=== PATIENT | female | born 1975 | race Caucasian/White ===

== ENCOUNTER → 2022-06-07 11:44 | Outpatient (BNVA) | payer MEDICAID, SELFPAY | PROVIDERS: PCP Family Medicine; Visit Provider Nurse Practitioner Psychiatric/Mental Health | DX: F11.20 Opioid dependence, uncomplicated (principal); Z51.81 Encounter for therapeutic drug level monitoring; Z79.899 Other long term (current) drug therapy | CPT/HCPCS: 99212 ==

== ENCOUNTER → 2022-06-14 10:30 | Outpatient (BNVA) | payer MEDICAID, SELFPAY | PROVIDERS: PCP Family Medicine; Visit Provider Nurse Practitioner Psychiatric/Mental Health | DX: Z51.81 Encounter for therapeutic drug level monitoring (principal); F11.20 Opioid dependence, uncomplicated | CPT/HCPCS: 80305; 99212 ==

== ENCOUNTER → 2022-06-21 10:48 | Outpatient (BNVA) | payer MEDICAID, SELFPAY | PROVIDERS: PCP Family Medicine; Visit Provider Nurse Practitioner Psychiatric/Mental Health | DX: Z51.81 Encounter for therapeutic drug level monitoring (principal); F11.20 Opioid dependence, uncomplicated | CPT/HCPCS: 80305; 99212 ==

== ENCOUNTER → 2022-06-28 10:38 | Outpatient (BNVA) | payer MEDICAID, SELFPAY | PROVIDERS: PCP Family Medicine; Visit Provider Nurse Practitioner Psychiatric/Mental Health | DX: Z51.81 Encounter for therapeutic drug level monitoring (principal); F11.20 Opioid dependence, uncomplicated | CPT/HCPCS: 80305; 99212 ==

== ENCOUNTER → 2022-07-05 10:55 | Outpatient (BNVA) | payer MEDICAID, SELFPAY | PROVIDERS: PCP Family Medicine; Visit Provider Nurse Practitioner Psychiatric/Mental Health | DX: Z51.81 Encounter for therapeutic drug level monitoring (principal); F11.20 Opioid dependence, uncomplicated | CPT/HCPCS: 99212 ==

== ENCOUNTER → 2022-08-02 11:21 | Outpatient (BNVA) | payer MEDICAID, SELFPAY | PROVIDERS: PCP Family Medicine; Visit Provider Nurse Practitioner Psychiatric/Mental Health | DX: F11.20 Opioid dependence, uncomplicated (principal) | CPT/HCPCS: 99212 ==

== ENCOUNTER 2022-08-31 11:03 | Outpatient (REF) | payer MEDICAID, SELFPAY ==
[2022-09-10 09:38] LABS: Buprenorphine 7; Naloxone NEGATIVE; Norbuprenorphine 53
== END 2022-08-31 11:04 | disposition home or self-care (01) ==
LOC: HO.LAB 11:03
PROVIDERS: PCP Family Medicine; Visit Provider Nurse Practitioner Psychiatric/Mental Health
DX: F11.20 Opioid dependence, uncomplicated (principal); Z51.81 Encounter for therapeutic drug level monitoring; Z79.899 Other long term (current) drug therapy
CPT/HCPCS: 80305; 80348; 80362; 99212

== ENCOUNTER → 2022-09-27 11:13 | Outpatient (BNVA) | payer MEDICAID, SELFPAY | PROVIDERS: PCP Family Medicine; Visit Provider Nurse Practitioner Psychiatric/Mental Health | DX: Z51.81 Encounter for therapeutic drug level monitoring (principal); F11.20 Opioid dependence, uncomplicated | CPT/HCPCS: 99212 ==

== ENCOUNTER → 2022-10-25 11:29 | Outpatient (BNVA) | payer MEDICAID, SELFPAY | PROVIDERS: PCP Family Medicine; Visit Provider Nurse Practitioner Psychiatric/Mental Health | DX: F11.20 Opioid dependence, uncomplicated (principal) | CPT/HCPCS: 99212 ==

== ENCOUNTER → 2022-11-22 11:30 | Outpatient (BNVA) | payer MEDICAID, SELFPAY | PROVIDERS: PCP Family Medicine; Visit Provider Nurse Practitioner Psychiatric/Mental Health | DX: F11.20 Opioid dependence, uncomplicated (principal); Z51.81 Encounter for therapeutic drug level monitoring; Z79.899 Other long term (current) drug therapy | CPT/HCPCS: 80305; 99212 ==

== ENCOUNTER → 2022-12-20 11:29 | Outpatient (BNVA) | payer OTHER, SELFPAY | PROVIDERS: PCP Family Medicine; Visit Provider Nurse Practitioner Psychiatric/Mental Health | DX: Z51.81 Encounter for therapeutic drug level monitoring (principal); F11.20 Opioid dependence, uncomplicated | CPT/HCPCS: 80305; 99212 ==

== ENCOUNTER → 2023-01-17 11:03 | Outpatient (BNVA) | payer OTHER, SELFPAY | PROVIDERS: PCP Family Medicine; Visit Provider Nurse Practitioner Psychiatric/Mental Health | DX: Z51.81 Encounter for therapeutic drug level monitoring (principal); F11.20 Opioid dependence, uncomplicated | CPT/HCPCS: 99212 ==

== ENCOUNTER → 2023-02-15 11:12 | Outpatient (BNVA) | payer MEDICAID, SELFPAY | PROVIDERS: PCP Family Medicine; Visit Provider Nurse Practitioner Psychiatric/Mental Health | DX: F11.20 Opioid dependence, uncomplicated (principal) | CPT/HCPCS: 99212 ==

== ENCOUNTER 2023-03-29 11:05 | Outpatient (AMB) | payer MEDICAID, SELFPAY ==
--- NOTE | 2023-03-29 11:14 | A.OFFVIS_ITS ---
Intake Vital Signs 03/29/23 11:15 BP 95/50 L Blood Pressure Location Lt brachial Position Sitting Pulse 85 Pulse Oximetry (%) 95 Intake Visit Reasons: MAT VISIT Allergies Penicillins [PENICILLINS] Allergy (Mild, Unverified 02/15/23 11:13) HIVES Antihistamines - Alkylamine [ANTIHISTAMINES - ALKYLAMINE] Adverse Reaction (Intermediate, Unverified 02/15/23 11:13) feels like bugs are crawling on her hydroxyzine [From VISTARIL] Adverse Reaction (Intermediate, Unverified 02/15/23 11:13) feels like bugs are crawling on her GRASS Allergy (Mild, Uncoded 02/15/23 11:13) UNKNOWN HPI MAT VISIT HPI Details Pt presents for OUD treatment follow up Currently being prescribed Suboxone 8 mg b.i.d. Denies any side effects related to medication Review of Systems Const Reports as per HPI and Reports no additional complaints Physical Exam Vital Signs: Last Vital Signs Pulse 85 03/29/23 11:15 BP 95/50 L 03/29/23 11:15 Pulse Ox 95 03/29/23 11:15 Const General: cooperative and comfortable Assessment & Plan Assessment & Plan (1) Opioid use disorder: Code(s): F11.90 - Opioid use, unspecified, uncomplicated Plan: * continue suboxone at current dose * follow up 6 weeks Medications: Refilled buprenorphine-naloxone 8-2 mg (Suboxone) 1 film sublingual BID 42 ea 1RF Coding Level of Care Code Tele Est Pt Level 3 (13164) Diagnoses Opioid use disorder F11.90
[2023-03-29 11:15] VITALS: BP 95/50; PULSE 85; O2SAT 95
== END 2023-03-29 13:03 | disposition home or self-care (01) ==
LOC: HO.HCC 11:05
PROVIDERS: PCP Family Medicine; Visit Provider Nurse Practitioner Psychiatric/Mental Health
DX: F11.90 Opioid use, unspecified, uncomplicated (principal)
CPT/HCPCS: 99213

== ENCOUNTER → 2023-03-29 11:05 | Outpatient (BNVA) | payer MEDICAID, SELFPAY | PROVIDERS: PCP Family Medicine; Visit Provider Nurse Practitioner Psychiatric/Mental Health | DX: Z51.81 Encounter for therapeutic drug level monitoring (principal); F11.90 Opioid use, unspecified, uncomplicated ==

== ENCOUNTER 2023-05-10 10:49 | Outpatient (AMB) | payer MEDICAID, SELFPAY ==
[2023-05-10 10:59] VITALS: BP 102/66; PULSE 70; O2SAT 99
--- NOTE | 2023-05-10 10:59 | A.OFFVIS_ITS ---
Intake Vital Signs 05/10/23 10:59 BP 102/66 Blood Pressure Location Lt radial Position Sitting Pulse 70 Pulse Source Pulse Oximeter Pulse Oximetry (%) 99 Oxygen Delivery Method Room Air Intake Visit Reasons: MAT VISIT Intake Note: the patient presents for a mat visit Transportation Planning Technician Required: No Allergies Penicillins [PENICILLINS] Allergy (Mild, Unverified 05/10/23 10:59) HIVES Antihistamines - Alkylamine [ANTIHISTAMINES - ALKYLAMINE] Adverse Reaction (Intermediate, Unverified 05/10/23 10:59) feels like bugs are crawling on her hydroxyzine [From VISTARIL] Adverse Reaction (Intermediate, Unverified 05/10/23 10:59) feels like bugs are crawling on her GRASS Allergy (Mild, Uncoded 05/10/23 10:59) UNKNOWN Do you need a note to return to daycare/school/sports/work: No HPI MAT VISIT HPI Details Pt presents for OUD treatment follow up Currently being prescribed Suboxone 8mg BID Denies any side effects related to medication No questions or concerns at this time. Overall bright affect during visit. Review of Systems Const Reports as per HPI and Reports no additional complaints Physical Exam Vital Signs: Last Vital Signs Pulse 70 05/10/23 10:59 BP 102/66 05/10/23 10:59 Pulse Ox 99 05/10/23 10:59 Oxygen Delivery Method Room Air 05/10/23 10:59 Const General: cooperative and comfortable Assessment & Plan Assessment & Plan (1) Opioid use disorder: Code(s): F11.90 - Opioid use, unspecified, uncomplicated Plan: * continue suboxone at current dose * follow up 6 weeks Medications: Refilled buprenorphine-naloxone 8-2 mg (Suboxone) 1 film sublingual BID 42 ea 1RF Coding Level of Care Code Est Pt Level 3 (75065) Diagnoses Opioid use disorder F11.90
== END 2023-05-10 11:24 | disposition home or self-care (01) ==
LOC: HO.HCC 10:49
PROVIDERS: PCP Family Medicine; Visit Provider Nurse Practitioner Psychiatric/Mental Health
DX: F11.90 Opioid use, unspecified, uncomplicated (principal)
CPT/HCPCS: 99213

== ENCOUNTER → 2023-05-10 10:49 | Outpatient (BNVA) | payer MEDICAID, SELFPAY | PROVIDERS: PCP Family Medicine; Visit Provider Nurse Practitioner Psychiatric/Mental Health | DX: F11.20 Opioid dependence, uncomplicated (principal) | CPT/HCPCS: 99212 ==

== ENCOUNTER 2023-06-21 11:06 | Outpatient (AMB) | payer MEDICAID, SELFPAY ==
[2023-06-21 11:11] VITALS: BP 102/70; PULSE 62; O2SAT 93
--- NOTE | 2023-06-21 11:11 | A.OFFVIS_ITS ---
Intake Vital Signs 06/21/23 11:11 BP 102/70 Blood Pressure Location Lt radial Position Sitting Pulse 62 Pulse Source Pulse Oximeter Pulse Oximetry (%) 93 Oxygen Delivery Method Room Air Intake Visit Reasons: MAT VISIT Intake Note: The patient presents for a mat visit Design Center Consultant Required: No Allergies Penicillins [PENICILLINS] Allergy (Mild, Unverified 06/21/23 11:12) HIVES Antihistamines - Alkylamine [ANTIHISTAMINES - ALKYLAMINE] Adverse Reaction (Intermediate, Unverified 06/21/23 11:12) feels like bugs are crawling on her hydroxyzine [From VISTARIL] Adverse Reaction (Intermediate, Unverified 06/21/23 11:12) feels like bugs are crawling on her GRASS Allergy (Mild, Uncoded 06/21/23 11:12) UNKNOWN Do you need a note to return to daycare/school/sports/work: No HPI MAT VISIT HPI Details Pt presents for OUD treatment follow up Currently being prescribed Suboxone 8mg BID Denies any side effects related to medication Not feeling well today. Review of Systems Const Reports as per HPI, Reports headache(s) and Reports malaise ENT Reports headache(s) Neuro Reports headache(s) Physical Exam Vital Signs: Last Vital Signs Pulse 62 06/21/23 11:11 BP 102/70 06/21/23 11:11 Pulse Ox 93 06/21/23 11:11 Oxygen Delivery Method Room Air 06/21/23 11:11 Const General: cooperative and comfortable Assessment & Plan Assessment & Plan (1) Opioid use disorder: Code(s): F11.90 - Opioid use, unspecified, uncomplicated Plan: * continue suboxone at current dose * follow up 8weeks Medications: Refilled buprenorphine-naloxone 8-2 mg (Suboxone) 1 film sublingual BID 60 ea 1RF Coding Level of Care Code Est Pt Level 3 (49183) Diagnoses Opioid use disorder F11.90
== END 2023-06-21 11:56 | disposition home or self-care (01) ==
PROVIDERS: PCP Family Medicine; Visit Provider Nurse Practitioner Psychiatric/Mental Health
DX: F11.90 Opioid use, unspecified, uncomplicated (principal)
CPT/HCPCS: 99213

== ENCOUNTER → 2023-06-21 11:06 | Outpatient (BNVA) | payer MEDICAID, SELFPAY | PROVIDERS: PCP Family Medicine; Visit Provider Nurse Practitioner Psychiatric/Mental Health | DX: F11.20 Opioid dependence, uncomplicated (principal) | CPT/HCPCS: 99212 ==

== ENCOUNTER 2023-09-19 13:11 | Inpatient (IN) | payer MEDICAID, SELFPAY ==
--- NOTE | ~2023-09-19 | XR_ITS ---
EXAMINATION: XR CHEST CLINICAL INFORMATION: Cough. COMPARISON: 04/24/2016 TECHNIQUE: Frontal view of the chest was obtained. FINDINGS: The lungs are well expanded. No focal consolidation. No pleural effusion. Cardiac silhouette is unchanged. XR/XR chest 1V IMPRESSION: No acute abnormality.
--- NOTE | ~2023-09-19 | US_ITS ---
EXAMINATION: US VENOUS ULTRASOUND WITH DOPPLER LOWER EXTREMITY, BILATERAL CLINICAL INFORMATION: Lower extremity edema COMPARISON: None available. TECHNIQUE: Ultrasound of the deep veins is performed from the hip to the calf with compression sonography and color and pulse Doppler assessment. Spectral analysis with color-flow imaging is performed. FINDINGS: RIGHT: There is normal venous compression and respiratory variation and augmented flow. The visualized common femoral vein, superficial femoral vein, profunda femoral vein, popliteal vein, and the trifurcation region shows no evidence of deep venous thrombosis. There is no significant popliteal fossa cyst. Subcutaneous edema seen within the calf LEFT: There is normal venous compression and respiratory variation and augmented flow. The visualized common femoral vein, superficial femoral vein, profunda femoral vein, popliteal vein, and the trifurcation region shows no evidence of deep venous thrombosis. There is no significant popliteal fossa cyst. Subcutaneous edema seen within the calf If the patient's symptoms persist, followup ultrasound in 5 days 7 days might be of value to exclude proximal propagation from a non-visualized calf vein. US/US venous duplex LE BI IMPRESSION: No DVT demonstrated in the bilateral lower extremity.
[2023-09-19 13:20] VITALS: BP 116/72; PULSE 80; O2SAT 98
[2023-09-19 13:52] VITALS: BP 125/71; PULSE 74; RESP 16; TEMP 37.2; O2SAT 95; BMI 22.7
--- NOTE | 2023-09-19 14:06 | ED_ITS ---
HPI - General Adult General Chief complaint: Altered Mental Status Stated complaint: INCREASED CONFUSION,?UTI PER EMS Time Seen by Provider: 09/19/23 13:49 History of Present Illness HPI narrative: The patient is a 48-year-old female who says that she is normally on Suboxone. She came to the emergency department today by ambulance from [place] because she says she has not seen her for a few days. She says that she heard that he was at this hospital and therefore called an ambulance and was brought here. She has been staying with her sister. She says she normally takes Suboxone 8 mg 2 times a day and has not taken any Suboxone so far today. Additional history was available after talking to the patient's sister Samantha. 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 Apparently the patient was here at this hospital yesterday when her fiance (Clement) was admitted to the hospital for a lower extremity infection. According to the patient's sister Samantha, Clement is a paid caregiver for the patient. He apparently is hired by an organization called [employer] and he has paid to look after her because of her disability secondary to her Korsakoff's syndrome. Stays he describes the patient as having significant dementia. Apparently the patient w as here in the emergency room yesterday when Clement was being admitted. She apparently eloped from the emergency department and it was not clear where she had gone. According to Samantha the patient made it to [place] yesterday and spent the night at her sister's house. Today the sisters and the patient decided she should return to the hospital and so called an ambulance. The sister states he says that she went to the home where the patient has been staying with Clement and stays he describes this as a ?hoarder house. The sister states he is very concerned about the care the patient is receiving. The sister further states that the patient's parents have disowned her and are not involved. As far as the sister knows there is no guardian for the patient. Related Data Previous Rx's Medication Instructions Recorded buprenorphine 8 mg-naloxone 2 mg 1 film sublingual BID #60 ea 09/13/23 sublingual film (Suboxone) Allergies Allergy/AdvReac Type Severity Reaction Status Date / Time Penicillins [PENICILLINS] Allergy Mild HIVES Verified 09/19/23 16:35 Antihistamines - Alkylamine AdvReac Intermediate feels like Verified 09/19/23 16:35 [ANTIHISTAMINES - ALKYLAMINE] bugs are crawling on her hydroxyzine [From VISTARIL] AdvReac Intermediate feels like Verified 09/19/23 16:35 bugs are crawling on her GRASS Allergy Mild UNKNOWN Uncoded 06/21/23 11:12 Review of Systems Review of Systems: Yes all other systems are reviewed and are negative [facility] Social History Social History Unable to assess alcohol history related to: Unknown Smoked in Last 30 Days: Yes Use of substances other than those prescribed or required for medical reasons: Unknown Advance Directives: No Advance Directives Information Provided: Yes Patient : No Physical Exam ED Vital Signs: Vital Signs - 24 hr 09/19/23 13:52 09/19/23 14:15 09/19/23 14:30 Temperature 98.9 F 98.3 F Pulse Rate 74 76 Respiratory Rate 16 16 16 Blood Pressure 125/71 100/66 Pulse Oximetry 95 95 Oxygen Delivery Method Room Air Room Air BMI result Body Mass Index 22.7 Const Other: The patient is a slight 48-year-old woman who was awake and alert. She seems poorly oriented. She does not seem in distress. HENMT Other: Face is symmetrical. Mucous membranes moist. Eyes Other: Pupils are round equal, conjunctivae clear, extraocular movements intact Neck Other: No JVD Resp Effort & Inspection: normal respiratory effort Auscultation: clear to auscultation bilaterally Cardio Rate: regular rate Rhythm: regular rhythm Heart sounds: S1 normal heart sound present and S2 normal heart sound present Skin Other: Skin is dry and unremarkable Neuro Other: The patient is awake and alert. She seems poorly oriented. No obvious cranial nerve deficits. Her gait seems reasonably steady. She does not seem to have obvious focal neurological deficits but her cognition seems impaired. Extrem Other: No peripheral edema. Medications Administered Discontinued Medications Generic Name Dose Route Start Last Admin Trade Name Christopherq PRN Reason Stop Dose Admin Buprenorphine/Naloxone 1 film 09/19/23 14:06 09/19/23 14:33 Buprenorphine/Naloxone 8/2 Mg Film SUBLINGUAL 09/19/23 14:07 1 film ONCE ONE Administration Medical Decision Making Medical Decision Making MDM Narrative: The patient is a 48-year-old female who may have Korsakoff syndrome and who was on Suboxone 8 mg b.i.d.. As far as I can tell the person new normally looks after her has been hospitalized and she therefore presented to her sister's house for coming here by ambulance today. The patient is asking to see Clement, her caregiver. She has tested positive for opioids and fentanyl. This would be unusual for a person taking Suboxone. After speaking to the patient's sister Samantha it is not clear whether the patient is considered to have capacity to make any decisions. I have consulted with case management who have requested a psychiatric consult to determine capacity. As I suspect the patient does not have capacity to make her own decisions I think the patient will need to be held in the emergency department at least until further information can be obtained. I have ordered the patient's Suboxone. The patient has requested nicotine gum. Lab Data Labs: Lab Results 09/19/23 09/19/23 Range/Units 14:33 14:34 Urine Color Yellow Urine Appearance Clear Urine pH 6.0 (5.0-9.0) Ur Specific [place] 1.025 (1.005-1.025) Urine Protein Trace (Neg-Trace) mg/dL Urine Glucose (UA) Negative (Negative) mg/dL Urine Ketones Trace (Negative) mg/dL Urine Blood Small (1+) H (Negative) Urine Nitrite Negative (Negative) Ur Leukocyte Esterase Negative (Negative) Urine RBC 3-5 H (0-2) /HPF Urine WBC 0-5 (0-5) /HPF Ur Squamous Epith Cells 3-5 (0-2) /HPF Calcium Oxalate Crystal Present Urine Bacteria None Seen (None Seen) Hyaline Casts 0-2 (0-2) /LPF Urine Opiates Screen POSITIVE H (Not Detect) Urine Fentanyl Screen POSITIVE H (Not Detect) Ur Barbiturates Screen Not Detected (Not Detect) Ur Phencyclidine Scrn Not Detected (Not Detect) Ur Amphetamines Screen Not Detected (Not Detect) U Benzodiazepines Scrn Not Detected (Not Detect) Urine Cocaine Screen Not Detected (Not Detect) U Marijuana (THC) Screen Not Detected (Not Detect) Discharge Plan Discharge Clinical Impression: Cognitive impairment, Opioid use disorder Patient Disposition: Still a Patient Prescriptions: No Action buprenorphine-naloxone [Suboxone] 8-2 mg film 1 film sublingual BID Qty: 60 0RF
[2023-09-19 14:15] VITALS: RESP 16
[2023-09-19 14:30] VITALS: BP 100/66; PULSE 76; RESP 16; TEMP 36.8; O2SAT 95
[2023-09-19] MEDS: Buprenorphine/Naloxone 8/2 mg FILM 1 FILM SUBLINGUAL ×2 (14:33→21:39)
[2023-09-19 14:43] LABS: Appearance Urine Clear; Color Urine Yellow; Glucose Urine UA Negative (Negative); Leukocyte Esterase Urine Negative (Negative); Nitrite Urine Negative (Negative); Specific Gravity - Urine 1.025 (1.005-1.025); UMIC TRIGGER UACC YES; Urine Blood Small (1+) (Negative); Urine Ketones Trace mg/dL (Negative); Urine Protein Trace mg/dL (Neg-Trace)
[2023-09-19 14:49] LABS: Amphetamine Screen Urine Not Detected (Not Detect); Barbiturates, Urine Not Detected (Not Detect); Benzodiazepines Screen Urine Not Detected (Not Detect); Cannabinoid Screen Urine Not Detected (Not Detect); Cocaine Screen Urine Not Detected (Not Detect); Fentanyl, urine POSITIVE (Not Detect); Opiate Screen Urine POSITIVE (Not Detect); Phencyclidine Screen Urine Not Detected (Not Detect)
[2023-09-19 14:59] LABS: Bacteria Urine None Seen (None Seen); Calcium Oxalate Crystals Urine Present; Hyaline Casts Urine 0-2 /LPF (0-2); WBC Urine 0-5 /HPF (0-5)
--- NOTE | 2023-09-19 15:00 | PC.NURSE ---
Pt is alert to self and place, here because sister is concerned about pt having UTI, pt needs constant redirection. VMT observation set up due to pt being a flight risk.
--- NOTE | 2023-09-19 15:44 | MHC.EDTECH ---
Patient asked for a nicotine patch and for . Charge nurse jero Vaca
[2023-09-19] MEDS: Nicotine Polacrilex 2 MG GUM BUCCAL (17:22)
[2023-09-19 17:32] LABS: MANUAL DIFF FLAG NO
[2023-09-19 17:46] LABS: Basophils Percent Auto 0.5 % (0-2); Eosinophils Absolute Auto 0.1 X10*3/uL (0.0-0.4); Eosinophils Percent Auto 1.2 % (0-4); Hematocrit 38.3 % (37.0-47.0); Hemoglobin 12.9 g/dl (12.0-16.0); Imm Gran Abs Auto 0.02 X10*3/uL (0.00-0.03); Imm Gran Pct Auto 0.2 % (0.0-0.4); Lymphocytes Absolute Auto 1.7 X10*3/uL (1.2-4.9); Lymphocytes Percent Auto 19.5 % (20-40); Mean Corpuscular HGB Conc 33.7 g/dl (31.0-35.0); Mean Corpuscular Hemoglobin 32.4 pg (27.0-33.0); Mean Corpuscular Volume 96.2 fL (80.0-98.0); Mean Platelet Volume 10.4 fL (9.4-12.3); Monocytes Absolute Auto 0.6 X10*3/uL (0.1-1.2); Monocytes Percent Auto 6.5 % (2-11); Neutrophils Absolute Auto 6.1 x10*3/uL (2.0-8.3); Neutrophils Percent Auto 72.1 % (45-73); Platelet Count 169 X10*3/uL (160-400); Red Blood Count 3.98 X10*6/uL (4.20-5.50); Red Cell Distribution Width 12.4 % (11.0-16.0); White Blood Count 8.4 X10*3/uL (4.8-10.8)
[2023-09-19 17:52] LABS: Alanine Aminotransferase 13 U/L (0-31); Albumin Level 4.3 g/dL (3.5-5.0); Alkaline Phosphatase 40 U/L (39-117); Anion Gap 12 (12-20); Aspartate Amino Transferase 16 U/L (5-31); Bilirubin Direct 0.2 mg/dL (0.0-0.5); Bilirubin Total 0.4 mg/dL (0.0-1.0); Blood Urea Nitrogen 13 mg/dL (9-16); Calcium 9.7 mg/dL (8.4-10.2); Carbon Dioxide 26 mmol/L (22-29); Chloride 106 mmol/L (96-108); Creatinine Clr Calc Pharmacy 75.5; Estimated Glomerular Filt Rate > 60; Ethanol < 10 mg/dL; Glucose Random 104 mg/dL (60-115); Sodium 140 mmol/L (135-145); Total Protein 7.1 g/dL (6.5-8.0)
[2023-09-19 19:24] VITALS: BP 120/69; PULSE 69; RESP 17; TEMP 37.2; O2SAT 95
--- NOTE | 2023-09-19 19:25 | PC.NURSE ---
this rn assumed care of pt. pt sitting up in stretcher tearful at this time wondering where he is. vss. camera in place for safety.
--- NOTE | 2023-09-19 20:12 | MHC.CM.ED ---
Addendum entered by Joann Lea 09/19/23 21:45: Received a telephone call from Risa, patient's sister. Risa expressed many concerns: Clement is not caring for her sister properly, Sister is dirty, no food in home, sister has lost at least 30 pounds, home hoarder situation, Clement allows sister to drink alcohol and sister drank and drove 2 months ago. Care was totalled. Pt has an active license. Risa tells CM that her sister lies and makes up stories. States her sister was diagnosed with bipolar disorder and has been manic. Risa tells CM that her sister has been hospitalized many times for psychiatric concerns, but never stays long. Risa tells CM that she has a HCP at home, which was completed yesterday. Risa tells CM that the patient signed it and there were 2 witnesses. States her neighbor has a fax machine and she will fax the HCP to us tomorrow. Fax number given. HCP#1 Is sister, Conchis Block ([phone]) and she is deaf. HCP #2 is Risa ([phone]). Risa tells CM that both she and her sister would be happy to make medical decisions for her sister if she is deemed to not have capacity and her HCP is invoked. Risa requests that CM call her with any updates and testing results. CARE team consult placed by provider. Addendum entered by Joann Lea 09/19/23 20:31: Provider will order CARE team consult. 1:1 sitter now at bedside. Original Note: CM reviewed medical record. Psych consult is pending for capacity. Pt does not have a HCP and according to her sister, does not have a guardian. Pt has been diagnosed with Korsakoff's dementia and opioid use disorder. Active with [facility] in [facility] for MAT. Pt is on Suboxone. According to sisterSamantha ([phone]), patient's significant other, Clement Wan ([phone]) is a paid MOUNT[employer] SERVICES MANAGER for this patient through [employer] . Samantha is concerned that her sister is not being cared for well, that the home is a hoarder situation and that her sister does not have the mental capacity to make decisions for herself. Pt had a tox screen that was positive for opiates and fentanyl. Significant other was admitted to [facility] yesterday for infected foot. CM attempted to meet with patient. Pt is pacing in room 7. She has a camera in room. She appears very fearful of CM. She is very thin, admits to having little food. Is speaking with rapid speech, unable to stay on topic and is fixated on going to see her boyfriend, Clement. CM explained that she is a patient in the emergency room and cannot visit her boyfriend at this time. Pt is very upset about not seeing him, and continues to ask to leave. Pt denies any abuse from boyfriend of any kind, and states that her sister is having a sexual relationship with her boyfriend. Pt continually tells CM that she walks a lot. Pt denies seeing Sharyn Rios for MAT, although she has had many visits with her. Patient does not seem to have capacity. CM spoke with charge nurse regarding concerns about patient being in room 7, even with a camera, as patient is determined to visit her boyfriend in the hospital. Pt was in ED yesterday with boyfriend, and then left. Ended up at her sisters in [place]. Unsure how patient got to her sisters. Pt is a flight risk. CM also questioned if this patient would be safer in the pod. CM will follow for discharge planning. Will request CARE team evaluation.
[2023-09-19] MEDS: OLANZapine ODT 10 MG TAB.RAPDIS 20 MG TRANSLINGU (21:39)
--- NOTE | 2023-09-19 21:43 | PC.NURSE ---
pt medicated epr mar, pt tolerated well with water. pt has racing thoughts at this time and continues to ask for .
--- NOTE | 2023-09-19 22:31 | PC.NURSE ---
pt sleeping. respirations even and unlabored. sitter at bedside for pt safety.
--- NOTE | 2023-09-20 01:13 | PC.NURSE ---
care team at bedside.
--- NOTE | 2023-09-20 03:00 | PC.NURSE ---
pt transported to overflow at this time, pt noted to have bra on and necklace, overflow RN Domingo aware. security at bedside for transport.
[2023-09-20 06:00] VITALS: BP 96/48; PULSE 50; RESP 16; TEMP 36.7; O2SAT 98
[2023-09-20 07:38] VITALS: BP 135/68; PULSE 57; RESP 17; TEMP 36.6; O2SAT 98
[2023-09-20] MEDS: Buprenorphine/Naloxone 8/2 mg FILM 1 FILM SUBLINGUAL ×2 (10:19→20:32)
--- NOTE | 2023-09-20 11:10 | PC.NURSE ---
handoff from tracy received. pt brought w tech and security to the pod with paperwork in chart in wheelchair. no respiratory distress.
--- NOTE | 2023-09-20 12:53 | PC.NURSE ---
PATIENT SEEN BY KASIA ECHOLS) PT AWARE OF PLAN OF CARE.
--- NOTE | 2023-09-20 15:15 | MHC.CM.ED ---
Patient remains in ER BH Pod. Spoke with Alecia from the [employer]. Alecia can be reached via telephone at [phone]. Clinical updates given. Psych consult is pending to see if patient has the capacity to make her own decisions. Still waiting for patient's sister to send a copy of HCP. Continue to monitor for d/c needs.
--- NOTE | 2023-09-20 16:55 | PC.NURSE ---
PT SEEN BY PIERCER (JESICA). PT AWARE OF PLAN OF CARE.
--- NOTE | 2023-09-20 17:01 | PHA.MEDREC ---
Pharmacy Consult ? Medication Reconciliation Pharmacy has completed the medication reconciliation. Patient states the only medication she takes is Suboxone Bobbi Moura CPhT
--- NOTE | 2023-09-20 17:21 | PC.NURSE ---
resting in bed 5 mostly and out for walking in department at times. calm. has been seen by Barb BHAT.
--- NOTE | 2023-09-20 17:36 | P.CNPS_ITS ---
History of Present Illness Date of Service: 09/20/2023 Chief Complaint: INCREASED CONFUSION,?UTI PER EMS Reason for Consult: capacity Discussed with referring provider: Yes Sources of Information: patient interviewed, chart reviewed and crisis/core team assessment reviewed HPI Narrative: Ms. Carlos is a 48 year-old woman with hx of korsokoff. Pt came via EMS looking for Clement who pt reports is her fiance and she wants to have a baby with him. Collateral information from her sister who reported Clement is caregiver who has been hire to look after her. Although pt is able to tell that this is [facility], and that it is August, pt unable to tell how long she has been in the hospital. She states she is living here. She is unable to tell hx of medical condition. When asked how is she planning to look for this person, pt states I'll just wait here. She reports drinking fluids but poor appetite. Pt appears manourished. Diagnostics Vital Signs (24Hr): Vital Signs - 24 hr 09/19/23 19:24 09/20/23 06:00 09/20/23 07:38 Temperature 98.9 F 98.0 F 97.8 F Pulse Rate 69 50 57 Respiratory Rate 17 16 17 Blood Pressure 120/69 96/48 L 135/68 Pulse Oximetry 95 98 98 Oxygen Delivery Method Room Air Room Air Room Air BMI result Body Mass Index 22.7 Labs 09/19/23 17:25 09/19/23 17:25 Labs: Laboratory Results - last 48 hr 09/19/23 09/19/23 09/19/23 14:33 14:34 17:25 WBC 8.4 RBC 3.98 L Hgb 12.9 Hct 38.3 MCV 96.2 MCH 32.4 MCHC 33.7 RDW 12.4 Plt Count 169 MPV 10.4 Immature Gran % (Auto) 0.2 Neut % (Auto) 72.1 Lymph % (Auto) 19.5 L Sanders % (Auto) 6.5 Eos % (Auto) 1.2 Baso % (Auto) 0.5 Lymph # (Auto) 1.7 Sanders # (Auto) 0.6 Eos # (Auto) 0.1 Baso # (Auto) 0.0 Abs Immat Gran (auto) 0.02 Absolute Neuts (auto) 6.1 Absolute Nucleated RBC 0.000 Nucleated RBC % (auto) 0.0 Sodium 140 Potassium 4.0 Chloride 106 Carbon Dioxide 26 Anion Gap 12 BUN 13 Creatinine 0.68 Estim Creat Clear Calc 75.5 Estimated GFR > 60 Random Glucose 104 Calcium 9.7 Total Bilirubin 0.4 Direct Bilirubin 0.2 AST 16 ALT 13 Alkaline Phosphatase 40 Total Protein 7.1 Albumin 4.3 Urine Color Yellow Urine Appearance Clear Urine pH 6.0 Ur Specific [place] 1.025 Urine Protein Trace Urine Glucose (UA) Negative Urine Ketones Trace Urine Blood Small (1+) H Urine Nitrite Negative Ur Leukocyte Esterase Negative Urine RBC 3-5 H Urine WBC 0-5 Ur Squamous Epith Cells 3-5 Calcium Oxalate Crystal Present Urine Bacteria None Seen Hyaline Casts 0-2 Urine Opiates Screen POSITIVE H Urine Fentanyl Screen POSITIVE H Ur Barbiturates Screen Not Detected Ur Phencyclidine Scrn Not Detected Ur Amphetamines Screen Not Detected U Benzodiazepines Scrn Not Detected Urine Cocaine Screen Not Detected U Marijuana (THC) Screen Not Detected Ethyl Alcohol < 10 Mental Status Exam Mental Status Exam Narrative: Pt is thin, malnourished, in NAD Behavior: cooperative Psychomotor: no agitation or retardation noted Speech: mostly clear, repetitive, spontaneous TP: goal oriented- looking for this person TC: looking for Clement Mood: okay Affect: blunted SI: denies HI: denies VH/AH: no overt signs Delusions: suspect more confabulation s/s to dementia than delusional content Insight/judgment: impaired x 2. Memory/cog: alert, oriented to place, month not situation. May complete MOCA/ACL. Medications Medications Current Medications Buprenorphine/Naloxone (Buprenorphine/Naloxone 8/2 Mg Film) 1 film SUBLINGUAL BID JEANNINE Last Admin: 09/20/23 10:19 Dose: 1 film Allergies Allergies Allergy/AdvReac Type Severity Reaction Status Date / Time Penicillins [PENICILLINS] Allergy Mild HIVES Verified 09/19/23 16:35 Antihistamines - Alkylamine AdvReac Intermediate feels like Verified 09/19/23 16:35 [ANTIHISTAMINES - ALKYLAMINE] bugs are crawling on her hydroxyzine [From VISTARIL] AdvReac Intermediate feels like Verified 09/19/23 16:35 bugs are crawling on her GRASS Allergy Mild UNKNOWN Uncoded 06/21/23 11:12 Assessment & Plan Assessment & Plan (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 Carlos is a 48 year-old woman with hx of Korsakoff who came via EMS looking for Clement who she reports is her fiance and she wants his baby. Clement apparently is the person that family pays to care for her due severe cognitive and memory impairments s/s to Korsakoff. Psychiatry consulted to determine capacity. Pt does NOT have capacity to make medical decisions due to unable to show understanding why she is in the hospital, her own medical conditions nor able to show understanding of more complex information. Pt appears with severe cognitive impairments- may complete MOCA and ACL to get better sense of degree of impairment, but conversational testing shows significant impairment in processing and understanding of more complex information, her ability to plan,coordinate. No need for inpatient psychiatric admission. Pt unable to care for herself but this will not change with any psychiatric medication. Total time managing care of this patient today ____ minutes.
--- NOTE | 2023-09-20 18:25 | MHC.CM.ED ---
Addendum entered by Joann Lea 09/20/23 18:42: Per Barb psychology teacher, no psych admission necessary. Kelsy Chase aware of invalid HCP and need for guardianship, as patient does not have capacity. Original Note: Sister Risa Brunson called and spoke with CM. Risa again expressed concerns about her sister not being discharged, as she cannot care for herself and her partner/MARBLE SETTER is not caring for her either. See previous notes. Risa also states that Clement Wan (MARBLE SETTER/partner) is selling drugs and thinks he is selling her sisters suboxone. Risa will fax HCP they completed with her sister on 09/15/23. Fax received. HCP only has 1 witness, as Samantha is the alternate HCP and she signed as a witness, without a date. Will upload HCP into [employer], but I do not think it is valid. Will alert CM management. Per Barb Solano flight test mechanic, patient does NOT have capacity. Psych consult note pending.
[2023-09-20 21:43] VITALS: BP 98/49; PULSE 61; RESP 14; TEMP 36.4; O2SAT 98
[2023-09-21 01:28] VITALS: BP 109/64; PULSE 51; RESP 15; TEMP 36.4; O2SAT 99
[2023-09-21] MEDS: Buprenorphine/Naloxone 8/2 mg FILM 1 FILM SUBLINGUAL ×2 (08:08→20:43)
[2023-09-21 08:14] VITALS: BP 117/71; PULSE 60; RESP 16; TEMP 36.6; O2SAT 98
--- NOTE | 2023-09-21 11:18 | PC.NURSE ---
Assumed care of patient at 1100, patient is sleeping at this time, equal chest rise noted, no apparent distress. Pt remains under case management, dispo to be determined
[2023-09-21] MEDS: Nicotine Polacrilex 2 MG GUM BUCCAL ×3 (13:22→20:43)
[2023-09-21] MEDS: risperiDONE 0.5 MG TABLET PO (14:09)
--- NOTE | 2023-09-21 14:50 | MHC.CM.ED ---
Pt continues to hold in [facility] 5: psych eval completed and shows pt is not able to make health care decisions for self. HCP provided by sister is invalid and guardianship will need to be pursued d/t severely impaired cognitive function of pt r/t Amadeo's dz. Date for hearing to be established. Pt will then require LTC. ED CM to follow.
--- NOTE | 2023-09-21 16:47 | PC.NURSE ---
Pt approached this RN to request dragan chung. Pt then stated I'm not allowed to eat at home . when asked to elaborate pt states Clement doesn't let me eat, he says I can't so I eat when he is gone .
[2023-09-21 20:45] VITALS: BP 106/78; PULSE 75; RESP 20; TEMP 36.7; O2SAT 98
--- NOTE | 2023-09-21 22:55 | PC.NURSE ---
Pt has uneventful day, now sleeping, respirations even and unlabored, no apparent distress. Continue plan of care for CM follow up
[2023-09-22 03:05] VITALS: BP 114/57; PULSE 74; RESP 16; TEMP 36.4; O2SAT 99
--- NOTE | 2023-09-22 06:17 | PC.NURSE ---
Assumed care of pt at 2300. PT oob to bathroom, gait steady. PT mumbling and responding to verbal stimuli. Requested and provided gingerale. PT found to have jewelry and gown with strong. PT belongings inventoried and secured by HOMAR Esposito. PT denies SI/HI sts oh god no I would never hurt myself, I'm
[2023-09-22 08:24] VITALS: BP 102/59; PULSE 55; RESP 15; TEMP 36.6; O2SAT 98
[2023-09-22] MEDS: Nicotine Polacrilex 2 MG GUM BUCCAL ×5 (10:58→20:16)
[2023-09-22] MEDS: Buprenorphine/Naloxone 8/2 mg FILM 1 FILM SUBLINGUAL ×2 (10:58→20:16)
--- NOTE | 2023-09-22 10:59 | PC.NURSE ---
Assumed care of patient at 1045, morning RN documented against suboxone for this am due to patient sleeping. Pt woke up requesting subxone dose when this RN assumed care. Unscheduled dose administered for both suboxone and nicorette gum. Pt is calm and cooperative, respirations even and unlabored, skin pwd, no apparent distress. Continue plan of care for CM follow up
--- NOTE | 2023-09-22 19:17 | PC.NURSE ---
patient appears to remain asleep at present respirations are even and unlabored patient appears in no distress
[2023-09-22 20:14] VITALS: BP 117/70; PULSE 96; RESP 20; TEMP 37.1; O2SAT 99
[2023-09-23] MEDS: LORazepam 1 MG TABLET 2 MG PO ×3 (01:12→13:08)
[2023-09-23 01:23] VITALS: BP 108/61; PULSE 67; RESP 16; TEMP 36.4; O2SAT 100
[2023-09-23] MEDS: Nicotine Polacrilex 2 MG GUM BUCCAL ×4 (05:26→13:08)
[2023-09-23] MEDS: Buprenorphine/Naloxone 8/2 mg FILM 1 FILM SUBLINGUAL (07:50)
[2023-09-23 07:55] VITALS: BP 102/64; PULSE 84; TEMP 37; O2SAT 100
--- NOTE | 2023-09-23 08:04 | PC.NURSE ---
Bud received her AM dose of Suboxone and her PRN Lorazepam. Bud requiring frequent redirection as she continues to try to enter the bathroom when other patients are using it. Bud also requiring redirection when observed pushing on the POD door and taking things out of the garbage. Garbage cans moved and Bud responsive to redirection to stay away from the door.
--- NOTE | 2023-09-23 09:21 | MHC.CM.ED ---
Addendum entered by Velvet Fortune 09/23/23 14:04: Alecia from [facility] will be on site tomorrow 09/24 to visit with patient. Original Note: Patient remains in ER BH pod. Received voicemail from patient's sister,Risa requesting an update on patient. Spoke with Risa via telephone at [phone]. T/W explained guardianship would be pursued. Also explained patient could be with us over a month and could potentially be placed anywhere in the state of [facility]. Risa verbalized understanding. Continue to monitor for d/c needs.
--- NOTE | 2023-09-23 17:02 | P.CNPS_ITS ---
History of Present Illness Date of Service: 09/23/2023 Chief Complaint: INCREASED CONFUSION,?UTI PER EMS Reason for Consult: f/u Sources of Information: patient interviewed, chart reviewed and crisis/core team assessment reviewed HPI Narrative: Interim Hx: pt presenting as increasingly more intrusive, going into peers' room, not able to retain information. No oriented to situation. Diagnostics Vital Signs (24Hr): Vital Signs - 24 hr 09/22/23 20:14 09/23/23 01:23 09/23/23 07:55 Temperature 98.8 F 97.6 F 98.6 F Pulse Rate 96 67 84 Respiratory Rate 20 16 Blood Pressure 117/70 108/61 102/64 Pulse Oximetry 99 100 100 Oxygen Delivery Method Room Air Room Air Room Air BMI result Body Mass Index 22.7 Labs 09/19/23 17:25 09/19/23 17:25 Mental Status Exam Mental Status Exam Narrative: Pt is thin, malnourished, in NAD Behavior: cooperative Psychomotor: no agitation or retardation noted Speech: mostly clear, repetitive, spontaneous TP: goal oriented- looking for this person TC: looking for Clement Mood: okay Affect: blunted SI: denies HI: denies VH/AH: no overt signs Delusions: suspect more confabulation s/s to dementia than delusional content Insight/judgment: impaired x 2. Memory/cog: alert, oriented to place, month not situation. May complete MOCA/ACL. Medications Medications Current Medications Buprenorphine/Naloxone (Buprenorphine/Naloxone 8/2 Mg Film) 1 film SUBLINGUAL BID [facility] Last Admin: 09/23/23 07:50 Dose: 1 film Nicotine Polacrilex (Nicotine Polacrilex 2 Mg Gum) 2 mg BUCCAL 8XD [facility] Last Admin: 09/23/23 16:19 Dose: Not Given Allergies Allergies Allergy/AdvReac Type Severity Reaction Status Date / Time Penicillins [PENICILLINS] Allergy Mild HIVES Verified 09/19/23 16:35 Antihistamines - Alkylamine AdvReac Intermediate feels like Verified 09/19/23 16:35 [ANTIHISTAMINES - ALKYLAMINE] bugs are crawling on her hydroxyzine [From VISTARIL] AdvReac Intermediate feels like Verified 09/19/23 16:35 bugs are crawling on her GRASS Allergy Mild UNKNOWN Uncoded 06/21/23 11:12 Assessment & Plan Assessment & Plan (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 Carlos is a 48 year-old woman with hx of Korsakoff who came via EMS looking for Clement who she reports is her fiance and she wants his baby. Clement apparently is the person that family pays to care for her due severe cognitive and memory impairments s/s to Korsakoff. Psychiatry consulted to determine capacity. Pt does NOT have capacity to make medical decisions due to unable to show understanding why she is in the hospital, her own medical conditions nor able to show understanding of more complex information. Pt appears with severe cognitive impairments- may complete MOCA and ACL to get better sense of degree of impairment, but conversational testing shows significant impairment in processing and understanding of more complex information, her ability to plan,coordinate. No need for inpatient psychiatric admission. Pt unable to care for herself but this will not change with any psychiatric medication. PLAN 09/23- start seroquel 50mg po TID, prn seroquel 100mg po q6h Total time managing care of this patient today ____ minutes.
[2023-09-23] MEDS: QUEtiapine Fumarate 100 MG TABLET PO (17:06)
[2023-09-23] MEDS: QUEtiapine Fumarate 50 MG TABLET PO (17:06)
[2023-09-23] MEDS: Midazolam HCl/PF 2 MG/2 ML VIAL IM (20:25)
[2023-09-23] MEDS: diphenhydrAMINE HCL 50 MG/ML VIAL IM (20:25)
[2023-09-23] MEDS: Haloperidol Lactate 5 MG/ML VIAL IM (20:26)
--- NOTE | 2023-09-23 23:16 | MHC.EDTECH ---
This pct just assumed care of pt ,RN Hannah said not to wake Pt up to get vitals .
[2023-09-23 23:40] VITALS: BP 100/74; PULSE 63; RESP 16; TEMP 37.1; O2SAT 100
[2023-09-24] VITALS (8 sets, daily range): BP systolic 94–147; BP diastolic 56–98; PULSE 60–98; RESP 15–16; TEMP 36–36.7; O2SAT 97–100
[2023-09-24] MEDS: Divalproex Sodium 250 MG TABLET.DR PO ×5 (00:28→20:12)
[2023-09-24] MEDS: Buprenorphine/Naloxone 8/2 mg FILM 1 FILM SUBLINGUAL ×3 (00:28→20:12)
[2023-09-24] MEDS: QUEtiapine Fumarate 50 MG TABLET PO ×4 (00:28→20:12)
[2023-09-24] MEDS: QUEtiapine Fumarate 100 MG TABLET PO (00:28)
--- NOTE | 2023-09-24 01:01 | PC.NURSE ---
client tucked in after miedcated with hs meds, patient still periodically confised and restless, picking at the air.
--- NOTE | 2023-09-24 03:39 | PC.NURSE ---
patient seems to be sleeping well at this time
--- NOTE | 2023-09-24 04:01 | MHC.EDTECH ---
Patient was up ,vitals taken ,Patient was a 2 asst to ambulate to bathroom ,void and back in bed .
--- NOTE | 2023-09-24 04:06 | PC.NURSE ---
patient awoke briefly, ambulated to bathroom w tech and patient voided, during vs it was observed patient appeared to be grabbing at items on/near floor and it appeared patient was at increased risk of falling unclear if caused by recent med changes or confusion. notified mirror department supervisor and charge nurse, notifying provider.
[2023-09-24] MEDS: Nicotine Polacrilex 2 MG GUM BUCCAL ×3 (09:06→20:12)
--- NOTE | 2023-09-24 09:10 | PC.NURSE ---
this RN resumed care of pt at this time. pt now awake/alert & oriented to self. pt seemingly lethargic but ambulated to the restroom w/ sitter w/ steady gait. resting comfortably in no apparent distress w/ the lights dimmed. pt denies SI/HI at this time. medication administered per provider order. no sob/wob noted. respirations even and unlabored. pt calm/cooperative at this time. 1:1 sitter for safety precautions. call noriega placed within reach.
--- NOTE | 2023-09-24 09:46 | MHC.CM.ED ---
Patient remains in ER. Alecia from [facility] on-site to meet with patient. Also spoke with Clement in [address]. Alecia [facility] will be pursuing guardianship so that LTC placement can be found. Continue to monitor for d/c needs.
--- NOTE | 2023-09-24 10:19 | PC.NURSE ---
pt currently resting/asleep in no apparent distress at this time. respirations remain even and unlabored. 1:1 sitter remains present. call noriega placed within reach.
--- NOTE | 2023-09-24 16:38 | PC.NURSE ---
pt aware at this time. medication originally delayed d/t pt sleeping. medication now administered per provider order. vss and up to date. pt still remains calm and cooperative but talking/mumbling incoherently to herself at this time. pt still denies SI/HI at this time. respirations remain even and unlabored. 1:1 sitter present. call noriega placed within reach.
[2023-09-24] MEDS: Magnesium Oxide 400 MG TABLET PO (20:12)
--- NOTE | 2023-09-24 20:15 | PC.NURSE ---
pt alert,sleepy/lethargic,mumbling sentences under her breath. pt took bedtime medications with no issues, swallowed pills whole with water. pt has no current complaints, drank 1 full cup of water.offered more drink or food but patient declined. resting comfortably, respirations even and unlabored, vital signs updated and entered. call noriega within reach, 1:[address] plan of care ongoing
[2023-09-25 06:00] VITALS: BP 91/59; PULSE 65; RESP 14; TEMP 36.4; O2SAT 98
--- NOTE | 2023-09-25 06:40 | PC.NURSE ---
pt slept throughout the night with no issues
--- NOTE | 2023-09-25 07:39 | PC.NURSE ---
this RN assumed care, pt sleeping at this time.
[2023-09-25] MEDS: Divalproex Sodium 250 MG TABLET.DR PO ×3 (09:51→21:07)
[2023-09-25] MEDS: Buprenorphine/Naloxone 8/2 mg FILM 1 FILM SUBLINGUAL ×2 (09:52→21:07)
[2023-09-25] MEDS: QUEtiapine Fumarate 50 MG TABLET PO ×3 (09:52→21:07)
--- NOTE | 2023-09-25 09:59 | PC.NURSE ---
pt awake and alert, mumbling sentences under her breath. Breathing even and unlabored. pt medicated per MAR, did not want nicotine gum.
--- NOTE | 2023-09-25 11:46 | MHC.CM.ED ---
Patient remains in ER. Risk letter received from [employer] stating Clement should not be caregiver for patient any longer. Tonia Laird CM director aware. Continue to monitor for d/c needs.
[2023-09-25 12:15] VITALS: BP 107/59; PULSE 74; RESP 16; TEMP 37; O2SAT 96
--- NOTE | 2023-09-25 12:22 | PC.NURSE ---
vss and up to date at this time. pt declines nicorette gum administration. resting comfortably in no apparent distress w/ the lights dimmed at this time. calm/cooperative. respirations even and unlabored. 1:1 sitter present. call noriega placed within reach.
[2023-09-25 14:31] VITALS: BP 126/72; PULSE 69; RESP 16; O2SAT 96
--- NOTE | 2023-09-25 14:31 | PC.NURSE ---
pt continues to sleep/rest in no apparent distress at this time. respirations remain even and unlabored. 1:1 sitter present. call noriega placed within reach.
--- NOTE | 2023-09-25 14:50 | PC.NURSE ---
report given to RAFFAELE Gardner in overflow at this time. transport notified at this time.
[2023-09-25] MEDS: Nicotine Polacrilex 2 MG GUM BUCCAL (14:54)
--- NOTE | 2023-09-25 15:40 | PC.NURSE ---
this rn assumed care of pt. overflow CORD SPLICER reported to this RN that pt was making SI statements upon coming to overflow. this RN assessed pt, pt denying SI and HI to this rn. squeegee finisher Betito nogueira.
[2023-09-25 15:56] VITALS: BP 94/61; PULSE 93; RESP 16; TEMP 36.5; O2SAT 99
--- NOTE | 2023-09-25 16:08 | PC.NURSE ---
this rn assisted pt to restroom, pt ambulated with steady gait.
[2023-09-25 19:52] VITALS: BP 93/60; PULSE 74; RESP 17; TEMP 36.7; O2SAT 92
[2023-09-25] MEDS: Magnesium Oxide 400 MG TABLET PO (21:07)
[2023-09-26 04:51] VITALS: BP 99/50; PULSE 67; RESP 19; TEMP 36.8; O2SAT 95
[2023-09-26] MEDS: Divalproex Sodium 250 MG TABLET.DR PO ×3 (07:42→20:16)
[2023-09-26] MEDS: Buprenorphine/Naloxone 8/2 mg FILM 1 FILM SUBLINGUAL ×2 (07:42→20:16)
[2023-09-26] MEDS: QUEtiapine Fumarate 50 MG TABLET PO ×3 (07:42→20:16)
[2023-09-26] MEDS: Nicotine Polacrilex 2 MG GUM 4 MG BUCCAL ×3 (08:19→20:32)
--- NOTE | 2023-09-26 10:55 | PC.NURSE ---
easily arousable, sleeping intermittently. No complaints of pain, cooperative
[2023-09-26 14:00] VITALS: BP 100/50; PULSE 83; RESP 17; TEMP 35.5; O2SAT 96
--- NOTE | 2023-09-26 17:39 | PC.NURSE ---
assumed care of pt at 1500, medical laboratory technician per OCT. pt requesting nicorette gum, admin per OCT. resting queitly in bed, cooperative. Soft spoken, clear speech. Respirations even and unlabored, pt offering no complaints. Assisted to restroom and back to bed, refusing dinner at this time. Safety precautions remain in place.
[2023-09-26] MEDS: Magnesium Oxide 400 MG TABLET PO (20:16)
[2023-09-26 20:29] VITALS: BP 112/67; PULSE 86; RESP 18; TEMP 36.8; O2SAT 97
--- NOTE | 2023-09-26 22:05 | PC.NURSE ---
Assumed care of pt at 19:00: Pt alert to self and place only at this time, forgetfulness noted. Ambulates independently w/ supervision. Cont X2. VSS, breathing non-labored, afebrile. Denies pain. prn nicotine gum given as ordered per pt's request. Pt awake at this time, in bed watching tv, eating snacks, and in overall good spirits. call noriega within reach. Will cont with plan of care, safety precautions remain in place.
[2023-09-27] MEDS: QUEtiapine Fumarate 100 MG TABLET PO ×2 (05:24→22:45)
[2023-09-27] MEDS: Nicotine Polacrilex 2 MG GUM 4 MG BUCCAL ×4 (05:24→21:46)
[2023-09-27 06:00] VITALS: BP 94/68
[2023-09-27] MEDS: Buprenorphine/Naloxone 8/2 mg FILM 1 FILM SUBLINGUAL ×2 (08:12→20:53)
[2023-09-27] MEDS: Divalproex Sodium 250 MG TABLET.DR PO ×3 (08:12→20:53)
[2023-09-27] MEDS: QUEtiapine Fumarate 50 MG TABLET PO ×3 (08:12→20:53)
[2023-09-27] MEDS: Multivitamin TABLET 1 TAB PO (11:27)
[2023-09-27 14:00] VITALS: BP 98/58; PULSE 64; RESP 16; TEMP 35.5
[2023-09-27 20:11] VITALS: BP 92/54; PULSE 71; RESP 16; TEMP 36.4; O2SAT 97
[2023-09-27] MEDS: Magnesium Oxide 400 MG TABLET PO (20:53)
[2023-09-27] MEDS: OLANZapine ODT 10 MG TAB.RAPDIS 20 MG TRANSLINGU (23:22)
--- NOTE | 2023-09-27 23:34 | PC.NURSE ---
Assumed care of patient at 19:00. Pt seen in ED overflow. A&Ox1 to self only. Pt is confused, agitated and disruptive to neighboring patients attempting to sleep, fixating on going outside to smoke a cigarette and increasingly difficult to redirect. Pt medicated per MAR as ordered and appropriate with scheduled suboxone and seroquel, prn nicotine gum; prn seroquel also given with no effect. Covering provider Francisco Ventura notified. Order for 1x sublingual Zyprexa given, awaiting effectiveness. Patient having notable urinary frequency, complains of burning when I pee . Provider notified, clean catch ordered and sent, pending results at this time. Pt ambulates to bathroom steady with standby assist as pt is noted as a flight risk. Redirection and reassurance attempts continue. VSS. Breathing is even and unlabored without distress on RA. Denies pain. Able to change own position. Will continue to monitor medication effects and ensure patient safety for remainder of technical document writer's scheduled care.
[2023-09-27 23:36] LABS: Appearance Urine Clear; Color Urine Yellow; Glucose Urine UA Negative (Negative); Leukocyte Esterase Urine Negative (Negative); Nitrite Urine Negative (Negative); PH 6.5 (5.0-9.0); Specific Gravity - Urine <= 1.005 (1.005-1.025); Urine Blood Negative (Negative); Urine Ketones Negative (Negative); Urine Protein Negative (Neg-Trace)
[2023-09-27 23:39] LABS: Bacteria Urine None Seen (None Seen); Hyaline Casts Urine 0-2 /LPF (0-2); RBC Urine 0-2 /HPF (0-2); Squamous Epithelial Cell Urine 0-2 /HPF (0-2); WBC Urine 0-5 /HPF (0-5)
[2023-09-28] MEDS: Nicotine Polacrilex 2 MG GUM 4 MG BUCCAL ×4 (00:45→20:42)
--- NOTE | 2023-09-28 01:26 | PC.NURSE ---
Patient U/A back negative, discussed with covering Francisco Ventura. Patient agitation improving, pt resting in bed alert and awake watching tv at this time. No distress noted.
[2023-09-28 05:40] VITALS: BP 103/61; PULSE 63; RESP 16; TEMP 36.3; O2SAT 95
--- NOTE | 2023-09-28 07:13 | PC.NURSE ---
No further agitation since pt was medicated and 1:1 sitter placed, pump servicer supervisor notified. Patient observed resting in bed, denies acute complaints. VSS. Breathing even and unlabored without distress. +pp/cms. Bed alarm on and safety measures in place due to elopement risk. Handoff report given at 06:45.
--- NOTE | 2023-09-28 07:41 | PC.NURSE ---
assumed care of pt at 0700. pt sleeping soundly in bed netta, rr even/unlabored. bed alarm on and 1:1 sitter at bedside for pt safety. awaiting breakfast tray. plan of care ongoing.
[2023-09-28] MEDS: Multivitamin TABLET 1 TAB PO (09:34)
[2023-09-28] MEDS: Divalproex Sodium 250 MG TABLET.DR PO ×3 (09:34→19:42)
[2023-09-28] MEDS: QUEtiapine Fumarate 50 MG TABLET PO ×3 (09:34→19:42)
[2023-09-28] MEDS: Buprenorphine/Naloxone 8/2 mg FILM 1 FILM SUBLINGUAL ×2 (09:35→20:42)
--- NOTE | 2023-09-28 10:29 | PC.NURSE ---
pt woke up and consumed breakfast. pt medicated per mar and is compliant with plan of care. pt ambulatory to bathroom with sitter. pt back to sleep. 1:1 sitter at bedside and bed alarm on for pt safety.
[2023-09-28 14:00] VITALS: BP 101/54; PULSE 76; RESP 16; TEMP 36.7; O2SAT 96
--- NOTE | 2023-09-28 18:22 | PC.NURSE ---
pt ambulated to bathroom. provided with snack. pt asking for cigarette and where her , Clement, is. pt thinks she is in [place] and can walk to him. pt given nicorette gum. sitting on side of bed. plan of care ongoing.
[2023-09-28] MEDS: Magnesium Oxide 400 MG TABLET PO (19:42)
--- NOTE | 2023-09-28 19:49 | MHC.EDTECH ---
Patient oob went to bathroom then got herself an ice cream out of freezer. This food writer attempted to reeducate patient that she is not allowed to take food from the freezer. Patient currently arguing with herself about being .
[2023-09-28 20:13] VITALS: BP 106/69; PULSE 77; RESP 16; TEMP 36.2; O2SAT 99
--- NOTE | 2023-09-28 21:35 | PC.NURSE ---
Pt was very restless/agitated wandering the unit looking for her states she is having a baby.Redirected several times snacks given.medicated with nicorette gum at 2039 took pm meds is resting quietly in bed at present time.
[2023-09-29 06:00] VITALS: BP 98/54; PULSE 66; RESP 18; TEMP 36.7; O2SAT 96
[2023-09-29] MEDS: Nicotine Polacrilex 2 MG GUM 4 MG BUCCAL ×5 (07:51→19:40)
[2023-09-29] MEDS: Multivitamin TABLET 1 TAB PO (08:06)
[2023-09-29] MEDS: QUEtiapine Fumarate 100 MG TABLET PO (08:06)
[2023-09-29] MEDS: Buprenorphine/Naloxone 8/2 mg FILM 1 FILM SUBLINGUAL ×2 (08:06→20:12)
[2023-09-29] MEDS: Divalproex Sodium 250 MG TABLET.DR PO ×3 (08:06→20:12)
[2023-09-29] MEDS: QUEtiapine Fumarate 50 MG TABLET PO ×3 (08:07→20:12)
--- NOTE | 2023-09-29 09:51 | PC.NURSE ---
pt up, alert to self only, wandering unit with 1:1 at her side. pt speaking aloud to herself often, thoughts disorganized, delusional at times. pt requested AM nicorette gum then later spat it into her bed and stated I hope it sticks this time . pt then requested more gum. educated on not spitting her gum into her bed. accepted PO AM medications without problem, mediated per MAR. pt ambulating independently, gait appropriate. in NAD, pt rr even/unlabored
--- NOTE | 2023-09-29 13:06 | PC.NURSE ---
pt talking aloud to herself, remains delusional and disorganized in her thought process. continues to talk about being . pt calm at this time.
[2023-09-29 13:59] VITALS: BP 112/69; PULSE 86; RESP 20; TEMP 36.6; O2SAT 96
[2023-09-29 20:07] VITALS: BP 99/72; PULSE 72; RESP 16; TEMP 36.8; O2SAT 97
[2023-09-29] MEDS: Magnesium Oxide 400 MG TABLET PO (20:12)
--- NOTE | 2023-09-29 20:15 | PC.NURSE ---
Pt alert and oriented to self. Confused. Multiple trips to the restroom with 1:1 sitter. Medicated per OCT. Tolerated well. Pt continuously asks Where is Clement? When is he coming? Otherwise pt is calm and cooperative. Ice cream and drink provided as requested. Monitoring is ongoing.
[2023-09-30] MEDS: QUEtiapine Fumarate 100 MG TABLET PO (00:30)
[2023-09-30 05:41] VITALS: BP 103/60; PULSE 81; RESP 16; TEMP 36.3; O2SAT 98
[2023-09-30] MEDS: Nicotine Polacrilex 2 MG GUM 4 MG BUCCAL ×4 (07:43→21:31)
[2023-09-30] MEDS: Divalproex Sodium 250 MG TABLET.DR PO ×3 (07:43→20:18)
[2023-09-30] MEDS: Buprenorphine/Naloxone 8/2 mg FILM 1 FILM SUBLINGUAL ×2 (07:43→20:18)
[2023-09-30] MEDS: Multivitamin TABLET 1 TAB PO (07:43)
[2023-09-30] MEDS: QUEtiapine Fumarate 50 MG TABLET PO ×3 (07:43→20:18)
--- NOTE | 2023-09-30 09:00 | MHC.EDTECH ---
patient was washed up with complete bed changed and teeth brushing.
--- NOTE | 2023-09-30 09:02 | MHC.CM.ED ---
Patient remains in ER overflow. Guardianship paperwork has been given to Obed and Alex from Tonia Laird CM Director. Waiting to court date. Continue to monitor for d/c needs.
[2023-09-30 14:00] VITALS: BP 102/69; PULSE 88; RESP 20; TEMP 37.1; O2SAT 95
--- NOTE | 2023-09-30 14:27 | PC.NURSE ---
Pt sitting quietly on her bed folding towels and washcloths. Pt denies pain, no complaints at this time.
[2023-09-30] MEDS: Magnesium Oxide 400 MG TABLET PO (20:18)
[2023-09-30 20:38] VITALS: BP 95/56; PULSE 76; RESP 20; TEMP 36.5; O2SAT 96
--- NOTE | 2023-09-30 21:35 | PC.NURSE ---
Patient alert and oriented to self only, confused at times. She is calm and cooperative, medicated per MAR. Patient requested a snack, patient given vanilla pudding and dragan crackers. Patient ambulates with a steady gait. Patient has been making multiple trips to the restroom to void. Patient denies urinary symptoms. Plan of care ongoing.
[2023-10-01] MEDS: QUEtiapine Fumarate 100 MG TABLET PO (02:34)
[2023-10-01] MEDS: Nicotine Polacrilex 2 MG GUM 4 MG BUCCAL ×6 (02:34→20:54)
--- NOTE | 2023-10-01 02:42 | PC.NURSE ---
Patient woke up to use a restroom, became agitated, wandering around the unit looking for her baby, redirected several times with minimal effect, medicated with Nicorette gum and PRN Seroquel. Patient currently resting in bed eyes closed, RR 16, respirations are even, unlabored. Plan of care ongoing.
[2023-10-01 05:31] VITALS: BP 100/53; PULSE 71; RESP 17; TEMP 36.5; O2SAT 94
[2023-10-01 08:08] VITALS: BP 87/62; PULSE 78; RESP 14; TEMP 36; O2SAT 97
--- NOTE | 2023-10-01 08:40 | MHC.CM.ED ---
Patient remains in ER overflow. Waiting for court date for guardianship. Patient's sisters are proposed co-guardians. Continue to monitor for d/c needs.
[2023-10-01] MEDS: Divalproex Sodium 250 MG TABLET.DR PO ×3 (09:27→20:46)
[2023-10-01] MEDS: Multivitamin TABLET 1 TAB PO (09:27)
[2023-10-01] MEDS: Buprenorphine/Naloxone 8/2 mg FILM 1 FILM SUBLINGUAL ×2 (09:27→20:46)
[2023-10-01] MEDS: QUEtiapine Fumarate 50 MG TABLET PO ×3 (09:27→20:46)
[2023-10-01 14:00] VITALS: BP 104/72; PULSE 92; RESP 12; TEMP 37.1; O2SAT 98
--- NOTE | 2023-10-01 18:22 | MHC.EDTECH ---
pt went to bathroom
--- NOTE | 2023-10-01 18:23 | MHC.EDTECH ---
pt is back in bed
--- NOTE | 2023-10-01 19:41 | MHC.CM.ED ---
CM returned Risa's call. Requesting updates. Aware that she should receive a telephone call from the Hospital attorneys with the court date once we get one. Aware that process for guardianship can take up to a month or so. Encouraged Risa to visit, but she feels it will only set her sister off and be more harm than help. Encouraged sister to call anytime for updates.
[2023-10-01] MEDS: Magnesium Oxide 400 MG TABLET PO (20:46)
[2023-10-01 21:12] VITALS: BP 113/67; PULSE 82; RESP 17; TEMP 36.7; O2SAT 97
--- NOTE | 2023-10-01 22:21 | MHC.EDTECH ---
pt used the bathroom and went back to bed.
[2023-10-01] MEDS: Acetaminophen 325 MG TABLET 650 MG PO (22:28)
--- NOTE | 2023-10-02 01:53 | PC.NURSE ---
Took report from off-going RN at 2300 hours. Pt is a 48 y/o female who is here from home for concerns of self-neglect and altered mental status, here since Sep 19 from home. Pt is pleasant and cooperative with staff, verbalizes needs appropriately. History of Korsakoffs syndrome secondary to alcohol abuse. Pt is A & O X 1, baseline confusion. Family members are pursuing guardianship, but not finalized yet. Presents reported as not capable of making own decisions. Will continue to monitor.
--- NOTE | 2023-10-02 03:08 | PC.NURSE ---
Pt is sleeping, appears comfortable. No acute distress noted. Changes positions in bed as desired. Verbalizes needs appropriately. Arousable with verbal stimuli. Ambulates independently without assistance. Guardianship and possible placement in long-term care is pending. Will continue to monitor.
[2023-10-02] MEDS: Acetaminophen 325 MG TABLET 975 MG PO (04:56)
--- NOTE | 2023-10-02 05:09 | PC.NURSE ---
Pt is awake and alert, watching TV. Verbalizes needs appropriately. Ambulates as desired with a steady gait. No acute distress observed. RR is regular rate and pattern. Will continue to monitor.
[2023-10-02 06:00] VITALS: BP 117/82; PULSE 76; RESP 18; TEMP 36.7; O2SAT 96
[2023-10-02] MEDS: Nicotine Polacrilex 2 MG GUM 4 MG BUCCAL ×6 (08:01→21:14)
[2023-10-02] MEDS: Multivitamin TABLET 1 TAB PO (08:31)
[2023-10-02] MEDS: Divalproex Sodium 250 MG TABLET.DR PO ×3 (08:31→21:14)
[2023-10-02] MEDS: QUEtiapine Fumarate 50 MG TABLET PO ×3 (08:31→21:14)
[2023-10-02] MEDS: Ibuprofen 400 MG TABLET PO (08:31)
[2023-10-02] MEDS: Buprenorphine/Naloxone 8/2 mg FILM 1 FILM SUBLINGUAL ×2 (08:32→21:13)
[2023-10-02 13:55] VITALS: BP 126/74; PULSE 98; RESP 18; TEMP 37; O2SAT 97
[2023-10-02] MEDS: QUEtiapine Fumarate 100 MG TABLET PO (15:32)
--- NOTE | 2023-10-02 16:38 | PC.NURSE ---
Patient still focused on getting a hold of her family, was given a phone to assist her and educated on how to use it but patient was unsuccessful in being able to get a hold of her family. Patient us upset about this, attempted to comfort patient but remains focused on her family and being with them.
[2023-10-02] MEDS: Magnesium Oxide 400 MG TABLET PO (21:13)
--- NOTE | 2023-10-02 22:59 | MHC.CM.ED ---
Sister Risa called yesterday and today for updates on patient. Risa has concerns that visiting her sister will only upset her and make it more difficult to remain in ED without upset. Waiting court date. Risa aware that it can take about a month from the filing to get a court date.
[2023-10-02 23:18] VITALS: BP 103/62; PULSE 97; RESP 18; TEMP 36.9; O2SAT 95
--- NOTE | 2023-10-02 23:19 | PC.NURSE ---
Patient requesting a snack a was given a pudding and took some dragan crackers and sat down on the ground and ate. Patient calm and cooperative with staff, no s/s of distress noted.
[2023-10-03] MEDS: Nicotine Polacrilex 2 MG GUM 4 MG BUCCAL ×4 (05:18→20:03)
[2023-10-03] MEDS: QUEtiapine Fumarate 100 MG TABLET PO (05:18)
--- NOTE | 2023-10-03 05:21 | PC.NURSE ---
Patient increasingly agitated, pacing, wandering the unit, PRN dose of Seroquel administered, patient also requested nicotine gum
[2023-10-03 05:28] VITALS: BP 109/62; PULSE 77; RESP 16; TEMP 36.2; O2SAT 97
[2023-10-03] MEDS: QUEtiapine Fumarate 50 MG TABLET PO ×3 (08:50→20:03)
[2023-10-03] MEDS: Divalproex Sodium 250 MG TABLET.DR PO ×3 (08:50→20:03)
[2023-10-03] MEDS: Buprenorphine/Naloxone 8/2 mg FILM 1 FILM SUBLINGUAL ×2 (08:50→20:03)
[2023-10-03] MEDS: Multivitamin TABLET 1 TAB PO (08:50)
--- NOTE | 2023-10-03 11:55 | MHC.CM.ED ---
Patient remains in ER overflow. Court date scheduled for 10/09 at 330pm via Zoom. Continue to monitor for d/c needs.
[2023-10-03 14:00] VITALS: BP 107/53; PULSE 89; RESP 20; TEMP 36.7; O2SAT 96
--- NOTE | 2023-10-03 17:29 | PC.NURSE ---
assumed care of pt at 1555, pt requesting nicotine gum, medicated per MAR. pt preoccupied w wanting to leave unit, requesting to sign paperwork to have her family and visit. pt easily redirectable at this time. walking around unit w steady gait, tech or observer w pt when walking d/t flight risk.
[2023-10-03] MEDS: Magnesium Oxide 400 MG TABLET PO (20:03)
[2023-10-03 22:00] VITALS: BP 120/67; PULSE 68; RESP 18; TEMP 36.6; O2SAT 96
--- NOTE | 2023-10-03 22:46 | PC.NURSE ---
pt medicated per MAR - meds taken whole w water, vss, resting quietly w eyes closed.
--- NOTE | 2023-10-04 03:20 | PC.NURSE ---
Assumed care of pt at 23:30. Pt is AxOx1, Hx of dementia & Korsakoff's syndrome. 1:1 sitter at bedside due to flight risk on unit. Pt ambulates independently to restroom with observer near by. VSS. Pt is resting quietly in bed in lowest position. No complaints of pain. Call noriega within reach of pt. CM involved with care.
[2023-10-04 06:00] VITALS: BP 109/49; PULSE 76; RESP 16; TEMP 36.1; O2SAT 97
--- NOTE | 2023-10-04 08:24 | MHC.EDTECH ---
pt ate 100% of her breakfast and 240cc of fluids
--- NOTE | 2023-10-04 08:50 | PC.NURSE ---
PT IS A/O X 2 NO SOB/JAY NOTED SPEAKS IN FULL SENTENCES. PT IS A FLIGHT RISK HAS A 1:1 SITTER AT BEDSIDE. PT C/O ABD CRAMPING/SPOTTING AND START OF HER PERIOD. NO EDEMA NOTED. WILL CONTINUE TO MONITOR.
[2023-10-04 09:02] VITALS: BP 98/65; PULSE 90; RESP 18; TEMP 36.1; O2SAT 96
[2023-10-04] MEDS: QUEtiapine Fumarate 50 MG TABLET PO ×2 (09:04→21:50)
[2023-10-04] MEDS: Nicotine Polacrilex 2 MG GUM 4 MG BUCCAL ×3 (09:04→20:05)
[2023-10-04] MEDS: Buprenorphine/Naloxone 8/2 mg FILM 1 FILM SUBLINGUAL ×2 (09:04→20:06)
[2023-10-04] MEDS: Multivitamin TABLET 1 TAB PO (09:04)
[2023-10-04] MEDS: Divalproex Sodium 250 MG TABLET.DR PO ×2 (09:04→20:05)
[2023-10-04] MEDS: Acetaminophen 325 MG TABLET 650 MG PO (09:44)
--- NOTE | 2023-10-04 10:47 | MHC.EDTECH ---
Addendum entered by Amada Cuellar 10/04/23 13:00: Patient refused to change into clean hospital garments. Pt did wash her hair in the bathroom. Tech did a complete bed change. Original Note: Pt refused a setup of clean linen in the bathroom. claimed that she knew where all the towels were. Pt washed her hair, but no clean linen was changed. Complete bed change as well.
--- NOTE | 2023-10-04 13:02 | MHC.EDTECH ---
Pt has used the bathroom x3. PT is very confused and repeating the same questions. PT has drank 480cc of hot tea. Pt is now laying down resting.
--- NOTE | 2023-10-04 13:10 | MHC.EDTECH ---
Pt ate 25% of her lunch and 240cc of shirley vishnu
--- NOTE | 2023-10-04 13:25 | PC.NURSE ---
HOSP [facility]) AT BEDSIDE. PT TO BE ADMITTED TO HOSP.
--- NOTE | 2023-10-04 13:44 | MHC.CM.PN ---
PT AWAITING GUARDIANSHIP AND LTC PLACEMENT GUARDIANSHIP HEARING SCHEDULED FOR 10/09/23 @ 1530 HOURS VIA ZOOM
[2023-10-04 14:00] VITALS: BP 117/59; PULSE 98; RESP 18; TEMP 36.8; O2SAT 97
--- NOTE | 2023-10-04 14:00 | PC.NURSE ---
PT GIVEN A HOT PACK IN A PILLOW CASE WHICH WAS APPLIED TO HER BACK 2NDARY TO BACK PAIN/DISC.
[2023-10-04 15:08] VITALS: BP 117/70; PULSE 97; RESP 18; TEMP 36.8; O2SAT 97
--- NOTE | 2023-10-04 15:19 | PM.IMHP ---
History of Present Illness Date of Service: 10/04/23 Attending physician on admission: Jake Lindsey Chief Complaint: Failure to thrive Pt is a 48-year-old female with a PMH significant for opioid use disorder on Suboxone, alcohol use disorder, and Korsakoff's syndrome? who initially presented to the ED on?09/19/2023 looking for her Clement that she had not seen for a few days. Pt apparently had heard he was at this hospital so she called an ambulance to bring her here. She seemed poorly oriented so sister was called who said patient has a significant history of Korsakoff syndrome, and that Clement was a paid caregiver for the patient. Pt was apparently here in the ED with Clement yesterday while he was being admitted to the hospital for lower leg cellulitis. She eloped from the ED sometime during that visit and apparently went back to her home. Apparently patient does not have close relationship with her family and parents have disavowed her. Pt was then placed in physician observation and seen and evaluated by psychiatry who determined she did not have capacity to make medical decisions on her own and was unable to care for herself. She has since been in overflow. Apparently she initially had some issues with agitation, exit seeking, and aggression, but has been medically stable. Today pt reports headache but no other acute medical complaints. Is oriented x2, not to time or situation. Pt mumbles and is difficult to understand. Constantly perseverates about going home and seeing family and fiancee. Pt will be admitted to the hospital while awaiting guardianship and LTC placement. Guardianship hearing is scheduled for 10/09/2023. Review of Systems Review of Systems: Headache Patient has no other acute medical complaints at this time [facility] Social History Unable to assess alcohol history related to: Unknown Smoked in Last 30 Days: Yes Use of substances other than those prescribed or required for medical reasons: Unknown Advance Directives: No Advance Directives Information Provided: Yes Healthcare Proxy: Yes (Sisters are HCP) Guardian: No Patient : No Meds Allergies Allergy/AdvReac Type Severity Reaction Status Date / Time Penicillins [PENICILLINS] Allergy Mild HIVES Verified 09/19/23 16:35 Antihistamines - Alkylamine AdvReac Intermediate feels like Verified 09/19/23 16:35 [ANTIHISTAMINES - ALKYLAMINE] bugs are crawling on her hydroxyzine [From [facility]] AdvReac Intermediate feels like Verified 09/19/23 16:35 bugs are crawling on her GRASS Allergy Mild UNKNOWN Uncoded 06/21/23 11:12 Active Medications: Current Medications Acetaminophen (Acetaminophen 325 Mg Tablet) 650 mg PO Q6H PRN PRN Reason: Pain, Mild (Pain Scale 1-3) Benzonatate (Benzonatate 100 Mg Capsule) 100 mg PO TID PRN PRN Reason: Cough Buprenorphine/Naloxone (Buprenorphine/Naloxone 8/2 Mg Film) 1 film SUBLINGUAL BID [facility] Last Admin: 10/04/23 09:04 Dose: 1 film Divalproex Sodium (Divalproex Sodium 250 Mg Tablet.Dr) 250 mg PO TID [facility] Last Admin: 10/04/23 09:04 Dose: 250 mg Docusate Sodium (Docusate Sodium 100 Mg Capsule) 100 mg PO DAILY PRN PRN Reason: Constipation Magnesium Oxide (Magnesium Oxide 400 Mg Tablet) 400 mg PO BEDTIME [facility] Last Admin: 10/03/23 20:03 Dose: 400 mg Multivitamins/Vitamin C (Multivitamin Tablet) 1 tab PO DAILY [facility] Last Admin: 10/04/23 09:04 Dose: 1 tab Nicotine Polacrilex (Nicotine Polacrilex 2 Mg Gum) 4 mg BUCCAL 8XD PRN PRN Reason: nicotine addiction Last Admin: 10/04/23 12:17 Dose: 4 mg Ondansetron HCl (Ondansetron Hcl 4 Mg/2 Ml Vial) 4 mg IVPUSH Q8H PRN PRN Reason: Nausea and Vomiting Quetiapine Fumarate (Quetiapine Fumarate 50 Mg Tablet) 50 mg PO TID [facility] Last Admin: 10/04/23 09:04 Dose: 50 mg Quetiapine Fumarate (Quetiapine Fumarate 100 Mg Tablet) 100 mg PO Q6H PRN PRN Reason: agitation Last Admin: 10/03/23 05:18 Dose: 100 mg Sodium Chloride (0.9 % Sodium Chloride Flush 3 Ml Syringe) 3 ml IVFLUSH QSHIFT [facility] Home Medications Medication Instructions Recorded Confirmed Last Taken Type quetiapine 100 mg tablet 100 mg PO BEDTIME 09/21/23 09/21/23 Unknown History vitamin B complex-folic acid 0.4 1 tab PO DAILY 09/21/23 09/21/23 Unknown History mg tablet Physical Exam Vital Signs and Narrative: Vital Signs: Last Vital Signs Temp 98.2 F 10/04/23 14:00 Pulse 98 10/04/23 14:00 Resp 18 10/04/23 14:00 BP 117/59 L 10/04/23 14:00 Pulse Ox 97 10/04/23 14:00 O2 Del Method Room Air 10/04/23 14:00 BMI result Body Mass Index 22.7 General: AOx2, not to time or situation. Pt mumbling, difficult to understand. In no acute distress Resp: CTA bilaterally CVS: S1, S2, RRR GI: +BS, NT, no distention Skin: Warm, dry Neuro: Cranial nerves II-XII grossly intact bilaterally. Motor grossly intact bilaterally Extremities: No edema Psych: Flat affect, avoids eye contact. Results Labs 09/19/23 17:25 09/19/23 17:25 Assessment and Plan (1) Alcoholic Korsakoff syndrome: Status: Acute (2) Opioid use disorder: Status: Acute Plan Pt is a 48-year-old female with a PMH significant for opioid use disorder on Suboxone, alcohol use disorder, and Korsakoff's syndrome? who initially presented to the ED on?09/19/2023 looking for her Clement that she had not seen for a few days. Pt apparently had heard he was at this hospital so she called an ambulance to bring her here. Pt will be admitted to the hospital while awaiting guardianship and LTC placement. Guardianship hearing is scheduled for 10/09/2023. Alcohol Korsakoff's syndrome Continue Seroquel, Depakote Opioid use disorder Continue Suboxone Full Code Attending:?Dr. Lindsey DVT Prophylaxis: Pt ambulatory. Pt will require a hospitalization of at least two nights for treatment of?failure to thrive. Pt is unable to take care of herself and require hospitalization while awaiting guardianship and LTC placement. Quality Stroke Does the patient have a stroke diagnosis?: No VTE Prior VTE?: No VTE Risk Level:: Medical - low VTE Device Contraindication: Treatment Not Indicated VTE Drug Contraindication: Treatment Not Indicated
--- NOTE | 2023-10-04 16:39 | MHC.EDTECH ---
pt used the bathroom and is now wandering around the unit talking to herself
--- NOTE | 2023-10-04 17:44 | PC.NURSE ---
Assumed care at 1530. Pt ambulating/pacing unit. Refusing medications at this time, but requests next suboxone dose. Educated pt on medication administration times. Refusing IV placement. Pt was told she would be transferred to the medical floor to which she requests to just be with her family. Pt unable to be redirected, remains focused on her family and their support.
[2023-10-04 19:38] VITALS: BP 107/60; PULSE 93; RESP 18; TEMP 37.1; O2SAT 95
--- NOTE | 2023-10-04 19:52 | MHC.CM.ED ---
Pt being admitted pending guardianship and placement. Room 367. Court hearing on 10/09 at 3:30 via Zoom. CM called and spoke with sister, Risa, who stated she received a call from the assistant attorney general's office about court date. Court appointed perinatal breastfeeding assistant Sam Mixon. Risa had concerns regarding her sister's social security checks and that her boyfriend/caregiver Clement has access to her accounts. Encouraged Risa to speak about this at the hearing. Risa aware that CM on the third floor will be following her sister, but she can always call me for updates in the evenings if needed. Risa is very pleased her sister is being admitted to a room. Understands that it is a social and not a medical admission.
[2023-10-04 20:01] LABS: MANUAL DIFF FLAG NO
[2023-10-04 20:03] LABS: Basophils Absolute Auto 0.1 X10*3/uL (0.0-0.2); Basophils Percent Auto 0.8 % (0-2); Eosinophils Absolute Auto 0.3 X10*3/uL (0.0-0.4); Eosinophils Percent Auto 3.8 % (0-4); Hematocrit 36.1 % (37.0-47.0); Hemoglobin 12.1 g/dl (12.0-16.0); Imm Gran Abs Auto 0.07 X10*3/uL (0.00-0.03); Imm Gran Pct Auto 0.8 % (0.0-0.4); Lymphocytes Absolute Auto 2.3 X10*3/uL (1.2-4.9); Lymphocytes Percent Auto 26.3 % (20-40); Mean Corpuscular HGB Conc 33.5 g/dl (31.0-35.0); Mean Corpuscular Hemoglobin 32.3 pg (27.0-33.0); Mean Corpuscular Volume 96.3 fL (80.0-98.0); Mean Platelet Volume 10.8 fL (9.4-12.3); Monocytes Absolute Auto 0.7 X10*3/uL (0.1-1.2); Monocytes Percent Auto 7.6 % (2-11); Neutrophils Absolute Auto 5.3 x10*3/uL (2.0-8.3); Neutrophils Percent Auto 60.7 % (45-73); Platelet Count 148 X10*3/uL (160-400); Red Blood Count 3.75 X10*6/uL (4.20-5.50); Red Cell Distribution Width 12.3 % (11.0-16.0); White Blood Count 8.7 X10*3/uL (4.8-10.8)
[2023-10-04] MEDS: Magnesium Oxide 400 MG TABLET PO (20:04)
[2023-10-04] MEDS: 0.9 % Sodium Chloride Flush 3 ML SYRINGE IVFLUSH (20:05)
[2023-10-04 20:17] LABS: Alanine Aminotransferase 12 U/L (0-31); Alkaline Phosphatase 76 U/L (39-117); Anion Gap 15 (12-20); Aspartate Amino Transferase 16 U/L (5-31); Bilirubin Total 0.2 mg/dL (0.0-1.0); Blood Urea Nitrogen 11 mg/dL (9-16); Calcium 9.7 mg/dL (8.4-10.2); Carbon Dioxide 26 mmol/L (22-29); Chloride 101 mmol/L (96-108); Creatinine Clr Calc Pharmacy 88.5; Estimated Glomerular Filt Rate > 60; Glucose Random 101 mg/dL (60-115); Magnesium 1.8 mg/dL (1.6-2.6); Potassium 4.1 mmol/L (3.3-5.1); Sodium 138 mmol/L (135-145)
[2023-10-05 07:38] VITALS: BP 90/55; PULSE 67; RESP 16; TEMP 36.1; O2SAT 96
[2023-10-05] MEDS: Divalproex Sodium 250 MG TABLET.DR PO ×3 (08:34→20:58)
[2023-10-05] MEDS: QUEtiapine Fumarate 50 MG TABLET PO ×3 (08:34→20:58)
[2023-10-05] MEDS: Multivitamin TABLET 1 TAB PO (08:34)
[2023-10-05] MEDS: Buprenorphine/Naloxone 8/2 mg FILM 1 FILM SUBLINGUAL ×2 (08:34→20:57)
[2023-10-05] MEDS: Nicotine Polacrilex 2 MG GUM 4 MG BUCCAL ×4 (08:46→20:57)
--- NOTE | 2023-10-05 10:43 | PC.NURSE ---
Pt has used the bathroom multiple times in the last two hours, washing her hands frequently and pacing about the room, and speaking to the sitter about family and her worries about placement.
[2023-10-05] MEDS: Acetaminophen 325 MG TABLET 650 MG PO ×2 (11:28→20:58)
--- NOTE | 2023-10-05 13:01 | P.PNIM_ITS ---
Subjective Subjective Date of Service: 10/05/23 Interval History: No acute issues overnight Review of Systems Denies chest pain Denies shortness of breath Denies nausea vomiting diarrhea Denies fever chills Physical Exam 2 Vital Signs: Vital Signs: Last Vital Signs Temp 97.0 F 10/05/23 07:38 Pulse 67 10/05/23 07:38 Resp 16 10/05/23 07:38 BP 90/55 L 10/05/23 07:38 Pulse Ox 96 10/05/23 07:38 O2 Del Method Room Air 10/05/23 07:38 BMI result Body Mass Index 22.7 Const: Other: Awake alert confused Resp: Other: Clear to auscultation bilaterally no rales rhonchi or wheezes Cardio: Other: No S4; positive S1-S2; no S3 murmurs rubs or gallops GI: Other: Soft nontender nondistended normoactive bowel sounds Extrem: Other: No edema bilaterally Objective Data Active Medications Acetaminophen (Acetaminophen 325 Mg Tablet) 650 mg PO Q6H PRN PRN Reason: Pain, Mild (Pain Scale 1-3) Last Admin: 10/05/23 11:28 Dose: 650 mg Documented By: EVERT Benzonatate (Benzonatate 100 Mg Capsule) 100 mg PO TID PRN PRN Reason: Cough Buprenorphine/Naloxone (Buprenorphine/Naloxone 8/2 Mg Film) 1 film SUBLINGUAL BID [facility] Last Admin: 10/05/23 08:34 Dose: 1 film Documented By: EVERT Divalproex Sodium (Divalproex Sodium 250 Mg Tablet.Dr) 250 mg PO TID [facility] Last Admin: 10/05/23 08:34 Dose: 250 mg Documented By: EVERT Docusate Sodium (Docusate Sodium 100 Mg Capsule) 100 mg PO DAILY PRN PRN Reason: Constipation Magnesium Oxide (Magnesium Oxide 400 Mg Tablet) 400 mg PO BEDTIME [facility] Last Admin: 10/04/23 20:04 Dose: 400 mg Documented By: ELIZBAETH Multivitamins/Vitamin C (Multivitamin Tablet) 1 tab PO DAILY [facility] Last Admin: 10/05/23 08:34 Dose: 1 tab Documented By: EVERT Nicotine Polacrilex (Nicotine Polacrilex 2 Mg Gum) 4 mg BUCCAL 8XD PRN PRN Reason: nicotine addiction Last Admin: 10/05/23 12:44 Dose: 4 mg Documented By: EVERT Ondansetron HCl (Ondansetron Hcl 4 Mg/2 Ml Vial) 4 mg IVPUSH Q8H PRN PRN Reason: Nausea and Vomiting Quetiapine Fumarate (Quetiapine Fumarate 50 Mg Tablet) 50 mg PO TID [facility] Last Admin: 10/05/23 08:34 Dose: 50 mg Documented By: EVERT Quetiapine Fumarate (Quetiapine Fumarate 100 Mg Tablet) 100 mg PO Q6H PRN PRN Reason: agitation Last Admin: 10/03/23 05:18 Dose: 100 mg Documented By: BROAdelita Sodium Chloride (0.9 % Sodium Chloride Flush 3 Ml Syringe) 3 ml IVFLUSH QSHIFT [facility] Last Admin: 10/05/23 08:34 Dose: Not Given Documented By: EVERT Non-Admin Reason: No Access Labs 10/04/23 19:39 10/04/23 19:39 Labs: Laboratory Results - last 24 hr 10/04/23 19:39 MCV 96.3 MCH 32.3 MCHC 33.5 RDW 12.3 Plt Count 148 L MPV 10.8 Immature Gran % (Auto) 0.8 H Neut % (Auto) 60.7 Lymph % (Auto) 26.3 Ramsey % (Auto) 7.6 Eos % (Auto) 3.8 Baso % (Auto) 0.8 Lymph # (Auto) 2.3 Ramsey # (Auto) 0.7 Eos # (Auto) 0.3 Baso # (Auto) 0.1 Abs Immat Gran (auto) 0.07 H Absolute Neuts (auto) 5.3 Absolute Nucleated RBC 0.000 Nucleated RBC % (auto) 0.0 Anion Gap 15 Estim Creat Clear Calc 88.5 Estimated GFR > 60 Random Glucose 101 Calcium 9.7 Magnesium 1.8 Total Bilirubin 0.2 AST 16 ALT 12 Alkaline Phosphatase 76 Total Protein 7.0 Albumin 4.0 Assessment and Plan (1) Alcoholic Korsakoff syndrome: Status: Acute Plan Pt is a 48-year-old female with a PMH significant for opioid use disorder on Suboxone, alcohol use disorder, and Korsakoff's syndrome? who initially presented to the ED on?09/19/2023 looking for her Clement that she had not seen for a few days. Pt apparently had heard he was at this hospital so she called an ambulance to bring her here. Pt will be admitted to the hospital while awaiting guardianship and LTC placement. Guardianship hearing is scheduled for 10/09/2023. Alcohol Korsakoff's syndrome Continue Seroquel, Depakote Opioid use disorder Continue Suboxone Full Code Attending:?Dr. Lindsey DVT Prophylaxis: Pt ambulatory. Pt will require a hospitalization pending guardianship and safe placement Quality Stroke Does the patient have a stroke diagnosis?: No VTE Prior VTE?: No VTE Risk Level:: Medical - low VTE Device Contraindication: Treatment Not Indicated VTE Drug Contraindication: Treatment Not Indicated
--- NOTE | 2023-10-05 15:52 | PC.NURSE ---
Pt refuses IV. She does not need anything intravenously, however, in the event of an emergency, a line will need to be done.
[2023-10-05 16:00] VITALS: BP 135/65; PULSE 68; RESP 17; TEMP 36.2; O2SAT 96
[2023-10-05 19:50] VITALS: BP 135/69; PULSE 85; RESP 20; TEMP 36.7; O2SAT 97
[2023-10-05] MEDS: Magnesium Oxide 400 MG TABLET PO (20:58)
[2023-10-06 04:00] VITALS: BP 100/54; PULSE 70; RESP 18; TEMP 36.2; O2SAT 95
[2023-10-06 07:34] VITALS: BP 95/53; PULSE 74; RESP 16; TEMP 36.2; O2SAT 95
[2023-10-06] MEDS: Acetaminophen 325 MG TABLET 650 MG PO ×3 (08:14→23:56)
[2023-10-06] MEDS: QUEtiapine Fumarate 50 MG TABLET PO ×3 (08:15→20:32)
[2023-10-06] MEDS: Buprenorphine/Naloxone 8/2 mg FILM 1 FILM SUBLINGUAL ×2 (08:15→20:32)
[2023-10-06] MEDS: Divalproex Sodium 250 MG TABLET.DR PO ×3 (08:15→20:32)
[2023-10-06] MEDS: Multivitamin TABLET 1 TAB PO (08:15)
[2023-10-06] MEDS: Nicotine Polacrilex 2 MG GUM 4 MG BUCCAL ×5 (08:16→20:36)
--- NOTE | 2023-10-06 13:32 | HO.PM.IMPN ---
Subjective Subjective Date of Service: 10/06/23 Interval History: No acute issues overnight Review of Systems Denies chest pain Denies shortness of breath Denies nausea vomiting diarrhea Denies fever chills Physical Exam Vital Signs: Vital Signs: Last Vital Signs Temp 97.1 F 10/06/23 07:34 Pulse 74 10/06/23 07:34 Resp 16 10/06/23 07:34 BP 95/53 L 10/06/23 07:34 Pulse Ox 95 10/06/23 07:34 O2 Del Method Room Air 10/06/23 07:34 O2 Flow Rate 3 10/05/23 16:00 BMI result Body Mass Index 22.7 Const: Other: Awake alert confused Resp: Other: Clear to auscultation bilaterally no rales rhonchi or wheezes Cardio: Other: No S4; positive S1-S2; no S3 murmurs rubs or gallops GI: Other: Soft nontender nondistended normoactive bowel sounds Extrem: Other: No edema bilaterally Objective Data Active Medications Acetaminophen (Acetaminophen 325 Mg Tablet) 650 mg PO Q6H PRN PRN Reason: Pain, Mild (Pain Scale 1-3) Last Admin: 10/06/23 08:14 Dose: 650 mg Documented By: CHAS Benzonatate (Benzonatate 100 Mg Capsule) 100 mg PO TID PRN PRN Reason: Cough Buprenorphine/Naloxone (Buprenorphine/Naloxone 8/2 Mg Film) 1 film SUBLINGUAL BID [facility] Last Admin: 10/06/23 08:15 Dose: 1 film Documented By: CHAS Divalproex Sodium (Divalproex Sodium 250 Mg Tablet.Dr) 250 mg PO TID [facility] Last Admin: 10/06/23 08:15 Dose: 250 mg Documented By: CHAS Docusate Sodium (Docusate Sodium 100 Mg Capsule) 100 mg PO DAILY PRN PRN Reason: Constipation Magnesium Oxide (Magnesium Oxide 400 Mg Tablet) 400 mg PO BEDTIME [facility] Last Admin: 10/05/23 20:58 Dose: 400 mg Documented By: REE Multivitamins/Vitamin C (Multivitamin Tablet) 1 tab PO DAILY [facility] Last Admin: 10/06/23 08:15 Dose: 1 tab Documented By: CHAS Nicotine Polacrilex (Nicotine Polacrilex 2 Mg Gum) 4 mg BUCCAL 8XD PRN PRN Reason: nicotine addiction Last Admin: 10/06/23 10:18 Dose: 4 mg Documented By: CHAS Ondansetron HCl (Ondansetron Hcl 4 Mg/2 Ml Vial) 4 mg IVPUSH Q8H PRN PRN Reason: Nausea and Vomiting Quetiapine Fumarate (Quetiapine Fumarate 50 Mg Tablet) 50 mg PO TID [facility] Last Admin: 10/06/23 08:15 Dose: 50 mg Documented By: CHAS Quetiapine Fumarate (Quetiapine Fumarate 100 Mg Tablet) 100 mg PO Q6H PRN PRN Reason: agitation Last Admin: 10/03/23 05:18 Dose: 100 mg Documented By: BROAdelita Sodium Chloride (0.9 % Sodium Chloride Flush 3 Ml Syringe) 3 ml IVFLUSH QSHIFT [facility] Last Admin: 10/06/23 08:02 Dose: Not Given Documented By: CHAS Non-Admin Reason: No Access Labs 10/04/23 19:39 10/04/23 19:39 Assessment and Plan (1) Alcoholic Korsakoff syndrome: Status: Acute Plan Pt is a 48-year-old female with a PMH significant for opioid use disorder on Suboxone, alcohol use disorder, and Korsakoff's syndrome? who initially presented to the ED on?09/19/2023 looking for her Clement that she had not seen for a few days. Pt apparently had heard he was at this hospital so she called an ambulance to bring her here. Pt will be admitted to the hospital while awaiting guardianship and LTC placement. Guardianship hearing is scheduled for 10/09/2023. Alcohol Korsakoff's syndrome Continue Seroquel, Depakote Opioid use disorder Continue Suboxone Full Code Attending:?Dr. Lindsey DVT Prophylaxis: Pt ambulatory. Pt will require a hospitalization pending guardianship and safe placement Quality Stroke Does the patient have a stroke diagnosis?: No VTE Prior VTE?: No VTE Risk Level:: Medical - low VTE Device Contraindication: Treatment Not Indicated VTE Drug Contraindication: Treatment Not Indicated
--- NOTE | 2023-10-06 15:54 | MHC.CM.PN ---
PT MOVED UP FROM THE ED AWAITING GUARDIANSHIP AND LTC PLACEMENT DUE TO DEMENTIA
[2023-10-06 16:00] VITALS: BP 113/61; PULSE 97; RESP 16; TEMP 37.3; O2SAT 96
[2023-10-06 20:00] VITALS: BP 110/59; PULSE 85; RESP 80; TEMP 36.3; O2SAT 96
[2023-10-06] MEDS: Magnesium Oxide 400 MG TABLET PO (20:32)
[2023-10-07] MEDS: QUEtiapine Fumarate 100 MG TABLET PO (00:10)
[2023-10-07] MEDS: Nicotine Polacrilex 2 MG GUM 4 MG BUCCAL ×5 (00:10→17:22)
[2023-10-07 03:39] VITALS: BP 100/56; PULSE 73; RESP 16; TEMP 36.2; O2SAT 97
[2023-10-07 07:03] VITALS: BP 130/64; PULSE 76; RESP 18; TEMP 36.2; O2SAT 99
[2023-10-07] MEDS: Multivitamin TABLET 1 TAB PO (08:34)
[2023-10-07] MEDS: Buprenorphine/Naloxone 8/2 mg FILM 1 FILM SUBLINGUAL ×2 (08:34→20:33)
[2023-10-07] MEDS: QUEtiapine Fumarate 50 MG TABLET PO ×3 (08:34→20:33)
[2023-10-07] MEDS: Divalproex Sodium 250 MG TABLET.DR PO ×3 (08:34→20:33)
[2023-10-07] MEDS: Acetaminophen 325 MG TABLET 650 MG PO ×2 (09:42→17:22)
--- NOTE | 2023-10-07 10:39 | MHC.CM.PN ---
EMR reviewed. Patient awaiting guardianship and LTC payor/placement. CM will continue to follow.
--- NOTE | 2023-10-07 13:01 | HO.PM.IMPN ---
Subjective Subjective Date of Service: 10/07/23 Interval History: no complaints Review of Systems Review of Systems: Yes all other systems are reviewed and are negative Physical Exam Vital Signs: Vital Signs: Last Vital Signs Temp 97.2 F 10/07/23 07:03 Pulse 76 10/07/23 07:03 Resp 18 10/07/23 07:03 BP 130/64 10/07/23 07:03 Pulse Ox 99 10/07/23 07:03 O2 Del Method Room Air 10/07/23 07:03 O2 Flow Rate 3 10/05/23 16:00 BMI result Body Mass Index 22.7 Gen: in no acute distress HEENT: sclera anicteric, moist mucus membranes Neck: supple Lungs: clear to auscultation bilaterally Heart: regular rate and rhythm, no murmurs Abd: soft, non-tender, non-distended Ext: no edema Skin: warm/well-perfused Neuro: alert, no focal weakness Psych: impaired insight Objective Data Active Medications Acetaminophen (Acetaminophen 325 Mg Tablet) 650 mg PO Q6H PRN PRN Reason: Pain, Mild (Pain Scale 1-3) Last Admin: 10/07/23 09:42 Dose: 650 mg Documented By: ANNA Benzonatate (Benzonatate 100 Mg Capsule) 100 mg PO TID PRN PRN Reason: Cough Buprenorphine/Naloxone (Buprenorphine/Naloxone 8/2 Mg Film) 1 film SUBLINGUAL BID [facility] Last Admin: 10/07/23 08:34 Dose: 1 film Documented By: ANNA Divalproex Sodium (Divalproex Sodium 250 Mg Tablet.) 250 mg PO TID [facility] Last Admin: 10/07/23 08:34 Dose: 250 mg Documented By: ANNA Docusate Sodium (Docusate Sodium 100 Mg Capsule) 100 mg PO DAILY PRN PRN Reason: Constipation Magnesium Oxide (Magnesium Oxide 400 Mg Tablet) 400 mg PO BEDTIME [facility] Last Admin: 10/06/23 20:32 Dose: 400 mg Documented By: JACKI Multivitamins/Vitamin C (Multivitamin Tablet) 1 tab PO DAILY [facility] Last Admin: 10/07/23 08:34 Dose: 1 tab Documented By: ANNA Nicotine Polacrilex (Nicotine Polacrilex 2 Mg Gum) 4 mg BUCCAL 8XD PRN PRN Reason: nicotine addiction Last Admin: 10/07/23 11:04 Dose: 4 mg Documented By: ANNA Ondansetron HCl (Ondansetron Hcl 4 Mg/2 Ml Vial) 4 mg IVPUSH Q8H PRN PRN Reason: Nausea and Vomiting Quetiapine Fumarate (Quetiapine Fumarate 50 Mg Tablet) 50 mg PO TID [facility] Last Admin: 10/07/23 08:34 Dose: 50 mg Documented By: ANNA Quetiapine Fumarate (Quetiapine Fumarate 100 Mg Tablet) 100 mg PO Q6H PRN PRN Reason: agitation Last Admin: 10/07/23 00:10 Dose: 100 mg Documented By: JACKI Sodium Chloride (0.9 % Sodium Chloride Flush 3 Ml Syringe) 3 ml IVFLUSH QSHIFT [facility] Last Admin: 10/07/23 08:36 Dose: Not Given Documented By: ANNA Non-Admin Reason: No Access Labs 10/04/23 19:39 10/04/23 19:39 Assessment and Plan (1) Alcoholic Korsakoff syndrome: Status: Acute Plan d4 48yo F with OUD on Suboxone, AUD, Korsakoff syndrome initially presented to ED 09/19/23 with confusion, admitted for placement pending guardianship hearing 10/09/23 Korsakoff syndrome - continue quetiapine, valproate OUD - Suboxone VTE ppx - SCDs dispo - eventual LTC Total time managing care of this patient today: 25 minutes. Quality Stroke Does the patient have a stroke diagnosis?: No VTE Prior VTE?: No VTE Risk Level:: Medical - low VTE Device Contraindication: Treatment Not Indicated VTE Drug Contraindication: Treatment Not Indicated
[2023-10-07 14:57] VITALS: BP 130/76; PULSE 104; RESP 18; TEMP 36.4; O2SAT 97
[2023-10-07 19:20] VITALS: BP 119/76; PULSE 90; RESP 18; TEMP 36.5; O2SAT 97
[2023-10-07] MEDS: Magnesium Oxide 400 MG TABLET PO (20:33)
[2023-10-08 03:17] VITALS: BP 101/60; PULSE 67; RESP 16; TEMP 36.3; O2SAT 96
[2023-10-08 07:06] VITALS: BP 104/62; PULSE 75; RESP 17; TEMP 36.5; O2SAT 98
[2023-10-08] MEDS: Buprenorphine/Naloxone 8/2 mg FILM 1 FILM SUBLINGUAL ×2 (08:39→20:04)
[2023-10-08] MEDS: Divalproex Sodium 250 MG TABLET.DR PO ×3 (08:39→20:04)
[2023-10-08] MEDS: QUEtiapine Fumarate 50 MG TABLET PO ×3 (08:39→20:04)
[2023-10-08] MEDS: Multivitamin TABLET 1 TAB PO (08:41)
[2023-10-08] MEDS: Nicotine Polacrilex 2 MG GUM 4 MG BUCCAL ×5 (08:43→20:04)
[2023-10-08] MEDS: Acetaminophen 325 MG TABLET 650 MG PO (08:43)
--- NOTE | 2023-10-08 11:48 | HO.PM.IMPN ---
Subjective Subjective Date of Service: 10/08/23 Interval History: no complaints but disoriented Review of Systems Review of Systems: Yes all other systems are reviewed and are negative Physical Exam Vital Signs: Vital Signs: Last Vital Signs Temp 97.7 F 10/08/23 07:06 Pulse 75 10/08/23 07:06 Resp 17 10/08/23 07:06 BP 104/62 10/08/23 07:06 Pulse Ox 98 10/08/23 07:06 O2 Del Method Room Air 10/08/23 07:06 O2 Flow Rate 3 10/05/23 16:00 BMI result Body Mass Index 22.7 Gen: in no acute distress Lungs: normal resp effort Neuro: alert, no focal weakness Psych: impaired insight Objective Data Active Medications Acetaminophen (Acetaminophen 325 Mg Tablet) 650 mg PO Q6H PRN PRN Reason: Pain, Mild (Pain Scale 1-3) Last Admin: 10/08/23 08:43 Dose: 650 mg Documented By: ALEA Benzonatate (Benzonatate 100 Mg Capsule) 100 mg PO TID PRN PRN Reason: Cough Buprenorphine/Naloxone (Buprenorphine/Naloxone 8/2 Mg Film) 1 film SUBLINGUAL BID [facility] Last Admin: 10/08/23 08:39 Dose: 1 film Documented By: ALEA Divalproex Sodium (Divalproex Sodium 250 Mg Tablet.Dr) 250 mg PO TID [facility] Last Admin: 10/08/23 08:39 Dose: 250 mg Documented By: ALEA Docusate Sodium (Docusate Sodium 100 Mg Capsule) 100 mg PO DAILY PRN PRN Reason: Constipation Magnesium Oxide (Magnesium Oxide 400 Mg Tablet) 400 mg PO BEDTIME [facility] Last Admin: 10/07/23 20:33 Dose: 400 mg Documented By: JACKI Multivitamins/Vitamin C (Multivitamin Tablet) 1 tab PO DAILY [facility] Last Admin: 10/08/23 08:41 Dose: 1 tab Documented By: ALEA Nicotine Polacrilex (Nicotine Polacrilex 2 Mg Gum) 4 mg BUCCAL 8XD PRN PRN Reason: nicotine addiction Last Admin: 10/08/23 11:44 Dose: 4 mg Documented By: ALEA Ondansetron HCl (Ondansetron Hcl 4 Mg/2 Ml Vial) 4 mg IVPUSH Q8H PRN PRN Reason: Nausea and Vomiting Quetiapine Fumarate (Quetiapine Fumarate 50 Mg Tablet) 50 mg PO TID [facility] Last Admin: 10/08/23 08:39 Dose: 50 mg Documented By: DABTrever Quetiapine Fumarate (Quetiapine Fumarate 100 Mg Tablet) 100 mg PO Q6H PRN PRN Reason: agitation Last Admin: 10/07/23 00:10 Dose: 100 mg Documented By: JACKI Sodium Chloride (0.9 % Sodium Chloride Flush 3 Ml Syringe) 3 ml IVFLUSH QSHIFT [facility] Last Admin: 10/08/23 06:56 Dose: Not Given Documented By: ALEA Non-Admin Reason: No Access Labs 10/04/23 19:39 10/04/23 19:39 Assessment and Plan (1) Alcoholic Korsakoff syndrome: Status: Acute Plan d5 48yo F with OUD on Suboxone, AUD, Korsakoff syndrome initially presented to ED 09/19/23 with confusion, admitted for placement pending guardianship hearing 10/09/23 Korsakoff syndrome - continue quetiapine, valproate OUD - Suboxone VTE ppx - SCDs dispo - eventual LTC Total time managing care of this patient today: 25 minutes. Quality Stroke Does the patient have a stroke diagnosis?: No VTE Prior VTE?: No VTE Risk Level:: Medical - low VTE Device Contraindication: Treatment Not Indicated VTE Drug Contraindication: Treatment Not Indicated
[2023-10-08 15:38] VITALS: BP 130/74; PULSE 88; RESP 18; TEMP 36.3; O2SAT 96
[2023-10-08 20:03] VITALS: BP 113/78; PULSE 90; RESP 18; TEMP 36.2; O2SAT 97
[2023-10-08] MEDS: Magnesium Oxide 400 MG TABLET PO (20:04)
[2023-10-09 03:08] VITALS: BP 95/61; PULSE 60; RESP 16; TEMP 36.1; O2SAT 95
[2023-10-09 07:31] VITALS: BP 90/50; PULSE 75; RESP 16; TEMP 36.7
[2023-10-09] MEDS: Divalproex Sodium 250 MG TABLET.DR PO ×3 (08:31→21:02)
[2023-10-09] MEDS: Multivitamin TABLET 1 TAB PO (08:31)
[2023-10-09] MEDS: QUEtiapine Fumarate 50 MG TABLET PO ×3 (08:31→21:02)
[2023-10-09] MEDS: Buprenorphine/Naloxone 8/2 mg FILM 1 FILM SUBLINGUAL ×2 (08:31→21:02)
[2023-10-09] MEDS: Acetaminophen 325 MG TABLET 650 MG PO ×2 (08:34→19:30)
--- NOTE | 2023-10-09 09:47 | P.PNIM_ITS ---
Subjective Subjective Date of Service: 10/09/23 Interval History: c/o pain/redness around R earlobe- earring removed no other complaints Review of Systems Review of Systems: Yes all other systems are reviewed and are negative Physical Exam 2 Vital Signs: Vital Signs: Last Vital Signs Temp 98.0 F 10/09/23 07:31 Pulse 75 10/09/23 07:31 Resp 16 10/09/23 07:31 BP 90/50 L 10/09/23 07:31 Pulse Ox 95 10/09/23 03:08 O2 Del Method Room Air 10/09/23 03:08 O2 Flow Rate 3 10/05/23 16:00 BMI result Body Mass Index 22.7 Gen: in no acute distress HEENT: R earlobe slightly erythematous Lungs: normal resp effort Neuro: alert, no focal weakness Psych: impaired insight Objective Data Active Medications Acetaminophen (Acetaminophen 325 Mg Tablet) 650 mg PO Q6H PRN PRN Reason: Pain, Mild (Pain Scale 1-3) Last Admin: 10/09/23 08:34 Dose: 650 mg Documented By: ALEA Benzonatate (Benzonatate 100 Mg Capsule) 100 mg PO TID PRN PRN Reason: Cough Buprenorphine/Naloxone (Buprenorphine/Naloxone 8/2 Mg Film) 1 film SUBLINGUAL BID [facility] Last Admin: 10/09/23 08:31 Dose: 1 film Documented By: ALEA Divalproex Sodium (Divalproex Sodium 250 Mg Tablet.Dr) 250 mg PO TID [facility] Last Admin: 10/09/23 08:31 Dose: 250 mg Documented By: ALEA Docusate Sodium (Docusate Sodium 100 Mg Capsule) 100 mg PO DAILY PRN PRN Reason: Constipation Magnesium Oxide (Magnesium Oxide 400 Mg Tablet) 400 mg PO BEDTIME [facility] Last Admin: 10/08/23 20:04 Dose: 400 mg Documented By: MAICO Multivitamins/Vitamin C (Multivitamin Tablet) 1 tab PO DAILY [facility] Last Admin: 10/09/23 08:31 Dose: 1 tab Documented By: ALEA Nicotine Polacrilex (Nicotine Polacrilex 2 Mg Gum) 4 mg BUCCAL 8XD PRN PRN Reason: nicotine addiction Last Admin: 10/08/23 20:04 Dose: 4 mg Documented By: MAICO Ondansetron HCl (Ondansetron Hcl 4 Mg/2 Ml Vial) 4 mg IVPUSH Q8H PRN PRN Reason: Nausea and Vomiting Quetiapine Fumarate (Quetiapine Fumarate 50 Mg Tablet) 50 mg PO TID [facility] Last Admin: 10/09/23 08:31 Dose: 50 mg Documented By: DABA Quetiapine Fumarate (Quetiapine Fumarate 100 Mg Tablet) 100 mg PO Q6H PRN PRN Reason: agitation Last Admin: 10/07/23 00:10 Dose: 100 mg Documented By: JACKI Sodium Chloride (0.9 % Sodium Chloride Flush 3 Ml Syringe) 3 ml IVFLUSH QSHIFT [facility] Last Admin: 10/09/23 06:26 Dose: Not Given Documented By: ALEA Non-Admin Reason: No Access Labs 10/04/23 19:39 10/04/23 19:39 Assessment and Plan (1) Alcoholic Korsakoff syndrome: Status: Acute Plan d6 48yo F with OUD on Suboxone, AUD, Korsakoff syndrome initially presented to ED 09/19/23 with confusion, admitted for placement pending guardianship hearing 10/09/23 Korsakoff syndrome - continue quetiapine, valproate earlobe infection - trple antibiotic ointment OUD - Suboxone VTE ppx - SCDs dispo - eventual LTC In my clinical judgment, the patient requires continued inpatient hospitalization for the following reasons: guardianship then placement Total time managing care of this patient today: 25 minutes. Quality Stroke Does the patient have a stroke diagnosis?: No VTE Prior VTE?: No VTE Risk Level:: Medical - low VTE Device Contraindication: Treatment Not Indicated VTE Drug Contraindication: Treatment Not Indicated
--- NOTE | 2023-10-09 10:54 | MHC.CM.PN ---
EMR reviewed. Patient continues to await guardianship. Proposed co-guardians are patient's sisters. Hearing is scheduled for today at 3:30pm via zoom.
[2023-10-09] MEDS: Nicotine Polacrilex 2 MG GUM 4 MG BUCCAL ×4 (11:49→21:02)
[2023-10-09] MEDS: NeoMY/Polymyx/Bacit/Ointment 14 GM Tube TOPICAL ×2 (11:49→21:02)
--- NOTE | 2023-10-09 13:18 | P.CDIM_ITS ---
PROVIDER RESPONSE TEXT: To clarify, the appropriate diagnosis supported by the clinical indicators: Other (explain): Korskoff syndrome, NOS QUERY TEXT: PHYSICIAN'S DOCUMENTATION REQUEST Date of Query: 10/09/2023 09:17 AM EST Patient Name: Bud Carlos Admit Date: 10/04/2023 Dear Miguel Medina, A review of the medical record indicates additional documentation may be needed. Please review below and update the documentation accordingly. Clinical Indicators: Patient unable to make medical decisions, poorly oriented, unable to care for herself, agitated, aggr essive. Confused, arrived looking for her but Clement is her caregiver. Pt keeps trying to elope, trying to get doors open and leave, biting staff who is trying to redirect her. IV Haldol and Benadryl. Behavior strain order has been placed. Admitted to the hospital while awaiting guardianship and LTC. 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 Please use your independent medical judgment in providing your response. THIS QUERY IS PART OF THE PERMANENT MEDICAL RECORD
[2023-10-09 16:00] VITALS: BP 121/71; PULSE 100; RESP 18; TEMP 36.4; O2SAT 97
[2023-10-09 19:26] VITALS: BP 127/76; PULSE 91; RESP 18; TEMP 36.4; O2SAT 99
[2023-10-09] MEDS: Magnesium Oxide 400 MG TABLET PO (21:02)
[2023-10-09] MEDS: QUEtiapine Fumarate 100 MG TABLET PO (22:32)
[2023-10-10] MEDS: Acetaminophen 325 MG TABLET 650 MG PO ×3 (01:45→14:45)
[2023-10-10 03:26] VITALS: BP 96/59; PULSE 67; RESP 16; TEMP 36; O2SAT 96
[2023-10-10 07:50] VITALS: BP 106/54; PULSE 72; RESP 18; TEMP 36; O2SAT 97
[2023-10-10] MEDS: Divalproex Sodium 250 MG TABLET.DR PO ×3 (08:49→21:13)
[2023-10-10] MEDS: Nicotine Polacrilex 2 MG GUM 4 MG BUCCAL ×2 (08:49→14:45)
[2023-10-10] MEDS: QUEtiapine Fumarate 50 MG TABLET PO ×3 (08:49→21:13)
[2023-10-10] MEDS: Buprenorphine/Naloxone 8/2 mg FILM 1 FILM SUBLINGUAL ×2 (08:50→21:13)
[2023-10-10] MEDS: Multivitamin TABLET 1 TAB PO (08:51)
[2023-10-10] MEDS: NeoMY/Polymyx/Bacit/Ointment 14 GM Tube TOPICAL ×2 (08:54→21:13)
--- NOTE | 2023-10-10 11:26 | P.PNIM_ITS ---
Subjective Subjective Date of Service: 10/10/23 Interval History: no new events no complaints Review of Systems Review of Systems: Yes all other systems are reviewed and are negative Physical Exam 2 Vital Signs: Vital Signs: Last Vital Signs Temp 96.8 F 10/10/23 07:50 Pulse 72 10/10/23 07:50 Resp 18 10/10/23 07:50 BP 106/54 L 10/10/23 07:50 Pulse Ox 97 10/10/23 07:50 O2 Del Method Room Air 10/10/23 07:50 O2 Flow Rate 3 10/05/23 16:00 BMI result Body Mass Index 22.7 Gen: in no acute distress Lungs: normal resp effort Neuro: alert, no focal weakness Psych: impaired insight Objective Data Active Medications Acetaminophen (Acetaminophen 325 Mg Tablet) 650 mg PO Q6H PRN PRN Reason: Pain, Mild (Pain Scale 1-3) Last Admin: 10/10/23 08:49 Dose: 650 mg Documented By: ALEA Benzonatate (Benzonatate 100 Mg Capsule) 100 mg PO TID PRN PRN Reason: Cough Buprenorphine/Naloxone (Buprenorphine/Naloxone 8/2 Mg Film) 1 film SUBLINGUAL BID [facility] Last Admin: 10/10/23 08:50 Dose: 1 film Documented By: ALEA Divalproex Sodium (Divalproex Sodium 250 Mg Tablet.) 250 mg PO TID [facility] Last Admin: 10/10/23 08:49 Dose: 250 mg Documented By: ALEA Docusate Sodium (Docusate Sodium 100 Mg Capsule) 100 mg PO DAILY PRN PRN Reason: Constipation Magnesium Oxide (Magnesium Oxide 400 Mg Tablet) 400 mg PO BEDTIME [facility] Last Admin: 10/09/23 21:02 Dose: 400 mg Documented By: LUCIO Multivitamins/Vitamin C (Multivitamin Tablet) 1 tab PO DAILY [facility] Last Admin: 10/10/23 08:51 Dose: 1 tab Documented By: ALEA Neomycin/Polymyxin/Bacitracin (Neomy/Polymyx/Bacit/Ointment 14 Gm Tube) 1 gm TOPICAL BID [facility]; Protocol Last Admin: 10/10/23 08:54 Dose: 1 gm Documented By: ALEA Nicotine Polacrilex (Nicotine Polacrilex 2 Mg Gum) 4 mg BUCCAL 8XD PRN PRN Reason: nicotine addiction Last Admin: 10/10/23 08:49 Dose: 4 mg Documented By: ALEA Ondansetron HCl (Ondansetron Hcl 4 Mg/2 Ml Vial) 4 mg IVPUSH Q8H PRN PRN Reason: Nausea and Vomiting Quetiapine Fumarate (Quetiapine Fumarate 50 Mg Tablet) 50 mg PO TID [facility] Last Admin: 10/10/23 08:49 Dose: 50 mg Documented By: ALEA Quetiapine Fumarate (Quetiapine Fumarate 100 Mg Tablet) 100 mg PO Q6H PRN PRN Reason: agitation Last Admin: 10/09/23 22:32 Dose: 100 mg Documented By: ZACHQC Sodium Chloride (0.9 % Sodium Chloride Flush 3 Ml Syringe) 3 ml IVFLUSH QSHIFT [facility] Last Admin: 10/10/23 06:23 Dose: Not Given Documented By: ALEA Non-Admin Reason: No Access Labs 10/04/23 19:39 10/04/23 19:39 Assessment and Plan (1) Alcoholic Korsakoff syndrome: Status: Acute Plan d7 48yo F with OUD on Suboxone, AUD, Korsakoff syndrome initially presented to ED 09/19/23 with confusion, admitted for placement pending guardianship hearing 10/09/23 Korsakoff syndrome - continue quetiapine, valproate earlobe infection - trple antibiotic ointment OUD - Suboxone VTE ppx - SCDs dispo - eventual LTC In my clinical judgment, the patient requires continued inpatient hospitalization for the following reasons: guardianship then placement Total time managing care of this patient today: 25 minutes. Quality Stroke Does the patient have a stroke diagnosis?: No VTE Prior VTE?: No VTE Risk Level:: Medical - low VTE Device Contraindication: Treatment Not Indicated VTE Drug Contraindication: Treatment Not Indicated
[2023-10-10 15:23] VITALS: BP 110/56; PULSE 87; RESP 16; TEMP 36.2; O2SAT 96
[2023-10-10] MEDS: QUEtiapine Fumarate 100 MG TABLET PO (16:44)
[2023-10-10] MEDS: Magnesium Oxide 400 MG TABLET PO (21:13)
[2023-10-11 03:41] VITALS: BP 98/55; PULSE 68; RESP 16; TEMP 36.3; O2SAT 95
[2023-10-11 07:23] VITALS: BP 97/54; PULSE 77; RESP 18; TEMP 36.6; O2SAT 95
[2023-10-11] MEDS: Multivitamin TABLET 1 TAB PO (09:14)
[2023-10-11] MEDS: QUEtiapine Fumarate 50 MG TABLET PO ×3 (09:14→21:07)
[2023-10-11] MEDS: NeoMY/Polymyx/Bacit/Ointment 14 GM Tube TOPICAL ×2 (09:15→21:18)
[2023-10-11] MEDS: Buprenorphine/Naloxone 8/2 mg FILM 1 FILM SUBLINGUAL ×2 (09:15→21:08)
[2023-10-11] MEDS: Divalproex Sodium 250 MG TABLET.DR PO ×3 (09:19→21:08)
[2023-10-11] MEDS: Nicotine Polacrilex 2 MG GUM 4 MG BUCCAL ×3 (09:32→19:11)
[2023-10-11] MEDS: Acetaminophen 325 MG TABLET 650 MG PO (10:38)
--- NOTE | 2023-10-11 11:23 | MHC.CM.PN ---
EMR reviewed. Awaiting guardianship decree. Will need LTC placement. CM will continue to follow.
--- NOTE | 2023-10-11 12:12 | P.PNIM_ITS ---
Subjective Subjective Date of Service: 10/11/23 Interval History: no new complaints Review of Systems Review of Systems: Yes all other systems are reviewed and are negative Physical Exam 2 Vital Signs: Vital Signs: Last Vital Signs Temp 97.8 F 10/11/23 07:23 Pulse 77 10/11/23 07:23 Resp 18 10/11/23 07:23 BP 97/54 L 10/11/23 07:23 Pulse Ox 95 10/11/23 07:23 O2 Del Method Room Air 10/11/23 07:23 O2 Flow Rate 3 10/05/23 16:00 BMI result Body Mass Index 22.7 Gen: in no acute distress Lungs: normal resp effort Neuro: alert, no focal weakness Psych: impaired insight Objective Data Active Medications Acetaminophen (Acetaminophen 325 Mg Tablet) 650 mg PO Q6H PRN PRN Reason: Pain, Mild (Pain Scale 1-3) Last Admin: 10/11/23 10:38 Dose: 650 mg Documented By: EWA Benzonatate (Benzonatate 100 Mg Capsule) 100 mg PO TID PRN PRN Reason: Cough Buprenorphine/Naloxone (Buprenorphine/Naloxone 8/2 Mg Film) 1 film SUBLINGUAL BID [facility] Last Admin: 10/11/23 09:15 Dose: 1 film Documented By: PETER Divalproex Sodium (Divalproex Sodium 250 Mg Tablet.) 250 mg PO TID [facility] Last Admin: 10/11/23 09:19 Dose: 250 mg Documented By: PETER Docusate Sodium (Docusate Sodium 100 Mg Capsule) 100 mg PO DAILY PRN PRN Reason: Constipation Magnesium Oxide (Magnesium Oxide 400 Mg Tablet) 400 mg PO BEDTIME [facility] Last Admin: 10/10/23 21:13 Dose: 400 mg Documented By: LUCIO Multivitamins/Vitamin C (Multivitamin Tablet) 1 tab PO DAILY [facility] Last Admin: 10/11/23 09:14 Dose: 1 tab Documented By: PETER Neomycin/Polymyxin/Bacitracin (Neomy/Polymyx/Bacit/Ointment 14 Gm Tube) 1 gm TOPICAL BID [facility]; Protocol Last Admin: 10/11/23 09:15 Dose: 1 gm Documented By: PETER Comments: right earlobe Nicotine Polacrilex (Nicotine Polacrilex 2 Mg Gum) 4 mg BUCCAL 8XD PRN PRN Reason: nicotine addiction Last Admin: 10/11/23 09:32 Dose: 4 mg Documented By: PETER Comments: cravings Ondansetron HCl (Ondansetron Hcl 4 Mg/2 Ml Vial) 4 mg IVPUSH Q8H PRN PRN Reason: Nausea and Vomiting Quetiapine Fumarate (Quetiapine Fumarate 50 Mg Tablet) 50 mg PO TID [facility] Last Admin: 10/11/23 09:14 Dose: 50 mg Documented By: PETER Quetiapine Fumarate (Quetiapine Fumarate 100 Mg Tablet) 100 mg PO Q6H PRN PRN Reason: agitation Last Admin: 10/10/23 16:44 Dose: 100 mg Documented By: ALEA Sodium Chloride (0.9 % Sodium Chloride Flush 3 Ml Syringe) 3 ml IVFLUSH QSHIFT [facility] Last Admin: 10/11/23 07:14 Dose: Not Given Documented By: EWA Non-Admin Reason: No Access Labs 10/04/23 19:39 10/04/23 19:39 Assessment and Plan (1) Alcoholic Korsakoff syndrome: Status: Acute Plan d8 48yo F with OUD on Suboxone, AUD, Korsakoff syndrome initially presented to ED 09/19/23 with confusion, admitted for placement pending guardianship hearing 10/09/23 Korsakoff syndrome - continue quetiapine, valproate earlobe infection - triple antibiotic ointment OUD - Suboxone VTE ppx - SCDs dispo - eventual LTC In my clinical judgment, the patient requires continued inpatient hospitalization for the following reasons: guardianship then placement Total time managing care of this patient today: 25 minutes. Quality Stroke Does the patient have a stroke diagnosis?: No VTE Prior VTE?: No VTE Risk Level:: Medical - low VTE Device Contraindication: Treatment Not Indicated VTE Drug Contraindication: Treatment Not Indicated
[2023-10-11 15:15] VITALS: BP 103/56; PULSE 74; RESP 18; TEMP 36.1; O2SAT 95
[2023-10-11 20:00] VITALS: BP 112/56; PULSE 85; RESP 18; TEMP 36.3; O2SAT 96
[2023-10-11] MEDS: Magnesium Oxide 400 MG TABLET PO (21:08)
[2023-10-12 03:59] VITALS: BP 92/50; PULSE 70; RESP 19; TEMP 37.1; O2SAT 95
[2023-10-12 07:53] VITALS: BP 91/50; PULSE 66; RESP 16; TEMP 36.6; O2SAT 95
[2023-10-12] MEDS: QUEtiapine Fumarate 50 MG TABLET PO ×3 (08:45→20:21)
[2023-10-12] MEDS: Buprenorphine/Naloxone 8/2 mg FILM 1 FILM SUBLINGUAL ×2 (08:45→20:21)
[2023-10-12] MEDS: Divalproex Sodium 250 MG TABLET.DR PO ×3 (08:45→20:21)
[2023-10-12] MEDS: NeoMY/Polymyx/Bacit/Ointment 14 GM Tube TOPICAL ×2 (08:45→20:21)
[2023-10-12] MEDS: Multivitamin TABLET 1 TAB PO (08:45)
[2023-10-12] MEDS: Nicotine Polacrilex 2 MG GUM 4 MG BUCCAL ×2 (08:49→15:27)
--- NOTE | 2023-10-12 12:13 | HO.PM.IMPN ---
Subjective Subjective Date of Service: 10/12/23 Interval History: Resting comfortably being followed for placement Offers no acute complaints tolerating ,t no nausea, no vomiting, no abdominal pain, has been ambulating, denies lightheadedness or dizziness. Review of Systems All other system reviewed and negative. Physical Exam Vital Signs: Vital Signs: Last Vital Signs Temp 97.8 F 10/12/23 07:53 Pulse 66 10/12/23 07:53 Resp 16 10/12/23 07:53 BP 91/50 L 10/12/23 07:53 Pulse Ox 95 10/12/23 07:53 O2 Del Method Room Air 10/12/23 07:53 O2 Flow Rate 3 10/05/23 16:00 BMI result Body Mass Index 22.7 Const: Other: General resting comfortably in no acute distress. Neck supple no JVD. CVS regular rate rhythm, Respiratory lungs clear to auscultation, no respiratory distress, no wheeze, no rhonchi. Gastrointestinal abdomen soft, non tender, bowel sounds audible Extremities no edema. Neuro speech clear, no focal weakness. Poor insight Objective Data Active Medications Acetaminophen (Acetaminophen 325 Mg Tablet) 650 mg PO Q6H PRN PRN Reason: Pain, Mild (Pain Scale 1-3) Last Admin: 10/11/23 10:38 Dose: 650 mg Documented By: EWA Benzonatate (Benzonatate 100 Mg Capsule) 100 mg PO TID PRN PRN Reason: Cough Buprenorphine/Naloxone (Buprenorphine/Naloxone 8/2 Mg Film) 1 film SUBLINGUAL BID [facility] Last Admin: 10/12/23 08:45 Dose: 1 film Documented By: SHERRON Divalproex Sodium (Divalproex Sodium 250 Mg Tablet.) 250 mg PO TID [facility] Last Admin: 10/12/23 08:45 Dose: 250 mg Documented By: SHERRON Docusate Sodium (Docusate Sodium 100 Mg Capsule) 100 mg PO DAILY PRN PRN Reason: Constipation Magnesium Oxide (Magnesium Oxide 400 Mg Tablet) 400 mg PO BEDTIME [facility] Last Admin: 10/11/23 21:08 Dose: 400 mg Documented By: LAMIN Multivitamins/Vitamin C (Multivitamin Tablet) 1 tab PO DAILY [facility] Last Admin: 10/12/23 08:45 Dose: 1 tab Documented By: SHERRON Neomycin/Polymyxin/Bacitracin (Neomy/Polymyx/Bacit/Ointment 14 Gm Tube) 1 gm TOPICAL BID [facility]; Protocol Last Admin: 10/12/23 08:45 Dose: 1 gm Documented By: SHERRON Nicotine Polacrilex (Nicotine Polacrilex 2 Mg Gum) 4 mg BUCCAL 8XD PRN PRN Reason: nicotine addiction Last Admin: 10/12/23 08:49 Dose: 4 mg Documented By: SHERRON Ondansetron HCl (Ondansetron Hcl 4 Mg/2 Ml Vial) 4 mg IVPUSH Q8H PRN PRN Reason: Nausea and Vomiting Quetiapine Fumarate (Quetiapine Fumarate 50 Mg Tablet) 50 mg PO TID [facility] Last Admin: 10/12/23 08:45 Dose: 50 mg Documented By: SHERRON Quetiapine Fumarate (Quetiapine Fumarate 100 Mg Tablet) 100 mg PO Q6H PRN PRN Reason: agitation Last Admin: 10/10/23 16:44 Dose: 100 mg Documented By: ALEA Sodium Chloride (0.9 % Sodium Chloride Flush 3 Ml Syringe) 3 ml IVFLUSH QSHIFT [facility] Last Admin: 10/12/23 08:41 Dose: Not Given Documented By: SHERRON Non-Admin Reason: No Access Labs 10/04/23 19:39 10/04/23 19:39 Assessment and Plan (1) Alcoholic Korsakoff syndrome: Status: Acute Plan 48yo F with OUD on Suboxone, AUD, Korsakoff syndrome initially presented to ED 09/19/23 with confusion, admitted for placement pending guardianship hearing 10/09/23 Korsakoff syndrome -no behavioral issues noted, continue quetiapine, valproate earlobe infection -improving, continue triple antibiotic ointment OUD - Suboxone VTE ppx - SCDs dispo - eventual LTC In my clinical judgment, the patient requires continued inpatient hospitalization for the following reasons: guardianship then placement Total time managing care of this patient today: 25 minutes. Quality Stroke Does the patient have a stroke diagnosis?: No VTE Prior VTE?: No VTE Risk Level:: Medical - low VTE Device Contraindication: Treatment Not Indicated VTE Drug Contraindication: Treatment Not Indicated
[2023-10-12 15:08] VITALS: BP 94/51; PULSE 80; RESP 18; TEMP 36.4; O2SAT 96
[2023-10-12] MEDS: Acetaminophen 325 MG TABLET 650 MG PO (15:26)
[2023-10-12 19:28] VITALS: BP 106/56; PULSE 82; RESP 18; TEMP 36.2; O2SAT 95
[2023-10-12] MEDS: Magnesium Oxide 400 MG TABLET PO (20:21)
[2023-10-13] MEDS: Nicotine Polacrilex 2 MG GUM 4 MG BUCCAL ×6 (01:45→23:49)
[2023-10-13 03:32] VITALS: BP 90/56; PULSE 63; RESP 16; TEMP 36.3; O2SAT 97
[2023-10-13] MEDS: Acetaminophen 325 MG TABLET 650 MG PO ×3 (06:27→19:30)
[2023-10-13 07:06] VITALS: BP 102/61; PULSE 74; RESP 16; TEMP 36.9; O2SAT 97
[2023-10-13] MEDS: Buprenorphine/Naloxone 8/2 mg FILM 1 FILM SUBLINGUAL ×2 (09:02→19:30)
[2023-10-13] MEDS: Multivitamin TABLET 1 TAB PO (09:02)
[2023-10-13] MEDS: Divalproex Sodium 250 MG TABLET.DR PO ×3 (09:02→19:31)
[2023-10-13] MEDS: QUEtiapine Fumarate 50 MG TABLET PO ×3 (09:02→19:30)
[2023-10-13] MEDS: NeoMY/Polymyx/Bacit/Ointment 14 GM Tube TOPICAL ×2 (09:04→19:31)
--- NOTE | 2023-10-13 12:31 | HO.PM.IMPN ---
Subjective Subjective Date of Service: 10/13/23 Interval History: No acute complaints resting comfortably, tolerating diet, no acute events overnight. Review of Systems All other system reviewed and negative Physical Exam Vital Signs: Vital Signs: Last Vital Signs Temp 98.5 F 10/13/23 07:06 Pulse 74 10/13/23 07:06 Resp 16 10/13/23 07:06 BP 102/61 10/13/23 07:06 Pulse Ox 97 10/13/23 07:06 O2 Del Method Room Air 10/13/23 07:06 O2 Flow Rate 3 10/05/23 16:00 BMI result Body Mass Index 22.7 Const: Other: General resting comfortably in no acute distress. Neck supple no JVD. CVS regular rate rhythm, Respiratory lungs clear to auscultation, no respiratory distress, no wheeze, no rhonchi. Gastrointestinal abdomen soft, non tender, bowel sounds audible Extremities no edema. Neuro speech clear, no focal weakness. Poor insight Objective Data Active Medications Acetaminophen (Acetaminophen 325 Mg Tablet) 650 mg PO Q6H PRN PRN Reason: Pain, Mild (Pain Scale 1-3) Last Admin: 10/13/23 06:27 Dose: 650 mg Documented By: LAMIN Benzonatate (Benzonatate 100 Mg Capsule) 100 mg PO TID PRN PRN Reason: Cough Buprenorphine/Naloxone (Buprenorphine/Naloxone 8/2 Mg Film) 1 film SUBLINGUAL BID [facility] Last Admin: 10/13/23 09:02 Dose: 1 film Documented By: EWA Divalproex Sodium (Divalproex Sodium 250 Mg Tablet.) 250 mg PO TID [facility] Last Admin: 10/13/23 09:02 Dose: 250 mg Documented By: EWA Docusate Sodium (Docusate Sodium 100 Mg Capsule) 100 mg PO DAILY PRN PRN Reason: Constipation Magnesium Oxide (Magnesium Oxide 400 Mg Tablet) 400 mg PO BEDTIME [facility] Last Admin: 10/12/23 20:21 Dose: 400 mg Documented By: LAMIN Multivitamins/Vitamin C (Multivitamin Tablet) 1 tab PO DAILY [facility] Last Admin: 10/13/23 09:02 Dose: 1 tab Documented By: EWA Neomycin/Polymyxin/Bacitracin (Neomy/Polymyx/Bacit/Ointment 14 Gm Tube) 1 gm TOPICAL BID [facility]; Protocol Last Admin: 10/13/23 09:04 Dose: 1 gm Documented By: EWA Nicotine Polacrilex (Nicotine Polacrilex 2 Mg Gum) 4 mg BUCCAL 8XD PRN PRN Reason: nicotine addiction Last Admin: 10/13/23 11:37 Dose: 4 mg Documented By: EWA Ondansetron HCl (Ondansetron Hcl 4 Mg/2 Ml Vial) 4 mg IVPUSH Q8H PRN PRN Reason: Nausea and Vomiting Quetiapine Fumarate (Quetiapine Fumarate 50 Mg Tablet) 50 mg PO TID [facility] Last Admin: 10/13/23 09:02 Dose: 50 mg Documented By: EWA Quetiapine Fumarate (Quetiapine Fumarate 100 Mg Tablet) 100 mg PO Q6H PRN PRN Reason: agitation Last Admin: 10/10/23 16:44 Dose: 100 mg Documented By: ALEA Sodium Chloride (0.9 % Sodium Chloride Flush 3 Ml Syringe) 3 ml IVFLUSH QSHIFT [facility] Last Admin: 10/13/23 07:18 Dose: Not Given Documented By: EWA Non-Admin Reason: No Access Labs 10/04/23 19:39 10/04/23 19:39 Assessment and Plan (1) Alcoholic Korsakoff syndrome: Status: Acute Plan 48yo F with OUD on Suboxone, AUD, Korsakoff syndrome initially presented to ED 09/19/23 with confusion, admitted for placement pending guardianship hearing 10/09/23 Korsakoff syndrome -no behavioral issues noted, continue quetiapine,and valproate. earlobe infection -improving, continue triple antibiotic ointment. OUD - Suboxone. VTE ppx - SCDs. dispo - eventual LTC In my clinical judgment, the patient requires continued inpatient hospitalization for the following reasons: guardianship then placement. Total time managing care of this patient today: 25 minutes. Quality Stroke Does the patient have a stroke diagnosis?: No VTE Prior VTE?: No VTE Risk Level:: Medical - low VTE Device Contraindication: Treatment Not Indicated VTE Drug Contraindication: Treatment Not Indicated
[2023-10-13 15:02] VITALS: BP 113/56; PULSE 87; RESP 18; TEMP 36.9; O2SAT 98
[2023-10-13] MEDS: Magnesium Oxide 400 MG TABLET PO (19:30)
[2023-10-13 19:31] VITALS: BP 118/57; PULSE 92; RESP 19; TEMP 36.9; O2SAT 96
[2023-10-13] MEDS: QUEtiapine Fumarate 100 MG TABLET PO (23:49)
[2023-10-14 04:00] VITALS: BP 93/50; PULSE 73; RESP 16; TEMP 36.1; O2SAT 94
--- NOTE | 2023-10-14 07:31 | HO.PM.IMPN ---
Subjective Subjective Date of Service: 10/14/23 Interval History: No acute events overnight right ear lobe redness swelling improved, no new complaints. Review of Systems All other symptoms reviewed and negative. Physical Exam Vital Signs: Vital Signs: Last Vital Signs Temp 97.0 F 10/14/23 04:00 Pulse 73 10/14/23 04:00 Resp 16 10/14/23 04:00 BP 93/50 L 10/14/23 04:00 Pulse Ox 94 10/14/23 04:00 O2 Del Method Room Air 10/14/23 04:00 O2 Flow Rate 3 10/05/23 16:00 BMI result Body Mass Index 22.7 Const: Other: General resting comfortably in no acute distress. Neck supple no JVD. CVS regular rate rhythm, Respiratory lungs clear to auscultation, no respiratory distress, no wheeze, no rhonchi. Gastrointestinal abdomen soft, non tender, bowel sounds audible Extremities no edema. Neuro speech clear, no focal weakness. Poor insight Objective Data Active Medications Acetaminophen (Acetaminophen 325 Mg Tablet) 650 mg PO Q6H PRN PRN Reason: Pain, Mild (Pain Scale 1-3) Last Admin: 10/13/23 19:30 Dose: 650 mg Documented By: TANK Benzonatate (Benzonatate 100 Mg Capsule) 100 mg PO TID PRN PRN Reason: Cough Buprenorphine/Naloxone (Buprenorphine/Naloxone 8/2 Mg Film) 1 film SUBLINGUAL BID [facility] Last Admin: 10/13/23 19:30 Dose: 1 film Documented By: TANK Divalproex Sodium (Divalproex Sodium 250 Mg Tablet.) 250 mg PO TID [facility] Last Admin: 10/13/23 19:31 Dose: 250 mg Documented By: TANK Docusate Sodium (Docusate Sodium 100 Mg Capsule) 100 mg PO DAILY PRN PRN Reason: Constipation Magnesium Oxide (Magnesium Oxide 400 Mg Tablet) 400 mg PO BEDTIME [facility] Last Admin: 10/13/23 19:30 Dose: 400 mg Documented By: TANK Multivitamins/Vitamin C (Multivitamin Tablet) 1 tab PO DAILY [facility] Last Admin: 10/13/23 09:02 Dose: 1 tab Documented By: EWA Neomycin/Polymyxin/Bacitracin (Neomy/Polymyx/Bacit/Ointment 14 Gm Tube) 1 gm TOPICAL BID [facility]; Protocol Last Admin: 10/13/23 19:31 Dose: 1 gm Documented By: TANK Nicotine Polacrilex (Nicotine Polacrilex 2 Mg Gum) 4 mg BUCCAL 8XD PRN PRN Reason: nicotine addiction Last Admin: 10/13/23 23:49 Dose: 4 mg Documented By: TANK Ondansetron HCl (Ondansetron Hcl 4 Mg/2 Ml Vial) 4 mg IVPUSH Q8H PRN PRN Reason: Nausea and Vomiting Ondansetron HCl (Ondansetron Odt 4 Mg Tab.Rapdis) 4 mg TRANSLINGU Q6H PRN PRN Reason: Nausea and Vomiting Quetiapine Fumarate (Quetiapine Fumarate 50 Mg Tablet) 50 mg PO TID [facility] Last Admin: 10/13/23 19:30 Dose: 50 mg Documented By: TANK Quetiapine Fumarate (Quetiapine Fumarate 100 Mg Tablet) 100 mg PO Q6H PRN PRN Reason: agitation Last Admin: 10/13/23 23:49 Dose: 100 mg Documented By: TANK Sodium Chloride (0.9 % Sodium Chloride Flush 3 Ml Syringe) 3 ml IVFLUSH QSHIFT [facility] Last Admin: 10/14/23 00:43 Dose: Not Given Documented By: TANK Non-Admin Reason: No Access Labs 10/04/23 19:39 10/04/23 19:39 Assessment and Plan (1) Alcoholic Korsakoff syndrome: Status: Acute Plan 48yo F with OUD on Suboxone, AUD, Korsakoff syndrome initially presented to ED 09/19/23 with confusion, admitted for placement pending guardianship hearing 10/09/23 Korsakoff syndrome -no behavioral issues noted, continue quetiapine,and valproate. earlobe infection -resolved will discontinue triple antibiotic ointment. OUD - Suboxone. VTE ppx - SCDs. dispo - eventual LTC In my clinical judgment, the patient requires continued inpatient hospitalization for the following reasons: guardianship then placement. Total time managing care of this patient today: 25 minutes. Quality Stroke Does the patient have a stroke diagnosis?: No VTE Prior VTE?: No VTE Risk Level:: Medical - low VTE Device Contraindication: Treatment Not Indicated VTE Drug Contraindication: Treatment Not Indicated
[2023-10-14 08:00] VITALS: BP 115/60; PULSE 74; RESP 16; TEMP 36.1; O2SAT 98
[2023-10-14] MEDS: Nicotine Polacrilex 2 MG GUM 4 MG BUCCAL ×4 (08:24→21:08)
[2023-10-14] MEDS: QUEtiapine Fumarate 50 MG TABLET PO ×3 (08:24→19:34)
[2023-10-14] MEDS: Divalproex Sodium 250 MG TABLET.DR PO ×3 (08:24→19:34)
[2023-10-14] MEDS: Acetaminophen 325 MG TABLET 650 MG PO ×3 (08:24→21:07)
[2023-10-14] MEDS: Multivitamin TABLET 1 TAB PO (08:25)
[2023-10-14] MEDS: Buprenorphine/Naloxone 8/2 mg FILM 1 FILM SUBLINGUAL ×2 (08:25→19:35)
[2023-10-14 15:29] VITALS: BP 113/58; PULSE 98; RESP 18; TEMP 36.5; O2SAT 94
[2023-10-14 19:25] VITALS: BP 142/79; PULSE 85; RESP 18; TEMP 36.3; O2SAT 100
[2023-10-14] MEDS: Magnesium Oxide 400 MG TABLET PO (19:35)
[2023-10-15 03:43] VITALS: BP 103/55; PULSE 71; RESP 17; TEMP 36.3; O2SAT 98
[2023-10-15 07:32] VITALS: BP 110/64; PULSE 75; RESP 18; TEMP 36; O2SAT 97
[2023-10-15] MEDS: Nicotine Polacrilex 2 MG GUM 4 MG BUCCAL ×4 (08:35→21:03)
[2023-10-15] MEDS: Multivitamin TABLET 1 TAB PO (08:35)
[2023-10-15] MEDS: QUEtiapine Fumarate 50 MG TABLET PO ×3 (08:35→20:57)
[2023-10-15] MEDS: Divalproex Sodium 250 MG TABLET.DR PO ×3 (08:35→20:57)
[2023-10-15] MEDS: Acetaminophen 325 MG TABLET 650 MG PO ×3 (08:35→20:57)
[2023-10-15] MEDS: Buprenorphine/Naloxone 8/2 mg FILM 1 FILM SUBLINGUAL ×2 (08:36→20:57)
--- NOTE | 2023-10-15 09:57 | P.PNIM_ITS ---
Subjective Subjective Date of Service: 10/15/23 Interval History: Being followed for placement Offers no acute complaints, tolerating diet, no nausea, no vomiting ,or abdominal pain, no lightheadedness or dizziness, no fevers, no chills, no acute events overnight. Review of Systems All other system reviewed negative. Physical Exam 2 Vital Signs: Vital Signs: Last Vital Signs Temp 96.8 F 10/15/23 07:32 Pulse 75 10/15/23 07:32 Resp 18 10/15/23 07:32 BP 110/64 10/15/23 07:32 Pulse Ox 97 10/15/23 07:32 O2 Del Method Room Air 10/15/23 07:32 O2 Flow Rate 3 10/05/23 16:00 BMI result Body Mass Index 22.7 Const: Other: General resting comfortably in no acute distress. Neck supple no JVD. CVS regular rate rhythm, Respiratory lungs clear to auscultation, no respiratory distress, no wheeze, no rhonchi. Gastrointestinal abdomen soft, non tender, bowel sounds audible Extremities no edema. Neuro speech clear, no focal weakness. Poor insight Objective Data Active Medications Acetaminophen (Acetaminophen 325 Mg Tablet) 650 mg PO Q6H PRN PRN Reason: Pain, Mild (Pain Scale 1-3) Last Admin: 10/15/23 08:35 Dose: 650 mg Documented By: ALEA Benzonatate (Benzonatate 100 Mg Capsule) 100 mg PO TID PRN PRN Reason: Cough Buprenorphine/Naloxone (Buprenorphine/Naloxone 8/2 Mg Film) 1 film SUBLINGUAL BID [facility] Last Admin: 10/15/23 08:36 Dose: 1 film Documented By: ALEA Divalproex Sodium (Divalproex Sodium 250 Mg Tablet.) 250 mg PO TID [facility] Last Admin: 10/15/23 08:35 Dose: 250 mg Documented By: ALEA Docusate Sodium (Docusate Sodium 100 Mg Capsule) 100 mg PO DAILY PRN PRN Reason: Constipation Magnesium Oxide (Magnesium Oxide 400 Mg Tablet) 400 mg PO BEDTIME [facility] Last Admin: 10/14/23 19:35 Dose: 400 mg Documented By: LYSZ Multivitamins/Vitamin C (Multivitamin Tablet) 1 tab PO DAILY [facility] Last Admin: 10/15/23 08:35 Dose: 1 tab Documented By: ALEA Nicotine Polacrilex (Nicotine Polacrilex 2 Mg Gum) 4 mg BUCCAL 8XD PRN PRN Reason: nicotine addiction Last Admin: 10/15/23 08:35 Dose: 4 mg Documented By: ALEA Ondansetron HCl (Ondansetron Hcl 4 Mg/2 Ml Vial) 4 mg IVPUSH Q8H PRN PRN Reason: Nausea and Vomiting Ondansetron HCl (Ondansetron Odt 4 Mg Tab.Rapdis) 4 mg TRANSLINGU Q6H PRN PRN Reason: Nausea and Vomiting Quetiapine Fumarate (Quetiapine Fumarate 50 Mg Tablet) 50 mg PO TID [facility] Last Admin: 10/15/23 08:35 Dose: 50 mg Documented By: ALEA Quetiapine Fumarate (Quetiapine Fumarate 100 Mg Tablet) 100 mg PO Q6H PRN PRN Reason: agitation Last Admin: 10/13/23 23:49 Dose: 100 mg Documented By: LYSZ Sodium Chloride (0.9 % Sodium Chloride Flush 3 Ml Syringe) 3 ml IVFLUSH QSHIFT [facility] Last Admin: 10/15/23 06:59 Dose: Not Given Documented By: ALEA Non-Admin Reason: No Access Labs 10/04/23 19:39 10/04/23 19:39 Assessment and Plan (1) Alcoholic Korsakoff syndrome: Status: Acute Plan 48yo F with OUD on Suboxone, AUD, Korsakoff syndrome initially presented to ED 09/19/23 with confusion, admitted for placement pending guardianship hearing 10/09/23 Korsakoff syndrome -no behavioral issues noted, continue quetiapine,and valproate. earlobe infection -resolved will discontinue triple antibiotic ointment. OUD - Suboxone. VTE ppx - SCDs. dispo - eventual LTC In my clinical judgment, the patient requires continued inpatient hospitalization for the following reasons: guardianship then placement. Total time managing care of this patient today: 25 minutes. Quality Stroke Does the patient have a stroke diagnosis?: No VTE Prior VTE?: No VTE Risk Level:: Medical - low VTE Device Contraindication: Treatment Not Indicated VTE Drug Contraindication: Treatment Not Indicated
[2023-10-15 14:59] VITALS: BP 124/77; PULSE 83; RESP 18; TEMP 36.4; O2SAT 98
--- NOTE | 2023-10-15 15:00 | PC.NURSE ---
Assumed care of patient at this time.
[2023-10-15 18:52] VITALS: BP 102/61; PULSE 78; RESP 18; TEMP 36.1; O2SAT 98
[2023-10-15] MEDS: Magnesium Oxide 400 MG TABLET PO (20:57)
[2023-10-16] MEDS: QUEtiapine Fumarate 100 MG TABLET PO ×2 (00:36→23:46)
[2023-10-16] MEDS: Acetaminophen 325 MG TABLET 650 MG PO ×3 (03:17→17:41)
[2023-10-16 04:00] VITALS: RESP 18
[2023-10-16 07:41] VITALS: BP 99/58; PULSE 73; RESP 16; TEMP 36.4; O2SAT 97
[2023-10-16] MEDS: Divalproex Sodium 250 MG TABLET.DR PO ×3 (08:27→20:58)
[2023-10-16] MEDS: Buprenorphine/Naloxone 8/2 mg FILM 1 FILM SUBLINGUAL ×2 (08:27→20:58)
[2023-10-16] MEDS: Multivitamin TABLET 1 TAB PO (08:27)
[2023-10-16] MEDS: QUEtiapine Fumarate 50 MG TABLET PO ×3 (08:27→20:58)
[2023-10-16] MEDS: Nicotine Polacrilex 2 MG GUM 4 MG BUCCAL ×4 (10:53→22:56)
--- NOTE | 2023-10-16 11:42 | MHC.CM.PN ---
EMR reviewed. Awaiting guardianship decree. Will need LTC placement. CM will continue to follow.
--- NOTE | 2023-10-16 12:57 | P.PNIM_ITS ---
Subjective Subjective Date of Service: 10/16/23 Interval History: Complaining of left shoulder pain, denies acute injury, asking for Suboxone, no acute issues overnight. Tolerating diet no nausea, no vomiting ,no abdominal pain. Review of Systems All other system reviewed and negative. Physical Exam 2 Vital Signs: Vital Signs: Last Vital Signs Temp 97.6 F 10/16/23 07:41 Pulse 73 10/16/23 07:41 Resp 16 10/16/23 07:41 BP 99/58 L 10/16/23 07:41 Pulse Ox 97 10/16/23 07:41 O2 Del Method Room Air 10/16/23 07:41 O2 Flow Rate 3 10/05/23 16:00 BMI result Body Mass Index 22.7 Const: Other: General resting comfortably in no acute distress. Neck supple no JVD. CVS regular rate rhythm, Respiratory lungs clear to auscultation, no respiratory distress, no wheeze, no rhonchi. Gastrointestinal abdomen soft, non tender, bowel sounds audible Extremities no edema. Left shoulder normal range of motion, no redness, no bruise, tenderness left trapezius, no spasm Neuro speech clear, no focal weakness. Poor insight Objective Data Active Medications Acetaminophen (Acetaminophen 325 Mg Tablet) 650 mg PO Q6H PRN PRN Reason: Pain, Mild (Pain Scale 1-3) Last Admin: 10/16/23 08:27 Dose: 650 mg Documented By: CHRISTOFER Benzonatate (Benzonatate 100 Mg Capsule) 100 mg PO TID PRN PRN Reason: Cough Buprenorphine/Naloxone (Buprenorphine/Naloxone 8/2 Mg Film) 1 film SUBLINGUAL BID [facility] Last Admin: 10/16/23 08:27 Dose: 1 film Documented By: CHRISTOFER Divalproex Sodium (Divalproex Sodium 250 Mg Tablet.) 250 mg PO TID [facility] Last Admin: 10/16/23 08:27 Dose: 250 mg Documented By: CHRISTOFER Docusate Sodium (Docusate Sodium 100 Mg Capsule) 100 mg PO DAILY PRN PRN Reason: Constipation Magnesium Oxide (Magnesium Oxide 400 Mg Tablet) 400 mg PO BEDTIME [facility] Last Admin: 10/15/23 20:57 Dose: 400 mg Documented By: JUAN Multivitamins/Vitamin C (Multivitamin Tablet) 1 tab PO DAILY [facility] Last Admin: 10/16/23 08:27 Dose: 1 tab Documented By: CHRISTOFER Nicotine Polacrilex (Nicotine Polacrilex 2 Mg Gum) 4 mg BUCCAL 8XD PRN PRN Reason: nicotine addiction Last Admin: 10/16/23 10:53 Dose: 4 mg Documented By: CHRISTOFER Ondansetron HCl (Ondansetron Hcl 4 Mg/2 Ml Vial) 4 mg IVPUSH Q8H PRN PRN Reason: Nausea and Vomiting Ondansetron HCl (Ondansetron Odt 4 Mg Tab.Rapdis) 4 mg TRANSLINGU Q6H PRN PRN Reason: Nausea and Vomiting Quetiapine Fumarate (Quetiapine Fumarate 50 Mg Tablet) 50 mg PO TID [facility] Last Admin: 10/16/23 08:27 Dose: 50 mg Documented By: CHRISTOFER Quetiapine Fumarate (Quetiapine Fumarate 100 Mg Tablet) 100 mg PO Q6H PRN PRN Reason: agitation Last Admin: 10/16/23 00:36 Dose: 100 mg Documented By: UJAN Sodium Chloride (0.9 % Sodium Chloride Flush 3 Ml Syringe) 3 ml IVFLUSH QSHIFT [facility] Last Admin: 10/16/23 08:29 Dose: Not Given Documented By: CHRISTOFER Non-Admin Reason: No Access Labs 10/04/23 19:39 10/04/23 19:39 Assessment and Plan (1) Alcoholic Korsakoff syndrome: Status: Acute Plan 48yo F with OUD on Suboxone, AUD, Korsakoff syndrome initially presented to ED 09/19/23 with confusion, admitted for placement pending guardianship hearing 10/09/23 Left shoulder pain likely musculoskeletal will place on ibuprofen 400 mg t.i.d. as needed Korsakoff syndrome -no behavioral issues noted, continue quetiapine,and valproate. earlobe infection -resolved will discontinue triple antibiotic ointment. OUD - Suboxone. VTE ppx - SCDs. dispo - eventual LTC In my clinical judgment, the patient requires continued inpatient hospitalization for the following reasons: guardianship then placement. Total time managing care of this patient today: 25 minutes. Quality Stroke Does the patient have a stroke diagnosis?: No VTE Prior VTE?: No VTE Risk Level:: Medical - low VTE Device Contraindication: Treatment Not Indicated VTE Drug Contraindication: Treatment Not Indicated
[2023-10-16] MEDS: Ibuprofen 400 MG TABLET PO ×2 (13:53→22:54)
[2023-10-16 15:15] VITALS: BP 114/63; PULSE 104; RESP 20; TEMP 36.8; O2SAT 98
[2023-10-16 19:37] VITALS: BP 115/65; PULSE 86; RESP 18; TEMP 36.3; O2SAT 100
[2023-10-16] MEDS: Magnesium Oxide 400 MG TABLET PO (20:58)
[2023-10-17 03:24] VITALS: BP 121/78; PULSE 59; RESP 18; TEMP 36.3; O2SAT 97
[2023-10-17 08:00] VITALS: BP 94/54; PULSE 67; RESP 18; TEMP 36.9; O2SAT 98
[2023-10-17] MEDS: Buprenorphine/Naloxone 8/2 mg FILM 1 FILM SUBLINGUAL ×2 (09:09→20:50)
[2023-10-17] MEDS: Divalproex Sodium 250 MG TABLET.DR PO ×3 (09:09→20:50)
[2023-10-17] MEDS: Multivitamin TABLET 1 TAB PO (09:09)
[2023-10-17] MEDS: QUEtiapine Fumarate 50 MG TABLET PO ×3 (09:09→20:50)
[2023-10-17] MEDS: Nicotine Polacrilex 2 MG GUM 4 MG BUCCAL ×4 (09:12→23:42)
[2023-10-17 15:29] VITALS: BP 91/54; PULSE 77; RESP 16; TEMP 36; O2SAT 94
--- NOTE | 2023-10-17 17:16 | P.PNIM_ITS ---
Subjective Subjective Date of Service: 10/17/23 Interval History: seen and examined this morning resting in bed comfortably - offers no specific complaints Review of Systems Review of Systems: Yes all other systems are reviewed and are negative Constitutional Constitutional: Denies chills and Denies fever(s) Cardiovascular Cardiovascular: Denies chest pain and Denies dyspnea Respiratory Respiratory: Denies cough and Denies dyspnea Gastrointestinal Gastrointestinal: Denies abdominal pain Physical Exam 2 Vital Signs: Vital Signs: Last Vital Signs Temp 96.8 F 10/17/23 15:29 Pulse 77 10/17/23 15:29 Resp 16 10/17/23 15:29 BP 91/54 L 10/17/23 15:29 Pulse Ox 94 10/17/23 15:29 O2 Del Method Room Air 10/17/23 15:29 O2 Flow Rate 3 10/05/23 16:00 BMI result Body Mass Index 22.7 Const: General: alert and awake Nutritional Appearance: average body habitus Resp: Effort & Inspection: normal respiratory effort, able to speak in complete sentences, no respiratory distress and no use of accessory muscles Cardio: Rate: regular rate GI: Inspection: No distended Palpation (GI): Soft to palpation Neuro: General: moves all extremities Extrem: General: Yes no pedal edema Objective Data Active Medications Acetaminophen (Acetaminophen 325 Mg Tablet) 650 mg PO Q6H PRN PRN Reason: Pain, Mild (Pain Scale 1-3) Last Admin: 10/16/23 17:41 Dose: 650 mg Documented By: SHERRON Benzonatate (Benzonatate 100 Mg Capsule) 100 mg PO TID PRN PRN Reason: Cough Buprenorphine/Naloxone (Buprenorphine/Naloxone 8/2 Mg Film) 1 film SUBLINGUAL BID [facility] Last Admin: 10/17/23 09:09 Dose: 1 film Documented By: RAFAEL Divalproex Sodium (Divalproex Sodium 250 Mg Tablet.) 250 mg PO TID [facility] Last Admin: 10/17/23 14:07 Dose: 250 mg Documented By: RAFAEL Docusate Sodium (Docusate Sodium 100 Mg Capsule) 100 mg PO DAILY PRN PRN Reason: Constipation Ibuprofen (Ibuprofen 400 Mg Tablet) 400 mg PO Q8H PRN PRN Reason: Pain, Moderate(Pain Scale 4-6) Stop: 10/21/23 12:58 Last Admin: 10/16/23 22:54 Dose: 400 mg Documented By: JUAN Magnesium Oxide (Magnesium Oxide 400 Mg Tablet) 400 mg PO BEDTIME [facility] Last Admin: 10/16/23 20:58 Dose: 400 mg Documented By: JUAN Multivitamins/Vitamin C (Multivitamin Tablet) 1 tab PO DAILY [facility] Last Admin: 10/17/23 09:09 Dose: 1 tab Documented By: RAFAEL Nicotine Polacrilex (Nicotine Polacrilex 2 Mg Gum) 4 mg BUCCAL 8XD PRN PRN Reason: nicotine addiction Last Admin: 10/17/23 09:12 Dose: 4 mg Documented By: RAFAEL Ondansetron HCl (Ondansetron Hcl 4 Mg/2 Ml Vial) 4 mg IVPUSH Q8H PRN PRN Reason: Nausea and Vomiting Ondansetron HCl (Ondansetron Odt 4 Mg Tab.Rapdis) 4 mg TRANSLINGU Q6H PRN PRN Reason: Nausea and Vomiting Quetiapine Fumarate (Quetiapine Fumarate 50 Mg Tablet) 50 mg PO TID [facility] Last Admin: 10/17/23 14:07 Dose: 50 mg Documented By: RAFAEL Quetiapine Fumarate (Quetiapine Fumarate 100 Mg Tablet) 100 mg PO Q6H PRN PRN Reason: agitation Last Admin: 10/16/23 23:46 Dose: 100 mg Documented By: JUAN Sodium Chloride (0.9 % Sodium Chloride Flush 3 Ml Syringe) 3 ml IVFLUSH QSHIFT [facility] Last Admin: 10/17/23 15:41 Dose: Not Given Documented By: RAFAEL Non-Admin Reason: No Access Labs 10/04/23 19:39 10/04/23 19:39 Assessment and Plan (1) Alcoholic Korsakoff syndrome: Status: Acute Plan 48yo F with OUD on Suboxone, AUD, Korsakoff syndrome initially presented to ED 09/19/23 with confusion, admitted for placement pending guardianship hearing 10/09/23 Left shoulder pain likely musculoskeletal will place on ibuprofen 400 mg t.i.d. as needed Korsakoff syndrome -no behavioral issues noted, continue quetiapine,and valproate. earlobe infection -resolved will discontinue triple antibiotic ointment. OUD - Suboxone. VTE ppx - SCDs. dispo - eventual LTC In my clinical judgment, the patient requires continued inpatient hospitalization for the following reasons: guardianship then placement. Quality Stroke Does the patient have a stroke diagnosis?: No VTE Prior VTE?: No VTE Risk Level:: Medical - low VTE Device Contraindication: Treatment Not Indicated VTE Drug Contraindication: Treatment Not Indicated
[2023-10-17 19:20] VITALS: BP 121/65; PULSE 92; RESP 18; TEMP 36.5; O2SAT 98
[2023-10-17] MEDS: Magnesium Oxide 400 MG TABLET PO (20:50)
[2023-10-17] MEDS: Acetaminophen 325 MG TABLET 650 MG PO (22:47)
[2023-10-17] MEDS: QUEtiapine Fumarate 100 MG TABLET PO (23:39)
[2023-10-18 03:34] VITALS: BP 98/52; PULSE 77; RESP 17; TEMP 36.2; O2SAT 96
[2023-10-18 08:00] VITALS: BP 102/51; PULSE 73; RESP 18; TEMP 36.8; O2SAT 96
[2023-10-18] MEDS: Divalproex Sodium 250 MG TABLET.DR PO ×3 (08:36→20:15)
[2023-10-18] MEDS: Multivitamin TABLET 1 TAB PO (08:36)
[2023-10-18] MEDS: QUEtiapine Fumarate 50 MG TABLET PO ×3 (08:36→20:15)
[2023-10-18] MEDS: Buprenorphine/Naloxone 8/2 mg FILM 1 FILM SUBLINGUAL ×2 (08:37→20:19)
--- NOTE | 2023-10-18 13:55 | MHC.CM.PN ---
DP LTC via BLS. Barriers: Guardianship and [facility] for LTC. Sisters plan to be co-guardians, awaiting decree.
--- NOTE | 2023-10-18 15:43 | P.PNIM_ITS ---
Subjective Subjective Date of Service: 10/18/23 Interval History: seen and examined this morning follow up for placement no overnight events didn't want to talk, put sheet over her head Physical Exam 2 Vital Signs: Vital Signs: Last Vital Signs Temp 98.2 F 10/18/23 08:00 Pulse 73 10/18/23 08:00 Resp 18 10/18/23 08:00 BP 102/51 L 10/18/23 08:00 Pulse Ox 96 10/18/23 08:00 O2 Del Method Room Air 10/18/23 08:00 O2 Flow Rate 3 10/05/23 16:00 BMI result Body Mass Index 22.7 Const: General: alert and awake Nutritional Appearance: average body habitus Resp: Effort & Inspection: normal respiratory effort, able to speak in complete sentences, no respiratory distress and no use of accessory muscles Cardio: Rate: regular rate GI: Inspection: No distended Palpation (GI): Soft to palpation Neuro: General: moves all extremities Extrem: General: Yes no pedal edema Objective Data Active Medications Acetaminophen (Acetaminophen 325 Mg Tablet) 650 mg PO Q6H PRN PRN Reason: Pain, Mild (Pain Scale 1-3) Last Admin: 10/17/23 22:47 Dose: 650 mg Documented By: JACKI Benzonatate (Benzonatate 100 Mg Capsule) 100 mg PO TID PRN PRN Reason: Cough Buprenorphine/Naloxone (Buprenorphine/Naloxone 8/2 Mg Film) 1 film SUBLINGUAL BID [facility] Last Admin: 10/18/23 08:37 Dose: 1 film Documented By: SILVESTRE Divalproex Sodium (Divalproex Sodium 250 Mg Tablet.Dr) 250 mg PO TID [facility] Last Admin: 10/18/23 14:01 Dose: 250 mg Documented By: SILVESTRE Docusate Sodium (Docusate Sodium 100 Mg Capsule) 100 mg PO DAILY PRN PRN Reason: Constipation Ibuprofen (Ibuprofen 400 Mg Tablet) 400 mg PO Q8H PRN PRN Reason: Pain, Moderate(Pain Scale 4-6) Stop: 10/21/23 12:58 Last Admin: 10/16/23 22:54 Dose: 400 mg Documented By: JUAN Magnesium Oxide (Magnesium Oxide 400 Mg Tablet) 400 mg PO BEDTIME [facility] Last Admin: 10/17/23 20:50 Dose: 400 mg Documented By: JACKI Multivitamins/Vitamin C (Multivitamin Tablet) 1 tab PO DAILY [facility] Last Admin: 10/18/23 08:36 Dose: 1 tab Documented By: SILVESTRE Nicotine Polacrilex (Nicotine Polacrilex 2 Mg Gum) 4 mg BUCCAL 8XD PRN PRN Reason: nicotine addiction Last Admin: 10/17/23 23:42 Dose: 4 mg Documented By: JACKI Ondansetron HCl (Ondansetron Hcl 4 Mg/2 Ml Vial) 4 mg IVPUSH Q8H PRN PRN Reason: Nausea and Vomiting Ondansetron HCl (Ondansetron Odt 4 Mg Tab.Rapdis) 4 mg TRANSLINGU Q6H PRN PRN Reason: Nausea and Vomiting Quetiapine Fumarate (Quetiapine Fumarate 50 Mg Tablet) 50 mg PO TID [facility] Last Admin: 10/18/23 14:01 Dose: 50 mg Documented By: SILVESTRE Quetiapine Fumarate (Quetiapine Fumarate 100 Mg Tablet) 100 mg PO Q6H PRN PRN Reason: agitation Last Admin: 10/17/23 23:39 Dose: 100 mg Documented By: JACKI Sodium Chloride (0.9 % Sodium Chloride Flush 3 Ml Syringe) 3 ml IVFLUSH QSHIFT REPLACED BY [facility] Last Admin: 10/18/23 14:02 Dose: Not Given Documented By: SILVESTRE Non-Admin Reason: No Access Labs 10/04/23 19:39 10/04/23 19:39 Assessment and Plan (1) Alcoholic Korsakoff syndrome: Status: Acute (2) Opioid use disorder: Status: Acute Plan 48yo F with OUD on Suboxone, AUD, Korsakoff syndrome initially presented to ED 09/19/23 with confusion, admitted for placement pending guardianship hearing 10/09/23 Left shoulder pain likely musculoskeletal will place on ibuprofen 400 mg t.i.d. as needed Korsakoff syndrome continue quetiapine,and valproate. earlobe infection resolved will discontinue triple antibiotic ointment. OUD continue Suboxone. VTE ppx SCDs dispo eventual LTC In my clinical judgment, the patient requires continued inpatient hospitalization for the following reasons: guardianship then placement. Quality Stroke Does the patient have a stroke diagnosis?: No VTE Prior VTE?: No VTE Risk Level:: Medical - low VTE Device Contraindication: Treatment Not Indicated VTE Drug Contraindication: Treatment Not Indicated
[2023-10-18 15:44] VITALS: BP 121/59; PULSE 100; RESP 20; TEMP 36.4; O2SAT 96
--- NOTE | 2023-10-18 15:57 | PC.NURSE ---
Pt agitated, hitting items in the room, attempting to block camera. Security called. Offered PO Meds to calm patient, patient refused at this time, Provider notified.
[2023-10-18] MEDS: Acetaminophen 325 MG TABLET 650 MG PO (16:54)
[2023-10-18] MEDS: Nicotine Polacrilex 2 MG GUM 4 MG BUCCAL ×2 (16:54→20:16)
[2023-10-18 19:40] VITALS: BP 118/59; PULSE 90; RESP 20; TEMP 36.6; O2SAT 97
[2023-10-18] MEDS: Magnesium Oxide 400 MG TABLET PO (20:15)
[2023-10-19 07:33] VITALS: BP 93/50; PULSE 67; RESP 16; TEMP 36.6; O2SAT 97
[2023-10-19] MEDS: Nicotine Polacrilex 2 MG GUM 4 MG BUCCAL ×4 (07:34→21:01)
[2023-10-19] MEDS: Buprenorphine/Naloxone 8/2 mg FILM 1 FILM SUBLINGUAL ×2 (08:30→21:01)
[2023-10-19] MEDS: Acetaminophen 325 MG TABLET 650 MG PO ×2 (08:30→14:43)
[2023-10-19] MEDS: Divalproex Sodium 250 MG TABLET.DR PO ×3 (08:30→21:00)
[2023-10-19] MEDS: Multivitamin TABLET 1 TAB PO (08:30)
[2023-10-19] MEDS: QUEtiapine Fumarate 50 MG TABLET PO ×3 (08:30→21:01)
[2023-10-19 15:10] VITALS: BP 131/58; PULSE 78; RESP 18; TEMP 36.6; O2SAT 98
--- NOTE | 2023-10-19 16:03 | HO.PM.IMPN ---
Subjective Subjective Date of Service: 10/19/23 Interval History: seen and examined this morning follow up for placement patient asking for caffeine and nicotine gum this am, walking around room. doesn't want to stay, wants to go home Review of Systems Review of Systems: Yes all other systems are reviewed and are negative Constitutional Constitutional: Denies chills and Denies fever(s) Cardiovascular Cardiovascular: Denies chest pain Gastrointestinal Gastrointestinal: Denies abdominal pain Physical Exam Vital Signs: Vital Signs: Last Vital Signs Temp 97.8 F 10/19/23 15:10 Pulse 78 10/19/23 15:10 Resp 18 10/19/23 15:10 BP 131/58 L 10/19/23 15:10 Pulse Ox 98 10/19/23 15:10 O2 Del Method Room Air 10/19/23 15:10 O2 Flow Rate 3 10/05/23 16:00 BMI result Body Mass Index 22.7 Const: General: comfortable, no acute distress, alert and awake Nutritional Appearance: average body habitus Resp: Effort & Inspection: normal respiratory effort, able to speak in complete sentences, no respiratory distress and no use of accessory muscles Cardio: Rate: regular rate GI: Inspection: No distended Palpation (GI): Soft to palpation Neuro: General: moves all extremities Extrem: General: Yes no pedal edema Objective Data Active Medications Acetaminophen (Acetaminophen 325 Mg Tablet) 650 mg PO Q6H PRN PRN Reason: Pain, Mild (Pain Scale 1-3) Last Admin: 10/19/23 14:43 Dose: 650 mg Documented By: OH Benzonatate (Benzonatate 100 Mg Capsule) 100 mg PO TID PRN PRN Reason: Cough Buprenorphine/Naloxone (Buprenorphine/Naloxone 8/2 Mg Film) 1 film SUBLINGUAL BID [facility] Last Admin: 10/19/23 08:30 Dose: 1 film Documented By: OH Divalproex Sodium (Divalproex Sodium 250 Mg Tablet.) 250 mg PO TID [facility] Last Admin: 10/19/23 14:40 Dose: 250 mg Documented By: OH Docusate Sodium (Docusate Sodium 100 Mg Capsule) 100 mg PO DAILY PRN PRN Reason: Constipation Ibuprofen (Ibuprofen 400 Mg Tablet) 400 mg PO Q8H PRN PRN Reason: Pain, Moderate(Pain Scale 4-6) Stop: 10/21/23 12:58 Last Admin: 10/16/23 22:54 Dose: 400 mg Documented By: JUNA Magnesium Oxide (Magnesium Oxide 400 Mg Tablet) 400 mg PO BEDTIME [facility] Last Admin: 10/18/23 20:15 Dose: 400 mg Documented By: MAICO Multivitamins/Vitamin C (Multivitamin Tablet) 1 tab PO DAILY [facility] Last Admin: 10/19/23 08:30 Dose: 1 tab Documented By: OH Nicotine Polacrilex (Nicotine Polacrilex 2 Mg Gum) 4 mg BUCCAL 8XD PRN PRN Reason: nicotine addiction Last Admin: 10/19/23 14:40 Dose: 4 mg Documented By: OH Ondansetron HCl (Ondansetron Hcl 4 Mg/2 Ml Vial) 4 mg IVPUSH Q8H PRN PRN Reason: Nausea and Vomiting Ondansetron HCl (Ondansetron Odt 4 Mg Tab.Rapdis) 4 mg TRANSLINGU Q6H PRN PRN Reason: Nausea and Vomiting Quetiapine Fumarate (Quetiapine Fumarate 50 Mg Tablet) 50 mg PO TID [facility] Last Admin: 10/19/23 14:40 Dose: 50 mg Documented By: OH Quetiapine Fumarate (Quetiapine Fumarate 100 Mg Tablet) 100 mg PO Q6H PRN PRN Reason: agitation Last Admin: 10/17/23 23:39 Dose: 100 mg Documented By: JACKI Sodium Chloride (0.9 % Sodium Chloride Flush 3 Ml Syringe) 3 ml IVFLUSH QSHIFT [facility] Last Admin: 10/19/23 14:41 Dose: Not Given Documented By: OH Non-Admin Reason: No Access Labs 10/04/23 19:39 10/04/23 19:39 Assessment and Plan (1) Alcoholic Korsakoff syndrome: Status: Acute Plan This is 48yo F with OUD on Suboxone, AUD, Korsakoff syndrome initially presented to ED 09/19/23 with confusion, admitted for placement pending guardianship hearing 10/09/23 Left shoulder pain likely musculoskeletal will place on ibuprofen 400 mg t.i.d. as needed Korsakoff syndrome continue quetiapine, and valproate. earlobe infection resolved will discontinue triple antibiotic ointment OUD continue Suboxone. VTE ppx SCDs dispo eventual LTC In my clinical judgment, the patient requires continued inpatient hospitalization for the following reasons: guardianship then placement. Quality Stroke Does the patient have a stroke diagnosis?: No VTE Prior VTE?: No VTE Risk Level:: Medical - low VTE Device Contraindication: Treatment Not Indicated VTE Drug Contraindication: Treatment Not Indicated
[2023-10-19 20:00] VITALS: BP 120/58; PULSE 65; RESP 18; TEMP 37.2; O2SAT 95
[2023-10-19] MEDS: Magnesium Oxide 400 MG TABLET PO (21:01)
[2023-10-20 03:52] VITALS: BP 93/51; PULSE 61; RESP 18; TEMP 36.8; O2SAT 96
[2023-10-20 07:34] VITALS: BP 97/53; PULSE 65; RESP 16; TEMP 36.3; O2SAT 96
[2023-10-20] MEDS: Acetaminophen 325 MG TABLET 650 MG PO ×3 (07:43→20:05)
[2023-10-20] MEDS: QUEtiapine Fumarate 50 MG TABLET PO ×3 (07:44→21:07)
[2023-10-20] MEDS: Divalproex Sodium 250 MG TABLET.DR PO ×3 (07:44→21:07)
[2023-10-20] MEDS: Multivitamin TABLET 1 TAB PO (07:44)
[2023-10-20] MEDS: Nicotine Polacrilex 2 MG GUM 4 MG BUCCAL ×4 (07:44→20:06)
[2023-10-20] MEDS: Buprenorphine/Naloxone 8/2 mg FILM 1 FILM SUBLINGUAL ×2 (08:40→21:07)
[2023-10-20] MEDS: Ibuprofen 400 MG TABLET PO ×2 (12:29→22:19)
[2023-10-20] MEDS: QUEtiapine Fumarate 100 MG TABLET PO ×2 (12:35→22:19)
--- NOTE | 2023-10-20 13:41 | P.PNIM_ITS ---
Subjective Subjective Date of Service: 10/20/23 Interval History: seen and examined this morning follow up for placement no overnight events resting in bed comfortably Review of Systems Review of Systems: Yes all other systems are reviewed and are negative Constitutional Constitutional: Denies chills and Denies fever(s) Cardiovascular Cardiovascular: Denies chest pain Gastrointestinal Gastrointestinal: Denies abdominal pain Physical Exam 2 Vital Signs: Vital Signs: Last Vital Signs Temp 97.4 F 10/20/23 07:34 Pulse 65 10/20/23 07:34 Resp 16 10/20/23 07:34 BP 97/53 L 10/20/23 07:34 Pulse Ox 96 10/20/23 07:34 O2 Del Method Room Air 10/20/23 07:34 O2 Flow Rate 3 10/05/23 16:00 BMI result Body Mass Index 22.7 Const: General: comfortable, no acute distress, alert and awake Nutritional Appearance: average body habitus Resp: Effort & Inspection: normal respiratory effort, able to speak in complete sentences, no respiratory distress and no use of accessory muscles Cardio: Rate: regular rate GI: Inspection: No distended Palpation (GI): Soft to palpation Neuro: General: moves all extremities Extrem: General: Yes no pedal edema Objective Data Active Medications Acetaminophen (Acetaminophen 325 Mg Tablet) 650 mg PO Q6H PRN PRN Reason: Pain, Mild (Pain Scale 1-3) Last Admin: 10/20/23 07:43 Dose: 650 mg Documented By: SANTIAGO Benzonatate (Benzonatate 100 Mg Capsule) 100 mg PO TID PRN PRN Reason: Cough Buprenorphine/Naloxone (Buprenorphine/Naloxone 8/2 Mg Film) 1 film SUBLINGUAL BID [facility] Last Admin: 10/20/23 08:40 Dose: 1 film Documented By: SANTIAGO Divalproex Sodium (Divalproex Sodium 250 Mg Tablet.Dr) 250 mg PO TID [facility] [place] Last Admin: 10/20/23 07:44 Dose: 250 mg Documented By: SANTIAGO Docusate Sodium (Docusate Sodium 100 Mg Capsule) 100 mg PO DAILY PRN PRN Reason: Constipation Ibuprofen (Ibuprofen 400 Mg Tablet) 400 mg PO Q8H PRN PRN Reason: Pain, Moderate(Pain Scale 4-6) Stop: 10/21/23 12:58 Last Admin: 10/20/23 12:29 Dose: 400 mg Documented By: SANTIAGO Magnesium Oxide (Magnesium Oxide 400 Mg Tablet) 400 mg PO BEDTIME [facility] [place] Last Admin: 10/19/23 21:01 Dose: 400 mg Documented By: MAICO Multivitamins/Vitamin C (Multivitamin Tablet) 1 tab PO DAILY [facility] [place] Last Admin: 10/20/23 07:44 Dose: 1 tab Documented By: SANTIAGO Nicotine Polacrilex (Nicotine Polacrilex 2 Mg Gum) 4 mg BUCCAL 8XD PRN PRN Reason: nicotine addiction Last Admin: 10/20/23 12:36 Dose: 4 mg Documented By: SANTIAGO Ondansetron HCl (Ondansetron Hcl 4 Mg/2 Ml Vial) 4 mg IVPUSH Q8H PRN PRN Reason: Nausea and Vomiting Ondansetron HCl (Ondansetron Odt 4 Mg Tab.Rapdis) 4 mg TRANSLINGU Q6H PRN PRN Reason: Nausea and Vomiting Quetiapine Fumarate (Quetiapine Fumarate 50 Mg Tablet) 50 mg PO TID [facility] [place] Last Admin: 10/20/23 07:44 Dose: 50 mg Documented By: SANTIAGO Quetiapine Fumarate (Quetiapine Fumarate 100 Mg Tablet) 100 mg PO Q6H PRN PRN Reason: agitation Last Admin: 10/20/23 12:35 Dose: 100 mg Documented By: SANTIAGO Sodium Chloride (0.9 % Sodium Chloride Flush 3 Ml Syringe) 3 ml IVFLUSH QSHIFT [facility] [place] Last Admin: 10/20/23 07:43 Dose: Not Given Documented By: SANTIAGO Non-Admin Reason: no IV access Labs 10/04/23 19:39 10/04/23 19:39 Assessment and Plan (1) Alcoholic Korsakoff syndrome: Status: Acute (2) Opioid use disorder: Status: Acute Plan This is 48yo F with OUD on Suboxone, AUD, Korsakoff syndrome initially presented to ED 09/19/23 with confusion, admitted for placement Left shoulder pain likely musculoskeletal will place on ibuprofen 400 mg t.i.d. as needed Korsakoff syndrome continue quetiapine, and valproate. earlobe infection resolved will discontinue triple antibiotic ointment OUD continue Suboxone. VTE ppx SCDs/early ambulation dispo eventual LTC In my clinical judgment, the patient requires continued inpatient hospitalization for the following reasons: guardianship then placement. Quality Stroke Does the patient have a stroke diagnosis?: No VTE Prior VTE?: No VTE Risk Level:: Medical - low VTE Device Contraindication: Treatment Not Indicated VTE Drug Contraindication: Treatment Not Indicated
[2023-10-20 15:34] VITALS: BP 109/56; PULSE 87; RESP 18; TEMP 36.3; O2SAT 96
[2023-10-20 19:56] VITALS: BP 111/55; PULSE 77; RESP 18; TEMP 36.4; O2SAT 98
[2023-10-20] MEDS: Magnesium Oxide 400 MG TABLET PO (21:07)
[2023-10-21 03:38] VITALS: BP 97/55; PULSE 60; RESP 18; TEMP 36.5; O2SAT 96
[2023-10-21 08:00] VITALS: BP 93/54; PULSE 61; RESP 18; TEMP 36; O2SAT 96
[2023-10-21] MEDS: Divalproex Sodium 250 MG TABLET.DR PO ×3 (08:31→21:31)
[2023-10-21] MEDS: QUEtiapine Fumarate 50 MG TABLET PO ×3 (08:31→21:31)
[2023-10-21] MEDS: Buprenorphine/Naloxone 8/2 mg FILM 1 FILM SUBLINGUAL ×2 (08:31→21:31)
[2023-10-21] MEDS: Multivitamin TABLET 1 TAB PO (08:31)
--- NOTE | 2023-10-21 11:57 | HO.PM.IMPN ---
Subjective Subjective Date of Service: 10/21/23 Interval History: Being followed for placement Tolerating diet no nausea, no vomiting, no abdominal pain, no other acute issues overnight. Review of Systems All other system reviewed and negative. Physical Exam Vital Signs: Vital Signs: Last Vital Signs Temp 96.8 F 10/21/23 08:00 Pulse 61 10/21/23 08:00 Resp 18 10/21/23 08:00 BP 93/54 L 10/21/23 08:00 Pulse Ox 96 10/21/23 08:00 O2 Del Method Room Air 10/21/23 08:00 O2 Flow Rate 3 10/05/23 16:00 BMI result Body Mass Index 22.7 Const: Other: General resting comfortably in no acute distress. Neck supple no JVD. CVS regular rate rhythm, Respiratory lungs clear to auscultation, no respiratory distress, no wheeze, no rhonchi. Gastrointestinal abdomen soft, non tender, bowel sounds audible Extremities no edema. Neuro speech clear, no focal weakness. Poor insight Objective Data Active Medications Acetaminophen (Acetaminophen 325 Mg Tablet) 650 mg PO Q6H PRN PRN Reason: Pain, Mild (Pain Scale 1-3) Last Admin: 10/20/23 20:05 Dose: 650 mg Documented By: JUAN Benzonatate (Benzonatate 100 Mg Capsule) 100 mg PO TID PRN PRN Reason: Cough Buprenorphine/Naloxone (Buprenorphine/Naloxone 8/2 Mg Film) 1 film SUBLINGUAL BID [facility] Last Admin: 10/21/23 08:31 Dose: 1 film Documented By: SILVESTRE Divalproex Sodium (Divalproex Sodium 250 Mg Edward.) 250 mg PO TID [facility] Last Admin: 10/21/23 08:31 Dose: 250 mg Documented By: SILVESTRE Docusate Sodium (Docusate Sodium 100 Mg Capsule) 100 mg PO DAILY PRN PRN Reason: Constipation Ibuprofen (Ibuprofen 400 Mg Tablet) 400 mg PO Q8H PRN PRN Reason: Pain, Moderate(Pain Scale 4-6) Stop: 10/21/23 12:58 Last Admin: 10/20/23 22:19 Dose: 400 mg Documented By: JUAN Magnesium Oxide (Magnesium Oxide 400 Mg Tablet) 400 mg PO BEDTIME [facility] Last Admin: 10/20/23 21:07 Dose: 400 mg Documented By: JUAN Multivitamins/Vitamin C (Multivitamin Tablet) 1 tab PO DAILY [facility] Last Admin: 10/21/23 08:31 Dose: 1 tab Documented By: SILVESTRE Nicotine Polacrilex (Nicotine Polacrilex 2 Mg Gum) 4 mg BUCCAL 8XD PRN PRN Reason: nicotine addiction Last Admin: 10/20/23 20:06 Dose: 4 mg Documented By: JUNA Ondansetron HCl (Ondansetron Hcl 4 Mg/2 Ml Vial) 4 mg IVPUSH Q8H PRN PRN Reason: Nausea and Vomiting Ondansetron HCl (Ondansetron Odt 4 Mg Tab.Rapdis) 4 mg TRANSLINGU Q6H PRN PRN Reason: Nausea and Vomiting Quetiapine Fumarate (Quetiapine Fumarate 50 Mg Tablet) 50 mg PO TID [facility] Last Admin: 10/21/23 08:31 Dose: 50 mg Documented By: SILVESTRE Quetiapine Fumarate (Quetiapine Fumarate 100 Mg Tablet) 100 mg PO Q6H PRN PRN Reason: agitation Last Admin: 10/20/23 22:19 Dose: 100 mg Documented By: JUAN Sodium Chloride (0.9 % Sodium Chloride Flush 3 Ml Syringe) 3 ml IVFLUSH QSHIFT [facility] Last Admin: 10/21/23 06:58 Dose: Not Given Documented By: SILVESTRE Non-Admin Reason: No Access Labs 10/04/23 19:39 10/04/23 19:39 Assessment and Plan (1) Alcoholic Korsakoff syndrome: Status: Acute (2) Opioid use disorder: Status: Acute Plan This is 48yo F with OUD on Suboxone, AUD, Korsakoff syndrome initially presented to ED 09/19/23 with confusion, admitted for placement Left shoulder pain stable continue as needed analgesics Korsakoff syndrome continue quetiapine, and valproate. earlobe infection resolved OUD continue Suboxone. VTE ppx SCDs/early ambulation dispo eventual LTC In my clinical judgment, the patient requires continued inpatient hospitalization for the following reasons: guardianship then placement. Quality Stroke Does the patient have a stroke diagnosis?: No VTE Prior VTE?: No VTE Risk Level:: Medical - low VTE Device Contraindication: Treatment Not Indicated VTE Drug Contraindication: Treatment Not Indicated
[2023-10-21] MEDS: Nicotine Polacrilex 2 MG GUM 4 MG BUCCAL ×2 (14:05→19:56)
--- NOTE | 2023-10-21 14:23 | MHC.CM.PN ---
per rounds pt not ready for dc will have angio today awaitng guardiamship decreee
[2023-10-21 15:21] VITALS: BP 105/57; PULSE 76; RESP 18; TEMP 36.6; O2SAT 97
[2023-10-21] MEDS: Acetaminophen 325 MG TABLET 650 MG PO (19:56)
[2023-10-21 20:00] VITALS: BP 120/67; PULSE 78; RESP 16; TEMP 36.4; O2SAT 99
[2023-10-21] MEDS: Magnesium Oxide 400 MG TABLET PO (21:31)
[2023-10-22 03:18] VITALS: BP 94/55; PULSE 71; RESP 17; TEMP 36.3; O2SAT 95
[2023-10-22 08:00] VITALS: BP 105/58; PULSE 82; RESP 18; TEMP 36.4; O2SAT 96
[2023-10-22] MEDS: Buprenorphine/Naloxone 8/2 mg FILM 1 FILM SUBLINGUAL ×2 (08:32→20:01)
[2023-10-22] MEDS: Multivitamin TABLET 1 TAB PO (08:32)
[2023-10-22] MEDS: QUEtiapine Fumarate 50 MG TABLET PO ×3 (08:32→20:00)
[2023-10-22] MEDS: Divalproex Sodium 250 MG TABLET.DR PO ×3 (08:32→20:00)
[2023-10-22] MEDS: Nicotine Polacrilex 2 MG GUM 4 MG BUCCAL ×3 (09:33→20:00)
--- NOTE | 2023-10-22 09:41 | P.PNIM_ITS ---
Subjective Subjective Date of Service: 10/22/23 Interval History: Being followed for placement. Offers no acute complaints, tolerating diet no nausea. no vomiting. or abdominal discomfort, no acute events overnight. Review of Systems All other system reviewed and negative. Physical Exam 2 Vital Signs: Vital Signs: Last Vital Signs Temp 97.3 F 10/22/23 03:18 Pulse 71 10/22/23 03:18 Resp 17 10/22/23 03:18 BP 94/55 L 10/22/23 03:18 Pulse Ox 95 10/22/23 03:18 O2 Del Method Room Air 10/22/23 03:18 O2 Flow Rate 3 10/05/23 16:00 BMI result Body Mass Index 22.7 Const: Other: General resting comfortably in no acute distress. Neck supple no JVD. CVS regular rate rhythm, Respiratory lungs clear to auscultation, no respiratory distress, no wheeze, no rhonchi. Gastrointestinal abdomen soft, non tender, bowel sounds audible Extremities no edema. Neuro speech clear, no focal weakness. Poor insight Objective Data Active Medications Acetaminophen (Acetaminophen 325 Mg Tablet) 650 mg PO Q6H PRN PRN Reason: Pain, Mild (Pain Scale 1-3) Last Admin: 10/21/23 19:56 Dose: 650 mg Documented By: JUAN Benzonatate (Benzonatate 100 Mg Capsule) 100 mg PO TID PRN PRN Reason: Cough Buprenorphine/Naloxone (Buprenorphine/Naloxone 8/2 Mg Film) 1 film SUBLINGUAL BID [facility] Last Admin: 10/22/23 08:32 Dose: 1 film Documented By: SILVESTRE Divalproex Sodium (Divalproex Sodium 250 Mg Tablet.) 250 mg PO TID [facility] Last Admin: 10/22/23 08:32 Dose: 250 mg Documented By: SILVESTRE Docusate Sodium (Docusate Sodium 100 Mg Capsule) 100 mg PO DAILY PRN PRN Reason: Constipation Magnesium Oxide (Magnesium Oxide 400 Mg Tablet) 400 mg PO BEDTIME [facility] Last Admin: 10/21/23 21:31 Dose: 400 mg Documented By: JUAN Multivitamins/Vitamin C (Multivitamin Tablet) 1 tab PO DAILY [facility] Last Admin: 10/22/23 08:32 Dose: 1 tab Documented By: SILVESTRE Nicotine Polacrilex (Nicotine Polacrilex 2 Mg Gum) 4 mg BUCCAL 8XD PRN PRN Reason: nicotine addiction Last Admin: 10/22/23 09:33 Dose: 4 mg Documented By: SILVESTRE Ondansetron HCl (Ondansetron Hcl 4 Mg/2 Ml Vial) 4 mg IVPUSH Q8H PRN PRN Reason: Nausea and Vomiting Ondansetron HCl (Ondansetron Odt 4 Mg Tab.Rapdis) 4 mg TRANSLINGU Q6H PRN PRN Reason: Nausea and Vomiting Quetiapine Fumarate (Quetiapine Fumarate 50 Mg Tablet) 50 mg PO TID [facility] Last Admin: 10/22/23 08:32 Dose: 50 mg Documented By: SILVESTRE Quetiapine Fumarate (Quetiapine Fumarate 100 Mg Tablet) 100 mg PO Q6H PRN PRN Reason: agitation Last Admin: 10/20/23 22:19 Dose: 100 mg Documented By: JUAN Labs 10/04/23 19:39 10/04/23 19:39 Assessment and Plan (1) Alcoholic Korsakoff syndrome: Status: Acute (2) Opioid use disorder: Status: Acute Plan This is 48yo F with OUD on Suboxone, AUD, Korsakoff syndrome initially presented to ED 09/19/23 with confusion, admitted for placement Left shoulder pain stable continue as needed analgesics Korsakoff syndrome continue quetiapine, and valproate. earlobe infection resolved OUD continue Suboxone. VTE ppx SCDs/encourage ambulation dispo eventual LTC In my clinical judgment, the patient requires continued inpatient hospitalization for the following reasons: guardianship then placement. Quality Stroke Does the patient have a stroke diagnosis?: No VTE Prior VTE?: No VTE Risk Level:: Medical - low VTE Device Contraindication: Treatment Not Indicated VTE Drug Contraindication: Treatment Not Indicated
[2023-10-22] MEDS: Acetaminophen 325 MG TABLET 650 MG PO ×2 (14:27→20:00)
[2023-10-22 15:22] VITALS: BP 120/64; PULSE 89; RESP 18; TEMP 36.6; O2SAT 97
[2023-10-22 19:13] VITALS: BP 110/65; PULSE 81; RESP 18; TEMP 36.5; O2SAT 100
[2023-10-22] MEDS: Magnesium Oxide 400 MG TABLET PO (20:00)
[2023-10-23] MEDS: Nicotine Polacrilex 2 MG GUM 4 MG BUCCAL ×3 (00:25→17:22)
[2023-10-23 03:26] VITALS: BP 98/58; PULSE 64; RESP 16; TEMP 36.3; O2SAT 95
[2023-10-23 08:00] VITALS: BP 90/53; PULSE 61; RESP 18; TEMP 36.3; O2SAT 97
--- NOTE | 2023-10-23 09:02 | P.PNIM_ITS ---
Subjective Subjective Date of Service: 10/23/23 Interval History: Being followed for placement, complaining of left shoulder pain and foot pain, tolerating diet no nausea, no vomiting, no abdominal pain, no other acute issues overnight. Review of Systems All other symptoms reviewed and negative although patient has severe cognitive impairment. Physical Exam 2 Vital Signs: Vital Signs: Last Vital Signs Temp 97.3 F 10/23/23 08:00 Pulse 61 10/23/23 08:00 Resp 18 10/23/23 08:00 BP 90/53 L 10/23/23 08:00 Pulse Ox 97 10/23/23 08:00 O2 Del Method Room Air 10/23/23 08:00 O2 Flow Rate 3 10/05/23 16:00 BMI result Body Mass Index 22.7 Const: Other: General resting comfortably in no acute distress. Neck supple no JVD. Small bruise left shoulder CVS regular rate rhythm, Respiratory lungs clear to auscultation, no respiratory distress, no wheeze, no rhonchi. Gastrointestinal abdomen soft, non tender, bowel sounds audible Extremities no edema. Neuro speech clear, no focal weakness. Poor insight Objective Data Active Medications Acetaminophen (Acetaminophen 325 Mg Tablet) 650 mg PO Q6H PRN PRN Reason: Pain, Mild (Pain Scale 1-3) Last Admin: 10/22/23 20:00 Dose: 650 mg Documented By: FREDRICK Benzonatate (Benzonatate 100 Mg Capsule) 100 mg PO TID PRN PRN Reason: Cough Buprenorphine/Naloxone (Buprenorphine/Naloxone 8/2 Mg Film) 1 film SUBLINGUAL BID [facility] Last Admin: 10/22/23 20:01 Dose: 1 film Documented By: FREDRICK Divalproex Sodium (Divalproex Sodium 250 Mg Tablet.) 250 mg PO TID [facility] Last Admin: 10/22/23 20:00 Dose: 250 mg Documented By: FREDRICK Docusate Sodium (Docusate Sodium 100 Mg Capsule) 100 mg PO DAILY PRN PRN Reason: Constipation Magnesium Oxide (Magnesium Oxide 400 Mg Tablet) 400 mg PO BEDTIME [facility] Last Admin: 10/22/23 20:00 Dose: 400 mg Documented By: FREDRICK Multivitamins/Vitamin C (Multivitamin Tablet) 1 tab PO DAILY [facility] Last Admin: 10/22/23 08:32 Dose: 1 tab Documented By: SILVESTRE Nicotine Polacrilex (Nicotine Polacrilex 2 Mg Gum) 4 mg BUCCAL 8XD PRN PRN Reason: nicotine addiction Last Admin: 10/23/23 00:25 Dose: 4 mg Documented By: SHAYY Ondansetron HCl (Ondansetron Hcl 4 Mg/2 Ml Vial) 4 mg IVPUSH Q8H PRN PRN Reason: Nausea and Vomiting Ondansetron HCl (Ondansetron Odt 4 Mg Tab.Rapdis) 4 mg TRANSLINGU Q6H PRN PRN Reason: Nausea and Vomiting Quetiapine Fumarate (Quetiapine Fumarate 50 Mg Tablet) 50 mg PO TID [facility] Last Admin: 10/22/23 20:00 Dose: 50 mg Documented By: DIAZDEM Quetiapine Fumarate (Quetiapine Fumarate 100 Mg Tablet) 100 mg PO Q6H PRN PRN Reason: agitation Last Admin: 10/20/23 22:19 Dose: 100 mg Documented By: RONALSK Labs 10/04/23 19:39 10/04/23 19:39 Assessment and Plan (1) Alcoholic Korsakoff syndrome: Status: Acute (2) Opioid use disorder: Status: Acute Plan This is 48yo F with OUD on Suboxone, AUD, Korsakoff syndrome initially presented to ED 09/19/23 with confusion, admitted for placement Left shoulder pain /bruise stable continue as needed analgesics Korsakoff syndrome continue quetiapine, and valproate. earlobe infection resolved OUD continue Suboxone. VTE ppx SCDs/encourage ambulation dispo eventual LTC In my clinical judgment, the patient requires continued inpatient hospitalization for the following reasons: guardianship then placement. Quality Stroke Does the patient have a stroke diagnosis?: No VTE Prior VTE?: No VTE Risk Level:: Medical - low VTE Device Contraindication: Treatment Not Indicated VTE Drug Contraindication: Treatment Not Indicated
[2023-10-23] MEDS: Multivitamin TABLET 1 TAB PO (09:51)
[2023-10-23] MEDS: Acetaminophen 325 MG TABLET 650 MG PO ×2 (09:51→17:21)
[2023-10-23] MEDS: QUEtiapine Fumarate 50 MG TABLET PO ×3 (09:51→20:37)
[2023-10-23] MEDS: Divalproex Sodium 250 MG TABLET.DR PO ×3 (09:51→20:36)
[2023-10-23 09:53] VITALS: BP 90/54; PULSE 62; O2SAT 95
[2023-10-23 10:34] VITALS: BP 115/62; PULSE 73
--- NOTE | 2023-10-23 10:40 | MHC.CM.PN ---
This editorial writer received call from [employer] Tonia Clay- informed that scientific informatics leader did not allow for both sisters to be co-guardians d/t CORI background w/ Samantha. Recommendation is to still work with both sisters, but Conchis is ultimate decision maker. Tonia Clay did advise that Conchis leans towards allowing Bud to discharge patient back with partner Clemetn Wan. this is against the recommendation of [facility]. If Conchis was to communicate this plan w/ [facility] we are to contact [employer] ASAP, to initiate removal of Conchis as guardian.
[2023-10-23] MEDS: Buprenorphine/Naloxone 8/2 mg FILM 1 FILM SUBLINGUAL ×2 (10:44→20:54)
--- NOTE | 2023-10-23 15:23 | MHC.CM.PN ---
Guardianship decree uploaded to [facility] naming sister Conchis as guardian. [phone]. Referral sent to financial services to change insurance to [employer].
[2023-10-23 15:36] VITALS: BP 110/59; PULSE 76; RESP 18; TEMP 36.1; O2SAT 98
[2023-10-23 19:37] VITALS: BP 98/54; PULSE 74; RESP 18; TEMP 36.9; O2SAT 95
[2023-10-23] MEDS: Magnesium Oxide 400 MG TABLET PO (20:37)
[2023-10-24 03:12] VITALS: BP 90/53; PULSE 59; RESP 17; TEMP 36.4; O2SAT 96
[2023-10-24 07:43] VITALS: BP 100/56; PULSE 57; RESP 16; TEMP 36.1; O2SAT 96
[2023-10-24] MEDS: Multivitamin TABLET 1 TAB PO (08:37)
[2023-10-24] MEDS: Divalproex Sodium 250 MG TABLET.DR PO ×3 (08:37→20:40)
[2023-10-24] MEDS: Acetaminophen 325 MG TABLET 650 MG PO ×3 (08:37→20:39)
[2023-10-24] MEDS: QUEtiapine Fumarate 50 MG TABLET PO ×3 (08:37→20:40)
[2023-10-24] MEDS: Buprenorphine/Naloxone 8/2 mg FILM 1 FILM SUBLINGUAL ×2 (08:47→20:40)
--- NOTE | 2023-10-24 09:32 | HO.PM.IMPN ---
Subjective Subjective Date of Service: 10/24/23 Interval History: Being followed for placement Is forgetful Requesting for Nicorette gums, asking for Tylenol for left shoulder pain, sore throat is better, tolerating diet no other acute issues overnight. Review of Systems All other system reviewed and negative, patient with poor insight. Physical Exam Vital Signs: Vital Signs: Last Vital Signs Temp 97.0 F 10/24/23 07:43 Pulse 57 10/24/23 07:43 Resp 16 10/24/23 07:43 BP 100/56 L 10/24/23 07:43 Pulse Ox 96 10/24/23 07:43 O2 Del Method Room Air 10/24/23 07:43 O2 Flow Rate 3 10/05/23 16:00 BMI result Body Mass Index 22.7 Const: Other: General resting comfortably in no acute distress. Neck supple no JVD. oral cavity :mild hyperemia right peritonsillar area, no pharyngeal erythema, normal appearing tonsils Small bruise left shoulder CVS regular rate rhythm, Respiratory lungs clear to auscultation, no respiratory distress, no wheeze, no rhonchi. Gastrointestinal abdomen soft, non tender, bowel sounds audible Extremities no edema. Neuro speech clear, no focal weakness. Poor insight Objective Data Active Medications Acetaminophen (Acetaminophen 325 Mg Tablet) 650 mg PO Q6H PRN PRN Reason: Pain, Mild (Pain Scale 1-3) Last Admin: 10/24/23 08:37 Dose: 650 mg Documented By: JOSEPH Benzocaine (Throat Lozenge, Medicated Lozenge) 1 lozenge MUCOUS MEM Q2H PRN PRN Reason: Sore Throat Benzonatate (Benzonatate 100 Mg Capsule) 100 mg PO TID PRN PRN Reason: Cough Buprenorphine/Naloxone (Buprenorphine/Naloxone 8/2 Mg Film) 1 film SUBLINGUAL BID [facility] Last Admin: 10/24/23 08:47 Dose: 1 film Documented By: JOSEPH Divalproex Sodium (Divalproex Sodium 250 Mg Tablet.Dr) 250 mg PO TID [facility] Last Admin: 10/24/23 08:37 Dose: 250 mg Documented By: JOSEPH Docusate Sodium (Docusate Sodium 100 Mg Capsule) 100 mg PO DAILY PRN PRN Reason: Constipation Magnesium Oxide (Magnesium Oxide 400 Mg Tablet) 400 mg PO BEDTIME [facility] Last Admin: 10/23/23 20:37 Dose: 400 mg Documented By: REE Multivitamins/Vitamin C (Multivitamin Tablet) 1 tab PO DAILY [facility] Last Admin: 10/24/23 08:37 Dose: 1 tab Documented By: JOSEPH Nicotine Polacrilex (Nicotine Polacrilex 2 Mg Gum) 4 mg BUCCAL 8XD PRN PRN Reason: nicotine addiction Last Admin: 10/23/23 17:22 Dose: 4 mg Documented By: REE Ondansetron HCl (Ondansetron Hcl 4 Mg/2 Ml Vial) 4 mg IVPUSH Q8H PRN PRN Reason: Nausea and Vomiting Ondansetron HCl (Ondansetron Odt 4 Mg Tab.Rapdis) 4 mg TRANSLINGU Q6H PRN PRN Reason: Nausea and Vomiting Quetiapine Fumarate (Quetiapine Fumarate 50 Mg Tablet) 50 mg PO TID [facility] Last Admin: 10/24/23 08:37 Dose: 50 mg Documented By: JOSEPH Quetiapine Fumarate (Quetiapine Fumarate 100 Mg Tablet) 100 mg PO Q6H PRN PRN Reason: agitation Last Admin: 10/20/23 22:19 Dose: 100 mg Documented By: RONALSK Labs 10/04/23 19:39 10/04/23 19:39 Assessment and Plan (1) Alcoholic Korsakoff syndrome: Status: Acute (2) Opioid use disorder: Status: Acute Plan This is 48yo F with OUD on Suboxone, AUD, Korsakoff syndrome initially presented to ED 09/19/23 with confusion, admitted for placement Left shoulder pain /bruise stable continue as needed analgesics Sore throat normal oropharyngeal examination continue lozenges Korsakoff syndrome continue quetiapine, and valproate. earlobe infection resolved OUD continue Suboxone. Tobacco use disorder continue Nicorette gum. VTE ppx SCDs/encourage ambulation dispo eventual LTC In my clinical judgment, the patient requires continued inpatient hospitalization for the following reasons: guardianship then placement. Quality Stroke Does the patient have a stroke diagnosis?: No VTE Prior VTE?: No VTE Risk Level:: Medical - low VTE Device Contraindication: Treatment Not Indicated VTE Drug Contraindication: Treatment Not Indicated
[2023-10-24] MEDS: Nicotine Polacrilex 2 MG GUM 4 MG BUCCAL ×2 (14:20→22:19)
[2023-10-24 15:13] VITALS: BP 126/67; PULSE 85; RESP 18; TEMP 36.2; O2SAT 98
[2023-10-24 19:02] VITALS: BP 110/64; PULSE 79; RESP 18; TEMP 36.4; O2SAT 96
[2023-10-24] MEDS: Magnesium Oxide 400 MG TABLET PO (20:40)
[2023-10-25 03:17] VITALS: BP 118/68; PULSE 70; RESP 18; TEMP 36.3; O2SAT 98
[2023-10-25] MEDS: Acetaminophen 325 MG TABLET 650 MG PO ×3 (05:14→17:47)
[2023-10-25] MEDS: QUEtiapine Fumarate 100 MG TABLET PO ×2 (05:14→18:28)
[2023-10-25] MEDS: Nicotine Polacrilex 2 MG GUM 4 MG BUCCAL ×5 (05:17→20:37)
[2023-10-25 07:26] VITALS: BP 142/62; PULSE 82; RESP 16; TEMP 36.2; O2SAT 98
[2023-10-25] MEDS: Multivitamin TABLET 1 TAB PO (08:53)
[2023-10-25] MEDS: QUEtiapine Fumarate 50 MG TABLET PO ×3 (08:53→20:34)
[2023-10-25] MEDS: Divalproex Sodium 250 MG TABLET.DR PO ×3 (08:53→20:34)
[2023-10-25] MEDS: Buprenorphine/Naloxone 8/2 mg FILM 1 FILM SUBLINGUAL ×2 (08:54→20:34)
--- NOTE | 2023-10-25 10:36 | MHC.CM.PN ---
PT AWAITING LTC PLACEMENT, GUARDIANSHIP DECREE IN CHART [facility] WORKING ON CHANGING INSURANCE TO STANDARD BROAD SNF REFERRAL PLACED
[2023-10-25 15:21] VITALS: BP 134/76; PULSE 99; RESP 18; TEMP 36.6; O2SAT 95
--- NOTE | 2023-10-25 15:43 | HO.PM.IMPN ---
Subjective Subjective Date of Service: 10/25/23 Interval History: Remains confused however cooperative. No acute issues overnight Review of Systems Denies chest pain Denies shortness of breath Denies nausea vomiting diarrhea Denies fever chills Physical Exam Vital Signs: Vital Signs: Last Vital Signs Temp 98 F 10/25/23 15:21 Pulse 99 10/25/23 15:21 Resp 18 10/25/23 15:21 BP 134/76 10/25/23 15:21 Pulse Ox 95 10/25/23 15:21 O2 Del Method Room Air 10/25/23 15:21 O2 Flow Rate 3 10/05/23 16:00 BMI result Body Mass Index 22.7 Const: Other: Awake alert confused Resp: Other: Clear to auscultation bilaterally no rales rhonchi or wheezes Cardio: Other: No S4; positive S1-S2; no S3 murmurs rubs or gallops GI: Other: Soft nontender nondistended normoactive bowel sounds Extrem: Other: No edema bilaterally Objective Data Active Medications Acetaminophen (Acetaminophen 325 Mg Tablet) 650 mg PO Q6H PRN PRN Reason: Pain, Mild (Pain Scale 1-3) Last Admin: 10/25/23 11:13 Dose: 650 mg Documented By: JOSEPH Benzocaine (Throat Lozenge, Medicated Lozenge) 1 lozenge MUCOUS MEM Q2H PRN PRN Reason: Sore Throat Benzonatate (Benzonatate 100 Mg Capsule) 100 mg PO TID PRN PRN Reason: Cough Buprenorphine/Naloxone (Buprenorphine/Naloxone 8/2 Mg Film) 1 film SUBLINGUAL BID [facility] Last Admin: 10/25/23 08:54 Dose: 1 film Documented By: KVNG Divalproex Sodium (Divalproex Sodium 250 Mg Tablet.Dr) 250 mg PO TID [facility] Last Admin: 10/25/23 14:18 Dose: 250 mg Documented By: JOSEPH Docusate Sodium (Docusate Sodium 100 Mg Capsule) 100 mg PO DAILY PRN PRN Reason: Constipation Magnesium Oxide (Magnesium Oxide 400 Mg Tablet) 400 mg PO BEDTIME [facility] Last Admin: 10/24/23 20:40 Dose: 400 mg Documented By: EVERT Multivitamins/Vitamin C (Multivitamin Tablet) 1 tab PO DAILY [facility] Last Admin: 10/25/23 08:53 Dose: 1 tab Documented By: KVNG Nicotine Polacrilex (Nicotine Polacrilex 2 Mg Gum) 4 mg BUCCAL 8XD PRN PRN Reason: nicotine addiction Last Admin: 10/25/23 13:42 Dose: 4 mg Documented By: JOSEPH Ondansetron HCl (Ondansetron Hcl 4 Mg/2 Ml Vial) 4 mg IVPUSH Q8H PRN PRN Reason: Nausea and Vomiting Ondansetron HCl (Ondansetron Odt 4 Mg Tab.Rapdis) 4 mg TRANSLINGU Q6H PRN PRN Reason: Nausea and Vomiting Quetiapine Fumarate (Quetiapine Fumarate 50 Mg Tablet) 50 mg PO TID [facility] Last Admin: 10/25/23 14:18 Dose: 50 mg Documented By: JOSEPH Quetiapine Fumarate (Quetiapine Fumarate 100 Mg Tablet) 100 mg PO Q6H PRN PRN Reason: agitation Last Admin: 10/25/23 05:14 Dose: 100 mg Documented By: COTEMA Labs 10/04/23 19:39 10/04/23 19:39 Assessment and Plan (1) Alcoholic Korsakoff syndrome: Status: Acute Plan Pt is a 48-year-old female with a PMH significant for opioid use disorder on Suboxone, alcohol use disorder, and Korsakoff's syndrome? who initially presented to the ED on?09/19/2023 looking for her Clement that she had not seen for a few days. Pt apparently had heard he was at this hospital so she called an ambulance to bring her here. Pt will be admitted to the hospital while awaiting guardianship and LTC placement. Guardianship hearing is scheduled for 10/09/2023. 1.Alcohol Korsakoff's syndrome -Continue Seroquel, Depakote 2.Opioid use disorder -Continue Suboxone Full Code Pt ambulatory. Pt will require a hospitalization pending guardianship and safe placement Quality Stroke Does the patient have a stroke diagnosis?: No VTE Prior VTE?: No VTE Risk Level:: Medical - low VTE Device Contraindication: Treatment Not Indicated VTE Drug Contraindication: Treatment Not Indicated
--- NOTE | 2023-10-25 18:14 | PC.NURSE ---
Pt remains cooperative no behavioral issues .
[2023-10-25 19:23] VITALS: BP 124/60; PULSE 90; RESP 18; TEMP 36.7; O2SAT 99
[2023-10-25] MEDS: Magnesium Oxide 400 MG TABLET PO (20:34)
[2023-10-26 03:33] VITALS: BP 103/61; PULSE 67; RESP 16; TEMP 36.1; O2SAT 96
[2023-10-26 07:17] VITALS: BP 102/57; PULSE 56; RESP 16; TEMP 36.3; O2SAT 98
[2023-10-26] MEDS: Acetaminophen 325 MG TABLET 650 MG PO ×3 (09:05→23:40)
[2023-10-26] MEDS: QUEtiapine Fumarate 50 MG TABLET PO ×3 (09:05→20:57)
[2023-10-26] MEDS: Divalproex Sodium 250 MG TABLET.DR PO ×3 (09:05→20:57)
[2023-10-26] MEDS: Buprenorphine/Naloxone 8/2 mg FILM 1 FILM SUBLINGUAL ×2 (09:05→20:57)
[2023-10-26] MEDS: Multivitamin TABLET 1 TAB PO (09:05)
--- NOTE | 2023-10-26 12:33 | HO.PM.IMPN ---
Subjective Subjective Date of Service: 10/26/23 Interval History: No acute issues overnight. Remains pleasantly confused. No behavioral issues Review of Systems Denies chest pain Denies shortness of breath Denies nausea vomiting diarrhea Denies fever chills Physical Exam Vital Signs: Vital Signs: Last Vital Signs Temp 97.3 F 10/26/23 07:17 Pulse 56 10/26/23 07:17 Resp 16 10/26/23 07:17 BP 102/57 L 10/26/23 07:17 Pulse Ox 98 10/26/23 07:17 O2 Del Method Room Air 10/26/23 07:17 O2 Flow Rate 3 10/05/23 16:00 BMI result Body Mass Index 22.7 Const: Other: Awake alert confused Resp: Other: Clear to auscultation bilaterally no rales rhonchi or wheezes Cardio: Other: No S4; positive S1-S2; no S3 murmurs rubs or gallops GI: Other: Soft nontender nondistended normoactive bowel sounds Extrem: Other: No edema bilaterally Objective Data Active Medications Acetaminophen (Acetaminophen 325 Mg Tablet) 650 mg PO Q6H PRN PRN Reason: Pain, Mild (Pain Scale 1-3) Last Admin: 10/26/23 09:05 Dose: 650 mg Documented By: EWA Benzocaine (Throat Lozenge, Medicated Lozenge) 1 lozenge MUCOUS MEM Q2H PRN PRN Reason: Sore Throat Benzonatate (Benzonatate 100 Mg Capsule) 100 mg PO TID PRN PRN Reason: Cough Buprenorphine/Naloxone (Buprenorphine/Naloxone 8/2 Mg Film) 1 film SUBLINGUAL BID [facility] Last Admin: 10/26/23 09:05 Dose: 1 film Documented By: EWA Divalproex Sodium (Divalproex Sodium 250 Mg Tablet.) 250 mg PO TID [facility] Last Admin: 10/26/23 09:05 Dose: 250 mg Documented By: EWA Docusate Sodium (Docusate Sodium 100 Mg Capsule) 100 mg PO DAILY PRN PRN Reason: Constipation Magnesium Oxide (Magnesium Oxide 400 Mg Tablet) 400 mg PO BEDTIME [facility] Last Admin: 10/25/23 20:34 Dose: 400 mg Documented By: JACKI Multivitamins/Vitamin C (Multivitamin Tablet) 1 tab PO DAILY [facility] Last Admin: 10/26/23 09:05 Dose: 1 tab Documented By: EWA Nicotine Polacrilex (Nicotine Polacrilex 2 Mg Gum) 4 mg BUCCAL 8XD PRN PRN Reason: nicotine addiction Last Admin: 10/25/23 20:37 Dose: 4 mg Documented By: JACKI Ondansetron HCl (Ondansetron Hcl 4 Mg/2 Ml Vial) 4 mg IVPUSH Q8H PRN PRN Reason: Nausea and Vomiting Ondansetron HCl (Ondansetron Odt 4 Mg Tab.Rapdis) 4 mg TRANSLINGU Q6H PRN PRN Reason: Nausea and Vomiting Quetiapine Fumarate (Quetiapine Fumarate 50 Mg Tablet) 50 mg PO TID [facility] Last Admin: 10/26/23 09:05 Dose: 50 mg Documented By: EWA Quetiapine Fumarate (Quetiapine Fumarate 100 Mg Tablet) 100 mg PO Q6H PRN PRN Reason: agitation Last Admin: 10/25/23 18:28 Dose: 100 mg Documented By: GRACIELAINNM Labs 10/04/23 19:39 10/04/23 19:39 Assessment and Plan (1) Alcoholic Korsakoff syndrome: Status: Acute Plan Pt is a 48-year-old female with a PMH significant for opioid use disorder on Suboxone, alcohol use disorder, and Korsakoff's syndrome? who initially presented to the ED on?09/19/2023 looking for her Clement that she had not seen for a few days. Pt apparently had heard he was at this hospital so she called an ambulance to bring her here. Pt will be admitted to the hospital while awaiting guardianship and LTC placement. Guardianship hearing is scheduled for 10/09/2023. 1.Alcohol Korsakoff's syndrome -Continue Seroquel, Depakote -no behavioral issues 2.Opioid use disorder -Continue Suboxone Full Code Pt ambulatory. Pt will require a hospitalization pending guardianship and safe placement Quality Stroke Does the patient have a stroke diagnosis?: No VTE Prior VTE?: No VTE Risk Level:: Medical - low VTE Device Contraindication: Treatment Not Indicated VTE Drug Contraindication: Treatment Not Indicated
[2023-10-26 15:12] VITALS: BP 109/74; PULSE 75; RESP 16; TEMP 36.6; O2SAT 99
[2023-10-26] MEDS: Nicotine Polacrilex 2 MG GUM 4 MG BUCCAL ×3 (15:15→23:42)
[2023-10-26] MEDS: Magnesium Oxide 400 MG TABLET PO (20:57)
[2023-10-26] MEDS: QUEtiapine Fumarate 100 MG TABLET PO (23:40)
[2023-10-27 03:32] VITALS: BP 100/53; PULSE 71; RESP 16; TEMP 36.9; O2SAT 97
[2023-10-27] MEDS: Divalproex Sodium 250 MG TABLET.DR PO ×3 (09:14→20:33)
[2023-10-27] MEDS: QUEtiapine Fumarate 50 MG TABLET PO ×3 (09:14→20:33)
[2023-10-27] MEDS: Buprenorphine/Naloxone 8/2 mg FILM 1 FILM SUBLINGUAL ×2 (09:14→20:33)
[2023-10-27] MEDS: Multivitamin TABLET 1 TAB PO (09:14)
[2023-10-27] MEDS: Nicotine Polacrilex 2 MG GUM 4 MG BUCCAL ×2 (09:17→15:09)
--- NOTE | 2023-10-27 12:04 | P.PNIM_ITS ---
Subjective Subjective Date of Service: 10/27/23 Interval History: No acute issues overnight. No acute behavior issues Review of Systems Denies chest pain Denies shortness of breath Denies nausea vomiting diarrhea Denies fever chills Physical Exam 2 Vital Signs: Vital Signs: Last Vital Signs Temp 98.5 F 10/27/23 03:32 Pulse 71 10/27/23 03:32 Resp 16 10/27/23 03:32 BP 100/53 L 10/27/23 03:32 Pulse Ox 97 10/27/23 03:32 O2 Del Method Room Air 10/27/23 03:32 O2 Flow Rate 3 10/05/23 16:00 BMI result Body Mass Index 22.7 Const: Other: Awake alert confused Resp: Other: Clear to auscultation bilaterally no rales rhonchi or wheezes Cardio: Other: No S4; positive S1-S2; no S3 murmurs rubs or gallops GI: Other: Soft nontender nondistended normoactive bowel sounds Extrem: Other: No edema bilaterally Objective Data Active Medications Acetaminophen (Acetaminophen 325 Mg Tablet) 650 mg PO Q6H PRN PRN Reason: Pain, Mild (Pain Scale 1-3) Last Admin: 10/26/23 23:40 Dose: 650 mg Documented By: JACKI Benzocaine (Throat Lozenge, Medicated Lozenge) 1 lozenge MUCOUS MEM Q2H PRN PRN Reason: Sore Throat Benzonatate (Benzonatate 100 Mg Capsule) 100 mg PO TID PRN PRN Reason: Cough Buprenorphine/Naloxone (Buprenorphine/Naloxone 8/2 Mg Film) 1 film SUBLINGUAL BID [facility] Last Admin: 10/27/23 09:14 Dose: 1 film Documented By: RAFAEL Divalproex Sodium (Divalproex Sodium 250 Mg Tablet.Dr) 250 mg PO TID [facility] Last Admin: 10/27/23 09:14 Dose: 250 mg Documented By: RAFAEL Docusate Sodium (Docusate Sodium 100 Mg Capsule) 100 mg PO DAILY PRN PRN Reason: Constipation Magnesium Oxide (Magnesium Oxide 400 Mg Tablet) 400 mg PO BEDTIME [facility] Last Admin: 10/26/23 20:57 Dose: 400 mg Documented By: JACKI Multivitamins/Vitamin C (Multivitamin Tablet) 1 tab PO DAILY [facility] Last Admin: 10/27/23 09:14 Dose: 1 tab Documented By: RAFAEL Nicotine Polacrilex (Nicotine Polacrilex 2 Mg Gum) 4 mg BUCCAL 8XD PRN PRN Reason: nicotine addiction Last Admin: 10/27/23 09:17 Dose: 4 mg Documented By: RAFAEL Ondansetron HCl (Ondansetron Hcl 4 Mg/2 Ml Vial) 4 mg IVPUSH Q8H PRN PRN Reason: Nausea and Vomiting Ondansetron HCl (Ondansetron Odt 4 Mg Tab.Rapdis) 4 mg TRANSLINGU Q6H PRN PRN Reason: Nausea and Vomiting Quetiapine Fumarate (Quetiapine Fumarate 50 Mg Tablet) 50 mg PO TID [facility] Last Admin: 10/27/23 09:14 Dose: 50 mg Documented By: RAFAEL Quetiapine Fumarate (Quetiapine Fumarate 100 Mg Tablet) 100 mg PO Q6H PRN PRN Reason: agitation Last Admin: 10/26/23 23:40 Dose: 100 mg Documented By: JACIK Labs 10/04/23 19:39 10/04/23 19:39 Assessment and Plan (1) Alcoholic Korsakoff syndrome: Status: Acute Plan Pt is a 48-year-old female with a PMH significant for opioid use disorder on Suboxone, alcohol use disorder, and Korsakoff's syndrome? who initially presented to the ED on?09/19/2023 looking for her Clement that she had not seen for a few days. Pt apparently had heard he was at this hospital so she called an ambulance to bring her here. Pt will be admitted to the hospital while awaiting guardianship and LTC placement. Guardianship hearing is scheduled for 10/09/2023. 1.Alcohol Korsakoff's syndrome -Continue Seroquel, Depakote -no behavioral issues 2.Opioid use disorder -Continue Suboxone Full Code Pt ambulatory. Pt will require a hospitalization pending guardianship and safe placement Quality Stroke Does the patient have a stroke diagnosis?: No VTE Prior VTE?: No VTE Risk Level:: Medical - low VTE Device Contraindication: Treatment Not Indicated VTE Drug Contraindication: Treatment Not Indicated
[2023-10-27 15:01] VITALS: BP 104/61; PULSE 91; RESP 20; TEMP 36.4; O2SAT 96
[2023-10-27] MEDS: Magnesium Oxide 400 MG TABLET PO (20:33)
[2023-10-28] MEDS: Nicotine Polacrilex 2 MG GUM 4 MG BUCCAL ×4 (00:06→20:53)
[2023-10-28 04:00] VITALS: BP 97/56; PULSE 59; RESP 16; TEMP 36.6; O2SAT 97
[2023-10-28 08:00] VITALS: BP 88/50; PULSE 57; RESP 16; TEMP 36.1; O2SAT 98
[2023-10-28] MEDS: Buprenorphine/Naloxone 8/2 mg FILM 1 FILM SUBLINGUAL ×2 (09:26→20:47)
[2023-10-28] MEDS: Divalproex Sodium 250 MG TABLET.DR PO ×3 (09:27→20:47)
[2023-10-28] MEDS: Multivitamin TABLET 1 TAB PO (09:27)
[2023-10-28] MEDS: QUEtiapine Fumarate 50 MG TABLET PO ×3 (09:27→20:47)
--- NOTE | 2023-10-28 11:00 | MHC.CM.PN ---
DC PLAN REMAINS LTC. NO BED OFFERS AT THIS TIME. FS COORDINATING W/ SISTER/GUARDIAN TO CHANGE INSURANCE TO STD. CM WILL CONTINUE TO FOLLOW.
[2023-10-28] MEDS: Acetaminophen 325 MG TABLET 650 MG PO ×2 (12:07→18:28)
--- NOTE | 2023-10-28 13:43 | P.PNIM_ITS ---
Subjective Subjective Date of Service: 10/28/23 Interval History: No acute issues overnight. No behavioral problems Review of Systems Denies chest pain Denies shortness of breath Denies nausea vomiting diarrhea Denies fever chills Physical Exam 2 Vital Signs: Vital Signs: Last Vital Signs Temp 97.0 F 10/28/23 08:00 Pulse 57 10/28/23 08:00 Resp 16 10/28/23 08:00 BP 88/50 L 10/28/23 08:00 Pulse Ox 98 10/28/23 08:00 O2 Del Method Room Air 10/28/23 08:00 O2 Flow Rate 3 10/05/23 16:00 BMI result Body Mass Index 22.7 Const: Other: Awake alert confused Resp: Other: Clear to auscultation bilaterally no rales rhonchi or wheezes Cardio: Other: No S4; positive S1-S2; no S3 murmurs rubs or gallops GI: Other: Soft nontender nondistended normoactive bowel sounds Extrem: Other: No edema bilaterally Objective Data Active Medications Acetaminophen (Acetaminophen 325 Mg Tablet) 650 mg PO Q6H PRN PRN Reason: Pain, Mild (Pain Scale 1-3) Last Admin: 10/28/23 12:07 Dose: 650 mg Documented By: YUMIKO Benzocaine (Throat Lozenge, Medicated Lozenge) 1 lozenge MUCOUS MEM Q2H PRN PRN Reason: Sore Throat Benzonatate (Benzonatate 100 Mg Capsule) 100 mg PO TID PRN PRN Reason: Cough Buprenorphine/Naloxone (Buprenorphine/Naloxone 8/2 Mg Film) 1 film SUBLINGUAL BID [facility] Last Admin: 10/28/23 09:26 Dose: 1 film Documented By: YUMIKO Divalproex Sodium (Divalproex Sodium 250 Mg Tablet.Dr) 250 mg PO TID [facility] Last Admin: 10/28/23 09:27 Dose: 250 mg Documented By: YUMIKO Docusate Sodium (Docusate Sodium 100 Mg Capsule) 100 mg PO DAILY PRN PRN Reason: Constipation Magnesium Oxide (Magnesium Oxide 400 Mg Tablet) 400 mg PO BEDTIME [facility] Last Admin: 10/27/23 20:33 Dose: 400 mg Documented By: LARISBaldo Multivitamins/Vitamin C (Multivitamin Tablet) 1 tab PO DAILY [facility] Last Admin: 10/28/23 09:27 Dose: 1 tab Documented By: YUMIKO Nicotine Polacrilex (Nicotine Polacrilex 2 Mg Gum) 4 mg BUCCAL 8XD PRN PRN Reason: nicotine addiction Last Admin: 10/28/23 12:08 Dose: 4 mg Documented By: YUMIKO Ondansetron HCl (Ondansetron Hcl 4 Mg/2 Ml Vial) 4 mg IVPUSH Q8H PRN PRN Reason: Nausea and Vomiting Ondansetron HCl (Ondansetron Odt 4 Mg Tab.Rapdis) 4 mg TRANSLINGU Q6H PRN PRN Reason: Nausea and Vomiting Quetiapine Fumarate (Quetiapine Fumarate 50 Mg Tablet) 50 mg PO TID [facility] Last Admin: 10/28/23 09:27 Dose: 50 mg Documented By: YUMIKO Quetiapine Fumarate (Quetiapine Fumarate 100 Mg Tablet) 100 mg PO Q6H PRN PRN Reason: agitation Last Admin: 10/26/23 23:40 Dose: 100 mg Documented By: JACKI Labs 10/04/23 19:39 10/04/23 19:39 Assessment and Plan (1) Alcoholic Korsakoff syndrome: Status: Acute Plan Pt is a 48-year-old female with a PMH significant for opioid use disorder on Suboxone, alcohol use disorder, and Korsakoff's syndrome? who initially presented to the ED on?09/19/2023 looking for her Clement that she had not seen for a few days. Pt apparently had heard he was at this hospital so she called an ambulance to bring her here. Pt will be admitted to the hospital while awaiting guardianship and LTC placement. Guardianship hearing is scheduled for 10/09/2023. 1.Alcohol Korsakoff's syndrome -Continue Seroquel, Depakote -continue to be without aggressive behavior 2.Opioid use disorder -Continue Suboxone Full Code Pt ambulatory. Pt will require a hospitalization pending guardianship and safe placement Quality Stroke Does the patient have a stroke diagnosis?: No VTE Prior VTE?: No VTE Risk Level:: Medical - low VTE Device Contraindication: Treatment Not Indicated VTE Drug Contraindication: Treatment Not Indicated
[2023-10-28 15:56] VITALS: BP 109/59; PULSE 80; RESP 20; TEMP 36.9; O2SAT 97
[2023-10-28 19:18] VITALS: BP 109/62; PULSE 88; RESP 18; TEMP 37.1; O2SAT 97
[2023-10-28] MEDS: Magnesium Oxide 400 MG TABLET PO (20:47)
[2023-10-28] MEDS: QUEtiapine Fumarate 100 MG TABLET PO (23:32)
[2023-10-29] MEDS: Acetaminophen 325 MG TABLET 650 MG PO ×3 (00:17→22:06)
[2023-10-29] MEDS: Nicotine Polacrilex 2 MG GUM 4 MG BUCCAL ×6 (00:18→23:46)
[2023-10-29 03:10] VITALS: BP 98/55; PULSE 61; RESP 18; TEMP 36.7; O2SAT 98
[2023-10-29] MEDS: Buprenorphine/Naloxone 8/2 mg FILM 1 FILM SUBLINGUAL ×2 (09:09→20:46)
[2023-10-29] MEDS: QUEtiapine Fumarate 50 MG TABLET PO ×3 (09:09→20:54)
[2023-10-29] MEDS: Divalproex Sodium 250 MG TABLET.DR PO ×3 (09:09→20:54)
[2023-10-29] MEDS: Multivitamin TABLET 1 TAB PO (09:09)
[2023-10-29 09:17] VITALS: BP 117/61; PULSE 62; RESP 16; TEMP 36.2; O2SAT 96
--- NOTE | 2023-10-29 11:26 | P.PNIM_ITS ---
Subjective Subjective Date of Service: 10/29/23 Interval History: Being followed for placement No events overnight Tolerating diet denies nausea, no vomiting, no abdominal pain or diarrhea. No fevers, no chills. Review of Systems All other system reviewed and negative Physical Exam 2 Vital Signs: Vital Signs: Last Vital Signs Temp 97.2 F 10/29/23 09:17 Pulse 62 10/29/23 09:17 Resp 16 10/29/23 09:17 BP 117/61 10/29/23 09:17 Pulse Ox 96 10/29/23 09:17 O2 Del Method Room Air 10/29/23 09:17 O2 Flow Rate 3 10/05/23 16:00 BMI result Body Mass Index 22.7 Const: Other: General resting comfortably in no acute distress. Neck supple no JVD. CVS regular rate rhythm, Respiratory lungs clear to auscultation, no respiratory distress, no wheeze, no rhonchi. Gastrointestinal abdomen soft, non tender, bowel sounds audible Extremities no edema. Neuro speech clear, no focal weakness. Poor insight Objective Data Active Medications Acetaminophen (Acetaminophen 325 Mg Tablet) 650 mg PO Q6H PRN PRN Reason: Pain, Mild (Pain Scale 1-3) Last Admin: 10/29/23 00:17 Dose: 650 mg Documented By: NERY Benzocaine (Throat Lozenge, Medicated Lozenge) 1 lozenge MUCOUS MEM Q2H PRN PRN Reason: Sore Throat Benzonatate (Benzonatate 100 Mg Capsule) 100 mg PO TID PRN PRN Reason: Cough Buprenorphine/Naloxone (Buprenorphine/Naloxone 8/2 Mg Film) 1 film SUBLINGUAL BID [facility] Last Admin: 10/29/23 09:09 Dose: 1 film Documented By: JOSEPH Divalproex Sodium (Divalproex Sodium 250 Mg Tablet.Dr) 250 mg PO TID [facility] Last Admin: 10/29/23 09:09 Dose: 250 mg Documented By: JOSEPH Docusate Sodium (Docusate Sodium 100 Mg Capsule) 100 mg PO DAILY PRN PRN Reason: Constipation Magnesium Oxide (Magnesium Oxide 400 Mg Tablet) 400 mg PO BEDTIME [facility] Last Admin: 10/28/23 20:47 Dose: 400 mg Documented By: NERY Multivitamins/Vitamin C (Multivitamin Tablet) 1 tab PO DAILY [facility] Last Admin: 10/29/23 09:09 Dose: 1 tab Documented By: JOSEPH Nicotine Polacrilex (Nicotine Polacrilex 2 Mg Gum) 4 mg BUCCAL 8XD PRN PRN Reason: nicotine addiction Last Admin: 10/29/23 11:18 Dose: 4 mg Documented By: JOSEPH Ondansetron HCl (Ondansetron Hcl 4 Mg/2 Ml Vial) 4 mg IVPUSH Q8H PRN PRN Reason: Nausea and Vomiting Ondansetron HCl (Ondansetron Odt 4 Mg Tab.Rapdis) 4 mg TRANSLINGU Q6H PRN PRN Reason: Nausea and Vomiting Quetiapine Fumarate (Quetiapine Fumarate 50 Mg Tablet) 50 mg PO TID [facility] Last Admin: 10/29/23 09:09 Dose: 50 mg Documented By: JOSEPH Quetiapine Fumarate (Quetiapine Fumarate 100 Mg Tablet) 100 mg PO Q6H PRN PRN Reason: agitation Last Admin: 10/28/23 23:32 Dose: 100 mg Documented By: NERY Domínguez 10/04/23 19:39 10/04/23 19:39 Assessment and Plan (1) Alcoholic Korsakoff syndrome: Status: Acute Plan Pt is a 48-year-old female with a PMH significant for opioid use disorder on Suboxone, alcohol use disorder, and Korsakoff's syndrome? who initially presented to the ED on?09/19/2023 looking for her Clement that she had not seen for a few days. Pt apparently had heard he was at this hospital so she called an ambulance to bring her here. Pt will be admitted to the hospital while awaiting guardianship and LTC placement. Guardianship hearing is scheduled for 10/09/2023. 1.Alcohol Korsakoff's syndrome -Continue Seroquel, Depakote -no behavioral issues noted 2.Opioid use disorder -Continue Suboxone Full Code Pt. ambulatory. Pt. will require a hospitalization pending guardianship and safe placement Quality Stroke Does the patient have a stroke diagnosis?: No VTE Prior VTE?: No VTE Risk Level:: Medical - low VTE Device Contraindication: Treatment Not Indicated VTE Drug Contraindication: Treatment Not Indicated
[2023-10-29 15:29] VITALS: BP 118/70; PULSE 98; RESP 18; TEMP 37; O2SAT 97
[2023-10-29 19:05] VITALS: BP 114/69; PULSE 93; RESP 16; TEMP 36.2; O2SAT 97
[2023-10-29] MEDS: Magnesium Oxide 400 MG TABLET PO (20:54)
[2023-10-29] MEDS: QUEtiapine Fumarate 100 MG TABLET PO (22:06)
[2023-10-30 03:06] VITALS: BP 114/64; PULSE 95; RESP 18; TEMP 36.4; O2SAT 97
[2023-10-30] MEDS: Acetaminophen 325 MG TABLET 650 MG PO ×2 (04:03→21:42)
[2023-10-30] MEDS: Nicotine Polacrilex 2 MG GUM 4 MG BUCCAL ×3 (04:46→21:41)
[2023-10-30] MEDS: Buprenorphine/Naloxone 8/2 mg FILM 1 FILM SUBLINGUAL ×2 (07:01→21:41)
[2023-10-30] MEDS: QUEtiapine Fumarate 50 MG TABLET PO ×3 (07:01→21:42)
[2023-10-30] MEDS: Divalproex Sodium 250 MG TABLET.DR PO ×3 (07:01→21:42)
[2023-10-30] MEDS: Multivitamin TABLET 1 TAB PO (07:01)
[2023-10-30 08:00] VITALS: BP 129/76; PULSE 62; RESP 18; TEMP 36.1; O2SAT 98
--- NOTE | 2023-10-30 10:49 | P.PNIM_ITS ---
Subjective Subjective Date of Service: 10/30/23 Interval History: Resting comfortably, feeling tired offers no acute complaints, tolerating diet no nausea, no vomiting, no abdominal pain, no acute events overnight. Review of Systems All other system reviewed and negative. Physical Exam 2 Vital Signs: Vital Signs: Last Vital Signs Temp 96.9 F 10/30/23 08:00 Pulse 62 10/30/23 08:00 Resp 18 10/30/23 08:00 BP 129/76 10/30/23 08:00 Pulse Ox 98 10/30/23 08:00 O2 Del Method Room Air 10/30/23 08:00 O2 Flow Rate 3 10/05/23 16:00 BMI result Body Mass Index 22.7 Const: Other: General resting co mfortably in no ac three affiliated distress. Ne ck supple no JVD. CVS regular rate rhythm, Respirato ry lungs clear to auscultation, no r espiratory distres s, no wheeze, no r honchi. Gastrointe stinal abdomen sof t, non tender, bow el sounds audible Extremities no sandhya ma. Neuro speech clear, no focal w eakness. Poor insi ght Objective Data Active Medications Acetaminophen (Acetaminophen 325 Mg Tablet) 650 mg PO Q6H PRN PRN Reason: Pain, Mild (Pain Scale 1-3) Last Admin: 10/30/23 04:03 Dose: 650 mg Documented By: JUAN Benzocaine (Throat Lozenge, Medicated Lozenge) 1 lozenge MUCOUS MEM Q2H PRN PRN Reason: Sore Throat Benzonatate (Benzonatate 100 Mg Capsule) 100 mg PO TID PRN PRN Reason: Cough Buprenorphine/Naloxone (Buprenorphine/Naloxone 8/2 Mg Film) 1 film SUBLINGUAL BID [facility] Last Admin: 10/30/23 07:01 Dose: 1 film Documented By: CHRISTOFER Divalproex Sodium (Divalproex Sodium 250 Mg Tablet.) 250 mg PO TID [facility] Last Admin: 10/30/23 07:01 Dose: 250 mg Documented By: CHRISTOFER Docusate Sodium (Docusate Sodium 100 Mg Capsule) 100 mg PO DAILY PRN PRN Reason: Constipation Magnesium Oxide (Magnesium Oxide 400 Mg Tablet) 400 mg PO BEDTIME [facility] Last Admin: 10/29/23 20:54 Dose: 400 mg Documented By: JUAN Multivitamins/Vitamin C (Multivitamin Tablet) 1 tab PO DAILY [facility] Last Admin: 10/30/23 07:01 Dose: 1 tab Documented By: CHRISTOFER Nicotine Polacrilex (Nicotine Polacrilex 2 Mg Gum) 4 mg BUCCAL 8XD PRN PRN Reason: nicotine addiction Last Admin: 10/30/23 04:46 Dose: 4 mg Documented By: JUAN Ondansetron HCl (Ondansetron Hcl 4 Mg/2 Ml Vial) 4 mg IVPUSH Q8H PRN PRN Reason: Nausea and Vomiting Ondansetron HCl (Ondansetron Odt 4 Mg Tab.Rapdis) 4 mg TRANSLINGU Q6H PRN PRN Reason: Nausea and Vomiting Quetiapine Fumarate (Quetiapine Fumarate 50 Mg Tablet) 50 mg PO TID [facility] Last Admin: 10/30/23 07:01 Dose: 50 mg Documented By: CHRISTOFER Quetiapine Fumarate (Quetiapine Fumarate 100 Mg Tablet) 100 mg PO Q6H PRN PRN Reason: agitation Last Admin: 10/29/23 22:06 Dose: 100 mg Documented By: JUAN Labs 10/04/23 19:39 10/04/23 19:39 Assessment and Plan (1) Alcoholic Korsakoff syndrome: Status: Acute Plan Pt is a 48-year-old female with a PMH significant for opioid use disorder on Suboxone, alcohol use disorder, and Korsakoff's syndrome? who initially presented to the ED on?09/19/2023 looking for her Clement that she had not seen for a few days. Pt apparently had heard he was at this hospital so she called an ambulance to bring her here. Pt will be admitted to the hospital while awaiting guardianship and LTC placement. Guardianship hearing is scheduled for 10/09/2023. 1.Alcohol Korsakoff's syndrome -Continue Seroquel, Depakote -no behavioral issues noted 2.Opioid use disorder -Continue Suboxone Full Code Pt. ambulatory. Pt. will require a hospitalization pending guardianship and safe placement Quality Stroke Does the patient have a stroke diagnosis?: No VTE Prior VTE?: No VTE Risk Level:: Medical - low VTE Device Contraindication: Treatment Not Indicated VTE Drug Contraindication: Treatment Not Indicated
--- NOTE | 2023-10-30 13:39 | MHC.CM.PN ---
Addendum entered by Jihan Butler RN 10/30/23 16:01: Per FS, sister/guardian/Conchis reports she does not have access to bank records. CM clarified - patient does not have a bank account, has not had bank account in > 5 years. Only income is social security, which is deposited onto a direct express card. FS aware and will work with guardian to submit application. CM confirmed w/ guardian - plan is LTC. CM will continue to follow. Original Note: CM CONTINUES SEARCH FOR LTC BED, PENDING INSURANCE CHANGE TO [employer], SISTER TO BRING BANK STATEMENTS TO FS.
[2023-10-30 15:40] VITALS: BP 95/54; PULSE 70; RESP 18; TEMP 36.3; O2SAT 96
[2023-10-30 19:24] VITALS: BP 107/62; PULSE 99; RESP 18; TEMP 36.6; O2SAT 96
[2023-10-30] MEDS: Magnesium Oxide 400 MG TABLET PO (21:42)
[2023-10-30] MEDS: QUEtiapine Fumarate 100 MG TABLET PO (21:42)
[2023-10-31] MEDS: Nicotine Polacrilex 2 MG GUM 4 MG BUCCAL ×3 (00:20→14:10)
[2023-10-31 03:51] VITALS: BP 115/71; PULSE 76; RESP 18; TEMP 36.1; O2SAT 97
[2023-10-31] MEDS: Acetaminophen 325 MG TABLET 650 MG PO ×2 (04:08→14:10)
[2023-10-31 07:06] VITALS: BP 97/53; PULSE 68; RESP 16; TEMP 36.4; O2SAT 97
[2023-10-31] MEDS: Multivitamin TABLET 1 TAB PO (08:31)
[2023-10-31] MEDS: Divalproex Sodium 250 MG TABLET.DR PO ×3 (08:31→19:15)
[2023-10-31] MEDS: QUEtiapine Fumarate 50 MG TABLET PO ×3 (08:31→19:15)
[2023-10-31] MEDS: Buprenorphine/Naloxone 8/2 mg FILM 1 FILM SUBLINGUAL ×2 (08:31→19:15)
--- NOTE | 2023-10-31 11:08 | HO.PM.IMPN ---
Subjective Subjective Date of Service: 10/31/23 Interval History: Being followed for placement No acute issues overnight, tolerating diet with no nausea, no vomiting, no abdominal pain. Review of Systems All other system reviewed and negative. Physical Exam Vital Signs: Vital Signs: Last Vital Signs Temp 97.6 F 10/31/23 07:06 Pulse 68 10/31/23 07:06 Resp 16 10/31/23 07:06 BP 97/53 L 10/31/23 07:06 Pulse Ox 97 10/31/23 07:06 O2 Del Method Room Air 10/31/23 07:06 O2 Flow Rate 3 10/05/23 16:00 BMI result Body Mass Index 22.7 Const: Other: General resting comfortably in no acute distress. Neck supple no JVD. CVS regular rate rhythm, Respiratory lungs clear to auscultation, no respiratory distress, no wheeze, no rhonchi. Gastrointestinal abdomen soft, non tender, bowel sounds audible Extremities no edema. Neuro speech clear, no focal weakness. Poor insight Objective Data Active Medications Acetaminophen (Acetaminophen 325 Mg Tablet) 650 mg PO Q6H PRN PRN Reason: Pain, Mild (Pain Scale 1-3) Last Admin: 10/31/23 04:08 Dose: 650 mg Documented By: JOE Benzocaine (Throat Lozenge, Medicated Lozenge) 1 lozenge MUCOUS MEM Q2H PRN PRN Reason: Sore Throat Benzonatate (Benzonatate 100 Mg Capsule) 100 mg PO TID PRN PRN Reason: Cough Buprenorphine/Naloxone (Buprenorphine/Naloxone 8/2 Mg Film) 1 film SUBLINGUAL BID [facility] Last Admin: 10/31/23 08:31 Dose: 1 film Documented By: SILVESTRE Divalproex Sodium (Divalproex Sodium 250 Mg Tablet.Dr) 250 mg PO TID [facility] Last Admin: 10/31/23 08:31 Dose: 250 mg Documented By: SILVESTRE Docusate Sodium (Docusate Sodium 100 Mg Capsule) 100 mg PO DAILY PRN PRN Reason: Constipation Magnesium Oxide (Magnesium Oxide 400 Mg Tablet) 400 mg PO BEDTIME [facility] Last Admin: 10/30/23 21:42 Dose: 400 mg Documented By: COTEMA Multivitamins/Vitamin C (Multivitamin Tablet) 1 tab PO DAILY [facility] Last Admin: 03/07/24 08:31 Dose: 1 tab Documented By: SILVESTRE Nicotine Polacrilex (Nicotine Polacrilex 2 Mg Gum) 4 mg BUCCAL 8XD PRN PRN Reason: nicotine addiction Last Admin: 10/31/23 04:11 Dose: 4 mg Documented By: JOE Ondansetron HCl (Ondansetron Hcl 4 Mg/2 Ml Vial) 4 mg IVPUSH Q8H PRN PRN Reason: Nausea and Vomiting Ondansetron HCl (Ondansetron Odt 4 Mg Tab.Rapdis) 4 mg TRANSLINGU Q6H PRN PRN Reason: Nausea and Vomiting Quetiapine Fumarate (Quetiapine Fumarate 50 Mg Tablet) 50 mg PO TID [facility] Last Admin: 10/31/23 08:31 Dose: 50 mg Documented By: SILVESTRE Quetiapine Fumarate (Quetiapine Fumarate 100 Mg Tablet) 100 mg PO Q6H PRN PRN Reason: agitation Last Admin: 10/30/23 21:42 Dose: 100 mg Documented By: COTEMA Labs 10/04/23 19:39 10/04/23 19:39 Assessment and Plan (1) Alcoholic Korsakoff syndrome: Status: Acute Plan Pt is a 48-year-old female with a PMH significant for opioid use disorder on Suboxone, alcohol use disorder, and Korsakoff's syndrome? who initially presented to the ED on?09/19/2023 looking for her Clement that she had not seen for a few days. Pt apparently had heard he was at this hospital so she called an ambulance to bring her here. Pt will be admitted to the hospital while awaiting guardianship and LTC placement. Guardianship hearing is scheduled for 10/09/2023. 1.Alcohol Korsakoff's syndrome -Continue Seroquel, Depakote -no behavioral issues noted 2.Opioid use disorder -Continue Suboxone Full Code Pt. ambulatory. Pt. will require a hospitalization pending guardianship and safe placement Quality Stroke Does the patient have a stroke diagnosis?: No VTE Prior VTE?: No VTE Risk Level:: Medical - low VTE Device Contraindication: Treatment Not Indicated VTE Drug Contraindication: Treatment Not Indicated
[2023-10-31 16:00] VITALS: BP 91/55; PULSE 78; RESP 14; TEMP 36.8; O2SAT 96
[2023-10-31] MEDS: Magnesium Oxide 400 MG TABLET PO (19:15)
[2023-10-31 19:50] VITALS: BP 93/50; PULSE 65; RESP 20; TEMP 36.1; O2SAT 97
[2023-11-01 03:39] VITALS: BP 100/58; PULSE 62; RESP 16; TEMP 36.1; O2SAT 97
[2023-11-01 07:13] VITALS: BP 94/52; PULSE 60; RESP 16; TEMP 36.2; O2SAT 96
[2023-11-01] MEDS: Buprenorphine/Naloxone 8/2 mg FILM 1 FILM SUBLINGUAL ×2 (08:44→20:18)
[2023-11-01] MEDS: Divalproex Sodium 250 MG TABLET.DR PO ×3 (08:44→20:18)
[2023-11-01] MEDS: Multivitamin TABLET 1 TAB PO (08:44)
[2023-11-01] MEDS: QUEtiapine Fumarate 50 MG TABLET PO ×3 (08:44→20:18)
--- NOTE | 2023-11-01 10:59 | P.PNIM_ITS ---
Subjective Subjective Date of Service: 11/01/23 Interval History: Awake and alert offers no acute complaints, tolerating diet, no acute events overnight.. Review of Systems All other system reviewed and negative. Physical Exam 2 Vital Signs: Vital Signs: Last Vital Signs Temp 97.2 F 11/01/23 07:13 Pulse 60 11/01/23 07:13 Resp 16 11/01/23 07:13 BP 94/52 L 11/01/23 07:13 Pulse Ox 96 11/01/23 07:13 O2 Del Method Room Air 11/01/23 07:13 O2 Flow Rate 3 10/05/23 16:00 BMI result Body Mass Index 22.7 Const: Other: General resting comfortably in no acute distress. Neck supple no JVD. CVS regular rate rhythm, Respiratory lungs clear to auscultation, no respiratory distress, no wheeze, no rhonchi. Gastrointestinal abdomen soft, non tender, bowel sounds audible Extremities no edema. Neuro speech clear, no focal weakness. Poor insight Objective Data Active Medications Acetaminophen (Acetaminophen 325 Mg Tablet) 650 mg PO Q6H PRN PRN Reason: Pain, Mild (Pain Scale 1-3) Last Admin: 10/31/23 14:10 Dose: 650 mg Documented By: SILVESTRE Benzocaine (Throat Lozenge, Medicated Lozenge) 1 lozenge MUCOUS MEM Q2H PRN PRN Reason: Sore Throat Benzonatate (Benzonatate 100 Mg Capsule) 100 mg PO TID PRN PRN Reason: Cough Buprenorphine/Naloxone (Buprenorphine/Naloxone 8/2 Mg Film) 1 film SUBLINGUAL BID [facility] Last Admin: 11/01/23 08:44 Dose: 1 film Documented By: ANNA Divalproex Sodium (Divalproex Sodium 250 Mg Tablet.Dr) 250 mg PO TID [facility] Last Admin: 11/01/23 08:44 Dose: 250 mg Documented By: ANNA Docusate Sodium (Docusate Sodium 100 Mg Capsule) 100 mg PO DAILY PRN PRN Reason: Constipation Magnesium Oxide (Magnesium Oxide 400 Mg Tablet) 400 mg PO BEDTIME [facility] Last Admin: 10/31/23 19:15 Dose: 400 mg Documented By: CHRISTOFER Multivitamins/Vitamin C (Multivitamin Tablet) 1 tab PO DAILY [facility] Last Admin: 11/01/23 08:44 Dose: 1 tab Documented By: ANNA Nicotine Polacrilex (Nicotine Polacrilex 2 Mg Gum) 4 mg BUCCAL 8XD PRN PRN Reason: nicotine addiction Last Admin: 10/31/23 14:10 Dose: 4 mg Documented By: SILVESTRE Ondansetron HCl (Ondansetron Hcl 4 Mg/2 Ml Vial) 4 mg IVPUSH Q8H PRN PRN Reason: Nausea and Vomiting Ondansetron HCl (Ondansetron Odt 4 Mg Tab.Rapdis) 4 mg TRANSLINGU Q6H PRN PRN Reason: Nausea and Vomiting Quetiapine Fumarate (Quetiapine Fumarate 50 Mg Tablet) 50 mg PO TID [facility] Last Admin: 11/01/23 08:44 Dose: 50 mg Documented By: ANNA Quetiapine Fumarate (Quetiapine Fumarate 100 Mg Tablet) 100 mg PO Q6H PRN PRN Reason: agitation Last Admin: 10/30/23 21:42 Dose: 100 mg Documented By: COTEMA Labs 10/04/23 19:39 10/04/23 19:39 Assessment and Plan (1) Alcoholic Korsakoff syndrome: Status: Acute (2) Opioid use disorder: Status: Acute Plan 48-year-old female with a PMH significant for opioid use disorder on Suboxone, alcohol use disorder, and Korsakoff's syndrome? who initially presented to the ED on?09/19/2023 looking for her Clement that she had not seen for a few days. Pt apparently had heard he was at this hospital so she called an ambulance to bring her here. Pt will be admitted to the hospital while awaiting guardianship and LTC placement. Guardianship hearing is scheduled for 10/09/2023. 1.Alcohol Korsakoff's syndrome -Continue Seroquel, Depakote -no behavioral issues noted 2.Opioid use disorder -Continue Suboxone Full Code Pt. ambulatory. Pt. will require a hospitalization pending guardianship and safe placement Quality Stroke Does the patient have a stroke diagnosis?: No VTE Prior VTE?: No VTE Risk Level:: Medical - low VTE Device Contraindication: Treatment Not Indicated VTE Drug Contraindication: Treatment Not Indicated
--- NOTE | 2023-11-01 12:43 | MHC.CM.PN ---
EMR reviewed. Awaiting LTC payor. Per FS, [place] [facility] [place] [employer] kaylyn. CM will continue to follow.
[2023-11-01] MEDS: Nicotine Polacrilex 2 MG GUM 4 MG BUCCAL ×3 (13:14→18:02)
[2023-11-01 15:07] VITALS: BP 117/59; PULSE 64; RESP 18; TEMP 36.2; O2SAT 100
[2023-11-01 19:41] VITALS: BP 113/64; PULSE 78; RESP 18; TEMP 36.3; O2SAT 99
[2023-11-01] MEDS: Magnesium Oxide 400 MG TABLET PO (20:18)
[2023-11-02 03:42] VITALS: BP 103/66; PULSE 62; RESP 18; TEMP 36.2; O2SAT 100
[2023-11-02 07:42] VITALS: BP 90/60; PULSE 62; RESP 16; TEMP 36.5; O2SAT 95
[2023-11-02] MEDS: Multivitamin TABLET 1 TAB PO (09:33)
[2023-11-02] MEDS: QUEtiapine Fumarate 50 MG TABLET PO ×3 (09:33→21:29)
[2023-11-02] MEDS: Buprenorphine/Naloxone 8/2 mg FILM 1 FILM SUBLINGUAL ×2 (09:33→21:29)
[2023-11-02] MEDS: Nicotine Polacrilex 2 MG GUM 4 MG BUCCAL ×4 (09:33→21:35)
[2023-11-02] MEDS: Divalproex Sodium 250 MG TABLET.DR PO ×3 (09:33→21:29)
--- NOTE | 2023-11-02 10:12 | HO.PM.IMPN ---
Subjective Subjective Date of Service: 11/02/23 Interval History: Being followed for placement Resting comfortably offers no acute complaints, no acute events overnight. Review of Systems All other system reviewed and negative Physical Exam Vital Signs: Vital Signs: Last Vital Signs Temp 97.7 F 11/02/23 07:42 Pulse 62 11/02/23 07:42 Resp 16 11/02/23 07:42 BP 90/60 11/02/23 07:42 Pulse Ox 95 11/02/23 07:42 O2 Del Method Room Air 11/02/23 07:42 O2 Flow Rate 3 10/05/23 16:00 BMI result Body Mass Index 22.7 Const: Other: General resting comfortably in no acute distress. Neck supple no JVD. CVS regular rate rhythm, Respiratory lungs clear to auscultation, no respiratory distress, no wheeze, no rhonchi. Gastrointestinal abdomen soft, non tender, bowel sounds audible Extremities no edema. Neuro speech clear, no focal weakness. Poor insight Objective Data Active Medications Acetaminophen (Acetaminophen 325 Mg Tablet) 650 mg PO Q6H PRN PRN Reason: Pain, Mild (Pain Scale 1-3) Last Admin: 10/31/23 14:10 Dose: 650 mg Documented By: SILVESTRE Benzocaine (Throat Lozenge, Medicated Lozenge) 1 lozenge MUCOUS MEM Q2H PRN PRN Reason: Sore Throat Benzonatate (Benzonatate 100 Mg Capsule) 100 mg PO TID PRN PRN Reason: Cough Buprenorphine/Naloxone (Buprenorphine/Naloxone 8/2 Mg Film) 1 film SUBLINGUAL BID [facility] Last Admin: 11/02/23 09:33 Dose: 1 film Documented By: JOSEPH Divalproex Sodium (Divalproex Sodium 250 Mg Tablet.) 250 mg PO TID [facility] Last Admin: 11/02/23 09:33 Dose: 250 mg Documented By: JOSEPH Docusate Sodium (Docusate Sodium 100 Mg Capsule) 100 mg PO DAILY PRN PRN Reason: Constipation Magnesium Oxide (Magnesium Oxide 400 Mg Tablet) 400 mg PO BEDTIME [facility] Last Admin: 11/01/23 20:18 Dose: 400 mg Documented By: TANK Multivitamins/Vitamin C (Multivitamin Tablet) 1 tab PO DAILY [facility] Last Admin: 11/02/23 09:33 Dose: 1 tab Documented By: JOSEPH Nicotine Polacrilex (Nicotine Polacrilex 2 Mg Gum) 4 mg BUCCAL 8XD PRN PRN Reason: nicotine addiction Last Admin: 11/02/23 09:33 Dose: 4 mg Documented By: JOSEPH Ondansetron HCl (Ondansetron Hcl 4 Mg/2 Ml Vial) 4 mg IVPUSH Q8H PRN PRN Reason: Nausea and Vomiting Ondansetron HCl (Ondansetron Odt 4 Mg Tab.Rapdis) 4 mg TRANSLINGU Q6H PRN PRN Reason: Nausea and Vomiting Quetiapine Fumarate (Quetiapine Fumarate 50 Mg Tablet) 50 mg PO TID [facility] Last Admin: 11/02/23 09:33 Dose: 50 mg Documented By: JOSEPH Quetiapine Fumarate (Quetiapine Fumarate 100 Mg Tablet) 100 mg PO Q6H PRN PRN Reason: agitation Last Admin: 10/30/23 21:42 Dose: 100 mg Documented By: COTEMA Labs 10/04/23 19:39 10/04/23 19:39 Assessment and Plan (1) Alcoholic Korsakoff syndrome: Status: Acute (2) Opioid use disorder: Status: Acute Plan 48-year-old female with a PMH significant for opioid use disorder on Suboxone, alcohol use disorder, and Korsakoff's syndrome? who initially presented to the ED on?09/19/2023 looking for her Clement that she had not seen for a few days. Pt apparently had heard he was at this hospital so she called an ambulance to bring her here. Pt will be admitted to the hospital while awaiting guardianship and LTC placement. Guardianship hearing is scheduled for 10/09/2023. 1.Alcohol Korsakoff's syndrome -Continue Seroquel, Depakote -no behavioral issues noted 2.Opioid use disorder -Continue Suboxone Full Code Pt. ambulatory. Pt. will require a hospitalization pending guardianship and safe placement Quality Stroke Does the patient have a stroke diagnosis?: No VTE Prior VTE?: No VTE Risk Level:: Medical - low VTE Device Contraindication: Treatment Not Indicated VTE Drug Contraindication: Treatment Not Indicated
[2023-11-02 15:59] VITALS: BP 133/82; PULSE 94; RESP 20; TEMP 36.6; O2SAT 99
[2023-11-02 19:19] VITALS: BP 116/66; PULSE 89; RESP 18; TEMP 37.4; O2SAT 97
[2023-11-02] MEDS: Acetaminophen 325 MG TABLET 650 MG PO (21:29)
[2023-11-02] MEDS: Magnesium Oxide 400 MG TABLET PO (21:29)
[2023-11-03] MEDS: Nicotine Polacrilex 2 MG GUM 4 MG BUCCAL ×6 (00:26→20:01)
[2023-11-03 03:12] VITALS: BP 146/72; PULSE 85; RESP 18; TEMP 36.8; O2SAT 98
[2023-11-03] MEDS: Acetaminophen 325 MG TABLET 650 MG PO ×3 (04:05→17:41)
[2023-11-03 07:08] VITALS: BP 108/63; PULSE 77; RESP 14; TEMP 37.1; O2SAT 96
[2023-11-03] MEDS: Multivitamin TABLET 1 TAB PO (08:40)
[2023-11-03] MEDS: Divalproex Sodium 250 MG TABLET.DR PO ×3 (08:40→20:57)
[2023-11-03] MEDS: QUEtiapine Fumarate 50 MG TABLET PO ×3 (08:40→20:57)
[2023-11-03] MEDS: Buprenorphine/Naloxone 8/2 mg FILM 1 FILM SUBLINGUAL ×2 (08:40→20:57)
--- NOTE | 2023-11-03 10:37 | HO.PM.IMPN ---
Subjective Subjective Date of Service: 11/03/23 Interval History: Feeling good, smiling offers no acute complaints. Being followed for placement. No acute events overnight. Review of Systems All other system reviewed and negative. Physical Exam Vital Signs: Vital Signs: Last Vital Signs Temp 98.7 F 11/03/23 07:08 Pulse 77 11/03/23 07:08 Resp 14 11/03/23 07:08 BP 108/63 11/03/23 07:08 Pulse Ox 96 11/03/23 07:08 O2 Del Method Room Air 11/03/23 07:08 O2 Flow Rate 3 10/05/23 16:00 BMI result Body Mass Index 22.7 Const: Other: General resting comfortably in no acute distress. Neck supple no JVD. CVS regular rate rhythm, Respiratory lungs clear to auscultation, no respiratory distress, no wheeze, no rhonchi. Gastrointestinal abdomen soft, non tender, bowel sounds audible Extremities no edema. Neuro speech clear, no focal weakness. Poor insight Objective Data Active Medications Acetaminophen (Acetaminophen 325 Mg Tablet) 650 mg PO Q6H PRN PRN Reason: Pain, Mild (Pain Scale 1-3) Last Admin: 11/03/23 04:05 Dose: 650 mg Documented By: TANK Benzocaine (Throat Lozenge, Medicated Lozenge) 1 lozenge MUCOUS MEM Q2H PRN PRN Reason: Sore Throat Benzonatate (Benzonatate 100 Mg Capsule) 100 mg PO TID PRN PRN Reason: Cough Buprenorphine/Naloxone (Buprenorphine/Naloxone 8/2 Mg Film) 1 film SUBLINGUAL BID [facility] Last Admin: 11/03/23 08:40 Dose: 1 film Documented By: JOSEPH Divalproex Sodium (Divalproex Sodium 250 Mg Tablet.Dr) 250 mg PO TID [facility] Last Admin: 11/03/23 08:40 Dose: 250 mg Documented By: JOSEPH Docusate Sodium (Docusate Sodium 100 Mg Capsule) 100 mg PO DAILY PRN PRN Reason: Constipation Magnesium Oxide (Magnesium Oxide 400 Mg Tablet) 400 mg PO BEDTIME [facility] Last Admin: 11/02/23 21:29 Dose: 400 mg Documented By: TANK Multivitamins/Vitamin C (Multivitamin Tablet) 1 tab PO DAILY [facility] Last Admin: 11/03/23 08:40 Dose: 1 tab Documented By: JOSEPH Nicotine Polacrilex (Nicotine Polacrilex 2 Mg Gum) 4 mg BUCCAL 8XD PRN PRN Reason: nicotine addiction Last Admin: 11/03/23 08:40 Dose: 4 mg Documented By: JOSEPH Ondansetron HCl (Ondansetron Hcl 4 Mg/2 Ml Vial) 4 mg IVPUSH Q8H PRN PRN Reason: Nausea and Vomiting Ondansetron HCl (Ondansetron Odt 4 Mg Tab.Rapdis) 4 mg TRANSLINGU Q6H PRN PRN Reason: Nausea and Vomiting Quetiapine Fumarate (Quetiapine Fumarate 50 Mg Tablet) 50 mg PO TID [facility] Last Admin: 11/03/23 08:40 Dose: 50 mg Documented By: JOSEPH Quetiapine Fumarate (Quetiapine Fumarate 100 Mg Tablet) 100 mg PO Q6H PRN PRN Reason: agitation Last Admin: 10/30/23 21:42 Dose: 100 mg Documented By: COTEMA Labs 10/04/23 19:39 10/04/23 19:39 Assessment and Plan (1) Alcoholic Korsakoff syndrome: Status: Acute (2) Opioid use disorder: Status: Acute Plan 48-year-old female with a PMH significant for opioid use disorder on Suboxone, alcohol use disorder, and Korsakoff's syndrome? who initially presented to the ED on?09/19/2023 looking for her Clement that she had not seen for a few days. Pt apparently had heard he was at this hospital so she called an ambulance to bring her here. Pt will be admitted to the hospital while awaiting guardianship and LTC placement. Guardianship hearing is scheduled for 10/09/2023. 1.Alcohol Korsakoff's syndrome -Continue Seroquel, Depakote -no behavioral issues noted 2.Opioid use disorder -Continue Suboxone Full Code Pt. ambulatory. Pt. will require a hospitalization pending guardianship and safe placement Quality Stroke Does the patient have a stroke diagnosis?: No VTE Prior VTE?: No VTE Risk Level:: Medical - low VTE Device Contraindication: Treatment Not Indicated VTE Drug Contraindication: Treatment Not Indicated
[2023-11-03 15:40] VITALS: BP 119/69; PULSE 91; RESP 15; TEMP 36.1; O2SAT 97
[2023-11-03 19:38] VITALS: BP 113/62; PULSE 82; RESP 18; TEMP 36.2; O2SAT 98
[2023-11-03] MEDS: Magnesium Oxide 400 MG TABLET PO (20:57)
[2023-11-04 03:20] VITALS: BP 104/51; PULSE 63; RESP 16; TEMP 36.3; O2SAT 97
[2023-11-04 07:23] VITALS: BP 105/55; PULSE 70; RESP 12; TEMP 36.3; O2SAT 97
[2023-11-04] MEDS: QUEtiapine Fumarate 50 MG TABLET PO ×3 (08:35→20:36)
[2023-11-04] MEDS: Buprenorphine/Naloxone 8/2 mg FILM 1 FILM SUBLINGUAL ×2 (08:35→20:36)
[2023-11-04] MEDS: Multivitamin TABLET 1 TAB PO (08:35)
[2023-11-04] MEDS: Divalproex Sodium 250 MG TABLET.DR PO ×3 (08:35→20:35)
--- NOTE | 2023-11-04 08:57 | MHC.CM.PN ---
EMR reviewed. Plan remains dc to LTC. Per FS, patient's sister/guardian is scheduled to come to [facility] [place] at 2pm to sign [email or web address] kaylyn. CM will continue to follow.
--- NOTE | 2023-11-04 11:14 | P.PNIM_ITS ---
Subjective Subjective Date of Service: 11/04/23 Interval History: Resting comfortably, offers no acute complaints, no behavioral issues, tolerating diet, no acute events overnight. Review of Systems All other system reviewed and negative. Physical Exam 2 Vital Signs: Vital Signs: Last Vital Signs Temp 97.4 F 11/04/23 07:23 Pulse 70 11/04/23 07:23 Resp 12 11/04/23 07:23 BP 105/55 L 11/04/23 07:23 Pulse Ox 97 11/04/23 07:23 O2 Del Method Room Air 11/04/23 07:23 O2 Flow Rate 3 10/05/23 16:00 BMI result Body Mass Index 22.7 Const: Other: General resting comfortably in no acute distress. Neck supple no JVD. CVS regular rate rhythm, Respiratory lungs clear to auscultation, no respiratory distress, no wheeze, no rhonchi. Gastrointestinal abdomen soft, non tender, bowel sounds audible Extremities no edema. Neuro speech clear, no focal weakness. Poor insight Objective Data Active Medications Acetaminophen (Acetaminophen 325 Mg Tablet) 650 mg PO Q6H PRN PRN Reason: Pain, Mild (Pain Scale 1-3) Last Admin: 11/03/23 17:41 Dose: 650 mg Documented By: CHRISTOFER Benzocaine (Throat Lozenge, Medicated Lozenge) 1 lozenge MUCOUS MEM Q2H PRN PRN Reason: Sore Throat Benzonatate (Benzonatate 100 Mg Capsule) 100 mg PO TID PRN PRN Reason: Cough Buprenorphine/Naloxone (Buprenorphine/Naloxone 8/2 Mg Film) 1 film SUBLINGUAL BID [facility] Last Admin: 11/04/23 08:35 Dose: 1 film Documented By: SILVESTRE Divalproex Sodium (Divalproex Sodium 250 Mg Tablet.Dr) 250 mg PO TID [facility] Last Admin: 11/04/23 08:35 Dose: 250 mg Documented By: SILVESTRE Docusate Sodium (Docusate Sodium 100 Mg Capsule) 100 mg PO DAILY PRN PRN Reason: Constipation Magnesium Oxide (Magnesium Oxide 400 Mg Tablet) 400 mg PO BEDTIME [facility] Last Admin: 11/03/23 20:57 Dose: 400 mg Documented By: JUAN Multivitamins/Vitamin C (Multivitamin Tablet) 1 tab PO DAILY [facility] Last Admin: 11/04/23 08:35 Dose: 1 tab Documented By: SILVESTRE Nicotine Polacrilex (Nicotine Polacrilex 2 Mg Gum) 4 mg BUCCAL 8XD PRN PRN Reason: nicotine addiction Last Admin: 11/03/23 20:01 Dose: 4 mg Documented By: JUAN Ondansetron HCl (Ondansetron Hcl 4 Mg/2 Ml Vial) 4 mg IVPUSH Q8H PRN PRN Reason: Nausea and Vomiting Ondansetron HCl (Ondansetron Odt 4 Mg Tab.Rapdis) 4 mg TRANSLINGU Q6H PRN PRN Reason: Nausea and Vomiting Quetiapine Fumarate (Quetiapine Fumarate 50 Mg Tablet) 50 mg PO TID [facility] Last Admin: 11/04/23 08:35 Dose: 50 mg Documented By: SILVESTRE Quetiapine Fumarate (Quetiapine Fumarate 100 Mg Tablet) 100 mg PO Q6H PRN PRN Reason: agitation Last Admin: 10/30/23 21:42 Dose: 100 mg Documented By: COTEMA Labs 10/04/23 19:39 10/04/23 19:39 Assessment and Plan (1) Alcoholic Korsakoff syndrome: Status: Acute (2) Opioid use disorder: Status: Acute Plan 48-year-old female with a PMH significant for opioid use disorder on Suboxone, alcohol use disorder, and Korsakoff's syndrome? who initially presented to the ED on?09/19/2023 looking for her Clement that she had not seen for a few days. Pt apparently had heard he was at this hospital so she called an ambulance to bring her here. Pt will be admitted to the hospital while awaiting guardianship and LTC placement. Guardianship hearing is scheduled for 10/09/2023. 1.Alcohol Korsakoff's syndrome -Continue Seroquel, Depakote -no behavioral issues noted 2.Opioid use disorder -Continue Suboxone Full Code Pt. ambulatory. Pt. will require a hospitalization pending guardianship and safe placement Quality Stroke Does the patient have a stroke diagnosis?: No VTE Prior VTE?: No VTE Risk Level:: Medical - low VTE Device Contraindication: Treatment Not Indicated VTE Drug Contraindication: Treatment Not Indicated
[2023-11-04] MEDS: Nicotine Polacrilex 2 MG GUM 4 MG BUCCAL ×5 (11:19→23:26)
[2023-11-04] MEDS: Acetaminophen 325 MG TABLET 650 MG PO ×2 (11:19→18:39)
[2023-11-04 15:07] VITALS: BP 110/67; PULSE 87; RESP 17; TEMP 36.7; O2SAT 100
[2023-11-04 19:24] VITALS: BP 119/70; PULSE 79; RESP 18; TEMP 36.2; O2SAT 99
[2023-11-04] MEDS: Magnesium Oxide 400 MG TABLET PO (20:36)
[2023-11-05] MEDS: Acetaminophen 325 MG TABLET 650 MG PO ×3 (02:17→18:32)
[2023-11-05 02:57] VITALS: BP 115/71; PULSE 88; RESP 18; TEMP 36.7; O2SAT 98
[2023-11-05 07:25] VITALS: BP 139/70; PULSE 76; RESP 20; TEMP 36.4; O2SAT 99
[2023-11-05] MEDS: Nicotine Polacrilex 2 MG GUM 4 MG BUCCAL ×4 (07:32→18:33)
--- NOTE | 2023-11-05 07:59 | HO.PM.IMPN ---
Subjective Subjective Date of Service: 11/05/23 Interval History: Being followed for placement. Sitting comfortably on bed, offers no acute complaints, no acute events overnight. Review of Systems All other system reviewed and negative Physical Exam Vital Signs: Vital Signs: Last Vital Signs Temp 97.6 F 11/05/23 07:25 Pulse 76 11/05/23 07:25 Resp 20 11/05/23 07:25 BP 139/70 11/05/23 07:25 Pulse Ox 99 11/05/23 07:25 O2 Del Method Room Air 11/05/23 07:25 O2 Flow Rate 3 10/05/23 16:00 BMI result Body Mass Index 22.7 Const: Other: General resting comfortably in no acute distress. Neck supple no JVD. CVS regular rate rhythm, Respiratory lungs clear to auscultation, no respiratory distress, no wheeze, no rhonchi. Gastrointestinal abdomen soft, non tender, bowel sounds audible Extremities no edema. Neuro speech clear, no focal weakness. Poor insight Objective Data Active Medications Acetaminophen (Acetaminophen 325 Mg Tablet) 650 mg PO Q6H PRN PRN Reason: Pain, Mild (Pain Scale 1-3) Last Admin: 11/05/23 02:17 Dose: 650 mg Documented By: JACKI Benzocaine (Throat Lozenge, Medicated Lozenge) 1 lozenge MUCOUS MEM Q2H PRN PRN Reason: Sore Throat Benzonatate (Benzonatate 100 Mg Capsule) 100 mg PO TID PRN PRN Reason: Cough Buprenorphine/Naloxone (Buprenorphine/Naloxone 8/2 Mg Film) 1 film SUBLINGUAL BID [facility] Last Admin: 11/04/23 20:36 Dose: 1 film Documented By: JACKI Divalproex Sodium (Divalproex Sodium 250 Mg Tablet.) 250 mg PO TID [facility] Last Admin: 11/04/23 20:35 Dose: 250 mg Documented By: JACKI Docusate Sodium (Docusate Sodium 100 Mg Capsule) 100 mg PO DAILY PRN PRN Reason: Constipation Magnesium Oxide (Magnesium Oxide 400 Mg Tablet) 400 mg PO BEDTIME [facility] Last Admin: 11/04/23 20:36 Dose: 400 mg Documented By: JACKI Multivitamins/Vitamin C (Multivitamin Tablet) 1 tab PO DAILY [facility] Last Admin: 11/04/23 08:35 Dose: 1 tab Documented By: HO.COUGHLM Nicotine Polacrilex (Nicotine Polacrilex 2 Mg Gum) 4 mg BUCCAL 8XD PRN PRN Reason: nicotine addiction Last Admin: 11/05/23 07:32 Dose: 4 mg Documented By: JOSEPH Ondansetron HCl (Ondansetron Hcl 4 Mg/2 Ml Vial) 4 mg IVPUSH Q8H PRN PRN Reason: Nausea and Vomiting Ondansetron HCl (Ondansetron Odt 4 Mg Tab.Rapdis) 4 mg TRANSLINGU Q6H PRN PRN Reason: Nausea and Vomiting Quetiapine Fumarate (Quetiapine Fumarate 50 Mg Tablet) 50 mg PO TID [facility]ANN[facility] Last Admin: 11/04/23 20:36 Dose: 50 mg Documented By: JACKI Quetiapine Fumarate (Quetiapine Fumarate 100 Mg Tablet) 100 mg PO Q6H PRN PRN Reason: agitation Last Admin: 10/30/23 21:42 Dose: 100 mg Documented By: COTEMA Labs 10/04/23 19:39 10/04/23 19:39 Assessment and Plan (1) Alcoholic Korsakoff syndrome: Status: Acute (2) Opioid use disorder: Status: Acute Plan 48-year-old female with a PMH significant for opioid use disorder on Suboxone, alcohol use disorder, and Korsakoff's syndrome? who initially presented to the ED on?09/19/2023 looking for her Clement that she had not seen for a few days. Pt apparently had heard he was at this hospital so she called an ambulance to bring her here. Pt admitted to the hospital while awaiting guardianship and LTC placement. Guardianship hearing is scheduled for 10/09/2023. 1.Alcohol Korsakoff's syndrome -Continue Seroquel, Depakote -no behavioral issues noted 2.Opioid use disorder -Continue Suboxone Full Code Pt. ambulatory. Pt. will require hospitalization pending guardianship and safe placement. Quality Stroke Does the patient have a stroke diagnosis?: No VTE Prior VTE?: No VTE Risk Level:: Medical - low VTE Device Contraindication: Treatment Not Indicated VTE Drug Contraindication: Treatment Not Indicated
[2023-11-05] MEDS: Buprenorphine/Naloxone 8/2 mg FILM 1 FILM SUBLINGUAL ×2 (08:48→20:51)
[2023-11-05] MEDS: Multivitamin TABLET 1 TAB PO (08:48)
[2023-11-05] MEDS: QUEtiapine Fumarate 50 MG TABLET PO ×3 (08:48→20:51)
[2023-11-05] MEDS: Divalproex Sodium 250 MG TABLET.DR PO ×3 (08:48→20:51)
[2023-11-05 15:17] VITALS: BP 116/55; PULSE 79; RESP 16; TEMP 36.4; O2SAT 98
[2023-11-05 19:16] VITALS: BP 121/69; PULSE 92; RESP 15; TEMP 36.8; O2SAT 96
[2023-11-05] MEDS: Magnesium Oxide 400 MG TABLET PO (20:51)
[2023-11-06] MEDS: Nicotine Polacrilex 2 MG GUM 4 MG BUCCAL ×6 (00:26→20:38)
[2023-11-06] MEDS: Acetaminophen 325 MG TABLET 650 MG PO ×3 (00:29→18:00)
[2023-11-06 03:15] VITALS: BP 104/57; PULSE 71; RESP 18; TEMP 36.3; O2SAT 97
[2023-11-06 07:23] VITALS: BP 107/63; PULSE 72; RESP 20; TEMP 36.7; O2SAT 99
[2023-11-06] MEDS: Multivitamin TABLET 1 TAB PO (08:31)
[2023-11-06] MEDS: Buprenorphine/Naloxone 8/2 mg FILM 1 FILM SUBLINGUAL ×2 (08:31→20:38)
[2023-11-06] MEDS: QUEtiapine Fumarate 50 MG TABLET PO ×3 (08:31→20:38)
[2023-11-06] MEDS: Divalproex Sodium 250 MG TABLET.DR PO ×3 (08:31→20:38)
--- NOTE | 2023-11-06 12:31 | P.PNIM_ITS ---
Subjective Subjective Date of Service: 11/06/23 Interval History: no complaints; disoriented Review of Systems Review of Systems: Yes all other systems are reviewed and are negative Physical Exam 2 Vital Signs: Vital Signs: Last Vital Signs Temp 98.0 F 11/06/23 07:23 Pulse 72 11/06/23 07:23 Resp 20 11/06/23 07:23 BP 107/63 11/06/23 07:23 Pulse Ox 99 11/06/23 07:23 O2 Del Method Room Air 11/06/23 07:23 O2 Flow Rate 3 10/05/23 16:00 BMI result Body Mass Index 22.7 Gen: in no acute distress Lungs: normal resp effort Neuro: alert, no focal weakness Psych: impaired insight Objective Data Active Medications Acetaminophen (Acetaminophen 325 Mg Tablet) 650 mg PO Q6H PRN PRN Reason: Pain, Mild (Pain Scale 1-3) Last Admin: 11/06/23 11:46 Dose: 650 mg Documented By: JOSEPH Benzocaine (Throat Lozenge, Medicated Lozenge) 1 lozenge MUCOUS MEM Q2H PRN PRN Reason: Sore Throat Benzonatate (Benzonatate 100 Mg Capsule) 100 mg PO TID PRN PRN Reason: Cough Buprenorphine/Naloxone (Buprenorphine/Naloxone 8/2 Mg Film) 1 film SUBLINGUAL BID [facility] Last Admin: 11/06/23 08:31 Dose: 1 film Documented By: JOSEPH Divalproex Sodium (Divalproex Sodium 250 Mg Tablet.Dr) 250 mg PO TID [facility] Last Admin: 11/06/23 08:31 Dose: 250 mg Documented By: JOSEPH Docusate Sodium (Docusate Sodium 100 Mg Capsule) 100 mg PO DAILY PRN PRN Reason: Constipation Magnesium Oxide (Magnesium Oxide 400 Mg Tablet) 400 mg PO BEDTIME [facility] Last Admin: 11/05/23 20:51 Dose: 400 mg Documented By: JACKI Multivitamins/Vitamin C (Multivitamin Tablet) 1 tab PO DAILY [facility] Last Admin: 11/06/23 08:31 Dose: 1 tab Documented By: JOSEPH Nicotine Polacrilex (Nicotine Polacrilex 2 Mg Gum) 4 mg BUCCAL 8XD PRN PRN Reason: nicotine addiction Last Admin: 11/06/23 11:47 Dose: 4 mg Documented By: JOSEPH Ondansetron HCl (Ondansetron Hcl 4 Mg/2 Ml Vial) 4 mg IVPUSH Q8H PRN PRN Reason: Nausea and Vomiting Ondansetron HCl (Ondansetron Odt 4 Mg Tab.Rapdis) 4 mg TRANSLINGU Q6H PRN PRN Reason: Nausea and Vomiting Quetiapine Fumarate (Quetiapine Fumarate 50 Mg Tablet) 50 mg PO TID [facility] Last Admin: 11/06/23 08:31 Dose: 50 mg Documented By: JOSEPH Quetiapine Fumarate (Quetiapine Fumarate 100 Mg Tablet) 100 mg PO Q6H PRN PRN Reason: agitation Last Admin: 10/30/23 21:42 Dose: 100 mg Documented By: GROVEREMA Labs 10/04/23 19:39 10/04/23 19:39 Assessment and Plan (1) Alcoholic Korsakoff syndrome: Status: Acute (2) Opioid use disorder: Status: Acute Plan d34 48yo F with OUD on Suboxone, AUD, Korsakoff syndrome initially presented to ED 09/19/23 with confusion, admitted for placement, guardianship hearing 10/09/23, awaiting LTC placement Korsakoff syndrome - continue quetiapine, valproate OUD - Suboxone VTE ppx - SCDs; pt ambulatory In my clinical judgment, the patient requires continued inpatient hospitalization for the following reasons: placement Total time managing care of this patient today: 25 minutes. Quality Stroke Does the patient have a stroke diagnosis?: No VTE Prior VTE?: No VTE Risk Level:: Medical - low VTE Device Contraindication: Treatment Not Indicated VTE Drug Contraindication: Treatment Not Indicated
--- NOTE | 2023-11-06 13:21 | MHC.CM.PN ---
EMR reviewed. No changes to dc plan. Guardian is scheduled to meet with financial counselor today to finalize [employer] kaylyn. Referral sent to [facility], who reportedly has an open dementia bed and is interested in patient. Awaiting response. CM will continue to follow.
[2023-11-06 15:58] VITALS: BP 134/76; PULSE 100; RESP 18; TEMP 36.5; O2SAT 98
--- NOTE | 2023-11-06 16:08 | PC.NURSE ---
Pt cooperative no behavioral issues easy to redirect
[2023-11-06 19:57] VITALS: BP 127/69; PULSE 99; RESP 18; TEMP 36.5; O2SAT 98
[2023-11-06] MEDS: Magnesium Oxide 400 MG TABLET PO (20:38)
[2023-11-07 04:00] VITALS: BP 113/77; PULSE 84; RESP 16; TEMP 36.2; O2SAT 98
[2023-11-07] MEDS: Acetaminophen 325 MG TABLET 650 MG PO ×4 (04:29→23:26)
[2023-11-07] MEDS: Nicotine Polacrilex 2 MG GUM 4 MG BUCCAL ×6 (04:29→23:26)
--- NOTE | 2023-11-07 05:05 | PC.NURSE ---
Patient requested nicotine gum with bedtime medications, given per OCT. Patient slept throughout the night, had no behavioral issues, took all medications without difficulty. Patient requested tylenol and nicotine gum this morning, given per OCT.
[2023-11-07 07:13] VITALS: BP 100/57; PULSE 64; RESP 18; TEMP 36.2; O2SAT 97
[2023-11-07] MEDS: Buprenorphine/Naloxone 8/2 mg FILM 1 FILM SUBLINGUAL ×2 (08:39→20:38)
[2023-11-07] MEDS: QUEtiapine Fumarate 50 MG TABLET PO ×3 (08:39→20:39)
[2023-11-07] MEDS: Multivitamin TABLET 1 TAB PO (08:39)
[2023-11-07] MEDS: Divalproex Sodium 250 MG TABLET.DR PO ×3 (08:39→20:39)
--- NOTE | 2023-11-07 10:35 | P.PNIM_ITS ---
Subjective Subjective Date of Service: 11/07/23 Interval History: no new events or complaints Review of Systems Review of Systems: Yes all other systems are reviewed and are negative Physical Exam 2 Vital Signs: Vital Signs: Last Vital Signs Temp 97.2 F 11/07/23 07:13 Pulse 64 11/07/23 07:13 Resp 18 11/07/23 07:13 BP 100/57 L 11/07/23 07:13 Pulse Ox 97 11/07/23 07:13 O2 Del Method Room Air 11/07/23 07:13 O2 Flow Rate 3 10/05/23 16:00 BMI result Body Mass Index 22.7 Gen: in no acute distress Lungs: normal resp effort Neuro: alert, no focal weakness Psych: impaired insight Objective Data Active Medications Acetaminophen (Acetaminophen 325 Mg Tablet) 650 mg PO Q6H PRN PRN Reason: Pain, Mild (Pain Scale 1-3) Last Admin: 11/07/23 04:29 Dose: 650 mg Documented By: MAR Benzocaine (Throat Lozenge, Medicated Lozenge) 1 lozenge MUCOUS MEM Q2H PRN PRN Reason: Sore Throat Benzonatate (Benzonatate 100 Mg Capsule) 100 mg PO TID PRN PRN Reason: Cough Buprenorphine/Naloxone (Buprenorphine/Naloxone 8/2 Mg Film) 1 film SUBLINGUAL BID [facility] Last Admin: 11/07/23 08:39 Dose: 1 film Documented By: SANTIAGO Divalproex Sodium (Divalproex Sodium 250 Mg Tablet.Dr) 250 mg PO TID [facility] Last Admin: 11/07/23 08:39 Dose: 250 mg Documented By: SANTIAGO Docusate Sodium (Docusate Sodium 100 Mg Capsule) 100 mg PO DAILY PRN PRN Reason: Constipation Magnesium Oxide (Magnesium Oxide 400 Mg Tablet) 400 mg PO BEDTIME [facility] Last Admin: 11/06/23 20:38 Dose: 400 mg Documented By: MAR Multivitamins/Vitamin C (Multivitamin Tablet) 1 tab PO DAILY [facility] Last Admin: 11/07/23 08:39 Dose: 1 tab Documented By: SANTIAGO Nicotine Polacrilex (Nicotine Polacrilex 2 Mg Gum) 4 mg BUCCAL 8XD PRN PRN Reason: nicotine addiction Last Admin: 11/07/23 08:38 Dose: 4 mg Documented By: SANTIAGO Ondansetron HCl (Ondansetron Hcl 4 Mg/2 Ml Vial) 4 mg IVPUSH Q8H PRN PRN Reason: Nausea and Vomiting Ondansetron HCl (Ondansetron Odt 4 Mg Tab.Rapdis) 4 mg TRANSLINGU Q6H PRN PRN Reason: Nausea and Vomiting Quetiapine Fumarate (Quetiapine Fumarate 50 Mg Tablet) 50 mg PO TID [facility] Last Admin: 11/07/23 08:39 Dose: 50 mg Documented By: SANTAIGO Quetiapine Fumarate (Quetiapine Fumarate 100 Mg Tablet) 100 mg PO Q6H PRN PRN Reason: agitation Last Admin: 10/30/23 21:42 Dose: 100 mg Documented By: COTEMA Labs 10/04/23 19:39 10/04/23 19:39 Assessment and Plan (1) Alcoholic Korsakoff syndrome: Status: Acute (2) Opioid use disorder: Status: Acute Plan d35 48yo F with OUD on Suboxone, AUD, Korsakoff syndrome initially presented to ED 09/19/23 with confusion, admitted for placement, guardianship hearing 10/09/23, awaiting LTC placement Korsakoff syndrome - continue quetiapine, valproate OUD - Suboxone VTE ppx - SCDs; pt ambulatory In my clinical judgment, the patient requires continued inpatient hospitalization for the following reasons: placement Total time managing care of this patient today: 25 minutes. Quality Stroke Does the patient have a stroke diagnosis?: No VTE Prior VTE?: No VTE Risk Level:: Medical - low VTE Device Contraindication: Treatment Not Indicated VTE Drug Contraindication: Treatment Not Indicated
[2023-11-07 15:50] VITALS: BP 126/58; PULSE 83; RESP 18; TEMP 36.6; O2SAT 97
--- NOTE | 2023-11-07 19:12 | PC.NURSE ---
Pt is alert, pleasant, and cooperative with care. Pt requesting PRN medications Tylenol and nicotine gum, given with good effect. Pt is able to take medications whole with water. Pt had visitor at bedside today, camera in room for safety.
[2023-11-07 20:00] VITALS: BP 103/69; PULSE 96; RESP 14; TEMP 36.3; O2SAT 97
[2023-11-07] MEDS: Magnesium Oxide 400 MG TABLET PO (20:39)
[2023-11-08 04:00] VITALS: BP 109/71; PULSE 70; RESP 17; TEMP 36.9; O2SAT 97
[2023-11-08] MEDS: Nicotine Polacrilex 2 MG GUM 4 MG BUCCAL ×2 (05:50→13:54)
[2023-11-08] MEDS: Acetaminophen 325 MG TABLET 650 MG PO ×2 (05:50→13:53)
--- NOTE | 2023-11-08 05:56 | PC.NURSE ---
Patient requested nicotine gum with bedtime medications, given per OCT. Patient had no behavioral issues throughout the night. Patient slept from 2330 to 0530. at 0530 patient requested tylenol for generalized pain, nicotine gum, and coffee. Patient awake and getting self ready for the day.
[2023-11-08] MEDS: Buprenorphine/Naloxone 8/2 mg FILM 1 FILM SUBLINGUAL ×2 (06:46→21:44)
[2023-11-08] MEDS: Divalproex Sodium 250 MG TABLET.DR PO ×3 (06:47→21:44)
[2023-11-08] MEDS: QUEtiapine Fumarate 50 MG TABLET PO ×3 (06:47→21:44)
[2023-11-08] MEDS: Multivitamin TABLET 1 TAB PO (06:47)
--- NOTE | 2023-11-08 09:32 | P.PNIM_ITS ---
Subjective Subjective Date of Service: 11/08/23 Interval History: no new events or concerns Review of Systems Review of Systems: Yes all other systems are reviewed and are negative Physical Exam 2 Vital Signs: Vital Signs: Last Vital Signs Temp 98.5 F 11/08/23 04:00 Pulse 70 11/08/23 04:00 Resp 17 11/08/23 04:00 BP 109/71 11/08/23 04:00 Pulse Ox 97 11/08/23 04:00 O2 Del Method Room Air 11/08/23 04:00 O2 Flow Rate 3 10/05/23 16:00 BMI result Body Mass Index 22.7 Gen: in no acute distress Lungs: normal resp effort Neuro: alert, no focal weakness Psych: impaired insight Objective Data Active Medications Acetaminophen (Acetaminophen 325 Mg Tablet) 650 mg PO Q6H PRN PRN Reason: Pain, Mild (Pain Scale 1-3) Last Admin: 11/08/23 05:50 Dose: 650 mg Documented By: MAR Benzocaine (Throat Lozenge, Medicated Lozenge) 1 lozenge MUCOUS MEM Q2H PRN PRN Reason: Sore Throat Benzonatate (Benzonatate 100 Mg Capsule) 100 mg PO TID PRN PRN Reason: Cough Buprenorphine/Naloxone (Buprenorphine/Naloxone 8/2 Mg Film) 1 film SUBLINGUAL BID [facility] Last Admin: 11/08/23 06:46 Dose: 1 film Documented By: CHRISTOFER Divalproex Sodium (Divalproex Sodium 250 Mg Tablet.Dr) 250 mg PO TID [facility] Last Admin: 11/08/23 06:47 Dose: 250 mg Documented By: CHRISTOFER Docusate Sodium (Docusate Sodium 100 Mg Capsule) 100 mg PO DAILY PRN PRN Reason: Constipation Magnesium Oxide (Magnesium Oxide 400 Mg Tablet) 400 mg PO BEDTIME [facility] Last Admin: 11/07/23 20:39 Dose: 400 mg Documented By: MAR Multivitamins/Vitamin C (Multivitamin Tablet) 1 tab PO DAILY [facility] Last Admin: 11/08/23 06:47 Dose: 1 tab Documented By: CHRISTOFER Nicotine Polacrilex (Nicotine Polacrilex 2 Mg Gum) 4 mg BUCCAL 8XD PRN PRN Reason: nicotine addiction Last Admin: 11/08/23 05:50 Dose: 4 mg Documented By: MAR Ondansetron HCl (Ondansetron Hcl 4 Mg/2 Ml Vial) 4 mg IVPUSH Q8H PRN PRN Reason: Nausea and Vomiting Ondansetron HCl (Ondansetron Odt 4 Mg Tab.Rapdis) 4 mg TRANSLINGU Q6H PRN PRN Reason: Nausea and Vomiting Quetiapine Fumarate (Quetiapine Fumarate 50 Mg Tablet) 50 mg PO TID [facility] Last Admin: 11/08/23 06:47 Dose: 50 mg Documented By: VENSTEFFANIE Quetiapine Fumarate (Quetiapine Fumarate 100 Mg Tablet) 100 mg PO Q6H PRN PRN Reason: agitation Last Admin: 10/30/23 21:42 Dose: 100 mg Documented By: MAR Labs 10/04/23 19:39 10/04/23 19:39 Assessment and Plan (1) Alcoholic Korsakoff syndrome: Status: Acute (2) Opioid use disorder: Status: Acute Plan d36 48yo F with OUD on Suboxone, AUD, Korsakoff syndrome initially presented to ED 09/19/23 with confusion, admitted for placement, guardianship hearing 10/09/23, awaiting LTC placement Korsakoff syndrome - continue quetiapine, valproate OUD - Suboxone VTE ppx - SCDs; pt ambulatory In my clinical judgment, the patient requires continued inpatient hospitalization for the following reasons: placement Total time managing care of this patient today: 25 minutes. Quality Stroke Does the patient have a stroke diagnosis?: No VTE Prior VTE?: No VTE Risk Level:: Medical - low VTE Device Contraindication: Treatment Not Indicated VTE Drug Contraindication: Treatment Not Indicated
[2023-11-08 09:52] VITALS: BP 120/72; PULSE 93; RESP 15; TEMP 36; O2SAT 94
--- NOTE | 2023-11-08 11:44 | PC.NURSE ---
Pt calm and cooperative with care this shift.
--- NOTE | 2023-11-08 13:22 | MHC.CM.PN ---
EMR reviewed. No change to dc plan - awaiting LTC. No bed offers at this time.
[2023-11-08] MEDS: OLANZapine 10 MG VIAL 5 MG IM (14:15)
--- NOTE | 2023-11-08 14:18 | PC.NURSE ---
Security called on patient twice, throwing hospital equipment, slamming doors. Unplugging camera in room for safety/flight risk, notified. Order 1 time dose IM Zyprexa. Pt accepted with security in room. Left Deltoid. Tolerated injection well.
--- NOTE | 2023-11-08 15:13 | PC.NURSE ---
Addendum entered by Rafat Malave RN 11/08/23 15:15: Okay to hold off on afternoon VS per MD at this time. Original Note: Pt in bed resting, eye closed, RR 16.
--- NOTE | 2023-11-08 15:42 | PM.EVENT ---
Event Note Date of Service: 11/08/23 Event Note: Received consult order for patient for behavioral agitation. When patient approached she was sleeping and unable to participate in interview; chart reviewed. spoke to attending and RN caring for patient. Patient received Zyprexa 5mg IM shortly before seen. If patient continue to have dysregulation and throwing things and at risk of harm self or other again could consider increasing depakote or seroquel. Please reach out to behavioral health for consult if needed again. Time Spent With Patient Time: Total time managing care of this patient today _15___ minutes.
[2023-11-08 19:15] VITALS: BP 114/68; PULSE 66; RESP 16; TEMP 36.2; O2SAT 99
[2023-11-08] MEDS: Magnesium Oxide 400 MG TABLET PO (21:44)
[2023-11-09 03:41] VITALS: BP 100/60; PULSE 64; RESP 16; TEMP 36.7; O2SAT 96
[2023-11-09] MEDS: Nicotine Polacrilex 2 MG GUM 4 MG BUCCAL ×4 (05:27→18:00)
[2023-11-09] MEDS: Acetaminophen 325 MG TABLET 650 MG PO ×2 (07:00→14:00)
[2023-11-09 07:51] VITALS: BP 139/63; PULSE 78; RESP 18; TEMP 36.8; O2SAT 97
[2023-11-09] MEDS: Multivitamin TABLET 1 TAB PO (08:29)
[2023-11-09] MEDS: QUEtiapine Fumarate 50 MG TABLET PO ×2 (08:29→14:00)
[2023-11-09] MEDS: Divalproex Sodium 250 MG TABLET.DR PO ×3 (08:29→21:02)
[2023-11-09] MEDS: Buprenorphine/Naloxone 8/2 mg FILM 1 FILM SUBLINGUAL ×2 (08:30→21:02)
--- NOTE | 2023-11-09 08:30 | P.PNIM_ITS ---
Subjective Subjective Date of Service: 11/09/23 Interval History: agitated yesterday, threat to staff- got 1 dose of IM Zyprexa and now much calmer no complaints Review of Systems Review of Systems: Yes all other systems are reviewed and are negative Physical Exam 2 Vital Signs: Vital Signs: Last Vital Signs Temp 98.2 F 11/09/23 07:51 Pulse 78 11/09/23 07:51 Resp 18 11/09/23 07:51 BP 139/63 11/09/23 07:51 Pulse Ox 97 11/09/23 07:51 O2 Del Method Room Air 11/09/23 07:51 O2 Flow Rate 3 10/05/23 16:00 BMI result Body Mass Index 22.7 Gen: in no acute distress Lungs: normal resp effort Neuro: alert, no focal weakness Psych: impaired insight Objective Data Active Medications Acetaminophen (Acetaminophen 325 Mg Tablet) 650 mg PO Q6H PRN PRN Reason: Pain, Mild (Pain Scale 1-3) Last Admin: 11/09/23 07:00 Dose: 650 mg Documented By: SILVESTRE Benzocaine (Throat Lozenge, Medicated Lozenge) 1 lozenge MUCOUS MEM Q2H PRN PRN Reason: Sore Throat Benzonatate (Benzonatate 100 Mg Capsule) 100 mg PO TID PRN PRN Reason: Cough Buprenorphine/Naloxone (Buprenorphine/Naloxone 8/2 Mg Film) 1 film SUBLINGUAL BID [facility] Last Admin: 11/09/23 08:30 Dose: 1 film Documented By: SILVESTRE Divalproex Sodium (Divalproex Sodium 250 Mg Tablet.) 250 mg PO TID [facility] Last Admin: 11/09/23 08:29 Dose: 250 mg Documented By: SILVESTRE Docusate Sodium (Docusate Sodium 100 Mg Capsule) 100 mg PO DAILY PRN PRN Reason: Constipation Magnesium Oxide (Magnesium Oxide 400 Mg Tablet) 400 mg PO BEDTIME [facility] Last Admin: 11/08/23 21:44 Dose: 400 mg Documented By: CROP Multivitamins/Vitamin C (Multivitamin Tablet) 1 tab PO DAILY [facility] Last Admin: 11/09/23 08:29 Dose: 1 tab Documented By: SILVESTRE Nicotine Polacrilex (Nicotine Polacrilex 2 Mg Gum) 4 mg BUCCAL 8XD PRN PRN Reason: nicotine addiction Last Admin: 11/09/23 08:30 Dose: 4 mg Documented By: SILVESTRE Ondansetron HCl (Ondansetron Hcl 4 Mg/2 Ml Vial) 4 mg IVPUSH Q8H PRN PRN Reason: Nausea and Vomiting Ondansetron HCl (Ondansetron Odt 4 Mg Tab.Rapdis) 4 mg TRANSLINGU Q6H PRN PRN Reason: Nausea and Vomiting Quetiapine Fumarate (Quetiapine Fumarate 50 Mg Tablet) 50 mg PO TID [facility] Last Admin: 11/09/23 08:29 Dose: 50 mg Documented By: SILVESTRE Quetiapine Fumarate (Quetiapine Fumarate 100 Mg Tablet) 100 mg PO Q6H PRN PRN Reason: agitation Last Admin: 10/30/23 21:42 Dose: 100 mg Documented By: COTEMA Labs 10/04/23 19:39 10/04/23 19:39 Assessment and Plan (1) Alcoholic Korsakoff syndrome: Status: Acute (2) Opioid use disorder: Status: Acute Plan d37 48yo F with OUD on Suboxone, AUD, Korsakoff syndrome initially presented to ED 09/19/23 with confusion, admitted for placement, guardianship hearing 10/09/23, awaiting LTC placement Korsakoff syndrome - continue quetiapine, valproate. per Psychiatry could consider increasing doses if behavioral dysregulation worsens OUD - Suboxone tobacco abuse - NRT VTE ppx - SCDs; pt ambulatory In my clinical judgment, the patient requires continued inpatient hospitalization for the following reasons: placement Total time managing care of this patient today: 25 minutes. Quality Stroke Does the patient have a stroke diagnosis?: No VTE Prior VTE?: No VTE Risk Level:: Medical - low VTE Device Contraindication: Treatment Not Indicated VTE Drug Contraindication: Treatment Not Indicated
--- NOTE | 2023-11-09 09:12 | PC.NURSE ---
Pt calm and cooperative with care this AM shift. Took medications. PRN APAP for h/a. Expressed relief.
--- NOTE | 2023-11-09 12:24 | P.CNPS_ITS ---
History of Present Illness Date of Service: 11/09/23 Chief Complaint: Awaiting guardianship Reason for Consult: Agitation Requesting physician: Miguel Medina Discussed with referring provider: Yes (texted) Sources of Information: patient interviewed and chart reviewed Additional Sources of Information: nursing staff HPI Narrative: Ms. Carlos is a 48 year-old woman with hx of korsokoff. Pt came via EMS looking for Clement who pt reports is her fiance and she wants to have a baby with him. Collateral information from her sister who reported Clement is caregiver who has been hire to look after her. Although pt is able to tell that this is [facility], and that it is August, pt unable to tell how long she has been in the hospital. She states she is living here. She is unable to tell hx of medical condition. When asked how is she planning to look for this person, pt states I'll just wait here. She reports drinking fluids but poor appetite. Pt appears manourished. And input was requested because of episodes of agitation and intrusiveness. She needed to be given IM medications yesterday. Past Psychiatric History: Unobtainable Review of Systems Review of Systems Yes Unobtainable due to mental status PMFSH Substance History: Pervasive a history of alcohol and opiate use, Trauma History: Unknown Diagnostics Vital Signs (24Hr): Vital Signs - 24 hr 11/08/23 19:15 11/09/23 03:41 11/09/23 07:51 Temperature 97.1 F 98.1 F 98.2 F Pulse Rate 66 64 78 Respiratory Rate 16 16 18 Blood Pressure 114/68 100/60 139/63 Pulse Oximetry 99 96 97 Oxygen Delivery Method Room Air Room Air Room Air BMI result Body Mass Index 22.7 Labs 10/04/23 19:39 10/04/23 19:39 Mental Status Exam Mental Status Exam Narrative: Attempted to see the patient today. She was standing in her room, eating off of her tray. She would not respond to any questions but is alert. She is unwilling to give any information. No dangerous behaviors other than the agitation last evening Medications Medications Current Medications Acetaminophen (Acetaminophen 325 Mg Tablet) 650 mg PO Q6H PRN PRN Reason: Pain, Mild (Pain Scale 1-3) Last Admin: 11/09/23 07:00 Dose: 650 mg Benzocaine (Throat Lozenge, Medicated Lozenge) 1 lozenge MUCOUS MEM Q2H PRN PRN Reason: Sore Throat Benzonatate (Benzonatate 100 Mg Capsule) 100 mg PO TID PRN PRN Reason: Cough Buprenorphine/Naloxone (Buprenorphine/Naloxone 8/2 Mg Film) 1 film SUBLINGUAL BID [facility] Last Admin: 11/09/23 08:30 Dose: 1 film Divalproex Sodium (Divalproex Sodium 250 Mg Tablet.Dr) 250 mg PO TID [facility] Last Admin: 11/09/23 08:29 Dose: 250 mg Docusate Sodium (Docusate Sodium 100 Mg Capsule) 100 mg PO DAILY PRN PRN Reason: Constipation Magnesium Oxide (Magnesium Oxide 400 Mg Tablet) 400 mg PO BEDTIME [facility] Last Admin: 11/08/23 21:44 Dose: 400 mg Multivitamins/Vitamin C (Multivitamin Tablet) 1 tab PO DAILY [facility] Last Admin: 11/09/23 08:29 Dose: 1 tab Nicotine Polacrilex (Nicotine Polacrilex 2 Mg Gum) 4 mg BUCCAL Q2H PRN PRN Reason: nicotine addiction Ondansetron HCl (Ondansetron Hcl 4 Mg/2 Ml Vial) 4 mg IVPUSH Q8H PRN PRN Reason: Nausea and Vomiting Ondansetron HCl (Ondansetron Odt 4 Mg Tab.Rapdis) 4 mg TRANSLINGU Q6H PRN PRN Reason: Nausea and Vomiting Quetiapine Fumarate (Quetiapine Fumarate 50 Mg Tablet) 50 mg PO TID [facility] Last Admin: 11/09/23 08:29 Dose: 50 mg Quetiapine Fumarate (Quetiapine Fumarate 100 Mg Tablet) 100 mg PO Q6H PRN PRN Reason: agitation Last Admin: 10/30/23 21:42 Dose: 100 mg Allergies Allergies Allergy/AdvReac Type Severity Reaction Status Date / Time Penicillins [PENICILLINS] Allergy Mild HIVES Verified 09/19/23 16:35 Antihistamines - Alkylamine AdvReac Intermediate feels like Verified 09/19/23 16:35 [ANTIHISTAMINES - ALKYLAMINE] bugs are crawling on her hydroxyzine [From VISTARIL] AdvReac Intermediate feels like Verified 09/19/23 16:35 bugs are crawling on her GRASS Allergy Mild UNKNOWN Uncoded 06/21/23 11:12 Assessment & Plan Assessment & Plan (1) Alcoholic Korsakoff syndrome: Status: Acute Code(s): 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 I would suggest continuing the current p.r.n. p.o. medications and use of Zyprexa 5 mg IM for agitation in addition to Ativan 1 mg IM. I also would suggest adding Risperdal 1 mg b.i.d. as a standing dose and possibility of increasing it to 2 mg b.i.d. in a few days if not that helpful. Total time managing care of this patient today ____ minutes. Patient educated on: diagnosis and medication risk/benefits
[2023-11-09 15:37] VITALS: BP 121/69; PULSE 87; RESP 18; TEMP 36.6; O2SAT 98
[2023-11-09 19:57] VITALS: BP 100/55; PULSE 86; RESP 18; TEMP 36.6; O2SAT 95
[2023-11-09] MEDS: Magnesium Oxide 400 MG TABLET PO (21:02)
[2023-11-09] MEDS: risperiDONE 1 MG TABLET PO (21:02)
[2023-11-10 03:26] VITALS: BP 112/57; PULSE 84; RESP 16; TEMP 36.2
[2023-11-10] MEDS: Nicotine Polacrilex 2 MG GUM 4 MG BUCCAL ×4 (04:25→20:26)
[2023-11-10 07:29] VITALS: BP 118/76; PULSE 85; RESP 16; TEMP 36.4; O2SAT 99
[2023-11-10] MEDS: Divalproex Sodium 250 MG TABLET.DR PO ×3 (09:37→20:26)
[2023-11-10] MEDS: risperiDONE 1 MG TABLET PO ×2 (09:37→20:26)
[2023-11-10] MEDS: Acetaminophen 325 MG TABLET 650 MG PO ×2 (09:37→20:26)
[2023-11-10] MEDS: Multivitamin TABLET 1 TAB PO (09:37)
[2023-11-10] MEDS: Buprenorphine/Naloxone 8/2 mg FILM 1 FILM SUBLINGUAL ×2 (09:44→20:26)
--- NOTE | 2023-11-10 10:27 | P.PNIM_ITS ---
Subjective Subjective Date of Service: 11/10/23 Interval History: agitation controlled, no complaints Review of Systems Review of Systems: Yes all other systems are reviewed and are negative Physical Exam 2 Vital Signs: Vital Signs: Last Vital Signs Temp 97.5 F 11/10/23 07:29 Pulse 85 11/10/23 07:29 Resp 16 11/10/23 07:29 BP 118/76 11/10/23 07:29 Pulse Ox 99 11/10/23 07:29 O2 Del Method Room Air 11/10/23 07:29 O2 Flow Rate 3 10/05/23 16:00 BMI result Body Mass Index 22.7 Gen: in no acute distress Lungs: normal resp effort Neuro: alert, no focal weakness Psych: impaired insight Objective Data Active Medications Acetaminophen (Acetaminophen 325 Mg Tablet) 650 mg PO Q6H PRN PRN Reason: Pain, Mild (Pain Scale 1-3) Last Admin: 11/10/23 09:37 Dose: 650 mg Documented By: SHERRON Benzocaine (Throat Lozenge, Medicated Lozenge) 1 lozenge MUCOUS MEM Q2H PRN PRN Reason: Sore Throat Benzonatate (Benzonatate 100 Mg Capsule) 100 mg PO TID PRN PRN Reason: Cough Buprenorphine/Naloxone (Buprenorphine/Naloxone 8/2 Mg Film) 1 film SUBLINGUAL BID [facility] Last Admin: 11/10/23 09:44 Dose: 1 film Documented By: SHERRON Divalproex Sodium (Divalproex Sodium 250 Mg Tablet.Dr) 250 mg PO TID [facility] Last Admin: 11/10/23 09:37 Dose: 250 mg Documented By: SHERRON Docusate Sodium (Docusate Sodium 100 Mg Capsule) 100 mg PO DAILY PRN PRN Reason: Constipation Lorazepam (Lorazepam 2 Mg/Ml Vial) 1 mg IM DAILY PRN PRN Reason: severe agitation Magnesium Oxide (Magnesium Oxide 400 Mg Tablet) 400 mg PO BEDTIME [facility] Last Admin: 11/09/23 21:02 Dose: 400 mg Documented By: JACKI Multivitamins/Vitamin C (Multivitamin Tablet) 1 tab PO DAILY [facility] Last Admin: 11/10/23 09:37 Dose: 1 tab Documented By: SHERRON Nicotine Polacrilex (Nicotine Polacrilex 2 Mg Gum) 4 mg BUCCAL Q2H PRN PRN Reason: nicotine addiction Last Admin: 11/10/23 09:42 Dose: 4 mg Documented By: SHERRON Olanzapine (Olanzapine 10 Mg Vial) 5 mg IM DAILY PRN PRN Reason: severe agitation Ondansetron HCl (Ondansetron Hcl 4 Mg/2 Ml Vial) 4 mg IVPUSH Q8H PRN PRN Reason: Nausea and Vomiting Ondansetron HCl (Ondansetron Odt 4 Mg Tab.Rapdis) 4 mg TRANSLINGU Q6H PRN PRN Reason: Nausea and Vomiting Risperidone (Risperidone 1 Mg Tablet) 1 mg PO BID [facility] Last Admin: 11/10/23 09:37 Dose: 1 mg Documented By: SHERRON Labs 10/04/23 19:39 10/04/23 19:39 Assessment and Plan (1) Alcoholic Korsakoff syndrome: Status: Acute (2) Opioid use disorder: Status: Acute Plan [id number] 48yo F with OUD on Suboxone, AUD, Korsakoff syndrome initially presented to ED 09/19/23 with confusion, admitted for placement, guardianship hearing 10/09/23, awaiting LTC placement Korsakoff syndrome - Psychiatry re-consulted 11/08. Continue valproate. Changed quetiapine to risperidone; may increase from 1 mg to 2 mg bid in a few days if needed. Zyprexa 5 mg IM + Ativan 1 mg IM for breakthrough agitation,. OUD - Suboxone tobacco abuse - NRT VTE ppx - SCDs; pt ambulatory In my clinical judgment, the patient requires continued inpatient hospitalization for the following reasons: placement Total time managing care of this patient today: 25 minutes. Quality Stroke Does the patient have a stroke diagnosis?: No VTE Prior VTE?: No VTE Risk Level:: Medical - low VTE Device Contraindication: Treatment Not Indicated VTE Drug Contraindication: Treatment Not Indicated
[2023-11-10 16:00] VITALS: BP 114/53; PULSE 82; RESP 18; TEMP 36.2; O2SAT 97
[2023-11-10 19:26] VITALS: BP 135/63; PULSE 78; RESP 16; TEMP 36.2; O2SAT 96
[2023-11-10] MEDS: Magnesium Oxide 400 MG TABLET PO (20:26)
[2023-11-11] MEDS: Nicotine Polacrilex 2 MG GUM 4 MG BUCCAL ×4 (02:12→20:47)
[2023-11-11] MEDS: Acetaminophen 325 MG TABLET 650 MG PO ×4 (02:13→20:30)
[2023-11-11 04:00] VITALS: BP 117/59; PULSE 83; RESP 16; TEMP 36.4; O2SAT 100
[2023-11-11] MEDS: risperiDONE 1 MG TABLET PO ×2 (07:46→20:30)
[2023-11-11] MEDS: Buprenorphine/Naloxone 8/2 mg FILM 1 FILM SUBLINGUAL ×2 (07:46→20:30)
[2023-11-11] MEDS: Divalproex Sodium 250 MG TABLET.DR PO ×3 (07:46→20:30)
[2023-11-11] MEDS: Multivitamin TABLET 1 TAB PO (07:46)
[2023-11-11 07:59] VITALS: BP 109/63; PULSE 84; RESP 18; TEMP 36.7; O2SAT 98
--- NOTE | 2023-11-11 11:36 | MHC.CM.PN ---
EMR reviewed. No change to dc plan - awaiting LTC. No bed offers at this time.
--- NOTE | 2023-11-11 14:19 | P.PNIM_ITS ---
Subjective Subjective Date of Service: 11/11/23 Interval History: No acute issues overnight. No behavioral problems Review of Systems Denies chest pain Denies shortness of breath Denies nausea vomiting diarrhea Denies fever chills Physical Exam 2 Vital Signs: Vital Signs: Last Vital Signs Temp 98.0 F 11/11/23 07:59 Pulse 84 11/11/23 07:59 Resp 18 11/11/23 07:59 BP 109/63 11/11/23 07:59 Pulse Ox 98 11/11/23 07:59 O2 Del Method Room Air 11/11/23 07:59 O2 Flow Rate 3 10/05/23 16:00 BMI result Body Mass Index 22.7 Const: Other: Awake alert confused Resp: Other: Clear to auscultation bilaterally no rales rhonchi or wheezes Cardio: Other: No S4; positive S1-S2; no S3 murmurs rubs or gallops GI: Other: Soft nontender nondistended normoactive bowel sounds Extrem: Other: No edema bilaterally Objective Data Active Medications Acetaminophen (Acetaminophen 325 Mg Tablet) 650 mg PO Q6H PRN PRN Reason: Pain, Mild (Pain Scale 1-3) Last Admin: 11/11/23 13:47 Dose: 650 mg Documented By: CHRISTOFER Benzocaine (Throat Lozenge, Medicated Lozenge) 1 lozenge MUCOUS MEM Q2H PRN PRN Reason: Sore Throat Benzonatate (Benzonatate 100 Mg Capsule) 100 mg PO TID PRN PRN Reason: Cough Buprenorphine/Naloxone (Buprenorphine/Naloxone 8/2 Mg Film) 1 film SUBLINGUAL BID [facility] Last Admin: 11/11/23 07:46 Dose: 1 film Documented By: CHRISTOFER Divalproex Sodium (Divalproex Sodium 250 Mg Tablet.Dr) 250 mg PO TID [facility] Last Admin: 11/11/23 13:47 Dose: 250 mg Documented By: CHRISTOFER Docusate Sodium (Docusate Sodium 100 Mg Capsule) 100 mg PO DAILY PRN PRN Reason: Constipation Lorazepam (Lorazepam 2 Mg/Ml Vial) 1 mg IM DAILY PRN PRN Reason: severe agitation Magnesium Oxide (Magnesium Oxide 400 Mg Tablet) 400 mg PO BEDTIME [facility] Last Admin: 11/10/23 20:26 Dose: 400 mg Documented By: SHERRON Multivitamins/Vitamin C (Multivitamin Tablet) 1 tab PO DAILY [facility] Last Admin: 11/11/23 07:46 Dose: 1 tab Documented By: CHRISTOFER Nicotine Polacrilex (Nicotine Polacrilex 2 Mg Gum) 4 mg BUCCAL Q2H PRN PRN Reason: nicotine addiction Last Admin: 11/11/23 13:47 Dose: 4 mg Documented By: CHRISTOFER Olanzapine (Olanzapine 10 Mg Vial) 5 mg IM DAILY PRN PRN Reason: severe agitation Ondansetron HCl (Ondansetron Hcl 4 Mg/2 Ml Vial) 4 mg IVPUSH Q8H PRN PRN Reason: Nausea and Vomiting Ondansetron HCl (Ondansetron Odt 4 Mg Tab.Rapdis) 4 mg TRANSLINGU Q6H PRN PRN Reason: Nausea and Vomiting Risperidone (Risperidone 1 Mg Tablet) 1 mg PO BID [facility] Last Admin: 11/11/23 07:46 Dose: 1 mg Documented By: CHRISTOFER Labs 10/04/23 19:39 10/04/23 19:39 Assessment and Plan (1) Alcoholic Korsakoff syndrome: Status: Acute Plan Pt is a 48-year-old female with a PMH significant for opioid use disorder on Suboxone, alcohol use disorder, and Korsakoff's syndrome? who initially presented to the ED on?09/19/2023 looking for her Clement that she had not seen for a few days. Pt apparently had heard he was at this hospital so she called an ambulance to bring her here. Pt will be admitted to the hospital while awaiting guardianship and LTC placement. Guardianship hearing is scheduled for 10/09/2023. 1.Alcohol Korsakoff's syndrome -Continue Seroquel, Depakote -continue to be without aggressive behavior 2.Opioid use disorder -Continue Suboxone Full Code Pt ambulatory. Pt will require a hospitalization pending guardianship and safe placement Quality Stroke Does the patient have a stroke diagnosis?: No VTE Prior VTE?: No VTE Risk Level:: Medical - low VTE Device Contraindication: Treatment Not Indicated VTE Drug Contraindication: Treatment Not Indicated
[2023-11-11 14:53] VITALS: BP 107/54; PULSE 75; RESP 16; TEMP 36.6; O2SAT 96
[2023-11-11 19:39] VITALS: BP 120/63; PULSE 78; RESP 20; TEMP 36.3; O2SAT 98
[2023-11-11 20:00] VITALS: BP 120/63; PULSE 78; RESP 20; TEMP 36.2; O2SAT 97
[2023-11-11] MEDS: Magnesium Oxide 400 MG TABLET PO (20:30)
[2023-11-12 03:07] VITALS: BP 110/59; PULSE 62; RESP 18; TEMP 36.2; O2SAT 98
[2023-11-12 07:41] VITALS: BP 114/68; PULSE 62; RESP 16; TEMP 36.2; O2SAT 97
[2023-11-12] MEDS: Multivitamin TABLET 1 TAB PO (08:00)
[2023-11-12] MEDS: Divalproex Sodium 250 MG TABLET.DR PO ×3 (08:00→20:21)
[2023-11-12] MEDS: risperiDONE 1 MG TABLET PO ×2 (08:00→20:21)
[2023-11-12] MEDS: Buprenorphine/Naloxone 8/2 mg FILM 1 FILM SUBLINGUAL ×2 (08:00→20:30)
[2023-11-12] MEDS: Nicotine Polacrilex 2 MG GUM 4 MG BUCCAL ×6 (08:04→23:31)
[2023-11-12] MEDS: Acetaminophen 325 MG TABLET 650 MG PO ×3 (08:05→20:30)
--- NOTE | 2023-11-12 10:52 | MHC.CM.PN ---
Addendum entered by Shahana Bruno RN 11/12/23 11:17: FS ATTEMPTED TO CONTACT MEDICARE HOWEVER THEY WOULD NOOT RELEASE INFO AND WOULD NEED PT/GUARDIAN TO SIGN AUTH FORM THAT NEEDS TO BE SNAIL MAILED AND TAKES 30DAYS TO PROCESS, FS TO REACH OUT TO GUARDIAN TO SEE IF THEY HAVE ACCESS PER REC FROM MED[employer]. Original Note: EMR REVIEWED, CM RECEIVED CALL FROM FS REPORTING PER PT HAS STANDARD #[id number] AND THAT PT RECEIVES SSD, PER FS MH ALSO REPORTING PT HAS MEDICARE HOWEVER THEY ONLYM HAD OLD MEDICARE NUMEBR WHICH IS SS# FOLLOWED BY AN A AND THAT THEY CANNOT DO THE LTC JOSE MANUEL D/T THE MEDICARE, CM WILL DISCUSS W/CM DIRECTOR. CM CONTACTED INSURANCE VERIFICATION HOWEVER THEY WERE UNABLE TO LOCATE PT UNDER MEDICARE.
--- NOTE | 2023-11-12 15:13 | P.PNIM_ITS ---
Subjective Subjective Date of Service: 11/12/23 Interval History: No acute issues overnight. No behavioral problems Review of Systems Denies chest pain Denies shortness of breath Denies nausea vomiting diarrhea Denies fever chills Physical Exam 2 Vital Signs: Vital Signs: Last Vital Signs Temp 97.2 F 11/12/23 07:41 Pulse 62 11/12/23 07:41 Resp 16 11/12/23 07:41 BP 114/68 11/12/23 07:41 Pulse Ox 97 11/12/23 07:41 O2 Del Method Room Air 11/12/23 07:41 O2 Flow Rate 3 10/05/23 16:00 BMI result Body Mass Index 22.7 Const: Other: Awake alert confused Resp: Other: Clear to auscultation bilaterally no rales rhonchi or wheezes Cardio: Other: No S4; positive S1-S2; no S3 murmurs rubs or gallops GI: Other: Soft nontender nondistended normoactive bowel sounds Extrem: Other: No edema bilaterally Objective Data Active Medications Acetaminophen (Acetaminophen 325 Mg Tablet) 650 mg PO Q6H PRN PRN Reason: Pain, Mild (Pain Scale 1-3) Last Admin: 11/12/23 14:16 Dose: 650 mg Documented By: MARIBEL Benzocaine (Throat Lozenge, Medicated Lozenge) 1 lozenge MUCOUS MEM Q2H PRN PRN Reason: Sore Throat Benzonatate (Benzonatate 100 Mg Capsule) 100 mg PO TID PRN PRN Reason: Cough Buprenorphine/Naloxone (Buprenorphine/Naloxone 8/2 Mg Film) 1 film SUBLINGUAL BID [facility] Last Admin: 11/12/23 08:00 Dose: 1 film Documented By: MARIBEL Divalproex Sodium (Divalproex Sodium 250 Mg Tablet.Dr) 250 mg PO TID [facility] Last Admin: 11/12/23 14:15 Dose: 250 mg Documented By: MARIBEL Docusate Sodium (Docusate Sodium 100 Mg Capsule) 100 mg PO DAILY PRN PRN Reason: Constipation Lorazepam (Lorazepam 2 Mg/Ml Vial) 1 mg IM DAILY PRN PRN Reason: severe agitation Magnesium Oxide (Magnesium Oxide 400 Mg Tablet) 400 mg PO BEDTIME [facility] Last Admin: 11/11/23 20:30 Dose: 400 mg Documented By: LUCIO Multivitamins/Vitamin C (Multivitamin Tablet) 1 tab PO DAILY [facility] Last Admin: 11/12/23 08:00 Dose: 1 tab Documented By: MARIBEL Nicotine Polacrilex (Nicotine Polacrilex 2 Mg Gum) 4 mg BUCCAL Q2H PRN PRN Reason: nicotine addiction Last Admin: 11/12/23 13:13 Dose: 4 mg Documented By: [place] Olanzapine (Olanzapine 10 Mg Vial) 5 mg IM DAILY PRN PRN Reason: severe agitation Ondansetron HCl (Ondansetron Hcl 4 Mg/2 Ml Vial) 4 mg IVPUSH Q8H PRN PRN Reason: Nausea and Vomiting Ondansetron HCl (Ondansetron Odt 4 Mg Tab.Rapdis) 4 mg TRANSLINGU Q6H PRN PRN Reason: Nausea and Vomiting Risperidone (Risperidone 1 Mg Tablet) 1 mg PO BID [facility] Last Admin: 11/12/23 08:00 Dose: 1 mg Documented By: MARIBEL Labs 10/04/23 19:39 10/04/23 19:39 Assessment and Plan (1) Alcoholic Korsakoff syndrome: Status: Acute Plan Pt is a 48-year-old female with a PMH significant for opioid use disorder on Suboxone, alcohol use disorder, and Korsakoff's syndrome? who initially presented to the ED on?09/19/2023 looking for her Clement that she had not seen for a few days. Pt apparently had heard he was at this hospital so she called an ambulance to bring her here. Pt will be admitted to the hospital while awaiting guardianship and LTC placement. Guardianship hearing is scheduled for 10/09/2023. 1.Alcohol Korsakoff's syndrome -Continue Seroquel, Depakote -continue to be without aggressive behavior 2.Opioid use disorder -Continue Suboxone Full Code Pt ambulatory. Pt will require a hospitalization pending guardianship and safe placement Quality Stroke Does the patient have a stroke diagnosis?: No VTE Prior VTE?: No VTE Risk Level:: Medical - low VTE Device Contraindication: Treatment Not Indicated VTE Drug Contraindication: Treatment Not Indicated
[2023-11-12 15:28] VITALS: BP 119/57; PULSE 76; RESP 16; TEMP 36.4; O2SAT 95
[2023-11-12 19:47] VITALS: BP 121/57; PULSE 76; RESP 18; TEMP 36.3; O2SAT 95
[2023-11-12] MEDS: Magnesium Oxide 400 MG TABLET PO (20:21)
[2023-11-13 04:00] VITALS: BP 119/66; PULSE 64; RESP 16; TEMP 36.9; O2SAT 95
[2023-11-13] MEDS: Acetaminophen 325 MG TABLET 650 MG PO ×3 (07:14→20:03)
[2023-11-13] MEDS: Multivitamin TABLET 1 TAB PO (07:14)
[2023-11-13] MEDS: risperiDONE 1 MG TABLET PO ×2 (07:15→20:38)
[2023-11-13] MEDS: Buprenorphine/Naloxone 8/2 mg FILM 1 FILM SUBLINGUAL ×2 (07:15→20:38)
[2023-11-13] MEDS: Nicotine Polacrilex 2 MG GUM 4 MG BUCCAL ×3 (07:15→20:02)
[2023-11-13] MEDS: Divalproex Sodium 250 MG TABLET.DR PO ×3 (07:15→20:38)
[2023-11-13 07:25] VITALS: BP 109/58; PULSE 69; RESP 18; TEMP 36.4; O2SAT 97
--- NOTE | 2023-11-13 10:24 | PC.NURSE ---
patient has been pleasant and cooperative with care, nicotine gum given per request, patient oob steady
--- NOTE | 2023-11-13 10:41 | MHC.CM.PN ---
Addendum entered by Jihan Butler RN 11/13/23 13:14: Per previous CM - potential plan for suboxone taper was discussed with addition team. Per conversation with disaster recovery coordinator today, patient will not be tapered off suboxone. Original Note: EMR reviewed. No changes to dc plan. Referrals expanded and updates sent to existing referrals, including [facility] #[id number]. [facility] looking for beds in all [facility] facilities. No bed offers at this time. CM will continue to follow.
--- NOTE | 2023-11-13 12:06 | HO.PM.IMPN ---
Subjective Subjective Date of Service: 11/13/23 Interval History: No acute issues overnight. No behavioral problems Review of Systems Denies chest pain Denies shortness of breath Denies nausea vomiting diarrhea Denies fever chills Physical Exam Vital Signs: Vital Signs: Last Vital Signs Temp 97.5 F 11/13/23 07:25 Pulse 69 11/13/23 07:25 Resp 18 11/13/23 07:25 BP 109/58 L 11/13/23 07:25 Pulse Ox 97 11/13/23 07:25 O2 Del Method Room Air 11/13/23 07:25 O2 Flow Rate 3 10/05/23 16:00 BMI result Body Mass Index 22.7 Const: Other: Awake alert confused Resp: Other: Clear to auscultation bilaterally no rales rhonchi or wheezes Cardio: Other: No S4; positive S1-S2; no S3 murmurs rubs or gallops GI: Other: Soft nontender nondistended normoactive bowel sounds Extrem: Other: No edema bilaterally Objective Data Active Medications Acetaminophen (Acetaminophen 325 Mg Tablet) 650 mg PO Q6H PRN PRN Reason: Pain, Mild (Pain Scale 1-3) Last Admin: 11/13/23 07:14 Dose: 650 mg Documented By: CHRISTOFER Benzocaine (Throat Lozenge, Medicated Lozenge) 1 lozenge MUCOUS MEM Q2H PRN PRN Reason: Sore Throat Benzonatate (Benzonatate 100 Mg Capsule) 100 mg PO TID PRN PRN Reason: Cough Buprenorphine/Naloxone (Buprenorphine/Naloxone 8/2 Mg Film) 1 film SUBLINGUAL BID [facility] Last Admin: 11/13/23 07:15 Dose: 1 film Documented By: CHRISTOFER Divalproex Sodium (Divalproex Sodium 250 Mg Tablet.Dr) 250 mg PO TID [facility] Last Admin: 11/13/23 07:15 Dose: 250 mg Documented By: CHRISTOFER Docusate Sodium (Docusate Sodium 100 Mg Capsule) 100 mg PO DAILY PRN PRN Reason: Constipation Lorazepam (Lorazepam 2 Mg/Ml Vial) 1 mg IM DAILY PRN PRN Reason: severe agitation Magnesium Oxide (Magnesium Oxide 400 Mg Tablet) 400 mg PO BEDTIME [facility] Last Admin: 11/12/23 20:21 Dose: 400 mg Documented By: LUCIO Multivitamins/Vitamin C (Multivitamin Tablet) 1 tab PO DAILY [facility] Last Admin: 11/13/23 07:14 Dose: 1 tab Documented By: CHRITSOFER Nicotine Polacrilex (Nicotine Polacrilex 2 Mg Gum) 4 mg BUCCAL Q2H PRN PRN Reason: nicotine addiction Last Admin: 11/13/23 07:15 Dose: 4 mg Documented By: CHRISTOFER Olanzapine (Olanzapine 10 Mg Vial) 5 mg IM DAILY PRN PRN Reason: severe agitation Ondansetron HCl (Ondansetron Hcl 4 Mg/2 Ml Vial) 4 mg IVPUSH Q8H PRN PRN Reason: Nausea and Vomiting Ondansetron HCl (Ondansetron Odt 4 Mg Tab.Rapdis) 4 mg TRANSLINGU Q6H PRN PRN Reason: Nausea and Vomiting Risperidone (Risperidone 1 Mg Tablet) 1 mg PO BID [facility] Last Admin: 11/13/23 07:15 Dose: 1 mg Documented By: CRHISTOFER Labs 10/04/23 19:39 10/04/23 19:39 Assessment and Plan (1) Alcoholic Korsakoff syndrome: Status: Acute Plan Pt is a 48-year-old female with a PMH significant for opioid use disorder on Suboxone, alcohol use disorder, and Korsakoff's syndrome? who initially presented to the ED on?09/19/2023 looking for her Clement that she had not seen for a few days. Pt apparently had heard he was at this hospital so she called an ambulance to bring her here. Pt will be admitted to the hospital while awaiting guardianship and LTC placement. Guardianship hearing is scheduled for 10/09/2023. 1.Alcohol Korsakoff's syndrome -Continue Seroquel, Depakote -continue to be without aggressive behavior 2.Opioid use disorder -Continue Suboxone Full Code Pt ambulatory. Pt will require a hospitalization pending guardianship and safe placement Quality Stroke Does the patient have a stroke diagnosis?: No VTE Prior VTE?: No VTE Risk Level:: Medical - low VTE Device Contraindication: Treatment Not Indicated VTE Drug Contraindication: Treatment Not Indicated
[2023-11-13 15:31] VITALS: BP 99/52; PULSE 78; RESP 20; TEMP 36.6; O2SAT 97
--- NOTE | 2023-11-13 19:15 | PC.NURSE ---
Assumed care at 1500, patient pacing in the room, but compliant, cooperating, frequently asking for beverage,
[2023-11-13 20:00] VITALS: BP 131/77; PULSE 73; RESP 18; TEMP 36.3; O2SAT 98
[2023-11-13] MEDS: Magnesium Oxide 400 MG TABLET PO (20:38)
[2023-11-14] MEDS: Acetaminophen 325 MG TABLET 650 MG PO ×3 (02:32→14:47)
[2023-11-14 04:00] VITALS: BP 98/54; PULSE 65; RESP 16; TEMP 36.7; O2SAT 94
[2023-11-14 07:30] VITALS: BP 106/58; PULSE 70; RESP 16; TEMP 36.2; O2SAT 98
[2023-11-14] MEDS: Multivitamin TABLET 1 TAB PO (08:57)
[2023-11-14] MEDS: risperiDONE 1 MG TABLET PO ×2 (08:57→19:20)
[2023-11-14] MEDS: Divalproex Sodium 250 MG TABLET.DR PO ×3 (08:57→19:19)
[2023-11-14] MEDS: Buprenorphine/Naloxone 8/2 mg FILM 1 FILM SUBLINGUAL ×2 (08:58→19:20)
[2023-11-14] MEDS: Nicotine Polacrilex 2 MG GUM 4 MG BUCCAL ×5 (09:04→23:56)
[2023-11-14 15:23] VITALS: BP 117/58; PULSE 74; RESP 16; TEMP 36.2; O2SAT 98
--- NOTE | 2023-11-14 16:24 | P.PNIM_ITS ---
Subjective Subjective Date of Service: 11/14/23 Interval History: seen and examined this morning follow up for placement awake, alert and folding towels in her room this morning no overnight events offers no complaints Review of Systems Review of Systems: Yes all other systems are reviewed and are negative Constitutional Constitutional: Denies fever(s) Cardiovascular Cardiovascular: Denies chest pain Gastrointestinal Gastrointestinal: Denies abdominal pain Physical Exam 2 Vital Signs: Vital Signs: Last Vital Signs Temp 97.2 F 11/14/23 15:23 Pulse 74 11/14/23 15:23 Resp 16 11/14/23 15:23 BP 117/58 L 11/14/23 15:23 Pulse Ox 98 11/14/23 15:23 O2 Del Method Room Air 11/14/23 15:23 O2 Flow Rate 3 10/05/23 16:00 BMI result Body Mass Index 22.7 Const: General: cooperative, comfortable, no acute distress, alert and awake Nutritional Appearance: average body habitus Resp: Effort & Inspection: normal respiratory effort, able to speak in complete sentences, no respiratory distress and no use of accessory muscles Cardio: Rate: regular rate Neuro: Other: ambulating in room, grossly nonfocal, moving all extremities Objective Data Active Medications Acetaminophen (Acetaminophen 325 Mg Tablet) 650 mg PO Q6H PRN PRN Reason: Pain, Mild (Pain Scale 1-3) Last Admin: 11/14/23 14:47 Dose: 650 mg Documented By: KIERA Benzocaine (Throat Lozenge, Medicated Lozenge) 1 lozenge MUCOUS MEM Q2H PRN PRN Reason: Sore Throat Benzonatate (Benzonatate 100 Mg Capsule) 100 mg PO TID PRN PRN Reason: Cough Buprenorphine/Naloxone (Buprenorphine/Naloxone 8/2 Mg Film) 1 film SUBLINGUAL BID [facility] Last Admin: 11/14/23 08:58 Dose: 1 film Documented By: KIERA Divalproex Sodium (Divalproex Sodium 250 Mg Tablet.) 250 mg PO TID [facility] Last Admin: 11/14/23 14:46 Dose: 250 mg Documented By: KIERA Docusate Sodium (Docusate Sodium 100 Mg Capsule) 100 mg PO DAILY PRN PRN Reason: Constipation Magnesium Oxide (Magnesium Oxide 400 Mg Tablet) 400 mg PO BEDTIME [facility] Last Admin: 03/20/24 20:38 Dose: 400 mg Documented By: JACKI Multivitamins/Vitamin C (Multivitamin Tablet) 1 tab PO DAILY [facility] Last Admin: 11/14/23 08:57 Dose: 1 tab Documented By: KIERA Nicotine Polacrilex (Nicotine Polacrilex 2 Mg Gum) 4 mg BUCCAL Q2H PRN PRN Reason: nicotine addiction Last Admin: 11/14/23 14:45 Dose: 4 mg Documented By: KIERA Olanzapine (Olanzapine 10 Mg Vial) 5 mg IM DAILY PRN PRN Reason: severe agitation Ondansetron HCl (Ondansetron Hcl 4 Mg/2 Ml Vial) 4 mg IVPUSH Q8H PRN PRN Reason: Nausea and Vomiting Ondansetron HCl (Ondansetron Odt 4 Mg Tab.Rapdis) 4 mg TRANSLINGU Q6H PRN PRN Reason: Nausea and Vomiting Risperidone (Risperidone 1 Mg Tablet) 1 mg PO BID [facility] Last Admin: 11/14/23 08:57 Dose: 1 mg Documented By: KIERA Labs 10/04/23 19:39 10/04/23 19:39 Assessment and Plan (1) Alcoholic Korsakoff syndrome: Status: Acute Plan Pt is a 48-year-old female with a PMH significant for opioid use disorder on Suboxone, alcohol use disorder, and Korsakoff's syndrome? who initially presented to the ED on?09/19/2023 looking for her Clement that she had not seen for a few days. Pt apparently had heard he was at this hospital so she called an ambulance to bring her here. Pt will be admitted to the hospital while awaiting guardianship and LTC placement. 1.Alcohol Korsakoff's syndrome -Continue Seroquel, Depakote -continue to be without aggressive behavior 2.Opioid use disorder -Continue Suboxone Full Code Pt ambulatory. Requires ongoing hospitalization for guardianship and safe placement, awaiting LTC Quality Stroke Does the patient have a stroke diagnosis?: No VTE Prior VTE?: No VTE Risk Level:: Medical - low VTE Device Contraindication: Treatment Not Indicated VTE Drug Contraindication: Treatment Not Indicated
[2023-11-14] MEDS: Magnesium Oxide 400 MG TABLET PO (19:19)
[2023-11-14 19:53] VITALS: BP 127/67; PULSE 81; RESP 18; TEMP 36.7; O2SAT 99
--- NOTE | 2023-11-14 21:47 | PC.NURSE ---
on the beginning of shift, pt started pulling out power cord out of camera in room multiple times. pt educated on safety numerous times with mix result. [facility]
[2023-11-15 03:24] VITALS: BP 133/71; PULSE 66; RESP 16; TEMP 36.2; O2SAT 97
[2023-11-15 07:30] VITALS: BP 108/68; PULSE 68; RESP 16; TEMP 36.6; O2SAT 98
[2023-11-15] MEDS: Acetaminophen 325 MG TABLET 650 MG PO ×2 (08:46→14:54)
[2023-11-15] MEDS: Divalproex Sodium 250 MG TABLET.DR PO ×3 (08:46→19:44)
[2023-11-15] MEDS: Multivitamin TABLET 1 TAB PO (08:46)
[2023-11-15] MEDS: risperiDONE 1 MG TABLET PO ×2 (08:46→19:45)
[2023-11-15] MEDS: Buprenorphine/Naloxone 8/2 mg FILM 1 FILM SUBLINGUAL ×2 (08:47→19:46)
--- NOTE | 2023-11-15 11:25 | MHC.CM.PN ---
Addendum entered by Jihan Butler RN 11/15/23 12:40: Per FS - patient still currently enrolled in [facility]. However, once there is an accepting facility will need SOC-1 to convert benefits to LTC coverage. Original Note: EMR reviewed. No changes to dc plan. Referrals expanded. No bed offers at this time. CM will continue to follow.
[2023-11-15] MEDS: Nicotine Polacrilex 2 MG GUM 4 MG BUCCAL ×3 (13:14→19:44)
[2023-11-15 15:34] VITALS: BP 122/55; PULSE 73; RESP 16; TEMP 36.8; O2SAT 99
--- NOTE | 2023-11-15 15:48 | P.PNIM_ITS ---
Subjective Subjective Date of Service: 11/15/23 Interval History: seen and examined this morning follow up for placement no overnight events no specific complaints this morning Review of Systems Review of Systems: Yes all other systems are reviewed and are negative Constitutional Constitutional: Denies chills and Denies fever(s) Cardiovascular Cardiovascular: Denies chest pain Physical Exam 2 Vital Signs: Vital Signs: Last Vital Signs Temp 98.2 F 11/15/23 15:34 Pulse 73 11/15/23 15:34 Resp 16 11/15/23 15:34 BP 122/55 L 11/15/23 15:34 Pulse Ox 99 11/15/23 15:34 O2 Del Method Room Air 11/15/23 15:34 O2 Flow Rate 3 10/05/23 16:00 BMI result Body Mass Index 22.7 Const: General: cooperative, comfortable, no acute distress, alert and awake Nutritional Appearance: average body habitus Resp: Effort & Inspection: normal respiratory effort, able to speak in complete sentences, no respiratory distress and no use of accessory muscles Cardio: Rate: regular rate GI: Inspection: No distended Palpation (GI): Soft to palpation Neuro: Other: ambulating in room, grossly nonfocal, moving all extremities Extrem: General: Yes no pedal edema Objective Data Active Medications Acetaminophen (Acetaminophen 325 Mg Tablet) 650 mg PO Q6H PRN PRN Reason: Pain, Mild (Pain Scale 1-3) Last Admin: 11/15/23 14:54 Dose: 650 mg Documented By: ANNA Benzocaine (Throat Lozenge, Medicated Lozenge) 1 lozenge MUCOUS MEM Q2H PRN PRN Reason: Sore Throat Benzonatate (Benzonatate 100 Mg Capsule) 100 mg PO TID PRN PRN Reason: Cough Buprenorphine/Naloxone (Buprenorphine/Naloxone 8/2 Mg Film) 1 film SUBLINGUAL BID [facility] Last Admin: 11/15/23 08:47 Dose: 1 film Documented By: ANNA Divalproex Sodium (Divalproex Sodium 250 Mg Tablet.Dr) 250 mg PO TID [facility] Last Admin: 11/15/23 14:54 Dose: 250 mg Documented By: ANNA Docusate Sodium (Docusate Sodium 100 Mg Capsule) 100 mg PO DAILY PRN PRN Reason: Constipation Magnesium Oxide (Magnesium Oxide 400 Mg Tablet) 400 mg PO BEDTIME [facility] Last Admin: 11/14/23 19:19 Dose: 400 mg Documented By: MAICO Multivitamins/Vitamin C (Multivitamin Tablet) 1 tab PO DAILY [facility] Last Admin: 11/15/23 08:46 Dose: 1 tab Documented By: ANNA Nicotine Polacrilex (Nicotine Polacrilex 2 Mg Gum) 4 mg BUCCAL Q2H PRN PRN Reason: nicotine addiction Last Admin: 11/15/23 13:14 Dose: 4 mg Documented By: ANNA Olanzapine (Olanzapine 10 Mg Vial) 5 mg IM DAILY PRN PRN Reason: severe agitation Ondansetron HCl (Ondansetron Hcl 4 Mg/2 Ml Vial) 4 mg IVPUSH Q8H PRN PRN Reason: Nausea and Vomiting Ondansetron HCl (Ondansetron Odt 4 Mg Tab.Rapdis) 4 mg TRANSLINGU Q6H PRN PRN Reason: Nausea and Vomiting Risperidone (Risperidone 1 Mg Tablet) 1 mg PO BID [facility] Last Admin: 11/15/23 08:46 Dose: 1 mg Documented By: ANNA Labs 10/04/23 19:39 10/04/23 19:39 Assessment and Plan (1) Alcoholic Korsakoff syndrome: Status: Acute Plan Pt is a 48-year-old female with a PMH significant for opioid use disorder on Suboxone, alcohol use disorder, and Korsakoff's syndrome? who initially presented to the ED on?09/19/2023 looking for her Clement that she had not seen for a few days. Pt apparently had heard he was at this hospital so she called an ambulance to bring her here. Pt will be admitted to the hospital while awaiting guardianship and LTC placement. 1.Alcohol Korsakoff's syndrome -Continue Seroquel, Depakote 2.Opioid use disorder -Continue Suboxone Full Code Pt ambulatory. Requires ongoing hospitalization for guardianship and safe placement, awaiting LTC Quality Stroke Does the patient have a stroke diagnosis?: No VTE Prior VTE?: No VTE Risk Level:: Medical - low VTE Device Contraindication: Treatment Not Indicated VTE Drug Contraindication: Treatment Not Indicated
[2023-11-15] MEDS: Ondansetron ODT 4 MG TAB.RAPDIS TRANSLINGU (17:50)
--- NOTE | 2023-11-15 18:43 | PC.NURSE ---
Assumed care of patient at 0645. Patient remained in behavioral control throughout shift and making requests appropriately. Ambulated in hallway with staff at patient's side without incident. Patient pleasantly interacting with staff. Cooperative with medications and meals. Patient forgetful at times and requests PRNs at greater frequency than available. Easily accepts redirection.
[2023-11-15] MEDS: Magnesium Oxide 400 MG TABLET PO (19:44)
[2023-11-15 19:59] VITALS: BP 108/56; PULSE 72; RESP 18; TEMP 36.4; O2SAT 97
[2023-11-16 07:33] VITALS: BP 123/67; PULSE 70; RESP 14; TEMP 37.2; O2SAT 97
[2023-11-16] MEDS: Buprenorphine/Naloxone 8/2 mg FILM 1 FILM SUBLINGUAL ×2 (09:00→20:14)
[2023-11-16] MEDS: Multivitamin TABLET 1 TAB PO (09:00)
[2023-11-16] MEDS: Divalproex Sodium 250 MG TABLET.DR PO ×3 (09:00→20:14)
[2023-11-16] MEDS: risperiDONE 1 MG TABLET PO ×2 (09:00→20:14)
[2023-11-16] MEDS: Acetaminophen 325 MG TABLET 650 MG PO ×3 (09:00→21:27)
--- NOTE | 2023-11-16 13:12 | P.PNIM_ITS ---
Subjective Subjective Date of Service: 11/16/23 Interval History: seen and examined this morning follow up for placement no overnight events observed ambulating in her room Review of Systems Review of Systems: Yes all other systems are reviewed and are negative Constitutional Constitutional: Denies fever(s) Cardiovascular Cardiovascular: Denies chest pain Physical Exam 2 Vital Signs: Vital Signs: Last Vital Signs Temp 98.9 F 11/16/23 07:33 Pulse 70 11/16/23 07:33 Resp 14 11/16/23 07:33 BP 123/67 11/16/23 07:33 Pulse Ox 97 11/16/23 07:33 O2 Del Method Room Air 11/16/23 07:33 O2 Flow Rate 3 10/05/23 16:00 BMI result Body Mass Index 22.7 Const: General: cooperative, comfortable, no acute distress, alert and awake Nutritional Appearance: average body habitus Resp: Effort & Inspection: normal respiratory effort, able to speak in complete sentences, no respiratory distress and no use of accessory muscles Cardio: Rate: regular rate GI: Inspection: No distended Palpation (GI): Soft to palpation Neuro: Other: ambulating in room, grossly nonfocal, moving all extremities General: moves all extremities Extrem: General: Yes no pedal edema Objective Data Active Medications Acetaminophen (Acetaminophen 325 Mg Tablet) 650 mg PO Q6H PRN PRN Reason: Pain, Mild (Pain Scale 1-3) Last Admin: 11/16/23 09:00 Dose: 650 mg Documented By: JOSEPH Benzocaine (Throat Lozenge, Medicated Lozenge) 1 lozenge MUCOUS MEM Q2H PRN PRN Reason: Sore Throat Benzonatate (Benzonatate 100 Mg Capsule) 100 mg PO TID PRN PRN Reason: Cough Buprenorphine/Naloxone (Buprenorphine/Naloxone 8/2 Mg Film) 1 film SUBLINGUAL BID [facility] Last Admin: 11/16/23 09:00 Dose: 1 film Documented By: JOSEPH Divalproex Sodium (Divalproex Sodium 250 Mg Tablet.Dr) 250 mg PO TID [facility] Last Admin: 11/16/23 09:00 Dose: 250 mg Documented By: JOSEPH Docusate Sodium (Docusate Sodium 100 Mg Capsule) 100 mg PO DAILY PRN PRN Reason: Constipation Magnesium Oxide (Magnesium Oxide 400 Mg Tablet) 400 mg PO BEDTIME [facility] Last Admin: 11/15/23 19:44 Dose: 400 mg Documented By: MAICO Multivitamins/Vitamin C (Multivitamin Tablet) 1 tab PO DAILY [facility] Last Admin: 11/16/23 09:00 Dose: 1 tab Documented By: JOSEPH Nicotine Polacrilex (Nicotine Polacrilex 2 Mg Gum) 4 mg BUCCAL Q2H PRN PRN Reason: nicotine addiction Last Admin: 11/15/23 19:44 Dose: 4 mg Documented By: MAICO Olanzapine (Olanzapine 10 Mg Vial) 5 mg IM DAILY PRN PRN Reason: severe agitation Ondansetron HCl (Ondansetron Hcl 4 Mg/2 Ml Vial) 4 mg IVPUSH Q8H PRN PRN Reason: Nausea and Vomiting Ondansetron HCl (Ondansetron Odt 4 Mg Tab.Rapdis) 4 mg TRANSLINGU Q6H PRN PRN Reason: Nausea and Vomiting Last Admin: 11/15/23 17:50 Dose: 4 mg Documented By: ANNA Risperidone (Risperidone 1 Mg Tablet) 1 mg PO BID [facility] Last Admin: 11/16/23 09:00 Dose: 1 mg Documented By: JOSEPH Labs 10/04/23 19:39 10/04/23 19:39 Assessment and Plan (1) Alcoholic Korsakoff syndrome: Status: Acute Plan Pt is a 48-year-old female with a PMH significant for opioid use disorder on Suboxone, alcohol use disorder, and Korsakoff's syndrome? who initially presented to the ED on?09/19/2023 looking for her Clement that she had not seen for a few days. Pt apparently had heard he was at this hospital so she called an ambulance to bring her here. Pt will be admitted to the hospital while awaiting guardianship and LTC placement. 1.Alcohol Korsakoff's syndrome -Continue Seroquel, Depakote 2.Opioid use disorder -Continue Suboxone declined labs draw 11/15 Full Code DVT ppx Pt ambulatory. Requires ongoing hospitalization for guardianship and safe placement, awaiting LTC Quality Stroke Does the patient have a stroke diagnosis?: No VTE Prior VTE?: No VTE Risk Level:: Medical - low VTE Device Contraindication: Treatment Not Indicated VTE Drug Contraindication: Treatment Not Indicated
--- NOTE | 2023-11-16 13:42 | PC.NURSE ---
No behavioral issues pt cooperative
[2023-11-16] MEDS: Nicotine Polacrilex 2 MG GUM 4 MG BUCCAL ×4 (13:45→20:13)
[2023-11-16 15:15] VITALS: BP 107/52; PULSE 73; RESP 16; TEMP 36.4; O2SAT 97
[2023-11-16 19:41] VITALS: BP 110/58; PULSE 69; RESP 16; TEMP 36.1; O2SAT 98
[2023-11-16] MEDS: Magnesium Oxide 400 MG TABLET PO (20:14)
--- NOTE | 2023-11-17 01:02 | PC.NURSE ---
pt anxious and upset with camera alarms, pt started throwing cups and other things in room out of frustration, pt redirected with good effect.
[2023-11-17] MEDS: Acetaminophen 325 MG TABLET 650 MG PO ×4 (03:55→23:21)
[2023-11-17] MEDS: Nicotine Polacrilex 2 MG GUM 4 MG BUCCAL ×6 (03:57→23:52)
[2023-11-17 07:41] VITALS: BP 107/53; PULSE 76; RESP 16; TEMP 36.2; O2SAT 98
[2023-11-17] MEDS: Buprenorphine/Naloxone 8/2 mg FILM 1 FILM SUBLINGUAL ×2 (08:49→20:01)
[2023-11-17] MEDS: risperiDONE 1 MG TABLET PO ×2 (08:49→20:01)
[2023-11-17] MEDS: Divalproex Sodium 250 MG TABLET.DR PO ×3 (08:49→20:01)
[2023-11-17] MEDS: Multivitamin TABLET 1 TAB PO (08:49)
--- NOTE | 2023-11-17 13:34 | P.PNIM_ITS ---
Subjective Subjective Date of Service: 11/17/23 Interval History: seen and examined this morning follow up for placement no overnight events no specific complaints Review of Systems Review of Systems: Yes all other systems are reviewed and are negative Constitutional Constitutional: Denies chills and Denies fever(s) Cardiovascular Cardiovascular: Denies chest pain, Denies palpitations and Denies dyspnea Respiratory Respiratory: Denies cough and Denies dyspnea Endocrine Endocrine: Denies palpitations Physical Exam 2 Vital Signs: Vital Signs: Last Vital Signs Temp 97.1 F 11/17/23 07:41 Pulse 76 11/17/23 07:41 Resp 16 11/17/23 07:41 BP 107/53 L 11/17/23 07:41 Pulse Ox 98 11/17/23 07:41 O2 Del Method Room Air 11/17/23 07:41 O2 Flow Rate 3 10/05/23 16:00 BMI result Body Mass Index 22.7 Const: General: cooperative, comfortable, no acute distress, alert and awake Nutritional Appearance: average body habitus Resp: Effort & Inspection: normal respiratory effort, able to speak in complete sentences, no respiratory distress and no use of accessory muscles Cardio: Rate: regular rate GI: Inspection: No distended Palpation (GI): Soft to palpation Neuro: Other: ambulating in room, grossly nonfocal, moving all extremities General: moves all extremities Extrem: General: Yes no pedal edema Objective Data Active Medications Acetaminophen (Acetaminophen 325 Mg Tablet) 650 mg PO Q6H PRN PRN Reason: Pain, Mild (Pain Scale 1-3) Last Admin: 11/17/23 12:01 Dose: 650 mg Documented By: KVNG Benzocaine (Throat Lozenge, Medicated Lozenge) 1 lozenge MUCOUS MEM Q2H PRN PRN Reason: Sore Throat Benzonatate (Benzonatate 100 Mg Capsule) 100 mg PO TID PRN PRN Reason: Cough Buprenorphine/Naloxone (Buprenorphine/Naloxone 8/2 Mg Film) 1 film SUBLINGUAL BID [facility] Last Admin: 11/17/23 08:49 Dose: 1 film Documented By: JOSEPH Divalproex Sodium (Divalproex Sodium 250 Mg Tablet.Dr) 250 mg PO TID [facility] Last Admin: 11/17/23 08:49 Dose: 250 mg Documented By: JOSEPH Docusate Sodium (Docusate Sodium 100 Mg Capsule) 100 mg PO DAILY PRN PRN Reason: Constipation Magnesium Oxide (Magnesium Oxide 400 Mg Tablet) 400 mg PO BEDTIME [facility] Last Admin: 11/16/23 20:14 Dose: 400 mg Documented By: MAICO Multivitamins/Vitamin C (Multivitamin Tablet) 1 tab PO DAILY [facility] Last Admin: 11/17/23 08:49 Dose: 1 tab Documented By: JOSEPH Nicotine Polacrilex (Nicotine Polacrilex 2 Mg Gum) 4 mg BUCCAL Q2H PRN PRN Reason: nicotine addiction Last Admin: 11/17/23 12:02 Dose: 4 mg Documented By: KVNG Olanzapine (Olanzapine 10 Mg Vial) 5 mg IM DAILY PRN PRN Reason: severe agitation Ondansetron HCl (Ondansetron Hcl 4 Mg/2 Ml Vial) 4 mg IVPUSH Q8H PRN PRN Reason: Nausea and Vomiting Ondansetron HCl (Ondansetron Odt 4 Mg Tab.Rapdis) 4 mg TRANSLINGU Q6H PRN PRN Reason: Nausea and Vomiting Last Admin: 11/15/23 17:50 Dose: 4 mg Documented By: ANNA Risperidone (Risperidone 1 Mg Tablet) 1 mg PO BID [facility] Last Admin: 11/17/23 08:49 Dose: 1 mg Documented By: JOSEPH Labs 10/04/23 19:39 10/04/23 19:39 Assessment and Plan (1) Alcoholic Korsakoff syndrome: Status: Acute Plan Pt is a 48-year-old female with a PMH significant for opioid use disorder on Suboxone, alcohol use disorder, and Korsakoff's syndrome? who initially presented to the ED on?09/19/2023 looking for her Clement that she had not seen for a few days. Pt apparently had heard he was at this hospital so she called an ambulance to bring her here. Pt will be admitted to the hospital while awaiting guardianship and LTC placement. 1.Alcohol Korsakoff's syndrome -Continue Seroquel, Depakote 2.Opioid use disorder -Continue Suboxone declined labs draw 11/15 Full Code DVT ppx Pt ambulatory. Requires ongoing hospitalization for guardianship and safe placement, awaiting LTC Quality Stroke Does the patient have a stroke diagnosis?: No VTE Prior VTE?: No VTE Risk Level:: Medical - low VTE Device Contraindication: Treatment Not Indicated VTE Drug Contraindication: Treatment Not Indicated
[2023-11-17 14:40] VITALS: BP 121/59; PULSE 74; RESP 16; TEMP 36.4; O2SAT 98
[2023-11-17 19:45] VITALS: BP 133/66; PULSE 77; RESP 18; TEMP 36.7; O2SAT 99
[2023-11-17] MEDS: Magnesium Oxide 400 MG TABLET PO (20:01)
[2023-11-18 03:41] VITALS: BP 100/54; PULSE 63; RESP 16; TEMP 36.4; O2SAT 97
--- NOTE | 2023-11-18 04:52 | PC.NURSE ---
pt cooperative easily redirected took all her scheduled medications and appropriately asked for medication for generalized discomfort
[2023-11-18] MEDS: Acetaminophen 325 MG TABLET 650 MG PO ×3 (06:00→20:04)
[2023-11-18 06:17] LABS: Hematocrit 33.2 % (37.0-47.0); Hemoglobin 11.1 g/dl (12.0-16.0); Mean Corpuscular HGB Conc 33.4 g/dl (31.0-35.0); Mean Corpuscular Hemoglobin 32.7 pg (27.0-33.0); Mean Corpuscular Volume 97.9 fL (80.0-98.0); Mean Platelet Volume 10.2 fL (9.4-12.3); Platelet Count 189 X10*3/uL (160-400); Red Blood Count 3.39 X10*6/uL (4.20-5.50); Red Cell Distribution Width 12.4 % (11.0-16.0); White Blood Count 7.6 X10*3/uL (4.8-10.8)
[2023-11-18 06:31] LABS: Anion Gap 12 (12-20); Blood Urea Nitrogen 8 mg/dL (9-16); Calcium 8.8 mg/dL (8.4-10.2); Carbon Dioxide 28 mmol/L (22-29); Chloride 100 mmol/L (96-108); Creatinine Clr Calc Pharmacy 80.2; Estimated Glomerular Filt Rate > 60; Glucose Random 84 mg/dL (60-115); Potassium 4.2 mmol/L (3.3-5.1); Sodium 136 mmol/L (135-145)
[2023-11-18 08:00] VITALS: BP 115/70; PULSE 76; RESP 18; TEMP 36.6; O2SAT 97
[2023-11-18] MEDS: Divalproex Sodium 250 MG TABLET.DR PO ×3 (09:01→20:05)
[2023-11-18] MEDS: Nicotine Polacrilex 2 MG GUM 4 MG BUCCAL ×5 (09:01→22:53)
[2023-11-18] MEDS: Multivitamin TABLET 1 TAB PO (09:01)
[2023-11-18] MEDS: Buprenorphine/Naloxone 8/2 mg FILM 1 FILM SUBLINGUAL ×2 (09:01→21:09)
[2023-11-18] MEDS: risperiDONE 1 MG TABLET PO ×2 (09:01→20:05)
--- NOTE | 2023-11-18 09:17 | HO.PM.IMPN ---
Subjective Subjective Date of Service: 11/18/23 Interval History: seen and examined this morning follow up for placement no overnight events no specific complaints Review of Systems Review of Systems: Yes all other systems are reviewed and are negative Constitutional Constitutional: Denies chills and Denies fever(s) Cardiovascular Cardiovascular: Denies chest pain, Denies palpitations and Denies dyspnea Respiratory Respiratory: Denies cough and Denies dyspnea Endocrine Endocrine: Denies palpitations Physical Exam Vital Signs: Vital Signs: Last Vital Signs Temp 97.8 F 11/18/23 08:00 Pulse 76 11/18/23 08:00 Resp 18 11/18/23 08:00 BP 115/70 11/18/23 08:00 Pulse Ox 97 11/18/23 08:00 O2 Del Method Room Air 11/18/23 08:00 O2 Flow Rate 3 10/05/23 16:00 BMI result Body Mass Index 22.7 Objective Data Active Medications Acetaminophen (Acetaminophen 325 Mg Tablet) 650 mg PO Q6H PRN PRN Reason: Pain, Mild (Pain Scale 1-3) Last Admin: 11/18/23 06:00 Dose: 650 mg Documented By: JUAN Benzocaine (Throat Lozenge, Medicated Lozenge) 1 lozenge MUCOUS MEM Q2H PRN PRN Reason: Sore Throat Benzonatate (Benzonatate 100 Mg Capsule) 100 mg PO TID PRN PRN Reason: Cough Buprenorphine/Naloxone (Buprenorphine/Naloxone 8/2 Mg Film) 1 film SUBLINGUAL BID [facility] Last Admin: 11/18/23 09:01 Dose: 1 film Documented By: EWA Divalproex Sodium (Divalproex Sodium 250 Mg Tablet.) 250 mg PO TID [facility] Last Admin: 11/18/23 09:01 Dose: 250 mg Documented By: EWA Docusate Sodium (Docusate Sodium 100 Mg Capsule) 100 mg PO DAILY PRN PRN Reason: Constipation Magnesium Oxide (Magnesium Oxide 400 Mg Tablet) 400 mg PO BEDTIME [facility] Last Admin: 11/17/23 20:01 Dose: 400 mg Documented By: LAMIN Multivitamins/Vitamin C (Multivitamin Tablet) 1 tab PO DAILY [facility] Last Admin: 11/18/23 09:01 Dose: 1 tab Documented By: EWA Nicotine Polacrilex (Nicotine Polacrilex 2 Mg Gum) 4 mg BUCCAL Q2H PRN PRN Reason: nicotine addiction Last Admin: 11/18/23 09:01 Dose: 4 mg Documented By: EWA Olanzapine (Olanzapine 10 Mg Vial) 5 mg IM DAILY PRN PRN Reason: severe agitation Ondansetron HCl (Ondansetron Hcl 4 Mg/2 Ml Vial) 4 mg IVPUSH Q8H PRN PRN Reason: Nausea and Vomiting Ondansetron HCl (Ondansetron Odt 4 Mg Tab.Rapdis) 4 mg TRANSLINGU Q6H PRN PRN Reason: Nausea and Vomiting Last Admin: 11/15/23 17:50 Dose: 4 mg Documented By: ANNA Risperidone (Risperidone 1 Mg Tablet) 1 mg PO BID [facility] Last Admin: 11/18/23 09:01 Dose: 1 mg Documented By: EWA Labs 11/18/23 05:46 11/18/23 05:46 Labs: Laboratory Results - last 24 hr 11/18/23 05:46 MCV 97.9 MCH 32.7 MCHC 33.4 RDW 12.4 Plt Count 189 D MPV 10.2 Absolute Nucleated RBC 0.000 Nucleated RBC % (auto) 0.0 Anion Gap 12 Estim Creat Clear Calc 80.2 Estimated GFR > 60 Random Glucose 84 Calcium 8.8 D Assessment and Plan (1) Alcoholic Korsakoff syndrome: Status: Acute Plan Pt is a 48-year-old female with a PMH significant for opioid use disorder on Suboxone, alcohol use disorder, and Korsakoff's syndrome? who initially presented to the ED on?09/19/2023 looking for her Clement that she had not seen for a few days. Pt apparently had heard he was at this hospital so she called an ambulance to bring her here. Pt will be admitted to the hospital while awaiting guardianship and LTC placement. Alcohol Korsakoff's syndrome Continue Seroquel, Depakote Opioid use disorder Continue Suboxone Full Code Attending Dr. Hall DVT ppx Pt ambulatory. Requires ongoing hospitalization for guardianship and safe placement, awaiting LTC Quality Stroke Does the patient have a stroke diagnosis?: No VTE Prior VTE?: No VTE Risk Level:: Medical - low VTE Device Contraindication: Treatment Not Indicated VTE Drug Contraindication: Treatment Not Indicated
--- NOTE | 2023-11-18 14:10 | MHC.CM.PN ---
EMR REVIEWED, PT CLINICALLY ACCEPTED AT [facility] HOWEVER NO FEMALE BEDS AT THIS TIME, NO OTHER BED OFFERS AT THIS TIME, CM WILL CONT TO FOLLOW DC NEEDS.
[2023-11-18 15:39] VITALS: BP 104/54; PULSE 70; RESP 18; TEMP 36.8; O2SAT 97
[2023-11-18 19:45] VITALS: BP 124/57; PULSE 80; RESP 20; TEMP 36.2; O2SAT 96
[2023-11-18] MEDS: Magnesium Oxide 400 MG TABLET PO (20:05)
[2023-11-19] MEDS: Magnesium Hydrox/Alum Hydrox 30 ML ORAL.SUSP PO ×2 (00:55→19:16)
[2023-11-19] MEDS: Acetaminophen 325 MG TABLET 650 MG PO ×4 (03:15→21:03)
[2023-11-19] MEDS: Nicotine Polacrilex 2 MG GUM 4 MG BUCCAL ×5 (03:17→21:24)
[2023-11-19 03:25] VITALS: BP 135/67; PULSE 81; RESP 20; TEMP 36.6; O2SAT 98
[2023-11-19 08:00] VITALS: BP 113/65; PULSE 57; RESP 16; TEMP 36.5; O2SAT 98
[2023-11-19] MEDS: Buprenorphine/Naloxone 8/2 mg FILM 1 FILM SUBLINGUAL ×2 (09:13→21:02)
[2023-11-19] MEDS: risperiDONE 1 MG TABLET PO ×2 (09:13→21:02)
[2023-11-19] MEDS: Multivitamin TABLET 1 TAB PO (09:13)
[2023-11-19] MEDS: Divalproex Sodium 250 MG TABLET.DR PO ×3 (09:13→21:02)
--- NOTE | 2023-11-19 09:18 | HO.PM.IMPN ---
Subjective Subjective Date of Service: 11/19/23 Interval History: seen and examined this morning follow up for placement no overnight events no specific complaints Review of Systems Review of Systems: Yes all other systems are reviewed and are negative Constitutional Constitutional: Denies chills and Denies fever(s) Cardiovascular Cardiovascular: Denies chest pain, Denies palpitations and Denies dyspnea Respiratory Respiratory: Denies cough and Denies dyspnea Endocrine Endocrine: Denies palpitations Physical Exam Vital Signs: Vital Signs: Last Vital Signs Temp 97.7 F 11/19/23 08:00 Pulse 57 11/19/23 08:00 Resp 16 11/19/23 08:00 BP 113/65 11/19/23 08:00 Pulse Ox 98 11/19/23 08:00 O2 Del Method Room Air 11/19/23 08:00 O2 Flow Rate 3 10/05/23 16:00 BMI result Body Mass Index 22.7 alert and oriented to self Objective Data Active Medications Acetaminophen (Acetaminophen 325 Mg Tablet) 650 mg PO Q6H PRN PRN Reason: Pain, Mild (Pain Scale 1-3) Last Admin: 11/19/23 09:12 Dose: 650 mg Documented By: EWA Al Hydroxide/Mg Hydroxide (Magnesium Hydrox/Alum Hydrox 30 Ml Oral.Susp) 30 ml PO Q6H PRN PRN Reason: GI Upset Last Admin: 11/19/23 00:55 Dose: 30 ml Documented By: JUAN Benzocaine (Throat Lozenge, Medicated Lozenge) 1 lozenge MUCOUS MEM Q2H PRN PRN Reason: Sore Throat Benzonatate (Benzonatate 100 Mg Capsule) 100 mg PO TID PRN PRN Reason: Cough Buprenorphine/Naloxone (Buprenorphine/Naloxone 8/2 Mg Film) 1 film SUBLINGUAL BID [facility] Last Admin: 11/19/23 09:13 Dose: 1 film Documented By: EWA Divalproex Sodium (Divalproex Sodium 250 Mg Tablet.) 250 mg PO TID [facility] Last Admin: 11/19/23 09:13 Dose: 250 mg Documented By: EWA Docusate Sodium (Docusate Sodium 100 Mg Capsule) 100 mg PO DAILY PRN PRN Reason: Constipation Magnesium Oxide (Magnesium Oxide 400 Mg Tablet) 400 mg PO BEDTIME [facility] Last Admin: 11/18/23 20:05 Dose: 400 mg Documented By: JUAN Multivitamins/Vitamin C (Multivitamin Tablet) 1 tab PO DAILY [facility] Last Admin: 11/19/23 09:13 Dose: 1 tab Documented By: EWA Nicotine Polacrilex (Nicotine Polacrilex 2 Mg Gum) 4 mg BUCCAL Q2H PRN PRN Reason: nicotine addiction Last Admin: 11/19/23 09:13 Dose: 4 mg Documented By: EWA Olanzapine (Olanzapine 10 Mg Vial) 5 mg IM DAILY PRN PRN Reason: severe agitation Ondansetron HCl (Ondansetron Hcl 4 Mg/2 Ml Vial) 4 mg IVPUSH Q8H PRN PRN Reason: Nausea and Vomiting Ondansetron HCl (Ondansetron Odt 4 Mg Tab.Rapdis) 4 mg TRANSLINGU Q6H PRN PRN Reason: Nausea and Vomiting Last Admin: 11/15/23 17:50 Dose: 4 mg Documented By: ANNA Risperidone (Risperidone 1 Mg Tablet) 1 mg PO BID [facility] Last Admin: 11/19/23 09:13 Dose: 1 mg Documented By: EWA Labs 11/18/23 05:46 11/18/23 05:46 Assessment and Plan (1) Alcoholic Korsakoff syndrome: Status: Acute Plan Pt is a 48-year-old female with a PMH significant for opioid use disorder on Suboxone, alcohol use disorder, and Korsakoff's syndrome? who initially presented to the ED on?09/19/2023 looking for her Clement that she had not seen for a few days. Pt apparently had heard he was at this hospital so she called an ambulance to bring her here. Pt will be admitted to the hospital while awaiting guardianship and LTC placement. Alcohol Korsakoff's syndrome Continue Seroquel, Depakote Opioid use disorder Continue Suboxone Full Code Attending Dr. Hall DVT ppx Pt ambulatory. Requires ongoing hospitalization for guardianship and safe placement, awaiting LTC Quality Stroke Does the patient have a stroke diagnosis?: No VTE Prior VTE?: No VTE Risk Level:: Medical - low VTE Device Contraindication: Treatment Not Indicated VTE Drug Contraindication: Treatment Not Indicated
[2023-11-19 15:04] VITALS: BP 146/64; PULSE 65; RESP 20; TEMP 36.3; O2SAT 98
[2023-11-19 19:25] VITALS: BP 100/59; PULSE 68; RESP 20; TEMP 36.6; O2SAT 97
[2023-11-19] MEDS: Magnesium Oxide 400 MG TABLET PO (21:02)
[2023-11-20 03:54] VITALS: BP 104/56; PULSE 60; RESP 16; TEMP 36.2; O2SAT 96
[2023-11-20] MEDS: Acetaminophen 325 MG TABLET 650 MG PO ×3 (04:34→18:07)
[2023-11-20] MEDS: Nicotine Polacrilex 2 MG GUM 4 MG BUCCAL ×8 (04:39→22:34)
[2023-11-20 07:33] VITALS: BP 122/73; PULSE 61; RESP 17; TEMP 36.3; O2SAT 98
--- NOTE | 2023-11-20 07:37 | P.PNIM_ITS ---
Subjective Subjective Date of Service: 11/20/23 Interval History: seen and examined this morning follow up for placement no overnight events no specific complaints Review of Systems Review of Systems: Yes all other systems are reviewed and are negative Constitutional Constitutional: Denies chills and Denies fever(s) Cardiovascular Cardiovascular: Denies chest pain, Denies palpitations and Denies dyspnea Respiratory Respiratory: Denies cough and Denies dyspnea Endocrine Endocrine: Denies palpitations Physical Exam 2 Vital Signs: Vital Signs: Last Vital Signs Temp 97.4 F 11/20/23 07:33 Pulse 61 11/20/23 07:33 Resp 17 11/20/23 07:33 BP 122/73 11/20/23 07:33 Pulse Ox 98 11/20/23 07:33 O2 Del Method Room Air 11/20/23 07:33 O2 Flow Rate 3 10/05/23 16:00 BMI result Body Mass Index 22.7 Appearing in no acute distress heart regular rate rhythm abdomen is soft neuro patient is alert Objective Data Active Medications Acetaminophen (Acetaminophen 325 Mg Tablet) 650 mg PO Q6H PRN PRN Reason: Pain, Mild (Pain Scale 1-3) Last Admin: 11/20/23 04:34 Dose: 650 mg Documented By: LAMIN Al Hydroxide/Mg Hydroxide (Magnesium Hydrox/Alum Hydrox 30 Ml Oral.Susp) 30 ml PO Q6H PRN PRN Reason: GI Upset Last Admin: 11/19/23 19:16 Dose: 30 ml Documented By: LAMIN Benzocaine (Throat Lozenge, Medicated Lozenge) 1 lozenge MUCOUS MEM Q2H PRN PRN Reason: Sore Throat Benzonatate (Benzonatate 100 Mg Capsule) 100 mg PO TID PRN PRN Reason: Cough Buprenorphine/Naloxone (Buprenorphine/Naloxone 8/2 Mg Film) 1 film SUBLINGUAL BID [facility] Last Admin: 11/19/23 21:02 Dose: 1 film Documented By: LAMIN Divalproex Sodium (Divalproex Sodium 250 Mg Tablet.Dr) 250 mg PO TID [facility] Last Admin: 11/19/23 21:02 Dose: 250 mg Documented By: LAMIN Docusate Sodium (Docusate Sodium 100 Mg Capsule) 100 mg PO DAILY PRN PRN Reason: Constipation Magnesium Oxide (Magnesium Oxide 400 Mg Tablet) 400 mg PO BEDTIME [facility] Last Admin: 11/19/23 21:02 Dose: 400 mg Documented By: LAMIN Multivitamins/Vitamin C (Multivitamin Tablet) 1 tab PO DAILY [facility] Last Admin: 11/19/23 09:13 Dose: 1 tab Documented By: EWA Nicotine Polacrilex (Nicotine Polacrilex 2 Mg Gum) 4 mg BUCCAL Q2H PRN PRN Reason: nicotine addiction Last Admin: 11/20/23 04:39 Dose: 4 mg Documented By: LAMIN Olanzapine (Olanzapine 10 Mg Vial) 5 mg IM DAILY PRN PRN Reason: severe agitation Ondansetron HCl (Ondansetron Hcl 4 Mg/2 Ml Vial) 4 mg IVPUSH Q8H PRN PRN Reason: Nausea and Vomiting Ondansetron HCl (Ondansetron Odt 4 Mg Tab.Rapdis) 4 mg TRANSLINGU Q6H PRN PRN Reason: Nausea and Vomiting Last Admin: 11/15/23 17:50 Dose: 4 mg Documented By: ANNA Risperidone (Risperidone 1 Mg Tablet) 1 mg PO BID [facility] Last Admin: 11/19/23 21:02 Dose: 1 mg Documented By: LAMIN Labs 11/18/23 05:46 11/18/23 05:46 Assessment and Plan (1) Alcoholic Korsakoff syndrome: Status: Acute Plan Pt is a 48-year-old female with a PMH significant for opioid use disorder on Suboxone, alcohol use disorder, and Korsakoff's syndrome? who initially presented to the ED on?09/19/2023 looking for her Clement that she had not seen for a few days. Pt apparently had heard he was at this hospital so she called an ambulance to bring her here. Pt will be admitted to the hospital while awaiting guardianship and LTC placement. Alcohol Korsakoff's syndrome Continue Seroquel, Depakote labs 11/17 wnl Opioid use disorder Continue Suboxone Full Code Attending Dr. Hall DVT ppx Pt ambulatory. Requires ongoing hospitalization for guardianship and safe placement, awaiting LTC Quality Stroke Does the patient have a stroke diagnosis?: No VTE Prior VTE?: No VTE Risk Level:: Medical - low VTE Device Contraindication: Treatment Not Indicated VTE Drug Contraindication: Treatment Not Indicated
[2023-11-20] MEDS: Multivitamin TABLET 1 TAB PO (08:40)
[2023-11-20] MEDS: risperiDONE 1 MG TABLET PO ×2 (08:40→20:11)
[2023-11-20] MEDS: Buprenorphine/Naloxone 8/2 mg FILM 1 FILM SUBLINGUAL ×2 (08:41→20:11)
[2023-11-20] MEDS: Divalproex Sodium 250 MG TABLET.DR PO ×3 (08:41→20:11)
--- NOTE | 2023-11-20 14:55 | MHC.CM.PN ---
pt accepted at [facility] when female bed is avaliable
[2023-11-20 15:13] VITALS: BP 111/57; PULSE 74; RESP 18; TEMP 36; O2SAT 97
[2023-11-20 19:14] VITALS: BP 106/62; PULSE 82; RESP 18; TEMP 36.1; O2SAT 96
[2023-11-20] MEDS: Magnesium Oxide 400 MG TABLET PO (20:11)
[2023-11-21] MEDS: Nicotine Polacrilex 2 MG GUM 4 MG BUCCAL ×8 (00:29→21:08)
[2023-11-21] MEDS: Acetaminophen 325 MG TABLET 650 MG PO ×3 (00:30→19:02)
[2023-11-21 04:00] VITALS: BP 123/59; PULSE 74; RESP 16; TEMP 36.1; O2SAT 97
[2023-11-21 07:46] VITALS: BP 97/54; PULSE 70; RESP 17; TEMP 36; O2SAT 96
[2023-11-21] MEDS: Multivitamin TABLET 1 TAB PO (09:06)
[2023-11-21] MEDS: risperiDONE 1 MG TABLET PO ×2 (09:06→21:03)
[2023-11-21] MEDS: Divalproex Sodium 250 MG TABLET.DR PO ×3 (09:06→21:03)
[2023-11-21] MEDS: Buprenorphine/Naloxone 8/2 mg FILM 1 FILM SUBLINGUAL ×2 (09:07→21:03)
[2023-11-21 15:04] VITALS: BP 125/62; PULSE 81; RESP 18; TEMP 36.4; O2SAT 96
--- NOTE | 2023-11-21 16:14 | P.PNIM_ITS ---
Subjective Subjective Date of Service: 11/21/23 Interval History: seen and examined this morning follow up for placement no overnight events no specific complaints this am Review of Systems Review of Systems: Yes all other systems are reviewed and are negative Constitutional Constitutional: Denies fever(s) Cardiovascular Cardiovascular: Denies chest pain Gastrointestinal Gastrointestinal: Denies abdominal pain Physical Exam 2 Vital Signs: Vital Signs: Last Vital Signs Temp 97.6 F 11/21/23 15:04 Pulse 81 11/21/23 15:04 Resp 18 11/21/23 15:04 BP 125/62 11/21/23 15:04 Pulse Ox 96 11/21/23 15:04 O2 Del Method Room Air 11/21/23 15:04 O2 Flow Rate 3 10/05/23 16:00 BMI result Body Mass Index 22.7 Const: General: cooperative, comfortable, no acute distress, alert and awake Nutritional Appearance: average body habitus Resp: Effort & Inspection: normal respiratory effort, able to speak in complete sentences, no respiratory distress and no use of accessory muscles Cardio: Rate: regular rate GI: Inspection: No distended Neuro: Other: ambulating in room, grossly nonfocal, moving all extremities General: moves all extremities Extrem: General: Yes no pedal edema Objective Data Active Medications Acetaminophen (Acetaminophen 325 Mg Tablet) 650 mg PO Q6H PRN PRN Reason: Pain, Mild (Pain Scale 1-3) Last Admin: 11/21/23 09:07 Dose: 650 mg Documented By: JOSEPH Al Hydroxide/Mg Hydroxide (Magnesium Hydrox/Alum Hydrox 30 Ml Oral.Susp) 30 ml PO Q6H PRN PRN Reason: GI Upset Last Admin: 11/19/23 19:16 Dose: 30 ml Documented By: LAMIN Benzocaine (Throat Lozenge, Medicated Lozenge) 1 lozenge MUCOUS MEM Q2H PRN PRN Reason: Sore Throat Benzonatate (Benzonatate 100 Mg Capsule) 100 mg PO TID PRN PRN Reason: Cough Buprenorphine/Naloxone (Buprenorphine/Naloxone 8/2 Mg Film) 1 film SUBLINGUAL BID [facility] Last Admin: 11/21/23 09:07 Dose: 1 film Documented By: JOSEPH Divalproex Sodium (Divalproex Sodium 250 Mg Tablet.) 250 mg PO TID [facility] Last Admin: 11/21/23 14:35 Dose: 250 mg Documented By: CHAS Docusate Sodium (Docusate Sodium 100 Mg Capsule) 100 mg PO DAILY PRN PRN Reason: Constipation Magnesium Oxide (Magnesium Oxide 400 Mg Tablet) 400 mg PO BEDTIME [facility] Last Admin: 11/20/23 20:11 Dose: 400 mg Documented By: MICHAEL Multivitamins/Vitamin C (Multivitamin Tablet) 1 tab PO DAILY [facility] Last Admin: 11/21/23 09:06 Dose: 1 tab Documented By: JOSEPH Nicotine Polacrilex (Nicotine Polacrilex 2 Mg Gum) 4 mg BUCCAL Q2H PRN PRN Reason: nicotine addiction Last Admin: 11/21/23 14:37 Dose: 4 mg Documented By: CHAS Olanzapine (Olanzapine 10 Mg Vial) 5 mg IM DAILY PRN PRN Reason: severe agitation Ondansetron HCl (Ondansetron Hcl 4 Mg/2 Ml Vial) 4 mg IVPUSH Q8H PRN PRN Reason: Nausea and Vomiting Ondansetron HCl (Ondansetron Odt 4 Mg Tab.Rapdis) 4 mg TRANSLINGU Q6H PRN PRN Reason: Nausea and Vomiting Last Admin: 11/15/23 17:50 Dose: 4 mg Documented By: ANNA Risperidone (Risperidone 1 Mg Tablet) 1 mg PO BID [facility] Last Admin: 11/21/23 09:06 Dose: 1 mg Documented By: JOSEPH Labs 11/18/23 05:46 11/18/23 05:46 Assessment and Plan (1) Alcoholic Korsakoff syndrome: Status: Acute Plan Pt is a 48-year-old female with a PMH significant for opioid use disorder on Suboxone, alcohol use disorder, and Korsakoff's syndrome? who initially presented to the ED on?09/19/2023 looking for her Clement that she had not seen for a few days. Pt apparently had heard he was at this hospital so she called an ambulance to bring her here. deemed not to have capacity and was admitted to await guardianship and LTC placement. Alcohol Korsakoff's syndrome Continue Depakote. seroquel changed to risperidone 11/08, may increase from 1 mg to 2 mg bid if needed Zyprexa 5 mg IM + Ativan 1 mg IM for breakthrough agitation labs 11/17 wnl Opioid use disorder Continue Suboxone Full Code Attending Dr. Hall DVT ppx Pt ambulatory. Requires ongoing hospitalization for guardianship and safe placement, awaiting LTC Quality Stroke Does the patient have a stroke diagnosis?: No VTE Prior VTE?: No VTE Risk Level:: Medical - low VTE Device Contraindication: Treatment Not Indicated VTE Drug Contraindication: Treatment Not Indicated
[2023-11-21 19:34] VITALS: BP 113/79; PULSE 83; RESP 17; TEMP 36.4; O2SAT 96
[2023-11-21] MEDS: Magnesium Oxide 400 MG TABLET PO (21:03)
[2023-11-22 03:05] VITALS: BP 105/56; PULSE 74; RESP 18; TEMP 36.6; O2SAT 96
[2023-11-22] MEDS: Acetaminophen 325 MG TABLET 650 MG PO ×4 (03:14→21:09)
[2023-11-22] MEDS: Nicotine Polacrilex 2 MG GUM 4 MG BUCCAL ×6 (03:14→21:34)
[2023-11-22 08:00] VITALS: BP 111/56; PULSE 72; RESP 16; TEMP 36.1; O2SAT 96
[2023-11-22] MEDS: Multivitamin TABLET 1 TAB PO (09:12)
[2023-11-22] MEDS: Divalproex Sodium 250 MG TABLET.DR PO ×3 (09:12→21:08)
[2023-11-22] MEDS: risperiDONE 1 MG TABLET PO ×2 (09:12→21:08)
[2023-11-22] MEDS: Buprenorphine/Naloxone 8/2 mg FILM 1 FILM SUBLINGUAL ×2 (09:12→21:09)
--- NOTE | 2023-11-22 13:13 | MHC.CM.PN ---
EMR REVIEWED. PT REMAINS MEDICALLY CLEARED. PT AWAITING PLACEMENT AT [facility] ONCE A FEMALE BED BECOMES AVAILABLE. CM WILL CONTINUE TO FOLLOW FOR ANY CHANGE IN DC PLAN/NEEDS.
--- NOTE | 2023-11-22 15:09 | HO.PM.IMPN ---
Subjective Subjective Date of Service: 11/22/23 Interval History: seen and examined this morning follow up for placement no overnight events no specific events Review of Systems Review of Systems: Yes all other systems are reviewed and are negative Constitutional Constitutional: Denies chills and Denies fever(s) Cardiovascular Cardiovascular: Denies chest pain, Denies palpitations and Denies dyspnea Respiratory Respiratory: Denies cough and Denies dyspnea Endocrine Endocrine: Denies palpitations Physical Exam Vital Signs: Vital Signs: Last Vital Signs Temp 96.9 F 11/22/23 08:00 Pulse 72 11/22/23 08:00 Resp 16 11/22/23 08:00 BP 111/56 L 11/22/23 08:00 Pulse Ox 96 11/22/23 08:00 O2 Del Method Room Air 11/22/23 08:00 O2 Flow Rate 3 10/05/23 16:00 BMI result Body Mass Index 22.7 Const: General: cooperative, comfortable, no acute distress, alert and awake Nutritional Appearance: average body habitus Resp: Effort & Inspection: normal respiratory effort, able to speak in complete sentences, no respiratory distress and no use of accessory muscles Cardio: Rate: regular rate GI: Inspection: No distended Palpation (GI): Soft to palpation Neuro: Other: ambulating in room, grossly nonfocal, moving all extremities General: moves all extremities Extrem: General: Yes no pedal edema Objective Data Active Medications Acetaminophen (Acetaminophen 325 Mg Tablet) 650 mg PO Q6H PRN PRN Reason: Pain, Mild (Pain Scale 1-3) Last Admin: 11/22/23 09:12 Dose: 650 mg Documented By: CHRISTOFER Al Hydroxide/Mg Hydroxide (Magnesium Hydrox/Alum Hydrox 30 Ml Oral.Susp) 30 ml PO Q6H PRN PRN Reason: GI Upset Last Admin: 11/19/23 19:16 Dose: 30 ml Documented By: ODRISM Benzocaine (Throat Lozenge, Medicated Lozenge) 1 lozenge MUCOUS MEM Q2H PRN PRN Reason: Sore Throat Benzonatate (Benzonatate 100 Mg Capsule) 100 mg PO TID PRN PRN Reason: Cough Buprenorphine/Naloxone (Buprenorphine/Naloxone 8/2 Mg Film) 1 film SUBLINGUAL BID [facility] Last Admin: 11/22/23 09:12 Dose: 1 film Documented By: CHRISTOFER Divalproex Sodium (Divalproex Sodium 250 Mg Tablet.) 250 mg PO TID [facility] Last Admin: 11/22/23 13:18 Dose: 250 mg Documented By: CHAS Docusate Sodium (Docusate Sodium 100 Mg Capsule) 100 mg PO DAILY PRN PRN Reason: Constipation Magnesium Oxide (Magnesium Oxide 400 Mg Tablet) 400 mg PO BEDTIME [facility] Last Admin: 11/21/23 21:03 Dose: 400 mg Documented By: REE Multivitamins/Vitamin C (Multivitamin Tablet) 1 tab PO DAILY [facility] Last Admin: 11/22/23 09:12 Dose: 1 tab Documented By: CHRISTOFER Nicotine Polacrilex (Nicotine Polacrilex 2 Mg Gum) 4 mg BUCCAL Q2H PRN PRN Reason: nicotine addiction Last Admin: 11/22/23 13:18 Dose: 4 mg Documented By: CHAS Olanzapine (Olanzapine 10 Mg Vial) 5 mg IM DAILY PRN PRN Reason: severe agitation Ondansetron HCl (Ondansetron Hcl 4 Mg/2 Ml Vial) 4 mg IVPUSH Q8H PRN PRN Reason: Nausea and Vomiting Ondansetron HCl (Ondansetron Odt 4 Mg Tab.Rapdis) 4 mg TRANSLINGU Q6H PRN PRN Reason: Nausea and Vomiting Last Admin: 11/15/23 17:50 Dose: 4 mg Documented By: ANNA Risperidone (Risperidone 1 Mg Tablet) 1 mg PO BID [facility] Last Admin: 11/22/23 09:12 Dose: 1 mg Documented By: CHRISTOFER Labs 11/18/23 05:46 11/18/23 05:46 Assessment and Plan (1) Alcoholic Korsakoff syndrome: Status: Acute Plan Pt is a 48-year-old female with a PMH significant for opioid use disorder on Suboxone, alcohol use disorder, and Korsakoff's syndrome? who initially presented to the ED on?09/19/2023 looking for her Clement that she had not seen for a few days. Pt apparently had heard he was at this hospital so she called an ambulance to bring her here. deemed not to have capacity and was admitted to await guardianship and LTC placement. Alcohol Korsakoff's syndrome Continue Depakote. seroquel changed to risperidone 11/08, may increase from 1 mg to 2 mg bid if needed Zyprexa 5 mg IM + Ativan 1 mg IM for breakthrough agitation labs 11/17 wnl Opioid use disorder Continue Suboxone Full Code Attending Dr. Hall DVT ppx Pt ambulatory. Requires ongoing hospitalization for guardianship and safe placement, awaiting LTC Quality Stroke Does the patient have a stroke diagnosis?: No VTE Prior VTE?: No VTE Risk Level:: Medical - low VTE Device Contraindication: Treatment Not Indicated VTE Drug Contraindication: Treatment Not Indicated
[2023-11-22 15:27] VITALS: BP 118/60; PULSE 71; RESP 16; TEMP 36.4; O2SAT 96
[2023-11-22 19:44] VITALS: BP 115/54; PULSE 80; RESP 18; TEMP 36.6; O2SAT 98
[2023-11-22] MEDS: Magnesium Oxide 400 MG TABLET PO (21:08)
[2023-11-23] MEDS: Nicotine Polacrilex 2 MG GUM 4 MG BUCCAL ×6 (01:31→17:46)
[2023-11-23] MEDS: Acetaminophen 325 MG TABLET 650 MG PO ×3 (03:28→17:46)
[2023-11-23 03:40] VITALS: BP 103/60; PULSE 65; RESP 16; TEMP 36.4; O2SAT 95
[2023-11-23 07:34] VITALS: BP 109/58; PULSE 64; RESP 18; TEMP 36.1; O2SAT 96
[2023-11-23] MEDS: Divalproex Sodium 250 MG TABLET.DR PO ×3 (08:30→21:01)
[2023-11-23] MEDS: risperiDONE 1 MG TABLET PO ×2 (08:30→21:01)
[2023-11-23] MEDS: Multivitamin TABLET 1 TAB PO (08:30)
[2023-11-23] MEDS: Buprenorphine/Naloxone 8/2 mg FILM 1 FILM SUBLINGUAL ×2 (08:32→21:01)
--- NOTE | 2023-11-23 11:19 | P.PNIM_ITS ---
Subjective Subjective Date of Service: 11/23/23 Interval History: seen and examined this morning follow up for placement no overnight events no specific events Review of Systems Review of Systems: Yes all other systems are reviewed and are negative Constitutional Constitutional: Denies chills and Denies fever(s) Cardiovascular Cardiovascular: Denies chest pain, Denies palpitations and Denies dyspnea Respiratory Respiratory: Denies cough and Denies dyspnea Endocrine Endocrine: Denies palpitations Physical Exam 2 Vital Signs: Vital Signs: Last Vital Signs Temp 96.9 F 11/23/23 07:34 Pulse 64 11/23/23 07:34 Resp 18 11/23/23 07:34 BP 109/58 L 11/23/23 07:34 Pulse Ox 96 11/23/23 07:34 O2 Del Method Room Air 11/23/23 07:34 O2 Flow Rate 3 10/05/23 16:00 BMI result Body Mass Index 22.7 Alert abd soft LSCTA Objective Data Active Medications Acetaminophen (Acetaminophen 325 Mg Tablet) 650 mg PO Q6H PRN PRN Reason: Pain, Mild (Pain Scale 1-3) Last Admin: 11/23/23 10:42 Dose: 650 mg Documented By: SILVESTRE Al Hydroxide/Mg Hydroxide (Magnesium Hydrox/Alum Hydrox 30 Ml Oral.Susp) 30 ml PO Q6H PRN PRN Reason: GI Upset Last Admin: 11/19/23 19:16 Dose: 30 ml Documented By: ODRISM Benzocaine (Throat Lozenge, Medicated Lozenge) 1 lozenge MUCOUS MEM Q2H PRN PRN Reason: Sore Throat Benzonatate (Benzonatate 100 Mg Capsule) 100 mg PO TID PRN PRN Reason: Cough Buprenorphine/Naloxone (Buprenorphine/Naloxone 8/2 Mg Film) 1 film SUBLINGUAL BID [facility] Last Admin: 11/23/23 08:32 Dose: 1 film Documented By: SILVESTRE Divalproex Sodium (Divalproex Sodium 250 Mg Tablet.) 250 mg PO TID [facility] Last Admin: 11/23/23 08:30 Dose: 250 mg Documented By: SILVESTRE Docusate Sodium (Docusate Sodium 100 Mg Capsule) 100 mg PO DAILY PRN PRN Reason: Constipation Magnesium Oxide (Magnesium Oxide 400 Mg Tablet) 400 mg PO BEDTIME [facility] [place] Last Admin: 11/22/23 21:08 Dose: 400 mg Documented By: JUAN Multivitamins/Vitamin C (Multivitamin Tablet) 1 tab PO DAILY [facility] [place] Last Admin: 11/23/23 08:30 Dose: 1 tab Documented By: SILVESTRE Nicotine Polacrilex (Nicotine Polacrilex 2 Mg Gum) 4 mg BUCCAL Q2H PRN PRN Reason: nicotine addiction Last Admin: 11/23/23 10:42 Dose: 4 mg Documented By: SILVESTRE Olanzapine (Olanzapine 10 Mg Vial) 5 mg IM DAILY PRN PRN Reason: severe agitation Ondansetron HCl (Ondansetron Hcl 4 Mg/2 Ml Vial) 4 mg IVPUSH Q8H PRN PRN Reason: Nausea and Vomiting Ondansetron HCl (Ondansetron Odt 4 Mg Tab.Rapdis) 4 mg TRANSLINGU Q6H PRN PRN Reason: Nausea and Vomiting Last Admin: 11/15/23 17:50 Dose: 4 mg Documented By: ANNA Risperidone (Risperidone 1 Mg Tablet) 1 mg PO BID [facility] [place] Last Admin: 11/23/23 08:30 Dose: 1 mg Documented By: SILVESTRE Labs 11/18/23 05:46 11/18/23 05:46 Assessment and Plan (1) Alcoholic Korsakoff syndrome: Status: Acute Plan Pt is a 48-year-old female with a PMH significant for opioid use disorder on Suboxone, alcohol use disorder, and Korsakoff's syndrome? who initially presented to the ED on?09/19/2023 looking for her Clement that she had not seen for a few days. Pt apparently had heard he was at this hospital so she called an ambulance to bring her here. deemed not to have capacity and was admitted to await guardianship and LTC placement. Alcohol Korsakoff's syndrome Continue Depakote. seroquel changed to risperidone 11/08, may increase from 1 mg to 2 mg bid if needed Zyprexa 5 mg IM + Ativan 1 mg IM for breakthrough agitation labs 11/17 wnl Opioid use disorder Continue Suboxone Full Code Attending Dr. Curran DVT ppx Pt ambulatory. Requires ongoing hospitalization for guardianship and safe placement, awaiting LTC Quality Stroke Does the patient have a stroke diagnosis?: No VTE Prior VTE?: No VTE Risk Level:: Medical - low VTE Device Contraindication: Treatment Not Indicated VTE Drug Contraindication: Treatment Not Indicated
--- NOTE | 2023-11-23 11:35 | PC.NURSE ---
Pt calm and cooperative with care.
[2023-11-23 15:06] VITALS: BP 119/57; PULSE 68; RESP 16; TEMP 36.3; O2SAT 99
[2023-11-23 20:00] VITALS: BP 119/59; PULSE 66; RESP 20; TEMP 36.3; O2SAT 95
[2023-11-23] MEDS: Magnesium Oxide 400 MG TABLET PO (21:01)
[2023-11-24] MEDS: Acetaminophen 325 MG TABLET 650 MG PO ×4 (00:33→18:51)
[2023-11-24] MEDS: Nicotine Polacrilex 2 MG GUM 4 MG BUCCAL ×8 (00:33→22:31)
[2023-11-24 03:41] VITALS: BP 105/56; PULSE 61; RESP 16; TEMP 36.4; O2SAT 97
[2023-11-24 07:28] VITALS: BP 112/64; PULSE 68; RESP 16; TEMP 36.2; O2SAT 97
[2023-11-24] MEDS: Divalproex Sodium 250 MG TABLET.DR PO ×3 (08:32→18:52)
[2023-11-24] MEDS: Multivitamin TABLET 1 TAB PO (08:32)
[2023-11-24] MEDS: Buprenorphine/Naloxone 8/2 mg FILM 1 FILM SUBLINGUAL ×2 (08:32→18:52)
[2023-11-24] MEDS: risperiDONE 1 MG TABLET PO ×2 (08:32→18:52)
--- NOTE | 2023-11-24 08:57 | HO.PM.IMPN ---
Subjective Subjective Date of Service: 11/24/23 Interval History: seen and examined this morning follow up for placement no overnight events no specific events Review of Systems Review of Systems: Yes all other systems are reviewed and are negative Constitutional Constitutional: Denies chills and Denies fever(s) Cardiovascular Cardiovascular: Denies chest pain, Denies palpitations and Denies dyspnea Respiratory Respiratory: Denies cough and Denies dyspnea Endocrine Endocrine: Denies palpitations Physical Exam Vital Signs: Vital Signs: Last Vital Signs Temp 97.2 F 11/24/23 07:28 Pulse 68 11/24/23 07:28 Resp 16 11/24/23 07:28 BP 112/64 11/24/23 07:28 Pulse Ox 97 11/24/23 07:28 O2 Del Method Room Air 11/24/23 07:28 O2 Flow Rate 3 10/05/23 16:00 BMI result Body Mass Index 22.7 Appearing in no acute distress alert Objective Data Active Medications Acetaminophen (Acetaminophen 325 Mg Tablet) 650 mg PO Q6H PRN PRN Reason: Pain, Mild (Pain Scale 1-3) Last Admin: 11/24/23 06:37 Dose: 650 mg Documented By: JUAN Al Hydroxide/Mg Hydroxide (Magnesium Hydrox/Alum Hydrox 30 Ml Oral.Susp) 30 ml PO Q6H PRN PRN Reason: GI Upset Last Admin: 11/19/23 19:16 Dose: 30 ml Documented By: ODRISBaldo Benzocaine (Throat Lozenge, Medicated Lozenge) 1 lozenge MUCOUS MEM Q2H PRN PRN Reason: Sore Throat Benzonatate (Benzonatate 100 Mg Capsule) 100 mg PO TID PRN PRN Reason: Cough Buprenorphine/Naloxone (Buprenorphine/Naloxone 8/2 Mg Film) 1 film SUBLINGUAL BID [facility] Last Admin: 11/24/23 08:32 Dose: 1 film Documented By: SILVESTRE Divalproex Sodium (Divalproex Sodium 250 Mg Tablet.) 250 mg PO TID [facility] Last Admin: 11/24/23 08:32 Dose: 250 mg Documented By: SILVESTRE Docusate Sodium (Docusate Sodium 100 Mg Capsule) 100 mg PO DAILY PRN PRN Reason: Constipation Magnesium Oxide (Magnesium Oxide 400 Mg Tablet) 400 mg PO BEDTIME [facility] Last Admin: 11/23/23 21:01 Dose: 400 mg Documented By: JUAN Multivitamins/Vitamin C (Multivitamin Tablet) 1 tab PO DAILY [facility] Last Admin: 11/24/23 08:32 Dose: 1 tab Documented By: SILVESTRE Nicotine Polacrilex (Nicotine Polacrilex 2 Mg Gum) 4 mg BUCCAL Q2H PRN PRN Reason: nicotine addiction Last Admin: 11/24/23 08:35 Dose: 4 mg Documented By: SILVESTRE Olanzapine (Olanzapine 10 Mg Vial) 5 mg IM DAILY PRN PRN Reason: severe agitation Ondansetron HCl (Ondansetron Hcl 4 Mg/2 Ml Vial) 4 mg IVPUSH Q8H PRN PRN Reason: Nausea and Vomiting Ondansetron HCl (Ondansetron Odt 4 Mg Tab.Rapdis) 4 mg TRANSLINGU Q6H PRN PRN Reason: Nausea and Vomiting Last Admin: 11/15/23 17:50 Dose: 4 mg Documented By: ANNA Risperidone (Risperidone 1 Mg Tablet) 1 mg PO BID [facility] Last Admin: 11/24/23 08:32 Dose: 1 mg Documented By: SILVESTRE Labs 11/18/23 05:46 11/18/23 05:46 Assessment and Plan (1) Alcoholic Korsakoff syndrome: Status: Acute Plan Pt is a 48-year-old female with a PMH significant for opioid use disorder on Suboxone, alcohol use disorder, and Korsakoff's syndrome? who initially presented to the ED on?09/19/2023 looking for her Clement that she had not seen for a few days. Pt apparently had heard he was at this hospital so she called an ambulance to bring her here. deemed not to have capacity and was admitted to await guardianship and LTC placement. Alcohol Korsakoff's syndrome Continue Depakote. seroquel changed to risperidone 11/08, may increase from 1 mg to 2 mg bid if needed Zyprexa 5 mg IM + Ativan 1 mg IM for breakthrough agitation labs 11/17 wnl Opioid use disorder Continue Suboxone Full Code Attending Dr. Curran DVT ppx Pt ambulatory. Requires ongoing hospitalization for guardianship and safe placement, awaiting LTC Quality Stroke Does the patient have a stroke diagnosis?: No VTE Prior VTE?: No VTE Risk Level:: Medical - low VTE Device Contraindication: Treatment Not Indicated VTE Drug Contraindication: Treatment Not Indicated
[2023-11-24 15:25] VITALS: BP 126/56; PULSE 70; RESP 16; TEMP 36.2; O2SAT 98
--- NOTE | 2023-11-24 17:09 | PC.NURSE ---
Pt calm and cooperative with care.
[2023-11-24] MEDS: Magnesium Oxide 400 MG TABLET PO (18:52)
[2023-11-24 19:41] VITALS: BP 102/57; PULSE 78; RESP 17; TEMP 36; O2SAT 97
[2023-11-25] MEDS: Nicotine Polacrilex 2 MG GUM 4 MG BUCCAL ×7 (00:06→21:06)
[2023-11-25] MEDS: Acetaminophen 325 MG TABLET 650 MG PO ×4 (01:25→21:06)
[2023-11-25 03:11] VITALS: BP 105/59; PULSE 63; RESP 16; TEMP 36.2; O2SAT 98
--- NOTE | 2023-11-25 06:57 | HO.PM.IMPN ---
Subjective Subjective Date of Service: 11/25/23 Interval History: seen and examined this morning follow up for placement no overnight events no specific events Review of Systems Review of Systems: Yes all other systems are reviewed and are negative Constitutional Constitutional: Denies chills and Denies fever(s) Cardiovascular Cardiovascular: Denies chest pain, Denies palpitations and Denies dyspnea Respiratory Respiratory: Denies cough and Denies dyspnea Endocrine Endocrine: Denies palpitations Physical Exam Vital Signs: Vital Signs: Last Vital Signs Temp 97.1 F 11/25/23 03:11 Pulse 63 11/25/23 03:11 Resp 16 11/25/23 03:11 BP 105/59 L 11/25/23 03:11 Pulse Ox 98 11/25/23 03:11 O2 Del Method Room Air 11/25/23 03:11 O2 Flow Rate 3 10/05/23 16:00 BMI result Body Mass Index 22.7 alert no abd pain LSCTA Objective Data Active Medications Acetaminophen (Acetaminophen 325 Mg Tablet) 650 mg PO Q6H PRN PRN Reason: Pain, Mild (Pain Scale 1-3) Last Admin: 11/25/23 01:25 Dose: 650 mg Documented By: TANK Al Hydroxide/Mg Hydroxide (Magnesium Hydrox/Alum Hydrox 30 Ml Oral.Susp) 30 ml PO Q6H PRN PRN Reason: GI Upset Last Admin: 11/19/23 19:16 Dose: 30 ml Documented By: ODRISM Benzocaine (Throat Lozenge, Medicated Lozenge) 1 lozenge MUCOUS MEM Q2H PRN PRN Reason: Sore Throat Benzonatate (Benzonatate 100 Mg Capsule) 100 mg PO TID PRN PRN Reason: Cough Buprenorphine/Naloxone (Buprenorphine/Naloxone 8/2 Mg Film) 1 film SUBLINGUAL BID [facility] Last Admin: 11/24/23 18:52 Dose: 1 film Documented By: CHRISTOFER Divalproex Sodium (Divalproex Sodium 250 Mg Tablet.) 250 mg PO TID [facility] Last Admin: 11/24/23 18:52 Dose: 250 mg Documented By: CHRISTOFER Docusate Sodium (Docusate Sodium 100 Mg Capsule) 100 mg PO DAILY PRN PRN Reason: Constipation Magnesium Oxide (Magnesium Oxide 400 Mg Tablet) 400 mg PO BEDTIME [facility] Last Admin: 11/24/23 18:52 Dose: 400 mg Documented By: CHRISTOFER Multivitamins/Vitamin C (Multivitamin Tablet) 1 tab PO DAILY [facility] Last Admin: 11/24/23 08:32 Dose: 1 tab Documented By: SILVESTRE Nicotine Polacrilex (Nicotine Polacrilex 2 Mg Gum) 4 mg BUCCAL Q2H PRN PRN Reason: nicotine addiction Last Admin: 11/25/23 00:06 Dose: 4 mg Documented By: TANK Olanzapine (Olanzapine 10 Mg Vial) 5 mg IM DAILY PRN PRN Reason: severe agitation Ondansetron HCl (Ondansetron Hcl 4 Mg/2 Ml Vial) 4 mg IVPUSH Q8H PRN PRN Reason: Nausea and Vomiting Ondansetron HCl (Ondansetron Odt 4 Mg Tab.Rapdis) 4 mg TRANSLINGU Q6H PRN PRN Reason: Nausea and Vomiting Last Admin: 11/15/23 17:50 Dose: 4 mg Documented By: ANNA Risperidone (Risperidone 1 Mg Tablet) 1 mg PO BID [facility] Last Admin: 11/24/23 18:52 Dose: 1 mg Documented By: CHRISTOFER Labs 11/25/23 07:41 11/25/23 07:41 Assessment and Plan (1) Alcoholic Korsakoff syndrome: Status: Acute Plan Pt is a 48-year-old female with a PMH significant for opioid use disorder on Suboxone, alcohol use disorder, and Korsakoff's syndrome? who initially presented to the ED on?09/19/2023 looking for her Clement that she had not seen for a few days. Pt apparently had heard he was at this hospital so she called an ambulance to bring her here. deemed not to have capacity and was admitted to await guardianship and LTC placement. Alcohol Korsakoff's syndrome Continue Depakote and risperidone, may increase from 1 mg to 2 mg bid if needed Zyprexa 5 mg IM + Ativan 1 mg IM for breakthrough agitation labs 11/24 wnl Opioid use disorder no withdrawal symptoms Continue Suboxone Full Code Attending Dr. Hall DVT ppx Pt ambulatory. Requires ongoing hospitalization for guardianship and safe placement, awaiting LTC Quality Stroke Does the patient have a stroke diagnosis?: No VTE Prior VTE?: No VTE Risk Level:: Medical - low VTE Device Contraindication: Treatment Not Indicated VTE Drug Contraindication: Treatment Not Indicated
[2023-11-25 07:19] VITALS: BP 131/78; PULSE 58; RESP 14; TEMP 36; O2SAT 98
[2023-11-25 08:06] LABS: Hematocrit 32.5 % (37.0-47.0); Hemoglobin 11.1 g/dl (12.0-16.0); Mean Corpuscular HGB Conc 34.2 g/dl (31.0-35.0); Mean Corpuscular Hemoglobin 32.6 pg (27.0-33.0); Mean Corpuscular Volume 95.6 fL (80.0-98.0); Mean Platelet Volume 10.1 fL (9.4-12.3); Platelet Count 167 X10*3/uL (160-400); Red Cell Distribution Width 12.3 % (11.0-16.0); White Blood Count 6.2 X10*3/uL (4.8-10.8)
[2023-11-25 08:24] LABS: Anion Gap 10 (12-20); Blood Urea Nitrogen 8 mg/dL (9-16); Calcium 9.5 mg/dL (8.4-10.2); Carbon Dioxide 27 mmol/L (22-29); Chloride 105 mmol/L (96-108); Creatinine Clr Calc Pharmacy 80.2; Estimated Glomerular Filt Rate > 60; Glucose Random 91 mg/dL (60-115); Potassium 4.3 mmol/L (3.3-5.1); Sodium 138 mmol/L (135-145)
[2023-11-25] MEDS: Multivitamin TABLET 1 TAB PO (08:59)
[2023-11-25] MEDS: Divalproex Sodium 250 MG TABLET.DR PO ×3 (08:59→21:06)
[2023-11-25] MEDS: Buprenorphine/Naloxone 8/2 mg FILM 1 FILM SUBLINGUAL ×2 (08:59→21:05)
[2023-11-25] MEDS: risperiDONE 1 MG TABLET PO ×2 (08:59→21:05)
--- NOTE | 2023-11-25 12:36 | PC.NURSE ---
pt cooperative no behavorial issues
--- NOTE | 2023-11-25 14:05 | MHC.CM.PN ---
EMR REVIEWED. [facility]O AND [facility] A UPDATED, NO BED AVAILABILITY TODAY, WILL CONTINUE TO UPDATE DAILY.
[2023-11-25 15:31] VITALS: BP 103/54; PULSE 74; RESP 18; TEMP 36.2; O2SAT 96
[2023-11-25 19:07] VITALS: BP 110/56; PULSE 65; RESP 20; TEMP 36.4; O2SAT 96
[2023-11-25] MEDS: Magnesium Oxide 400 MG TABLET PO (21:05)
[2023-11-26 03:51] VITALS: BP 117/61; PULSE 59; RESP 16; TEMP 36.2; O2SAT 96
--- NOTE | 2023-11-26 07:07 | P.PNIM_ITS ---
Subjective Subjective Date of Service: 11/26/23 Interval History: seen and examined this morning follow up for placement no overnight events no specific events Review of Systems Review of Systems: Yes all other systems are reviewed and are negative Constitutional Constitutional: Denies chills and Denies fever(s) Cardiovascular Cardiovascular: Denies chest pain, Denies palpitations and Denies dyspnea Respiratory Respiratory: Denies cough and Denies dyspnea Endocrine Endocrine: Denies palpitations Physical Exam 2 Vital Signs: Vital Signs: Last Vital Signs Temp 97.1 F 11/26/23 03:51 Pulse 59 11/26/23 03:51 Resp 16 11/26/23 03:51 BP 117/61 11/26/23 03:51 Pulse Ox 96 11/26/23 03:51 O2 Del Method Room Air 11/26/23 03:51 O2 Flow Rate 3 10/05/23 16:00 BMI result Body Mass Index 22.7 alert, intermit confusion Objective Data Active Medications Acetaminophen (Acetaminophen 325 Mg Tablet) 650 mg PO Q6H PRN PRN Reason: Pain, Mild (Pain Scale 1-3) Last Admin: 11/25/23 21:06 Dose: 650 mg Documented By: TANK Al Hydroxide/Mg Hydroxide (Magnesium Hydrox/Alum Hydrox 30 Ml Oral.Susp) 30 ml PO Q6H PRN PRN Reason: GI Upset Last Admin: 11/19/23 19:16 Dose: 30 ml Documented By: LAMIN Benzocaine (Throat Lozenge, Medicated Lozenge) 1 lozenge MUCOUS MEM Q2H PRN PRN Reason: Sore Throat Benzonatate (Benzonatate 100 Mg Capsule) 100 mg PO TID PRN PRN Reason: Cough Buprenorphine/Naloxone (Buprenorphine/Naloxone 8/2 Mg Film) 1 film SUBLINGUAL BID [facility] Last Admin: 11/25/23 21:05 Dose: 1 film Documented By: TANK Divalproex Sodium (Divalproex Sodium 250 Mg Tablet.) 250 mg PO TID [facility] Last Admin: 11/25/23 21:06 Dose: 250 mg Documented By: TANK Docusate Sodium (Docusate Sodium 100 Mg Capsule) 100 mg PO DAILY PRN PRN Reason: Constipation Magnesium Oxide (Magnesium Oxide 400 Mg Tablet) 400 mg PO BEDTIME [facility] Last Admin: 11/25/23 21:05 Dose: 400 mg Documented By: TANK Multivitamins/Vitamin C (Multivitamin Tablet) 1 tab PO DAILY [facility] Last Admin: 11/25/23 08:59 Dose: 1 tab Documented By: JOSEPH Nicotine Polacrilex (Nicotine Polacrilex 2 Mg Gum) 4 mg BUCCAL Q2H PRN PRN Reason: nicotine addiction Last Admin: 11/25/23 21:06 Dose: 4 mg Documented By: TANK Olanzapine (Olanzapine 10 Mg Vial) 5 mg IM DAILY PRN PRN Reason: severe agitation Ondansetron HCl (Ondansetron Hcl 4 Mg/2 Ml Vial) 4 mg IVPUSH Q8H PRN PRN Reason: Nausea and Vomiting Ondansetron HCl (Ondansetron Odt 4 Mg Tab.Rapdis) 4 mg TRANSLINGU Q6H PRN PRN Reason: Nausea and Vomiting Last Admin: 11/15/23 17:50 Dose: 4 mg Documented By: LIBORIOJ Risperidone (Risperidone 1 Mg Tablet) 1 mg PO BID [facility] Last Admin: 11/25/23 21:05 Dose: 1 mg Documented By: TANK Labs 11/25/23 07:41 11/25/23 07:41 Labs: Laboratory Results - last 24 hr 11/25/23 07:41 MCV 95.6 MCH 32.6 MCHC 34.2 RDW 12.3 Plt Count 167 MPV 10.1 Absolute Nucleated RBC 0.000 Nucleated RBC % (auto) 0.0 Anion Gap 10 L Estim Creat Clear Calc 80.2 Estimated GFR > 60 Random Glucose 91 Calcium 9.5 D Assessment and Plan (1) Alcoholic Korsakoff syndrome: Status: Acute Plan Pt is a 48-year-old female with a PMH significant for opioid use disorder on Suboxone, alcohol use disorder, and Korsakoff's syndrome? who initially presented to the ED on?09/19/2023 looking for her Clement that she had not seen for a few days. Pt apparently had heard he was at this hospital so she called an ambulance to bring her here. deemed not to have capacity and was admitted to await guardianship and LTC placement. Alcohol Korsakoff's syndrome Continue Depakote and risperidone, may increase from 1 mg to 2 mg bid if needed Zyprexa 5 mg IM + Ativan 1 mg IM for breakthrough agitation labs 11/24 wnl Opioid use disorder no withdrawal symptoms Continue Suboxone Full Code Attending Dr. Hall DVT ppx Pt ambulatory. Requires ongoing hospitalization for guardianship and safe placement, awaiting LTC Quality Stroke Does the patient have a stroke diagnosis?: No VTE Prior VTE?: No VTE Risk Level:: Medical - low VTE Device Contraindication: Treatment Not Indicated VTE Drug Contraindication: Treatment Not Indicated
[2023-11-26 08:00] VITALS: BP 107/58; PULSE 57; RESP 16; TEMP 36.4; O2SAT 96
[2023-11-26] MEDS: Acetaminophen 325 MG TABLET 650 MG PO ×3 (09:12→23:17)
[2023-11-26] MEDS: Divalproex Sodium 250 MG TABLET.DR PO ×3 (09:12→20:01)
[2023-11-26] MEDS: Nicotine Polacrilex 2 MG GUM 4 MG BUCCAL ×6 (09:12→23:16)
[2023-11-26] MEDS: Multivitamin TABLET 1 TAB PO (09:12)
[2023-11-26] MEDS: Buprenorphine/Naloxone 8/2 mg FILM 1 FILM SUBLINGUAL ×2 (09:12→20:01)
[2023-11-26] MEDS: risperiDONE 1 MG TABLET PO ×2 (09:12→20:01)
[2023-11-26 15:25] VITALS: BP 107/56; PULSE 64; RESP 16; TEMP 36.4; O2SAT 96
[2023-11-26 19:09] VITALS: BP 120/58; PULSE 67; RESP 17; TEMP 36.3; O2SAT 99
[2023-11-26] MEDS: Magnesium Oxide 400 MG TABLET PO (20:01)
[2023-11-27] MEDS: Nicotine Polacrilex 2 MG GUM 4 MG BUCCAL ×8 (03:47→23:48)
--- NOTE | 2023-11-27 07:22 | HO.PM.IMPN ---
Subjective Subjective Date of Service: 11/27/23 Interval History: seen and examined this morning follow up for placement no overnight events Review of Systems Review of Systems: Yes all other systems are reviewed and are negative Constitutional Constitutional: Denies chills and Denies fever(s) Cardiovascular Cardiovascular: Denies chest pain, Denies palpitations and Denies dyspnea Respiratory Respiratory: Denies cough and Denies dyspnea Endocrine Endocrine: Denies palpitations Physical Exam Vital Signs: Vital Signs: Last Vital Signs Temp 97.4 F 11/26/23 19:09 Pulse 67 11/26/23 19:09 Resp 17 11/26/23 19:09 BP 120/58 L 11/26/23 19:09 Pulse Ox 99 11/26/23 19:09 O2 Del Method Room Air 11/26/23 19:09 O2 Flow Rate 3 10/05/23 16:00 BMI result Body Mass Index 22.7 alert, intermit confusion ambulating in room Objective Data Active Medications Acetaminophen (Acetaminophen 325 Mg Tablet) 650 mg PO Q6H PRN PRN Reason: Pain, Mild (Pain Scale 1-3) Last Admin: 11/26/23 23:17 Dose: 650 mg Documented By: TANK Al Hydroxide/Mg Hydroxide (Magnesium Hydrox/Alum Hydrox 30 Ml Oral.Susp) 30 ml PO Q6H PRN PRN Reason: GI Upset Last Admin: 11/19/23 19:16 Dose: 30 ml Documented By: LAMIN Benzocaine (Throat Lozenge, Medicated Lozenge) 1 lozenge MUCOUS MEM Q2H PRN PRN Reason: Sore Throat Benzonatate (Benzonatate 100 Mg Capsule) 100 mg PO TID PRN PRN Reason: Cough Buprenorphine/Naloxone (Buprenorphine/Naloxone 8/2 Mg Film) 1 film SUBLINGUAL BID [facility] Last Admin: 11/26/23 20:01 Dose: 1 film Documented By: TANK Divalproex Sodium (Divalproex Sodium 250 Mg Tablet.) 250 mg PO TID [facility] Last Admin: 11/26/23 20:01 Dose: 250 mg Documented By: TANK Docusate Sodium (Docusate Sodium 100 Mg Capsule) 100 mg PO DAILY PRN PRN Reason: Constipation Magnesium Oxide (Magnesium Oxide 400 Mg Tablet) 400 mg PO BEDTIME [facility] Last Admin: 04/02/24 20:01 Dose: 400 mg Documented By: TANK Multivitamins/Vitamin C (Multivitamin Tablet) 1 tab PO DAILY [facility] Last Admin: 11/26/23 09:12 Dose: 1 tab Documented By: JOSEPH Nicotine Polacrilex (Nicotine Polacrilex 2 Mg Gum) 4 mg BUCCAL Q2H PRN PRN Reason: nicotine addiction Last Admin: 11/27/23 03:47 Dose: 4 mg Documented By: TANK Olanzapine (Olanzapine 10 Mg Vial) 5 mg IM DAILY PRN PRN Reason: severe agitation Ondansetron HCl (Ondansetron Hcl 4 Mg/2 Ml Vial) 4 mg IVPUSH Q8H PRN PRN Reason: Nausea and Vomiting Ondansetron HCl (Ondansetron Odt 4 Mg Tab.Rapdis) 4 mg TRANSLINGU Q6H PRN PRN Reason: Nausea and Vomiting Last Admin: 11/15/23 17:50 Dose: 4 mg Documented By: LIBORIOJ Risperidone (Risperidone 1 Mg Tablet) 1 mg PO BID [facility] Last Admin: 11/26/23 20:01 Dose: 1 mg Documented By: TANK Labs 11/25/23 07:41 11/25/23 07:41 Assessment and Plan (1) Alcoholic Korsakoff syndrome: Status: Acute Plan Pt is a 48-year-old female with a PMH significant for opioid use disorder on Suboxone, alcohol use disorder, and Korsakoff's syndrome? who initially presented to the ED on?09/19/2023 looking for her Clement that she had not seen for a few days. Pt apparently had heard he was at this hospital so she called an ambulance to bring her here. deemed not to have capacity and was admitted to await guardianship and LTC placement. Alcohol Korsakoff's syndrome Continue Depakote and risperidone, may increase from 1 mg to 2 mg bid if needed Zyprexa 5 mg IM + Ativan 1 mg IM for breakthrough agitation labs 11/24 wnl Opioid use disorder no withdrawal symptoms Continue Suboxone Full Code Attending Dr. Hall DVT ppx Pt ambulatory. Requires ongoing hospitalization for guardianship and safe placement, awaiting LTC Quality Stroke Does the patient have a stroke diagnosis?: No VTE Prior VTE?: No VTE Risk Level:: Medical - low VTE Device Contraindication: Treatment Not Indicated VTE Drug Contraindication: Treatment Not Indicated
[2023-11-27 07:34] VITALS: BP 93/46; PULSE 63; RESP 18; TEMP 36.3; O2SAT 96
[2023-11-27 07:51] VITALS: BP 104/59
[2023-11-27] MEDS: Multivitamin TABLET 1 TAB PO (08:02)
[2023-11-27] MEDS: risperiDONE 1 MG TABLET PO ×2 (08:02→20:35)
[2023-11-27] MEDS: Buprenorphine/Naloxone 8/2 mg FILM 1 FILM SUBLINGUAL ×2 (08:02→20:35)
[2023-11-27] MEDS: Divalproex Sodium 250 MG TABLET.DR PO ×3 (08:02→20:35)
[2023-11-27] MEDS: Acetaminophen 325 MG TABLET 650 MG PO ×3 (08:02→20:36)
--- NOTE | 2023-11-27 12:36 | MHC.CM.PN ---
EMR REVIEWED . PT REMAINS MEDICALLY CLEARED. AWAITING FEMALE LTC BED TO OPEN AT [facility] AND [facility] IS FOLLOWING FOR THE SAME. CM WILL CONTINUE TO FOLLOW FOR ANY CHANGE IN DC PLAN/NEEDS.
[2023-11-27 15:32] VITALS: BP 113/75; PULSE 82; RESP 17; TEMP 36.3; O2SAT 98
[2023-11-27 19:56] VITALS: BP 128/77; PULSE 77; RESP 18; TEMP 36.2; O2SAT 96
[2023-11-27] MEDS: Magnesium Oxide 400 MG TABLET PO (20:35)
[2023-11-28 02:19] VITALS: BP 102/60; PULSE 62; RESP 16; TEMP 36.6; O2SAT 95
[2023-11-28 07:37] VITALS: BP 104/57; PULSE 60; RESP 16; TEMP 36.7; O2SAT 96
[2023-11-28] MEDS: Divalproex Sodium 250 MG TABLET.DR PO ×3 (08:30→20:34)
[2023-11-28] MEDS: Multivitamin TABLET 1 TAB PO (08:31)
[2023-11-28] MEDS: risperiDONE 1 MG TABLET PO ×2 (08:31→20:34)
[2023-11-28] MEDS: Acetaminophen 325 MG TABLET 650 MG PO ×3 (08:31→20:34)
[2023-11-28] MEDS: Nicotine Polacrilex 2 MG GUM 4 MG BUCCAL ×5 (08:31→22:35)
[2023-11-28] MEDS: Buprenorphine/Naloxone 8/2 mg FILM 1 FILM SUBLINGUAL ×2 (08:31→20:34)
--- NOTE | 2023-11-28 12:28 | PC.NURSE ---
Pt calm and cooperative with care.
--- NOTE | 2023-11-28 15:11 | P.PNIM_ITS ---
Subjective Subjective Date of Service: 11/28/23 Interval History: Seen and examined this morning Follow-up for placement No overnight events No specific complaints this morning Physical Exam 2 Vital Signs: Vital Signs: Last Vital Signs Temp 98.0 F 11/28/23 07:37 Pulse 60 11/28/23 07:37 Resp 16 11/28/23 07:37 BP 104/57 L 11/28/23 07:37 Pulse Ox 96 11/28/23 07:37 O2 Del Method Room Air 11/28/23 07:37 O2 Flow Rate 3 10/05/23 16:00 BMI result Body Mass Index 22.7 Const: General: cooperative, comfortable, no acute distress, alert and awake Nutritional Appearance: average body habitus Resp: Effort & Inspection: normal respiratory effort, able to speak in complete sentences, no respiratory distress and no use of accessory muscles Cardio: Rate: regular rate GI: Inspection: No distended Palpation (GI): Soft to palpation Neuro: Other: ambulating in room, grossly nonfocal, moving all extremities General: moves all extremities Extrem: General: Yes no pedal edema Objective Data Active Medications Acetaminophen (Acetaminophen 325 Mg Tablet) 650 mg PO Q6H PRN PRN Reason: Pain, Mild (Pain Scale 1-3) Last Admin: 11/28/23 14:16 Dose: 650 mg Documented By: SILVESTRE Al Hydroxide/Mg Hydroxide (Magnesium Hydrox/Alum Hydrox 30 Ml Oral.Susp) 30 ml PO Q6H PRN PRN Reason: GI Upset Last Admin: 11/19/23 19:16 Dose: 30 ml Documented By: ODRISM Benzocaine (Throat Lozenge, Medicated Lozenge) 1 lozenge MUCOUS MEM Q2H PRN PRN Reason: Sore Throat Benzonatate (Benzonatate 100 Mg Capsule) 100 mg PO TID PRN PRN Reason: Cough Buprenorphine/Naloxone (Buprenorphine/Naloxone 8/2 Mg Film) 1 film SUBLINGUAL BID [facility] Last Admin: 11/28/23 08:31 Dose: 1 film Documented By: SILVESTRE Divalproex Sodium (Divalproex Sodium 250 Mg Tablet.Dr) 250 mg PO TID [facility] Last Admin: 11/28/23 14:14 Dose: 250 mg Documented By: SILVESTRE Docusate Sodium (Docusate Sodium 100 Mg Capsule) 100 mg PO DAILY PRN PRN Reason: Constipation Magnesium Oxide (Magnesium Oxide 400 Mg Tablet) 400 mg PO BEDTIME [facility] Last Admin: 11/27/23 20:35 Dose: 400 mg Documented By: LARISBaldo Multivitamins/Vitamin C (Multivitamin Tablet) 1 tab PO DAILY [facility] Last Admin: 11/28/23 08:31 Dose: 1 tab Documented By: SILVESTRE Nicotine Polacrilex (Nicotine Polacrilex 2 Mg Gum) 4 mg BUCCAL Q2H PRN PRN Reason: nicotine addiction Last Admin: 11/28/23 14:15 Dose: 4 mg Documented By: SILVESTRE Olanzapine (Olanzapine 10 Mg Vial) 5 mg IM DAILY PRN PRN Reason: severe agitation Ondansetron HCl (Ondansetron Hcl 4 Mg/2 Ml Vial) 4 mg IVPUSH Q8H PRN PRN Reason: Nausea and Vomiting Ondansetron HCl (Ondansetron Odt 4 Mg Tab.Rapdis) 4 mg TRANSLINGU Q6H PRN PRN Reason: Nausea and Vomiting Last Admin: 11/15/23 17:50 Dose: 4 mg Documented By: ANNA Risperidone (Risperidone 1 Mg Tablet) 1 mg PO BID [facility] Last Admin: 11/28/23 08:31 Dose: 1 mg Documented By: SILVESTRE Labs 11/25/23 07:41 11/25/23 07:41 Assessment and Plan (1) Alcoholic Korsakoff syndrome: Status: Acute Plan Pt is a 48-year-old female with a PMH significant for opioid use disorder on Suboxone, alcohol use disorder, and Korsakoff's syndrome? who initially presented to the ED on?09/19/2023 looking for her Clement that she had not seen for a few days. Pt apparently had heard he was at this hospital so she called an ambulance to bring her here. deemed not to have capacity and was admitted to await guardianship and LTC placement. Alcohol Korsakoff's syndrome Continue Depakote and risperidone, may increase from 1 mg to 2 mg bid if needed Zyprexa 5 mg IM + Ativan 1 mg IM for breakthrough agitation labs 11/24 wnl Opioid use disorder no withdrawal symptoms Continue Suboxone Full Code Attending Dr. Hall DVT ppx Pt ambulatory. Requires ongoing hospitalization for guardianship and safe placement, awaiting LTC Quality Stroke Does the patient have a stroke diagnosis?: No VTE Prior VTE?: No VTE Risk Level:: Medical - low VTE Device Contraindication: Treatment Not Indicated VTE Drug Contraindication: Treatment Not Indicated
[2023-11-28 15:13] VITALS: BP 105/57; PULSE 66; RESP 16; TEMP 36.9; O2SAT 97
[2023-11-28 20:00] VITALS: BP 108/58; PULSE 70; RESP 18; TEMP 36.2; O2SAT 95
[2023-11-28] MEDS: Magnesium Oxide 400 MG TABLET PO (20:34)
[2023-11-29] MEDS: Nicotine Polacrilex 2 MG GUM 4 MG BUCCAL ×9 (00:37→23:29)
[2023-11-29 04:00] VITALS: BP 111/58; PULSE 72; RESP 20; TEMP 36.6; O2SAT 96
[2023-11-29] MEDS: Acetaminophen 325 MG TABLET 650 MG PO ×3 (06:21→19:05)
[2023-11-29 07:33] VITALS: BP 115/62; PULSE 62; RESP 16; TEMP 36.6; O2SAT 97
[2023-11-29] MEDS: risperiDONE 1 MG TABLET PO ×2 (08:30→20:06)
[2023-11-29] MEDS: Divalproex Sodium 250 MG TABLET.DR PO ×3 (08:30→20:06)
[2023-11-29] MEDS: Multivitamin TABLET 1 TAB PO (08:30)
[2023-11-29] MEDS: Buprenorphine/Naloxone 8/2 mg FILM 1 FILM SUBLINGUAL ×2 (08:32→20:06)
--- NOTE | 2023-11-29 09:05 | MHC.CM.PN ---
EMR REVIEWED, [facility] PIZANO AND [facility] A FOLLOWING PENDING BED AVAILABILITY, SNF REFERRAL UPDATED AND CM WILL CONT TO FOLLOW DC NEEDS.
--- NOTE | 2023-11-29 09:40 | PC.NURSE ---
Calm and Cooperative with care this shift.
--- NOTE | 2023-11-29 11:34 | PC.NURSE ---
Noted legs swollen, Bilateral Pulses Palpable and heard with Doppler. US to r/o DVT.
--- NOTE | 2023-11-29 13:53 | P.PNIM_ITS ---
Subjective Subjective Date of Service: 11/29/23 Interval History: seen and examined this morning follow up for placement reporting leg swelling which is new. no respiratory symptoms Review of Systems Review of Systems: Yes all other systems are reviewed and are negative Constitutional Constitutional: Denies chills and Denies fever(s) Cardiovascular Cardiovascular: Denies chest pain and Denies dyspnea Respiratory Respiratory: Denies dyspnea Physical Exam 2 Vital Signs: Vital Signs: Last Vital Signs Temp 97.9 F 11/29/23 07:33 Pulse 62 11/29/23 07:33 Resp 16 11/29/23 07:33 BP 115/62 11/29/23 07:33 Pulse Ox 97 11/29/23 07:33 O2 Del Method Room Air 11/29/23 07:33 O2 Flow Rate 3 10/05/23 16:00 BMI result Body Mass Index 22.7 Const: General: cooperative, comfortable, no acute distress, alert and awake Nutritional Appearance: average body habitus Resp: Effort & Inspection: normal respiratory effort, able to speak in complete sentences, no respiratory distress and no use of accessory muscles Cardio: Rate: regular rate GI: Inspection: No distended Palpation (GI): Soft to palpation Neuro: Other: ambulating in room, grossly nonfocal, moving all extremities Extrem: Other: b/l LE leg swelling L>R. no erythema Objective Data Active Medications Acetaminophen (Acetaminophen 325 Mg Tablet) 650 mg PO Q6H PRN PRN Reason: Pain, Mild (Pain Scale 1-3) Last Admin: 11/29/23 12:17 Dose: 650 mg Documented By: SILVESTRE Al Hydroxide/Mg Hydroxide (Magnesium Hydrox/Alum Hydrox 30 Ml Oral.Susp) 30 ml PO Q6H PRN PRN Reason: GI Upset Last Admin: 11/19/23 19:16 Dose: 30 ml Documented By: ODRISM Benzocaine (Throat Lozenge, Medicated Lozenge) 1 lozenge MUCOUS MEM Q2H PRN PRN Reason: Sore Throat Benzonatate (Benzonatate 100 Mg Capsule) 100 mg PO TID PRN PRN Reason: Cough Buprenorphine/Naloxone (Buprenorphine/Naloxone 8/2 Mg Film) 1 film SUBLINGUAL BID JEANNINE Last Admin: 11/29/23 08:32 Dose: 1 film Documented By: SILVESTRE Divalproex Sodium (Divalproex Sodium 250 Mg Tablet.) 250 mg PO TID [facility] Last Admin: 11/29/23 08:30 Dose: 250 mg Documented By: SILVESTRE Docusate Sodium (Docusate Sodium 100 Mg Capsule) 100 mg PO DAILY PRN PRN Reason: Constipation Magnesium Oxide (Magnesium Oxide 400 Mg Tablet) 400 mg PO BEDTIME [facility] Last Admin: 11/28/23 20:34 Dose: 400 mg Documented By: ODRISM Multivitamins/Vitamin C (Multivitamin Tablet) 1 tab PO DAILY [facility] Last Admin: 11/29/23 08:30 Dose: 1 tab Documented By: SILVESTRE Nicotine Polacrilex (Nicotine Polacrilex 2 Mg Gum) 4 mg BUCCAL Q2H PRN PRN Reason: nicotine addiction Last Admin: 11/29/23 12:17 Dose: 4 mg Documented By: SILVESTRE Olanzapine (Olanzapine 10 Mg Vial) 5 mg IM DAILY PRN PRN Reason: severe agitation Ondansetron HCl (Ondansetron Hcl 4 Mg/2 Ml Vial) 4 mg IVPUSH Q8H PRN PRN Reason: Nausea and Vomiting Ondansetron HCl (Ondansetron Odt 4 Mg Tab.Rapdis) 4 mg TRANSLINGU Q6H PRN PRN Reason: Nausea and Vomiting Last Admin: 11/15/23 17:50 Dose: 4 mg Documented By: ANNA Risperidone (Risperidone 1 Mg Tablet) 1 mg PO BID [facility] Last Admin: 11/29/23 08:30 Dose: 1 mg Documented By: SILVESTRE Labs 11/25/23 07:41 11/25/23 07:41 Assessment and Plan (1) Leg swelling: Status: Acute Plan Pt is a 48-year-old female with a PMH significant for opioid use disorder on Suboxone, alcohol use disorder, and Korsakoff's syndrome? who initially presented to the ED on?09/19/2023 looking for her Clement that she had not seen for a few days. Pt apparently had heard he was at this hospital so she called an ambulance to bring her here. deemed not to have capacity and was admitted to await guardianship and LTC placement. Alcohol Korsakoff's syndrome Continue Depakote and risperidone, may increase from 1 mg to 2 mg bid if needed Zyprexa 5 mg IM + Ativan 1 mg IM for breakthrough agitation labs 4/1 wnl leg swelling ambulating in room frequently but given prolonged hospital stay will rule out DVT b/l LE US pending keep legs elevated Opioid use disorder no withdrawal symptoms Continue Suboxone Full Code Attending Dr. Hall DVT ppx Pt ambulatory. Requires ongoing hospitalization for guardianship and safe placement, awaiting LTC Quality Stroke Does the patient have a stroke diagnosis?: No VTE Prior VTE?: No VTE Risk Level:: Medical - low VTE Device Contraindication: Treatment Not Indicated VTE Drug Contraindication: Treatment Not Indicated
[2023-11-29 15:34] VITALS: BP 108/76; PULSE 64; RESP 16; TEMP 36.4; O2SAT 100
--- NOTE | 2023-11-29 17:20 | PC.NURSE ---
DVT Neg, most likely dependent edema, patient often paces in room. Encouraged to take a break and elevate legs. Encouragement needed.
[2023-11-29 19:39] VITALS: BP 108/58; PULSE 70; RESP 20; TEMP 36.4; O2SAT 98
[2023-11-29] MEDS: Magnesium Oxide 400 MG TABLET PO (20:06)
[2023-11-30 03:37] VITALS: BP 95/52; PULSE 66; RESP 16; TEMP 36; O2SAT 96
[2023-11-30 08:00] VITALS: BP 125/60; PULSE 62; RESP 16; TEMP 36.4; O2SAT 98
[2023-11-30] MEDS: Nicotine Polacrilex 2 MG GUM 4 MG BUCCAL ×7 (08:53→23:13)
[2023-11-30] MEDS: Divalproex Sodium 250 MG TABLET.DR PO ×3 (08:53→19:20)
[2023-11-30] MEDS: risperiDONE 1 MG TABLET PO ×2 (08:53→19:20)
[2023-11-30] MEDS: Buprenorphine/Naloxone 8/2 mg FILM 1 FILM SUBLINGUAL ×2 (08:53→19:20)
[2023-11-30] MEDS: Multivitamin TABLET 1 TAB PO (08:53)
[2023-11-30] MEDS: Acetaminophen 325 MG TABLET 650 MG PO ×2 (13:02→19:30)
[2023-11-30 15:13] VITALS: BP 111/55; PULSE 66; RESP 18; TEMP 36.3; O2SAT 97
[2023-11-30 15:53] LABS: B Type Natriuretic Peptide 77 pg/mL (<100)
--- NOTE | 2023-11-30 16:42 | HO.PM.IMPN ---
Subjective Subjective Date of Service: 11/30/23 Interval History: Seen and examined this morning Follow-up for placement Patient reporting ongoing lower extremity edema. Denies any shortness of breath, orthopnea, cough Review of Systems Review of Systems: Yes all other systems are reviewed and are negative Constitutional Constitutional: Denies fever(s) Cardiovascular Cardiovascular: Denies chest pain and Denies dyspnea Respiratory Respiratory: Denies dyspnea Physical Exam Vital Signs: Vital Signs: Last Vital Signs Temp 97.4 F 11/30/23 15:13 Pulse 66 11/30/23 15:13 Resp 18 11/30/23 15:13 BP 111/55 L 11/30/23 15:13 Pulse Ox 97 11/30/23 15:13 O2 Del Method Room Air 11/30/23 15:13 O2 Flow Rate 3 10/05/23 16:00 BMI result Body Mass Index 22.7 Const: General: cooperative, comfortable, no acute distress, alert and awake Nutritional Appearance: average body habitus Resp: Effort & Inspection: normal respiratory effort, able to speak in complete sentences, no respiratory distress and no use of accessory muscles Cardio: Rate: regular rate GI: Inspection: No distended Palpation (GI): Soft to palpation Neuro: Other: ambulating in room, grossly nonfocal, moving all extremities General: moves all extremities Extrem: Other: b/l LE leg swelling L>R. no erythema General: Yes no pedal edema Objective Data Active Medications Acetaminophen (Acetaminophen 325 Mg Tablet) 650 mg PO Q6H PRN PRN Reason: Pain, Mild (Pain Scale 1-3) Last Admin: 11/30/23 13:02 Dose: 650 mg Documented By: OH Al Hydroxide/Mg Hydroxide (Magnesium Hydrox/Alum Hydrox 30 Ml Oral.Susp) 30 ml PO Q6H PRN PRN Reason: GI Upset Last Admin: 11/19/23 19:16 Dose: 30 ml Documented By: ODRISM Benzocaine (Throat Lozenge, Medicated Lozenge) 1 lozenge MUCOUS MEM Q2H PRN PRN Reason: Sore Throat Benzonatate (Benzonatate 100 Mg Capsule) 100 mg PO TID PRN PRN Reason: Cough Buprenorphine/Naloxone (Buprenorphine/Naloxone 8/2 Mg Film) 1 film SUBLINGUAL BID JEANNINE Last Admin: 11/30/23 08:53 Dose: 1 film Documented By: OH Divalproex Sodium (Divalproex Sodium 250 Mg Tablet.) 250 mg PO TID [facility] Last Admin: 11/30/23 14:31 Dose: 250 mg Documented By: OH Docusate Sodium (Docusate Sodium 100 Mg Capsule) 100 mg PO DAILY PRN PRN Reason: Constipation Magnesium Oxide (Magnesium Oxide 400 Mg Tablet) 400 mg PO BEDTIME [facility] Last Admin: 11/29/23 20:06 Dose: 400 mg Documented By: EVERT Multivitamins/Vitamin C (Multivitamin Tablet) 1 tab PO DAILY [facility] Last Admin: 11/30/23 08:53 Dose: 1 tab Documented By: OH Nicotine Polacrilex (Nicotine Polacrilex 2 Mg Gum) 4 mg BUCCAL Q2H PRN PRN Reason: nicotine addiction Last Admin: 11/30/23 15:09 Dose: 4 mg Documented By: OH Olanzapine (Olanzapine 10 Mg Vial) 5 mg IM DAILY PRN PRN Reason: severe agitation Ondansetron HCl (Ondansetron Hcl 4 Mg/2 Ml Vial) 4 mg IVPUSH Q8H PRN PRN Reason: Nausea and Vomiting Ondansetron HCl (Ondansetron Odt 4 Mg Tab.Rapdis) 4 mg TRANSLINGU Q6H PRN PRN Reason: Nausea and Vomiting Last Admin: 11/15/23 17:50 Dose: 4 mg Documented By: ANNA Risperidone (Risperidone 1 Mg Tablet) 1 mg PO BID [facility] Last Admin: 11/30/23 08:53 Dose: 1 mg Documented By: OH Labs 11/25/23 07:41 11/25/23 07:41 Labs: Laboratory Results - last 24 hr 11/30/23 15:23 B-Natriuretic Peptide 77 Assessment and Plan (1) Leg swelling: Status: Acute Plan Pt is a 48-year-old female with a PMH significant for opioid use disorder on Suboxone, alcohol use disorder, and Korsakoff's syndrome? who initially presented to the ED on?09/19/2023 looking for her Clement that she had not seen for a few days. Pt apparently had heard he was at this hospital so she called an ambulance to bring her here. deemed not to have capacity and was admitted to await guardianship and LTC placement. Alcohol Korsakoff's syndrome Continue Depakote and risperidone, may increase from 1 mg to 2 mg bid if needed Zyprexa 5 mg IM + Ativan 1 mg IM for breakthrough agitation labs 11/24 wnl leg swelling b/l dopller negative for DVT will check BNP, BMP, LFTs keep legs elevated compression socks Opioid use disorder no withdrawal symptoms Continue Suboxone Full Code Attending Dr. Hall DVT ppx Pt ambulatory. Requires ongoing hospitalization for guardianship and safe placement, awaiting LTC Quality Stroke Does the patient have a stroke diagnosis?: No VTE Prior VTE?: No VTE Risk Level:: Medical - low VTE Device Contraindication: Treatment Not Indicated VTE Drug Contraindication: Treatment Not Indicated
[2023-11-30] MEDS: Magnesium Oxide 400 MG TABLET PO (19:20)
[2023-11-30 19:50] VITALS: BP 133/60; PULSE 71; RESP 18; TEMP 36.1; O2SAT 97
[2023-12-01] MEDS: Nicotine Polacrilex 2 MG GUM 4 MG BUCCAL ×10 (01:16→21:41)
[2023-12-01] MEDS: Acetaminophen 325 MG TABLET 650 MG PO ×4 (01:17→21:41)
[2023-12-01 03:19] VITALS: BP 108/58; PULSE 65; RESP 16; TEMP 36; O2SAT 97
[2023-12-01 07:01] VITALS: BP 110/68; PULSE 62; RESP 16; TEMP 36.6; O2SAT 98
[2023-12-01] MEDS: risperiDONE 1 MG TABLET PO ×2 (07:44→20:54)
[2023-12-01] MEDS: Divalproex Sodium 250 MG TABLET.DR PO ×3 (07:44→20:54)
[2023-12-01] MEDS: Multivitamin TABLET 1 TAB PO (07:45)
[2023-12-01] MEDS: Buprenorphine/Naloxone 8/2 mg FILM 1 FILM SUBLINGUAL ×2 (07:45→20:54)
[2023-12-01 10:59] LABS: Alanine Aminotransferase 15 U/L (0-31); Albumin Level 3.8 g/dL (3.5-5.0); Alkaline Phosphatase 81 U/L (39-117); Anion Gap 12 (12-20); Aspartate Amino Transferase 17 U/L (5-31); Bilirubin Direct 0.2 mg/dL (0.0-0.5); Bilirubin Total 0.6 mg/dL (0.0-1.0); Blood Urea Nitrogen 6 mg/dL (9-16); Calcium 9.4 mg/dL (8.4-10.2); Carbon Dioxide 25 mmol/L (22-29); Chloride 100 mmol/L (96-108); Creatinine Clr Calc Pharmacy 84.2; Estimated Glomerular Filt Rate > 60; Glucose Random 82 mg/dL (60-115); Sodium 133 mmol/L (135-145); Total Protein 6.8 g/dL (6.5-8.0)
--- NOTE | 2023-12-01 14:12 | P.PNIM_ITS ---
Subjective Subjective Date of Service: 12/01/23 Interval History: Seen and examined this morning Follow-up for placement, leg edema Continues to have leg edema Patient observed ambulating in room, wearing multiple michelle of pants, socks and compression socks all bunched up at ankle Review of Systems Review of Systems: Yes all other systems are reviewed and are negative Constitutional Constitutional: Denies fever(s) Physical Exam 2 Vital Signs: Vital Signs: Last Vital Signs Temp 97.9 F 12/01/23 07:01 Pulse 62 12/01/23 07:01 Resp 16 12/01/23 07:01 BP 110/68 12/01/23 07:01 Pulse Ox 98 12/01/23 07:01 O2 Del Method Room Air 12/01/23 07:01 O2 Flow Rate 3 10/05/23 16:00 BMI result Body Mass Index 22.7 Const: General: cooperative, comfortable, no acute distress, alert and awake Nutritional Appearance: average body habitus Resp: Effort & Inspection: normal respiratory effort, able to speak in complete sentences, no respiratory distress and no use of accessory muscles Cardio: Rate: regular rate GI: Inspection: No distended Palpation (GI): Soft to palpation Neuro: Other: ambulating in room, grossly nonfocal, moving all extremities General: moves all extremities Extrem: Other: b/l LE leg swelling L>R. no erythema, nontender; compression sock bunched up at ankle General: Yes no pedal edema Objective Data Active Medications Acetaminophen (Acetaminophen 325 Mg Tablet) 650 mg PO Q6H PRN PRN Reason: Pain, Mild (Pain Scale 1-3) Last Admin: 12/01/23 09:53 Dose: 650 mg Documented By: TREMAINE Al Hydroxide/Mg Hydroxide (Magnesium Hydrox/Alum Hydrox 30 Ml Oral.Susp) 30 ml PO Q6H PRN PRN Reason: GI Upset Last Admin: 11/19/23 19:16 Dose: 30 ml Documented By: LAMIN Benzocaine (Throat Lozenge, Medicated Lozenge) 1 lozenge MUCOUS MEM Q2H PRN PRN Reason: Sore Throat Benzonatate (Benzonatate 100 Mg Capsule) 100 mg PO TID PRN PRN Reason: Cough Buprenorphine/Naloxone (Buprenorphine/Naloxone 8/2 Mg Film) 1 film SUBLINGUAL BID JEANNINE Last Admin: 12/01/23 07:45 Dose: 1 film Documented By: TREMAINE Divalproex Sodium (Divalproex Sodium 250 Mg Tablet.) 250 mg PO TID [facility] Last Admin: 12/01/23 07:44 Dose: 250 mg Documented By: TREMAINE Docusate Sodium (Docusate Sodium 100 Mg Capsule) 100 mg PO DAILY PRN PRN Reason: Constipation Magnesium Oxide (Magnesium Oxide 400 Mg Tablet) 400 mg PO BEDTIME [facility] Last Admin: 11/30/23 19:20 Dose: 400 mg Documented By: MARI Multivitamins/Vitamin C (Multivitamin Tablet) 1 tab PO DAILY [facility] Last Admin: 12/01/23 07:45 Dose: 1 tab Documented By: TREMAINE Nicotine Polacrilex (Nicotine Polacrilex 2 Mg Gum) 4 mg BUCCAL Q2H PRN PRN Reason: nicotine addiction Last Admin: 12/01/23 13:37 Dose: 4 mg Documented By: TREMAINE Olanzapine (Olanzapine 10 Mg Vial) 5 mg IM DAILY PRN PRN Reason: severe agitation Ondansetron HCl (Ondansetron Hcl 4 Mg/2 Ml Vial) 4 mg IVPUSH Q8H PRN PRN Reason: Nausea and Vomiting Ondansetron HCl (Ondansetron Odt 4 Mg Tab.Rapdis) 4 mg TRANSLINGU Q6H PRN PRN Reason: Nausea and Vomiting Last Admin: 11/15/23 17:50 Dose: 4 mg Documented By: ANNA Risperidone (Risperidone 1 Mg Tablet) 1 mg PO BID [facility] Last Admin: 12/01/23 07:44 Dose: 1 mg Documented By: TREMAINE Labs 11/25/23 07:41 12/01/23 05:41 Labs: Laboratory Results - last 24 hr 11/30/23 12/01/23 15:23 05:41 Hold Purple Top SEE NOTE Anion Gap 12 Estim Creat Clear Calc 84.2 Estimated GFR > 60 Random Glucose 82 Calcium 9.4 Total Bilirubin 0.6 Direct Bilirubin 0.2 AST 17 ALT 15 Alkaline Phosphatase 81 B-Natriuretic Peptide 77 Total Protein 6.8 Albumin 3.8 Assessment and Plan (1) Leg swelling: Status: Acute Plan Pt is a 48-year-old female with a PMH significant for opioid use disorder on Suboxone, alcohol use disorder, and Korsakoff's syndrome? who initially presented to the ED on?09/19/2023 looking for her Clement that she had not seen for a few days. Pt apparently had heard he was at this hospital so she called an ambulance to bring her here. deemed not to have capacity and was admitted to await guardianship and LTC placement. Alcohol Korsakoff's syndrome Continue Depakote and risperidone, may increase from 1 mg to 2 mg bid if needed Zyprexa 5 mg IM + Ativan 1 mg IM for breakthrough agitation labs 11/24 wnl leg swelling b/l dopller negative for DVT BNP 77, albumin normal, renal function, liver function normal. no respiratory symptoms keep legs elevated compression socks Opioid use disorder no withdrawal symptoms Continue Suboxone Full Code DVT ppx Pt ambulatory. Requires ongoing hospitalization for guardianship and safe placement, awaiting LTC Quality Stroke Does the patient have a stroke diagnosis?: No VTE Prior VTE?: No VTE Risk Level:: Medical - low VTE Device Contraindication: Treatment Not Indicated VTE Drug Contraindication: Treatment Not Indicated
[2023-12-01 15:12] VITALS: BP 127/72; PULSE 69; RESP 18; TEMP 36.1; O2SAT 97
[2023-12-01 19:19] VITALS: BP 132/60; PULSE 73; RESP 16; TEMP 36.4; O2SAT 94
[2023-12-01] MEDS: Magnesium Oxide 400 MG TABLET PO (20:54)
[2023-12-01] MEDS: Ondansetron ODT 4 MG TAB.RAPDIS TRANSLINGU (23:36)
[2023-12-02 02:37] VITALS: BP 132/78; PULSE 86; RESP 16; TEMP 36.9; O2SAT 97
[2023-12-02 07:54] VITALS: BP 125/61; PULSE 84; RESP 16; TEMP 36.6; O2SAT 95
[2023-12-02] MEDS: Multivitamin TABLET 1 TAB PO (08:36)
[2023-12-02] MEDS: Acetaminophen 325 MG TABLET 650 MG PO ×3 (08:36→20:38)
[2023-12-02] MEDS: Nicotine Polacrilex 2 MG GUM 4 MG BUCCAL ×6 (08:36→23:30)
[2023-12-02] MEDS: Buprenorphine/Naloxone 8/2 mg FILM 1 FILM SUBLINGUAL ×2 (08:36→19:06)
[2023-12-02] MEDS: Divalproex Sodium 250 MG TABLET.DR PO ×3 (08:36→19:05)
[2023-12-02] MEDS: risperiDONE 1 MG TABLET PO ×2 (08:36→19:05)
--- NOTE | 2023-12-02 08:53 | HO.PM.IMPN ---
Subjective Subjective Date of Service: 12/02/23 Interval History: Seen and examined this morning Follow-up for placement, leg edema Continues to have leg edema Patient observed ambulating in room, wearing multiple michelle of pants, socks and compression socks all bunched up at ankle Review of Systems Review of Systems: Yes all other systems are reviewed and are negative Constitutional Constitutional: Denies fever(s) Physical Exam Vital Signs: Vital Signs: Last Vital Signs Temp 98 F 12/02/23 07:54 Pulse 84 12/02/23 07:54 Resp 16 12/02/23 07:54 BP 125/61 12/02/23 07:54 Pulse Ox 95 12/02/23 07:54 O2 Del Method Room Air 12/02/23 07:54 O2 Flow Rate 3 10/05/23 16:00 BMI result Body Mass Index 22.7 alert, intermittently confused bilateral LE edema left greater than right, no pain Objective Data Active Medications Acetaminophen (Acetaminophen 325 Mg Tablet) 650 mg PO Q6H PRN PRN Reason: Pain, Mild (Pain Scale 1-3) Last Admin: 12/02/23 08:36 Dose: 650 mg Documented By: MAR Al Hydroxide/Mg Hydroxide (Magnesium Hydrox/Alum Hydrox 30 Ml Oral.Susp) 30 ml PO Q6H PRN PRN Reason: GI Upset Last Admin: 11/19/23 19:16 Dose: 30 ml Documented By: LAMIN Benzocaine (Throat Lozenge, Medicated Lozenge) 1 lozenge MUCOUS MEM Q2H PRN PRN Reason: Sore Throat Benzonatate (Benzonatate 100 Mg Capsule) 100 mg PO TID PRN PRN Reason: Cough Buprenorphine/Naloxone (Buprenorphine/Naloxone 8/2 Mg Film) 1 film SUBLINGUAL BID [facility] Last Admin: 12/02/23 08:36 Dose: 1 film Documented By: COTHECTOR Divalproex Sodium (Divalproex Sodium 250 Mg Tablet.) 250 mg PO TID [facility] Last Admin: 12/02/23 08:36 Dose: 250 mg Documented By: MAR Docusate Sodium (Docusate Sodium 100 Mg Capsule) 100 mg PO DAILY PRN PRN Reason: Constipation Magnesium Oxide (Magnesium Oxide 400 Mg Tablet) 400 mg PO BEDTIME [facility] Last Admin: 12/01/23 20:54 Dose: 400 mg Documented By: JOE Multivitamins/Vitamin C (Multivitamin Tablet) 1 tab PO DAILY [facility] Last Admin: 12/02/23 08:36 Dose: 1 tab Documented By: MAR Nicotine Polacrilex (Nicotine Polacrilex 2 Mg Gum) 4 mg BUCCAL Q2H PRN PRN Reason: nicotine addiction Last Admin: 12/02/23 08:36 Dose: 4 mg Documented By: MAR Olanzapine (Olanzapine 10 Mg Vial) 5 mg IM DAILY PRN PRN Reason: severe agitation Ondansetron HCl (Ondansetron Hcl 4 Mg/2 Ml Vial) 4 mg IVPUSH Q8H PRN PRN Reason: Nausea and Vomiting Ondansetron HCl (Ondansetron Odt 4 Mg Tab.Rapdis) 4 mg TRANSLINGU Q6H PRN PRN Reason: Nausea and Vomiting Last Admin: 12/01/23 23:36 Dose: 4 mg Documented By: JOE Risperidone (Risperidone 1 Mg Tablet) 1 mg PO BID [facility] Last Admin: 12/02/23 08:36 Dose: 1 mg Documented By: MAR Labs 11/25/23 07:41 12/01/23 05:41 Labs: Laboratory Results - last 24 hr 12/01/23 05:41 Anion Gap 12 Estim Creat Clear Calc 84.2 Estimated GFR > 60 Random Glucose 82 Calcium 9.4 Total Bilirubin 0.6 Direct Bilirubin 0.2 AST 17 ALT 15 Alkaline Phosphatase 81 Total Protein 6.8 Albumin 3.8 Assessment and Plan (1) Leg swelling: Status: Acute Plan Pt is a 48-year-old female with a PMH significant for opioid use disorder on Suboxone, alcohol use disorder, and Korsakoff's syndrome? who initially presented to the ED on?09/19/2023 looking for her Clement that she had not seen for a few days. Pt apparently had heard he was at this hospital so she called an ambulance to bring her here. deemed not to have capacity and was admitted to await guardianship and LTC placement. Alcohol Korsakoff's syndrome Continue Depakote and risperidone, may increase from 1 mg to 2 mg bid if needed Zyprexa 5 mg IM + Ativan 1 mg IM for breakthrough agitation labs 11/24 wnl leg swelling b/l dopller negative for DVT BNP 77, albumin normal, renal function, liver function normal. no respiratory symptoms keep legs elevated compression socks Opioid use disorder no withdrawal symptoms Continue Suboxone Full Code DVT ppx Pt ambulatory. Requires ongoing hospitalization for guardianship and safe placement, awaiting LTC Quality Stroke Does the patient have a stroke diagnosis?: No VTE Prior VTE?: No VTE Risk Level:: Medical - low VTE Device Contraindication: Treatment Not Indicated VTE Drug Contraindication: Treatment Not Indicated
--- NOTE | 2023-12-02 11:23 | MHC.CM.PN ---
IMM 12/02/23 Patient discharged to [facility] today. [facility] will start services in the facility today. Transport is booked for 2:30pm apple picker. Patients HCP has been notified of the change in the transport time.
--- NOTE | 2023-12-02 12:06 | MHC.CM.PN ---
A clinical update has been sent to [facility]. A request for anticipated bed offer date has been made. CM will follow for placement.
[2023-12-02 15:53] VITALS: BP 118/56; PULSE 78; RESP 20; TEMP 37.3; O2SAT 96
[2023-12-02] MEDS: Magnesium Oxide 400 MG TABLET PO (19:05)
[2023-12-02 19:13] VITALS: BP 101/57; PULSE 79; RESP 18; TEMP 36.3; O2SAT 96
[2023-12-03 03:15] VITALS: BP 114/67; PULSE 81; RESP 16; TEMP 36.4; O2SAT 98
[2023-12-03] MEDS: Acetaminophen 325 MG TABLET 650 MG PO ×4 (03:32→22:00)
--- NOTE | 2023-12-03 04:41 | PC.NURSE ---
PATIENT NOTED AWAKE AND AMBULATING FREELY IN HER ROOM PER HER BASELINE FROM AT START OF THIS WRITERS SHIFT (2300). PLEASANTLY CONFUSED DURING ASSESSMENT ROUNDS. VSS, NO COMPLAINTS OF PAIN, VOIDING FINE IN THE BR AND LOOKING THROUGH HER BAGS AND SNACKS. REQUESTED AND GIVEN A DIANNE JEREMY. NOTED STILL AWAKE AND WATCHING TV AT 0030. CLOSE TO 0120 WAS ALERTED TO HAVE A PHONE CALL AT THE MAIN DESK AND IT WAS THE [employer], FEMALE, WHO STATED THAT THE PATIENT HAD JUST CALLED AND TOLD THEM THAT HER FRIEND HAD COME TO VISIT HER JUST A SHORT WHILE AGO AND HE WAS GOING THRU HER BAG AND TOOK HER EBT CARD AND LEFT ABRUPTLY. EXPLAINED TO THEM THAT THIS PATIENT HAS HAD NO RECENT VISITORS AND ACTUALLY HAS A VISITOR RESTRICTION AND SEEMS ONLY HER SISTER VISITS. THERE WAS DEFINITELY NO ONE VISITING FROM 2244 ONWARD. FURTHER EXPLAINED A LITTLE OF THE PATIENTS ROUTINE, HISTORY, AND PERSONALITY TO THE OFFICER ON THE LINE. TOLD HER I WOULD ALERT THE NURSING MEDICAL LEADER AND OUR SECURITY TO THE SITUATION AND CALL IF ANYTHING NEW DEVELOPED. BOTH THE NURSING MEDICAL LEADER AND [facility] SECURITY WERE UPDATED. THE PATIENTS ASSIGNED NURSE I THEN ENTERED HER ROOM AND CALMLY ASKED WHAT WAS GOING ON AND SHE PROCEEDED TO RELATE SAME WHAT SHE CONVERSED WITH ON THE PHONE TO [facility]. SPENT TIME HELPING HER LOOK FOR HER EBT CARD HOPING MAYBE IT WOULD TURN UP TO NO LUCK. WE THEN TALKED OF HER WELL BEING, THE ABILITY TO REPORT THIS, AND SUCH. TOLD HER I WOULD PASS ALONG AND HAVE BOTH HER DOCTOR AND THE BUSINESS OFFICE SPECIALIST VISIT HER IN HER ROOM IN THE MORNING TO FOLLOW UP. NOTED SHE STAYED AWAKE A LITTLE LONGER, STAYED IN HER ROOM, HAD A BEVERAGE AND TYLENOL, THEN ABLE TO NAP IN HER BED. WILL CONTINUE TO MONITOR CLOSELY.
--- NOTE | 2023-12-03 07:10 | P.PNIM_ITS ---
Subjective Subjective Date of Service: 12/03/23 Interval History: Seen and examined this morning Follow-up for placement, leg edema Continues to have leg edema Patient observed ambulating in room, wearing multiple michelle of pants, socks and compression socks all bunched up at ankle Review of Systems Review of Systems: Yes all other systems are reviewed and are negative Constitutional Constitutional: Denies fever(s) Physical Exam 2 Vital Signs: Vital Signs: Last Vital Signs Temp 97.5 F 12/03/23 03:15 Pulse 81 12/03/23 03:15 Resp 16 12/03/23 03:15 BP 114/67 12/03/23 03:15 Pulse Ox 98 12/03/23 03:15 O2 Del Method Room Air 12/03/23 03:15 O2 Flow Rate 3 10/05/23 16:00 BMI result Body Mass Index 22.7 Appearing in no acute distress neuro patient is alert Bilateral LE edema Objective Data Active Medications Acetaminophen (Acetaminophen 325 Mg Tablet) 650 mg PO Q6H PRN PRN Reason: Pain, Mild (Pain Scale 1-3) Last Admin: 12/03/23 03:32 Dose: 650 mg Documented By: SHAYY Al Hydroxide/Mg Hydroxide (Magnesium Hydrox/Alum Hydrox 30 Ml Oral.Susp) 30 ml PO Q6H PRN PRN Reason: GI Upset Last Admin: 11/19/23 19:16 Dose: 30 ml Documented By: LAMIN Benzocaine (Throat Lozenge, Medicated Lozenge) 1 lozenge MUCOUS MEM Q2H PRN PRN Reason: Sore Throat Benzonatate (Benzonatate 100 Mg Capsule) 100 mg PO TID PRN PRN Reason: Cough Buprenorphine/Naloxone (Buprenorphine/Naloxone 8/2 Mg Film) 1 film SUBLINGUAL BID [facility] Last Admin: 12/02/23 19:06 Dose: 1 film Documented By: CHRISTOFER Divalproex Sodium (Divalproex Sodium 250 Mg Tablet.) 250 mg PO TID [facility] Last Admin: 12/02/23 19:05 Dose: 250 mg Documented By: CHRISTOFER Docusate Sodium (Docusate Sodium 100 Mg Capsule) 100 mg PO DAILY PRN PRN Reason: Constipation Magnesium Oxide (Magnesium Oxide 400 Mg Tablet) 400 mg PO BEDTIME [facility] Last Admin: 12/02/23 19:05 Dose: 400 mg Documented By: CHRISTOFER Multivitamins/Vitamin C (Multivitamin Tablet) 1 tab PO DAILY [facility] Last Admin: 12/02/23 08:36 Dose: 1 tab Documented By: COTEMA Nicotine Polacrilex (Nicotine Polacrilex 2 Mg Gum) 4 mg BUCCAL Q2H PRN PRN Reason: nicotine addiction Last Admin: 12/02/23 23:30 Dose: 4 mg Documented By: SHAYY Olanzapine (Olanzapine 10 Mg Vial) 5 mg IM DAILY PRN PRN Reason: severe agitation Ondansetron HCl (Ondansetron Hcl 4 Mg/2 Ml Vial) 4 mg IVPUSH Q8H PRN PRN Reason: Nausea and Vomiting Ondansetron HCl (Ondansetron Odt 4 Mg Tab.Rapdis) 4 mg TRANSLINGU Q6H PRN PRN Reason: Nausea and Vomiting Last Admin: 12/01/23 23:36 Dose: 4 mg Documented By: JOE Risperidone (Risperidone 1 Mg Tablet) 1 mg PO BID [facility] Last Admin: 12/02/23 19:05 Dose: 1 mg Documented By: CHRISTOFER Labs 11/25/23 07:41 12/01/23 05:41 Assessment and Plan (1) Leg swelling: Status: Acute Plan Pt is a 48-year-old female with a PMH significant for opioid use disorder on Suboxone, alcohol use disorder, and Korsakoff's syndrome? who initially presented to the ED on?09/19/2023 looking for her Clement that she had not seen for a few days. Pt apparently had heard he was at this hospital so she called an ambulance to bring her here. deemed not to have capacity and was admitted to await guardianship and LTC placement. Alcohol Korsakoff's syndrome Continue Depakote and risperidone, may increase from 1 mg to 2 mg bid if needed Zyprexa 5 mg IM + Ativan 1 mg IM for breakthrough agitation labs 11/24 wnl leg swelling b/l dopller negative for DVT BNP 77, albumin normal, renal function, liver function normal. no respiratory symptoms keep legs elevated compression socks, has been declining to wear Opioid use disorder no withdrawal symptoms Continue Suboxone Full Code DVT ppx Pt ambulatory. Requires ongoing hospitalization for guardianship and safe placement, awaiting LTC Quality Stroke Does the patient have a stroke diagnosis?: No VTE Prior VTE?: No VTE Risk Level:: Medical - low VTE Device Contraindication: Treatment Not Indicated VTE Drug Contraindication: Treatment Not Indicated
[2023-12-03 07:31] VITALS: BP 115/58; PULSE 83; RESP 16; TEMP 36.6; O2SAT 97
[2023-12-03] MEDS: Nicotine Polacrilex 2 MG GUM 4 MG BUCCAL ×5 (08:56→22:25)
[2023-12-03] MEDS: risperiDONE 1 MG TABLET PO ×2 (08:56→22:00)
[2023-12-03] MEDS: Buprenorphine/Naloxone 8/2 mg FILM 1 FILM SUBLINGUAL ×2 (08:56→22:00)
[2023-12-03] MEDS: Divalproex Sodium 250 MG TABLET.DR PO ×3 (08:56→22:00)
[2023-12-03] MEDS: Multivitamin TABLET 1 TAB PO (08:56)
[2023-12-03 15:03] VITALS: BP 116/64; PULSE 93; RESP 18; TEMP 36.9; O2SAT 95
[2023-12-03 16:09] VITALS: BP 108/55; PULSE 85; RESP 20; TEMP 37.6; O2SAT 98
[2023-12-03 19:28] VITALS: BP 104/54; PULSE 84; RESP 18; TEMP 36.8; O2SAT 96
[2023-12-03] MEDS: Magnesium Oxide 400 MG TABLET PO (22:01)
[2023-12-04] MEDS: Nicotine Polacrilex 2 MG GUM 4 MG BUCCAL ×8 (00:52→23:26)
[2023-12-04 03:44] VITALS: BP 112/58; PULSE 88; RESP 16; TEMP 37.1; O2SAT 95
--- NOTE | 2023-12-04 07:47 | HO.PM.IMPN ---
Subjective Subjective Date of Service: 12/04/23 Interval History: Seen and examined this morning Follow-up for placement Continues to have leg edema Review of Systems Review of Systems: Yes all other systems are reviewed and are negative Constitutional Constitutional: Denies fever(s) Physical Exam Vital Signs: Vital Signs: Last Vital Signs Temp 98.7 F 12/04/23 03:44 Pulse 88 12/04/23 03:44 Resp 16 12/04/23 03:44 BP 112/58 L 12/04/23 03:44 Pulse Ox 95 12/04/23 03:44 O2 Del Method Room Air 12/04/23 03:44 O2 Flow Rate 3 10/05/23 16:00 BMI result Body Mass Index 22.7 Appearing in no acute distress alert mild bilat LE edema Objective Data Active Medications Acetaminophen (Acetaminophen 325 Mg Tablet) 650 mg PO Q6H PRN PRN Reason: Pain, Mild (Pain Scale 1-3) Last Admin: 12/03/23 22:00 Dose: 650 mg Documented By: EVERT Al Hydroxide/Mg Hydroxide (Magnesium Hydrox/Alum Hydrox 30 Ml Oral.Susp) 30 ml PO Q6H PRN PRN Reason: GI Upset Last Admin: 11/19/23 19:16 Dose: 30 ml Documented By: ODRISBaldo Benzocaine (Throat Lozenge, Medicated Lozenge) 1 lozenge MUCOUS MEM Q2H PRN PRN Reason: Sore Throat Benzonatate (Benzonatate 100 Mg Capsule) 100 mg PO TID PRN PRN Reason: Cough Buprenorphine/Naloxone (Buprenorphine/Naloxone 8/2 Mg Film) 1 film SUBLINGUAL BID [facility] Last Admin: 12/03/23 22:00 Dose: 1 film Documented By: EVERT Divalproex Sodium (Divalproex Sodium 250 Mg Tablet.Dr) 250 mg PO TID [facility] Last Admin: 12/03/23 22:00 Dose: 250 mg Documented By: EVERT Docusate Sodium (Docusate Sodium 100 Mg Capsule) 100 mg PO DAILY PRN PRN Reason: Constipation Magnesium Oxide (Magnesium Oxide 400 Mg Tablet) 400 mg PO BEDTIME [facility] Last Admin: 12/03/23 22:01 Dose: 400 mg Documented By: EVERT Multivitamins/Vitamin C (Multivitamin Tablet) 1 tab PO DAILY [facility] Last Admin: 12/03/23 08:56 Dose: 1 tab Documented By: RAFAEL Nicotine Polacrilex (Nicotine Polacrilex 2 Mg Gum) 4 mg BUCCAL Q2H PRN PRN Reason: nicotine addiction Last Admin: 12/04/23 03:12 Dose: 4 mg Documented By: EVERT Olanzapine (Olanzapine 10 Mg Vial) 5 mg IM DAILY PRN PRN Reason: severe agitation Ondansetron HCl (Ondansetron Hcl 4 Mg/2 Ml Vial) 4 mg IVPUSH Q8H PRN PRN Reason: Nausea and Vomiting Ondansetron HCl (Ondansetron Odt 4 Mg Tab.Rapdis) 4 mg TRANSLINGU Q6H PRN PRN Reason: Nausea and Vomiting Last Admin: 12/01/23 23:36 Dose: 4 mg Documented By: JOE Risperidone (Risperidone 1 Mg Tablet) 1 mg PO BID [facility] Last Admin: 12/03/23 22:00 Dose: 1 mg Documented By: EVERT Labs 12/04/23 10:41 12/04/23 10:41 Assessment and Plan (1) Leg swelling: Status: Acute Plan Pt is a 48-year-old female with a PMH significant for opioid use disorder on Suboxone, alcohol use disorder, and Korsakoff's syndrome? who initially presented to the ED on?09/19/2023 looking for her Clement that she had not seen for a few days. Pt apparently had heard he was at this hospital so she called an ambulance to bring her here. deemed not to have capacity and was admitted to await guardianship and LTC placement. Cough and congestion CXR negative RPP pending Hyponatremia Led edema BNP wnl check urine lytes and osmo, as wellas urine protein nephrology consultation Alcohol Korsakoff's syndrome Continue Depakote and risperidone, may increase from 1 mg to 2 mg bid if needed Zyprexa 5 mg IM + Ativan 1 mg IM for breakthrough agitation Labs 12/03 leg swelling b/l dopller negative for DVT BNP 77, albumin normal, renal function, liver function normal. no respiratory symptoms keep legs elevated compression socks, has been declining to wear Opioid use disorder no withdrawal symptoms Continue Suboxone Full Code Attending Dr. Hall DVT ppx Pt ambulatory. Requires ongoing hospitalization for guardianship and safe placement, awaiting LTC Quality Stroke Does the patient have a stroke diagnosis?: No VTE Prior VTE?: No VTE Risk Level:: Medical - low VTE Device Contraindication: Treatment Not Indicated VTE Drug Contraindication: Treatment Not Indicated
[2023-12-04 08:31] VITALS: BP 137/63; PULSE 92; RESP 18; TEMP 37.5; O2SAT 97
[2023-12-04] MEDS: Buprenorphine/Naloxone 8/2 mg FILM 1 FILM SUBLINGUAL ×2 (08:39→19:41)
[2023-12-04] MEDS: Multivitamin TABLET 1 TAB PO (08:39)
[2023-12-04] MEDS: Divalproex Sodium 250 MG TABLET.DR PO ×3 (08:39→19:41)
[2023-12-04] MEDS: risperiDONE 1 MG TABLET PO ×2 (08:39→19:41)
[2023-12-04] MEDS: Acetaminophen 325 MG TABLET 650 MG PO ×2 (09:39→18:35)
[2023-12-04 11:19] LABS: Hematocrit 30.1 % (37.0-47.0); Hemoglobin 10.5 g/dl (12.0-16.0); Mean Corpuscular HGB Conc 34.9 g/dl (31.0-35.0); Mean Corpuscular Hemoglobin 33.3 pg (27.0-33.0); Mean Corpuscular Volume 95.6 fL (80.0-98.0); Mean Platelet Volume 10.3 fL (9.4-12.3); Platelet Count 135 X10*3/uL (160-400); Red Blood Count 3.15 X10*6/uL (4.20-5.50); Red Cell Distribution Width 12.4 % (11.0-16.0); White Blood Count 6.7 X10*3/uL (4.8-10.8)
[2023-12-04 11:30] LABS: Anion Gap 13 (12-20); Blood Urea Nitrogen 3 mg/dL (9-16); Calcium 8.9 mg/dL (8.4-10.2); Carbon Dioxide 24 mmol/L (22-29); Chloride 97 mmol/L (96-108); Creatinine Clr Calc Pharmacy 75.5; Estimated Glomerular Filt Rate > 60; Glucose Random 119 mg/dL (60-115); Potassium 4.1 mmol/L (3.3-5.1); Sodium 130 mmol/L (135-145)
--- NOTE | 2023-12-04 12:11 | PC.NURSE ---
Pt complaining of sore throat, new non-productive cough and congestion noted upon assessment, Lungs clear to ausculatation, Pt denies SOB or chest pain, increase in temperature 99.5, Barbara Coffey [facility]LAKER made aware, CXR and resp pathogen panel ordered, Pt medicated with APAP per OCT.
[2023-12-04 14:04] LABS: Adenovirus PCR Not Detected (Not Detect.); Bordetella parapertussis PCR Not Detected (Not Detect.); Bordetella pertussis PCR Not Detected (Not Detect.); Chlamydia pneumoniae PCR Not Detected (Not Detect.); Coronavirus 229E PCR Not Detected (Not Detect.); Coronavirus HKU1 PCR Not Detected (Not Detect.); Coronavirus NL63 PCR Not Detected (Not Detect.); Coronavirus OC43 PCR Not Detected (Not Detect.); Human metapneumovirus PCR Detected (Not Detect.); Influenza A PCR Not Detected (Not Detect.); Influenza B PCR Not Detected (Not Detect.); Mycoplasma pneumoniae PCR Not Detected (Not Detect.); Parainfluenza 1 PCR Not Detected (Not Detect.); Parainfluenza 2 PCR Not Detected (Not Detect.); Parainfluenza 3 PCR Not Detected (Not Detect.); Parainfluenza 4 PCR Not Detected (Not Detect.); RSV PCR Not Detected (Not Detect.); Rhino/Enterovirus PCR Not Detected (Not Detect.)
[2023-12-04 14:08] LABS: SARS-CoV-2 PCR Not Detected (Not Detect.)
[2023-12-04 14:27] LABS: Appearance Urine Clear; Color Urine Yellow; Glucose Urine UA Negative (Negative); Leukocyte Esterase Urine Negative (Negative); Nitrite Urine Negative (Negative); Specific Gravity - Urine <= 1.005 (1.005-1.025); Urine Blood Negative (Negative); Urine Ketones Negative (Negative); Urine Protein Negative (Neg-Trace)
[2023-12-04 14:45] LABS: Osmolality Urine 85 mosm/kg (373-1093)
[2023-12-04 14:50] LABS: Sodium Urine Random < 20.0 mmol/L
[2023-12-04 15:04] VITALS: BP 123/61; PULSE 82; RESP 18; TEMP 37.4; O2SAT 94
[2023-12-04 19:08] LABS: Chloride Urine Random < 20.0 mmol/L
[2023-12-04] MEDS: Throat Lozenge, Medicated LOZENGE 1 LOZENGE MUCOUS MEM (19:40)
[2023-12-04] MEDS: Magnesium Oxide 400 MG TABLET PO (19:41)
[2023-12-04 19:54] VITALS: BP 104/55; PULSE 86; RESP 18; TEMP 36.1; O2SAT 96
[2023-12-05] MEDS: Acetaminophen 325 MG TABLET 650 MG PO ×3 (01:31→19:17)
[2023-12-05] MEDS: Nicotine Polacrilex 2 MG GUM 4 MG BUCCAL ×6 (01:32→22:52)
[2023-12-05 07:34] VITALS: BP 125/58; PULSE 82; RESP 18; TEMP 37.1; O2SAT 100
[2023-12-05] MEDS: Multivitamin TABLET 1 TAB PO (08:37)
[2023-12-05] MEDS: Buprenorphine/Naloxone 8/2 mg FILM 1 FILM SUBLINGUAL ×2 (08:37→19:23)
[2023-12-05] MEDS: risperiDONE 1 MG TABLET PO ×2 (08:37→19:19)
[2023-12-05] MEDS: Divalproex Sodium 250 MG TABLET.DR PO ×3 (08:37→19:18)
[2023-12-05 10:26] LABS: Anion Gap 11 (12-20); Blood Urea Nitrogen 5 mg/dL (9-16); Calcium 9.1 mg/dL (8.4-10.2); Carbon Dioxide 29 mmol/L (22-29); Chloride 101 mmol/L (96-108); Creatinine Clr Calc Pharmacy 81.4; Estimated Glomerular Filt Rate > 60; Glucose Random 83 mg/dL (60-115); Potassium 4.1 mmol/L (3.3-5.1); Sodium 137 mmol/L (135-145)
--- NOTE | 2023-12-05 13:17 | PM.CNNEP ---
History of Present Illness Reason for Consult Consult date: 12/05/23 Reason for consult: Hyponatremi and edema Chief Complaint Chief complaint: Awaiting guardianship History of Present Illness Narrative: 48-year-old female with a PMH significant for opioid use disorder on Suboxone, alcohol use disorder, and Korsakoff's syndrome Recently started on DEpakote She has mild hyponatremia DEveloped leg edema She admits to drinking plenty of water Review of Systems Constitutional: Denies fever(s) and Denies weight loss Cardiovascular: Denies chest pain Respiratory: Denies cough and Denies hemoptysis Gastrointestinal: Denies abdominal pain, Denies diarrhea and Denies nausea Musculoskeletal: Denies back pain Denies focal weakness [facility] Social History Social History Household Members: Spouse Unable to assess alcohol history related to: Unknown Comment: flight risk Patient Tobacco Use Status: Former Tobacco user Smoked in Last 30 Days: Yes Use of substances other than those prescribed or required for medical reasons: Yes Substance Use Type: IV Drugs and Opiates Currently Displaying Signs/Symptoms of Drug Intoxication Withdrawal: No Have you been hit, kicked, punched, or otherwise hurt by someone within the past year? If so, by whom?: No Do you feel safe in your current relationship?: No Is there a partner from a previous relationship who is making you feel unsafe now?: No Advance Directives: No Advance Directives Information Provided: Yes Healthcare Proxy: Yes (Sisters are HCP) Guardian: No Do you have thoughts of harming others: None Do you have a plan to hurt others: No Plan Recently lost weight without trying: No How much weight loss: Unsure Eating poorly because of decreased appetite: No Nutrition screen score: 2 Nutrition Risks: No Nutritional Risk Patient : No service: No Meds Allergies Allergy/AdvReac Type Severity Reaction Status Date / Time Penicillins [PENICILLINS] Allergy Mild HIVES Verified 09/19/23 16:35 Antihistamines - Alkylamine AdvReac Intermediate feels like Verified 09/19/23 16:35 [ANTIHISTAMINES - ALKYLAMINE] bugs are crawling on her hydroxyzine [From [facility]IST[facility]] AdvReac Intermediate feels like Verified 09/19/23 16:35 bugs are crawling on her GRASS Allergy Mild UNKNOWN Uncoded 06/21/23 11:12 Active Medications: Current Medications Acetaminophen (Acetaminophen 325 Mg Tablet) 650 mg PO Q6H PRN PRN Reason: Pain, Mild (Pain Scale 1-3) Last Admin: 12/05/23 01:31 Dose: 650 mg Al Hydroxide/Mg Hydroxide (Magnesium Hydrox/Alum Hydrox 30 Ml Oral.Susp) 30 ml PO Q6H PRN PRN Reason: GI Upset Last Admin: 11/19/23 19:16 Dose: 30 ml Benzocaine (Throat Lozenge, Medicated Lozenge) 1 lozenge MUCOUS MEM Q2H PRN PRN Reason: Sore Throat Last Admin: 12/04/23 19:40 Dose: 1 lozenge Benzonatate (Benzonatate 100 Mg Capsule) 100 mg PO TID PRN PRN Reason: Cough Buprenorphine/Naloxone (Buprenorphine/Naloxone 8/2 Mg Film) 1 film SUBLINGUAL BID [facility] Last Admin: 12/05/23 08:37 Dose: 1 film Divalproex Sodium (Divalproex Sodium 250 Mg Tablet.Dr) 250 mg PO TID [facility] Last Admin: 12/05/23 08:37 Dose: 250 mg Docusate Sodium (Docusate Sodium 100 Mg Capsule) 100 mg PO DAILY PRN PRN Reason: Constipation Magnesium Oxide (Magnesium Oxide 400 Mg Tablet) 400 mg PO BEDTIME [facility] Last Admin: 12/04/23 19:41 Dose: 400 mg Multivitamins/Vitamin C (Multivitamin Tablet) 1 tab PO DAILY [facility] Last Admin: 12/05/23 08:37 Dose: 1 tab Nicotine Polacrilex (Nicotine Polacrilex 2 Mg Gum) 4 mg BUCCAL Q2H PRN PRN Reason: nicotine addiction Last Admin: 12/05/23 08:37 Dose: 4 mg Olanzapine (Olanzapine 10 Mg Vial) 5 mg IM DAILY PRN PRN Reason: severe agitation Ondansetron HCl (Ondansetron Hcl 4 Mg/2 Ml Vial) 4 mg IVPUSH Q8H PRN PRN Reason: Nausea and Vomiting Ondansetron HCl (Ondansetron Odt 4 Mg Tab.Rapdis) 4 mg TRANSLINGU Q6H PRN PRN Reason: Nausea and Vomiting Last Admin: 12/01/23 23:36 Dose: 4 mg Risperidone (Risperidone 1 Mg Tablet) 1 mg PO BID [facility] Last Admin: 12/05/23 08:37 Dose: 1 mg Home Medications ?Medication ?Instructions ?Recorded ?Confirmed ?Last Taken ?Type quetiapine 100 mg tablet 100 mg PO BEDTIME 09/21/23 09/21/23 Unknown History vitamin B complex-folic acid 0.4 1 tab PO DAILY 09/21/23 09/21/23 Unknown History mg tablet Physical Exam Vital Signs: Last Vital Signs Temp 98.7 F 12/05/23 07:34 Pulse 82 12/05/23 07:34 Resp 18 12/05/23 07:34 BP 125/58 L 12/05/23 07:34 Pulse Ox 100 12/05/23 07:34 O2 Del Method Room Air 12/05/23 07:34 O2 Flow Rate 3 10/05/23 16:00 BMI result Body Mass Index 22.7 Neck Neck: Yes supple Resp Auscultation: clear to auscultation bilaterally Cardio Palpation: no palpable S3 Heart sounds: no rubs GI Palpation (GI): Soft to palpation Auscultation: normal bowel sounds Neuro Motor exam (neuro): no asterixis Extrem General: Yes edema (Trace) Results Lab Results 12/04/23 10:41 12/05/23 09:36 Lab results: Chemistry 12/04/23 12/05/23 10:41 09:36 Sodium 130 L 137 Potassium 4.1 4.1 Carbon Dioxide 24 29 BUN 3 L 5 L Creatinine 0.68 0.63 Calcium 8.9 9.1 Hematology 12/04/23 10:41 WBC 6.7 Hgb 10.5 L Plt Count 135 L Urinalysis 12/04/23 14:10 Urine Color Yellow Urine Appearance Clear Urine pH 7.0 Ur Specific [place] <= 1.005 Urine Protein Negative Urine Glucose (UA) Negative Urine Ketones Negative Urine Blood Negative Urine Nitrite Negative Ur Leukocyte Esterase Negative Urine Studies 12/04/23 14:10 Urine Osmolality 85 L Assessment and Plan (1) Leg swelling: Status: Acute Serum albumin is normal. Cardiac function does not seem compromise. Urinalysis did not reveal any significant amount of proteinuria. Leg edema may be secondary to medications. She has been consuming excessive amounts of water which could be contributing as well. Keep on low-sodium diet and limit fluid intake She may benefit from a low-dose of loop diuretic like Lasix 10 mg p.r.n. if swelling persists (2) Hyponatremia: Status: Acute Most likely due to excessive amount of free water intake. I would limit free water intake. I have discussed this with her and she is agreed. In the meantime check urine for sodium creatinine osmolality along with serum osmolality. Procedures Date of Service Date of Service: 12/05/23
[2023-12-05 16:00] VITALS: BP 101/56; PULSE 71; RESP 18; TEMP 36; O2SAT 94
[2023-12-05 16:15] VITALS: TEMP 37.1
--- NOTE | 2023-12-05 16:50 | P.PNIM_ITS ---
Subjective Subjective Date of Service: 12/05/23 Interval History: seen and examined this morning follow up for placement, leg swelling, hyponatremia no overnight events Review of Systems Review of Systems: Yes all other systems are reviewed and are negative Constitutional Constitutional: Denies chills and Denies fever(s) Cardiovascular Cardiovascular: Denies chest pain, Denies palpitations and Denies dyspnea Respiratory Respiratory: Denies cough and Denies dyspnea Endocrine Endocrine: Denies palpitations Physical Exam 2 Vital Signs: Vital Signs: Last Vital Signs Temp 98.7 F 12/05/23 16:15 Pulse 71 12/05/23 16:00 Resp 18 12/05/23 16:00 BP 101/56 L 12/05/23 16:00 Pulse Ox 94 12/05/23 16:00 O2 Del Method Room Air 12/05/23 16:00 O2 Flow Rate 3 10/05/23 16:00 BMI result Body Mass Index 22.7 Const: General: cooperative, comfortable, no acute distress, alert and awake Nutritional Appearance: average body habitus Resp: Effort & Inspection: normal respiratory effort, able to speak in complete sentences, no respiratory distress and no use of accessory muscles Cardio: Rate: regular rate Neuro: Other: ambulating in room, grossly nonfocal, moving all extremities General: moves all extremities Extrem: Other: would not let me evaluate her legs Objective Data Active Medications Acetaminophen (Acetaminophen 325 Mg Tablet) 650 mg PO Q6H PRN PRN Reason: Pain, Mild (Pain Scale 1-3) Last Admin: 12/05/23 13:31 Dose: 650 mg Documented By: JOSEPH Al Hydroxide/Mg Hydroxide (Magnesium Hydrox/Alum Hydrox 30 Ml Oral.Susp) 30 ml PO Q6H PRN PRN Reason: GI Upset Last Admin: 11/19/23 19:16 Dose: 30 ml Documented By: LAMIN Benzocaine (Throat Lozenge, Medicated Lozenge) 1 lozenge MUCOUS MEM Q2H PRN PRN Reason: Sore Throat Last Admin: 12/04/23 19:40 Dose: 1 lozenge Documented By: MAICO Benzonatate (Benzonatate 100 Mg Capsule) 100 mg PO TID PRN PRN Reason: Cough Buprenorphine/Naloxone (Buprenorphine/Naloxone 8/2 Mg Film) 1 film SUBLINGUAL BID [facility] Last Admin: 12/05/23 08:37 Dose: 1 film Documented By: OH Divalproex Sodium (Divalproex Sodium 250 Mg Tablet.Dr) 250 mg PO TID [facility] Last Admin: 12/05/23 14:47 Dose: 250 mg Documented By: OH Docusate Sodium (Docusate Sodium 100 Mg Capsule) 100 mg PO DAILY PRN PRN Reason: Constipation Magnesium Oxide (Magnesium Oxide 400 Mg Tablet) 400 mg PO BEDTIME [facility] Last Admin: 12/04/23 19:41 Dose: 400 mg Documented By: MAICO Multivitamins/Vitamin C (Multivitamin Tablet) 1 tab PO DAILY [facility] Last Admin: 12/05/23 08:37 Dose: 1 tab Documented By: OH Nicotine Polacrilex (Nicotine Polacrilex 2 Mg Gum) 4 mg BUCCAL Q2H PRN PRN Reason: nicotine addiction Last Admin: 12/05/23 15:50 Dose: 4 mg Documented By: OH Olanzapine (Olanzapine 10 Mg Vial) 5 mg IM DAILY PRN PRN Reason: severe agitation Ondansetron HCl (Ondansetron Hcl 4 Mg/2 Ml Vial) 4 mg IVPUSH Q8H PRN PRN Reason: Nausea and Vomiting Ondansetron HCl (Ondansetron Odt 4 Mg Tab.Rapdis) 4 mg TRANSLINGU Q6H PRN PRN Reason: Nausea and Vomiting Last Admin: 12/01/23 23:36 Dose: 4 mg Documented By: JOE Risperidone (Risperidone 1 Mg Tablet) 1 mg PO BID [facility] Last Admin: 12/05/23 08:37 Dose: 1 mg Documented By: OH Labs 12/04/23 10:41 12/05/23 09:36 Labs: Laboratory Results - last 24 hr 12/04/23 12/05/23 14:10 09:36 Hold Purple Top SEE NOTE Anion Gap 11 L Estim Creat Clear Calc 81.4 Estimated GFR > 60 Random Glucose 83 Calcium 9.1 Ur Random Chloride < 20.0 Assessment and Plan (1) Leg swelling: Status: Acute (2) Hyponatremia: Status: Acute Plan Pt is a 48-year-old female with a PMH significant for opioid use disorder on Suboxone, alcohol use disorder, and Korsakoff's syndrome? who initially presented to the ED on?09/19/2023 looking for her Clement that she had not seen for a few days. Pt apparently had heard he was at this hospital so she called an ambulance to bring her here. deemed not to have capacity and was admitted to await guardianship and LTC placement. Cough and congestion CXR negative RPP + for human metapneumovirus symptomtic care Hyponatremia Led edema BNP wnl sodium back to normal today nephrology following Alcohol Korsakoff's syndrome Continue Depakote and risperidone, may increase from 1 mg to 2 mg bid if needed Zyprexa 5 mg IM + Ativan 1 mg IM for breakthrough agitation Labs 12/03 leg swelling b/l Doppler negative for DVT BNP 77, albumin normal, renal function, liver function normal. no respiratory symptoms keep legs elevated compression socks, has been declining to wear seen by nephro ? due to increased po intake also possibly due to depakote Opioid use disorder no withdrawal symptoms Continue Suboxone Full Code Attending Dr. Hall DVT ppx Pt ambulatory. Requires ongoing hospitalization for guardianship and safe placement, awaiting LTC Quality Stroke Does the patient have a stroke diagnosis?: No VTE Prior VTE?: No VTE Risk Level:: Medical - low VTE Device Contraindication: Treatment Not Indicated VTE Drug Contraindication: Treatment Not Indicated
[2023-12-05] MEDS: Magnesium Oxide 400 MG TABLET PO (19:19)
[2023-12-05 19:40] VITALS: BP 104/68; PULSE 80; RESP 18; TEMP 37.2; O2SAT 96
[2023-12-06] MEDS: Nicotine Polacrilex 2 MG GUM 4 MG BUCCAL ×7 (01:01→23:02)
[2023-12-06] MEDS: Acetaminophen 325 MG TABLET 650 MG PO ×3 (01:09→23:00)
[2023-12-06 03:52] VITALS: BP 101/57; PULSE 74; RESP 16; TEMP 36.2; O2SAT 97
[2023-12-06 08:00] VITALS: BP 127/80; PULSE 75; RESP 12; TEMP 36.2; O2SAT 93
[2023-12-06] MEDS: Divalproex Sodium 250 MG TABLET.DR PO ×3 (08:29→20:12)
[2023-12-06] MEDS: Multivitamin TABLET 1 TAB PO (08:29)
[2023-12-06] MEDS: Buprenorphine/Naloxone 8/2 mg FILM 1 FILM SUBLINGUAL ×2 (08:29→20:12)
[2023-12-06] MEDS: risperiDONE 1 MG TABLET PO ×2 (08:29→20:12)
--- NOTE | 2023-12-06 10:52 | MHC.CM.PN ---
PT REMAINS AWAITING LTC PLACEMENT [facility] IS THE ONLY CLINICALLY ACCEPTING FACILITY, HOWEVER THEY STILL DO NOT HAVE A BED OPEN. REFERRAL HAS BEEN UPDATED
--- NOTE | 2023-12-06 13:54 | P.PNIM_ITS ---
Subjective Subjective Date of Service: 12/06/23 Interval History: seen and examined this morning follow up for placement, leg swelling no sob, swelling a little better no overnight events Review of Systems Review of Systems: Yes all other systems are reviewed and are negative Constitutional Constitutional: Denies chills and Denies fever(s) Cardiovascular Cardiovascular: Denies chest pain, Denies palpitations and Denies dyspnea Respiratory Respiratory: Denies dyspnea Gastrointestinal Gastrointestinal: Denies abdominal pain Endocrine Endocrine: Denies palpitations Physical Exam 2 Vital Signs: Vital Signs: Last Vital Signs Temp 97.2 F 12/06/23 08:00 Pulse 75 12/06/23 08:00 Resp 12 12/06/23 08:00 BP 127/80 12/06/23 08:00 Pulse Ox 93 12/06/23 08:00 O2 Del Method Room Air 12/06/23 08:00 O2 Flow Rate 3 10/05/23 16:00 BMI result Body Mass Index 22.7 Const: General: cooperative, comfortable, no acute distress, alert and awake Nutritional Appearance: average body habitus Resp: Effort & Inspection: normal respiratory effort, able to speak in complete sentences, no respiratory distress and no use of accessory muscles Cardio: Rate: regular rate GI: Inspection: No distended Palpation (GI): Soft to palpation Neuro: Other: ambulating in room, grossly nonfocal, moving all extremities General: moves all extremities Extrem: Other: LLE with mild edema, trace RLE General: Yes no pedal edema Objective Data Active Medications Acetaminophen (Acetaminophen 325 Mg Tablet) 650 mg PO Q6H PRN PRN Reason: Pain, Mild (Pain Scale 1-3) Last Admin: 12/06/23 08:29 Dose: 650 mg Documented By: MAR Al Hydroxide/Mg Hydroxide (Magnesium Hydrox/Alum Hydrox 30 Ml Oral.Susp) 30 ml PO Q6H PRN PRN Reason: GI Upset Last Admin: 11/19/23 19:16 Dose: 30 ml Documented By: LAMIN Benzocaine (Throat Lozenge, Medicated Lozenge) 1 lozenge MUCOUS MEM Q2H PRN PRN Reason: Sore Throat Last Admin: 12/04/23 19:40 Dose: 1 lozenge Documented By: MAICO Benzonatate (Benzonatate 100 Mg Capsule) 100 mg PO TID PRN PRN Reason: Cough Buprenorphine/Naloxone (Buprenorphine/Naloxone 8/2 Mg Film) 1 film SUBLINGUAL BID [facility] TO [facility] Last Admin: 12/06/23 08:29 Dose: 1 film Documented By: MAR Divalproex Sodium (Divalproex Sodium 250 Mg Tablet.Dr) 250 mg PO TID [facility] Last Admin: 12/06/23 08:29 Dose: 250 mg Documented By: MAR Docusate Sodium (Docusate Sodium 100 Mg Capsule) 100 mg PO DAILY PRN PRN Reason: Constipation Magnesium Oxide (Magnesium Oxide 400 Mg Tablet) 400 mg PO BEDTIME [facility] Last Admin: 12/05/23 19:19 Dose: 400 mg Documented By: MAICO Multivitamins/Vitamin C (Multivitamin Tablet) 1 tab PO DAILY [facility] Last Admin: 12/06/23 08:29 Dose: 1 tab Documented By: MAR Nicotine Polacrilex (Nicotine Polacrilex 2 Mg Gum) 4 mg BUCCAL Q2H PRN PRN Reason: nicotine addiction Last Admin: 12/06/23 08:29 Dose: 4 mg Documented By: MAR Olanzapine (Olanzapine 10 Mg Vial) 5 mg IM DAILY PRN PRN Reason: severe agitation Ondansetron HCl (Ondansetron Hcl 4 Mg/2 Ml Vial) 4 mg IVPUSH Q8H PRN PRN Reason: Nausea and Vomiting Ondansetron HCl (Ondansetron Odt 4 Mg Tab.Rapdis) 4 mg TRANSLINGU Q6H PRN PRN Reason: Nausea and Vomiting Last Admin: 12/01/23 23:36 Dose: 4 mg Documented By: JOE Risperidone (Risperidone 1 Mg Tablet) 1 mg PO BID [facility] Last Admin: 12/06/23 08:29 Dose: 1 mg Documented By: MAR Labs 12/04/23 10:41 12/05/23 09:36 Assessment and Plan (1) Leg swelling: Status: Acute Plan Pt is a 48-year-old female with a PMH significant for opioid use disorder on Suboxone, alcohol use disorder, and Korsakoff's syndrome? who initially presented to the ED on?09/19/2023 looking for her Clement that she had not seen for a few days. Pt apparently had heard he was at this hospital so she called an ambulance to bring her here. deemed not to have capacity and was admitted to await guardianship and LTC placement. Cough and congestion CXR negative RPP + for human metapneumovirus symptomatic care Hyponatremia resolved nephrology following Alcohol Korsakoff's syndrome Continue Depakote and risperidone, may increase from 1 mg to 2 mg bid if needed Zyprexa 5 mg IM + Ativan 1 mg IM for breakthrough agitation Labs /10 leg swelling b/l Doppler negative for DVT BNP 77, albumin normal, renal function, liver function normal. no respiratory symptoms keep legs elevated compression socks, has been declining to wear seen by nephro ? due to increased po intake Opioid use disorder no withdrawal symptoms Continue Suboxone Full Code Attending Dr. Hall DVT ppx Pt ambulatory. Requires ongoing hospitalization for guardianship and safe placement, awaiting LTC Quality Stroke Does the patient have a stroke diagnosis?: No VTE Prior VTE?: No VTE Risk Level:: Medical - low VTE Device Contraindication: Treatment Not Indicated VTE Drug Contraindication: Treatment Not Indicated
[2023-12-06 15:41] VITALS: BP 107/57; PULSE 72; RESP 18; TEMP 36.2; O2SAT 94
[2023-12-06 19:46] VITALS: BP 93/55; PULSE 69; RESP 20; TEMP 36.4; O2SAT 96
[2023-12-06] MEDS: Magnesium Oxide 400 MG TABLET PO (20:12)
[2023-12-07 03:43] VITALS: BP 109/57; PULSE 63; RESP 18; TEMP 36.2; O2SAT 94
[2023-12-07 06:58] VITALS: BP 105/54; PULSE 61; RESP 16; TEMP 36; O2SAT 96
--- NOTE | 2023-12-07 07:22 | P.PNIM_ITS ---
Subjective Subjective Date of Service: 12/07/23 Interval History: seen and examined this morning follow up for placement, leg swelling no sob, continues with ble. Refusing to elevate legs and refusing compression vague SI statement this morning- requesting we cut off her legs then asked for a knife to slit her throat. Then denies SI. Has camera in room. Apparently has made statements like before with out any intent no overnight events Review of Systems Review of Systems: Yes all other systems are reviewed and are negative Constitutional Constitutional: Denies chills and Denies fever(s) Cardiovascular Cardiovascular: Denies chest pain, Denies palpitations and Denies dyspnea Respiratory Respiratory: Denies dyspnea Gastrointestinal Gastrointestinal: Denies abdominal pain Endocrine Endocrine: Denies palpitations Physical Exam 2 Vital Signs: Vital Signs: Last Vital Signs Temp 96.8 F 12/07/23 06:58 Pulse 61 12/07/23 06:58 Resp 16 12/07/23 06:58 BP 105/54 L 12/07/23 06:58 Pulse Ox 96 12/07/23 06:58 O2 Del Method Room Air 12/07/23 06:58 O2 Flow Rate 3 10/05/23 16:00 BMI result Body Mass Index 22.7 Constitutional - Awake and Alert, No apparent distress Eyes - PERRLA, EOMI Cardiovascular - S1S2, RRR, 2+ ble edema Respiratory - Normal lung expansion, Normal respiratory effort, No respiratory distress, CTA bilaterally Gastrointestinal - NT / ND; +BS; No rebound or guarding Extremities - no calf tenderness bilaterally, no swelling Skin - Warm/Dry Neurological - Alert & oriented x3, CN II-XII in tact, 5/5 strength BUE and BLE Psychological - Flat affect. +vague SI statement, but denies SI when asked. See hpi Objective Data Active Medications Acetaminophen (Acetaminophen 325 Mg Tablet) 650 mg PO Q6H PRN PRN Reason: Pain, Mild (Pain Scale 1-3) Last Admin: 12/06/23 23:00 Dose: 650 mg Documented By: LAMIN Al Hydroxide/Mg Hydroxide (Magnesium Hydrox/Alum Hydrox 30 Ml Oral.Susp) 30 ml PO Q6H PRN PRN Reason: GI Upset Last Admin: 11/19/23 19:16 Dose: 30 ml Documented By: LAMIN Benzocaine (Throat Lozenge, Medicated Lozenge) 1 lozenge MUCOUS MEM Q2H PRN PRN Reason: Sore Throat Last Admin: 12/04/23 19:40 Dose: 1 lozenge Documented By: MAICO Benzonatate (Benzonatate 100 Mg Capsule) 100 mg PO TID PRN PRN Reason: Cough Buprenorphine/Naloxone (Buprenorphine/Naloxone 8/2 Mg Film) 1 film SUBLINGUAL BID [facility] Last Admin: 12/06/23 20:12 Dose: 1 film Documented By: LAMIN Divalproex Sodium (Divalproex Sodium 250 Mg Tablet.Dr) 250 mg PO TID [facility] Last Admin: 12/06/23 20:12 Dose: 250 mg Documented By: LAMIN Docusate Sodium (Docusate Sodium 100 Mg Capsule) 100 mg PO DAILY PRN PRN Reason: Constipation Magnesium Oxide (Magnesium Oxide 400 Mg Tablet) 400 mg PO BEDTIME [facility] Last Admin: 12/06/23 20:12 Dose: 400 mg Documented By: LAMIN Multivitamins/Vitamin C (Multivitamin Tablet) 1 tab PO DAILY [facility] Last Admin: 12/06/23 08:29 Dose: 1 tab Documented By: COTEMA Nicotine Polacrilex (Nicotine Polacrilex 2 Mg Gum) 4 mg BUCCAL Q2H PRN PRN Reason: nicotine addiction Last Admin: 12/06/23 23:02 Dose: 4 mg Documented By: LAMIN Olanzapine (Olanzapine 10 Mg Vial) 5 mg IM DAILY PRN PRN Reason: severe agitation Ondansetron HCl (Ondansetron Hcl 4 Mg/2 Ml Vial) 4 mg IVPUSH Q8H PRN PRN Reason: Nausea and Vomiting Ondansetron HCl (Ondansetron Odt 4 Mg Tab.Rapdis) 4 mg TRANSLINGU Q6H PRN PRN Reason: Nausea and Vomiting Last Admin: 12/01/23 23:36 Dose: 4 mg Documented By: JOE Risperidone (Risperidone 1 Mg Tablet) 1 mg PO BID [facility] Last Admin: 12/06/23 20:12 Dose: 1 mg Documented By: LAMIN Labs 12/04/23 10:41 12/05/23 09:36 Assessment and Plan (1) Leg swelling: Status: Acute (2) Alcoholic Korsakoff syndrome: Status: Acute (3) Hyponatremia: Status: Acute (4) URI (upper respiratory infection): Status: Acute Plan Pt is a 48-year-old female with a PMH significant for opioid use disorder on Suboxone, alcohol use disorder, and Korsakoff's syndrome? who initially presented to the ED on?09/19/2023 looking for her Clement that she had not seen for a few days. Pt apparently had heard he was at this hospital so she called an ambulance to bring her here. deemed not to have capacity and was admitted to await guardianship and LTC placement. Cough and congestion CXR negative RPP + for human metapneumovirus (12/03). Continue droplet/contact precautions symptomatic care Hyponatremia resolved 12/04. Recheck BMP now Per nephro, check urine/serum osmolality, urine creat and urine sodium fluid restrictions to 1.8L nephrology following Alcohol Korsakoff's syndrome Continue Depakote and risperidone, may increase from 1 mg to 2 mg bid if needed Zyprexa 5 mg IM + Ativan 1 mg IM for breakthrough agitation Labs 12/03 Vague SI statement has made statement in the past without any intention and has not acted. After statement made, denies SI when asked continue monitoring on camera Seen by psychiatry leg swelling b/l Doppler negative for DVT BNP 77, albumin normal, renal function, liver function normal. no respiratory symptoms Refusing leg elevation and compression socks seen by nephro ? due to increased po intake. Fluid restrictions to 1.8L. Consider lasix 10mg prn. Check BMP now Opioid use disorder no withdrawal symptoms Continue Suboxone Full Code DVT ppx Pt ambulatory. Requires ongoing hospitalization for guardianship and safe placement, awaiting LTC Quality Stroke Does the patient have a stroke diagnosis?: No VTE Prior VTE?: No VTE Risk Level:: Medical - low VTE Device Contraindication: Treatment Not Indicated VTE Drug Contraindication: Treatment Not Indicated
[2023-12-07] MEDS: Nicotine Polacrilex 2 MG GUM 4 MG BUCCAL ×4 (07:29→20:16)
[2023-12-07] MEDS: Buprenorphine/Naloxone 8/2 mg FILM 1 FILM SUBLINGUAL ×2 (08:32→20:12)
[2023-12-07] MEDS: risperiDONE 1 MG TABLET PO ×2 (08:32→20:12)
[2023-12-07] MEDS: Multivitamin TABLET 1 TAB PO (08:32)
[2023-12-07] MEDS: Divalproex Sodium 250 MG TABLET.DR PO ×3 (08:32→20:12)
[2023-12-07 11:03] LABS: Anion Gap 12 (12-20); Blood Urea Nitrogen 6 mg/dL (9-16); Calcium 9.2 mg/dL (8.4-10.2); Carbon Dioxide 26 mmol/L (22-29); Chloride 105 mmol/L (96-108); Estimated Glomerular Filt Rate > 60; Glucose Random 80 mg/dL (60-115); Potassium 4.4 mmol/L (3.3-5.1); Sodium 139 mmol/L (135-145)
[2023-12-07 11:06] LABS: Creatinine Urine 27.36 mg/dL
[2023-12-07 11:11] LABS: Osmolality, Serum 287 mosm/kg (281-305)
[2023-12-07 11:16] LABS: Osmolality Urine 183 mosm/kg (373-1093)
[2023-12-07 15:13] VITALS: BP 104/59; PULSE 56; RESP 16; TEMP 36.5; O2SAT 94
[2023-12-07 20:00] VITALS: BP 106/56; PULSE 77; RESP 20; TEMP 36.6; O2SAT 93
[2023-12-07] MEDS: Magnesium Oxide 400 MG TABLET PO (20:12)
[2023-12-08 03:46] VITALS: RESP 18
--- NOTE | 2023-12-08 03:56 | PC.NURSE ---
Addendum entered by Jenniffer Yousif RN 12/08/23 05:58: pt asleep during 4:00 am vitals, requested prior to falling asleep to not be disturbed. Rounded on patient at 04:00, rise and fall of chest (breathing) visualized. Original Note: pt a&o x3 but forgetful and needs frequent encouragement/reminders. calm, pleasant throughout the shift. encouraged to sleep, patient slept most of the night. requesting to have a razor, RN let the patient know that it can be reassessed during the day so that there may be somewhere there to assist with shaving for safety. patient agreeable. patient band replaced, previous band faded and unable to scan. patient refusing to wear compression stockings, education provided regarding the benefits of compression therapy, reinforcement needed, patient non-compliant to compression therapy. all needs met, call noriega within reach. safety and comfort maintained.
--- NOTE | 2023-12-08 07:03 | HO.PM.IMPN ---
Subjective Subjective Date of Service: 12/08/23 Interval History: seen and examined this morning follow up for placement, leg swelling no sob, continues with ble. Refusing to elevate legs and refusing compression no overnight events Review of Systems Review of Systems: Yes all other systems are reviewed and are negative Constitutional Constitutional: Denies chills and Denies fever(s) Cardiovascular Cardiovascular: Denies chest pain, Denies palpitations and Denies dyspnea Respiratory Respiratory: Denies dyspnea Gastrointestinal Gastrointestinal: Denies abdominal pain Endocrine Endocrine: Denies palpitations Physical Exam Vital Signs: Vital Signs: Last Vital Signs Temp 97.8 F 12/07/23 20:00 Pulse 77 12/07/23 20:00 Resp 18 12/08/23 03:46 BP 106/56 L 12/07/23 20:00 Pulse Ox 93 12/07/23 20:00 O2 Del Method Room Air 12/07/23 20:00 O2 Flow Rate 3 10/05/23 16:00 BMI result Body Mass Index 22.7 Constitutional - Awake and Alert, No apparent distress refuses exam Objective Data Active Medications Acetaminophen (Acetaminophen 325 Mg Tablet) 650 mg PO Q6H PRN PRN Reason: Pain, Mild (Pain Scale 1-3) Last Admin: 12/06/23 23:00 Dose: 650 mg Documented By: LAMIN Al Hydroxide/Mg Hydroxide (Magnesium Hydrox/Alum Hydrox 30 Ml Oral.Susp) 30 ml PO Q6H PRN PRN Reason: GI Upset Last Admin: 11/19/23 19:16 Dose: 30 ml Documented By: LAMIN Benzocaine (Throat Lozenge, Medicated Lozenge) 1 lozenge MUCOUS MEM Q2H PRN PRN Reason: Sore Throat Last Admin: 12/04/23 19:40 Dose: 1 lozenge Documented By: MAICO Benzonatate (Benzonatate 100 Mg Capsule) 100 mg PO TID PRN PRN Reason: Cough Buprenorphine/Naloxone (Buprenorphine/Naloxone 8/2 Mg Film) 1 film SUBLINGUAL BID [facility] Last Admin: 12/07/23 20:12 Dose: 1 film Documented By: BELLA Divalproex Sodium (Divalproex Sodium 250 Mg Tablet.Dr) 250 mg PO TID [facility] Last Admin: 12/07/23 20:12 Dose: 250 mg Documented By: BELLA Docusate Sodium (Docusate Sodium 100 Mg Capsule) 100 mg PO DAILY PRN PRN Reason: Constipation Magnesium Oxide (Magnesium Oxide 400 Mg Tablet) 400 mg PO BEDTIME [facility] Last Admin: 12/07/23 20:12 Dose: 400 mg Documented By: BELLA Multivitamins/Vitamin C (Multivitamin Tablet) 1 tab PO DAILY [facility] Last Admin: 12/07/23 08:32 Dose: 1 tab Documented By: KIERA Nicotine Polacrilex (Nicotine Polacrilex 2 Mg Gum) 4 mg BUCCAL Q2H PRN PRN Reason: nicotine addiction Last Admin: 12/07/23 20:16 Dose: 4 mg Documented By: BELLA Olanzapine (Olanzapine 10 Mg Vial) 5 mg IM DAILY PRN PRN Reason: severe agitation Ondansetron HCl (Ondansetron Hcl 4 Mg/2 Ml Vial) 4 mg IVPUSH Q8H PRN PRN Reason: Nausea and Vomiting Ondansetron HCl (Ondansetron Odt 4 Mg Tab.Rapdis) 4 mg TRANSLINGU Q6H PRN PRN Reason: Nausea and Vomiting Last Admin: 12/01/23 23:36 Dose: 4 mg Documented By: JOE Risperidone (Risperidone 1 Mg Tablet) 1 mg PO BID [facility] Last Admin: 12/07/23 20:12 Dose: 1 mg Documented By: BELLA Labs 12/04/23 10:41 12/07/23 10:36 Labs: Laboratory Results - last 24 hr 12/07/23 12/07/23 10:01 10:36 Anion Gap 12 Estim Creat Clear Calc 95.0 Estimated GFR > 60 Random Glucose 80 Osmolality 287 Calcium 9.2 Urine Osmolality 183 L Ur Random Sodium 39.0 Urine Creatinine 27.36 Assessment and Plan (1) Leg swelling: Status: Acute (2) Alcoholic Korsakoff syndrome: Status: Acute (3) Hyponatremia: Status: Acute (4) URI (upper respiratory infection): Status: Acute Plan Pt is a 48-year-old female with a PMH significant for opioid use disorder on Suboxone, alcohol use disorder, and Korsakoff's syndrome? who initially presented to the ED on?09/19/2023 looking for her Clement that she had not seen for a few days. Pt apparently had heard he was at this hospital so she called an ambulance to bring her here. deemed not to have capacity and was admitted to await guardianship and LTC placement. Cough and congestion CXR negative RPP + for human metapneumovirus (12/03). Continue droplet/contact precautions symptomatic care Hyponatremia resolved continue fluid restrictions 1.8 L per nephro Alcohol Korsakoff's syndrome Continue Depakote and risperidone, may increase from 1 mg to 2 mg bid if needed Zyprexa 5 mg IM + Ativan 1 mg IM for breakthrough agitation Vague SI statement 12/06 has made statement in the past without any intention and has not acted. After statement made, denies SI when asked continue monitoring on camera Seen by psychiatry leg swelling b/l Doppler negative for DVT BNP 77, albumin normal, renal function, liver function normal. no respiratory symptoms Refusing leg elevation and compression socks seen by nephro ? due to increased po intake. Fluid restrictions to 1.8L. Consider lasix 10mg prn. Check BMP now Opioid use disorder no withdrawal symptoms Continue Suboxone Full Code DVT ppx Pt ambulatory. Requires ongoing hospitalization for guardianship and safe placement, awaiting LTC Quality Stroke Does the patient have a stroke diagnosis?: No VTE Prior VTE?: No VTE Risk Level:: Medical - low VTE Device Contraindication: Treatment Not Indicated VTE Drug Contraindication: Treatment Not Indicated
[2023-12-08 08:00] VITALS: BP 106/55; PULSE 65; RESP 18; TEMP 36.1; O2SAT 94
[2023-12-08] MEDS: Buprenorphine/Naloxone 8/2 mg FILM 1 FILM SUBLINGUAL ×2 (08:29→20:11)
[2023-12-08] MEDS: risperiDONE 1 MG TABLET PO ×2 (08:29→20:11)
[2023-12-08] MEDS: Acetaminophen 325 MG TABLET 650 MG PO ×3 (08:29→20:11)
[2023-12-08] MEDS: Divalproex Sodium 250 MG TABLET.DR PO ×3 (08:30→20:11)
[2023-12-08] MEDS: Multivitamin TABLET 1 TAB PO (08:30)
[2023-12-08] MEDS: Nicotine Polacrilex 2 MG GUM 4 MG BUCCAL ×5 (08:30→20:11)
[2023-12-08 15:30] VITALS: BP 107/56; PULSE 67; RESP 18; TEMP 36.3; O2SAT 95
[2023-12-08 19:58] VITALS: BP 111/68; PULSE 61; RESP 16; TEMP 36.3; O2SAT 96
[2023-12-08] MEDS: Magnesium Oxide 400 MG TABLET PO (20:11)
[2023-12-09] MEDS: Nicotine Polacrilex 2 MG GUM 4 MG BUCCAL ×6 (00:34→21:08)
[2023-12-09] MEDS: Acetaminophen 325 MG TABLET 650 MG PO ×3 (02:01→21:08)
[2023-12-09 03:39] VITALS: BP 117/67; PULSE 50; RESP 16; TEMP 36.1; O2SAT 96
[2023-12-09 07:09] VITALS: BP 107/54; PULSE 58; RESP 16; TEMP 35.5; O2SAT 96
[2023-12-09 07:16] LABS: Anion Gap 12 (12-20); Blood Urea Nitrogen 7 mg/dL (9-16); Calcium 9.3 mg/dL (8.4-10.2); Carbon Dioxide 29 mmol/L (22-29); Chloride 102 mmol/L (96-108); Creatinine Clr Calc Pharmacy 82.8; Estimated Glomerular Filt Rate > 60; Glucose Random 75 mg/dL (60-115); Potassium 3.9 mmol/L (3.3-5.1); Sodium 139 mmol/L (135-145)
[2023-12-09] MEDS: risperiDONE 1 MG TABLET PO ×2 (08:01→21:08)
[2023-12-09] MEDS: Multivitamin TABLET 1 TAB PO (08:02)
[2023-12-09] MEDS: Divalproex Sodium 250 MG TABLET.DR PO ×3 (08:02→21:08)
[2023-12-09] MEDS: Buprenorphine/Naloxone 8/2 mg FILM 1 FILM SUBLINGUAL ×2 (08:30→21:08)
--- NOTE | 2023-12-09 09:13 | HO.PM.IMPN ---
Subjective Subjective Date of Service: 12/09/23 Interval History: Seen and examined this morning follow up for placement, leg swelling no sob, continues with ble. Refusing to elevate legs and refusing compression no significant nursing events overnight Review of Systems Denies chest pain Denies shortness of breath Denies nausea vomiting diarrhea Denies fever chills Constitutional Constitutional: Denies chills and Denies fever(s) Cardiovascular Cardiovascular: Denies chest pain, Denies palpitations and Denies dyspnea Respiratory Respiratory: Denies cough and Denies dyspnea Gastrointestinal Gastrointestinal: Denies abdominal pain Endocrine Endocrine: Denies palpitations Physical Exam Vital Signs: Vital Signs: Last Vital Signs Temp 96 F L 12/09/23 07:09 Pulse 58 12/09/23 07:09 Resp 16 12/09/23 07:09 BP 107/54 L 12/09/23 07:09 Pulse Ox 96 12/09/23 07:09 O2 Del Method Room Air 12/09/23 07:09 O2 Flow Rate 3 10/05/23 16:00 BMI result Body Mass Index 22.7 Const: Other: Awake alert confused General: cooperative, comfortable, no acute distress, alert and awake Nutritional Appearance: average body habitus Resp: Other: Clear to auscultation bilaterally no rales rhonchi or wheezes Effort & Inspection: normal respiratory effort, able to speak in complete sentences, no respiratory distress and no use of accessory muscles Cardio: Other: No S4; positive S1-S2; no S3 murmurs rubs or gallops Rate: regular rate GI: Other: Soft nontender nondistended normoactive bowel sounds Inspection: No distended Palpation (GI): Soft to palpation Neuro: Other: ambulating in room, grossly nonfocal, moving all extremities General: moves all extremities Extrem: Other: LLE with mild edema, trace RLE General: Yes no pedal edema Objective Data Active Medications Acetaminophen (Acetaminophen 325 Mg Tablet) 650 mg PO Q6H PRN PRN Reason: Pain, Mild (Pain Scale 1-3) Last Admin: 12/09/23 08:04 Dose: 650 mg Documented By: JOSEPH Al Hydroxide/Mg Hydroxide (Magnesium Hydrox/Alum Hydrox 30 Ml Oral.Susp) 30 ml PO Q6H PRN PRN Reason: GI Upset Last Admin: 11/19/23 19:16 Dose: 30 ml Documented By: LAMIN Benzocaine (Throat Lozenge, Medicated Lozenge) 1 lozenge MUCOUS MEM Q2H PRN PRN Reason: Sore Throat Last Admin: 12/04/23 19:40 Dose: 1 lozenge Documented By: MAICO Benzonatate (Benzonatate 100 Mg Capsule) 100 mg PO TID PRN PRN Reason: Cough Buprenorphine/Naloxone (Buprenorphine/Naloxone 8/2 Mg Film) 1 film SUBLINGUAL BID [facility] Last Admin: 12/09/23 08:30 Dose: 1 film Documented By: JOSEPH Divalproex Sodium (Divalproex Sodium 250 Mg Tablet.Dr) 250 mg PO TID [facility] Last Admin: 12/09/23 08:02 Dose: 250 mg Documented By: JOSEPH Docusate Sodium (Docusate Sodium 100 Mg Capsule) 100 mg PO DAILY PRN PRN Reason: Constipation Magnesium Oxide (Magnesium Oxide 400 Mg Tablet) 400 mg PO BEDTIME [facility] Last Admin: 12/08/23 20:11 Dose: 400 mg Documented By: ANNA Multivitamins/Vitamin C (Multivitamin Tablet) 1 tab PO DAILY [facility] Last Admin: 12/09/23 08:02 Dose: 1 tab Documented By: JOSEPH Nicotine Polacrilex (Nicotine Polacrilex 2 Mg Gum) 4 mg BUCCAL Q2H PRN PRN Reason: nicotine addiction Last Admin: 12/09/23 08:04 Dose: 4 mg Documented By: JOSEPH Olanzapine (Olanzapine 10 Mg Vial) 5 mg IM DAILY PRN PRN Reason: severe agitation Ondansetron HCl (Ondansetron Hcl 4 Mg/2 Ml Vial) 4 mg IVPUSH Q8H PRN PRN Reason: Nausea and Vomiting Ondansetron HCl (Ondansetron Odt 4 Mg Tab.Rapdis) 4 mg TRANSLINGU Q6H PRN PRN Reason: Nausea and Vomiting Last Admin: 12/01/23 23:36 Dose: 4 mg Documented By: JOE Risperidone (Risperidone 1 Mg Tablet) 1 mg PO BID [facility] Last Admin: 12/09/23 08:01 Dose: 1 mg Documented By: JOSEPH Labs 12/04/23 10:41 12/09/23 05:39 Labs: Laboratory Results - last 24 hr 12/09/23 05:39 Hold Purple Top SEE NOTE Anion Gap 12 Estim Creat Clear Calc 82.8 Estimated GFR > 60 Random Glucose 75 Calcium 9.3 Assessment and Plan (1) Alcoholic Korsakoff syndrome: Status: Acute Plan Pt is a 48-year-old female with a PMH significant for opioid use disorder on Suboxone, alcohol use disorder, and Korsakoff's syndrome? who initially presented to the ED on?09/19/2023 looking for her Clement that she had not seen for a few days. Pt apparently had heard he was at this hospital so she called an ambulance to bring her here. deemed not to have capacity and was admitted to await guardianship and LTC placement. Alcohol Korsakoff's syndrome Continue Depakote and risperidone, may increase from 1 mg to 2 mg bid if needed Zyprexa 5 mg IM + Ativan 1 mg IM for breakthrough agitation Vague SI statement 12/06 has made statement in the past without any intention and has not acted. After statement made, denies SI when asked continue monitoring on camera Seen by psychiatry leg swelling b/l Doppler negative for DVT BNP 77, albumin normal, renal function, liver function normal. no respiratory symptoms Refusing leg elevation and compression socks seen by nephro ? due to increased po intake. Fluid restrictions to 1.8L. Consider lasix 10mg prn. Check BMP now Cough and congestion CXR negative RPP + for human metapneumovirus (12/03). Continue droplet/contact precautions symptomatic care Hyponatremia resolved continue fluid restrictions 1.8 L per nephro Opioid use disorder no withdrawal symptoms Continue Suboxone Full Code DVT ppx Pt ambulatory. Requires ongoing hospitalization for guardianship and safe placement, awaiting LTC Quality Stroke Does the patient have a stroke diagnosis?: No VTE Prior VTE?: No VTE Risk Level:: Medical - low VTE Device Contraindication: Treatment Not Indicated VTE Drug Contraindication: Treatment Not Indicated
[2023-12-09 15:34] VITALS: BP 132/60; PULSE 64; RESP 18; TEMP 36.3; O2SAT 93
[2023-12-09 19:38] VITALS: BP 108/54; PULSE 65; RESP 18; TEMP 36.3; O2SAT 95
[2023-12-09] MEDS: Magnesium Oxide 400 MG TABLET PO (21:08)
[2023-12-10] MEDS: Nicotine Polacrilex 2 MG GUM 4 MG BUCCAL ×7 (00:18→23:01)
[2023-12-10 04:00] VITALS: BP 119/60; PULSE 69; RESP 16; TEMP 36.2; O2SAT 96
[2023-12-10] MEDS: Multivitamin TABLET 1 TAB PO (08:25)
[2023-12-10] MEDS: Throat Lozenge, Medicated LOZENGE 1 LOZENGE MUCOUS MEM (08:25)
[2023-12-10] MEDS: risperiDONE 1 MG TABLET PO ×2 (08:25→20:02)
[2023-12-10] MEDS: Divalproex Sodium 250 MG TABLET.DR PO ×3 (08:25→20:02)
[2023-12-10] MEDS: Acetaminophen 325 MG TABLET 650 MG PO ×2 (08:25→21:06)
[2023-12-10] MEDS: Buprenorphine/Naloxone 8/2 mg FILM 1 FILM SUBLINGUAL ×2 (08:25→20:02)
--- NOTE | 2023-12-10 10:28 | P.PNIM_ITS ---
Subjective Subjective Date of Service: 12/10/23 Interval History: Seen and examined this morning follow up for placement, leg swelling no sob, continues with ble. Refusing to elevate legs and refusing compression no significant nursing events overnight Review of Systems Denies chest pain Denies shortness of breath Denies nausea vomiting diarrhea Denies fever chills Constitutional Constitutional: Denies chills and Denies fever(s) Cardiovascular Cardiovascular: Denies chest pain, Denies palpitations and Denies dyspnea Respiratory Respiratory: Denies cough and Denies dyspnea Gastrointestinal Gastrointestinal: Denies abdominal pain Endocrine Endocrine: Denies palpitations Physical Exam 2 Vital Signs: Vital Signs: Last Vital Signs Temp 97.2 F 12/10/23 04:00 Pulse 69 12/10/23 04:00 Resp 16 12/10/23 04:00 BP 119/60 12/10/23 04:00 Pulse Ox 96 12/10/23 04:00 O2 Del Method Room Air 12/10/23 04:00 O2 Flow Rate 3 10/05/23 16:00 BMI result Body Mass Index 22.7 Const: Other: Awake alert confused General: cooperative, comfortable, no acute distress, alert and awake N utritional Appearance: average body habitus Resp: Other: Clear to auscultation bilaterally no rales rhonchi or wheezes Effort & Inspection: normal respiratory effort, able to speak in complete sentences, no respiratory distress and no use of accessory muscles Cardio: Other: No S4; positive S1-S2; no S3 murmurs rubs or gallops Rate: regular rate GI: Other: Soft nontender nondistended normoactive bowel sounds Inspection: No distended Palpation (GI): Soft to palpation Neuro: Other: ambulating in room, grossly nonfocal, moving all extremities General: moves all extremities Extrem: Other: LLE with mild edema, trace RLE General: Yes no pedal edema Objective Data Active Medications Acetaminophen (Acetaminophen 325 Mg Tablet) 650 mg PO Q6H PRN PRN Reason: Pain, Mild (Pain Scale 1-3) Last Admin: 12/10/23 08:25 Dose: 650 mg Documented By: CHAS Al Hydroxide/Mg Hydroxide (Magnesium Hydrox/Alum Hydrox 30 Ml Oral.Susp) 30 ml PO Q6H PRN PRN Reason: GI Upset Last Admin: 11/19/23 19:16 Dose: 30 ml Documented By: HO.ODRISM Benzocaine (Throat Lozenge, Medicated Lozenge) 1 lozenge MUCOUS MEM Q2H PRN PRN Reason: Sore Throat Last Admin: 12/10/23 08:25 Dose: 1 lozenge Documented By: CHAS Benzonatate (Benzonatate 100 Mg Capsule) 100 mg PO TID PRN PRN Reason: Cough Buprenorphine/Naloxone (Buprenorphine/Naloxone 8/2 Mg Film) 1 film SUBLINGUAL BID [facility] Last Admin: 12/10/23 08:25 Dose: 1 film Documented By: CHAS Divalproex Sodium (Divalproex Sodium 250 Mg Tablet.Dr) 250 mg PO TID [facility] Last Admin: 12/10/23 08:25 Dose: 250 mg Documented By: CHAS Docusate Sodium (Docusate Sodium 100 Mg Capsule) 100 mg PO DAILY PRN PRN Reason: Constipation Magnesium Oxide (Magnesium Oxide 400 Mg Tablet) 400 mg PO BEDTIME [facility] Last Admin: 12/09/23 21:08 Dose: 400 mg Documented By: TANK Multivitamins/Vitamin C (Multivitamin Tablet) 1 tab PO DAILY [facility] Last Admin: 12/10/23 08:25 Dose: 1 tab Documented By: CHAS Nicotine Polacrilex (Nicotine Polacrilex 2 Mg Gum) 4 mg BUCCAL Q2H PRN PRN Reason: nicotine addiction Last Admin: 12/10/23 08:25 Dose: 4 mg Documented By: CHAS Olanzapine (Olanzapine 10 Mg Vial) 5 mg IM DAILY PRN PRN Reason: severe agitation Ondansetron HCl (Ondansetron Hcl 4 Mg/2 Ml Vial) 4 mg IVPUSH Q8H PRN PRN Reason: Nausea and Vomiting Ondansetron HCl (Ondansetron Odt 4 Mg Tab.Rapdis) 4 mg TRANSLINGU Q6H PRN PRN Reason: Nausea and Vomiting Last Admin: 12/01/23 23:36 Dose: 4 mg Documented By: JOE Risperidone (Risperidone 1 Mg Tablet) 1 mg PO BID [facility] Last Admin: 12/10/23 08:25 Dose: 1 mg Documented By: CHAS Labs 12/04/23 10:41 12/09/23 05:39 Assessment and Plan (1) Alcoholic Korsakoff syndrome: Status: Acute Plan Pt is a 48-year-old female with a PMH significant for opioid use disorder on Suboxone, alcohol use disorder, and Korsakoff's syndrome? who initially presented to the ED on?09/19/2023 looking for her Clement that she had not seen for a few days. Pt apparently had heard he was at this hospital so she called an ambulance to bring her here. deemed not to have capacity and was admitted to await guardianship and LTC placement. Alcohol Korsakoff's syndrome Continue Depakote and risperidone, may increase from 1 mg to 2 mg bid if needed Zyprexa 5 mg IM + Ativan 1 mg IM for breakthrough agitation Vague SI statement 12/06 has made statement in the past without any intention and has not acted. After statement made, denies SI when asked continue monitoring on camera Seen by psychiatry leg swelling b/l Doppler negative for DVT BNP 77, albumin normal, renal function, liver function normal. no respiratory symptoms Refusing leg elevation and compression socks seen by nephro ? due to increased po intake. Fluid restrictions to 1.8L. Consider lasix 10mg prn. Check BMP now Cough and congestion CXR negative RPP + for human metapneumovirus (12/03). Continue droplet/contact precautions symptomatic care Hyponatremia resolved continue fluid restrictions 1.8 L per nephro Opioid use disorder no withdrawal symptoms Continue Suboxone Full Code DVT ppx Pt ambulatory. Requires ongoing hospitalization for guardianship and safe placement, awaiting LTC Quality Stroke Does the patient have a stroke diagnosis?: No VTE Prior VTE?: No VTE Risk Level:: Medical - low VTE Device Contraindication: Treatment Not Indicated VTE Drug Contraindication: Treatment Not Indicated
[2023-12-10] MEDS: Ibuprofen 600 MG TABLET PO (11:14)
--- NOTE | 2023-12-10 15:43 | PC.NURSE ---
Patient alert, oriented x2. Calm,cooperative. Took all meds as prescribed. Following fluid restriction orders. RAMANA stockings on per order.
[2023-12-10 15:49] VITALS: BP 112/60; PULSE 79; RESP 18; TEMP 36.1; O2SAT 93
--- NOTE | 2023-12-10 16:14 | MHC.CM.PN ---
Continued bed search for LTC placement. [facility] does not have a bed at this time. No other bed offers. [facility] were updated.
[2023-12-10 19:33] VITALS: BP 118/60; PULSE 65; RESP 16; TEMP 36.1; O2SAT 96
[2023-12-10] MEDS: Magnesium Oxide 400 MG TABLET PO (20:02)
[2023-12-11] MEDS: Acetaminophen 325 MG TABLET 650 MG PO (04:10)
[2023-12-11] MEDS: Nicotine Polacrilex 2 MG GUM 4 MG BUCCAL ×7 (04:11→23:48)
[2023-12-11 07:57] VITALS: BP 116/68; PULSE 65; RESP 16; TEMP 36.8; O2SAT 96
[2023-12-11] MEDS: Multivitamin TABLET 1 TAB PO (09:01)
[2023-12-11] MEDS: risperiDONE 1 MG TABLET PO ×2 (09:01→20:08)
[2023-12-11] MEDS: Divalproex Sodium 250 MG TABLET.DR PO ×3 (09:01→20:08)
[2023-12-11] MEDS: Buprenorphine/Naloxone 8/2 mg FILM 1 FILM SUBLINGUAL ×2 (09:01→20:07)
--- NOTE | 2023-12-11 14:06 | P.PNIM_ITS ---
Subjective Subjective Date of Service: 12/11/23 Interval History: No acute issues overnight. No behavioral problems Review of Systems Denies chest pain Denies shortness of breath Denies nausea vomiting diarrhea Denies fever chills Physical Exam 2 Vital Signs: Vital Signs: Last Vital Signs Temp 98.2 F 12/11/23 07:57 Pulse 65 12/11/23 07:57 Resp 16 12/11/23 07:57 BP 116/68 12/11/23 07:57 Pulse Ox 96 12/11/23 07:57 O2 Del Method Room Air 12/11/23 07:57 O2 Flow Rate 3 10/05/23 16:00 BMI result Body Mass Index 22.7 Const: Other: Awake alert confused Resp: Other: Clear to auscultation bilaterally no rales rhonchi or wheezes Cardio: Other: No S4; positive S1-S2; no S3 murmurs rubs or gallops GI: Other: Soft nontender nondistended normoactive bowel sounds Extrem: Other: No edema bilaterally Objective Data Active Medications Acetaminophen (Acetaminophen 325 Mg Tablet) 650 mg PO Q6H PRN PRN Reason: Pain, Mild (Pain Scale 1-3) Last Admin: 12/11/23 04:10 Dose: 650 mg Documented By: MAICO Al Hydroxide/Mg Hydroxide (Magnesium Hydrox/Alum Hydrox 30 Ml Oral.Susp) 30 ml PO Q6H PRN PRN Reason: GI Upset Last Admin: 11/19/23 19:16 Dose: 30 ml Documented By: LAMIN Benzocaine (Throat Lozenge, Medicated Lozenge) 1 lozenge MUCOUS MEM Q2H PRN PRN Reason: Sore Throat Last Admin: 12/10/23 08:25 Dose: 1 lozenge Documented By: CHAS Benzonatate (Benzonatate 100 Mg Capsule) 100 mg PO TID PRN PRN Reason: Cough Buprenorphine/Naloxone (Buprenorphine/Naloxone 8/2 Mg Film) 1 film SUBLINGUAL BID [facility] Last Admin: 12/11/23 09:01 Dose: 1 film Documented By: LUKAS Divalproex Sodium (Divalproex Sodium 250 Mg Tablet.Dr) 250 mg PO TID [facility] Last Admin: 12/11/23 09:01 Dose: 250 mg Documented By: LUKAS Docusate Sodium (Docusate Sodium 100 Mg Capsule) 100 mg PO DAILY PRN PRN Reason: Constipation Magnesium Oxide (Magnesium Oxide 400 Mg Tablet) 400 mg PO BEDTIME [facility] Last Admin: 12/10/23 20:02 Dose: 400 mg Documented By: REE Multivitamins/Vitamin C (Multivitamin Tablet) 1 tab PO DAILY [facility] Last Admin: 12/11/23 09:01 Dose: 1 tab Documented By: LUKAS Nicotine Polacrilex (Nicotine Polacrilex 2 Mg Gum) 4 mg BUCCAL Q2H PRN PRN Reason: nicotine addiction Last Admin: 12/11/23 14:02 Dose: 4 mg Documented By: LUKAS Olanzapine (Olanzapine 10 Mg Vial) 5 mg IM DAILY PRN PRN Reason: severe agitation Ondansetron HCl (Ondansetron Hcl 4 Mg/2 Ml Vial) 4 mg IVPUSH Q8H PRN PRN Reason: Nausea and Vomiting Ondansetron HCl (Ondansetron Odt 4 Mg Tab.Rapdis) 4 mg TRANSLINGU Q6H PRN PRN Reason: Nausea and Vomiting Last Admin: 12/01/23 23:36 Dose: 4 mg Documented By: JOE Risperidone (Risperidone 1 Mg Tablet) 1 mg PO BID [facility] Last Admin: 12/11/23 09:01 Dose: 1 mg Documented By: LUKAS Labs 12/04/23 10:41 12/09/23 05:39 Assessment and Plan (1) Alcoholic Korsakoff syndrome: Status: Acute Plan Pt is a 48-year-old female with a PMH significant for opioid use disorder on Suboxone, alcohol use disorder, and Korsakoff's syndrome? who initially presented to the ED on?09/19/2023 looking for her Clement that she had not seen for a few days. Pt apparently had heard he was at this hospital so she called an ambulance to bring her here. Pt will be admitted to the hospital while awaiting guardianship and LTC placement. Guardianship hearing is scheduled for 10/09/2023. 1.Alcohol Korsakoff's syndrome -Continue Seroquel, Depakote -continue to be without aggressive behavior 2.Opioid use disorder -Continue Suboxone Full Code Pt ambulatory. Pt will require a hospitalization pending guardianship and safe placement Quality Stroke Does the patient have a stroke diagnosis?: No VTE Prior VTE?: No VTE Risk Level:: Medical - low VTE Device Contraindication: Treatment Not Indicated VTE Drug Contraindication: Treatment Not Indicated
[2023-12-11 15:01] VITALS: BP 115/61; PULSE 64; RESP 16; TEMP 36.8; O2SAT 95
[2023-12-11 20:00] VITALS: BP 113/64; PULSE 63; RESP 18; TEMP 36.3; O2SAT 95
[2023-12-11] MEDS: Magnesium Oxide 400 MG TABLET PO (20:07)
[2023-12-12] MEDS: Acetaminophen 325 MG TABLET 650 MG PO (00:11)
[2023-12-12 03:08] VITALS: BP 112/56; PULSE 65; RESP 20; TEMP 36.7; O2SAT 93
[2023-12-12 06:52] VITALS: BP 117/59; PULSE 54; RESP 16; TEMP 36; O2SAT 95
[2023-12-12] MEDS: Divalproex Sodium 250 MG TABLET.DR PO ×3 (09:06→19:42)
[2023-12-12] MEDS: Multivitamin TABLET 1 TAB PO (09:06)
[2023-12-12] MEDS: risperiDONE 1 MG TABLET PO ×2 (09:06→19:42)
[2023-12-12] MEDS: Nicotine Polacrilex 2 MG GUM 4 MG BUCCAL ×3 (09:06→19:41)
[2023-12-12] MEDS: Buprenorphine/Naloxone 8/2 mg FILM 1 FILM SUBLINGUAL ×2 (09:06→19:41)
--- NOTE | 2023-12-12 13:51 | P.PNIM_ITS ---
Subjective Subjective Date of Service: 12/12/23 Interval History: No acute issues overnight Review of Systems Denies chest pain Denies shortness of breath Denies nausea vomiting diarrhea Denies fever chills Physical Exam 2 Vital Signs: Vital Signs: Last Vital Signs Temp 96.8 F 12/12/23 06:52 Pulse 54 12/12/23 06:52 Resp 16 12/12/23 06:52 BP 117/59 L 12/12/23 06:52 Pulse Ox 95 12/12/23 06:52 O2 Del Method Room Air 12/12/23 06:52 O2 Flow Rate 3 10/05/23 16:00 BMI result Body Mass Index 22.7 Const: Other: Awake alert confused Resp: Other: Clear to auscultation bilaterally no rales rhonchi or wheezes Cardio: Other: No S4; positive S1-S2; no S3 murmurs rubs or gallops GI: Other: Soft nontender nondistended normoactive bowel sounds Extrem: Other: No edema bilaterally Objective Data Active Medications Acetaminophen (Acetaminophen 325 Mg Tablet) 650 mg PO Q6H PRN PRN Reason: Pain, Mild (Pain Scale 1-3) Last Admin: 12/12/23 00:11 Dose: 650 mg Documented By: ANTOIC Al Hydroxide/Mg Hydroxide (Magnesium Hydrox/Alum Hydrox 30 Ml Oral.Susp) 30 ml PO Q6H PRN PRN Reason: GI Upset Last Admin: 11/19/23 19:16 Dose: 30 ml Documented By: LAMIN Benzocaine (Throat Lozenge, Medicated Lozenge) 1 lozenge MUCOUS MEM Q2H PRN PRN Reason: Sore Throat Last Admin: 12/10/23 08:25 Dose: 1 lozenge Documented By: CHAS Benzonatate (Benzonatate 100 Mg Capsule) 100 mg PO TID PRN PRN Reason: Cough Buprenorphine/Naloxone (Buprenorphine/Naloxone 8/2 Mg Film) 1 film SUBLINGUAL BID [facility] Last Admin: 12/12/23 09:06 Dose: 1 film Documented By: RAFAEL Divalproex Sodium (Divalproex Sodium 250 Mg Tablet.Dr) 250 mg PO TID [facility] Last Admin: 12/12/23 09:06 Dose: 250 mg Documented By: RAFAEL Docusate Sodium (Docusate Sodium 100 Mg Capsule) 100 mg PO DAILY PRN PRN Reason: Constipation Magnesium Oxide (Magnesium Oxide 400 Mg Tablet) 400 mg PO BEDTIME [facility] Last Admin: 12/11/23 20:07 Dose: 400 mg Documented By: REE Multivitamins/Vitamin C (Multivitamin Tablet) 1 tab PO DAILY [facility] Last Admin: 12/12/23 09:06 Dose: 1 tab Documented By: RAFAEL Nicotine Polacrilex (Nicotine Polacrilex 2 Mg Gum) 4 mg BUCCAL Q2H PRN PRN Reason: nicotine addiction Last Admin: 12/12/23 09:06 Dose: 4 mg Documented By: RAFAEL Olanzapine (Olanzapine 10 Mg Vial) 5 mg IM DAILY PRN PRN Reason: severe agitation Ondansetron HCl (Ondansetron Hcl 4 Mg/2 Ml Vial) 4 mg IVPUSH Q8H PRN PRN Reason: Nausea and Vomiting Ondansetron HCl (Ondansetron Odt 4 Mg Tab.Rapdis) 4 mg TRANSLINGU Q6H PRN PRN Reason: Nausea and Vomiting Last Admin: 12/01/23 23:36 Dose: 4 mg Documented By: JOE Risperidone (Risperidone 1 Mg Tablet) 1 mg PO BID [facility] Last Admin: 12/12/23 09:06 Dose: 1 mg Documented By: RAFAEL Labs 12/04/23 10:41 12/09/23 05:39 Assessment and Plan (1) Alcoholic Korsakoff syndrome: Status: Acute Plan Pt is a 48-year-old female with a PMH significant for opioid use disorder on Suboxone, alcohol use disorder, and Korsakoff's syndrome? who initially presented to the ED on?09/19/2023 looking for her Clement that she had not seen for a few days. Pt apparently had heard he was at this hospital so she called an ambulance to bring her here. Pt will be admitted to the hospital while awaiting guardianship and LTC placement. Guardianship hearing is scheduled for 10/09/2023. 1.Alcohol Korsakoff's syndrome -Continue Seroquel, Depakote -continue to be without aggressive behavior 2.Opioid use disorder -Continue Suboxone Full Code Pt ambulatory. Pt will require a hospitalization pending guardianship and safe placement Quality Stroke Does the patient have a stroke diagnosis?: No VTE Prior VTE?: No VTE Risk Level:: Medical - low VTE Device Contraindication: Treatment Not Indicated VTE Drug Contraindication: Treatment Not Indicated
[2023-12-12 15:23] VITALS: BP 105/51; PULSE 65; RESP 18; TEMP 36.6; O2SAT 95
[2023-12-12] MEDS: Magnesium Oxide 400 MG TABLET PO (19:42)
[2023-12-12 19:55] VITALS: BP 107/54; PULSE 69; RESP 20; TEMP 36.8; O2SAT 96
[2023-12-13] MEDS: Acetaminophen 325 MG TABLET 650 MG PO ×3 (00:21→19:37)
[2023-12-13] MEDS: Nicotine Polacrilex 2 MG GUM 4 MG BUCCAL ×7 (00:22→19:38)
[2023-12-13 03:06] VITALS: BP 95/60; PULSE 65; RESP 18; TEMP 36.8; O2SAT 93
[2023-12-13 07:23] VITALS: BP 94/57; PULSE 64; RESP 12; TEMP 36; O2SAT 94
[2023-12-13] MEDS: Divalproex Sodium 250 MG TABLET.DR PO ×3 (08:32→20:58)
[2023-12-13] MEDS: risperiDONE 1 MG TABLET PO ×2 (08:34→20:58)
[2023-12-13] MEDS: Multivitamin TABLET 1 TAB PO (08:34)
[2023-12-13] MEDS: Buprenorphine/Naloxone 8/2 mg FILM 1 FILM SUBLINGUAL ×2 (08:46→20:58)
--- NOTE | 2023-12-13 10:52 | MHC.CM.PN ---
Addendum entered by Jihan Butler RN 12/13/23 11:26: [facility] Admissions fax: [phone] Admissions phone: [phone] Addendum entered by Jihan Butler RN 12/13/23 11:25: Referral faxed to [facility]. Per admissions, they may have open beds and will review. Original Note: Continued search for LTC bed. No bed offers at this time.
--- NOTE | 2023-12-13 14:22 | HO.PM.IMPN ---
Subjective Subjective Date of Service: 12/13/23 Interval History: No acute medical or behavioral issues overnight Review of Systems Denies chest pain Denies shortness of breath Denies nausea vomiting diarrhea Denies fever chills Physical Exam Vital Signs: Vital Signs: Last Vital Signs Temp 96.8 F 12/13/23 07:23 Pulse 64 12/13/23 07:23 Resp 12 12/13/23 07:23 BP 94/57 L 12/13/23 07:23 Pulse Ox 94 12/13/23 07:23 O2 Del Method Room Air 12/13/23 07:23 O2 Flow Rate 3 10/05/23 16:00 BMI result Body Mass Index 22.7 Const: Other: Awake alert confused Resp: Other: Clear to auscultation bilaterally no rales rhonchi or wheezes Cardio: Other: No S4; positive S1-S2; no S3 murmurs rubs or gallops GI: Other: Soft nontender nondistended normoactive bowel sounds Extrem: Other: No edema bilaterally Objective Data Active Medications Acetaminophen (Acetaminophen 325 Mg Tablet) 650 mg PO Q6H PRN PRN Reason: Pain, Mild (Pain Scale 1-3) Last Admin: 12/13/23 12:23 Dose: 650 mg Documented By: CIPRIANO Al Hydroxide/Mg Hydroxide (Magnesium Hydrox/Alum Hydrox 30 Ml Oral.Susp) 30 ml PO Q6H PRN PRN Reason: GI Upset Last Admin: 11/19/23 19:16 Dose: 30 ml Documented By: LAMIN Benzocaine (Throat Lozenge, Medicated Lozenge) 1 lozenge MUCOUS MEM Q2H PRN PRN Reason: Sore Throat Last Admin: 12/10/23 08:25 Dose: 1 lozenge Documented By: CHAS Benzonatate (Benzonatate 100 Mg Capsule) 100 mg PO TID PRN PRN Reason: Cough Buprenorphine/Naloxone (Buprenorphine/Naloxone 8/2 Mg Film) 1 film SUBLINGUAL BID [facility] Last Admin: 12/13/23 08:46 Dose: 1 film Documented By: CIPRIANO Divalproex Sodium (Divalproex Sodium 250 Mg Tablet.Dr) 250 mg PO TID [facility] Last Admin: 12/13/23 08:32 Dose: 250 mg Documented By: CIPRIANO Docusate Sodium (Docusate Sodium 100 Mg Capsule) 100 mg PO DAILY PRN PRN Reason: Constipation Magnesium Oxide (Magnesium Oxide 400 Mg Tablet) 400 mg PO BEDTIME [facility] Last Admin: 12/12/23 19:42 Dose: 400 mg Documented By: REE Multivitamins/Vitamin C (Multivitamin Tablet) 1 tab PO DAILY [facility] Last Admin: 12/13/23 08:34 Dose: 1 tab Documented By: CIPRIANO Nicotine Polacrilex (Nicotine Polacrilex 2 Mg Gum) 4 mg BUCCAL Q2H PRN PRN Reason: nicotine addiction Last Admin: 12/13/23 12:24 Dose: 4 mg Documented By: CIPRIANO Olanzapine (Olanzapine 10 Mg Vial) 5 mg IM DAILY PRN PRN Reason: severe agitation Ondansetron HCl (Ondansetron Hcl 4 Mg/2 Ml Vial) 4 mg IVPUSH Q8H PRN PRN Reason: Nausea and Vomiting Ondansetron HCl (Ondansetron Odt 4 Mg Tab.Rapdis) 4 mg TRANSLINGU Q6H PRN PRN Reason: Nausea and Vomiting Last Admin: 12/01/23 23:36 Dose: 4 mg Documented By: JOE Risperidone (Risperidone 1 Mg Tablet) 1 mg PO BID [facility] Last Admin: 12/13/23 08:34 Dose: 1 mg Documented By: CIPRIANO Labs 12/04/23 10:41 12/09/23 05:39 Assessment and Plan (1) Alcoholic Korsakoff syndrome: Status: Acute Plan Pt is a 48-year-old female with a PMH significant for opioid use disorder on Suboxone, alcohol use disorder, and Korsakoff's syndrome? who initially presented to the ED on?09/19/2023 looking for her Clement that she had not seen for a few days. Pt apparently had heard he was at this hospital so she called an ambulance to bring her here. Pt will be admitted to the hospital while awaiting guardianship and LTC placement. Guardianship hearing is scheduled for 10/09/2023. 1.Alcohol Korsakoff's syndrome -Continue Seroquel, Depakote -continue to be without aggressive behavior 2.Opioid use disorder -Continue Suboxone Full Code Pt ambulatory. Pt will require a hospitalization pending guardianship and safe placement Quality Stroke Does the patient have a stroke diagnosis?: No VTE Prior VTE?: No VTE Risk Level:: Medical - low VTE Device Contraindication: Treatment Not Indicated VTE Drug Contraindication: Treatment Not Indicated
[2023-12-13 15:19] VITALS: BP 110/55; PULSE 60; RESP 20; TEMP 36.3; O2SAT 93
[2023-12-13 19:49] VITALS: BP 112/57; PULSE 66; RESP 16; TEMP 36.4; O2SAT 97
[2023-12-13] MEDS: Magnesium Oxide 400 MG TABLET PO (20:58)
[2023-12-14] MEDS: Nicotine Polacrilex 2 MG GUM 4 MG BUCCAL ×7 (01:51→21:14)
[2023-12-14] MEDS: Acetaminophen 325 MG TABLET 650 MG PO (01:51)
[2023-12-14 03:21] VITALS: BP 111/60; PULSE 68; RESP 16; TEMP 36.3; O2SAT 97
[2023-12-14] MEDS: risperiDONE 2 MG TABLET PO (04:05)
[2023-12-14 07:19] VITALS: BP 119/61; PULSE 67; RESP 18; TEMP 36.2; O2SAT 97
[2023-12-14] MEDS: Divalproex Sodium 250 MG TABLET.DR PO ×3 (08:33→21:08)
[2023-12-14] MEDS: Multivitamin TABLET 1 TAB PO (08:33)
[2023-12-14] MEDS: Buprenorphine/Naloxone 8/2 mg FILM 1 FILM SUBLINGUAL ×2 (08:33→21:08)
[2023-12-14] MEDS: risperiDONE 1 MG TABLET PO ×2 (08:33→21:08)
--- NOTE | 2023-12-14 13:51 | HO.PM.IMPN ---
Subjective Subjective Date of Service: 12/14/23 Interval History: No acute issues overnight. Behavior baseline Review of Systems Denies chest pain Denies shortness of breath Denies nausea vomiting diarrhea Denies fever chills Physical Exam Vital Signs: Vital Signs: Last Vital Signs Temp 97.1 F 12/14/23 07:19 Pulse 67 12/14/23 07:19 Resp 18 12/14/23 07:19 BP 119/61 12/14/23 07:19 Pulse Ox 97 12/14/23 07:19 O2 Del Method Room Air 12/14/23 07:19 O2 Flow Rate 3 10/05/23 16:00 BMI result Body Mass Index 22.7 Const: Other: Awake alert confused Resp: Other: Clear to auscultation bilaterally no rales rhonchi or wheezes Cardio: Other: No S4; positive S1-S2; no S3 murmurs rubs or gallops GI: Other: Soft nontender nondistended normoactive bowel sounds Extrem: Other: No edema bilaterally Objective Data Active Medications Acetaminophen (Acetaminophen 325 Mg Tablet) 650 mg PO Q6H PRN PRN Reason: Pain, Mild (Pain Scale 1-3) Last Admin: 12/14/23 01:51 Dose: 650 mg Documented By: LETI Al Hydroxide/Mg Hydroxide (Magnesium Hydrox/Alum Hydrox 30 Ml Oral.Susp) 30 ml PO Q6H PRN PRN Reason: GI Upset Last Admin: 11/19/23 19:16 Dose: 30 ml Documented By: LAMIN Benzocaine (Throat Lozenge, Medicated Lozenge) 1 lozenge MUCOUS MEM Q2H PRN PRN Reason: Sore Throat Last Admin: 12/10/23 08:25 Dose: 1 lozenge Documented By: CHAS Benzonatate (Benzonatate 100 Mg Capsule) 100 mg PO TID PRN PRN Reason: Cough Buprenorphine/Naloxone (Buprenorphine/Naloxone 8/2 Mg Film) 1 film SUBLINGUAL BID [facility] Last Admin: 12/14/23 08:33 Dose: 1 film Documented By: OH Divalproex Sodium (Divalproex Sodium 250 Mg Tablet.Dr) 250 mg PO TID [facility] Last Admin: 12/14/23 08:33 Dose: 250 mg Documented By: OH Docusate Sodium (Docusate Sodium 100 Mg Capsule) 100 mg PO DAILY PRN PRN Reason: Constipation Magnesium Oxide (Magnesium Oxide 400 Mg Tablet) 400 mg PO BEDTIME [facility] Last Admin: 12/13/23 20:58 Dose: 400 mg Documented By: LETI Multivitamins/Vitamin C (Multivitamin Tablet) 1 tab PO DAILY [facility] Last Admin: 12/14/23 08:33 Dose: 1 tab Documented By: OH Nicotine Polacrilex (Nicotine Polacrilex 2 Mg Gum) 4 mg BUCCAL Q2H PRN PRN Reason: nicotine addiction Last Admin: 12/14/23 11:46 Dose: 4 mg Documented By: KVNG Olanzapine (Olanzapine 10 Mg Vial) 5 mg IM DAILY PRN PRN Reason: severe agitation Ondansetron HCl (Ondansetron Hcl 4 Mg/2 Ml Vial) 4 mg IVPUSH Q8H PRN PRN Reason: Nausea and Vomiting Ondansetron HCl (Ondansetron Odt 4 Mg Tab.Rapdis) 4 mg TRANSLINGU Q6H PRN PRN Reason: Nausea and Vomiting Last Admin: 12/01/23 23:36 Dose: 4 mg Documented By: JOE Risperidone (Risperidone 1 Mg Tablet) 1 mg PO BID [facility] Last Admin: 12/14/23 08:33 Dose: 1 mg Documented By: HO Labs 12/04/23 10:41 12/09/23 05:39 Assessment and Plan (1) Alcoholic Korsakoff syndrome: Status: Acute Plan Pt is a 48-year-old female with a PMH significant for opioid use disorder on Suboxone, alcohol use disorder, and Korsakoff's syndrome? who initially presented to the ED on?09/19/2023 looking for her Clement that she had not seen for a few days. Pt apparently had heard he was at this hospital so she called an ambulance to bring her here. Pt will be admitted to the hospital while awaiting guardianship and LTC placement. Guardianship hearing is scheduled for 10/09/2023. 1.Alcohol Korsakoff's syndrome -Continue Seroquel, Depakote -continue to be without aggressive behavior 2.Opioid use disorder -Continue Suboxone Full Code Pt ambulatory. Pt will require a hospitalization pending guardianship and safe placement Quality Stroke Does the patient have a stroke diagnosis?: No VTE Prior VTE?: No VTE Risk Level:: Medical - low VTE Device Contraindication: Treatment Not Indicated VTE Drug Contraindication: Treatment Not Indicated
[2023-12-14 14:58] VITALS: BP 95/54; PULSE 64; RESP 16; TEMP 36.4; O2SAT 97
[2023-12-14 19:33] VITALS: BP 101/56; PULSE 65; RESP 16; TEMP 36.7; O2SAT 94
[2023-12-14] MEDS: Magnesium Oxide 400 MG TABLET PO (21:08)
[2023-12-15 03:42] VITALS: BP 98/60; PULSE 64; RESP 16; TEMP 37.1; O2SAT 94
[2023-12-15 07:27] VITALS: BP 108/63; PULSE 80; RESP 18; TEMP 37.1; O2SAT 97
[2023-12-15] MEDS: Nicotine Polacrilex 2 MG GUM 4 MG BUCCAL ×7 (07:47→22:33)
[2023-12-15] MEDS: Acetaminophen 325 MG TABLET 650 MG PO ×2 (08:30→21:08)
[2023-12-15] MEDS: risperiDONE 1 MG TABLET PO ×2 (08:30→20:35)
[2023-12-15] MEDS: Buprenorphine/Naloxone 8/2 mg FILM 1 FILM SUBLINGUAL ×2 (08:30→20:35)
[2023-12-15] MEDS: Divalproex Sodium 250 MG TABLET.DR PO ×3 (08:31→20:35)
[2023-12-15] MEDS: Multivitamin TABLET 1 TAB PO (08:31)
--- NOTE | 2023-12-15 14:16 | HO.PM.IMPN ---
Subjective Subjective Date of Service: 12/15/23 Interval History: No acute issues overnight. Behavior baseline Review of Systems Denies chest pain Denies shortness of breath Denies nausea vomiting diarrhea Denies fever chills Physical Exam Vital Signs: Vital Signs: Last Vital Signs Temp 98.7 F 12/15/23 07:27 Pulse 80 12/15/23 07:27 Resp 18 12/15/23 07:27 BP 108/63 12/15/23 07:27 Pulse Ox 97 12/15/23 07:27 O2 Del Method Room Air 12/15/23 07:27 O2 Flow Rate 3 10/05/23 16:00 BMI result Body Mass Index 22.7 Const: Other: Awake alert confused Resp: Other: Clear to auscultation bilaterally no rales rhonchi or wheezes Cardio: Other: No S4; positive S1-S2; no S3 murmurs rubs or gallops GI: Other: Soft nontender nondistended normoactive bowel sounds Extrem: Other: No edema bilaterally Objective Data Active Medications Acetaminophen (Acetaminophen 325 Mg Tablet) 650 mg PO Q6H PRN PRN Reason: Pain, Mild (Pain Scale 1-3) Last Admin: 12/15/23 08:30 Dose: 650 mg Documented By: OH Al Hydroxide/Mg Hydroxide (Magnesium Hydrox/Alum Hydrox 30 Ml Oral.Susp) 30 ml PO Q6H PRN PRN Reason: GI Upset Last Admin: 11/19/23 19:16 Dose: 30 ml Documented By: LAMIN Benzocaine (Throat Lozenge, Medicated Lozenge) 1 lozenge MUCOUS MEM Q2H PRN PRN Reason: Sore Throat Last Admin: 12/10/23 08:25 Dose: 1 lozenge Documented By: CHAS Benzonatate (Benzonatate 100 Mg Capsule) 100 mg PO TID PRN PRN Reason: Cough Buprenorphine/Naloxone (Buprenorphine/Naloxone 8/2 Mg Film) 1 film SUBLINGUAL BID [facility] Last Admin: 12/15/23 08:30 Dose: 1 film Documented By: OH Divalproex Sodium (Divalproex Sodium 250 Mg Tablet.Dr) 250 mg PO TID [facility] Last Admin: 12/15/23 14:08 Dose: 250 mg Documented By: OH Docusate Sodium (Docusate Sodium 100 Mg Capsule) 100 mg PO DAILY PRN PRN Reason: Constipation Magnesium Oxide (Magnesium Oxide 400 Mg Tablet) 400 mg PO BEDTIME [facility] Last Admin: 12/14/23 21:08 Dose: 400 mg Documented By: CASTILM Multivitamins/Vitamin C (Multivitamin Tablet) 1 tab PO DAILY [facility] Last Admin: 12/15/23 08:31 Dose: 1 tab Documented By: OH Nicotine Polacrilex (Nicotine Polacrilex 2 Mg Gum) 4 mg BUCCAL Q2H PRN PRN Reason: nicotine addiction Last Admin: 12/15/23 12:29 Dose: 4 mg Documented By: OH Olanzapine (Olanzapine 10 Mg Vial) 5 mg IM DAILY PRN PRN Reason: severe agitation Ondansetron HCl (Ondansetron Hcl 4 Mg/2 Ml Vial) 4 mg IVPUSH Q8H PRN PRN Reason: Nausea and Vomiting Ondansetron HCl (Ondansetron Odt 4 Mg Tab.Rapdis) 4 mg TRANSLINGU Q6H PRN PRN Reason: Nausea and Vomiting Last Admin: 12/01/23 23:36 Dose: 4 mg Documented By: JOE Risperidone (Risperidone 1 Mg Tablet) 1 mg PO BID [facility] Last Admin: 12/15/23 08:30 Dose: 1 mg Documented By: OH Labs 12/04/23 10:41 12/09/23 05:39 Assessment and Plan (1) Alcoholic Korsakoff syndrome: Status: Acute Plan Pt is a 48-year-old female with a PMH significant for opioid use disorder on Suboxone, alcohol use disorder, and Korsakoff's syndrome? who initially presented to the ED on?09/19/2023 looking for her Clement that she had not seen for a few days. Pt apparently had heard he was at this hospital so she called an ambulance to bring her here. Pt will be admitted to the hospital while awaiting guardianship and LTC placement. Guardianship hearing is scheduled for 10/09/2023. 1.Alcohol Korsakoff's syndrome -Continue Seroquel, Depakote -continue to be without aggressive behavior 2.Opioid use disorder -Continue Suboxone Full Code Pt ambulatory. Pt will require a hospitalization pending guardianship and safe placement Quality Stroke Does the patient have a stroke diagnosis?: No VTE Prior VTE?: No VTE Risk Level:: Medical - low VTE Device Contraindication: Treatment Not Indicated VTE Drug Contraindication: Treatment Not Indicated
[2023-12-15 15:13] VITALS: BP 101/59; PULSE 69; RESP 18; TEMP 36.6; O2SAT 93
[2023-12-15 19:19] VITALS: BP 112/60; PULSE 72; RESP 18; TEMP 36.4; O2SAT 96
[2023-12-15] MEDS: Magnesium Oxide 400 MG TABLET PO (20:35)
[2023-12-16] MEDS: Nicotine Polacrilex 2 MG GUM 4 MG BUCCAL ×5 (00:56→14:20)
[2023-12-16 03:28] VITALS: BP 113/60; PULSE 59; RESP 18; TEMP 36.3; O2SAT 97
[2023-12-16] MEDS: Acetaminophen 325 MG TABLET 650 MG PO ×2 (04:28→11:45)
[2023-12-16 07:03] VITALS: BP 107/59; PULSE 56; RESP 18; TEMP 36.3; O2SAT 92
[2023-12-16] MEDS: Multivitamin TABLET 1 TAB PO (08:22)
[2023-12-16] MEDS: Divalproex Sodium 250 MG TABLET.DR PO ×3 (08:22→20:14)
[2023-12-16] MEDS: Buprenorphine/Naloxone 8/2 mg FILM 1 FILM SUBLINGUAL ×2 (08:22→20:14)
[2023-12-16] MEDS: risperiDONE 1 MG TABLET PO ×2 (08:22→20:14)
--- NOTE | 2023-12-16 11:37 | MHC.CM.PN ---
Addendum entered by Jihan Butler RN 12/16/23 12:36: LM at [facility] for Leanne [place] [phone] Addendum entered by Jihan Butler RN 12/16/23 12:31: CM met with guardian/sister Conchis and patient at bedside. Conchis reports she would like to plan to bring Bud home, and serve as caregiver. Conchis reports previous caregiver, Clement, would not be allowed to visit with patient. Requesting a few days time to make arrangements. CM director aware. CM LM for Leanne at [facility] to review dc plan. [phone] Original Note: Continued LTC bed search. No offers at this time. Awaiting response from [facility].
--- NOTE | 2023-12-16 13:22 | PC.NURSE ---
At approx 11:45am, camera watcher called [facility] and talked to Radha GARLAND and told her that Pt in room 363 was passed something from her sister. Camera watcher stated that patient then pulled her pants down and inserted something vaginally. Female security was called and came up to room. Female security searched room and had pt empty her pockets. Nothing was found and pt denied allegations. M.Rosario. and manager critical care unit notified via tiger text.
--- NOTE | 2023-12-16 14:47 | HO.PM.IMPN ---
Subjective Subjective Date of Service: 12/16/23 Interval History: Being followed for placement Offers no acute complaints. No acute issues overnight Review of Systems All other system reviewed and negative. Physical Exam Vital Signs: Vital Signs: Last Vital Signs Temp 97.3 F 12/16/23 07:03 Pulse 56 12/16/23 07:03 Resp 18 12/16/23 07:03 BP 107/59 L 12/16/23 07:03 Pulse Ox 92 12/16/23 07:03 O2 Del Method Room Air 12/16/23 07:03 O2 Flow Rate 3 10/05/23 16:00 BMI result Body Mass Index 22.7 Const: Other: General awake alert, in no acute distress. Neck supple no JVD. CVS regular rate rhythm, Respiratory lungs clear to auscultation, no respiratory distress, no wheeze, no rhonchi. Gastrointestinal abdomen soft, non tender, bowel sounds audible Extremities no edema. Neuro speech clear, no focal weakness. Poor insight Objective Data Active Medications Acetaminophen (Acetaminophen 325 Mg Tablet) 650 mg PO Q6H PRN PRN Reason: Pain, Mild (Pain Scale 1-3) Last Admin: 12/16/23 11:45 Dose: 650 mg Documented By: ASIF Al Hydroxide/Mg Hydroxide (Magnesium Hydrox/Alum Hydrox 30 Ml Oral.Susp) 30 ml PO Q6H PRN PRN Reason: GI Upset Last Admin: 11/19/23 19:16 Dose: 30 ml Documented By: LAMIN Benzocaine (Throat Lozenge, Medicated Lozenge) 1 lozenge MUCOUS MEM Q2H PRN PRN Reason: Sore Throat Last Admin: 12/10/23 08:25 Dose: 1 lozenge Documented By: CHAS Benzonatate (Benzonatate 100 Mg Capsule) 100 mg PO TID PRN PRN Reason: Cough Buprenorphine/Naloxone (Buprenorphine/Naloxone 8/2 Mg Film) 1 film SUBLINGUAL BID [facility] Last Admin: 12/16/23 08:22 Dose: 1 film Documented By: ASIF Divalproex Sodium (Divalproex Sodium 250 Mg Tablet.Dr) 250 mg PO TID [facility] Last Admin: 12/16/23 08:22 Dose: 250 mg Documented By: ASIF Docusate Sodium (Docusate Sodium 100 Mg Capsule) 100 mg PO DAILY PRN PRN Reason: Constipation Magnesium Oxide (Magnesium Oxide 400 Mg Tablet) 400 mg PO BEDTIME [facility] Last Admin: 12/15/23 20:35 Dose: 400 mg Documented By: JOSEPHILBaldo Multivitamins/Vitamin C (Multivitamin Tablet) 1 tab PO DAILY [facility] Last Admin: 12/16/23 08:22 Dose: 1 tab Documented By: ASIF Nicotine Polacrilex (Nicotine Polacrilex 2 Mg Gum) 4 mg BUCCAL Q2H PRN PRN Reason: nicotine addiction Last Admin: 12/16/23 14:20 Dose: 4 mg Documented By: ASIF Olanzapine (Olanzapine 10 Mg Vial) 5 mg IM DAILY PRN PRN Reason: severe agitation Ondansetron HCl (Ondansetron Hcl 4 Mg/2 Ml Vial) 4 mg IVPUSH Q8H PRN PRN Reason: Nausea and Vomiting Ondansetron HCl (Ondansetron Odt 4 Mg Tab.Rapdis) 4 mg TRANSLINGU Q6H PRN PRN Reason: Nausea and Vomiting Last Admin: 12/01/23 23:36 Dose: 4 mg Documented By: JOE Risperidone (Risperidone 1 Mg Tablet) 1 mg PO BID [facility] Last Admin: 12/16/23 08:22 Dose: 1 mg Documented By: ASIF Labs 12/04/23 10:41 12/09/23 05:39 Assessment and Plan (1) Alcoholic Korsakoff syndrome: Status: Acute (2) Opioid use disorder: Status: Acute Plan Pt is a 48-year-old female with a PMH significant for opioid use disorder on Suboxone, alcohol use disorder, and Korsakoff's syndrome? who initially presented to the ED on?09/19/2023 looking for her Clement that she had not seen for a few days. Pt apparently had heard he was at this hospital so she called an ambulance to bring her here. Pt will be admitted to the hospital while awaiting guardianship and LTC placement. Guardianship hearing is scheduled for 10/09/2023. 1.Alcohol Korsakoff's syndrome -Continue Depakote and risperidone -no behavioral issues noted, continue as needed Zyprexa 2.Opioid use disorder -Continue Suboxone 3. Tobacco use disorder continue Nicorette gum Full Code Pt ambulatory. Pt will require a hospitalization pending guardianship and safe placement Quality Stroke Does the patient have a stroke diagnosis?: No VTE Prior VTE?: No VTE Risk Level:: Medical - low VTE Device Contraindication: Treatment Not Indicated VTE Drug Contraindication: Treatment Not Indicated
[2023-12-16 15:03] VITALS: BP 102/61; PULSE 71; RESP 18; TEMP 36.3; O2SAT 94
[2023-12-16 19:32] VITALS: BP 101/57; PULSE 64; RESP 18; TEMP 36.1; O2SAT 93
[2023-12-16] MEDS: Magnesium Oxide 400 MG TABLET PO (20:14)
[2023-12-17] MEDS: Nicotine Polacrilex 2 MG GUM 4 MG BUCCAL ×8 (01:10→23:55)
[2023-12-17 03:14] VITALS: BP 116/60; PULSE 68; RESP 18; TEMP 36.1; O2SAT 100
[2023-12-17 07:31] VITALS: BP 130/62; PULSE 64; RESP 18; TEMP 36.6; O2SAT 95
[2023-12-17] MEDS: Divalproex Sodium 250 MG TABLET.DR PO ×3 (08:27→19:49)
[2023-12-17] MEDS: Multivitamin TABLET 1 TAB PO (08:27)
[2023-12-17] MEDS: Buprenorphine/Naloxone 8/2 mg FILM 1 FILM SUBLINGUAL ×2 (08:27→19:48)
[2023-12-17] MEDS: risperiDONE 1 MG TABLET PO ×2 (08:27→19:49)
[2023-12-17] MEDS: Acetaminophen 325 MG TABLET 650 MG PO ×2 (13:24→19:49)
--- NOTE | 2023-12-17 14:45 | MHC.CM.PN ---
Addendum entered by Jihan Butler RN 12/18/23 09:54: CM rec'd call back from Leanne @ [facility] who states she spoke with her Oversight Officer, who agrees with plan, no concerns re: dc home w/ Conchis. Leanne will meet with Bud Tuesday 12/19 at 1000 at [facility] if still here or home if dc'd. Original Note: HETAL spoke with guardian/sister Conchis this morning re: dc plan. Conchis would like time to speak with family regarding potential plan to take patient home. Would also like to speak with MD. Message sent to MD to call. HETAL placed [facility] referrals for SN/med management. No accepting agency at this time. Plan to refer to [facility] if Conchis is agreeable. Attempted to f/u w/ Conchis this afternoon, no answer. Leanne of [facility] returned call to HETAL, no concerns re: potential dc plan home w/ Conchis. Alecia will confirm w/ Oversight Officer and call back tomorrow morning. Also followed up with [facility], per [place] in admissions this is still being reviewed. HETAL will continue to follow.
--- NOTE | 2023-12-17 14:52 | P.PNIM_ITS ---
Subjective Subjective Date of Service: 12/18/23 Interval History: Being followed for placement Offers no acute complaints No acute events overnight. Review of Systems All other system reviewed and negative. Physical Exam 2 Vital Signs: Vital Signs: Last Vital Signs Temp 98 F 12/17/23 07:31 Pulse 64 12/17/23 07:31 Resp 18 12/17/23 07:31 BP 130/62 12/17/23 07:31 Pulse Ox 95 12/17/23 07:31 O2 Del Method Room Air 12/17/23 07:31 O2 Flow Rate 3 10/05/23 16:00 BMI result Body Mass Index 22.7 Const: Other: General awake alert, in no acute distress. Neck supple no JVD. CVS regular rate rhythm, Respiratory lungs clear to auscultation, no respiratory distress, no wheeze, no rhonchi. Gastrointestinal abdomen soft, non tender, bowel sounds audible Extremities no edema. Neuro speech clear, no focal weakness. Poor insight Objective Data Active Medications Acetaminophen (Acetaminophen 325 Mg Tablet) 650 mg PO Q6H PRN PRN Reason: Pain, Mild (Pain Scale 1-3) Last Admin: 12/17/23 13:24 Dose: 650 mg Documented By: ELOISE Al Hydroxide/Mg Hydroxide (Magnesium Hydrox/Alum Hydrox 30 Ml Oral.Susp) 30 ml PO Q6H PRN PRN Reason: GI Upset Last Admin: 11/19/23 19:16 Dose: 30 ml Documented By: LAMIN Benzocaine (Throat Lozenge, Medicated Lozenge) 1 lozenge MUCOUS MEM Q2H PRN PRN Reason: Sore Throat Last Admin: 12/10/23 08:25 Dose: 1 lozenge Documented By: CHAS Benzonatate (Benzonatate 100 Mg Capsule) 100 mg PO TID PRN PRN Reason: Cough Buprenorphine/Naloxone (Buprenorphine/Naloxone 8/2 Mg Film) 1 film SUBLINGUAL BID [facility] Last Admin: 12/17/23 08:27 Dose: 1 film Documented By: ELOISE Divalproex Sodium (Divalproex Sodium 250 Mg Tablet.Dr) 250 mg PO TID [facility] Last Admin: 12/17/23 08:27 Dose: 250 mg Documented By: ELOISE Docusate Sodium (Docusate Sodium 100 Mg Capsule) 100 mg PO DAILY PRN PRN Reason: Constipation Magnesium Oxide (Magnesium Oxide 400 Mg Tablet) 400 mg PO BEDTIME [facility] Last Admin: 12/16/23 20:14 Dose: 400 mg Documented By: LAMIN Multivitamins/Vitamin C (Multivitamin Tablet) 1 tab PO DAILY [facility] Last Admin: 12/17/23 08:27 Dose: 1 tab Documented By: ELOISE Nicotine Polacrilex (Nicotine Polacrilex 2 Mg Gum) 4 mg BUCCAL Q2H PRN PRN Reason: nicotine addiction Last Admin: 12/17/23 13:06 Dose: 4 mg Documented By: ELOISE Olanzapine (Olanzapine 10 Mg Vial) 5 mg IM DAILY PRN PRN Reason: severe agitation Ondansetron HCl (Ondansetron Hcl 4 Mg/2 Ml Vial) 4 mg IVPUSH Q8H PRN PRN Reason: Nausea and Vomiting Ondansetron HCl (Ondansetron Odt 4 Mg Tab.Rapdis) 4 mg TRANSLINGU Q6H PRN PRN Reason: Nausea and Vomiting Last Admin: 12/01/23 23:36 Dose: 4 mg Documented By: JOE Risperidone (Risperidone 1 Mg Tablet) 1 mg PO BID [facility] Last Admin: 12/17/23 08:27 Dose: 1 mg Documented By: ELOISE Labs 12/04/23 10:41 12/09/23 05:39 Assessment and Plan (1) Alcoholic Korsakoff syndrome: Status: Acute (2) Opioid use disorder: Status: Acute Plan Pt is a 48-year-old female with a PMH significant for opioid use disorder on Suboxone, alcohol use disorder, and Korsakoff's syndrome? who initially presented to the ED on?09/19/2023 looking for her Clement that she had not seen for a few days. Pt apparently had heard he was at this hospital so she called an ambulance to bring her here. Pt will be admitted to the hospital while awaiting guardianship and LTC placement. Guardianship hearing is scheduled for 10/09/2023. 1.Alcohol Korsakoff's syndrome -Continue Depakote and risperidone -no behavioral issues noted, continue as needed Zyprexa 2.Opioid use disorder -Continue Suboxone 3. Tobacco use disorder continue Nicorette gum 4. Acute hyponatremia noted on 12/03 ,now resolved was likely due to excessive fluid intake, serum osmolality 287, patient placed on 1800 mL fluid restriction, follow labs Full Code Pt ambulatory. Pt will require a hospitalization pending guardianship and safe placement Quality Stroke Does the patient have a stroke diagnosis?: No VTE Prior VTE?: No VTE Risk Level:: Medical - low VTE Device Contraindication: Treatment Not Indicated VTE Drug Contraindication: Treatment Not Indicated
[2023-12-17 15:51] VITALS: BP 99/54; PULSE 66; RESP 18; TEMP 36.4; O2SAT 96
[2023-12-17] MEDS: Magnesium Oxide 400 MG TABLET PO (19:49)
[2023-12-17 20:00] VITALS: BP 106/67; PULSE 71; RESP 17; TEMP 36.2; O2SAT 96
[2023-12-18 03:45] VITALS: BP 100/61; PULSE 67; RESP 16; TEMP 36.4; O2SAT 95
[2023-12-18] MEDS: Nicotine Polacrilex 2 MG GUM 4 MG BUCCAL ×5 (04:17→20:51)
[2023-12-18] MEDS: Acetaminophen 325 MG TABLET 650 MG PO ×2 (04:20→19:24)
[2023-12-18] MEDS: Divalproex Sodium 250 MG TABLET.DR PO ×3 (07:27→20:51)
[2023-12-18] MEDS: risperiDONE 1 MG TABLET PO ×2 (07:27→20:51)
[2023-12-18] MEDS: Multivitamin TABLET 1 TAB PO (07:27)
[2023-12-18] MEDS: Buprenorphine/Naloxone 8/2 mg FILM 1 FILM SUBLINGUAL ×2 (07:27→20:51)
[2023-12-18 07:47] VITALS: BP 102/66; PULSE 68; RESP 16; TEMP 36.6; O2SAT 95
--- NOTE | 2023-12-18 11:45 | MHC.CM.PN ---
Addendum entered by Jihan Butler RN 12/18/23 16:19: Per [facility] CM, discussed support options w/ guardian. [facility] CM is working on application for congregate housing and for PRACHI waiver. CM will continue to follow. Addendum entered by Jihan Butler RN 12/18/23 15:18: CM requested update from [facility] on bed availability. Awaiting response. Original Note: CM communicating w/ guardian throughout the day. [facility] has accepted and can start services end of week next week. Discussed plan for AFC services w/ Samantha (sister) as caregiver. Samantha living in the home, but not willing to serve as caregiver at this time. Placed referral to [facility] to explore options for support w/ guardian. Conchis would also like to explore eventual AFC in alternate caregivers home, understands that this would be explored after dc and takes an extended amount of time, and CM is unsure if patient is eligible. Conchis still considering taking patient home, feels she needs a few days to continue to discuss w/ family. CM will continue to follow.
--- NOTE | 2023-12-18 14:00 | HO.PM.IMPN ---
Subjective Subjective Date of Service: 12/18/23 Interval History: Offers no acute complaints asking for Nicorette gums, tolerating diet no nausea, no vomiting, no abdominal pain or diarrhea. Review of Systems All other system reviewed and negative. Physical Exam Vital Signs: Vital Signs: Last Vital Signs Temp 97.8 F 12/18/23 07:47 Pulse 68 12/18/23 07:47 Resp 16 12/18/23 07:47 BP 102/66 12/18/23 07:47 Pulse Ox 95 12/18/23 07:47 O2 Del Method Room Air 12/18/23 07:47 O2 Flow Rate 3 10/05/23 16:00 BMI result Body Mass Index 22.7 Const: Other: General awake alert, in no acute distress. Neck supple no JVD. CVS regular rate rhythm, Respiratory lungs clear to auscultation, no respiratory distress, no wheeze, no rhonchi. Gastrointestinal abdomen soft, non tender, bowel sounds audible Extremities no edema. Neuro speech clear, no focal weakness. Poor insight Objective Data Active Medications Acetaminophen (Acetaminophen 325 Mg Tablet) 650 mg PO Q6H PRN PRN Reason: Pain, Mild (Pain Scale 1-3) Last Admin: 12/18/23 04:20 Dose: 650 mg Documented By: MELISSA Al Hydroxide/Mg Hydroxide (Magnesium Hydrox/Alum Hydrox 30 Ml Oral.Susp) 30 ml PO Q6H PRN PRN Reason: GI Upset Last Admin: 11/19/23 19:16 Dose: 30 ml Documented By: LAMIN Benzocaine (Throat Lozenge, Medicated Lozenge) 1 lozenge MUCOUS MEM Q2H PRN PRN Reason: Sore Throat Last Admin: 12/10/23 08:25 Dose: 1 lozenge Documented By: CHAS Benzonatate (Benzonatate 100 Mg Capsule) 100 mg PO TID PRN PRN Reason: Cough Buprenorphine/Naloxone (Buprenorphine/Naloxone 8/2 Mg Film) 1 film SUBLINGUAL BID [facility] Last Admin: 12/18/23 07:27 Dose: 1 film Documented By: CHRISTOFER Divalproex Sodium (Divalproex Sodium 250 Mg Tablet.Dr) 250 mg PO TID [facility] Last Admin: 12/18/23 13:55 Dose: 250 mg Documented By: CHRISTOFER Docusate Sodium (Docusate Sodium 100 Mg Capsule) 100 mg PO DAILY PRN PRN Reason: Constipation Magnesium Oxide (Magnesium Oxide 400 Mg Tablet) 400 mg PO BEDTIME [facility] Last Admin: 12/17/23 19:49 Dose: 400 mg Documented By: REE Multivitamins/Vitamin C (Multivitamin Tablet) 1 tab PO DAILY [facility] Last Admin: 12/18/23 07:27 Dose: 1 tab Documented By: CHRISTOFER Nicotine Polacrilex (Nicotine Polacrilex 2 Mg Gum) 4 mg BUCCAL Q2H PRN PRN Reason: nicotine addiction Last Admin: 12/18/23 13:09 Dose: 4 mg Documented By: JOSEPH Olanzapine (Olanzapine 10 Mg Vial) 5 mg IM DAILY PRN PRN Reason: severe agitation Ondansetron HCl (Ondansetron Hcl 4 Mg/2 Ml Vial) 4 mg IVPUSH Q8H PRN PRN Reason: Nausea and Vomiting Ondansetron HCl (Ondansetron Odt 4 Mg Tab.Rapdis) 4 mg TRANSLINGU Q6H PRN PRN Reason: Nausea and Vomiting Last Admin: 12/01/23 23:36 Dose: 4 mg Documented By: JOE Risperidone (Risperidone 1 Mg Tablet) 1 mg PO BID [facility] Last Admin: 12/18/23 07:27 Dose: 1 mg Documented By: CHRISTOFER Labs 12/04/23 10:41 12/09/23 05:39 Assessment and Plan (1) Alcoholic Korsakoff syndrome: Status: Acute (2) Opioid use disorder: Status: Acute Plan Pt is a 48-year-old female with a PMH significant for opioid use disorder on Suboxone, alcohol use disorder, and Korsakoff's syndrome? who initially presented to the ED on?09/19/2023 looking for her Clement that she had not seen for a few days. Pt apparently had heard he was at this hospital so she called an ambulance to bring her here. Pt will be admitted to the hospital while awaiting guardianship and LTC placement. Guardianship hearing is scheduled for 10/09/2023. 1.Alcohol Korsakoff's syndrome -Continue Depakote and risperidone -no behavioral issues noted, continue as needed Zyprexa -spoke with patient's sister Conchis [phone] and updated her about patient's current medications, clinical condition and diagnosis. 2.Opioid use disorder -Continue Suboxone 3. Tobacco use disorder continue Nicorette gum 4. Acute hyponatremia noted on 12/03 ,now resolved was likely due to excessive fluid intake, serum osmolality 287, patient placed on 1800 mL fluid restriction, follow labs Full Code Pt ambulatory. Pt will require a hospitalization pending guardianship and safe placement Quality Stroke Does the patient have a stroke diagnosis?: No VTE Prior VTE?: No VTE Risk Level:: Medical - low VTE Device Contraindication: Treatment Not Indicated VTE Drug Contraindication: Treatment Not Indicated
[2023-12-18 15:24] VITALS: BP 112/60; PULSE 72; RESP 16; TEMP 36.5; O2SAT 96
[2023-12-18 20:00] VITALS: BP 121/59; PULSE 68; RESP 16; TEMP 36.4; O2SAT 96
[2023-12-18] MEDS: Magnesium Oxide 400 MG TABLET PO (20:51)
[2023-12-19 03:02] VITALS: RESP 16
[2023-12-19 07:24] LABS: Anion Gap 9 (12-20); Blood Urea Nitrogen 14 mg/dL (9-16); Calcium 9.8 mg/dL (8.4-10.2); Carbon Dioxide 32 mmol/L (22-29); Chloride 104 mmol/L (96-108); Creatinine Clr Calc Pharmacy 82.8; Estimated Glomerular Filt Rate > 60; Glucose Random 83 mg/dL (60-115); Potassium 4.4 mmol/L (3.3-5.1); Sodium 141 mmol/L (135-145)
[2023-12-19] MEDS: Nicotine Polacrilex 2 MG GUM 4 MG BUCCAL ×3 (07:25→19:07)
[2023-12-19 08:00] VITALS: BP 95/52; PULSE 60; RESP 14; TEMP 36.2; O2SAT 95
--- NOTE | 2023-12-19 08:41 | P.PNIM_ITS ---
Subjective Subjective Date of Service: 12/19/23 Interval History: Being followed for placement Patient feels frustrated being in the hospital, is not hopeful that she will go home with sisters, answering questions appropriately. Review of Systems All other system reviewed and negative. Physical Exam 2 Vital Signs: Vital Signs: Last Vital Signs Temp 97.2 F 12/19/23 08:00 Pulse 60 12/19/23 08:00 Resp 14 12/19/23 08:00 BP 95/52 L 12/19/23 08:00 Pulse Ox 95 12/19/23 08:00 O2 Del Method Room Air 12/19/23 08:00 O2 Flow Rate 3 10/05/23 16:00 BMI result Body Mass Index 22.7 Const: Other: General awake alert, in no acute distress. Neck supple no JVD. CVS regular rate rhythm, Respiratory lungs clear to auscultation, no respiratory distress, no wheeze, no rhonchi. Gastrointestinal abdomen soft, non tender, bowel sounds audible Extremities no edema. Neuro speech clear, no focal weakness. Poor insight Objective Data Active Medications Acetaminophen (Acetaminophen 325 Mg Tablet) 650 mg PO Q6H PRN PRN Reason: Pain, Mild (Pain Scale 1-3) Last Admin: 12/18/23 19:24 Dose: 650 mg Documented By: JUAN Al Hydroxide/Mg Hydroxide (Magnesium Hydrox/Alum Hydrox 30 Ml Oral.Susp) 30 ml PO Q6H PRN PRN Reason: GI Upset Last Admin: 11/19/23 19:16 Dose: 30 ml Documented By: LAMIN Benzocaine (Throat Lozenge, Medicated Lozenge) 1 lozenge MUCOUS MEM Q2H PRN PRN Reason: Sore Throat Last Admin: 12/10/23 08:25 Dose: 1 lozenge Documented By: CHAS Benzonatate (Benzonatate 100 Mg Capsule) 100 mg PO TID PRN PRN Reason: Cough Divalproex Sodium (Divalproex Sodium 250 Mg Tablet.) 250 mg PO TID COUNT INCLUDES [facility] Last Admin: 12/18/23 20:51 Dose: 250 mg Documented By: JUAN Docusate Sodium (Docusate Sodium 100 Mg Capsule) 100 mg PO DAILY PRN PRN Reason: Constipation Magnesium Oxide (Magnesium Oxide 400 Mg Tablet) 400 mg PO BEDTIME COUNT INCLUDES [facility] Last Admin: 12/18/23 20:51 Dose: 400 mg Documented By: JUAN Multivitamins/Vitamin C (Multivitamin Tablet) 1 tab PO DAILY COUNT [facility]CLUDES [facility] Last Admin: 12/18/23 07:27 Dose: 1 tab Documented By: CHRISTOFER Nicotine Polacrilex (Nicotine Polacrilex 2 Mg Gum) 4 mg BUCCAL Q2H PRN PRN Reason: nicotine addiction Last Admin: 12/19/23 07:25 Dose: 4 mg Documented By: JOSEPH Olanzapine (Olanzapine 10 Mg Vial) 5 mg IM DAILY PRN PRN Reason: severe agitation Ondansetron HCl (Ondansetron Hcl 4 Mg/2 Ml Vial) 4 mg IVPUSH Q8H PRN PRN Reason: Nausea and Vomiting Ondansetron HCl (Ondansetron Odt 4 Mg Tab.Rapdis) 4 mg TRANSLINGU Q6H PRN PRN Reason: Nausea and Vomiting Last Admin: 12/01/23 23:36 Dose: 4 mg Documented By: JOE Risperidone (Risperidone 1 Mg Tablet) 1 mg PO BID COUNT [facility]CLUDES [facility] Last Admin: 12/18/23 20:51 Dose: 1 mg Documented By: JUAN Labs 12/04/23 10:41 12/19/23 05:28 Labs: Laboratory Results - last 24 hr 12/19/23 05:28 Hold Purple Top SEE NOTE Anion Gap 9 L Estim Creat Clear Calc 82.8 Estimated GFR > 60 Random Glucose 83 Calcium 9.8 Assessment and Plan (1) Alcoholic Korsakoff syndrome: Status: Acute (2) Opioid use disorder: Status: Acute Plan Pt is a 48-year-old female with a PMH significant for opioid use disorder on Suboxone, alcohol use disorder, and Korsakoff's syndrome? who initially presented to the ED on?09/19/2023 looking for her Clement that she had not seen for a few days. Pt apparently had heard he was at this hospital so she called an ambulance to bring her here. Pt will be admitted to the hospital while awaiting guardianship and LTC placement. Guardianship hearing is scheduled for 10/09/2023. 1.Alcohol Korsakoff's syndrome -Continue Depakote and risperidone -no behavioral issues noted, continue as needed Zyprexa -spoke with patient's sister Conchis [phone] 12/17 and updated her about patient's current medications, clinical condition and diagnosis. She will discuss with her other sister Samantha and get back to us if she is willing to take her home 2.Opioid use disorder -Continue Suboxone 3. Tobacco use disorder continue Nicorette gum 4. Acute hyponatremia noted on 12/03 ,now resolved was likely due to excessive fluid intake, serum osmolality 287, patient placed on 1800 mL fluid restriction, sodium 141 today 12/18 with a bicarb of 32, will liberalize fluid intake to 2000 mL and repeat labs in 1 week Full Code Pt ambulatory. Pt will require a hospitalization pending guardianship and safe placement Quality Stroke Does the patient have a stroke diagnosis?: No VTE Prior VTE?: No VTE Risk Level:: Medical - low VTE Device Contraindication: Treatment Not Indicated VTE Drug Contraindication: Treatment Not Indicated
[2023-12-19] MEDS: Divalproex Sodium 250 MG TABLET.DR PO ×3 (08:43→21:18)
[2023-12-19] MEDS: risperiDONE 1 MG TABLET PO ×2 (08:43→21:18)
[2023-12-19] MEDS: Multivitamin TABLET 1 TAB PO (08:43)
[2023-12-19] MEDS: Buprenorphine/Naloxone 8/2 mg FILM 1 FILM SUBLINGUAL ×2 (08:48→21:18)
[2023-12-19 15:22] VITALS: BP 99/68; PULSE 59; RESP 18; TEMP 36.3; O2SAT 95
[2023-12-19 19:47] VITALS: BP 112/56; PULSE 62; RESP 18; TEMP 36.2; O2SAT 94
[2023-12-19] MEDS: Magnesium Oxide 400 MG TABLET PO (21:18)
[2023-12-20 03:35] VITALS: BP 95/53; PULSE 69; RESP 16; TEMP 36.2; O2SAT 92
[2023-12-20] MEDS: Buprenorphine/Naloxone 8/2 mg FILM 1 FILM SUBLINGUAL ×2 (06:57→20:11)
[2023-12-20] MEDS: risperiDONE 1 MG TABLET PO ×2 (06:58→20:10)
[2023-12-20] MEDS: Multivitamin TABLET 1 TAB PO (06:58)
[2023-12-20] MEDS: Divalproex Sodium 250 MG TABLET.DR PO ×3 (06:58→20:10)
--- NOTE | 2023-12-20 07:36 | P.PNIM_ITS ---
Subjective Subjective Date of Service: 12/20/23 Interval History: Being followed for placement Complaining of headache, left shoulder pain, foot pain. Answering questions appropriately Review of Systems All other system reviewed and negative. Physical Exam 2 Vital Signs: Vital Signs: Last Vital Signs Temp 97.1 F 12/20/23 03:35 Pulse 69 12/20/23 03:35 Resp 16 12/20/23 03:35 BP 95/53 L 12/20/23 03:35 Pulse Ox 92 12/20/23 03:35 O2 Del Method Room Air 12/20/23 03:35 O2 Flow Rate 3 10/05/23 16:00 BMI result Body Mass Index 22.7 Const: Other: General awake alert, in no acute distress. Neck supple no JVD. CVS regular rate rhythm, Respiratory lungs clear to auscultation, no respiratory distress, no wheeze, no rhonchi. Gastrointestinal abdomen soft, non tender, bowel sounds audible Extremities no edema. Neuro speech clear, no focal weakness. Poor insight Objective Data Active Medications Acetaminophen (Acetaminophen 325 Mg Tablet) 650 mg PO Q6H PRN PRN Reason: Pain, Mild (Pain Scale 1-3) Last Admin: 12/18/23 19:24 Dose: 650 mg Documented By: JUAN Al Hydroxide/Mg Hydroxide (Magnesium Hydrox/Alum Hydrox 30 Ml Oral.Susp) 30 ml PO Q6H PRN PRN Reason: GI Upset Last Admin: 11/19/23 19:16 Dose: 30 ml Documented By: LAMIN Benzocaine (Throat Lozenge, Medicated Lozenge) 1 lozenge MUCOUS MEM Q2H PRN PRN Reason: Sore Throat Last Admin: 12/10/23 08:25 Dose: 1 lozenge Documented By: CHAS Benzonatate (Benzonatate 100 Mg Capsule) 100 mg PO TID PRN PRN Reason: Cough Buprenorphine/Naloxone (Buprenorphine/Naloxone 8/2 Mg Film) 1 film SUBLINGUAL BID [facility] Last Admin: 12/20/23 06:57 Dose: 1 film Documented By: CHRISTOFER Divalproex Sodium (Divalproex Sodium 250 Mg Tablet.Dr) 250 mg PO TID [facility] Last Admin: 12/20/23 06:58 Dose: 250 mg Documented By: CHRISTOFER Docusate Sodium (Docusate Sodium 100 Mg Capsule) 100 mg PO DAILY PRN PRN Reason: Constipation Magnesium Oxide (Magnesium Oxide 400 Mg Tablet) 400 mg PO BEDTIME [facility] Last Admin: 12/19/23 21:18 Dose: 400 mg Documented By: ANNA Multivitamins/Vitamin C (Multivitamin Tablet) 1 tab PO DAILY [facility] Last Admin: 12/20/23 06:58 Dose: 1 tab Documented By: CHRISTOFER Nicotine Polacrilex (Nicotine Polacrilex 2 Mg Gum) 4 mg BUCCAL Q2H PRN PRN Reason: nicotine addiction Last Admin: 12/19/23 19:07 Dose: 4 mg Documented By: JOSEPH Olanzapine (Olanzapine 10 Mg Vial) 5 mg IM DAILY PRN PRN Reason: severe agitation Ondansetron HCl (Ondansetron Hcl 4 Mg/2 Ml Vial) 4 mg IVPUSH Q8H PRN PRN Reason: Nausea and Vomiting Ondansetron HCl (Ondansetron Odt 4 Mg Tab.Rapdis) 4 mg TRANSLINGU Q6H PRN PRN Reason: Nausea and Vomiting Last Admin: 12/01/23 23:36 Dose: 4 mg Documented By: JOE Risperidone (Risperidone 1 Mg Tablet) 1 mg PO BID [facility] Last Admin: 12/20/23 06:58 Dose: 1 mg Documented By: CHRISTOFER Labs 12/04/23 10:41 12/19/23 05:28 Assessment and Plan (1) Alcoholic Korsakoff syndrome: Status: Acute (2) Opioid use disorder: Status: Acute Plan Pt is a 48-year-old female with a PMH significant for opioid use disorder on Suboxone, alcohol use disorder, and Korsakoff's syndrome? who initially presented to the ED on?09/19/2023 looking for her Clement that she had not seen for a few days. Pt apparently had heard he was at this hospital so she called an ambulance to bring her here. Pt will be admitted to the hospital while awaiting guardianship and LTC placement. Guardianship hearing is scheduled for 10/09/2023. 1.Alcohol Korsakoff's syndrome -Continue Depakote and risperidone -no behavioral issues noted, continue as needed Zyprexa -spoke with patient's sister Conchis [phone] 12/17 and updated her about patient's current medications, clinical condition and diagnosis. She will discuss with her other sister Samantha and get back to us if she is willing to take her home 2.Opioid use disorder -Continue Suboxone 3. Tobacco use disorder continue Nicorette gum 4. Acute hyponatremia noted on 12/03- ,now resolved -was likely due to excessive fluid intake, serum osmolality 287, patient placed on 1800 mL fluid restriction, sodium 141 today 12/18 with a bicarb of 32, -will liberalize fluid intake to 2000 mL and repeat labs in 1 week 12/25 Full Code Pt ambulatory. Pt will require a hospitalization pending guardianship and safe placement Quality Stroke Does the patient have a stroke diagnosis?: No VTE Prior VTE?: No VTE Risk Level:: Medical - low VTE Device Contraindication: Treatment Not Indicated VTE Drug Contraindication: Treatment Not Indicated
[2023-12-20 07:46] VITALS: BP 99/52; PULSE 56; RESP 16; TEMP 36.6; O2SAT 93
[2023-12-20] MEDS: Lidocaine 4 % Patch ADH..PATCH 1 PATCH TRANSDERMA (08:46)
[2023-12-20] MEDS: Nicotine Polacrilex 2 MG GUM 4 MG BUCCAL ×5 (08:46→22:16)
[2023-12-20] MEDS: Acetaminophen 325 MG TABLET 650 MG PO (08:46)
--- NOTE | 2023-12-20 10:49 | MHC.CM.PN ---
Addendum entered by Jihan Butler RN 12/20/23 15:23: CM spoke w/ guardian Conchis who reports she is unable to take patient home as she lives in housing and is not allowed to have anyone else living with her. [facility] continues to pursue congregate housing. [facility] following. CM will continue to follow for safe dc. Addendum entered by Jihan Butler RN 12/20/23 13:37: Left second message for guardian Addendum entered by Jihan Butler RN 12/20/23 11:35: Leanne of [facility] at bedside to interview patient. CM updated on potential dc plan. Original Note: CM left message for guardian to follow up on dc plan.
[2023-12-20 15:49] VITALS: BP 117/60; PULSE 59; RESP 18; TEMP 36.6; O2SAT 96
[2023-12-20 19:52] VITALS: BP 117/63; PULSE 64; RESP 18; TEMP 36.8; O2SAT 93
[2023-12-20] MEDS: Magnesium Oxide 400 MG TABLET PO (20:10)
[2023-12-21] MEDS: Acetaminophen 325 MG TABLET 650 MG PO (00:30)
[2023-12-21] MEDS: Nicotine Polacrilex 2 MG GUM 4 MG BUCCAL ×7 (00:30→19:36)
[2023-12-21 04:00] VITALS: BP 100/57; PULSE 60; RESP 18; TEMP 36.3; O2SAT 96
[2023-12-21 06:54] VITALS: BP 110/58; PULSE 64; RESP 16; TEMP 36.1; O2SAT 98
[2023-12-21] MEDS: Multivitamin TABLET 1 TAB PO (08:10)
[2023-12-21] MEDS: risperiDONE 1 MG TABLET PO ×2 (08:10→20:15)
[2023-12-21] MEDS: Buprenorphine/Naloxone 8/2 mg FILM 1 FILM SUBLINGUAL ×2 (08:10→20:15)
[2023-12-21] MEDS: Lidocaine 4 % Patch ADH..PATCH 1 PATCH TRANSDERMA (08:10)
[2023-12-21] MEDS: Divalproex Sodium 250 MG TABLET.DR PO ×3 (08:10→20:15)
--- NOTE | 2023-12-21 11:32 | P.PNIM_ITS ---
Subjective Subjective Date of Service: 12/21/23 Interval History: Seen this morning comfortable in her room Review of Systems Review of Systems: Yes all other systems are reviewed and are negative Physical Exam 2 Vital Signs: Vital Signs: Last Vital Signs Temp 97 F 12/21/23 06:54 Pulse 16 L 12/21/23 06:54 Resp 16 12/21/23 06:54 BP 110/58 L 12/21/23 06:54 Pulse Ox 98 12/21/23 06:54 O2 Del Method Room Air 12/21/23 06:54 O2 Flow Rate 3 10/05/23 16:00 BMI result Body Mass Index 22.7 Const: Other: Constitutional : interactive, not in distress Cardiovascular : no JVP, no lower extremity edema Respiratory : bilateral chest movement, not in resp distress Gastrointestinal: soft, lax, Non tender Skin : Warm, Dry Neurological : Alert , No focal deficit Objective Data Active Medications Acetaminophen (Acetaminophen 325 Mg Tablet) 650 mg PO Q6H PRN PRN Reason: Pain, Mild (Pain Scale 1-3) Last Admin: 12/21/23 00:30 Dose: 650 mg Documented By: LAMIN Al Hydroxide/Mg Hydroxide (Magnesium Hydrox/Alum Hydrox 30 Ml Oral.Susp) 30 ml PO Q6H PRN PRN Reason: GI Upset Last Admin: 11/19/23 19:16 Dose: 30 ml Documented By: LAMIN Benzocaine (Throat Lozenge, Medicated Lozenge) 1 lozenge MUCOUS MEM Q2H PRN PRN Reason: Sore Throat Last Admin: 12/10/23 08:25 Dose: 1 lozenge Documented By: CHAS Benzonatate (Benzonatate 100 Mg Capsule) 100 mg PO TID PRN PRN Reason: Cough Buprenorphine/Naloxone (Buprenorphine/Naloxone 8/2 Mg Film) 1 film SUBLINGUAL BID [facility] Last Admin: 12/21/23 08:10 Dose: 1 film Documented By: EWA Divalproex Sodium (Divalproex Sodium 250 Mg Tablet.Dr) 250 mg PO TID [facility] Last Admin: 12/21/23 08:10 Dose: 250 mg Documented By: EWA Docusate Sodium (Docusate Sodium 100 Mg Capsule) 100 mg PO DAILY PRN PRN Reason: Constipation Lidocaine (Lidocaine 4 % Patch Adh..Patch) 1 patch TRANSDERMA DAILY [facility]; Protocol Last Admin: 12/21/23 08:10 Dose: 1 patch Documented By: EWA Magnesium Oxide (Magnesium Oxide 400 Mg Tablet) 400 mg PO BEDTIME [facility] Last Admin: 12/20/23 20:10 Dose: 400 mg Documented By: HARJEETM Multivitamins/Vitamin C (Multivitamin Tablet) 1 tab PO DAILY [facility] Last Admin: 12/21/23 08:10 Dose: 1 tab Documented By: EWA Nicotine Polacrilex (Nicotine Polacrilex 2 Mg Gum) 4 mg BUCCAL Q2H PRN PRN Reason: nicotine addiction Last Admin: 12/21/23 11:21 Dose: 4 mg Documented By: EWA Olanzapine (Olanzapine 10 Mg Vial) 5 mg IM DAILY PRN PRN Reason: severe agitation Ondansetron HCl (Ondansetron Hcl 4 Mg/2 Ml Vial) 4 mg IVPUSH Q8H PRN PRN Reason: Nausea and Vomiting Ondansetron HCl (Ondansetron Odt 4 Mg Tab.Rapdis) 4 mg TRANSLINGU Q6H PRN PRN Reason: Nausea and Vomiting Last Admin: 12/01/23 23:36 Dose: 4 mg Documented By: JOE Risperidone (Risperidone 1 Mg Tablet) 1 mg PO BID [facility] Last Admin: 12/21/23 08:10 Dose: 1 mg Documented By: EWA Labs 12/04/23 10:41 12/19/23 05:28 Assessment and Plan (1) Alcoholic Korsakoff syndrome: Status: Acute Plan Pt is a 48-year-old female with a PMH significant for opioid use disorder on Suboxone, alcohol use disorder, and Korsakoff's syndrome? who initially presented to the ED on?09/19/2023 looking for her Clement that she had not seen for a few days. Pt apparently had heard he was at this hospital so she called an ambulance to bring her here. Pt will be admitted to the hospital while awaiting guardianship and LTC placement. Guardianship hearing is scheduled for 10/09/2023. 1.Alcohol Korsakoff's syndrome Continue Depakote and risperidone no behavioral issues noted, continue as needed Zyprexa 2.Opioid use disorder -Continue Suboxone 3. Tobacco use disorder continue Nicorette gum 4. Acute hyponatremia noted on 12/03- ,now resolved -was likely due to excessive fluid intake, serum osmolality 287, patient placed on 1800 mL fluid restriction, sodium 141 today 12/18 with a bicarb of 32, -will liberalize fluid intake to 2000 mL and repeat labs in 1 week 12/25 Full Code Pt ambulatory. Dispo: sister Conchis [phone] on 12/17 was called and updated her about patient's current medications, clinical condition and diagnosis. She will discuss with her other sister Samantha and get back to us if she is willing to take her home Pt will require a hospitalization pending guardianship and safe placement Quality Stroke Does the patient have a stroke diagnosis?: No VTE Prior VTE?: No VTE Risk Level:: Medical - low VTE Device Contraindication: Treatment Not Indicated VTE Drug Contraindication: Treatment Not Indicated
[2023-12-21 15:26] VITALS: BP 97/51; PULSE 63; RESP 20; TEMP 36.5; O2SAT 95
[2023-12-21 19:30] VITALS: BP 112/58; PULSE 60; RESP 18; TEMP 36.4; O2SAT 96
[2023-12-21] MEDS: Magnesium Oxide 400 MG TABLET PO (20:15)
[2023-12-22 03:40] VITALS: BP 100/58; PULSE 62; RESP 18; TEMP 36.7; O2SAT 97
[2023-12-22 06:54] VITALS: BP 100/54; PULSE 61; RESP 16; TEMP 36.1; O2SAT 95
[2023-12-22] MEDS: Lidocaine 4 % Patch ADH..PATCH 1 PATCH TRANSDERMA (09:04)
[2023-12-22] MEDS: Buprenorphine/Naloxone 8/2 mg FILM 1 FILM SUBLINGUAL ×2 (09:04→21:18)
[2023-12-22] MEDS: risperiDONE 1 MG TABLET PO ×2 (09:04→21:17)
[2023-12-22] MEDS: Nicotine Polacrilex 2 MG GUM 4 MG BUCCAL ×5 (09:04→19:53)
[2023-12-22] MEDS: Acetaminophen 325 MG TABLET 650 MG PO ×2 (09:04→16:52)
[2023-12-22] MEDS: Multivitamin TABLET 1 TAB PO (09:04)
[2023-12-22] MEDS: Divalproex Sodium 250 MG TABLET.DR PO ×2 (09:04→15:37)
--- NOTE | 2023-12-22 10:12 | P.PNIM_ITS ---
Subjective Subjective Date of Service: 12/22/23 Interval History: Seen this morning comfortable in her room Physical Exam 2 Vital Signs: Vital Signs: Last Vital Signs Temp 97 F 12/22/23 06:54 Pulse 61 12/22/23 06:54 Resp 16 12/22/23 06:54 BP 100/54 L 12/22/23 06:54 Pulse Ox 95 12/22/23 06:54 O2 Del Method Room Air 12/22/23 06:54 O2 Flow Rate 3 10/05/23 16:00 BMI result Body Mass Index 22.7 Const: Other: Constitutional : interactive, not in distress Cardiovascular : no JVP, no lower extremity edema Respiratory : bilateral chest movement, not in resp distress Gastrointestinal: soft, lax, Non tender Skin : Warm, Dry Neurological : Alert , No focal deficit Objective Data Active Medications Acetaminophen (Acetaminophen 325 Mg Tablet) 650 mg PO Q6H PRN PRN Reason: Pain, Mild (Pain Scale 1-3) Last Admin: 12/22/23 09:04 Dose: 650 mg Documented By: EWA Al Hydroxide/Mg Hydroxide (Magnesium Hydrox/Alum Hydrox 30 Ml Oral.Susp) 30 ml PO Q6H PRN PRN Reason: GI Upset Last Admin: 11/19/23 19:16 Dose: 30 ml Documented By: LAMIN Benzocaine (Throat Lozenge, Medicated Lozenge) 1 lozenge MUCOUS MEM Q2H PRN PRN Reason: Sore Throat Last Admin: 12/10/23 08:25 Dose: 1 lozenge Documented By: CHAS Benzonatate (Benzonatate 100 Mg Capsule) 100 mg PO TID PRN PRN Reason: Cough Buprenorphine/Naloxone (Buprenorphine/Naloxone 8/2 Mg Film) 1 film SUBLINGUAL BID [facility] Last Admin: 12/22/23 09:04 Dose: 1 film Documented By: EWA Divalproex Sodium (Divalproex Sodium 250 Mg Tablet.Dr) 250 mg PO TID [facility] Last Admin: 12/22/23 09:04 Dose: 250 mg Documented By: EWA Docusate Sodium (Docusate Sodium 100 Mg Capsule) 100 mg PO DAILY PRN PRN Reason: Constipation Lidocaine (Lidocaine 4 % Patch Adh..Patch) 1 patch TRANSDERMA DAILY [facility]; Protocol Last Admin: 12/22/23 09:04 Dose: 1 patch Documented By: EWA Magnesium Oxide (Magnesium Oxide 400 Mg Tablet) 400 mg PO BEDTIME [facility] Last Admin: 12/21/23 20:15 Dose: 400 mg Documented By: LAMIN Multivitamins/Vitamin C (Multivitamin Tablet) 1 tab PO DAILY [facility] Last Admin: 12/22/23 09:04 Dose: 1 tab Documented By: EWA Nicotine Polacrilex (Nicotine Polacrilex 2 Mg Gum) 4 mg BUCCAL Q2H PRN PRN Reason: nicotine addiction Last Admin: 12/22/23 09:04 Dose: 4 mg Documented By: EWA Olanzapine (Olanzapine 10 Mg Vial) 5 mg IM DAILY PRN PRN Reason: severe agitation Ondansetron HCl (Ondansetron Hcl 4 Mg/2 Ml Vial) 4 mg IVPUSH Q8H PRN PRN Reason: Nausea and Vomiting Ondansetron HCl (Ondansetron Odt 4 Mg Tab.Rapdis) 4 mg TRANSLINGU Q6H PRN PRN Reason: Nausea and Vomiting Last Admin: 12/01/23 23:36 Dose: 4 mg Documented By: JOE Risperidone (Risperidone 1 Mg Tablet) 1 mg PO BID [facility] Last Admin: 12/22/23 09:04 Dose: 1 mg Documented By: EWA Labs 12/04/23 10:41 12/19/23 05:28 Assessment and Plan (1) Alcoholic Korsakoff syndrome: Status: Acute Plan Pt is a 48-year-old female with a PMH significant for opioid use disorder on Suboxone, alcohol use disorder, and Korsakoff's syndrome? who initially presented to the ED on?09/19/2023 looking for her Clement that she had not seen for a few days. Pt apparently had heard he was at this hospital so she called an ambulance to bring her here. Pt will be admitted to the hospital while awaiting guardianship and LTC placement. Guardianship hearing is scheduled for 10/09/2023. 1.Alcohol Korsakoff's syndrome Continue Depakote and risperidone no behavioral issues noted, continue as needed Zyprexa 2.Opioid use disorder Continue Suboxone 3. Tobacco use disorder continue Nicorette gum 4. Acute hyponatremia noted on 12/03 resolved, due to excessive fluid intake liberalize fluid intake to 2000 mL and repeat labs in week 12/25 Full Code Pt ambulatory. Dispo: sister Conchis [phone] on 12/17 was called and updated her about patient's current medications, clinical condition and diagnosis. She will discuss with her other sister Samantha and get back to us if she is willing to take her home Pt will require a hospitalization pending guardianship and safe placement Quality Stroke Does the patient have a stroke diagnosis?: No VTE Prior VTE?: No VTE Risk Level:: Medical - low VTE Device Contraindication: Treatment Not Indicated VTE Drug Contraindication: Treatment Not Indicated
[2023-12-22 15:16] VITALS: BP 97/53; PULSE 61; RESP 20; TEMP 36.6; O2SAT 95
[2023-12-22 20:04] VITALS: BP 91/55; PULSE 68; RESP 20; TEMP 36.6; O2SAT 97
[2023-12-23] MEDS: Nicotine Polacrilex 2 MG GUM 4 MG BUCCAL ×9 (00:19→22:23)
[2023-12-23 03:56] VITALS: BP 115/51; PULSE 63; RESP 19; TEMP 36.1; O2SAT 98
--- NOTE | 2023-12-23 04:20 | PC.NURSE ---
After midnight, pt started to be pacing inside her room, voicing desire to go home, alternately unplugging room camera, slamming her door, shouting, became unredirectible, security personnel called, they came to speak to pt, pt was in agreeable to her safety and her needs, pt remained constantly asking for her nicotine gum and shirley vishnu.
[2023-12-23] MEDS: Acetaminophen 325 MG TABLET 650 MG PO ×2 (05:17→22:51)
[2023-12-23 07:06] VITALS: BP 110/56; PULSE 54; RESP 16; TEMP 36.2; O2SAT 96
[2023-12-23] MEDS: Lidocaine 4 % Patch ADH..PATCH 1 PATCH TRANSDERMA (08:47)
[2023-12-23] MEDS: Multivitamin TABLET 1 TAB PO (08:47)
[2023-12-23] MEDS: Buprenorphine/Naloxone 8/2 mg FILM 1 FILM SUBLINGUAL ×2 (08:47→20:55)
[2023-12-23] MEDS: risperiDONE 1 MG TABLET PO ×2 (08:47→20:55)
--- NOTE | 2023-12-23 08:59 | MHC.CM.PN ---
EMR REVIEWED, CM CONT'S TO LOOK FOR PLACEMENT FOR PT AND [facility] WORKING ON [employer], NO BED OFFERS AT THIS TIME, CM WILL CONT TO FOLLOW DC NEEDS.
--- NOTE | 2023-12-23 11:29 | P.PNIM_ITS ---
Subjective Subjective Date of Service: 12/23/23 Interval History: Being followed for placement, sitting comfortably able to engage in conversation, tolerating diet, wishes to ambulate outside her room, denies lightheadedness, no dizziness, no fevers no chills no nausea no vomiting tolerating diet no other acute issues overnight. Review of Systems All other system reviewed and negative. Physical Exam 2 Vital Signs: Vital Signs: Last Vital Signs Temp 97.2 F 12/23/23 07:06 Pulse 54 12/23/23 07:06 Resp 16 12/23/23 07:06 BP 110/56 L 12/23/23 07:06 Pulse Ox 96 12/23/23 07:06 O2 Del Method Room Air 12/23/23 07:06 O2 Flow Rate 3 10/05/23 16:00 BMI result Body Mass Index 22.7 Const: Other: General awake alert, in no acute distress. Neck supple no JVD. CVS regular rate rhythm, Respiratory lungs clear to auscultation, no respiratory distress, no wheeze, no rhonchi. Gastrointestinal abdomen soft, non tender, bowel sounds audible Extremities no edema. Neuro speech clear, no focal weakness. Objective Data Active Medications Acetaminophen (Acetaminophen 325 Mg Tablet) 650 mg PO Q6H PRN PRN Reason: Pain, Mild (Pain Scale 1-3) Last Admin: 12/23/23 05:17 Dose: 650 mg Documented By: BELLA Al Hydroxide/Mg Hydroxide (Magnesium Hydrox/Alum Hydrox 30 Ml Oral.Susp) 30 ml PO Q6H PRN PRN Reason: GI Upset Last Admin: 11/19/23 19:16 Dose: 30 ml Documented By: LAMIN Benzocaine (Throat Lozenge, Medicated Lozenge) 1 lozenge MUCOUS MEM Q2H PRN PRN Reason: Sore Throat Last Admin: 12/10/23 08:25 Dose: 1 lozenge Documented By: CHAS Benzonatate (Benzonatate 100 Mg Capsule) 100 mg PO TID PRN PRN Reason: Cough Buprenorphine/Naloxone (Buprenorphine/Naloxone 8/2 Mg Film) 1 film SUBLINGUAL BID [facility] Last Admin: 12/23/23 08:47 Dose: 1 film Documented By: COTEMA Docusate Sodium (Docusate Sodium 100 Mg Capsule) 100 mg PO DAILY PRN PRN Reason: Constipation Lidocaine (Lidocaine 4 % Patch Adh..Patch) 1 patch TRANSDERMA DAILY [facility]; Protocol Last Admin: 12/23/23 08:47 Dose: 1 patch Documented By: COTEMA Multivitamins/Vitamin C (Multivitamin Tablet) 1 tab PO DAILY [facility] Last Admin: 12/23/23 08:47 Dose: 1 tab Documented By: COTEMA Nicotine Polacrilex (Nicotine Polacrilex 2 Mg Gum) 4 mg BUCCAL Q2H PRN PRN Reason: nicotine addiction Last Admin: 12/23/23 11:05 Dose: 4 mg Documented By: COTEMA Olanzapine (Olanzapine 10 Mg Vial) 5 mg IM DAILY PRN PRN Reason: severe agitation Ondansetron HCl (Ondansetron Hcl 4 Mg/2 Ml Vial) 4 mg IVPUSH Q8H PRN PRN Reason: Nausea and Vomiting Ondansetron HCl (Ondansetron Odt 4 Mg Tab.Rapdis) 4 mg TRANSLINGU Q6H PRN PRN Reason: Nausea and Vomiting Last Admin: 12/01/23 23:36 Dose: 4 mg Documented By: JOE Risperidone (Risperidone 1 Mg Tablet) 1 mg PO BID [facility] Last Admin: 12/23/23 08:47 Dose: 1 mg Documented By: MAR Labs 12/04/23 10:41 12/19/23 05:28 Assessment and Plan (1) Alcoholic Korsakoff syndrome: Status: Acute Plan Pt is a 48-year-old female with a PMH significant for opioid use disorder on Suboxone, alcohol use disorder, and Korsakoff's syndrome? who initially presented to the ED on?09/19/2023 looking for her Clement that she had not seen for a few days. Pt apparently had heard he was at this hospital so she called an ambulance to bring her here. Pt will be admitted to the hospital while awaiting guardianship and LTC placement. Guardianship hearing is scheduled for 10/09/2023. 1.Alcohol Korsakoff's syndrome Continue Depakote and risperidone no behavioral issues noted, continue as needed Zyprexa 2.Opioid use disorder Continue Suboxone 3. Tobacco use disorder continue Nicorette gum 4. Acute hyponatremia noted on 12/03 resolved, due to excessive fluid intake liberalize fluid intake to 2000 mL and repeat labs in 1 week 12/25 Full Code Pt ambulatory. Dispo: sister Conchis [phone] on 12/17 was called and updated her about patient's current medications, clinical condition and diagnosis. She will discuss with her other sister Samantha and get back to us if she is willing to take her home Pt will require a hospitalization pending guardianship and safe placement Quality Stroke Does the patient have a stroke diagnosis?: No VTE Prior VTE?: No VTE Risk Level:: Medical - low VTE Device Contraindication: Treatment Not Indicated VTE Drug Contraindication: Treatment Not Indicated
[2023-12-23 15:42] VITALS: BP 118/65; PULSE 60; RESP 16; TEMP 36.2; O2SAT 95
[2023-12-23] MEDS: Divalproex Sodium 250 MG TABLET.DR PO ×2 (15:51→20:55)
[2023-12-23 19:49] VITALS: BP 112/64; PULSE 60; RESP 16; TEMP 36.4; O2SAT 93
[2023-12-24] MEDS: Nicotine Polacrilex 2 MG GUM 4 MG BUCCAL ×7 (01:33→22:59)
--- NOTE | 2023-12-24 03:24 | PC.NURSE ---
overall patient had a good night overnight. pt cooperative with RN for care and education. patient was manipulative with staff telling them that she did not have any gingerale and hiding empty cans in one trash can to attempt to get extra drinks throughout the night. RN explained the purpose of the fluid restriction but patient was not open to education r/t weepiness and what the patient described as home sickness. patient reports she wants to go home and see her family. she said he motivation is her son who she states is 17. Patient weepy/crying intermittently throughout the shift. all needs met, call noriega within reach. see MAR and worklist for futher charting.
[2023-12-24] MEDS: Acetaminophen 325 MG TABLET 650 MG PO ×2 (05:03→20:42)
--- NOTE | 2023-12-24 05:12 | PC.NURSE ---
patient non compliant with fluid restriction order. patient manipulated staff members not involved in care to bringing her cans of gingerale. patient educated on fluid restriction, patient became agitated by this.
[2023-12-24 07:33] VITALS: BP 122/60; PULSE 55; RESP 17; TEMP 36.2; O2SAT 98
[2023-12-24] MEDS: Multivitamin TABLET 1 TAB PO (08:20)
[2023-12-24] MEDS: risperiDONE 1 MG TABLET PO ×2 (08:20→20:42)
[2023-12-24] MEDS: Divalproex Sodium 250 MG TABLET.DR PO ×3 (08:21→20:42)
[2023-12-24] MEDS: Lidocaine 4 % Patch ADH..PATCH 1 PATCH TRANSDERMA (08:22)
[2023-12-24] MEDS: Buprenorphine/Naloxone 8/2 mg FILM 1 FILM SUBLINGUAL ×2 (08:34→20:42)
--- NOTE | 2023-12-24 10:39 | P.PNIM_ITS ---
Subjective Subjective Date of Service: 12/24/23 Interval History: Wishes to ambulate in hallways, tolerating diet no nausea, no vomiting no abdominal pain or diarrhea trying to do exercises in her room, answer questions appropriately, no acute events overnight, no behavioral issues. Review of Systems All other system are reviewed and negative. Physical Exam 2 Vital Signs: Vital Signs: Last Vital Signs Temp 97.1 F 12/24/23 07:33 Pulse 55 12/24/23 07:33 Resp 17 12/24/23 07:33 BP 122/60 12/24/23 07:33 Pulse Ox 98 12/24/23 07:33 O2 Del Method Room Air 12/24/23 07:33 O2 Flow Rate 3 10/05/23 16:00 BMI result Body Mass Index 22.7 Const: Other: General awake alert, in no acute distress. Neck supple no JVD. CVS regular rate rhythm, Respiratory lungs clear to auscultation, no respiratory distress, no wheeze, no rhonchi. Gastrointestinal abdomen soft, non tender, bowel sounds audible Extremities no edema. Neuro speech clear, no focal weakness. Objective Data Active Medications Acetaminophen (Acetaminophen 325 Mg Tablet) 650 mg PO Q6H PRN PRN Reason: Pain, Mild (Pain Scale 1-3) Last Admin: 12/24/23 05:03 Dose: 650 mg Documented By: BELLA Al Hydroxide/Mg Hydroxide (Magnesium Hydrox/Alum Hydrox 30 Ml Oral.Susp) 30 ml PO Q6H PRN PRN Reason: GI Upset Last Admin: 11/19/23 19:16 Dose: 30 ml Documented By: LAMIN Benzocaine (Throat Lozenge, Medicated Lozenge) 1 lozenge MUCOUS MEM Q2H PRN PRN Reason: Sore Throat Last Admin: 12/10/23 08:25 Dose: 1 lozenge Documented By: CHAS Benzonatate (Benzonatate 100 Mg Capsule) 100 mg PO TID PRN PRN Reason: Cough Buprenorphine/Naloxone (Buprenorphine/Naloxone 8/2 Mg Film) 1 film SUBLINGUAL BID [facility] Last Admin: 12/24/23 08:34 Dose: 1 film Documented By: JOSEPH Divalproex Sodium (Divalproex Sodium 250 Mg Tablet.Dr) 250 mg PO TID [facility] Last Admin: 12/24/23 08:21 Dose: 250 mg Documented By: JOSEPH Docusate Sodium (Docusate Sodium 100 Mg Capsule) 100 mg PO DAILY PRN PRN Reason: Constipation Lidocaine (Lidocaine 4 % Patch Adh..Patch) 1 patch TRANSDERMA DAILY [facility]; Protocol Last Admin: 12/24/23 08:22 Dose: 1 patch Documented By: JOSEPH Multivitamins/Vitamin C (Multivitamin Tablet) 1 tab PO DAILY [facility] Last Admin: 12/24/23 08:20 Dose: 1 tab Documented By: JOSEPH Nicotine Polacrilex (Nicotine Polacrilex 2 Mg Gum) 4 mg BUCCAL Q2H PRN PRN Reason: nicotine addiction Last Admin: 12/24/23 08:20 Dose: 4 mg Documented By: JOSEPH Olanzapine (Olanzapine 10 Mg Vial) 5 mg IM DAILY PRN PRN Reason: severe agitation Ondansetron HCl (Ondansetron Hcl 4 Mg/2 Ml Vial) 4 mg IVPUSH Q8H PRN PRN Reason: Nausea and Vomiting Ondansetron HCl (Ondansetron Odt 4 Mg Tab.Rapdis) 4 mg TRANSLINGU Q6H PRN PRN Reason: Nausea and Vomiting Last Admin: 12/01/23 23:36 Dose: 4 mg Documented By: JOE Risperidone (Risperidone 1 Mg Tablet) 1 mg PO BID [facility] Last Admin: 12/24/23 08:20 Dose: 1 mg Documented By: JOSEPH Labs 12/04/23 10:41 12/19/23 05:28 Assessment and Plan (1) Alcoholic Korsakoff syndrome: Status: Acute Plan Pt is a 48-year-old female with a PMH significant for opioid use disorder on Suboxone, alcohol use disorder, and Korsakoff's syndrome? who initially presented to the ED on?09/19/2023 looking for her Clement that she had not seen for a few days. Pt apparently had heard he was at this hospital so she called an ambulance to bring her here. Pt will be admitted to the hospital while awaiting guardianship and LTC placement. Guardianship hearing is scheduled for 10/09/2023. 1.Alcohol Korsakoff's syndrome Continue Depakote and risperidone no behavioral issues noted, continue as needed Zyprexa 2.Opioid use disorder Continue Suboxone 3. Tobacco use disorder continue Nicorette gum 4. Acute hyponatremia noted on 12/03 resolved, due to excessive fluid intake liberalize fluid intake to 2000 mL and repeat labs in 1 week 12/25 Full Code Pt ambulatory. Dispo: sister Conchis [phone] on 12/17 was called and updated her about patient's current medications, clinical condition and diagnosis. She will discuss with her other sister Samantha and get back to us if she is willing to take her home Pt will require hospitalization, pending guardianship and safe placement. Quality Stroke Does the patient have a stroke diagnosis?: No VTE Prior VTE?: No VTE Risk Level:: Medical - low VTE Device Contraindication: Treatment Not Indicated VTE Drug Contraindication: Treatment Not Indicated
--- NOTE | 2023-12-24 14:01 | MHC.CM.PN ---
CM PLACED CALL TO [facility] TO INQUIRE ABOUT OPEN FEMALE BEDS FOR LTC PLACEMENT.
--- NOTE | 2023-12-24 14:03 | MHC.CM.PN ---
CM PLACED CALL TO [facility] LIAISON TIFFANIE MARRUFO TO INQUIRE ABOUT ANY FEMALE BED AVAILABILITY , AWAITING RETURN CALL OR CORRESPONDENCE IN [facility]
[2023-12-24 15:04] VITALS: BP 107/56; PULSE 56; RESP 18; TEMP 36.5; O2SAT 94
--- NOTE | 2023-12-24 15:54 | MHC.CM.PN ---
A call was received from Lisset Gooden post adoption coordinator: [facility] (Aquired brain injury program). Senior services referred the patient to the program. Lisset asked if Bud was in a psych bed or Acute bed. She was informed that Bud is on a med surg unit; but has been ready for discharge. Lisset stated that she will let case management know the out come of the application. Lisset Gooden [phone]. She would like to know outcome of Psych evaluation that was ordered today.
[2023-12-24 19:37] VITALS: BP 99/57; PULSE 57; RESP 18; TEMP 36.2; O2SAT 96
[2023-12-25] MEDS: Nicotine Polacrilex 2 MG GUM 4 MG BUCCAL ×5 (02:40→23:47)
[2023-12-25] MEDS: Acetaminophen 325 MG TABLET 650 MG PO (02:40)
[2023-12-25 08:00] VITALS: BP 98/56; PULSE 52; RESP 17; TEMP 36.4; O2SAT 96
[2023-12-25] MEDS: Lidocaine 4 % Patch ADH..PATCH 1 PATCH TRANSDERMA (08:42)
[2023-12-25] MEDS: risperiDONE 1 MG TABLET PO ×2 (08:42→21:19)
[2023-12-25] MEDS: Buprenorphine/Naloxone 8/2 mg FILM 1 FILM SUBLINGUAL ×2 (08:42→21:21)
[2023-12-25] MEDS: Multivitamin TABLET 1 TAB PO (08:42)
[2023-12-25] MEDS: Divalproex Sodium 250 MG TABLET.DR PO ×3 (08:42→21:19)
--- NOTE | 2023-12-25 11:20 | PC.NURSE ---
No behavioral issues with Bud, always cooperative polite and easy to redirect .
--- NOTE | 2023-12-25 12:39 | P.PNIM_ITS ---
Subjective Subjective Date of Service: 12/25/23 Interval History: No acute issues overnight, resting comfortably tolerating diet, ambulating in room, offers no acute complaints. Review of Systems All other system reviewed and negative. Physical Exam 2 Vital Signs: Vital Signs: Last Vital Signs Temp 97.5 F 12/25/23 08:00 Pulse 52 12/25/23 08:00 Resp 17 12/25/23 08:00 BP 98/56 L 12/25/23 08:00 Pulse Ox 96 12/25/23 08:00 O2 Del Method Room Air 12/25/23 08:00 O2 Flow Rate 3 10/05/23 16:00 BMI result Body Mass Index 22.7 Const: Other: General awake alert, in no acute distress. Neck supple, no JVD. CVS regular rate rhythm, Respiratory lungs clear to auscultation, no respiratory distress, no wheeze, no rhonchi. Gastrointestinal abdomen soft, non tender, bowel sounds audible. Extremities no edema. Neuro speech clear, no focal weakness. Psych impaired insight. Objective Data Active Medications Acetaminophen (Acetaminophen 325 Mg Tablet) 650 mg PO Q6H PRN PRN Reason: Pain, Mild (Pain Scale 1-3) Last Admin: 12/25/23 02:40 Dose: 650 mg Documented By: MAICO Al Hydroxide/Mg Hydroxide (Magnesium Hydrox/Alum Hydrox 30 Ml Oral.Susp) 30 ml PO Q6H PRN PRN Reason: GI Upset Last Admin: 11/19/23 19:16 Dose: 30 ml Documented By: LAMIN Benzocaine (Throat Lozenge, Medicated Lozenge) 1 lozenge MUCOUS MEM Q2H PRN PRN Reason: Sore Throat Last Admin: 12/10/23 08:25 Dose: 1 lozenge Documented By: CHAS Benzonatate (Benzonatate 100 Mg Capsule) 100 mg PO TID PRN PRN Reason: Cough Buprenorphine/Naloxone (Buprenorphine/Naloxone 8/2 Mg Film) 1 film SUBLINGUAL BID [facility] Last Admin: 12/25/23 08:42 Dose: 1 film Documented By: JOSEPH Divalproex Sodium (Divalproex Sodium 250 Mg Tablet.) 250 mg PO TID [facility] Last Admin: 12/25/23 08:42 Dose: 250 mg Documented By: JOSEPH Docusate Sodium (Docusate Sodium 100 Mg Capsule) 100 mg PO DAILY PRN PRN Reason: Constipation Lidocaine (Lidocaine 4 % Patch Adh..Patch) 1 patch TRANSDERMA DAILY [facility]; Protocol Last Admin: 12/25/23 08:42 Dose: 1 patch Documented By: JOSEPH Multivitamins/Vitamin C (Multivitamin Tablet) 1 tab PO DAILY [facility] Last Admin: 12/25/23 08:42 Dose: 1 tab Documented By: JOSEPH Nicotine Polacrilex (Nicotine Polacrilex 2 Mg Gum) 4 mg BUCCAL Q2H PRN PRN Reason: nicotine addiction Last Admin: 12/25/23 08:42 Dose: 4 mg Documented By: JOSEPH Olanzapine (Olanzapine 10 Mg Vial) 5 mg IM DAILY PRN PRN Reason: severe agitation Ondansetron HCl (Ondansetron Hcl 4 Mg/2 Ml Vial) 4 mg IVPUSH Q8H PRN PRN Reason: Nausea and Vomiting Ondansetron HCl (Ondansetron Odt 4 Mg Tab.Rapdis) 4 mg TRANSLINGU Q6H PRN PRN Reason: Nausea and Vomiting Last Admin: 12/01/23 23:36 Dose: 4 mg Documented By: JOE Risperidone (Risperidone 1 Mg Tablet) 1 mg PO BID [facility] Last Admin: 12/25/23 08:42 Dose: 1 mg Documented By: JOSEPH Labs 12/04/23 10:41 12/19/23 05:28 Assessment and Plan (1) Alcoholic Korsakoff syndrome: Status: Acute Plan Pt is a 48-year-old female with a PMH significant for opioid use disorder on Suboxone, alcohol use disorder, and Korsakoff's syndrome? who initially presented to the ED on?09/19/2023 looking for her Clement that she had not seen for a few days. Pt apparently had heard he was at this hospital so she called an ambulance to bring her here. Pt will be admitted to the hospital while awaiting guardianship and LTC placement. Guardianship hearing is scheduled for 10/09/2023. 1.Alcohol Korsakoff's syndrome Continue Depakote and risperidone no behavioral issues noted, continue as needed Zyprexa Case discussed with Psychiatry due to underlying Korsakoff's, patient will require supervision 2.Opioid use disorder Continue Suboxone 3. Tobacco use disorder continue Nicorette gum 4. Acute hyponatremia noted on 12/03 resolved, due to excessive fluid intake liberalize fluid intake to 2000 mL and repeat labs in 1 week 12/25 Full Code Pt ambulatory. Dispo: Pt will require hospitalization, patient has a guardian, pending safe placement to long-term care. Quality Stroke Does the patient have a stroke diagnosis?: No VTE Prior VTE?: No VTE Risk Level:: Medical - low VTE Device Contraindication: Treatment Not Indicated VTE Drug Contraindication: Treatment Not Indicated
--- NOTE | 2023-12-25 14:34 | MHC.CM.PN ---
The Psych eval has been cancelled. Per Psychiatrist, Bud will always need supervision. [facility] program director/morning show host, Lisset Gooden has been updated. She has been notified that a bed offer has been received from [facility]. She stated that the program can not accept pts from the Acute hospital setting; however they can accept from facilities like [facility]. She will follow up with the patient in [place]. Patient will discharge to [facility] pending insurance authorization. CM will follow for auth.
[2023-12-25 15:40] VITALS: BP 108/55; PULSE 62; RESP 18; TEMP 36.6; O2SAT 97
[2023-12-25 19:21] VITALS: BP 114/58; PULSE 66; RESP 18; TEMP 36.4; O2SAT 96
[2023-12-26 02:58] VITALS: BP 104/56; PULSE 54; RESP 18; TEMP 36.3; O2SAT 96
[2023-12-26] MEDS: Nicotine Polacrilex 2 MG GUM 4 MG BUCCAL ×5 (03:05→19:47)
[2023-12-26 08:00] VITALS: BP 104/74; PULSE 61; RESP 14; TEMP 36.4; O2SAT 97
[2023-12-26] MEDS: Divalproex Sodium 250 MG TABLET.DR PO ×3 (08:59→21:14)
[2023-12-26] MEDS: risperiDONE 1 MG TABLET PO ×2 (08:59→21:15)
[2023-12-26] MEDS: Buprenorphine/Naloxone 8/2 mg FILM 1 FILM SUBLINGUAL ×2 (08:59→21:15)
[2023-12-26] MEDS: Multivitamin TABLET 1 TAB PO (08:59)
[2023-12-26] MEDS: Lidocaine 4 % Patch ADH..PATCH 1 PATCH TRANSDERMA (09:00)
--- NOTE | 2023-12-26 11:09 | MHC.CM.PN ---
Addendum entered by Natalie Kemp 12/26/23 11:52: A call was placed to Anamika Wallace @ [facility]. Anamika understands that the renewal for guardianship is 01/09/24. She will have the Liason review the patient. She was also invited to come in to meet with the patient. [facility] is much closer to the pts family. [facility] and sister facilities [facility] are all following for renewed Guardianship and bed availability. Original Note: [facility] is not able to accept the patient today. The renewal date for the Guardianship[facility] is 01/07/24. The court date is too soon , per Liason Romina Mayorga; which means that, They can not accept it. Request for transfer 01/08/24. The response is pending. CM will follow for placement.
--- NOTE | 2023-12-26 13:45 | HO.PM.IMPN ---
Subjective Subjective Date of Service: 12/26/23 Interval History: Being followed for placement Offers no acute complaints, tolerating diet, ambulating in hallways with aid unsteady gait. Review of Systems All other system reviewed and negative. Physical Exam Vital Signs: Vital Signs: Last Vital Signs Temp 97.6 F 12/26/23 08:00 Pulse 61 12/26/23 08:00 Resp 14 12/26/23 08:00 BP 104/74 12/26/23 08:00 Pulse Ox 97 12/26/23 08:00 O2 Del Method Room Air 12/26/23 08:00 O2 Flow Rate 3 10/05/23 16:00 BMI result Body Mass Index 22.7 Const: Other: General awake alert, in no acute distress. Neck supple, no JVD. CVS regular rate rhythm, Respiratory lungs clear to auscultation, no respiratory distress, no wheeze, no rhonchi. Gastrointestinal abdomen soft, non tender, bowel sounds audible. Extremities no edema. Neuro speech clear, no focal weakness. Psych impaired insight. Objective Data Active Medications Acetaminophen (Acetaminophen 325 Mg Tablet) 650 mg PO Q6H PRN PRN Reason: Pain, Mild (Pain Scale 1-3) Last Admin: 12/25/23 02:40 Dose: 650 mg Documented By: MAICO Al Hydroxide/Mg Hydroxide (Magnesium Hydrox/Alum Hydrox 30 Ml Oral.Susp) 30 ml PO Q6H PRN PRN Reason: GI Upset Last Admin: 11/19/23 19:16 Dose: 30 ml Documented By: LAMIN Benzocaine (Throat Lozenge, Medicated Lozenge) 1 lozenge MUCOUS MEM Q2H PRN PRN Reason: Sore Throat Last Admin: 12/10/23 08:25 Dose: 1 lozenge Documented By: CHAS Benzonatate (Benzonatate 100 Mg Capsule) 100 mg PO TID PRN PRN Reason: Cough Buprenorphine/Naloxone (Buprenorphine/Naloxone 8/2 Mg Film) 1 film SUBLINGUAL BID [facility] Last Admin: 12/26/23 08:59 Dose: 1 film Documented By: SHERRON Divalproex Sodium (Divalproex Sodium 250 Mg Tablet.) 250 mg PO TID [facility] Last Admin: 12/26/23 08:59 Dose: 250 mg Documented By: SHERRON Docusate Sodium (Docusate Sodium 100 Mg Capsule) 100 mg PO DAILY PRN PRN Reason: Constipation Lidocaine (Lidocaine 4 % Patch Adh..Patch) 1 patch TRANSDERMA DAILY [facility]; Protocol Last Admin: 12/26/23 09:00 Dose: 1 patch Documented By: SHERRON Nicotine Polacrilex (Nicotine Polacrilex 2 Mg Gum) 4 mg BUCCAL Q2H PRN PRN Reason: nicotine addiction Last Admin: 12/26/23 10:55 Dose: 4 mg Documented By: SHERRON Olanzapine (Olanzapine 10 Mg Vial) 5 mg IM DAILY PRN PRN Reason: severe agitation Ondansetron HCl (Ondansetron Hcl 4 Mg/2 Ml Vial) 4 mg IVPUSH Q8H PRN PRN Reason: Nausea and Vomiting Ondansetron HCl (Ondansetron Odt 4 Mg Tab.Rapdis) 4 mg TRANSLINGU Q6H PRN PRN Reason: Nausea and Vomiting Last Admin: 12/01/23 23:36 Dose: 4 mg Documented By: JOE Risperidone (Risperidone 1 Mg Tablet) 1 mg PO BID [facility] Last Admin: 12/26/23 08:59 Dose: 1 mg Documented By: SHERRON Labs 12/04/23 10:41 12/19/23 05:28 Assessment and Plan (1) Alcoholic Korsakoff syndrome: Status: Acute Plan Pt is a 48-year-old female with a PMH significant for opioid use disorder on Suboxone, alcohol use disorder, and Korsakoff's syndrome? who initially presented to the ED on?09/19/2023 looking for her Clement that she had not seen for a few days. Pt apparently had heard he was at this hospital so she called an ambulance to bring her here. Pt will be admitted to the hospital while awaiting guardianship and LTC placement. Guardianship hearing is scheduled for 10/09/2023. 1.Alcohol Korsakoff's syndrome Continue Depakote and risperidone no behavioral issues noted, continue as needed Zyprexa Case discussed with Psychiatry due to underlying Korsakoff's, patient will require continued 24 h supervision. 2.Opioid use disorder Continue Suboxone 3. Tobacco use disorder continue Nicorette gum 4. Acute hyponatremia noted on 12/03 resolved, due to excessive fluid intake liberalize fluid intake to 2000 mL and repeat labs in 1 week / Full Code Pt ambulatory. Dispo: Pt will require hospitalization, patient has a guardian, pending safe placement to long-term care. Quality Stroke Does the patient have a stroke diagnosis?: No VTE Prior VTE?: No VTE Risk Level:: Medical - low VTE Device Contraindication: Treatment Not Indicated VTE Drug Contraindication: Treatment Not Indicated
[2023-12-26 15:21] VITALS: BP 107/54; PULSE 56; RESP 18; TEMP 36.2; O2SAT 96
[2023-12-26 19:11] VITALS: BP 112/55; PULSE 59; RESP 18; TEMP 36.2; O2SAT 99
[2023-12-27 03:15] VITALS: BP 104/61; PULSE 57; RESP 16; TEMP 36.2; O2SAT 98
[2023-12-27 08:00] VITALS: BP 109/59; PULSE 60; RESP 18; TEMP 36.6; O2SAT 98
[2023-12-27] MEDS: Divalproex Sodium 250 MG TABLET.DR PO ×3 (08:25→21:12)
[2023-12-27] MEDS: risperiDONE 1 MG TABLET PO ×2 (08:25→21:12)
[2023-12-27] MEDS: Nicotine Polacrilex 2 MG GUM 4 MG BUCCAL ×5 (08:25→21:12)
[2023-12-27] MEDS: Lidocaine 4 % Patch ADH..PATCH 1 PATCH TRANSDERMA (08:26)
[2023-12-27] MEDS: Buprenorphine/Naloxone 8/2 mg FILM 1 FILM SUBLINGUAL ×2 (08:30→21:11)
--- NOTE | 2023-12-27 11:06 | HO.PM.IMPN ---
Subjective Subjective Date of Service: 12/27/23 Interval History: Complaining of headache this morning, no behavioral issues, no acute issues overnight, tolerating diet no nausea, no vomiting, no abdominal pain. Review of Systems All other system reviewed and negative. Physical Exam Vital Signs: Vital Signs: Last Vital Signs Temp 97.8 F 12/27/23 08:00 Pulse 60 12/27/23 08:00 Resp 18 12/27/23 08:00 BP 109/59 L 12/27/23 08:00 Pulse Ox 98 12/27/23 08:00 O2 Del Method Room Air 12/27/23 08:00 O2 Flow Rate 3 10/05/23 16:00 BMI result Body Mass Index 22.7 Const: Other: General awake alert, in no acute distress. Neck supple, no JVD. CVS regular rate rhythm, Respiratory lungs clear to auscultation, no respiratory distress, no wheeze, no rhonchi. Gastrointestinal abdomen soft, non tender, bowel sounds audible. Extremities no edema. Neuro speech clear, no focal weakness. Psych impaired insight. Objective Data Active Medications Acetaminophen (Acetaminophen 325 Mg Tablet) 650 mg PO Q6H PRN PRN Reason: Pain, Mild (Pain Scale 1-3) Last Admin: 12/25/23 02:40 Dose: 650 mg Documented By: MAICO Al Hydroxide/Mg Hydroxide (Magnesium Hydrox/Alum Hydrox 30 Ml Oral.Susp) 30 ml PO Q6H PRN PRN Reason: GI Upset Last Admin: 11/19/23 19:16 Dose: 30 ml Documented By: LAMIN Benzocaine (Throat Lozenge, Medicated Lozenge) 1 lozenge MUCOUS MEM Q2H PRN PRN Reason: Sore Throat Last Admin: 12/10/23 08:25 Dose: 1 lozenge Documented By: CHAS Benzonatate (Benzonatate 100 Mg Capsule) 100 mg PO TID PRN PRN Reason: Cough Buprenorphine/Naloxone (Buprenorphine/Naloxone 8/2 Mg Film) 1 film SUBLINGUAL BID [facility] Last Admin: 12/27/23 08:30 Dose: 1 film Documented By: SHERRON Divalproex Sodium (Divalproex Sodium 250 Mg Tablet.Dr) 250 mg PO TID [facility] Last Admin: 12/27/23 08:25 Dose: 250 mg Documented By: SHERRON Docusate Sodium (Docusate Sodium 100 Mg Capsule) 100 mg PO DAILY PRN PRN Reason: Constipation Lidocaine (Lidocaine 4 % Patch Adh..Patch) 1 patch TRANSDERMA DAILY [facility]; Protocol Last Admin: 12/27/23 08:26 Dose: 1 patch Documented By: SHERRON Nicotine Polacrilex (Nicotine Polacrilex 2 Mg Gum) 4 mg BUCCAL Q2H PRN PRN Reason: nicotine addiction Last Admin: 12/27/23 10:54 Dose: 4 mg Documented By: SHERRON Olanzapine (Olanzapine 10 Mg Vial) 5 mg IM DAILY PRN PRN Reason: severe agitation Ondansetron HCl (Ondansetron Hcl 4 Mg/2 Ml Vial) 4 mg IVPUSH Q8H PRN PRN Reason: Nausea and Vomiting Ondansetron HCl (Ondansetron Odt 4 Mg Tab.Rapdis) 4 mg TRANSLINGU Q6H PRN PRN Reason: Nausea and Vomiting Last Admin: 12/01/23 23:36 Dose: 4 mg Documented By: JOE Risperidone (Risperidone 1 Mg Tablet) 1 mg PO BID [facility] Last Admin: 12/27/23 08:25 Dose: 1 mg Documented By: SHERRON Labs 12/04/23 10:41 12/19/23 05:28 Assessment and Plan (1) Alcoholic Korsakoff syndrome: Status: Acute Plan Pt is a 48-year-old female with a PMH significant for opioid use disorder on Suboxone, alcohol use disorder, and Korsakoff's syndrome? who initially presented to the ED on?09/19/2023 looking for her Clement that she had not seen for a few days. Pt apparently had heard he was at this hospital so she called an ambulance to bring her here. Pt will be admitted to the hospital while awaiting guardianship and LTC placement. Guardianship hearing is scheduled for 10/09/2023. 1.Alcohol Korsakoff's syndrome Continue Depakote and risperidone no behavioral issues noted, continue as needed Zyprexa Case discussed with Psychiatry due to underlying Korsakoff's, patient will require continued 24 h supervision. Will give Tylenol for headache. 2.Opioid use disorder Continue Suboxone 3. Tobacco use disorder continue Nicorette gum 4. Acute hyponatremia noted on 12/03 resolved, due to excessive fluid intake liberalize fluid intake to 2000 mL and repeat labs pending today Full Code Pt ambulatory. Dispo: Pt will require hospitalization, patient has a guardian, pending safe placement to long-term care. Quality Stroke Does the patient have a stroke diagnosis?: No VTE Prior VTE?: No VTE Risk Level:: Medical - low VTE Device Contraindication: Treatment Not Indicated VTE Drug Contraindication: Treatment Not Indicated
[2023-12-27] MEDS: Acetaminophen 325 MG TABLET 650 MG PO ×2 (11:14→21:11)
[2023-12-27 13:19] LABS: Anion Gap 12 (12-20); Blood Urea Nitrogen 16 mg/dL (9-16); Calcium 9.6 mg/dL (8.4-10.2); Carbon Dioxide 29 mmol/L (22-29); Chloride 103 mmol/L (96-108); Creatinine Clr Calc Pharmacy 65.8; Estimated Glomerular Filt Rate > 60; Glucose Random 92 mg/dL (60-115); Potassium 4.2 mmol/L (3.3-5.1); Sodium 140 mmol/L (135-145)
--- NOTE | 2023-12-27 14:41 | MHC.CM.PN ---
No discharge today. Clinical update sent. [facility] or [facility] >01/09/24; which is the court date for renewal of guardianship. via BLS.
[2023-12-27 15:11] VITALS: BP 106/53; PULSE 58; RESP 18; TEMP 36.1; O2SAT 97
[2023-12-27 19:20] VITALS: BP 98/55; PULSE 58; RESP 14; TEMP 36.3; O2SAT 93
[2023-12-28 03:16] VITALS: BP 116/69; PULSE 56; RESP 14; TEMP 36.2; O2SAT 96
[2023-12-28 07:31] VITALS: BP 90/52; PULSE 54; RESP 14; TEMP 36.2; O2SAT 98
[2023-12-28] MEDS: Nicotine Polacrilex 2 MG GUM 4 MG BUCCAL ×4 (07:48→20:11)
[2023-12-28] MEDS: risperiDONE 1 MG TABLET PO ×2 (08:36→20:10)
[2023-12-28] MEDS: Lidocaine 4 % Patch ADH..PATCH 1 PATCH TRANSDERMA (08:36)
[2023-12-28] MEDS: Divalproex Sodium 250 MG TABLET.DR PO ×3 (08:36→20:10)
[2023-12-28] MEDS: Buprenorphine/Naloxone 8/2 mg FILM 1 FILM SUBLINGUAL ×2 (08:36→20:10)
--- NOTE | 2023-12-28 11:51 | P.PNIM_ITS ---
Subjective Subjective Date of Service: 12/28/23 Interval History: No acute issues overnight. Behavior baseline Review of Systems Denies chest pain Denies shortness of breath Denies nausea vomiting diarrhea Denies fever chills Physical Exam 2 Vital Signs: Vital Signs: Last Vital Signs Temp 97.2 F 12/28/23 07:31 Pulse 54 12/28/23 07:31 Resp 14 12/28/23 07:31 BP 90/52 L 12/28/23 07:31 Pulse Ox 98 12/28/23 07:31 O2 Del Method Room Air 12/28/23 07:31 O2 Flow Rate 3 10/05/23 16:00 BMI result Body Mass Index 22.7 Const: Other: Awake alert confused Resp: Other: Clear to auscultation bilaterally no rales rhonchi or wheezes Cardio: Other: No S4; positive S1-S2; no S3 murmurs rubs or gallops GI: Other: Soft nontender nondistended normoactive bowel sounds Extrem: Other: No edema bilaterally Objective Data Active Medications Acetaminophen (Acetaminophen 325 Mg Tablet) 650 mg PO Q6H PRN PRN Reason: Pain, Mild (Pain Scale 1-3) Last Admin: 12/27/23 21:11 Dose: 650 mg Documented By: BELLA Al Hydroxide/Mg Hydroxide (Magnesium Hydrox/Alum Hydrox 30 Ml Oral.Susp) 30 ml PO Q6H PRN PRN Reason: GI Upset Last Admin: 11/19/23 19:16 Dose: 30 ml Documented By: LAMIN Benzocaine (Throat Lozenge, Medicated Lozenge) 1 lozenge MUCOUS MEM Q2H PRN PRN Reason: Sore Throat Last Admin: 12/10/23 08:25 Dose: 1 lozenge Documented By: CHAS Benzonatate (Benzonatate 100 Mg Capsule) 100 mg PO TID PRN PRN Reason: Cough Buprenorphine/Naloxone (Buprenorphine/Naloxone 8/2 Mg Film) 1 film SUBLINGUAL BID [facility] Last Admin: 12/28/23 08:36 Dose: 1 film Documented By: JOSEPH Divalproex Sodium (Divalproex Sodium 250 Mg Tablet.Dr) 250 mg PO TID [facility] Last Admin: 12/28/23 08:36 Dose: 250 mg Documented By: JOSEPH Docusate Sodium (Docusate Sodium 100 Mg Capsule) 100 mg PO DAILY PRN PRN Reason: Constipation Lidocaine (Lidocaine 4 % Patch Adh..Patch) 1 patch TRANSDERMA DAILY [facility]; Protocol Last Admin: 12/28/23 08:36 Dose: 1 patch Documented By: JOSEPH Nicotine Polacrilex (Nicotine Polacrilex 2 Mg Gum) 4 mg BUCCAL Q2H PRN PRN Reason: nicotine addiction Last Admin: 12/28/23 10:49 Dose: 4 mg Documented By: CHAS Olanzapine (Olanzapine 10 Mg Vial) 5 mg IM DAILY PRN PRN Reason: severe agitation Ondansetron HCl (Ondansetron Hcl 4 Mg/2 Ml Vial) 4 mg IVPUSH Q8H PRN PRN Reason: Nausea and Vomiting Ondansetron HCl (Ondansetron Odt 4 Mg Tab.Rapdis) 4 mg TRANSLINGU Q6H PRN PRN Reason: Nausea and Vomiting Last Admin: 12/01/23 23:36 Dose: 4 mg Documented By: JOE Risperidone (Risperidone 1 Mg Tablet) 1 mg PO BID [facility] Last Admin: 12/28/23 08:36 Dose: 1 mg Documented By: JOSEPH Labs 12/04/23 10:41 12/27/23 12:11 Labs: Laboratory Results - last 24 hr 12/27/23 12:11 Anion Gap 12 Estim Creat Clear Calc 65.8 Estimated GFR > 60 Random Glucose 92 Calcium 9.6 Assessment and Plan (1) Alcoholic Korsakoff syndrome: Status: Acute Plan Pt is a 48-year-old female with a PMH significant for opioid use disorder on Suboxone, alcohol use disorder, and Korsakoff's syndrome? who initially presented to the ED on?09/19/2023 looking for her Clement that she had not seen for a few days. Pt apparently had heard he was at this hospital so she called an ambulance to bring her here. Pt will be admitted to the hospital while awaiting guardianship and LTC placement. Guardianship hearing is scheduled for 10/09/2023. 1.Alcohol Korsakoff's syndrome -Continue Seroquel, Depakote -continue to be without aggressive behavior 2.Opioid use disorder -Continue Suboxone Full Code Pt ambulatory. Pt will require a hospitalization pending guardianship and safe placement Quality Stroke Does the patient have a stroke diagnosis?: No VTE Prior VTE?: No VTE Risk Level:: Medical - low VTE Device Contraindication: Treatment Not Indicated VTE Drug Contraindication: Treatment Not Indicated
[2023-12-28] MEDS: Acetaminophen 325 MG TABLET 650 MG PO ×2 (13:49→20:10)
[2023-12-28 14:55] VITALS: BP 99/51; PULSE 59; TEMP 36; O2SAT 96
[2023-12-28 19:58] VITALS: BP 111/61; PULSE 57; RESP 16; TEMP 36.5; O2SAT 98
[2023-12-29 03:29] VITALS: BP 112/64; PULSE 53; RESP 16; TEMP 36; O2SAT 96
[2023-12-29 07:49] VITALS: BP 109/61; PULSE 57; RESP 12; TEMP 36.6; O2SAT 95
[2023-12-29] MEDS: Divalproex Sodium 250 MG TABLET.DR PO ×3 (08:35→20:43)
[2023-12-29] MEDS: Nicotine Polacrilex 2 MG GUM 4 MG BUCCAL ×2 (08:35→16:47)
[2023-12-29] MEDS: Lidocaine 4 % Patch ADH..PATCH 1 PATCH TRANSDERMA (08:35)
[2023-12-29] MEDS: risperiDONE 1 MG TABLET PO ×2 (08:35→20:43)
[2023-12-29] MEDS: Buprenorphine/Naloxone 8/2 mg FILM 1 FILM SUBLINGUAL ×2 (08:35→20:43)
--- NOTE | 2023-12-29 12:33 | HO.PM.IMPN ---
Subjective Subjective Date of Service: 12/29/23 Interval History: No acute issues overnight. Behavior baseline Review of Systems Denies chest pain Denies shortness of breath Denies nausea vomiting diarrhea Denies fever chills Physical Exam Vital Signs: Vital Signs: Last Vital Signs Temp 98 F 12/29/23 07:49 Pulse 57 12/29/23 07:49 Resp 12 12/29/23 07:49 BP 109/61 12/29/23 07:49 Pulse Ox 95 12/29/23 07:49 O2 Del Method Room Air 12/29/23 07:49 O2 Flow Rate 3 10/05/23 16:00 BMI result Body Mass Index 22.7 Const: Other: Awake alert confused Resp: Other: Clear to auscultation bilaterally no rales rhonchi or wheezes Cardio: Other: No S4; positive S1-S2; no S3 murmurs rubs or gallops GI: Other: Soft nontender nondistended normoactive bowel sounds Extrem: Other: No edema bilaterally Objective Data Active Medications Acetaminophen (Acetaminophen 325 Mg Tablet) 650 mg PO Q6H PRN PRN Reason: Pain, Mild (Pain Scale 1-3) Last Admin: 12/28/23 20:10 Dose: 650 mg Documented By: REE Al Hydroxide/Mg Hydroxide (Magnesium Hydrox/Alum Hydrox 30 Ml Oral.Susp) 30 ml PO Q6H PRN PRN Reason: GI Upset Last Admin: 11/19/23 19:16 Dose: 30 ml Documented By: LAMIN Benzocaine (Throat Lozenge, Medicated Lozenge) 1 lozenge MUCOUS MEM Q2H PRN PRN Reason: Sore Throat Last Admin: 12/10/23 08:25 Dose: 1 lozenge Documented By: CHAS Benzonatate (Benzonatate 100 Mg Capsule) 100 mg PO TID PRN PRN Reason: Cough Buprenorphine/Naloxone (Buprenorphine/Naloxone 8/2 Mg Film) 1 film SUBLINGUAL BID [facility] Last Admin: 12/29/23 08:35 Dose: 1 film Documented By: JOSEPH Divalproex Sodium (Divalproex Sodium 250 Mg Tablet.Dr) 250 mg PO TID [facility] Last Admin: 12/29/23 08:35 Dose: 250 mg Documented By: JOSEPH Docusate Sodium (Docusate Sodium 100 Mg Capsule) 100 mg PO DAILY PRN PRN Reason: Constipation Lidocaine (Lidocaine 4 % Patch Adh..Patch) 1 patch TRANSDERMA DAILY [facility]; Protocol Last Admin: 12/29/23 08:35 Dose: 1 patch Documented By: JOSEPH Nicotine Polacrilex (Nicotine Polacrilex 2 Mg Gum) 4 mg BUCCAL Q2H PRN PRN Reason: nicotine addiction Last Admin: 12/29/23 08:35 Dose: 4 mg Documented By: JOSEPH Olanzapine (Olanzapine 10 Mg Vial) 5 mg IM DAILY PRN PRN Reason: severe agitation Ondansetron HCl (Ondansetron Hcl 4 Mg/2 Ml Vial) 4 mg IVPUSH Q8H PRN PRN Reason: Nausea and Vomiting Ondansetron HCl (Ondansetron Odt 4 Mg Tab.Rapdis) 4 mg TRANSLINGU Q6H PRN PRN Reason: Nausea and Vomiting Last Admin: 12/01/23 23:36 Dose: 4 mg Documented By: JOE Risperidone (Risperidone 1 Mg Tablet) 1 mg PO BID [facility] Last Admin: 12/29/23 08:35 Dose: 1 mg Documented By: JOSEPH Labs 12/04/23 10:41 12/27/23 12:11 Assessment and Plan (1) Alcoholic Korsakoff syndrome: Status: Acute Plan Pt is a 48-year-old female with a PMH significant for opioid use disorder on Suboxone, alcohol use disorder, and Korsakoff's syndrome? who initially presented to the ED on?09/19/2023 looking for her Clement that she had not seen for a few days. Pt apparently had heard he was at this hospital so she called an ambulance to bring her here. Pt will be admitted to the hospital while awaiting guardianship and LTC placement. Guardianship hearing is scheduled for 10/09/2023. 1.Alcohol Korsakoff's syndrome -Continue Seroquel, Depakote -continue to be without aggressive behavior 2.Opioid use disorder -Continue Suboxone Full Code Pt ambulatory. Pt will require a hospitalization pending guardianship and safe placement Quality Stroke Does the patient have a stroke diagnosis?: No VTE Prior VTE?: No VTE Risk Level:: Medical - low VTE Device Contraindication: Treatment Not Indicated VTE Drug Contraindication: Treatment Not Indicated
[2023-12-29 15:21] VITALS: BP 94/51; PULSE 55; RESP 12; O2SAT 96
[2023-12-29] MEDS: Acetaminophen 325 MG TABLET 650 MG PO (16:46)
[2023-12-29 20:00] VITALS: BP 97/54; PULSE 60; RESP 20; TEMP 36.3; O2SAT 96
[2023-12-30 03:47] VITALS: BP 84/50; PULSE 65; RESP 20; TEMP 36.2; O2SAT 94
[2023-12-30 07:11] VITALS: BP 100/55; PULSE 54; RESP 16; TEMP 36.7; O2SAT 98
[2023-12-30] MEDS: Nicotine Polacrilex 2 MG GUM 4 MG BUCCAL ×4 (08:33→20:04)
[2023-12-30] MEDS: Acetaminophen 325 MG TABLET 650 MG PO ×2 (08:33→15:37)
[2023-12-30] MEDS: Buprenorphine/Naloxone 8/2 mg FILM 1 FILM SUBLINGUAL ×2 (08:33→20:58)
[2023-12-30] MEDS: risperiDONE 1 MG TABLET PO ×2 (08:33→20:58)
[2023-12-30] MEDS: Divalproex Sodium 250 MG TABLET.DR PO ×3 (08:34→20:57)
[2023-12-30] MEDS: Lidocaine 4 % Patch ADH..PATCH 1 PATCH TRANSDERMA (08:34)
--- NOTE | 2023-12-30 12:14 | P.PNIM_ITS ---
Subjective Subjective Date of Service: 12/30/23 Interval History: No acute issues overnight. Behavior baseline Review of Systems Denies chest pain Denies shortness of breath Denies nausea vomiting diarrhea Denies fever chills Physical Exam 2 Vital Signs: Vital Signs: Last Vital Signs Temp 98.1 F 12/30/23 07:11 Pulse 54 12/30/23 07:11 Resp 16 12/30/23 07:11 BP 100/55 L 12/30/23 07:11 Pulse Ox 98 12/30/23 07:11 O2 Del Method Room Air 12/30/23 07:11 O2 Flow Rate 3 10/05/23 16:00 BMI result Body Mass Index 22.7 Const: Other: Awake alert confused Resp: Other: Clear to auscultation bilaterally no rales rhonchi or wheezes Cardio: Other: No S4; positive S1-S2; no S3 murmurs rubs or gallops GI: Other: Soft nontender nondistended normoactive bowel sounds Extrem: Other: No edema bilaterally Objective Data Active Medications Acetaminophen (Acetaminophen 325 Mg Tablet) 650 mg PO Q6H PRN PRN Reason: Pain, Mild (Pain Scale 1-3) Last Admin: 12/30/23 08:33 Dose: 650 mg Documented By: SILVESTRE Al Hydroxide/Mg Hydroxide (Magnesium Hydrox/Alum Hydrox 30 Ml Oral.Susp) 30 ml PO Q6H PRN PRN Reason: GI Upset Last Admin: 11/19/23 19:16 Dose: 30 ml Documented By: LAMIN Benzocaine (Throat Lozenge, Medicated Lozenge) 1 lozenge MUCOUS MEM Q2H PRN PRN Reason: Sore Throat Last Admin: 12/10/23 08:25 Dose: 1 lozenge Documented By: CHAS Benzonatate (Benzonatate 100 Mg Capsule) 100 mg PO TID PRN PRN Reason: Cough Buprenorphine/Naloxone (Buprenorphine/Naloxone 8/2 Mg Film) 1 film SUBLINGUAL BID [facility] Last Admin: 12/30/23 08:33 Dose: 1 film Documented By: SILVESTRE Divalproex Sodium (Divalproex Sodium 250 Mg Tablet.Dr) 250 mg PO TID [facility] Last Admin: 12/30/23 08:34 Dose: 250 mg Documented By: SILVESTRE Docusate Sodium (Docusate Sodium 100 Mg Capsule) 100 mg PO DAILY PRN PRN Reason: Constipation Lidocaine (Lidocaine 4 % Patch Adh..Patch) 1 patch TRANSDERMA DAILY [facility]; Protocol Last Admin: 12/30/23 08:34 Dose: 1 patch Documented By: SILVESTRE Nicotine Polacrilex (Nicotine Polacrilex 2 Mg Gum) 4 mg BUCCAL Q2H PRN PRN Reason: nicotine addiction Last Admin: 12/30/23 08:33 Dose: 4 mg Documented By: SILVESTRE Olanzapine (Olanzapine 10 Mg Vial) 5 mg IM DAILY PRN PRN Reason: severe agitation Ondansetron HCl (Ondansetron Hcl 4 Mg/2 Ml Vial) 4 mg IVPUSH Q8H PRN PRN Reason: Nausea and Vomiting Ondansetron HCl (Ondansetron Odt 4 Mg Tab.Rapdis) 4 mg TRANSLINGU Q6H PRN PRN Reason: Nausea and Vomiting Last Admin: 12/01/23 23:36 Dose: 4 mg Documented By: JOE Risperidone (Risperidone 1 Mg Tablet) 1 mg PO BID [facility] Last Admin: 12/30/23 08:33 Dose: 1 mg Documented By: SILVESTRE Labs 12/04/23 10:41 12/27/23 12:11 Assessment and Plan (1) Alcoholic Korsakoff syndrome: Status: Acute Plan Pt is a 48-year-old female with a PMH significant for opioid use disorder on Suboxone, alcohol use disorder, and Korsakoff's syndrome? who initially presented to the ED on?09/19/2023 looking for her Clement that she had not seen for a few days. Pt apparently had heard he was at this hospital so she called an ambulance to bring her here. Pt will be admitted to the hospital while awaiting guardianship and LTC placement. Guardianship hearing is scheduled for 10/09/2023. 1.Alcohol Korsakoff's syndrome -Continue Seroquel, Depakote -continue to be without aggressive behavior 2.Opioid use disorder -Continue Suboxone Full Code Pt ambulatory. Pt will require a hospitalization pending guardianship and safe placement Quality Stroke Does the patient have a stroke diagnosis?: No VTE Prior VTE?: No VTE Risk Level:: Medical - low VTE Device Contraindication: Treatment Not Indicated VTE Drug Contraindication: Treatment Not Indicated
--- NOTE | 2023-12-30 13:19 | MHC.CM.PN ---
pt continues to be followed by [facility] pts guardianship needs to be uodated court date is for 01/08 after which emil mosquera
[2023-12-30 15:24] VITALS: BP 101/58; PULSE 63; RESP 18; TEMP 36.1; O2SAT 95
[2023-12-30 19:29] VITALS: BP 118/70; PULSE 61; RESP 18; TEMP 36.6; O2SAT 96
[2023-12-31] MEDS: Nicotine Polacrilex 2 MG GUM 4 MG BUCCAL ×6 (00:26→17:49)
[2023-12-31 03:22] VITALS: BP 134/68; PULSE 67; RESP 18; TEMP 36.2; O2SAT 97
[2023-12-31 06:42] VITALS: BP 120/64; PULSE 67; RESP 16; TEMP 36.6; O2SAT 99
[2023-12-31] MEDS: Divalproex Sodium 250 MG TABLET.DR PO ×3 (08:36→21:02)
[2023-12-31] MEDS: Lidocaine 4 % Patch ADH..PATCH 1 PATCH TRANSDERMA (08:36)
[2023-12-31] MEDS: risperiDONE 1 MG TABLET PO (08:36)
[2023-12-31] MEDS: Acetaminophen 325 MG TABLET 650 MG PO ×2 (08:36→14:36)
[2023-12-31] MEDS: Buprenorphine/Naloxone 8/2 mg FILM 1 FILM SUBLINGUAL ×2 (08:38→21:03)
--- NOTE | 2023-12-31 11:20 | P.PNIM_ITS ---
Subjective Subjective Date of Service: 12/31/23 Interval History: Being followed for placement. No acute issues overnight, denies nausea, no vomiting tolerating diet offers no acute complaints. Review of Systems All other system reviewed and negative. Physical Exam 2 Vital Signs: Vital Signs: Last Vital Signs Temp 98 F 12/31/23 06:42 Pulse 67 12/31/23 06:42 Resp 16 12/31/23 06:42 BP 120/64 12/31/23 06:42 Pulse Ox 99 12/31/23 06:42 O2 Del Method Room Air 12/31/23 06:42 O2 Flow Rate 3 10/05/23 16:00 BMI result Body Mass Index 22.7 Const: Other: General awake alert, in no acute distress. Neck supple, no JVD. CVS regular rate rhythm, Respiratory lungs clear to auscultation, no respiratory distress, no wheeze, no rhonchi. Gastrointestinal abdomen soft, non tender, bowel sounds audible. Extremities no edema. Neuro speech clear, no focal weakness. Psych impaired insight. Objective Data Active Medications Acetaminophen (Acetaminophen 325 Mg Tablet) 650 mg PO Q6H PRN PRN Reason: Pain, Mild (Pain Scale 1-3) Last Admin: 12/31/23 08:36 Dose: 650 mg Documented By: SILVESTRE Al Hydroxide/Mg Hydroxide (Magnesium Hydrox/Alum Hydrox 30 Ml Oral.Susp) 30 ml PO Q6H PRN PRN Reason: GI Upset Last Admin: 11/19/23 19:16 Dose: 30 ml Documented By: LAMIN Benzocaine (Throat Lozenge, Medicated Lozenge) 1 lozenge MUCOUS MEM Q2H PRN PRN Reason: Sore Throat Last Admin: 12/10/23 08:25 Dose: 1 lozenge Documented By: CHAS Benzonatate (Benzonatate 100 Mg Capsule) 100 mg PO TID PRN PRN Reason: Cough Buprenorphine/Naloxone (Buprenorphine/Naloxone 8/2 Mg Film) 1 film SUBLINGUAL BID [facility] Last Admin: 12/31/23 08:38 Dose: 1 film Documented By: SILVESTRE Divalproex Sodium (Divalproex Sodium 250 Mg Tablet.Dr) 250 mg PO TID [facility] Last Admin: 12/31/23 08:36 Dose: 250 mg Documented By: SILVESTRE Docusate Sodium (Docusate Sodium 100 Mg Capsule) 100 mg PO DAILY PRN PRN Reason: Constipation Lidocaine (Lidocaine 4 % Patch Adh..Patch) 1 patch TRANSDERMA DAILY [facility]; Protocol Last Admin: 12/31/23 08:36 Dose: 1 patch Documented By: SILVESTRE Nicotine Polacrilex (Nicotine Polacrilex 2 Mg Gum) 4 mg BUCCAL Q2H PRN PRN Reason: nicotine addiction Last Admin: 12/31/23 08:36 Dose: 4 mg Documented By: SILVESTRE Olanzapine (Olanzapine 10 Mg Vial) 5 mg IM DAILY PRN PRN Reason: severe agitation Ondansetron HCl (Ondansetron Hcl 4 Mg/2 Ml Vial) 4 mg IVPUSH Q8H PRN PRN Reason: Nausea and Vomiting Ondansetron HCl (Ondansetron Odt 4 Mg Tab.Rapdis) 4 mg TRANSLINGU Q6H PRN PRN Reason: Nausea and Vomiting Last Admin: 12/01/23 23:36 Dose: 4 mg Documented By: JOE Risperidone (Risperidone 1 Mg Tablet) 1 mg PO BID [facility] Last Admin: 12/31/23 08:36 Dose: 1 mg Documented By: SILVESTRE Labs 12/04/23 10:41 12/27/23 12:11 Assessment and Plan (1) Alcoholic Korsakoff syndrome: Status: Acute Plan Pt is a 48-year-old female with a PMH significant for opioid use disorder on Suboxone, alcohol use disorder, and Korsakoff's syndrome? who initially presented to the ED on?09/19/2023 looking for her Clement that she had not seen for a few days. Pt apparently had heard he was at this hospital so she called an ambulance to bring her here. Pt will be admitted to the hospital while awaiting guardianship and LTC placement. Guardianship hearing is scheduled for 10/09/2023. 1.Alcohol Korsakoff's syndrome -Continue Seroquel, Depakote -continue to be without aggressive behavior 2.Opioid use disorder -Continue Suboxone 3. Tobacco use disorder continue Nicorette gum 4. Acute hyponatremia noted on 12/03, was likely due to excessive fluid intake, treated with fluid restriction now resolved , no further fluid restriction needed. Full Code Pt ambulatory. Pt will require a hospitalization pending guardianship and safe placement Quality Stroke Does the patient have a stroke diagnosis?: No VTE Prior VTE?: No VTE Risk Level:: Medical - low VTE Device Contraindication: Treatment Not Indicated VTE Drug Contraindication: Treatment Not Indicated
--- NOTE | 2023-12-31 14:32 | P.CNPS_ITS ---
History of Present Illness Date of Service: 12/31/2023 Chief Complaint: Awaiting guardianship Reason for Consult: F/U Sources of Information: patient interviewed, chart reviewed and crisis/core team assessment reviewed HPI Narrative: Interim Hx: Pt has been awaiting for placement. Pt although oriented to place, month, year not able to tell why she is here in the hospital. Pt reports the only person who comes and sees her is Clement- however, per nursing and staff this is not the case. Pt reports Clement sees a nurse here in the hospital and she believes he is able to see her through the camera in her room. Pt shows this telegraphic typewriter repairer copy of guardianship papers completed by the hospital, which pt reports these were paper that Clement did because she was drinking. Superficially she may sound as more capable and understanding of situation but as one continues the interview, pt reports she has not talked with anyone while she has been here in the hospital and does not understand why she is here. She reports Clement is keeping her apartment- which again is not the case. She reports she is waiting to be able to go back to work. Past Psychiatric History: Inpt- none Past trial- seroquel, risperidone, depakote Medical Evaluation Reviewed: Yes PMFSH Trauma History: Unknown Diagnostics Vital Signs (24Hr): Vital Signs - 24 hr 12/30/23 15:24 12/30/23 19:29 12/31/23 03:22 Temperature 97.0 F 97.8 F 97.1 F Pulse Rate 63 61 67 Respiratory Rate 18 18 18 Blood Pressure 101/58 L 118/70 134/68 Pulse Oximetry 95 96 97 Oxygen Delivery Method Room Air Room Air Room Air 12/31/23 06:42 Temperature 98 F Pulse Rate 67 Respiratory Rate 16 Blood Pressure 120/64 Pulse Oximetry 99 Oxygen Delivery Method Room Air BMI result Body Mass Index 22.7 Labs 12/04/23 10:41 12/27/23 12:11 Imaging Radiology Impressions: ITS Impressions Venous Duplex 11/29/23 13:00 IMPRESSION: No DVT demonstrated in the bilateral lower extremity. Chest X-Ray 12/04/23 10:20 IMPRESSION: No acute abnormality. Mental Status Exam Mental Status Exam Narrative: Appearance: wearing casual clothing, good hygiene, in NAD Behavior: cooperative Psychomotor: no agitation or retardation noted Speech: mostly clear, regular rhythm/volume, spontaneous TP: linear TC: waiting for Clement Mood: good Affect: congruent SI: deines HI: denies VH/AH: unclear if confabulations about Clement or if she has seen someone who is not there Delusions: some suspiciousness thinking Clement can see her through cameras in the hospital Insight/judgment: when it comes to cognitive impairments and ability to understand what is going on- insight and judgment is limited. Memory/cog: alert, oriented to place, month, year, not to situation. Her language is grossly preserved, but higher functions of the brain such as understanding more complex information, retaining information, planning and executive function is impaired. Medications Medications Current Medications Acetaminophen (Acetaminophen 325 Mg Tablet) 650 mg PO Q6H PRN PRN Reason: Pain, Mild (Pain Scale 1-3) Last Admin: 12/31/23 08:36 Dose: 650 mg Al Hydroxide/Mg Hydroxide (Magnesium Hydrox/Alum Hydrox 30 Ml Oral.Susp) 30 ml PO Q6H PRN PRN Reason: GI Upset Last Admin: 11/19/23 19:16 Dose: 30 ml Benzocaine (Throat Lozenge, Medicated Lozenge) 1 lozenge MUCOUS MEM Q2H PRN PRN Reason: Sore Throat Last Admin: 12/10/23 08:25 Dose: 1 lozenge Benzonatate (Benzonatate 100 Mg Capsule) 100 mg PO TID PRN PRN Reason: Cough Buprenorphine/Naloxone (Buprenorphine/Naloxone 8/2 Mg Film) 1 film SUBLINGUAL BID [facility] Last Admin: 12/31/23 08:38 Dose: 1 film Divalproex Sodium (Divalproex Sodium 250 Mg Tablet.Dr) 250 mg PO TID [facility] Last Admin: 12/31/23 08:36 Dose: 250 mg Docusate Sodium (Docusate Sodium 100 Mg Capsule) 100 mg PO DAILY PRN PRN Reason: Constipation Lidocaine (Lidocaine 4 % Patch Adh..Patch) 1 patch TRANSDERMA DAILY [facility]; Protocol Last Admin: 12/31/23 08:36 Dose: 1 patch Nicotine Polacrilex (Nicotine Polacrilex 2 Mg Gum) 4 mg BUCCAL Q2H PRN PRN Reason: nicotine addiction Last Admin: 12/31/23 12:05 Dose: 4 mg Olanzapine (Olanzapine 10 Mg Vial) 5 mg IM DAILY PRN PRN Reason: severe agitation Ondansetron HCl (Ondansetron Hcl 4 Mg/2 Ml Vial) 4 mg IVPUSH Q8H PRN PRN Reason: Nausea and Vomiting Ondansetron HCl (Ondansetron Odt 4 Mg Tab.Rapdis) 4 mg TRANSLINGU Q6H PRN PRN Reason: Nausea and Vomiting Last Admin: 12/01/23 23:36 Dose: 4 mg Risperidone (Risperidone 1 Mg Tablet) 1 mg PO BID [facility] Last Admin: 12/31/23 08:36 Dose: 1 mg Allergies Allergies Allergy/AdvReac Type Severity Reaction Status Date / Time Penicillins [PENICILLINS] Allergy Mild HIVES Verified 09/19/23 16:35 Antihistamines - Alkylamine AdvReac Intermediate feels like Verified 09/19/23 16:35 [ANTIHISTAMINES - ALKYLAMINE] bugs are crawling on her hydroxyzine [From VISTARIL] AdvReac Intermediate feels like Verified 09/19/23 16:35 bugs are crawling on her GRASS Allergy Mild UNKNOWN Uncoded 06/21/23 11:12 Assessment & Plan Assessment & Plan (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 Carlos is a 48 year-old woman with hx of alcohol related major neurocognitive disorder who has been awaiting placement. She presents with some suspiciousness and paranoid ideas of person, Clement who she reports comes and steals from her, is her boyfriend and she believes is able to see her through cameras of the hospital. Although she is oriented to place, month and year, she is not able to verbalize understanding as to concerns in terns of her ability to care for herself including her ability to retain information. She states she is here because Clement is working on helping with apartment. She shows this telegraphic typewriter repairer paperwork of guardianship completed by hospital and states these paper are related to her drinking and they were completed by Clement. Per nursing, no behavioral concerns. Pt has not required PRN medications for agitation since October of this year. She is taking medications as prescribed PLAN 1. increase risperidone to 1mg po daily and 2mg po qhs to target paranoia. 2. ordered depakote level for tomorrow morning. 3. completed affidavit with updated medication regimen. 4. pt continues to lack capacity to make informed medical decisions due to inability to process more complex information, retain information, despite superficially presenting as much more functional. Total time managing care of this patient today ____ minutes.
[2023-12-31 16:00] VITALS: BP 123/69; PULSE 66; RESP 18; TEMP 36.1; O2SAT 95
[2023-12-31 20:00] VITALS: BP 109/64; PULSE 57; RESP 16; TEMP 36.1; O2SAT 96
[2023-12-31] MEDS: risperiDONE 2 MG TABLET PO (21:03)
[2024-01-01 03:32] VITALS: BP 92/50; PULSE 61; RESP 16; TEMP 36.1; O2SAT 96
[2024-01-01 07:39] VITALS: BP 98/56; PULSE 56; RESP 17; TEMP 36.8; O2SAT 97
[2024-01-01] MEDS: risperiDONE 1 MG TABLET PO (08:32)
[2024-01-01] MEDS: Nicotine Polacrilex 2 MG GUM 4 MG BUCCAL ×5 (08:32→22:38)
[2024-01-01] MEDS: Buprenorphine/Naloxone 8/2 mg FILM 1 FILM SUBLINGUAL ×2 (08:32→20:49)
[2024-01-01] MEDS: Divalproex Sodium 250 MG TABLET.DR PO ×3 (08:32→20:49)
--- NOTE | 2024-01-01 09:41 | P.PNIM_ITS ---
Subjective Subjective Date of Service: 01/01/24 Interval History: Being followed for placement, requesting for Nicorette gum, slept well, tolerating diet, offers no acute complaints. Review of Systems All other system reviewed and negative. Physical Exam 2 Vital Signs: Vital Signs: Last Vital Signs Temp 98.2 F 01/01/24 07:39 Pulse 56 01/01/24 07:39 Resp 17 01/01/24 07:39 BP 98/56 L 01/01/24 07:39 Pulse Ox 97 01/01/24 07:39 O2 Del Method Room Air 01/01/24 07:39 O2 Flow Rate 3 10/05/23 16:00 BMI result Body Mass Index 22.7 Const: Other: General awake alert, in no acute distress. Neck supple, no JVD. CVS regular rate rhythm, Respiratory lungs clear to auscultation, no respiratory distress, no wheeze, no rhonchi. Gastrointestinal abdomen soft, non tender, bowel sounds audible. Extremities no edema. Neuro speech clear, no focal weakness. Psych impaired insight. Objective Data Active Medications Acetaminophen (Acetaminophen 325 Mg Tablet) 650 mg PO Q6H PRN PRN Reason: Pain, Mild (Pain Scale 1-3) Last Admin: 12/31/23 14:36 Dose: 650 mg Documented By: ASIF Al Hydroxide/Mg Hydroxide (Magnesium Hydrox/Alum Hydrox 30 Ml Oral.Susp) 30 ml PO Q6H PRN PRN Reason: GI Upset Last Admin: 11/19/23 19:16 Dose: 30 ml Documented By: LAMIN Benzocaine (Throat Lozenge, Medicated Lozenge) 1 lozenge MUCOUS MEM Q2H PRN PRN Reason: Sore Throat Last Admin: 12/10/23 08:25 Dose: 1 lozenge Documented By: CHAS Benzonatate (Benzonatate 100 Mg Capsule) 100 mg PO TID PRN PRN Reason: Cough Buprenorphine/Naloxone (Buprenorphine/Naloxone 8/2 Mg Film) 1 film SUBLINGUAL BID [facility] Last Admin: 01/01/24 08:32 Dose: 1 film Documented By: JOSEPH Divalproex Sodium (Divalproex Sodium 250 Mg Tablet.Dr) 250 mg PO TID [facility] Last Admin: 01/01/24 08:32 Dose: 250 mg Documented By: JOSEPH Docusate Sodium (Docusate Sodium 100 Mg Capsule) 100 mg PO DAILY PRN PRN Reason: Constipation Lidocaine (Lidocaine 4 % Patch Adh..Patch) 1 patch TRANSDERMA DAILY [facility]; Protocol Last Admin: 01/01/24 08:35 Dose: Not Given Documented By: JOSEPH Non-Admin Reason: Patient Refused Nicotine Polacrilex (Nicotine Polacrilex 2 Mg Gum) 4 mg BUCCAL Q2H PRN PRN Reason: nicotine addiction Last Admin: 01/01/24 08:32 Dose: 4 mg Documented By: JOSEPH Ondansetron HCl (Ondansetron Hcl 4 Mg/2 Ml Vial) 4 mg IVPUSH Q8H PRN PRN Reason: Nausea and Vomiting Ondansetron HCl (Ondansetron Odt 4 Mg Tab.Rapdis) 4 mg TRANSLINGU Q6H PRN PRN Reason: Nausea and Vomiting Last Admin: 12/01/23 23:36 Dose: 4 mg Documented By: JOE Risperidone (Risperidone 1 Mg Tablet) 1 mg PO DAILY [facility] Last Admin: 01/01/24 08:32 Dose: 1 mg Documented By: JOSEPH Risperidone (Risperidone 2 Mg Tablet) 2 mg PO BEDTIME [facility] Last Admin: 12/31/23 21:03 Dose: 2 mg Documented By: JUAN Domínguez 12/04/23 10:41 12/27/23 12:11 Assessment and Plan (1) Alcoholic Korsakoff syndrome: Status: Acute Plan Pt is a 48-year-old female with a PMH significant for opioid use disorder on Suboxone, alcohol use disorder, and Korsakoff's syndrome? who initially presented to the ED on?09/19/2023 looking for her Clement that she had not seen for a few days. Pt apparently had heard he was at this hospital so she called an ambulance to bring her here. Pt will be admitted to the hospital while awaiting guardianship and LTC placement. Guardianship hearing is scheduled for 10/09/2023. 1.Alcohol Korsakoff's syndrome -Continue Seroquel, Depakote -seen by psychiatry they uptitrated dose of risperidone to mg at a.m. and 2 mg at bedtime to target paranoia -will follow Depakote level -continue to be without aggressive behavior, continue to lack capacity to make informed medical decisions. 2.Opioid use disorder -Continue Suboxone 3. Tobacco use disorder continue Nicorette gum 4. Acute hyponatremia noted on 12/03, was likely due to excessive fluid intake, treated with fluid restriction now resolved , no further fluid restriction needed. Full Code Pt ambulatory. Pt will require a hospitalization pending guardianship and safe placement Quality Stroke Does the patient have a stroke diagnosis?: No VTE Prior VTE?: No VTE Risk Level:: Medical - low VTE Device Contraindication: Treatment Not Indicated VTE Drug Contraindication: Treatment Not Indicated
--- NOTE | 2024-01-01 15:11 | MHC.CM.PN ---
No discharge today. [facility] following for updated Guardianship, 01/09/[address] Patient will transport via S.
[2024-01-01 15:25] VITALS: BP 120/59; PULSE 56; RESP 18; TEMP 36.1; O2SAT 96
[2024-01-01 19:27] VITALS: BP 106/58; PULSE 58; RESP 18; TEMP 36.3; O2SAT 95
[2024-01-01] MEDS: risperiDONE 2 MG TABLET PO (20:49)
[2024-01-01] MEDS: Acetaminophen 325 MG TABLET 650 MG PO (22:35)
[2024-01-02 04:00] VITALS: BP 112/56; PULSE 50; RESP 16; TEMP 36.3; O2SAT 95
[2024-01-02] MEDS: Nicotine Polacrilex 2 MG GUM 4 MG BUCCAL ×7 (06:28→19:49)
[2024-01-02 07:09] VITALS: BP 98/55; PULSE 59; RESP 16; TEMP 36.1; O2SAT 95
[2024-01-02] MEDS: Divalproex Sodium 250 MG TABLET.DR PO ×3 (08:35→21:07)
[2024-01-02] MEDS: Buprenorphine/Naloxone 8/2 mg FILM 1 FILM SUBLINGUAL ×2 (08:35→21:07)
[2024-01-02] MEDS: Lidocaine 4 % Patch ADH..PATCH 1 PATCH TRANSDERMA (08:35)
[2024-01-02] MEDS: risperiDONE 1 MG TABLET PO (08:36)
--- NOTE | 2024-01-02 13:09 | HO.PM.IMPN ---
Subjective Subjective Date of Service: 01/02/24 Interval History: Being followed for placement, offers no acute complaints of leg discomfort, denies fever, no chills, no nausea no vomiting no abdominal pain, no diarrhea, no acute events overnight, no behavioral issues. Review of Systems All other system reviewed and negative Physical Exam Vital Signs: Vital Signs: Last Vital Signs Temp 97.0 F 01/02/24 07:09 Pulse 59 01/02/24 07:09 Resp 16 01/02/24 07:09 BP 98/55 L 01/02/24 07:09 Pulse Ox 95 01/02/24 07:09 O2 Del Method Room Air 01/02/24 07:09 O2 Flow Rate 3 10/05/23 16:00 BMI result Body Mass Index 22.7 Const: Other: General awake alert, in no acute distress. Neck supple, no JVD. CVS regular rate rhythm, Respiratory lungs clear to auscultation, no respiratory distress, no wheeze, no rhonchi. Gastrointestinal abdomen soft, non tender, bowel sounds audible. Extremities bilateral lower extremity pitting edema, no hyperemia no warmth. Neuro speech clear, no focal weakness. Psych impaired insight. Objective Data Active Medications Acetaminophen (Acetaminophen 325 Mg Tablet) 650 mg PO Q6H PRN PRN Reason: Pain, Mild (Pain Scale 1-3) Last Admin: 01/01/24 22:35 Dose: 650 mg Documented By: JOE Al Hydroxide/Mg Hydroxide (Magnesium Hydrox/Alum Hydrox 30 Ml Oral.Susp) 30 ml PO Q6H PRN PRN Reason: GI Upset Last Admin: 11/19/23 19:16 Dose: 30 ml Documented By: LAMIN Benzocaine (Throat Lozenge, Medicated Lozenge) 1 lozenge MUCOUS MEM Q2H PRN PRN Reason: Sore Throat Last Admin: 12/10/23 08:25 Dose: 1 lozenge Documented By: CHAS Benzonatate (Benzonatate 100 Mg Capsule) 100 mg PO TID PRN PRN Reason: Cough Buprenorphine/Naloxone (Buprenorphine/Naloxone 8/2 Mg Film) 1 film SUBLINGUAL BID [facility] Last Admin: 01/02/24 08:35 Dose: 1 film Documented By: SANTIAGO Divalproex Sodium (Divalproex Sodium 250 Mg Tablet.Dr) 250 mg PO TID [facility] Last Admin: 01/02/24 08:35 Dose: 250 mg Documented By: SANTIAGO Docusate Sodium (Docusate Sodium 100 Mg Capsule) 100 mg PO DAILY PRN PRN Reason: Constipation Lidocaine (Lidocaine 4 % Patch Adh..Patch) 1 patch TRANSDERMA DAILY [facility]; Protocol Last Admin: 01/02/24 08:35 Dose: 1 patch Documented By: SANTIAGO Nicotine Polacrilex (Nicotine Polacrilex 2 Mg Gum) 4 mg BUCCAL Q2H PRN PRN Reason: nicotine addiction Last Admin: 01/02/24 11:28 Dose: 4 mg Documented By: JORGE Ondansetron HCl (Ondansetron Hcl 4 Mg/2 Ml Vial) 4 mg IVPUSH Q8H PRN PRN Reason: Nausea and Vomiting Ondansetron HCl (Ondansetron Odt 4 Mg Tab.Rapdis) 4 mg TRANSLINGU Q6H PRN PRN Reason: Nausea and Vomiting Last Admin: 12/01/23 23:36 Dose: 4 mg Documented By: JOE Risperidone (Risperidone 1 Mg Tablet) 1 mg PO DAILY [facility] Last Admin: 01/02/24 08:36 Dose: 1 mg Documented By: SANTIAGO Risperidone (Risperidone 2 Mg Tablet) 2 mg PO BEDTIME [facility] Last Admin: 01/01/24 20:49 Dose: 2 mg Documented By: JOE Labs 12/04/23 10:41 12/27/23 12:11 Assessment and Plan (1) Alcoholic Korsakoff syndrome: Status: Acute Plan Pt is a 48-year-old female with a PMH significant for opioid use disorder on Suboxone, alcohol use disorder, and Korsakoff's syndrome? who initially presented to the ED on?09/19/2023 looking for her Clement that she had not seen for a few days. Pt apparently had heard he was at this hospital so she called an ambulance to bring her here. Pt will be admitted to the hospital while awaiting guardianship and LTC placement. Guardianship hearing is scheduled for 10/09/2023. 1.Alcohol Korsakoff's syndrome -Continue Seroquel, Depakote -seen by psychiatry they uptitrated dose of risperidone to mg at a.m. and 2 mg at bedtime to target paranoia -will follow Depakote level -continue to be without aggressive behavior, continue to lack capacity to make informed medical decisions. 2.Opioid use disorder -Continue Suboxone 3. Tobacco use disorder continue Nicorette gum 4. Acute hyponatremia noted on 12/03, was likely due to excessive fluid intake, treated with fluid restriction now resolved , no further fluid restriction needed. 5, bilateral lower extremity edema with no associated shortness of breath, chest pain, no orthopnea, no PND will check TSH, CBC, electrolytes, albumin, no history of renal failure, normal LFTs recommend to keep leg elevated and low-salt diet, Follow clinical course. Full Code Pt ambulatory. Pt will require a hospitalization pending guardianship and safe placement Quality Stroke Does the patient have a stroke diagnosis?: No VTE Prior VTE?: No VTE Risk Level:: Medical - low VTE Device Contraindication: Treatment Not Indicated VTE Drug Contraindication: Treatment Not Indicated
[2024-01-02 15:16] VITALS: BP 104/56; PULSE 65; RESP 18; TEMP 36.3; O2SAT 97
--- NOTE | 2024-01-02 15:38 | MHC.CM.PN ---
A PCP appointment with Ping Matt [address] [place] [address] , had been scheduled 01/03/24 @ 1:45pm. Patient has not been discharged. The appointment has been cancelled.
[2024-01-02 19:47] VITALS: BP 113/69; PULSE 67; RESP 16; TEMP 36.5; O2SAT 95
[2024-01-02] MEDS: risperiDONE 2 MG TABLET PO (21:07)
[2024-01-03 04:00] VITALS: BP 99/53; PULSE 59; RESP 16; TEMP 36.1; O2SAT 96
[2024-01-03] MEDS: Nicotine Polacrilex 2 MG GUM 4 MG BUCCAL ×6 (04:05→21:42)
[2024-01-03 06:59] LABS: Hematocrit 38.2 % (37.0-47.0); Hemoglobin 12.6 g/dl (12.0-16.0); Mean Corpuscular Hemoglobin 32.6 pg (27.0-33.0); Mean Corpuscular Volume 98.7 fL (80.0-98.0); Mean Platelet Volume 11.4 fL (9.4-12.3); Platelet Count 166 X10*3/uL (160-400); Red Blood Count 3.87 X10*6/uL (4.20-5.50); Red Cell Distribution Width 11.9 % (11.0-16.0); White Blood Count 5.4 X10*3/uL (4.8-10.8)
[2024-01-03 07:04] LABS: Albumin Level 3.9 g/dL (3.5-5.0); Anion Gap 14 (12-20); Blood Urea Nitrogen 12 mg/dL (9-16); Calcium 9.6 mg/dL (8.4-10.2); Carbon Dioxide 26 mmol/L (22-29); Chloride 104 mmol/L (96-108); Creatinine Clr Calc Pharmacy 75.5; Estimated Glomerular Filt Rate > 60; Glucose Random 82 mg/dL (60-115); Potassium 4.7 mmol/L (3.3-5.1); Sodium 139 mmol/L (135-145)
[2024-01-03 07:20] LABS: Thyroid Stimulating Hormone 0.97 uIU/mL (0.32-4.0)
[2024-01-03 08:00] VITALS: BP 94/50; PULSE 58; RESP 16; TEMP 36.2; O2SAT 98
[2024-01-03] MEDS: Lidocaine 4 % Patch ADH..PATCH 1 PATCH TRANSDERMA (09:07)
[2024-01-03] MEDS: Divalproex Sodium 250 MG TABLET.DR PO ×3 (09:08→21:42)
[2024-01-03] MEDS: risperiDONE 1 MG TABLET PO (09:08)
[2024-01-03] MEDS: Buprenorphine/Naloxone 8/2 mg FILM 1 FILM SUBLINGUAL ×2 (09:08→21:44)
--- NOTE | 2024-01-03 11:50 | P.PNIM_ITS ---
Subjective Subjective Date of Service: 01/03/24 Interval History: Being followed for placement, offers no acute complaints, leg edema has improved. No other acute events overnight. Review of Systems All other system reviewed and are negative Physical Exam 2 Vital Signs: Vital Signs: Last Vital Signs Temp 97.2 F 01/03/24 08:00 Pulse 58 01/03/24 08:00 Resp 16 01/03/24 08:00 BP 94/50 L 01/03/24 08:00 Pulse Ox 98 01/03/24 08:00 O2 Del Method Room Air 01/03/24 08:00 O2 Flow Rate 3 10/05/23 16:00 BMI result Body Mass Index 22.7 Const: Other: General awake alert, in no acute distress. Neck supple, no JVD. CVS regular rate rhythm, Respiratory lungs clear to auscultation, no respiratory distress, no wheeze, no rhonchi. Gastrointestinal abdomen soft, non tender, bowel sounds audible. Extremities bilateral lower extremity pitting edema, no hyperemia no warmth. Neuro speech clear, no focal weakness. Psych impaired insight. Objective Data Active Medications Al Hydroxide/Mg Hydroxide (Magnesium Hydrox/Alum Hydrox 30 Ml Oral.Susp) 30 ml PO Q6H PRN PRN Reason: GI Upset Last Admin: 11/19/23 19:16 Dose: 30 ml Documented By: LAMIN Benzocaine (Throat Lozenge, Medicated Lozenge) 1 lozenge MUCOUS MEM Q2H PRN PRN Reason: Sore Throat Last Admin: 12/10/23 08:25 Dose: 1 lozenge Documented By: CHAS Buprenorphine/Naloxone (Buprenorphine/Naloxone 8/2 Mg Film) 1 film SUBLINGUAL BID [facility] Last Admin: 01/03/24 09:08 Dose: 1 film Documented By: OH Divalproex Sodium (Divalproex Sodium 250 Mg Tablet.Dr) 250 mg PO TID [facility] Last Admin: 01/03/24 09:08 Dose: 250 mg Documented By: OH Lidocaine (Lidocaine 4 % Patch Adh..Patch) 1 patch TRANSDERMA DAILY [facility]; Protocol Last Admin: 01/03/24 09:07 Dose: 1 patch Documented By: OH Nicotine Polacrilex (Nicotine Polacrilex 2 Mg Gum) 4 mg BUCCAL Q2H PRN PRN Reason: nicotine addiction Last Admin: 01/03/24 11:22 Dose: 4 mg Documented By: MAR Ondansetron HCl (Ondansetron Odt 4 Mg Tab.Rapdis) 4 mg TRANSLINGU Q6H PRN PRN Reason: Nausea and Vomiting Last Admin: 12/01/23 23:36 Dose: 4 mg Documented By: JOE Risperidone (Risperidone 1 Mg Tablet) 1 mg PO DAILY [facility] Last Admin: 01/03/24 09:08 Dose: 1 mg Documented By: OH Risperidone (Risperidone 2 Mg Tablet) 2 mg PO BEDTIME [facility] Last Admin: 01/02/24 21:07 Dose: 2 mg Documented By: JOE Labs 01/03/24 05:58 01/03/24 05:58 Labs: Laboratory Results - last 24 hr 01/03/24 05:58 MCV 98.7 H MCH 32.6 MCHC 33.0 RDW 11.9 Plt Count 166 MPV 11.4 Absolute Nucleated RBC 0.000 Nucleated RBC % (auto) 0.0 Anion Gap 14 Estim Creat Clear Calc 75.5 Estimated GFR > 60 Random Glucose 82 Calcium 9.6 Albumin 3.9 TSH 0.97 Assessment and Plan (1) Hyponatremia: Status: Acute (2) Leg swelling: Status: Acute Plan Pt is a 48-year-old female with a PMH significant for opioid use disorder on Suboxone, alcohol use disorder, and Korsakoff's syndrome? who initially presented to the ED on?09/19/2023 looking for her Clement that she had not seen for a few days. Pt apparently had heard he was at this hospital so she called an ambulance to bring her here. Pt will be admitted to the hospital while awaiting guardianship and LTC placement. Guardianship hearing is scheduled for 10/09/2023. 1.Alcohol Korsakoff's syndrome -Continue Seroquel, Depakote -seen by psychiatry they uptitrated dose of risperidone to 1 mg at a.m. and 2 mg at bedtime to target paranoia -continue to be without aggressive behavior, continue to lack capacity to make informed medical decisions. -Depakote level 44 2.Opioid use disorder -Continue Suboxone 3. Tobacco use disorder continue Nicorette gum 4. Acute hyponatremia noted on 12/03, was likely due to excessive fluid intake, treated with fluid restriction now resolved . 5, bilateral lower extremity edema improved, TSH, CBC electrolytes and albumin within normal range likely due to excessive salt and fluid intake, recommend to keep legs elevated while sitting Full Code Pt ambulatory. Pt will require a hospitalization pending guardianship and safe placement Quality Stroke Does the patient have a stroke diagnosis?: No VTE Prior VTE?: No VTE Risk Level:: Medical - low VTE Device Contraindication: Treatment Not Indicated VTE Drug Contraindication: Treatment Not Indicated
--- NOTE | 2024-01-03 12:45 | MHC.CM.PN ---
Addendum entered by Natalie Kemp 01/03/24 14:03: A call has been received fro [facility]. Erik Frederick reports that a female bed is available. A clinical update was sent at [employer] request. He stated that the director will review the updated clinical information. Erik will notify [facility] with the outcome of the review. DP [facility] via BLS. Lisset Gooden [facility] drug abuse program coordinator has received an update via a detailed VM. Bud and her sisters have also received an update on the discharge plan. Original Note: A [facility]. DP [facility] via BLS. Barrier is renewal of Guardianship and sosa.
[2024-01-03] MEDS: Acetaminophen 325 MG TABLET 650 MG PO ×2 (14:17→21:42)
[2024-01-03 15:26] VITALS: BP 128/63; PULSE 66; RESP 16; TEMP 36.6; O2SAT 96
[2024-01-03 19:37] VITALS: BP 109/61; PULSE 61; RESP 16; TEMP 36.1; O2SAT 96
[2024-01-03] MEDS: risperiDONE 2 MG TABLET PO (21:42)
[2024-01-04 03:23] VITALS: BP 91/55; PULSE 62; RESP 16; TEMP 36.1; O2SAT 95
[2024-01-04 07:53] VITALS: BP 90/54; PULSE 63; RESP 16; TEMP 36.4; O2SAT 96
[2024-01-04] MEDS: Buprenorphine/Naloxone 8/2 mg FILM 1 FILM SUBLINGUAL ×2 (08:33→20:54)
[2024-01-04] MEDS: risperiDONE 1 MG TABLET PO (08:33)
[2024-01-04] MEDS: Divalproex Sodium 250 MG TABLET.DR PO ×3 (08:33→20:54)
[2024-01-04] MEDS: Lidocaine 4 % Patch ADH..PATCH 1 PATCH TRANSDERMA (08:33)
[2024-01-04] MEDS: Nicotine Polacrilex 2 MG GUM 4 MG BUCCAL ×4 (08:45→20:05)
--- NOTE | 2024-01-04 09:50 | P.PNIM_ITS ---
Subjective Subjective Date of Service: 01/04/24 Interval History: Being followed for placement, offers no acute complaints bilateral lower extremity swelling has resolved patient tolerating diet no nausea, no vomiting, no abdominal pain no other acute events overnight. Review of Systems All other system reviewed and negative. Physical Exam 2 Vital Signs: Vital Signs: Last Vital Signs Temp 97.6 F 01/04/24 07:53 Pulse 63 01/04/24 07:53 Resp 16 01/04/24 07:53 BP 90/54 L 01/04/24 07:53 Pulse Ox 96 01/04/24 07:53 O2 Del Method Room Air 01/04/24 07:53 O2 Flow Rate 3 10/05/23 16:00 BMI result Body Mass Index 22.7 Const: Other: General awake alert, in no acute distress. Neck supple, no JVD. CVS regular rate rhythm, Respiratory lungs clear to auscultation, no respiratory distress, no wheeze, no rhonchi. Gastrointestinal abdomen soft, non tender, bowel sounds audible. Extremities lower extremity edema resolved Neuro speech clear, no focal weakness. Psych impaired insight. Objective Data Active Medications Acetaminophen (Acetaminophen 325 Mg Tablet) 650 mg PO Q6H PRN PRN Reason: Pain, Mild (Pain Scale 1-3) Last Admin: 01/03/24 21:42 Dose: 650 mg Documented By: IGOR Al Hydroxide/Mg Hydroxide (Magnesium Hydrox/Alum Hydrox 30 Ml Oral.Susp) 30 ml PO Q6H PRN PRN Reason: GI Upset Last Admin: 11/19/23 19:16 Dose: 30 ml Documented By: ODRISM Benzocaine (Throat Lozenge, Medicated Lozenge) 1 lozenge MUCOUS MEM Q2H PRN PRN Reason: Sore Throat Last Admin: 12/10/23 08:25 Dose: 1 lozenge Documented By: CHAS Buprenorphine/Naloxone (Buprenorphine/Naloxone 8/2 Mg Film) 1 film SUBLINGUAL BID [facility] Last Admin: 01/04/24 08:33 Dose: 1 film Documented By: CRISTA Divalproex Sodium (Divalproex Sodium 250 Mg Tablet.Dr) 250 mg PO TID [facility] Last Admin: 01/04/24 08:33 Dose: 250 mg Documented By: CRISTA Lidocaine (Lidocaine 4 % Patch Adh..Patch) 1 patch TRANSDERMA DAILY [facility]; Protocol Last Admin: 01/04/24 08:33 Dose: 1 patch Documented By: CRISTA Nicotine Polacrilex (Nicotine Polacrilex 2 Mg Gum) 4 mg BUCCAL Q2H PRN PRN Reason: nicotine addiction Last Admin: 01/04/24 08:45 Dose: 4 mg Documented By: CRISTA Ondansetron HCl (Ondansetron Odt 4 Mg Tab.Rapdis) 4 mg TRANSLINGU Q6H PRN PRN Reason: Nausea and Vomiting Last Admin: 12/01/23 23:36 Dose: 4 mg Documented By: JOE Risperidone (Risperidone 1 Mg Tablet) 1 mg PO DAILY [facility] Last Admin: 01/04/24 08:33 Dose: 1 mg Documented By: CRISTA Risperidone (Risperidone 2 Mg Tablet) 2 mg PO BEDTIME [facility] Last Admin: 01/03/24 21:42 Dose: 2 mg Documented By: IGOR Labs 01/03/24 05:58 01/03/24 05:58 Assessment and Plan (1) Hyponatremia: Status: Acute (2) Leg swelling: Status: Acute Plan Pt is a 48-year-old female with a PMH significant for opioid use disorder on Suboxone, alcohol use disorder, and Korsakoff's syndrome? who initially presented to the ED on?09/19/2023 looking for her Clement that she had not seen for a few days. Pt apparently had heard he was at this hospital so she called an ambulance to bring her here. Pt will be admitted to the hospital while awaiting guardianship and LTC placement. Guardianship hearing is scheduled for 10/09/2023. 1.Alcohol Korsakoff's syndrome -Continue Seroquel, Depakote -seen by psychiatry they uptitrated dose of risperidone to 1 mg at a.m. and 2 mg at bedtime to target paranoia -no aggressive behavior, continue to lack capacity to make informed medical decisions. -Depakote level 44 2.Opioid use disorder -Continue Suboxone 3. Tobacco use disorder continue Nicorette gum 4. Acute hyponatremia noted on 12/03, was likely due to excessive fluid intake, treated with fluid restriction now resolved . 5, bilateral lower extremity edema improved, TSH, CBC electrolytes and albumin within normal range likely due to excessive salt and fluid intake, recommend to keep legs elevated while sitting Full Code Pt ambulatory. Pt will require a hospitalization pending guardianship and safe placement Quality Stroke Does the patient have a stroke diagnosis?: No VTE Prior VTE?: No VTE Risk Level:: Medical - low VTE Device Contraindication: Treatment Not Indicated VTE Drug Contraindication: Treatment Not Indicated
[2024-01-04 15:39] VITALS: BP 97/55; PULSE 60; RESP 20; TEMP 36.2; O2SAT 97
--- NOTE | 2024-01-04 18:44 | PC.NURSE ---
Patient presenting with increased agitation after having visitors turned away from visiting tonight. Patient began yelling profanity and closed bedroom door. Patient then covering safety camera with curtain. Security contacted and present at bedside. Patient accepted redirection, but remains agitated. Patient made statements about throwing water onto the outlet where the camera is plugged in. No water noted on the floor. VMT room contacted- confirmed camera remains intact and working. Patient resting on bed.
[2024-01-04 19:27] VITALS: BP 98/57; PULSE 67; RESP 16; TEMP 36.1; O2SAT 97
[2024-01-04] MEDS: Acetaminophen 325 MG TABLET 650 MG PO (20:05)
[2024-01-04] MEDS: risperiDONE 2 MG TABLET PO (20:54)
[2024-01-05 03:47] VITALS: BP 105/59; PULSE 55; RESP 16; TEMP 35.5; O2SAT 95
[2024-01-05 07:22] VITALS: BP 100/52; PULSE 54; RESP 16; TEMP 36.1; O2SAT 95
[2024-01-05] MEDS: Buprenorphine/Naloxone 8/2 mg FILM 1 FILM SUBLINGUAL ×2 (08:33→21:28)
[2024-01-05] MEDS: risperiDONE 1 MG TABLET PO (08:34)
[2024-01-05] MEDS: Nicotine Polacrilex 2 MG GUM 4 MG BUCCAL ×7 (08:34→23:39)
[2024-01-05] MEDS: Acetaminophen 325 MG TABLET 650 MG PO ×3 (08:34→22:29)
[2024-01-05] MEDS: Lidocaine 4 % Patch ADH..PATCH 1 PATCH TRANSDERMA (08:34)
[2024-01-05] MEDS: Divalproex Sodium 250 MG TABLET.DR PO ×3 (08:34→21:28)
--- NOTE | 2024-01-05 12:38 | P.PNIM_ITS ---
Subjective Subjective Date of Service: 01/05/24 Interval History: no new complaints, asking for nicotine gum Review of Systems Review of Systems: Yes all other systems are reviewed and are negative Physical Exam 2 Vital Signs: Vital Signs: Last Vital Signs Temp 97 F 01/05/24 07:22 Pulse 54 01/05/24 07:22 Resp 16 01/05/24 07:22 BP 100/52 L 01/05/24 07:22 Pulse Ox 95 01/05/24 07:22 O2 Del Method Room Air 01/05/24 07:22 O2 Flow Rate 3 10/05/23 16:00 BMI result Body Mass Index 22.7 Gen: in no acute distress HEENT: sclera anicteric, moist mucus membranes Neck: supple Lungs: clear to auscultation bilaterally Heart: regular rate and rhythm, no murmurs Abd: soft, non-tender, non-distended Ext: no edema Skin: warm/well-perfused Neuro: alert, no weakness Psych: impaired insight Objective Data Active Medications Acetaminophen (Acetaminophen 325 Mg Tablet) 650 mg PO Q6H PRN PRN Reason: Pain, Mild (Pain Scale 1-3) Last Admin: 01/05/24 08:34 Dose: 650 mg Documented By: ANNA Al Hydroxide/Mg Hydroxide (Magnesium Hydrox/Alum Hydrox 30 Ml Oral.Susp) 30 ml PO Q6H PRN PRN Reason: GI Upset Last Admin: 11/19/23 19:16 Dose: 30 ml Documented By: LAMIN Benzocaine (Throat Lozenge, Medicated Lozenge) 1 lozenge MUCOUS MEM Q2H PRN PRN Reason: Sore Throat Last Admin: 12/10/23 08:25 Dose: 1 lozenge Documented By: CHAS Buprenorphine/Naloxone (Buprenorphine/Naloxone 8/2 Mg Film) 1 film SUBLINGUAL BID [facility] Last Admin: 01/05/24 08:33 Dose: 1 film Documented By: ANNA Divalproex Sodium (Divalproex Sodium 250 Mg Tablet.Dr) 250 mg PO TID [facility] Last Admin: 01/05/24 08:34 Dose: 250 mg Documented By: ANNA Lidocaine (Lidocaine 4 % Patch Adh..Patch) 1 patch TRANSDERMA DAILY [facility]; Protocol Last Admin: 01/05/24 08:34 Dose: 1 patch Documented By: ANNA Nicotine Polacrilex (Nicotine Polacrilex 2 Mg Gum) 4 mg BUCCAL Q2H PRN PRN Reason: nicotine addiction Last Admin: 01/05/24 10:25 Dose: 4 mg Documented By: KIERA Ondansetron HCl (Ondansetron Odt 4 Mg Tab.Rapdis) 4 mg TRANSLINGU Q6H PRN PRN Reason: Nausea and Vomiting Last Admin: 12/01/23 23:36 Dose: 4 mg Documented By: JOE Risperidone (Risperidone 1 Mg Tablet) 1 mg PO DAILY [facility] Last Admin: 01/05/24 08:34 Dose: 1 mg Documented By: ANNA Risperidone (Risperidone 2 Mg Tablet) 2 mg PO BEDTIME [facility] Last Admin: 01/04/24 20:54 Dose: 2 mg Documented By: JUAN Labs 01/03/24 05:58 01/03/24 05:58 Assessment and Plan (1) Hyponatremia: Status: Acute (2) Leg swelling: Status: Acute Plan d94 48yo F with OUD on Suboxone, AUD with Korsakoff syndrome presented with confusion on 09/19/23, awaiting guardianship/LTC placement Korsakoff syndrome - continue quetiapine, valproate, risperidone as per Psychiatry consultation - lacks capacity to make informed medical decisions OUD - Suboxone tobacco abuse - NRT VTE ppx - ambulatory In my clinical judgment, the patient requires continued inpatient hospitalization for the following reasons: placement Total time managing care of this patient today: 25 minutes. Quality Stroke Does the patient have a stroke diagnosis?: No VTE Prior VTE?: No VTE Risk Level:: Medical - low VTE Device Contraindication: Treatment Not Indicated VTE Drug Contraindication: Treatment Not Indicated
[2024-01-05 15:43] VITALS: BP 98/59; PULSE 65; RESP 18; TEMP 36.4; O2SAT 99
[2024-01-05 19:11] VITALS: BP 99/61; PULSE 60; RESP 18; TEMP 36.3; O2SAT 99
[2024-01-05] MEDS: risperiDONE 2 MG TABLET PO (21:28)
[2024-01-06 03:12] VITALS: BP 107/57; PULSE 57; RESP 16; TEMP 36; O2SAT 97
[2024-01-06 08:00] VITALS: BP 104/57; PULSE 56; RESP 16; TEMP 36.4
[2024-01-06] MEDS: risperiDONE 1 MG TABLET PO (08:39)
[2024-01-06] MEDS: Lidocaine 4 % Patch ADH..PATCH 1 PATCH TRANSDERMA (08:39)
[2024-01-06] MEDS: Nicotine Polacrilex 2 MG GUM 4 MG BUCCAL ×5 (08:39→20:36)
[2024-01-06] MEDS: Divalproex Sodium 250 MG TABLET.DR PO ×3 (08:39→20:36)
[2024-01-06] MEDS: Buprenorphine/Naloxone 8/2 mg FILM 1 FILM SUBLINGUAL ×2 (08:39→20:36)
--- NOTE | 2024-01-06 11:54 | HO.PM.IMPN ---
Subjective Subjective Date of Service: 01/06/24 Interval History: no new events Review of Systems Review of Systems: Yes all other systems are reviewed and are negative Physical Exam Vital Signs: Vital Signs: Last Vital Signs Temp 97.6 F 01/06/24 08:00 Pulse 56 01/06/24 08:00 Resp 16 01/06/24 08:00 BP 104/57 L 01/06/24 08:00 Pulse Ox 97 01/06/24 03:12 O2 Del Method Room Air 01/06/24 03:12 O2 Flow Rate 3 10/05/23 16:00 BMI result Body Mass Index 22.7 Gen: in no acute distress HEENT: sclera anicteric, moist mucus membranes Neck: supple Lungs: clear to auscultation bilaterally Heart: regular rate and rhythm, no murmurs Abd: soft, non-tender, non-distended Ext: no edema Skin: warm/well-perfused Neuro: alert, no weakness Psych: impaired insight Objective Data Active Medications Acetaminophen (Acetaminophen 325 Mg Tablet) 650 mg PO Q6H PRN PRN Reason: Pain, Mild (Pain Scale 1-3) Last Admin: 01/05/24 22:29 Dose: 650 mg Documented By: JOE Al Hydroxide/Mg Hydroxide (Magnesium Hydrox/Alum Hydrox 30 Ml Oral.Susp) 30 ml PO Q6H PRN PRN Reason: GI Upset Last Admin: 11/19/23 19:16 Dose: 30 ml Documented By: LAMIN Benzocaine (Throat Lozenge, Medicated Lozenge) 1 lozenge MUCOUS MEM Q2H PRN PRN Reason: Sore Throat Last Admin: 12/10/23 08:25 Dose: 1 lozenge Documented By: CHAS Buprenorphine/Naloxone (Buprenorphine/Naloxone 8/2 Mg Film) 1 film SUBLINGUAL BID [facility] Last Admin: 01/06/24 08:39 Dose: 1 film Documented By: OH Divalproex Sodium (Divalproex Sodium 250 Mg Tablet.Dr) 250 mg PO TID [facility] Last Admin: 01/06/24 08:39 Dose: 250 mg Documented By: OH Lidocaine (Lidocaine 4 % Patch Adh..Patch) 1 patch TRANSDERMA DAILY [facility]; Protocol Last Admin: 01/06/24 08:39 Dose: 1 patch Documented By: OH Nicotine Polacrilex (Nicotine Polacrilex 2 Mg Gum) 4 mg BUCCAL Q2H PRN PRN Reason: nicotine addiction Last Admin: 01/06/24 08:39 Dose: 4 mg Documented By: OH Ondansetron HCl (Ondansetron Odt 4 Mg Tab.Rapdis) 4 mg TRANSLINGU Q6H PRN PRN Reason: Nausea and Vomiting Last Admin: 12/01/23 23:36 Dose: 4 mg Documented By: JOE Risperidone (Risperidone 1 Mg Tablet) 1 mg PO DAILY [facility] Last Admin: 01/06/24 08:39 Dose: 1 mg Documented By: OH Risperidone (Risperidone 2 Mg Tablet) 2 mg PO BEDTIME [facility] Last Admin: 01/05/24 21:28 Dose: 2 mg Documented By: GONZALEZMAR Labs 01/03/24 05:58 01/03/24 05:58 Assessment and Plan (1) Hyponatremia: Status: Acute (2) Leg swelling: Status: Acute Plan d95 48yo F with OUD on Suboxone, AUD with Korsakoff syndrome presented with confusion on 09/19/23, awaiting guardianship/LTC placement Korsakoff syndrome - continue quetiapine, valproate, risperidone as per Psychiatry consultation - lacks capacity to make informed medical decisions OUD - Suboxone tobacco abuse - NRT VTE ppx - ambulatory In my clinical judgment, the patient requires continued inpatient hospitalization for the following reasons: placement Total time managing care of this patient today: 25 minutes. Quality Stroke Does the patient have a stroke diagnosis?: No VTE Prior VTE?: No VTE Risk Level:: Medical - low VTE Device Contraindication: Treatment Not Indicated VTE Drug Contraindication: Treatment Not Indicated
--- NOTE | 2024-01-06 13:05 | MHC.CM.PN ---
spoke with errol riddle at [facility] sent [facility] as requested he is till waiting on don for clinical acceptance
[2024-01-06 15:14] VITALS: BP 139/64; PULSE 64; RESP 16; TEMP 36.1; O2SAT 100
[2024-01-06] MEDS: Acetaminophen 325 MG TABLET 650 MG PO (18:02)
[2024-01-06 19:47] VITALS: BP 99/63; PULSE 68; RESP 14; TEMP 36.1; O2SAT 98
[2024-01-06] MEDS: risperiDONE 2 MG TABLET PO (20:36)
[2024-01-07 03:16] VITALS: BP 101/54; PULSE 68; RESP 14; TEMP 36; O2SAT 94
[2024-01-07 07:39] VITALS: BP 99/57; PULSE 60; RESP 16; TEMP 36.1; O2SAT 96
[2024-01-07] MEDS: risperiDONE 1 MG TABLET PO (08:55)
[2024-01-07] MEDS: Divalproex Sodium 250 MG TABLET.DR PO ×3 (08:55→21:08)
[2024-01-07] MEDS: Nicotine Polacrilex 2 MG GUM 4 MG BUCCAL ×6 (08:55→21:39)
[2024-01-07] MEDS: Lidocaine 4 % Patch ADH..PATCH 1 PATCH TRANSDERMA (08:55)
[2024-01-07] MEDS: Buprenorphine/Naloxone 8/2 mg FILM 1 FILM SUBLINGUAL ×2 (08:55→21:08)
--- NOTE | 2024-01-07 09:02 | MHC.CM.PN ---
A call was placed to [facility]. T/W spoke with Erik Mack. [facility] anticipates accepting the patient the end of this week or early next week. The facility requires state approval as well as [facility] approval. An MDS and PASRR will be needed. An application to [facility] will be given to the HCP/Sis/ Conchis. The application for admission will need to be completed and returned prior to admission. CM will continue to work towards discharge.
--- NOTE | 2024-01-07 10:46 | HO.PM.IMPN ---
Subjective Subjective Date of Service: 01/07/24 Interval History: no new issues Review of Systems Review of Systems: Yes all other systems are reviewed and are negative Physical Exam Vital Signs: Vital Signs: Last Vital Signs Temp 96.9 F 01/07/24 07:39 Pulse 60 01/07/24 07:39 Resp 16 01/07/24 07:39 BP 99/57 L 01/07/24 07:39 Pulse Ox 96 01/07/24 07:39 O2 Del Method Room Air 01/07/24 07:39 O2 Flow Rate 3 10/05/23 16:00 BMI result Body Mass Index 22.7 Gen: in no acute distress HEENT: sclera anicteric, moist mucus membranes Neck: supple Lungs: clear to auscultation bilaterally Heart: regular rate and rhythm, no murmurs Abd: soft, non-tender, non-distended Ext: no edema Skin: warm/well-perfused Neuro: alert, no weakness Psych: impaired insight Objective Data Active Medications Acetaminophen (Acetaminophen 325 Mg Tablet) 650 mg PO Q6H PRN PRN Reason: Pain, Mild (Pain Scale 1-3) Last Admin: 01/06/24 18:02 Dose: 650 mg Documented By: OH Al Hydroxide/Mg Hydroxide (Magnesium Hydrox/Alum Hydrox 30 Ml Oral.Susp) 30 ml PO Q6H PRN PRN Reason: GI Upset Last Admin: 11/19/23 19:16 Dose: 30 ml Documented By: LAMIN Benzocaine (Throat Lozenge, Medicated Lozenge) 1 lozenge MUCOUS MEM Q2H PRN PRN Reason: Sore Throat Last Admin: 12/10/23 08:25 Dose: 1 lozenge Documented By: CHAS Buprenorphine/Naloxone (Buprenorphine/Naloxone 8/2 Mg Film) 1 film SUBLINGUAL BID [facility] Last Admin: 01/07/24 08:55 Dose: 1 film Documented By: JOSEPH Divalproex Sodium (Divalproex Sodium 250 Mg Tablet.) 250 mg PO TID [facility] Last Admin: 01/07/24 08:55 Dose: 250 mg Documented By: JOSEPH Lidocaine (Lidocaine 4 % Patch Adh..Patch) 1 patch TRANSDERMA DAILY [facility]; Protocol Last Admin: 01/07/24 08:55 Dose: 1 patch Documented By: JOSEPH Nicotine Polacrilex (Nicotine Polacrilex 2 Mg Gum) 4 mg BUCCAL Q2H PRN PRN Reason: nicotine addiction Last Admin: 01/07/24 08:55 Dose: 4 mg Documented By: JOSEPH Ondansetron HCl (Ondansetron Odt 4 Mg Tab.Rapdis) 4 mg TRANSLINGU Q6H PRN PRN Reason: Nausea and Vomiting Last Admin: 12/01/23 23:36 Dose: 4 mg Documented By: JOE Risperidone (Risperidone 1 Mg Tablet) 1 mg PO DAILY [facility] Last Admin: 01/07/24 08:55 Dose: 1 mg Documented By: JOSEPH Risperidone (Risperidone 2 Mg Tablet) 2 mg PO BEDTIME [facility] Last Admin: 01/06/24 20:36 Dose: 2 mg Documented By: JOE Labs 01/03/24 05:58 01/03/24 05:58 Assessment and Plan (1) Hyponatremia: Status: Acute (2) Leg swelling: Status: Acute Plan d96 48yo F with OUD on Suboxone, AUD with Korsakoff syndrome presented with confusion on 09/19/23, awaiting guardianship/LTC placement Korsakoff syndrome - continue quetiapine, valproate, risperidone as per Psychiatry consultation - lacks capacity to make informed medical decisions OUD - Suboxone tobacco abuse - NRT VTE ppx - ambulatory In my clinical judgment, the patient requires continued inpatient hospitalization for the following reasons: placement Total time managing care of this patient today: 25 minutes. Quality Stroke Does the patient have a stroke diagnosis?: No VTE Prior VTE?: No VTE Risk Level:: Medical - low VTE Device Contraindication: Treatment Not Indicated VTE Drug Contraindication: Treatment Not Indicated
[2024-01-07] MEDS: Acetaminophen 325 MG TABLET 650 MG PO (12:03)
[2024-01-07 15:29] VITALS: BP 100/60; PULSE 63; RESP 20; TEMP 36.3; O2SAT 97
--- NOTE | 2024-01-07 16:36 | MHC.CM.PN ---
Assisted patient with [facility] meeting RE guardianship. Sister Conchis is permanent guardian.
[2024-01-07 19:09] VITALS: BP 114/67; PULSE 77; RESP 20; TEMP 36.2; O2SAT 99
[2024-01-07] MEDS: risperiDONE 2 MG TABLET PO (21:08)
[2024-01-07 23:26] VITALS: BP 93/54; PULSE 65; RESP 16; TEMP 36.1; O2SAT 97
[2024-01-08 03:17] VITALS: BP 102/55; PULSE 74; RESP 17; TEMP 36.1; O2SAT 97
[2024-01-08 09:07] VITALS: BP 110/61; PULSE 60; RESP 16; TEMP 36.8; O2SAT 97
[2024-01-08] MEDS: Buprenorphine/Naloxone 8/2 mg FILM 1 FILM SUBLINGUAL ×2 (09:10→20:52)
[2024-01-08] MEDS: Acetaminophen 325 MG TABLET 650 MG PO ×2 (09:10→18:29)
[2024-01-08] MEDS: Divalproex Sodium 250 MG TABLET.DR PO ×3 (09:10→20:52)
[2024-01-08] MEDS: Lidocaine 4 % Patch ADH..PATCH 1 PATCH TRANSDERMA (09:11)
[2024-01-08] MEDS: risperiDONE 1 MG TABLET PO (09:11)
[2024-01-08] MEDS: Nicotine Polacrilex 2 MG GUM 4 MG BUCCAL ×5 (09:17→20:54)
--- NOTE | 2024-01-08 12:08 | P.PNIM_ITS ---
Subjective Subjective Date of Service: 01/08/24 Interval History: no new complaints Review of Systems Review of Systems: Yes all other systems are reviewed and are negative Physical Exam 2 Vital Signs: Vital Signs: Last Vital Signs Temp 98.2 F 01/08/24 09:07 Pulse 60 01/08/24 09:07 Resp 16 01/08/24 09:07 BP 110/61 01/08/24 09:07 Pulse Ox 97 01/08/24 09:07 O2 Del Method Room Air 01/08/24 09:07 O2 Flow Rate 3 10/05/23 16:00 BMI result Body Mass Index 22.7 Gen: in no acute distress HEENT: sclera anicteric, moist mucus membranes Neck: supple Lungs: clear to auscultation bilaterally Heart: regular rate and rhythm, no murmurs Abd: soft, non-tender, non-distended Ext: no edema Skin: warm/well-perfused Neuro: alert, no weakness Psych: impaired insight Objective Data Active Medications Acetaminophen (Acetaminophen 325 Mg Tablet) 650 mg PO Q6H PRN PRN Reason: Pain, Mild (Pain Scale 1-3) Last Admin: 01/08/24 09:10 Dose: 650 mg Documented By: SHERRON Al Hydroxide/Mg Hydroxide (Magnesium Hydrox/Alum Hydrox 30 Ml Oral.Susp) 30 ml PO Q6H PRN PRN Reason: GI Upset Last Admin: 11/19/23 19:16 Dose: 30 ml Documented By: LAMIN Benzocaine (Throat Lozenge, Medicated Lozenge) 1 lozenge MUCOUS MEM Q2H PRN PRN Reason: Sore Throat Last Admin: 12/10/23 08:25 Dose: 1 lozenge Documented By: CHAS Buprenorphine/Naloxone (Buprenorphine/Naloxone 8/2 Mg Film) 1 film SUBLINGUAL BID [facility] Last Admin: 01/08/24 09:10 Dose: 1 film Documented By: SHERRON Divalproex Sodium (Divalproex Sodium 250 Mg Tablet.Dr) 250 mg PO TID [facility] Last Admin: 01/08/24 09:10 Dose: 250 mg Documented By: SHERRON Lidocaine (Lidocaine 4 % Patch Adh..Patch) 1 patch TRANSDERMA DAILY [facility]; Protocol Last Admin: 01/08/24 09:11 Dose: 1 patch Documented By: SHERRON Nicotine Polacrilex (Nicotine Polacrilex 2 Mg Gum) 4 mg BUCCAL Q2H PRN PRN Reason: nicotine addiction Last Admin: 01/08/24 09:17 Dose: 4 mg Documented By: SHERRON Ondansetron HCl (Ondansetron Odt 4 Mg Tab.Rapdis) 4 mg TRANSLINGU Q6H PRN PRN Reason: Nausea and Vomiting Last Admin: 12/01/23 23:36 Dose: 4 mg Documented By: JOE Risperidone (Risperidone 1 Mg Tablet) 1 mg PO DAILY [facility] Last Admin: 01/08/24 09:11 Dose: 1 mg Documented By: SHERRON Risperidone (Risperidone 2 Mg Tablet) 2 mg PO BEDTIME [facility] Last Admin: 01/07/24 21:08 Dose: 2 mg Documented By: COLASR Labs 01/03/24 05:58 01/03/24 05:58 Assessment and Plan (1) Hyponatremia: Status: Acute (2) Leg swelling: Status: Acute Plan d97 48yo F with OUD on Suboxone, AUD with Korsakoff syndrome presented with confusion on 09/19/23, awaiting guardianship/LTC placement Korsakoff syndrome - continue quetiapine, valproate, risperidone as per Psychiatry consultation - lacks capacity to make informed medical decisions OUD - Suboxone tobacco abuse - NRT VTE ppx - ambulatory In my clinical judgment, the patient requires continued inpatient hospitalization for the following reasons: placement Total time managing care of this patient today: 25 minutes. Quality Stroke Does the patient have a stroke diagnosis?: No VTE Prior VTE?: No VTE Risk Level:: Medical - low VTE Device Contraindication: Treatment Not Indicated VTE Drug Contraindication: Treatment Not Indicated
[2024-01-08 15:10] VITALS: BP 115/80; PULSE 69; RESP 18; TEMP 36.3; O2SAT 98
--- NOTE | 2024-01-08 15:17 | MHC.CM.PN ---
[facility] HAS ACCEPTED PT WORKING ON PAPERWORK W/FAMILY DC EITHER FRI OR MON
[2024-01-08 19:21] VITALS: BP 108/60; PULSE 79; RESP 18; TEMP 36.6; O2SAT 98
[2024-01-08] MEDS: risperiDONE 2 MG TABLET PO (20:53)
[2024-01-09 03:59] VITALS: BP 111/63; PULSE 63; RESP 16; TEMP 36; O2SAT 93
[2024-01-09] MEDS: Acetaminophen 325 MG TABLET 650 MG PO ×2 (06:18→19:57)
[2024-01-09] MEDS: Nicotine Polacrilex 2 MG GUM 4 MG BUCCAL ×5 (06:18→20:02)
[2024-01-09 07:58] VITALS: BP 98/55; PULSE 67; RESP 17; TEMP 36.1; O2SAT 95
[2024-01-09] MEDS: Lidocaine 4 % Patch ADH..PATCH 1 PATCH TRANSDERMA (09:19)
[2024-01-09] MEDS: Divalproex Sodium 250 MG TABLET.DR PO ×3 (09:21→19:58)
[2024-01-09] MEDS: Buprenorphine/Naloxone 8/2 mg FILM 1 FILM SUBLINGUAL ×2 (09:21→19:58)
[2024-01-09] MEDS: risperiDONE 1 MG TABLET PO (09:21)
--- NOTE | 2024-01-09 09:55 | HO.PM.IMPN ---
Subjective Subjective Date of Service: 01/09/24 Interval History: no complaints Review of Systems Review of Systems: Yes all other systems are reviewed and are negative Physical Exam Vital Signs: Vital Signs: Last Vital Signs Temp 96.9 F 01/09/24 07:58 Pulse 67 01/09/24 07:58 Resp 17 01/09/24 07:58 BP 98/55 L 01/09/24 07:58 Pulse Ox 95 01/09/24 07:58 O2 Del Method Room Air 01/09/24 07:58 O2 Flow Rate 3 10/05/23 16:00 BMI result Body Mass Index 22.7 Gen: in no acute distress Lungs: normal efforts Neuro: alert, no weakness Psych: impaired insight Objective Data Active Medications Acetaminophen (Acetaminophen 325 Mg Tablet) 650 mg PO Q6H PRN PRN Reason: Pain, Mild (Pain Scale 1-3) Last Admin: 01/09/24 06:18 Dose: 650 mg Documented By: JOE Al Hydroxide/Mg Hydroxide (Magnesium Hydrox/Alum Hydrox 30 Ml Oral.Susp) 30 ml PO Q6H PRN PRN Reason: GI Upset Last Admin: 11/19/23 19:16 Dose: 30 ml Documented By: HARJEETM Benzocaine (Throat Lozenge, Medicated Lozenge) 1 lozenge MUCOUS MEM Q2H PRN PRN Reason: Sore Throat Last Admin: 12/10/23 08:25 Dose: 1 lozenge Documented By: CHAS Buprenorphine/Naloxone (Buprenorphine/Naloxone 8/2 Mg Film) 1 film SUBLINGUAL BID [facility] Last Admin: 01/09/24 09:21 Dose: 1 film Documented By: ASIF Divalproex Sodium (Divalproex Sodium 250 Mg Tablet.Dr) 250 mg PO TID [facility] Last Admin: 01/09/24 09:21 Dose: 250 mg Documented By: ASIF Lidocaine (Lidocaine 4 % Patch Adh..Patch) 1 patch TRANSDERMA DAILY [facility]; Protocol Last Admin: 01/09/24 09:19 Dose: 1 patch Documented By: ASIF Nicotine Polacrilex (Nicotine Polacrilex 2 Mg Gum) 4 mg BUCCAL Q2H PRN PRN Reason: nicotine addiction Last Admin: 01/09/24 08:18 Dose: 4 mg Documented By: ALEA Ondansetron HCl (Ondansetron Odt 4 Mg Tab.Rapdis) 4 mg TRANSLINGU Q6H PRN PRN Reason: Nausea and Vomiting Last Admin: 12/01/23 23:36 Dose: 4 mg Documented By: JOE Risperidone (Risperidone 1 Mg Tablet) 1 mg PO DAILY [facility] Last Admin: 01/09/24 09:21 Dose: 1 mg Documented By: ASIF Risperidone (Risperidone 2 Mg Tablet) 2 mg PO BEDTIME [facility] Last Admin: 01/08/24 20:53 Dose: 2 mg Documented By: JOE Labs 01/03/24 05:58 01/03/24 05:58 Assessment and Plan (1) Hyponatremia: Status: Acute (2) Leg swelling: Status: Acute Plan d98 48yo F with OUD on Suboxone, AUD with Korsakoff syndrome presented with confusion on 09/19/23, awaiting guardianship/LTC placement Korsakoff syndrome - continue quetiapine, valproate, risperidone as per Psychiatry consultation - lacks capacity to make informed medical decisions OUD - Suboxone tobacco abuse - NRT VTE ppx - ambulatory In my clinical judgment, the patient requires continued inpatient hospitalization for the following reasons: placement Total time managing care of this patient today: 25 minutes. Quality Stroke Does the patient have a stroke diagnosis?: No VTE Prior VTE?: No VTE Risk Level:: Medical - low VTE Device Contraindication: Treatment Not Indicated VTE Drug Contraindication: Treatment Not Indicated
[2024-01-09 15:48] VITALS: BP 104/70; PULSE 79; RESP 16; TEMP 36.5; O2SAT 97
[2024-01-09] MEDS: risperiDONE 2 MG TABLET PO (19:58)
[2024-01-09 20:00] VITALS: BP 99/52; PULSE 76; RESP 20; TEMP 36.4; O2SAT 98
[2024-01-10 03:50] VITALS: BP 106/53; PULSE 65; RESP 20; TEMP 36.2; O2SAT 95
[2024-01-10 07:47] VITALS: BP 104/57; PULSE 77; RESP 16; TEMP 36.6; O2SAT 97
[2024-01-10] MEDS: Nicotine Polacrilex 2 MG GUM 4 MG BUCCAL ×5 (08:10→23:31)
[2024-01-10] MEDS: Lidocaine 4 % Patch ADH..PATCH 1 PATCH TRANSDERMA (09:18)
[2024-01-10] MEDS: risperiDONE 1 MG TABLET PO (09:19)
[2024-01-10] MEDS: Divalproex Sodium 250 MG TABLET.DR PO ×3 (09:19→19:59)
[2024-01-10] MEDS: Buprenorphine/Naloxone 8/2 mg FILM 1 FILM SUBLINGUAL ×2 (09:20→19:59)
--- NOTE | 2024-01-10 11:49 | MHC.CM.PN ---
CM received notification that patient was denied for [facility] waiver, as they cannot accept from acute care facilities. They are aware of intent to dc to [facility] and recommend submitting another application after being admitted to SNF. EC is aware and will submit another application when appropriate. Alecia from [facility] updated on plan.
--- NOTE | 2024-01-10 12:26 | P.PNIM_ITS ---
Subjective Subjective Date of Service: 01/10/24 Interval History: no new complaints Review of Systems Review of Systems: Yes all other systems are reviewed and are negative Physical Exam 2 Vital Signs: Vital Signs: Last Vital Signs Temp 97.8 F 01/10/24 07:47 Pulse 77 01/10/24 07:47 Resp 16 01/10/24 07:47 BP 104/57 L 01/10/24 07:47 Pulse Ox 97 01/10/24 07:47 O2 Del Method Room Air 01/10/24 07:47 O2 Flow Rate 3 10/05/23 16:00 BMI result Body Mass Index 22.7 Gen: in no acute distress Lungs: normal efforts Neuro: alert, no weakness Psych: impaired insight Objective Data Active Medications Acetaminophen (Acetaminophen 325 Mg Tablet) 650 mg PO Q6H PRN PRN Reason: Pain, Mild (Pain Scale 1-3) Last Admin: 01/09/24 19:57 Dose: 650 mg Documented By: REE Al Hydroxide/Mg Hydroxide (Magnesium Hydrox/Alum Hydrox 30 Ml Oral.Susp) 30 ml PO Q6H PRN PRN Reason: GI Upset Last Admin: 11/19/23 19:16 Dose: 30 ml Documented By: LAMIN Benzocaine (Throat Lozenge, Medicated Lozenge) 1 lozenge MUCOUS MEM Q2H PRN PRN Reason: Sore Throat Last Admin: 12/10/23 08:25 Dose: 1 lozenge Documented By: CHAS Buprenorphine/Naloxone (Buprenorphine/Naloxone 8/2 Mg Film) 1 film SUBLINGUAL BID [facility] Last Admin: 01/10/24 09:20 Dose: 1 film Documented By: ASIF Divalproex Sodium (Divalproex Sodium 250 Mg Tablet.Dr) 250 mg PO TID [facility] Last Admin: 01/10/24 09:19 Dose: 250 mg Documented By: ASIF Lidocaine (Lidocaine 4 % Patch Adh..Patch) 1 patch TRANSDERMA DAILY [facility]; Protocol Last Admin: 01/10/24 09:18 Dose: 1 patch Documented By: ASIF Nicotine Polacrilex (Nicotine Polacrilex 2 Mg Gum) 4 mg BUCCAL Q2H PRN PRN Reason: nicotine addiction Last Admin: 01/10/24 08:10 Dose: 4 mg Documented By: HO.GRAZIC Ondansetron HCl (Ondansetron Odt 4 Mg Tab.Rapdis) 4 mg TRANSLINGU Q6H PRN PRN Reason: Nausea and Vomiting Last Admin: 12/01/23 23:36 Dose: 4 mg Documented By: JOE Risperidone (Risperidone 1 Mg Tablet) 1 mg PO DAILY [facility] Last Admin: 01/10/24 09:19 Dose: 1 mg Documented By: ASIF Risperidone (Risperidone 2 Mg Tablet) 2 mg PO BEDTIME [facility] Last Admin: 01/09/24 19:58 Dose: 2 mg Documented By: BEIT Labs 01/03/24 05:58 01/03/24 05:58 Assessment and Plan (1) Hyponatremia: Status: Acute (2) Leg swelling: Status: Acute Plan d99 48yo F with OUD on Suboxone, AUD with Korsakoff syndrome presented with confusion on 09/19/23, awaiting guardianship/LTC placement Korsakoff syndrome - continue quetiapine, valproate, risperidone as per Psychiatry consultation - lacks capacity to make informed medical decisions OUD - Suboxone tobacco abuse - NRT VTE ppx - ambulatory In my clinical judgment, the patient requires continued inpatient hospitalization for the following reasons: placement Total time managing care of this patient today: 25 minutes. Quality Stroke Does the patient have a stroke diagnosis?: No VTE Prior VTE?: No VTE Risk Level:: Medical - low VTE Device Contraindication: Treatment Not Indicated VTE Drug Contraindication: Treatment Not Indicated
[2024-01-10 15:27] VITALS: BP 107/62; PULSE 74; RESP 16; TEMP 36.2; O2SAT 97
[2024-01-10 19:30] VITALS: BP 100/59; PULSE 79; RESP 16; TEMP 36.2; O2SAT 99
[2024-01-10] MEDS: risperiDONE 2 MG TABLET PO (19:59)
[2024-01-10] MEDS: Acetaminophen 325 MG TABLET 650 MG PO (19:59)
[2024-01-11 03:36] VITALS: BP 98/56; PULSE 60; RESP 16; TEMP 36.1; O2SAT 96
[2024-01-11 07:18] VITALS: BP 92/53; PULSE 62; RESP 16; TEMP 36.4; O2SAT 98
[2024-01-11] MEDS: Nicotine Polacrilex 2 MG GUM 4 MG BUCCAL ×7 (07:34→22:10)
[2024-01-11] MEDS: Lidocaine 4 % Patch ADH..PATCH 1 PATCH TRANSDERMA (08:30)
[2024-01-11] MEDS: Buprenorphine/Naloxone 8/2 mg FILM 1 FILM SUBLINGUAL ×2 (08:30→20:10)
[2024-01-11] MEDS: Divalproex Sodium 250 MG TABLET.DR PO ×3 (08:30→20:10)
[2024-01-11] MEDS: risperiDONE 1 MG TABLET PO (08:30)
--- NOTE | 2024-01-11 13:01 | HO.PM.IMPN ---
Subjective Subjective Date of Service: 01/11/24 Interval History: Complaining of left shoulder pain, denies trauma, requesting for Tylenol, no other acute issues overnight. Review of Systems All other system reviewed and negative. Physical Exam Vital Signs: Vital Signs: Last Vital Signs Temp 97.5 F 01/11/24 07:18 Pulse 62 01/11/24 07:18 Resp 16 01/11/24 07:18 BP 92/53 L 01/11/24 07:18 Pulse Ox 98 01/11/24 07:18 O2 Del Method Room Air 01/11/24 07:18 O2 Flow Rate 3 10/05/23 16:00 BMI result Body Mass Index 22.7 Const: Other: General awake alert, in no acute distress. Neck supple, no JVD. CVS regular rate rhythm, Respiratory lungs clear to auscultation, no respiratory distress, no wheeze, no rhonchi. Gastrointestinal abdomen soft, non tender, bowel sounds audible. Extremities lower extremity edema resolved Left shoulder limited range of motion due to pain, no redness, no swelling Neuro speech clear, no focal weakness. Psych impaired insight. Objective Data Active Medications Acetaminophen (Acetaminophen 325 Mg Tablet) 650 mg PO Q6H PRN PRN Reason: Pain, Mild (Pain Scale 1-3) Last Admin: 01/10/24 19:59 Dose: 650 mg Documented By: MAICO Al Hydroxide/Mg Hydroxide (Magnesium Hydrox/Alum Hydrox 30 Ml Oral.Susp) 30 ml PO Q6H PRN PRN Reason: GI Upset Last Admin: 11/19/23 19:16 Dose: 30 ml Documented By: LAMIN Benzocaine (Throat Lozenge, Medicated Lozenge) 1 lozenge MUCOUS MEM Q2H PRN PRN Reason: Sore Throat Last Admin: 12/10/23 08:25 Dose: 1 lozenge Documented By: CHAS Buprenorphine/Naloxone (Buprenorphine/Naloxone 8/2 Mg Film) 1 film SUBLINGUAL BID [facility] Last Admin: 01/11/24 08:30 Dose: 1 film Documented By: JOSEPH Divalproex Sodium (Divalproex Sodium 250 Mg Tablet.Dr) 250 mg PO TID [facility] Last Admin: 01/11/24 08:30 Dose: 250 mg Documented By: JOSEPH Lidocaine (Lidocaine 4 % Patch Adh..Patch) 1 patch TRANSDERMA DAILY [facility]; Protocol Last Admin: 01/11/24 08:30 Dose: 1 patch Documented By: JOSEPH Nicotine Polacrilex (Nicotine Polacrilex 2 Mg Gum) 4 mg BUCCAL Q2H PRN PRN Reason: nicotine addiction Last Admin: 01/11/24 12:11 Dose: 4 mg Documented By: JOSEPH Ondansetron HCl (Ondansetron Odt 4 Mg Tab.Rapdis) 4 mg TRANSLINGU Q6H PRN PRN Reason: Nausea and Vomiting Last Admin: 12/01/23 23:36 Dose: 4 mg Documented By: JOE Risperidone (Risperidone 1 Mg Tablet) 1 mg PO DAILY [facility] Last Admin: 01/11/24 08:30 Dose: 1 mg Documented By: JOSEPH Risperidone (Risperidone 2 Mg Tablet) 2 mg PO BEDTIME [facility] Last Admin: 01/10/24 19:59 Dose: 2 mg Documented By: MAICO Labs 01/03/24 05:58 01/03/24 05:58 Assessment and Plan (1) Hyponatremia: Status: Acute (2) Leg swelling: Status: Acute Plan d99 48yo F with OUD on Suboxone, AUD with Korsakoff syndrome presented with confusion on 09/19/23, awaiting guardianship/LTC placement Left shoulder pain likely musculoskeletal will you analgesics/hot pack follow clinical course Korsakoff syndrome - continue quetiapine, valproate, risperidone as per Psychiatry consultation - lacks capacity to make informed medical decisions OUD - Suboxone tobacco abuse - NRT VTE ppx - ambulatory In my clinical judgment, the patient requires continued inpatient hospitalization for the following reasons: placement Total time managing care of this patient today: 25 minutes. Quality Stroke Does the patient have a stroke diagnosis?: No VTE Prior VTE?: No VTE Risk Level:: Medical - low VTE Device Contraindication: Treatment Not Indicated VTE Drug Contraindication: Treatment Not Indicated
[2024-01-11] MEDS: Acetaminophen 325 MG TABLET 650 MG PO ×2 (14:35→22:09)
[2024-01-11 15:31] VITALS: BP 109/64; PULSE 74; RESP 18; TEMP 36.2; O2SAT 99
[2024-01-11 18:56] VITALS: BP 111/66; PULSE 75; RESP 18; TEMP 36.1; O2SAT 100
[2024-01-11] MEDS: risperiDONE 2 MG TABLET PO (20:10)
[2024-01-12] MEDS: Nicotine Polacrilex 2 MG GUM 4 MG BUCCAL ×9 (02:23→23:58)
[2024-01-12 07:12] VITALS: BP 100/60; PULSE 63; RESP 16; TEMP 36.7; O2SAT 94
[2024-01-12] MEDS: risperiDONE 1 MG TABLET PO (08:39)
[2024-01-12] MEDS: Buprenorphine/Naloxone 8/2 mg FILM 1 FILM SUBLINGUAL ×2 (08:39→20:46)
[2024-01-12] MEDS: Lidocaine 4 % Patch ADH..PATCH 1 PATCH TRANSDERMA (08:39)
[2024-01-12] MEDS: Divalproex Sodium 250 MG TABLET.DR PO ×3 (08:40→20:46)
[2024-01-12] MEDS: Acetaminophen 325 MG TABLET 650 MG PO ×2 (09:24→20:46)
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
[2024-01-12 15:17] VITALS: BP 105/61; PULSE 84; RESP 16; TEMP 36.6; O2SAT 97
[2024-01-12 19:20] VITALS: BP 117/53; PULSE 77; RESP 16; TEMP 36.4; O2SAT 98
[2024-01-12] MEDS: risperiDONE 2 MG TABLET PO (20:46)
[2024-01-13 03:16] VITALS: BP 117/67; PULSE 73; RESP 16; TEMP 36.6; O2SAT 98
[2024-01-13 07:45] VITALS: BP 93/51; PULSE 65; RESP 16; TEMP 36; O2SAT 99
[2024-01-13] MEDS: Acetaminophen 325 MG TABLET 650 MG PO ×3 (08:31→21:58)
[2024-01-13] MEDS: Buprenorphine/Naloxone 8/2 mg FILM 1 FILM SUBLINGUAL ×2 (08:31→20:41)
[2024-01-13] MEDS: Nicotine Polacrilex 2 MG GUM 4 MG BUCCAL ×5 (08:31→23:24)
[2024-01-13] MEDS: Divalproex Sodium 250 MG TABLET.DR PO ×3 (08:31→20:41)
[2024-01-13] MEDS: risperiDONE 1 MG TABLET PO (08:31)
[2024-01-13] MEDS: Lidocaine 4 % Patch ADH..PATCH 1 PATCH TRANSDERMA (08:31)
--- NOTE | 2024-01-13 10:35 | P.PNIM_ITS ---
Subjective Subjective Date of Service: 01/13/24 Interval History: Offers no acute complaints, tolerating diet, shoulder pain has improved, no other acute issues overnight, no behavioral issues. Review of Systems All other system reviewed and negative. Physical Exam 2 Vital Signs: Vital Signs: Last Vital Signs Temp 96.8 F 01/13/24 07:45 Pulse 65 01/13/24 07:45 Resp 16 01/13/24 07:45 BP 93/51 L 01/13/24 07:45 Pulse Ox 99 01/13/24 07:45 O2 Del Method Room Air 01/13/24 07:45 O2 Flow Rate 3 10/05/23 16:00 BMI result Body Mass Index 22.7 Const: Other: General awake alert, in no acute distress. Neck supple, no JVD. CVS regular rate rhythm, Respiratory lungs clear to auscultation, no respiratory distress, no wheeze, no rhonchi. Gastrointestinal abdomen soft, non tender, bowel sounds audible. Extremities lower extremity edema resolved Left shoulder good range of motion. Neuro speech clear, no focal weakness. Psych impaired insight. Objective Data Active Medications Acetaminophen (Acetaminophen 325 Mg Tablet) 650 mg PO Q6H PRN PRN Reason: Pain, Mild (Pain Scale 1-3) Last Admin: 01/13/24 08:31 Dose: 650 mg Documented By: SILVESTRE Al Hydroxide/Mg Hydroxide (Magnesium Hydrox/Alum Hydrox 30 Ml Oral.Susp) 30 ml PO Q6H PRN PRN Reason: GI Upset Last Admin: 11/19/23 19:16 Dose: 30 ml Documented By: ODSWATHIM Benzocaine (Throat Lozenge, Medicated Lozenge) 1 lozenge MUCOUS MEM Q2H PRN PRN Reason: Sore Throat Last Admin: 12/10/23 08:25 Dose: 1 lozenge Documented By: CHAS Buprenorphine/Naloxone (Buprenorphine/Naloxone 8/2 Mg Film) 1 film SUBLINGUAL BID [facility] Last Admin: 01/13/24 08:31 Dose: 1 film Documented By: SILVESTRE Divalproex Sodium (Divalproex Sodium 250 Mg Tablet.) 250 mg PO TID [facility] Last Admin: 01/13/24 08:31 Dose: 250 mg Documented By: SILVESTRE Lidocaine (Lidocaine 4 % Patch Adh..Patch) 1 patch TRANSDERMA DAILY [facility]; Protocol Last Admin: 01/13/24 08:31 Dose: 1 patch Documented By: SILVESTRE Nicotine Polacrilex (Nicotine Polacrilex 2 Mg Gum) 4 mg BUCCAL Q2H PRN PRN Reason: nicotine addiction Last Admin: 01/13/24 08:31 Dose: 4 mg Documented By: SILVESTRE Ondansetron HCl (Ondansetron Odt 4 Mg Tab.Rapdis) 4 mg TRANSLINGU Q6H PRN PRN Reason: Nausea and Vomiting Last Admin: 12/01/23 23:36 Dose: 4 mg Documented By: JOE Risperidone (Risperidone 1 Mg Tablet) 1 mg PO DAILY [facility] Last Admin: 01/13/24 08:31 Dose: 1 mg Documented By: SILVESTRE Risperidone (Risperidone 2 Mg Tablet) 2 mg PO BEDTIME [facility] Last Admin: 01/12/24 20:46 Dose: 2 mg Documented By: JACKI Labs 01/03/24 05:58 01/03/24 05:58 Assessment and Plan (1) Hyponatremia: Status: Acute (2) Leg swelling: Status: Acute Plan 48yo F with OUD on Suboxone, AUD with Korsakoff syndrome presented with confusion on 09/19/23, awaiting guardianship/LTC placement Left shoulder pain improved, continue Tylenol prn/hot pack, follow clinical course. Korsakoff syndrome - continue quetiapine, valproate, risperidone as per Psychiatry consultation - lacks capacity to make informed medical decisions. OUD - Suboxone tobacco abuse - NRT VTE ppx - ambulatory In my clinical judgment, the patient requires continued inpatient hospitalization for the following reasons: placement Total time managing care of this patient today: 25 minutes. Quality Stroke Does the patient have a stroke diagnosis?: No VTE Prior VTE?: No VTE Risk Level:: Medical - low VTE Device Contraindication: Treatment Not Indicated VTE Drug Contraindication: Treatment Not Indicated
--- NOTE | 2024-01-13 13:30 | MHC.CM.PN ---
The patient is in need of long-term care in a skilled facility due to the severity of her dementia. While she has physical independence- she needs cueing and reminding for bathing dressing and grooming. She is unable to manage her medications. She is also unable to prepare herself food. She would benefit from the structure, activities and environment offer by a long-term facility.
--- NOTE | 2024-01-13 14:16 | MHC.CM.PN ---
Addendum entered by Natalie Kemp 01/13/24 16:22: CM will continue to follow for placement. Original Note: CM continues to work with [facility] for placement. Another list of was received from Erik Mack. The documents requested have been provided. DC barriers are insurance auth and state approval.
[2024-01-13 15:38] VITALS: BP 109/64; PULSE 63; RESP 12; TEMP 36.1; O2SAT 97
[2024-01-13 19:41] VITALS: BP 111/62; PULSE 73; RESP 16; TEMP 36.3; O2SAT 97
[2024-01-13] MEDS: risperiDONE 2 MG TABLET PO (20:41)
[2024-01-14 04:00] VITALS: BP 95/50; PULSE 69; RESP 16; TEMP 36.3; O2SAT 98
[2024-01-14 08:00] VITALS: BP 98/57; PULSE 74; RESP 12; TEMP 36.1; O2SAT 96
[2024-01-14] MEDS: Buprenorphine/Naloxone 8/2 mg FILM 1 FILM SUBLINGUAL ×2 (08:44→20:30)
[2024-01-14] MEDS: Divalproex Sodium 250 MG TABLET.DR PO ×3 (08:44→20:30)
[2024-01-14] MEDS: Nicotine Polacrilex 2 MG GUM 4 MG BUCCAL ×5 (08:44→22:21)
[2024-01-14] MEDS: risperiDONE 1 MG TABLET PO (08:44)
[2024-01-14] MEDS: Lidocaine 4 % Patch ADH..PATCH 1 PATCH TRANSDERMA (08:44)
[2024-01-14] MEDS: Acetaminophen 325 MG TABLET 650 MG PO ×2 (08:45→15:34)
--- NOTE | 2024-01-14 10:32 | HO.PM.IMPN ---
Subjective Subjective Date of Service: 01/14/24 Interval History: Feels tired, offers no acute complaints. Being followed for placement Review of Systems All other system reviewed and negative Physical Exam Vital Signs: Vital Signs: Last Vital Signs Temp 97.0 F 01/14/24 08:00 Pulse 74 01/14/24 08:00 Resp 12 01/14/24 08:00 BP 98/57 L 01/14/24 08:00 Pulse Ox 96 01/14/24 08:00 O2 Del Method Room Air 01/14/24 08:00 O2 Flow Rate 3 10/05/23 16:00 BMI result Body Mass Index 22.7 Const: Other: General awake alert, in no acute distress. Neck supple, no JVD. CVS regular rate rhythm, Respiratory lungs clear to auscultation, no respiratory distress, no wheeze, no rhonchi. Gastrointestinal abdomen soft, non tender, bowel sounds audible. Extremities lower extremity edema resolved Left shoulder good range of motion. Neuro speech clear, no focal weakness. Psych impaired insight. Objective Data Active Medications Acetaminophen (Acetaminophen 325 Mg Tablet) 650 mg PO Q6H PRN PRN Reason: Pain, Mild (Pain Scale 1-3) Last Admin: 01/14/24 08:45 Dose: 650 mg Documented By: SILVESTRE Al Hydroxide/Mg Hydroxide (Magnesium Hydrox/Alum Hydrox 30 Ml Oral.Susp) 30 ml PO Q6H PRN PRN Reason: GI Upset Last Admin: 11/19/23 19:16 Dose: 30 ml Documented By: LARISBaldo Benzocaine (Throat Lozenge, Medicated Lozenge) 1 lozenge MUCOUS MEM Q2H PRN PRN Reason: Sore Throat Last Admin: 12/10/23 08:25 Dose: 1 lozenge Documented By: CHAS Buprenorphine/Naloxone (Buprenorphine/Naloxone 8/2 Mg Film) 1 film SUBLINGUAL BID [facility] Last Admin: 01/14/24 08:44 Dose: 1 film Documented By: SILVESTRE Divalproex Sodium (Divalproex Sodium 250 Mg Tablet.Dr) 250 mg PO TID [facility] Last Admin: 01/14/24 08:44 Dose: 250 mg Documented By: SILVESTRE Lidocaine (Lidocaine 4 % Patch Adh..Patch) 1 patch TRANSDERMA DAILY [facility]; Protocol Last Admin: 01/14/24 08:44 Dose: 1 patch Documented By: SILVESTRE Nicotine Polacrilex (Nicotine Polacrilex 2 Mg Gum) 4 mg BUCCAL Q2H PRN PRN Reason: nicotine addiction Last Admin: 01/14/24 08:44 Dose: 4 mg Documented By: SILVESTRE Ondansetron HCl (Ondansetron Odt 4 Mg Tab.Rapdis) 4 mg TRANSLINGU Q6H PRN PRN Reason: Nausea and Vomiting Last Admin: 12/01/23 23:36 Dose: 4 mg Documented By: JOE Risperidone (Risperidone 1 Mg Tablet) 1 mg PO DAILY [facility] Last Admin: 01/14/24 08:44 Dose: 1 mg Documented By: SILVESTRE Risperidone (Risperidone 2 Mg Tablet) 2 mg PO BEDTIME [facility] Last Admin: 01/13/24 20:41 Dose: 2 mg Documented By: JACKI Labs 01/03/24 05:58 01/03/24 05:58 Assessment and Plan (1) Hyponatremia: Status: Acute (2) Leg swelling: Status: Acute Plan 48yo F with OUD on Suboxone, AUD with Korsakoff syndrome presented with confusion on 09/19/23, awaiting guardianship/LTC placement Left shoulder pain resolved. Korsakoff syndrome - continue quetiapine, valproate, risperidone as per Psychiatry consultation - lacks capacity to make informed medical decisions. OUD - Suboxone tobacco abuse - NRT VTE ppx - ambulatory In my clinical judgment, the patient requires continued inpatient hospitalization for the following reasons: placement Total time managing care of this patient today: 25 minutes. Quality Stroke Does the patient have a stroke diagnosis?: No VTE Prior VTE?: No VTE Risk Level:: Medical - low VTE Device Contraindication: Treatment Not Indicated VTE Drug Contraindication: Treatment Not Indicated
[2024-01-14 15:27] VITALS: BP 95/58; PULSE 70; RESP 12; TEMP 36.3; O2SAT 97
[2024-01-14 19:16] VITALS: BP 104/58; PULSE 72; RESP 14; TEMP 36; O2SAT 97
[2024-01-14] MEDS: risperiDONE 2 MG TABLET PO (20:30)
[2024-01-15] MEDS: Nicotine Polacrilex 2 MG GUM 4 MG BUCCAL ×6 (02:57→22:11)
[2024-01-15 03:46] VITALS: BP 92/51; PULSE 74; RESP 16; TEMP 36.4; O2SAT 95
[2024-01-15 06:59] VITALS: BP 93/59; PULSE 72; RESP 16; TEMP 36.4; O2SAT 97
[2024-01-15] MEDS: risperiDONE 1 MG TABLET PO (08:50)
[2024-01-15] MEDS: Divalproex Sodium 250 MG TABLET.DR PO ×3 (08:50→19:49)
[2024-01-15] MEDS: Buprenorphine/Naloxone 8/2 mg FILM 1 FILM SUBLINGUAL ×2 (08:51→19:49)
[2024-01-15] MEDS: Lidocaine 4 % Patch ADH..PATCH 1 PATCH TRANSDERMA (09:02)
--- NOTE | 2024-01-15 09:49 | HO.PM.IMPN ---
Subjective Subjective Date of Service: 01/15/24 Interval History: Offers no acute complaints, no behavioral issues, sleeping well tolerating diet. No acute events overnight. Review of Systems All other system reviewed and negative. Physical Exam Vital Signs: Vital Signs: Last Vital Signs Temp 97.6 F 01/15/24 06:59 Pulse 72 01/15/24 06:59 Resp 16 01/15/24 06:59 BP 93/59 L 01/15/24 06:59 Pulse Ox 97 01/15/24 06:59 O2 Del Method Room Air 01/15/24 06:59 O2 Flow Rate 3 10/05/23 16:00 BMI result Body Mass Index 22.7 Const: Other: General awake alert, in no acute distress. CVS regular rate rhythm, Respiratory lungs clear to auscultation, no respiratory distress, no wheeze, no rhonchi. Gastrointestinal abdomen soft, non tender, bowel sounds audible. Extremities lower extremity edema resolved Neuro speech clear, no focal weakness. Psych impaired insight. Objective Data Active Medications Acetaminophen (Acetaminophen 325 Mg Tablet) 650 mg PO Q6H PRN PRN Reason: Pain, Mild (Pain Scale 1-3) Last Admin: 01/14/24 15:34 Dose: 650 mg Documented By: SILVESTRE Al Hydroxide/Mg Hydroxide (Magnesium Hydrox/Alum Hydrox 30 Ml Oral.Susp) 30 ml PO Q6H PRN PRN Reason: GI Upset Last Admin: 11/19/23 19:16 Dose: 30 ml Documented By: LAMIN Benzocaine (Throat Lozenge, Medicated Lozenge) 1 lozenge MUCOUS MEM Q2H PRN PRN Reason: Sore Throat Last Admin: 12/10/23 08:25 Dose: 1 lozenge Documented By: CHAS Buprenorphine/Naloxone (Buprenorphine/Naloxone 8/2 Mg Film) 1 film SUBLINGUAL BID [facility] Last Admin: 01/15/24 08:51 Dose: 1 film Documented By: PETER Divalproex Sodium (Divalproex Sodium 250 Mg Tablet.Dr) 250 mg PO TID [facility] Last Admin: 01/15/24 08:50 Dose: 250 mg Documented By: PETER Lidocaine (Lidocaine 4 % Patch Adh..Patch) 1 patch TRANSDERMA DAILY [facility]; Protocol Last Admin: 01/15/24 09:02 Dose: 1 patch Documented By: PETER Nicotine Polacrilex (Nicotine Polacrilex 2 Mg Gum) 4 mg BUCCAL Q2H PRN PRN Reason: nicotine addiction Last Admin: 01/15/24 02:57 Dose: 4 mg Documented By: JACKI Ondansetron HCl (Ondansetron Odt 4 Mg Tab.Rapdis) 4 mg TRANSLINGU Q6H PRN PRN Reason: Nausea and Vomiting Last Admin: 12/01/23 23:36 Dose: 4 mg Documented By: JOE Risperidone (Risperidone 1 Mg Tablet) 1 mg PO DAILY [facility] Last Admin: 01/15/24 08:50 Dose: 1 mg Documented By: PETER Risperidone (Risperidone 2 Mg Tablet) 2 mg PO BEDTIME [facility] Last Admin: 01/14/24 20:30 Dose: 2 mg Documented By: JACIK Labs 01/03/24 05:58 01/03/24 05:58 Assessment and Plan (1) Hyponatremia: Status: Acute (2) Leg swelling: Status: Acute Plan 48yo F with OUD on Suboxone, AUD with Korsakoff syndrome presented with confusion on 09/19/23, awaiting guardianship/LTC placement Left shoulder pain resolved. Korsakoff syndrome - continue quetiapine, valproate, risperidone as per Psychiatry consultation - lacks capacity to make informed medical decisions. -no behavioral issues OUD - Suboxone tobacco abuse - NRT VTE ppx - ambulatory In my clinical judgment, the patient requires continued inpatient hospitalization for the following reasons: placement Total time managing care of this patient today: 25 minutes. Quality Stroke Does the patient have a stroke diagnosis?: No VTE Prior VTE?: No VTE Risk Level:: Medical - low VTE Device Contraindication: Treatment Not Indicated VTE Drug Contraindication: Treatment Not Indicated
--- NOTE | 2024-01-15 15:14 | MHC.CM.PN ---
A message has been received from [employer], requesting information that has been sent 2x/x2days. New clinical information has been sent to facilities that have been following. [facility] is working with [facility].
[2024-01-15 15:17] VITALS: BP 108/74; PULSE 68; RESP 16; TEMP 36.2; O2SAT 97
[2024-01-15 19:49] VITALS: BP 121/65; PULSE 75; RESP 16; TEMP 36.1; O2SAT 97
[2024-01-15] MEDS: risperiDONE 2 MG TABLET PO (19:49)
[2024-01-15] MEDS: Acetaminophen 325 MG TABLET 650 MG PO (19:49)
[2024-01-16 03:58] VITALS: BP 93/52; PULSE 72; RESP 16; TEMP 36.3; O2SAT 96
[2024-01-16] MEDS: Nicotine Polacrilex 2 MG GUM 4 MG BUCCAL ×8 (04:02→22:29)
[2024-01-16 08:00] VITALS: BP 107/59; PULSE 70; RESP 18; TEMP 36.2; O2SAT 96
[2024-01-16] MEDS: Buprenorphine/Naloxone 8/2 mg FILM 1 FILM SUBLINGUAL ×2 (08:47→20:17)
[2024-01-16] MEDS: risperiDONE 1 MG TABLET PO (08:47)
[2024-01-16] MEDS: Lidocaine 4 % Patch ADH..PATCH 1 PATCH TRANSDERMA (08:47)
[2024-01-16] MEDS: Divalproex Sodium 250 MG TABLET.DR PO ×3 (08:47→20:17)
--- NOTE | 2024-01-16 12:59 | HO.PM.IMPN ---
Subjective Subjective Date of Service: 01/16/24 Interval History: Being followed for placement, patient offers no acute complaints. No acute events overnight. Review of Systems All other system reviewed and negative Physical Exam Vital Signs: Vital Signs: Last Vital Signs Temp 97.1 F 01/16/24 08:00 Pulse 70 01/16/24 08:00 Resp 18 01/16/24 08:00 BP 107/59 L 01/16/24 08:00 Pulse Ox 96 01/16/24 08:00 O2 Del Method Room Air 01/16/24 08:00 O2 Flow Rate 3 10/05/23 16:00 BMI result Body Mass Index 22.7 Const: Other: General awake alert, in no acute distress. CVS regular rate rhythm, Respiratory lungs clear to auscultation, no respiratory distress, no wheeze, no rhonchi. Gastrointestinal abdomen soft, non tender, bowel sounds audible. Extremities lower extremity edema resolved Neuro speech clear, no focal weakness. Psych impaired insight. Objective Data Active Medications Acetaminophen (Acetaminophen 325 Mg Tablet) 650 mg PO Q6H PRN PRN Reason: Pain, Mild (Pain Scale 1-3) Last Admin: 01/15/24 19:49 Dose: 650 mg Documented By: MAICO Al Hydroxide/Mg Hydroxide (Magnesium Hydrox/Alum Hydrox 30 Ml Oral.Susp) 30 ml PO Q6H PRN PRN Reason: GI Upset Last Admin: 11/19/23 19:16 Dose: 30 ml Documented By: LAMIN Benzocaine (Throat Lozenge, Medicated Lozenge) 1 lozenge MUCOUS MEM Q2H PRN PRN Reason: Sore Throat Last Admin: 12/10/23 08:25 Dose: 1 lozenge Documented By: CHAS Buprenorphine/Naloxone (Buprenorphine/Naloxone 8/2 Mg Film) 1 film SUBLINGUAL BID [facility] Last Admin: 01/16/24 08:47 Dose: 1 film Documented By: SANTIAGO Divalproex Sodium (Divalproex Sodium 250 Mg Tablet.Dr) 250 mg PO TID [facility] Last Admin: 01/16/24 08:47 Dose: 250 mg Documented By: SANTIAGO Lidocaine (Lidocaine 4 % Patch Adh..Patch) 1 patch TRANSDERMA DAILY [facility]; Protocol Last Admin: 01/16/24 08:47 Dose: 1 patch Documented By: SANTIAGO Nicotine Polacrilex (Nicotine Polacrilex 2 Mg Gum) 4 mg BUCCAL Q2H PRN PRN Reason: nicotine addiction Last Admin: 01/16/24 11:14 Dose: 4 mg Documented By: SANTIAGO Ondansetron HCl (Ondansetron Odt 4 Mg Tab.Rapdis) 4 mg TRANSLINGU Q6H PRN PRN Reason: Nausea and Vomiting Last Admin: 12/01/23 23:36 Dose: 4 mg Documented By: JOE Risperidone (Risperidone 1 Mg Tablet) 1 mg PO DAILY [facility] Last Admin: 01/16/24 08:47 Dose: 1 mg Documented By: SANTIAGO Risperidone (Risperidone 2 Mg Tablet) 2 mg PO BEDTIME [facility] Last Admin: 01/15/24 19:49 Dose: 2 mg Documented By: MAICO Labs 01/03/24 05:58 01/03/24 05:58 Assessment and Plan (1) Hyponatremia: Status: Acute (2) Leg swelling: Status: Acute Plan 48yo F with OUD on Suboxone, AUD with Korsakoff syndrome presented with confusion on 09/19/23, awaiting guardianship/LTC placement Left shoulder pain resolved. Korsakoff syndrome - continue quetiapine, valproate, risperidone as per Psychiatry consultation - lacks capacity to make informed medical decisions. -no behavioral issues OUD - Suboxone tobacco abuse - NRT VTE ppx - ambulatory In my clinical judgment, the patient requires continued inpatient hospitalization for the following reasons: placement Total time managing care of this patient today: 25 minutes. Quality Stroke Does the patient have a stroke diagnosis?: No VTE Prior VTE?: No VTE Risk Level:: Medical - low VTE Device Contraindication: Treatment Not Indicated VTE Drug Contraindication: Treatment Not Indicated
[2024-01-16 15:14] VITALS: BP 113/73; PULSE 85; RESP 16; TEMP 36.4; O2SAT 95
[2024-01-16] MEDS: Acetaminophen 325 MG TABLET 650 MG PO (18:34)
[2024-01-16 19:56] VITALS: BP 109/58; PULSE 80; RESP 16; TEMP 36.7; O2SAT 97
[2024-01-16] MEDS: risperiDONE 2 MG TABLET PO (20:17)
[2024-01-17] MEDS: Acetaminophen 325 MG TABLET 650 MG PO ×3 (00:44→14:50)
[2024-01-17] MEDS: Nicotine Polacrilex 2 MG GUM 4 MG BUCCAL ×7 (00:45→23:07)
[2024-01-17 03:44] VITALS: BP 109/63; PULSE 66; RESP 16; TEMP 36.3; O2SAT 96
[2024-01-17] MEDS: risperiDONE 1 MG TABLET PO (07:09)
[2024-01-17] MEDS: Lidocaine 4 % Patch ADH..PATCH 1 PATCH TRANSDERMA (07:09)
[2024-01-17] MEDS: Divalproex Sodium 250 MG TABLET.DR PO ×3 (07:10→20:48)
[2024-01-17] MEDS: Buprenorphine/Naloxone 8/2 mg FILM 1 FILM SUBLINGUAL ×2 (07:10→20:48)
[2024-01-17 07:30] VITALS: BP 97/58; PULSE 71; RESP 16; TEMP 36; O2SAT 97
--- NOTE | 2024-01-17 11:54 | P.PNIM_ITS ---
Subjective Subjective Date of Service: 01/17/24 Interval History: Being followed for placement No acute complaints, tolerating diet with no nausea, no vomiting, no abdominal pain, no acute events overnight. Review of Systems All other system reviewed and negative. Physical Exam 2 Vital Signs: Vital Signs: Last Vital Signs Temp 96.8 F 01/17/24 07:30 Pulse 71 01/17/24 07:30 Resp 16 01/17/24 07:30 BP 97/58 L 01/17/24 07:30 Pulse Ox 97 01/17/24 07:30 O2 Del Method Room Air 01/17/24 07:30 O2 Flow Rate 3 10/05/23 16:00 BMI result Body Mass Index 22.7 Const: Other: General awake alert, in no acute distress. CVS regular rate rhythm, Respiratory lungs clear to auscultation, no respiratory distress, no wheeze, no rhonchi. Gastrointestinal abdomen soft, non tender, bowel sounds audible. Extremities lower extremity edema resolved Neuro speech clear, no focal weakness. Psych impaired insight. Objective Data Active Medications Acetaminophen (Acetaminophen 325 Mg Tablet) 650 mg PO Q6H PRN PRN Reason: Pain, Mild (Pain Scale 1-3) Last Admin: 01/17/24 07:09 Dose: 650 mg Documented By: CHRISTOFER Al Hydroxide/Mg Hydroxide (Magnesium Hydrox/Alum Hydrox 30 Ml Oral.Susp) 30 ml PO Q6H PRN PRN Reason: GI Upset Last Admin: 11/19/23 19:16 Dose: 30 ml Documented By: LAMIN Benzocaine (Throat Lozenge, Medicated Lozenge) 1 lozenge MUCOUS MEM Q2H PRN PRN Reason: Sore Throat Last Admin: 12/10/23 08:25 Dose: 1 lozenge Documented By: CHAS Buprenorphine/Naloxone (Buprenorphine/Naloxone 8/2 Mg Film) 1 film SUBLINGUAL BID [facility] Last Admin: 01/17/24 07:10 Dose: 1 film Documented By: CHRISTOFER Divalproex Sodium (Divalproex Sodium 250 Mg Tablet.Dr) 250 mg PO TID [facility] Last Admin: 01/17/24 07:10 Dose: 250 mg Documented By: CHRISTOFER Lidocaine (Lidocaine 4 % Patch Adh..Patch) 1 patch TRANSDERMA DAILY [facility]; Protocol Last Admin: 01/17/24 07:09 Dose: 1 patch Documented By: CHRISTOFER Nicotine Polacrilex (Nicotine Polacrilex 2 Mg Gum) 4 mg BUCCAL Q2H PRN PRN Reason: nicotine addiction Last Admin: 01/17/24 07:10 Dose: 4 mg Documented By: CHRISTOFER Ondansetron HCl (Ondansetron Odt 4 Mg Tab.Rapdis) 4 mg TRANSLINGU Q6H PRN PRN Reason: Nausea and Vomiting Last Admin: 12/01/23 23:36 Dose: 4 mg Documented By: JOE Risperidone (Risperidone 1 Mg Tablet) 1 mg PO DAILY [facility] Last Admin: 01/17/24 07:09 Dose: 1 mg Documented By: CHRISTOFER Risperidone (Risperidone 2 Mg Tablet) 2 mg PO BEDTIME [facility] Last Admin: 01/16/24 20:17 Dose: 2 mg Documented By: ALFREDADRKYLEIGHD Labs 01/03/24 05:58 01/03/24 05:58 Assessment and Plan (1) Hyponatremia: Status: Acute (2) Leg swelling: Status: Acute Plan 48yo F with OUD on Suboxone, AUD with Korsakoff syndrome presented with confusion on 09/19/23, awaiting guardianship/LTC placement No acute events . Left shoulder pain resolved. Korsakoff syndrome - continue quetiapine, valproate, risperidone as per Psychiatry consultation - lacks capacity to make informed medical decisions. -no behavioral issues OUD - Suboxone tobacco abuse - NRT VTE ppx - ambulatory In my clinical judgment, the patient requires continued inpatient hospitalization for the following reasons: placement Total time managing care of this patient today: 25 minutes. Quality Stroke Does the patient have a stroke diagnosis?: No VTE Prior VTE?: No VTE Risk Level:: Medical - low VTE Device Contraindication: Treatment Not Indicated VTE Drug Contraindication: Treatment Not Indicated
[2024-01-17 15:56] VITALS: BP 110/59; PULSE 67; RESP 16; TEMP 36.2; O2SAT 97
[2024-01-17 20:00] VITALS: BP 90/52; PULSE 72; RESP 20; TEMP 36.8; O2SAT 95
[2024-01-17] MEDS: risperiDONE 2 MG TABLET PO (20:48)
[2024-01-17 20:49] VITALS: BP 99/58; PULSE 71
[2024-01-18 03:43] VITALS: BP 98/55; PULSE 68; RESP 20; TEMP 36.2; O2SAT 96
[2024-01-18 07:11] VITALS: BP 100/58; PULSE 68; RESP 16; TEMP 36.6; O2SAT 96
[2024-01-18] MEDS: risperiDONE 1 MG TABLET PO (08:40)
[2024-01-18] MEDS: Divalproex Sodium 250 MG TABLET.DR PO ×3 (08:40→21:24)
[2024-01-18] MEDS: Lidocaine 4 % Patch ADH..PATCH 1 PATCH TRANSDERMA (08:41)
[2024-01-18] MEDS: Buprenorphine/Naloxone 8/2 mg FILM 1 FILM SUBLINGUAL ×2 (08:41→21:24)
[2024-01-18] MEDS: Nicotine Polacrilex 2 MG GUM 4 MG BUCCAL ×4 (08:41→22:05)
--- NOTE | 2024-01-18 11:14 | HO.PM.IMPN ---
Subjective Subjective Date of Service: 01/18/24 Interval History: no new events Review of Systems Review of Systems: Yes all other systems are reviewed and are negative Physical Exam Vital Signs: Vital Signs: Last Vital Signs Temp 98 F 01/18/24 07:11 Pulse 68 01/18/24 07:11 Resp 16 01/18/24 07:11 BP 100/58 L 01/18/24 07:11 Pulse Ox 96 01/18/24 07:11 O2 Del Method Room Air 01/18/24 07:11 O2 Flow Rate 3 10/05/23 16:00 BMI result Body Mass Index 22.7 Gen: in no acute distress Lungs: normal efforts Neuro: alert, no weakness Psych: impaired insight Objective Data Active Medications Acetaminophen (Acetaminophen 325 Mg Tablet) 650 mg PO Q6H PRN PRN Reason: Pain, Mild (Pain Scale 1-3) Last Admin: 01/17/24 14:50 Dose: 650 mg Documented By: COTHECTOR Al Hydroxide/Mg Hydroxide (Magnesium Hydrox/Alum Hydrox 30 Ml Oral.Susp) 30 ml PO Q6H PRN PRN Reason: GI Upset Last Admin: 11/19/23 19:16 Dose: 30 ml Documented By: LAMIN Benzocaine (Throat Lozenge, Medicated Lozenge) 1 lozenge MUCOUS MEM Q2H PRN PRN Reason: Sore Throat Last Admin: 12/10/23 08:25 Dose: 1 lozenge Documented By: CHAS Buprenorphine/Naloxone (Buprenorphine/Naloxone 8/2 Mg Film) 1 film SUBLINGUAL BID [facility] Last Admin: 01/18/24 08:41 Dose: 1 film Documented By: ELOISE Divalproex Sodium (Divalproex Sodium 250 Mg Tablet.Dr) 250 mg PO TID [facility] Last Admin: 01/18/24 08:40 Dose: 250 mg Documented By: ELOISE Lidocaine (Lidocaine 4 % Patch Adh..Patch) 1 patch TRANSDERMA DAILY [facility]; Protocol Last Admin: 01/18/24 08:41 Dose: 1 patch Documented By: ELOISE Nicotine Polacrilex (Nicotine Polacrilex 2 Mg Gum) 4 mg BUCCAL Q2H PRN PRN Reason: nicotine addiction Last Admin: 01/18/24 08:41 Dose: 4 mg Documented By: ELOISE Ondansetron HCl (Ondansetron Odt 4 Mg Tab.Rapdis) 4 mg TRANSLINGU Q6H PRN PRN Reason: Nausea and Vomiting Last Admin: 12/01/23 23:36 Dose: 4 mg Documented By: JOE Risperidone (Risperidone 1 Mg Tablet) 1 mg PO DAILY [facility] Last Admin: 01/18/24 08:40 Dose: 1 mg Documented By: ELOISE Risperidone (Risperidone 2 Mg Tablet) 2 mg PO BEDTIME [facility] Last Admin: 01/17/24 20:48 Dose: 2 mg Documented By: REE Labs 01/03/24 05:58 01/03/24 05:58 Assessment and Plan (1) Hyponatremia: Status: Acute (2) Leg swelling: Status: Acute Plan [id number] 48yo F with OUD on Suboxone, AUD with Korsakoff syndrome presented with confusion on 09/19/23, awaiting guardianship/LTC placement Korsakoff syndrome - continue quetiapine, valproate, risperidone as per Psychiatry consultation - lacks capacity to make informed medical decisions. - no behavioral issues OUD - Suboxone tobacco abuse - NRT VTE ppx - ambulatory In my clinical judgment, the patient requires continued inpatient hospitalization for the following reasons: placement Total time managing care of this patient today: 25 minutes. Quality Stroke Does the patient have a stroke diagnosis?: No VTE Prior VTE?: No VTE Risk Level:: Medical - low VTE Device Contraindication: Treatment Not Indicated VTE Drug Contraindication: Treatment Not Indicated
[2024-01-18 15:34] VITALS: BP 99/56; PULSE 75; RESP 13; TEMP 36.2; O2SAT 97
[2024-01-18 20:00] VITALS: BP 100/62; PULSE 77; RESP 14; TEMP 36.1; O2SAT 96
[2024-01-18] MEDS: risperiDONE 2 MG TABLET PO (21:24)
[2024-01-18] MEDS: Acetaminophen 325 MG TABLET 650 MG PO (23:27)
[2024-01-19] MEDS: Nicotine Polacrilex 2 MG GUM 4 MG BUCCAL ×5 (00:16→20:12)
[2024-01-19 03:35] VITALS: BP 102/68; PULSE 78; RESP 18; TEMP 36.3; O2SAT 96
[2024-01-19 08:11] VITALS: PULSE 71; RESP 12; TEMP 36.5; O2SAT 94
[2024-01-19] MEDS: risperiDONE 1 MG TABLET PO (09:05)
[2024-01-19] MEDS: Buprenorphine/Naloxone 8/2 mg FILM 1 FILM SUBLINGUAL ×2 (09:05→20:41)
[2024-01-19] MEDS: Divalproex Sodium 250 MG TABLET.DR PO ×3 (09:05→20:41)
[2024-01-19] MEDS: Lidocaine 4 % Patch ADH..PATCH 1 PATCH TRANSDERMA (09:06)
--- NOTE | 2024-01-19 10:07 | HO.PM.IMPN ---
Subjective Subjective Date of Service: 01/19/24 Interval History: no new events Review of Systems Review of Systems: Yes all other systems are reviewed and are negative Physical Exam Vital Signs: Vital Signs: Last Vital Signs Temp 97.7 F 01/19/24 08:11 Pulse 71 01/19/24 08:11 Resp 12 01/19/24 08:11 BP 102/68 01/19/24 03:35 Pulse Ox 94 01/19/24 08:11 O2 Del Method Room Air 01/19/24 08:11 O2 Flow Rate 3 10/05/23 16:00 BMI result Body Mass Index 22.7 Gen: in no acute distress Lungs: normal efforts Neuro: alert, no weakness Psych: impaired insight Objective Data Active Medications Acetaminophen (Acetaminophen 325 Mg Tablet) 650 mg PO Q6H PRN PRN Reason: Pain, Mild (Pain Scale 1-3) Last Admin: 01/18/24 23:27 Dose: 650 mg Documented By: TANK Al Hydroxide/Mg Hydroxide (Magnesium Hydrox/Alum Hydrox 30 Ml Oral.Susp) 30 ml PO Q6H PRN PRN Reason: GI Upset Last Admin: 11/19/23 19:16 Dose: 30 ml Documented By: LARISBaldo Benzocaine (Throat Lozenge, Medicated Lozenge) 1 lozenge MUCOUS MEM Q2H PRN PRN Reason: Sore Throat Last Admin: 12/10/23 08:25 Dose: 1 lozenge Documented By: CHAS Buprenorphine/Naloxone (Buprenorphine/Naloxone 8/2 Mg Film) 1 film SUBLINGUAL BID ON LICENSE OF [facility] Last Admin: 01/19/24 09:05 Dose: 1 film Documented By: KIERA Divalproex Sodium (Divalproex Sodium 250 Mg Tablet.Dr) 250 mg PO TID ON LICENSE OF [facility] Last Admin: 01/19/24 09:05 Dose: 250 mg Documented By: KIERA Lidocaine (Lidocaine 4 % Patch Adh..Patch) 1 patch TRANSDERMA DAILY ON [facility] OF [facility]; Protocol Last Admin: 01/19/24 09:06 Dose: 1 patch Documented By: KIERA Nicotine Polacrilex (Nicotine Polacrilex 2 Mg Gum) 4 mg BUCCAL Q2H PRN PRN Reason: nicotine addiction Last Admin: 01/19/24 09:06 Dose: 4 mg Documented By: HO.DOBROB Ondansetron HCl (Ondansetron Odt 4 Mg Tab.Rapdis) 4 mg TRANSLINGU Q6H PRN PRN Reason: Nausea and Vomiting Last Admin: 12/01/23 23:36 Dose: 4 mg Documented By: JOE Risperidone (Risperidone 1 Mg Tablet) 1 mg PO DAILY [facility] Last Admin: 01/19/24 09:05 Dose: 1 mg Documented By: BROB Risperidone (Risperidone 2 Mg Tablet) 2 mg PO BEDTIME ON LICENSE [facility] Last Admin: 01/18/24 21:24 Dose: 2 mg Documented By: LYSZ Labs 01/03/24 05:58 01/03/24 05:58 Assessment and Plan (1) Hyponatremia: Status: Acute (2) Leg swelling: Status: Acute Plan [id number] 48yo F with OUD on Suboxone, AUD with Korsakoff syndrome presented with confusion on 09/19/23, awaiting guardianship/LTC placement Korsakoff syndrome - continue quetiapine, valproate, risperidone as per Psychiatry consultation - lacks capacity to make informed medical decisions. - no behavioral issues OUD - Suboxone tobacco abuse - NRT VTE ppx - ambulatory In my clinical judgment, the patient requires continued inpatient hospitalization for the following reasons: long-term care placement Total time managing care of this patient today: 25 minutes. Quality Stroke Does the patient have a stroke diagnosis?: No VTE Prior VTE?: No VTE Risk Level:: Medical - low VTE Device Contraindication: Treatment Not Indicated VTE Drug Contraindication: Treatment Not Indicated
[2024-01-19 15:31] VITALS: BP 137/64; PULSE 76; TEMP 36.2; O2SAT 98
--- NOTE | 2024-01-19 19:22 | PC.NURSE ---
Patient calm and cooperative, walks in her room, will step out to ask staff for nicotine gum, coffee or shirley vishnu.
[2024-01-19 19:59] VITALS: BP 128/83; PULSE 83; RESP 13; TEMP 36.4; O2SAT 97
[2024-01-19] MEDS: Acetaminophen 325 MG TABLET 650 MG PO (20:41)
[2024-01-19] MEDS: risperiDONE 2 MG TABLET PO (20:41)
[2024-01-20] MEDS: Nicotine Polacrilex 2 MG GUM 4 MG BUCCAL ×9 (00:07→22:15)
[2024-01-20] MEDS: Acetaminophen 325 MG TABLET 650 MG PO ×3 (02:23→20:32)
--- NOTE | 2024-01-20 03:36 | PC.NURSE ---
[id number]; Patient calm and cooperative, walking in the room mainly. Patient comes out briefly looking for nicotine gum or a snack, easily redirectable.
[2024-01-20 04:00] VITALS: BP 136/78; PULSE 73; RESP 16; TEMP 36.1; O2SAT 98
[2024-01-20 08:00] VITALS: BP 96/63; PULSE 65; RESP 16; TEMP 36.1; O2SAT 98
[2024-01-20] MEDS: Lidocaine 4 % Patch ADH..PATCH 1 PATCH TRANSDERMA (08:53)
[2024-01-20] MEDS: Divalproex Sodium 250 MG TABLET.DR PO ×3 (08:54→20:32)
[2024-01-20] MEDS: Buprenorphine/Naloxone 8/2 mg FILM 1 FILM SUBLINGUAL ×2 (08:54→20:32)
[2024-01-20] MEDS: risperiDONE 1 MG TABLET PO (08:54)
--- NOTE | 2024-01-20 11:49 | HO.PM.IMPN ---
Subjective Subjective Date of Service: 01/20/24 Interval History: no new events Review of Systems Review of Systems: Yes all other systems are reviewed and are negative Physical Exam Vital Signs: Vital Signs: Last Vital Signs Temp 96.9 F 01/20/24 08:00 Pulse 65 01/20/24 08:00 Resp 16 01/20/24 08:00 BP 96/63 01/20/24 08:00 Pulse Ox 98 01/20/24 08:00 O2 Del Method Room Air 01/20/24 08:00 O2 Flow Rate 3 10/05/23 16:00 BMI result Body Mass Index 22.7 Gen: in no acute distress Lungs: normal efforts Neuro: alert, no weakness Psych: impaired insight Objective Data Active Medications Acetaminophen (Acetaminophen 325 Mg Tablet) 650 mg PO Q6H PRN PRN Reason: Pain, Mild (Pain Scale 1-3) Last Admin: 01/20/24 08:54 Dose: 650 mg Documented By: OH Al Hydroxide/Mg Hydroxide (Magnesium Hydrox/Alum Hydrox 30 Ml Oral.Susp) 30 ml PO Q6H PRN PRN Reason: GI Upset Last Admin: 11/19/23 19:16 Dose: 30 ml Documented By: LARISM Benzocaine (Throat Lozenge, Medicated Lozenge) 1 lozenge MUCOUS MEM Q2H PRN PRN Reason: Sore Throat Last Admin: 12/10/23 08:25 Dose: 1 lozenge Documented By: CHAS Buprenorphine/Naloxone (Buprenorphine/Naloxone 8/2 Mg Film) 1 film SUBLINGUAL BID [facility] Last Admin: 01/20/24 08:54 Dose: 1 film Documented By: OH Divalproex Sodium (Divalproex Sodium 250 Mg Tablet.Dr) 250 mg PO TID [facility] Last Admin: 01/20/24 08:54 Dose: 250 mg Documented By: OH Lidocaine (Lidocaine 4 % Patch Adh..Patch) 1 patch TRANSDERMA DAILY [facility]; Protocol Last Admin: 01/20/24 08:53 Dose: 1 patch Documented By: OH Nicotine Polacrilex (Nicotine Polacrilex 2 Mg Gum) 4 mg BUCCAL Q2H PRN PRN Reason: nicotine addiction Last Admin: 01/20/24 08:54 Dose: 4 mg Documented By: OH Ondansetron HCl (Ondansetron Odt 4 Mg Tab.Rapdis) 4 mg TRANSLINGU Q6H PRN PRN Reason: Nausea and Vomiting Last Admin: 12/01/23 23:36 Dose: 4 mg Documented By: JOE Risperidone (Risperidone 1 Mg Tablet) 1 mg PO DAILY [facility] Last Admin: 01/20/24 08:54 Dose: 1 mg Documented By: OH Risperidone (Risperidone 2 Mg Tablet) 2 mg PO BEDTIME [facility] Last Admin: 01/19/24 20:41 Dose: 2 mg Documented By: OLIVIERASY Labs 01/03/24 05:58 01/03/24 05:58 Assessment and Plan (1) Hyponatremia: Status: Acute (2) Leg swelling: Status: Acute Plan [id number] 48yo F with OUD on Suboxone, AUD with Korsakoff syndrome presented with confusion on 09/19/23, awaiting guardianship/LTC placement Korsakoff syndrome - continue quetiapine, valproate, risperidone as per Psychiatry consultation - lacks capacity to make informed medical decisions. - no behavioral issues OUD - Suboxone tobacco abuse - NRT VTE ppx - ambulatory In my clinical judgment, the patient requires continued inpatient hospitalization for the following reasons: long-term care placement Total time managing care of this patient today: 25 minutes. Quality Stroke Does the patient have a stroke diagnosis?: No VTE Prior VTE?: No VTE Risk Level:: Medical - low VTE Device Contraindication: Treatment Not Indicated VTE Drug Contraindication: Treatment Not Indicated
[2024-01-20 15:52] VITALS: BP 119/68; PULSE 76; RESP 18; TEMP 36.1; O2SAT 98
[2024-01-20 19:36] VITALS: BP 100/58; PULSE 74; RESP 18; TEMP 36.1; O2SAT 97
[2024-01-20] MEDS: risperiDONE 2 MG TABLET PO (20:32)
[2024-01-21] MEDS: Nicotine Polacrilex 2 MG GUM 4 MG BUCCAL ×8 (00:19→22:12)
[2024-01-21] MEDS: Acetaminophen 325 MG TABLET 650 MG PO (03:13)
[2024-01-21 03:56] VITALS: BP 102/60; PULSE 66; RESP 20; TEMP 36; O2SAT 94
[2024-01-21 07:15] VITALS: BP 110/58; PULSE 64; RESP 16; TEMP 36.6; O2SAT 95
[2024-01-21] MEDS: risperiDONE 1 MG TABLET PO (07:37)
[2024-01-21] MEDS: Lidocaine 4 % Patch ADH..PATCH 1 PATCH TRANSDERMA (07:37)
[2024-01-21] MEDS: Divalproex Sodium 250 MG TABLET.DR PO ×3 (07:37→20:33)
[2024-01-21] MEDS: Buprenorphine/Naloxone 8/2 mg FILM 1 FILM SUBLINGUAL ×2 (08:47→20:33)
--- NOTE | 2024-01-21 09:41 | P.PNIM_ITS ---
Subjective Subjective Date of Service: 01/21/24 Interval History: no new complaints Review of Systems Review of Systems: Yes all other systems are reviewed and are negative Physical Exam 2 Vital Signs: Vital Signs: Last Vital Signs Temp 98 F 01/21/24 07:15 Pulse 64 01/21/24 07:15 Resp 16 01/21/24 07:15 BP 110/58 L 01/21/24 07:15 Pulse Ox 95 01/21/24 07:15 O2 Del Method Room Air 01/21/24 07:15 O2 Flow Rate 3 10/05/23 16:00 BMI result Body Mass Index 22.7 Gen: in no acute distress Lungs: normal efforts Neuro: alert, no weakness Psych: impaired insight Objective Data Active Medications Acetaminophen (Acetaminophen 325 Mg Tablet) 650 mg PO Q6H PRN PRN Reason: Pain, Mild (Pain Scale 1-3) Last Admin: 01/21/24 03:13 Dose: 650 mg Documented By: LUCIO Al Hydroxide/Mg Hydroxide (Magnesium Hydrox/Alum Hydrox 30 Ml Oral.Susp) 30 ml PO Q6H PRN PRN Reason: GI Upset Last Admin: 11/19/23 19:16 Dose: 30 ml Documented By: LAMIN Benzocaine (Throat Lozenge, Medicated Lozenge) 1 lozenge MUCOUS MEM Q2H PRN PRN Reason: Sore Throat Last Admin: 12/10/23 08:25 Dose: 1 lozenge Documented By: CHAS Buprenorphine/Naloxone (Buprenorphine/Naloxone 8/2 Mg Film) 1 film SUBLINGUAL BID [facility] Last Admin: 01/21/24 08:47 Dose: 1 film Documented By: OH Divalproex Sodium (Divalproex Sodium 250 Mg Tablet.Dr) 250 mg PO TID [facility] Last Admin: 01/21/24 07:37 Dose: 250 mg Documented By: OH Lidocaine (Lidocaine 4 % Patch Adh..Patch) 1 patch TRANSDERMA DAILY [facility]; Protocol Last Admin: 01/21/24 07:37 Dose: 1 patch Documented By: OH Nicotine Polacrilex (Nicotine Polacrilex 2 Mg Gum) 4 mg BUCCAL Q2H PRN PRN Reason: nicotine addiction Last Admin: 01/21/24 07:37 Dose: 4 mg Documented By: OH Ondansetron HCl (Ondansetron Odt 4 Mg Tab.Rapdis) 4 mg TRANSLINGU Q6H PRN PRN Reason: Nausea and Vomiting Last Admin: 12/01/23 23:36 Dose: 4 mg Documented By: JOE Risperidone (Risperidone 1 Mg Tablet) 1 mg PO DAILY [facility] Last Admin: 01/21/24 07:37 Dose: 1 mg Documented By: OH Risperidone (Risperidone 2 Mg Tablet) 2 mg PO BEDTIME [facility] Last Admin: 01/20/24 20:32 Dose: 2 mg Documented By: ZACHQC Labs 01/03/24 05:58 01/03/24 05:58 Assessment and Plan (1) Hyponatremia: Status: Acute (2) Leg swelling: Status: Acute Plan d110 48yo F with OUD on Suboxone, AUD with Korsakoff syndrome presented with confusion on 09/19/23, awaiting guardianship/LTC placement Korsakoff syndrome - continue quetiapine, valproate, risperidone as per Psychiatry consultation - lacks capacity to make informed medical decisions. - no behavioral issues OUD - Suboxone tobacco abuse - NRT VTE ppx - ambulatory In my clinical judgment, the patient requires continued inpatient hospitalization for the following reasons: long-term care placement Total time managing care of this patient today: 25 minutes. Quality Stroke Does the patient have a stroke diagnosis?: No VTE Prior VTE?: No VTE Risk Level:: Medical - low VTE Device Contraindication: Treatment Not Indicated VTE Drug Contraindication: Treatment Not Indicated
[2024-01-21 15:16] VITALS: BP 94/68; PULSE 78; RESP 18; TEMP 36.1; O2SAT 96
--- NOTE | 2024-01-21 16:28 | PC.NURSE ---
Pt calm and cooperative in room, occasionally steps out of room asking for prescribed nicotene gun or tylenol, easily redirectable, ambulates in room independently.
[2024-01-21 19:38] VITALS: BP 101/61; PULSE 79; RESP 18; TEMP 36.4; O2SAT 98
[2024-01-21] MEDS: risperiDONE 2 MG TABLET PO (20:33)
[2024-01-22] MEDS: Nicotine Polacrilex 2 MG GUM 4 MG BUCCAL ×4 (00:12→22:17)
[2024-01-22] MEDS: Acetaminophen 325 MG TABLET 650 MG PO ×3 (00:13→19:16)
[2024-01-22 03:23] VITALS: BP 105/56; PULSE 70; RESP 18; TEMP 36.8; O2SAT 99
[2024-01-22 07:30] VITALS: BP 116/59; PULSE 65; RESP 17; TEMP 36; O2SAT 96
[2024-01-22] MEDS: Buprenorphine/Naloxone 8/2 mg FILM 1 FILM SUBLINGUAL ×2 (09:09→22:13)
[2024-01-22] MEDS: Divalproex Sodium 250 MG TABLET.DR PO ×3 (09:09→22:13)
[2024-01-22] MEDS: risperiDONE 1 MG TABLET PO (09:09)
[2024-01-22] MEDS: Lidocaine 4 % Patch ADH..PATCH 1 PATCH TRANSDERMA (09:09)
--- NOTE | 2024-01-22 10:49 | HO.PM.IMPN ---
Subjective Subjective Date of Service: 01/22/24 Interval History: no new events or complaints Review of Systems Review of Systems: Yes all other systems are reviewed and are negative Physical Exam Vital Signs: Vital Signs: Last Vital Signs Temp 96.8 F 01/22/24 07:30 Pulse 65 01/22/24 07:30 Resp 17 01/22/24 07:30 BP 116/59 L 01/22/24 07:30 Pulse Ox 96 01/22/24 07:30 O2 Del Method Room Air 01/22/24 07:30 O2 Flow Rate 3 10/05/23 16:00 BMI result Body Mass Index 22.7 Gen: in no acute distress Lungs: normal efforts Neuro: alert, no weakness Psych: impaired insight Objective Data Active Medications Acetaminophen (Acetaminophen 325 Mg Tablet) 650 mg PO Q6H PRN PRN Reason: Pain, Mild (Pain Scale 1-3) Last Admin: 01/22/24 09:10 Dose: 650 mg Documented By: MARIBEL Al Hydroxide/Mg Hydroxide (Magnesium Hydrox/Alum Hydrox 30 Ml Oral.Susp) 30 ml PO Q6H PRN PRN Reason: GI Upset Last Admin: 11/19/23 19:16 Dose: 30 ml Documented By: LAMIN Buprenorphine/Naloxone (Buprenorphine/Naloxone 8/2 Mg Film) 1 film SUBLINGUAL BID [facility] Last Admin: 01/22/24 09:09 Dose: 1 film Documented By: MARIBEL Divalproex Sodium (Divalproex Sodium 250 Mg Tablet.Dr) 250 mg PO TID [facility] Last Admin: 01/22/24 09:09 Dose: 250 mg Documented By: MARIBEL Lidocaine (Lidocaine 4 % Patch Adh..Patch) 1 patch TRANSDERMA DAILY [facility]; Protocol Last Admin: 01/22/24 09:09 Dose: 1 patch Documented By: MARIBEL Nicotine Polacrilex (Nicotine Polacrilex 2 Mg Gum) 4 mg BUCCAL Q2H PRN PRN Reason: nicotine addiction Last Admin: 01/22/24 00:12 Dose: 4 mg Documented By: JOE Ondansetron HCl (Ondansetron Odt 4 Mg Tab.Rapdis) 4 mg TRANSLINGU Q6H PRN PRN Reason: Nausea and Vomiting Last Admin: 12/01/23 23:36 Dose: 4 mg Documented By: JOE Risperidone (Risperidone 1 Mg Tablet) 1 mg PO DAILY [facility] Last Admin: 01/22/24 09:09 Dose: 1 mg Documented By: MARIBEL Risperidone (Risperidone 2 Mg Tablet) 2 mg PO BEDTIME [facility] Last Admin: 01/21/24 20:33 Dose: 2 mg Documented By: JOE Labs 01/03/24 05:58 01/03/24 05:58 Assessment and Plan (1) Hyponatremia: Status: Acute (2) Leg swelling: Status: Acute Plan d111 48yo F with OUD on Suboxone, AUD with Korsakoff syndrome presented with confusion on 09/19/23, awaiting guardianship/LTC placement Korsakoff syndrome - continue quetiapine, valproate, risperidone as per Psychiatry consultation - lacks capacity to make informed medical decisions - no behavioral issues OUD - Suboxone tobacco abuse - NRT VTE ppx - ambulatory In my clinical judgment, the patient requires continued inpatient hospitalization for the following reasons: long-term care placement Total time managing care of this patient today: 25 minutes. Quality Stroke Does the patient have a stroke diagnosis?: No VTE Prior VTE?: No VTE Risk Level:: Medical - low VTE Device Contraindication: Treatment Not Indicated VTE Drug Contraindication: Treatment Not Indicated
--- NOTE | 2024-01-22 12:07 | MHC.CM.PN ---
EMR REVIEWED, ACCEPTING FACILITY [employer] MIMI IS REQUESTING PT CHANGE HER MEDICAID MANAGED PLAN, DIRECTOR HETAL WORKING ON THIS TODAY, CM WILL CONT TO FOLLOW DC NEEDS.
--- NOTE | 2024-01-22 13:27 | MHC.CM.PN ---
This pattern chart writer placed email to Ruby @ [email or web address] to help facilitate insurance issue w/ [employer]. Awaiting return response.
[2024-01-22 15:38] VITALS: BP 111/58; PULSE 80; RESP 16; TEMP 35.9; O2SAT 97
[2024-01-22 20:00] VITALS: BP 97/54; PULSE 64; RESP 16; TEMP 36.4; O2SAT 96
[2024-01-22] MEDS: risperiDONE 2 MG TABLET PO (22:13)
[2024-01-23] MEDS: Nicotine Polacrilex 2 MG GUM 4 MG BUCCAL ×8 (01:28→20:30)
[2024-01-23 03:17] VITALS: BP 103/56; PULSE 71; RESP 16; TEMP 36.6; O2SAT 94
[2024-01-23 08:00] VITALS: BP 98/56; PULSE 93; RESP 17; TEMP 36; O2SAT 96
[2024-01-23] MEDS: Buprenorphine/Naloxone 8/2 mg FILM 1 FILM SUBLINGUAL ×2 (09:38→20:31)
[2024-01-23] MEDS: risperiDONE 1 MG TABLET PO (09:39)
[2024-01-23] MEDS: Divalproex Sodium 250 MG TABLET.DR PO ×3 (09:39→20:30)
[2024-01-23] MEDS: Acetaminophen 325 MG TABLET 650 MG PO ×2 (09:39→14:43)
[2024-01-23] MEDS: Lidocaine 4 % Patch ADH..PATCH 1 PATCH TRANSDERMA (09:39)
--- NOTE | 2024-01-23 10:41 | P.PNIM_ITS ---
Subjective Subjective Date of Service: 01/23/24 Interval History: no new events or complaints Review of Systems All other system reviewed and negative. Review of Systems: Yes all other systems are reviewed and are negative Constitutional Constitutional: Denies chills, Denies fever(s) and Denies weight loss Cardiovascular Cardiovascular: Denies chest pain, Denies palpitations and Denies dyspnea Respiratory Respiratory: Denies cough, Denies hemoptysis and Denies dyspnea Gastrointestinal Gastrointestinal: Denies abdominal pain, Denies diarrhea and Denies nausea Musculoskeletal Musculoskeletal: Denies back pain Neurologic Neurologic: Denies focal weakness Endocrine Endocrine: Denies palpitations Physical Exam 2 Vital Signs: Vital Signs: Last Vital Signs Temp 96.8 F 01/23/24 08:00 Pulse 93 01/23/24 08:00 Resp 17 01/23/24 08:00 BP 98/56 L 01/23/24 08:00 Pulse Ox 96 01/23/24 08:00 O2 Del Method Room Air 01/23/24 08:00 O2 Flow Rate 3 10/05/23 16:00 BMI result Body Mass Index 22.7 Const: Other: General awake alert, in no acute distress. CVS regular rate rhythm, Respiratory lungs clear to auscultation, no respiratory distress, no wheeze, no rhonchi. Gastrointestinal abdomen soft, non tender, bowel sounds audible. Extremities lower extremity edema resolved Neuro speech clear, no focal weakness. Psych impaired insight. General: cooperative, comfortable, no acute distress, alert and awake N utritional Appearance: average body habitus Resp: Other: Clear to auscultation bilaterally no rales rhonchi or wheezes Effort & Inspection: normal respiratory effort, able to speak in complete sentences, no respiratory distress and no use of accessory muscles Cardio: Other: No S4; positive S1-S2; no S3 murmurs rubs or gallops Rate: regular rate GI: Other: Soft nontender nondistended normoactive bowel sounds Inspection: No distended Palpation (GI): Soft to palpation Neuro: Other: ambulating in room, grossly nonfocal, moving all extremities General: moves all extremities Extrem: Other: No edema bilaterally General: Yes no pedal edema Objective Data Active Medications Acetaminophen (Acetaminophen 325 Mg Tablet) 650 mg PO Q6H PRN PRN Reason: Pain, Mild (Pain Scale 1-3) Last Admin: 01/23/24 09:39 Dose: 650 mg Documented By: MAR Al Hydroxide/Mg Hydroxide (Magnesium Hydrox/Alum Hydrox 30 Ml Oral.Susp) 30 ml PO Q6H PRN PRN Reason: GI Upset Last Admin: 11/19/23 19:16 Dose: 30 ml Documented By: ODRISBaldo Buprenorphine/Naloxone (Buprenorphine/Naloxone 8/2 Mg Film) 1 film SUBLINGUAL BID [facility] Last Admin: 01/23/24 09:38 Dose: 1 film Documented By: MAR Divalproex Sodium (Divalproex Sodium 250 Mg Tablet.Dr) 250 mg PO TID [facility] Last Admin: 01/23/24 09:39 Dose: 250 mg Documented By: MAR Lidocaine (Lidocaine 4 % Patch Adh..Patch) 1 patch TRANSDERMA DAILY [facility]; Protocol Last Admin: 01/23/24 09:39 Dose: 1 patch Documented By: MAR Nicotine Polacrilex (Nicotine Polacrilex 2 Mg Gum) 4 mg BUCCAL Q2H PRN PRN Reason: nicotine addiction Last Admin: 01/23/24 09:38 Dose: 4 mg Documented By: MAR Ondansetron HCl (Ondansetron Odt 4 Mg Tab.Rapdis) 4 mg TRANSLINGU Q6H PRN PRN Reason: Nausea and Vomiting Last Admin: 12/01/23 23:36 Dose: 4 mg Documented By: JOE Risperidone (Risperidone 1 Mg Tablet) 1 mg PO DAILY [facility] Last Admin: 01/23/24 09:39 Dose: 1 mg Documented By: MAR Risperidone (Risperidone 2 Mg Tablet) 2 mg PO BEDTIME [facility] Last Admin: 01/22/24 22:13 Dose: 2 mg Documented By: LYSZ Labs 01/03/24 05:58 01/03/24 05:58 Assessment and Plan (1) Alcoholic Korsakoff syndrome: Status: Acute Plan [id number] 48yo F with OUD on Suboxone, AUD with Korsakoff syndrome presented with confusion on 09/19/23, awaiting guardianship/LTC placement Korsakoff syndrome - continue quetiapine, valproate, risperidone as per Psychiatry consultation - lacks capacity to make informed medical decisions - no behavioral issues OUD - Suboxone tobacco abuse - NRT VTE ppx - ambulatory In my clinical judgment, the patient requires continued inpatient hospitalization for the following reasons: long-term care placement Quality Stroke Does the patient have a stroke diagnosis?: No VTE Prior VTE?: No VTE Risk Level:: Medical - low VTE Device Contraindication: Treatment Not Indicated VTE Drug Contraindication: Treatment Not Indicated
--- NOTE | 2024-01-23 13:21 | MHC.CM.PN ---
CM RECEIVED MESSAGE TO CONTACT PT'S SISTER/GUARDIAN MIO, CM ATTEMPTED TO CONTACT MIO AT 1:05PM [phone], NO ANSWER AND DETAILED MESSAGE LEFT, CM AWAITING RESPONSE FROM ANDREY PIZANO LIAISON THEY WERE FOLLOWING UP W/MIO YESTERDAY REGARDING ACCESS TO SS INFO AND CM DIRECTOR AWAITING CALL BACK [facility]
[2024-01-23 15:01] VITALS: BP 138/65; PULSE 77; RESP 18; TEMP 36.2; O2SAT 99
[2024-01-23 19:56] VITALS: BP 95/53; PULSE 80; RESP 18; TEMP 36.3; O2SAT 94
[2024-01-23] MEDS: risperiDONE 2 MG TABLET PO (20:30)
[2024-01-24 03:57] VITALS: BP 105/60; PULSE 70; RESP 16; TEMP 36.6; O2SAT 97
[2024-01-24 08:00] VITALS: BP 105/66; PULSE 82; RESP 18; TEMP 36.4; O2SAT 96
--- NOTE | 2024-01-24 08:37 | P.PNIM_ITS ---
Subjective Subjective Date of Service: 01/24/24 Interval History: no new events or complaints. Review of Systems All other system reviewed and negative. Constitutional Constitutional: Denies chills, Denies fever(s) and Denies weight loss Cardiovascular Cardiovascular: Denies chest pain, Denies palpitations and Denies dyspnea Respiratory Respiratory: Denies cough, Denies hemoptysis and Denies dyspnea Gastrointestinal Gastrointestinal: Denies abdominal pain, Denies diarrhea and Denies nausea Musculoskeletal Musculoskeletal: Denies back pain Neurologic Neurologic: Denies focal weakness Endocrine Endocrine: Denies palpitations Physical Exam 2 Vital Signs: Vital Signs: Last Vital Signs Temp 97.6 F 01/24/24 08:00 Pulse 82 01/24/24 08:00 Resp 18 01/24/24 08:00 BP 105/66 01/24/24 08:00 Pulse Ox 96 01/24/24 08:00 O2 Del Method Room Air 01/24/24 08:00 O2 Flow Rate 3 10/05/23 16:00 BMI result Body Mass Index 22.7 Const: Other: General awake alert, in no acute distress. CVS regular rate rhythm, Respiratory lungs clear to auscultation, no respiratory distress, no wheeze, no rhonchi. Gastrointestinal abdomen soft, non tender, bowel sounds audible. Extremities lower extremity edema resolved Neuro speech clear, no focal weakness. Psych impaired insight. General: cooperative, comfortable, no acute distress, alert and awake N utritional Appearance: average body habitus Resp: Other: Clear to auscultation bilaterally no rales rhonchi or wheezes Effort & Inspection: normal respiratory effort, able to speak in complete sentences, no respiratory distress and no use of accessory muscles Cardio: Other: No S4; positive S1-S2; no S3 murmurs rubs or gallops Rate: regular rate GI: Other: Soft nontender nondistended normoactive bowel sounds Inspection: No distended Palpation (GI): Soft to palpation Neuro: Other: ambulating in room, grossly nonfocal, moving all extremities General: moves all extremities Extrem: Other: No edema bilaterally General: Yes no pedal edema Objective Data Active Medications Acetaminophen (Acetaminophen 325 Mg Tablet) 650 mg PO Q6H PRN PRN Reason: Pain, Mild (Pain Scale 1-3) Last Admin: 01/23/24 14:43 Dose: 650 mg Documented By: HO.COTEMA Al Hydroxide/Mg Hydroxide (Magnesium Hydrox/Alum Hydrox 30 Ml Oral.Susp) 30 ml PO Q6H PRN PRN Reason: GI Upset Last Admin: 11/19/23 19:16 Dose: 30 ml Documented By: LAMIN Buprenorphine/Naloxone (Buprenorphine/Naloxone 8/2 Mg Film) 1 film SUBLINGUAL BID [facility] Last Admin: 01/23/24 20:31 Dose: 1 film Documented By: BELLA Divalproex Sodium (Divalproex Sodium 250 Mg Tablet.) 250 mg PO TID [facility] Last Admin: 01/23/24 20:30 Dose: 250 mg Documented By: BELLA Lidocaine (Lidocaine 4 % Patch Adh..Patch) 1 patch TRANSDERMA DAILY [facility]; Protocol Last Admin: 01/23/24 09:39 Dose: 1 patch Documented By: MAR Nicotine Polacrilex (Nicotine Polacrilex 2 Mg Gum) 4 mg BUCCAL Q2H PRN PRN Reason: nicotine addiction Last Admin: 01/24/24 00:00 Dose: 4 mg Documented By: BELLA Comments: nicotine addiction Ondansetron HCl (Ondansetron Odt 4 Mg Tab.Rapdis) 4 mg TRANSLINGU Q6H PRN PRN Reason: Nausea and Vomiting Last Admin: 12/01/23 23:36 Dose: 4 mg Documented By: JOE Risperidone (Risperidone 1 Mg Tablet) 1 mg PO DAILY [facility] Last Admin: 01/23/24 09:39 Dose: 1 mg Documented By: MAR Risperidone (Risperidone 2 Mg Tablet) 2 mg PO BEDTIME [facility] Last Admin: 01/23/24 20:30 Dose: 2 mg Documented By: BELLA Labs 01/03/24 05:58 01/03/24 05:58 Assessment and Plan (1) Alcoholic Korsakoff syndrome: Status: Acute Plan [id number] 48yo F with OUD on Suboxone, AUD with Korsakoff syndrome presented with confusion on 09/19/23, awaiting guardianship/LTC placement Korsakoff syndrome - continue quetiapine, valproate, risperidone as per Psychiatry consultation - lacks capacity to make informed medical decisions - no behavioral issues OUD - Suboxone tobacco abuse - NRT VTE ppx - ambulatory In my clinical judgment, the patient requires continued inpatient hospitalization for the following reasons: long-term care placement Quality Stroke Does the patient have a stroke diagnosis?: No VTE Prior VTE?: No VTE Risk Level:: Medical - low VTE Device Contraindication: Treatment Not Indicated VTE Drug Contraindication: Treatment Not Indicated
[2024-01-24] MEDS: Acetaminophen 325 MG TABLET 650 MG PO (09:35)
[2024-01-24] MEDS: Divalproex Sodium 250 MG TABLET.DR PO ×3 (09:35→20:23)
[2024-01-24] MEDS: Buprenorphine/Naloxone 8/2 mg FILM 1 FILM SUBLINGUAL ×2 (09:35→20:23)
[2024-01-24] MEDS: Nicotine Polacrilex 2 MG GUM 4 MG BUCCAL ×4 (09:35→20:23)
[2024-01-24] MEDS: Lidocaine 4 % Patch ADH..PATCH 1 PATCH TRANSDERMA (09:35)
[2024-01-24] MEDS: risperiDONE 1 MG TABLET PO (09:36)
--- NOTE | 2024-01-24 14:19 | MHC.CM.PN ---
EMR REVIEWED, PER JERROD PIZANO LIAISON PT'S SISTER/GUARDIAN FOUND FROM [employer] THAT PT'S CHECK WAS BEING DEPOSITED TO A DEBIT CARD AND HAVE YET TO FIND OUT IF PT HAS A BALANCE OR FUNDS WERE MISAPPROPRIATED BY PT'S EX, LIAISON UNSURE IF THIS WILL EFFECT ELIGIBILITY, CM WILL CONT TO FOLLOW DC NEEDS.
[2024-01-24 16:00] VITALS: BP 119/54; PULSE 69; RESP 18; TEMP 36.1; O2SAT 96
[2024-01-24 19:08] VITALS: BP 95/53; PULSE 75; RESP 18; TEMP 36.6; O2SAT 95
[2024-01-24] MEDS: risperiDONE 2 MG TABLET PO (20:23)
[2024-01-25] MEDS: Acetaminophen 325 MG TABLET 650 MG PO ×3 (00:26→14:35)
[2024-01-25] MEDS: Nicotine Polacrilex 2 MG GUM 4 MG BUCCAL ×8 (01:39→23:40)
[2024-01-25 03:27] VITALS: BP 113/58; PULSE 71; RESP 16; TEMP 36.1; O2SAT 98
[2024-01-25 06:54] LABS: MANUAL DIFF FLAG NO
[2024-01-25 06:59] LABS: Basophils Absolute Auto 0.1 X10*3/uL (0.0-0.2); Basophils Percent Auto 1.1 % (0-2); Eosinophils Absolute Auto 0.5 X10*3/uL (0.0-0.4); Eosinophils Percent Auto 6.4 % (0-4); Hematocrit 34.2 % (37.0-47.0); Hemoglobin 11.5 g/dl (12.0-16.0); Imm Gran Abs Auto 0.03 X10*3/uL (0.00-0.03); Imm Gran Pct Auto 0.4 % (0.0-0.4); Lymphocytes Absolute Auto 2.4 X10*3/uL (1.2-4.9); Lymphocytes Percent Auto 33.6 % (20-40); Mean Corpuscular HGB Conc 33.6 g/dl (31.0-35.0); Mean Corpuscular Hemoglobin 32.7 pg (27.0-33.0); Mean Corpuscular Volume 97.2 fL (80.0-98.0); Monocytes Absolute Auto 0.5 X10*3/uL (0.1-1.2); Neutrophils Absolute Auto 3.7 x10*3/uL (2.0-8.3); Neutrophils Percent Auto 51.5 % (45-73); Platelet Count 151 X10*3/uL (160-400); Red Blood Count 3.52 X10*6/uL (4.20-5.50); Red Cell Distribution Width 11.6 % (11.0-16.0); White Blood Count 7.2 X10*3/uL (4.8-10.8)
[2024-01-25 07:05] VITALS: BP 125/67; PULSE 69; RESP 16; TEMP 36.2; O2SAT 95
[2024-01-25 07:32] LABS: Anion Gap 11 (12-20); Blood Urea Nitrogen 11 mg/dL (9-16); Calcium 9.7 mg/dL (8.4-10.2); Carbon Dioxide 32 mmol/L (22-29); Chloride 99 mmol/L (96-108); Creatinine Clr Calc Pharmacy 81.4; Estimated Glomerular Filt Rate > 60; Glucose Random 104 mg/dL (60-115); Potassium 4.2 mmol/L (3.3-5.1); Sodium 138 mmol/L (135-145)
[2024-01-25] MEDS: Buprenorphine/Naloxone 8/2 mg FILM 1 FILM SUBLINGUAL ×2 (08:34→20:56)
[2024-01-25] MEDS: risperiDONE 1 MG TABLET PO (08:35)
[2024-01-25] MEDS: Divalproex Sodium 250 MG TABLET.DR PO ×3 (08:35→20:56)
[2024-01-25] MEDS: Lidocaine 4 % Patch ADH..PATCH 1 PATCH TRANSDERMA (08:35)
--- NOTE | 2024-01-25 12:07 | HO.PM.IMPN ---
Subjective Subjective Date of Service: 01/25/24 Interval History: Being followed for placement Offers no acute complaints. Review of Systems All other system reviewed and are negative Physical Exam Vital Signs: Vital Signs: Last Vital Signs Temp 97.1 F 01/25/24 07:05 Pulse 69 01/25/24 07:05 Resp 16 01/25/24 07:05 BP 125/67 01/25/24 07:05 Pulse Ox 95 01/25/24 07:05 O2 Del Method Room Air 01/25/24 07:05 O2 Flow Rate 3 10/05/23 16:00 BMI result Body Mass Index 22.7 Const: Other: General awake alert, in no acute distress. CVS regular rate rhythm, Respiratory lungs clear to auscultation, no respiratory distress, no wheeze, no rhonchi. Gastrointestinal abdomen soft, non tender, bowel sounds audible. Extremities lower extremity edema resolved Neuro speech clear, no focal weakness. Psych impaired insight. Objective Data Active Medications Acetaminophen (Acetaminophen 325 Mg Tablet) 650 mg PO Q6H PRN PRN Reason: Pain, Mild (Pain Scale 1-3) Last Admin: 01/25/24 08:34 Dose: 650 mg Documented By: SANTIAGO Al Hydroxide/Mg Hydroxide (Magnesium Hydrox/Alum Hydrox 30 Ml Oral.Susp) 30 ml PO Q6H PRN PRN Reason: GI Upset Last Admin: 11/19/23 19:16 Dose: 30 ml Documented By: LAMIN Buprenorphine/Naloxone (Buprenorphine/Naloxone 8/2 Mg Film) 1 film SUBLINGUAL BID [facility] Last Admin: 01/25/24 08:34 Dose: 1 film Documented By: SANTIAGO Divalproex Sodium (Divalproex Sodium 250 Mg Tablet.Dr) 250 mg PO TID [facility] Last Admin: 01/25/24 08:35 Dose: 250 mg Documented By: SANTIAGO Lidocaine (Lidocaine 4 % Patch Adh..Patch) 1 patch TRANSDERMA DAILY [facility]; Protocol Last Admin: 01/25/24 08:35 Dose: 1 patch Documented By: SANTIAGO Nicotine Polacrilex (Nicotine Polacrilex 2 Mg Gum) 4 mg BUCCAL Q2H PRN PRN Reason: nicotine addiction Last Admin: 01/25/24 10:39 Dose: 4 mg Documented By: SANTIAGO Ondansetron HCl (Ondansetron Odt 4 Mg Tab.Rapdis) 4 mg TRANSLINGU Q6H PRN PRN Reason: Nausea and Vomiting Last Admin: 12/01/23 23:36 Dose: 4 mg Documented By: JOE Risperidone (Risperidone 1 Mg Tablet) 1 mg PO DAILY [facility] Last Admin: 01/25/24 08:35 Dose: 1 mg Documented By: SANTIAGO Risperidone (Risperidone 2 Mg Tablet) 2 mg PO BEDTIME [facility] Last Admin: 01/24/24 20:23 Dose: 2 mg Documented By: BELLA Labs 01/25/24 05:51 01/25/24 05:51 Labs: Laboratory Results - last 24 hr 01/25/24 05:51 MCV 97.2 MCH 32.7 MCHC 33.6 RDW 11.6 Plt Count 151 L MPV 11.0 Immature Gran % (Auto) 0.4 Neut % (Auto) 51.5 Lymph % (Auto) 33.6 [place] % (Auto) 7.0 Eos % (Auto) 6.4 H Baso % (Auto) 1.1 Lymph # (Auto) 2.4 [place] # (Auto) 0.5 Eos # (Auto) 0.5 H Baso # (Auto) 0.1 Abs Immat Gran (auto) 0.03 Absolute Neuts (auto) 3.7 Absolute Nucleated RBC 0.000 Nucleated RBC % (auto) 0.0 Anion Gap 11 L Estim Creat Clear Calc 81.4 Estimated GFR > 60 Random Glucose 104 Calcium 9.7 Assessment and Plan (1) Alcoholic Korsakoff syndrome: Status: Acute (2) Opioid use disorder: Status: Acute Plan 48yo F with OUD on Suboxone, AUD with Korsakoff syndrome presented with confusion on 09/19/23, awaiting guardianship/LTC placement Korsakoff syndrome - continue quetiapine, valproate, risperidone as per Psychiatry consultation - lacks capacity to make informed medical decisions - no behavioral issues OUD - Suboxone tobacco abuse - NRT VTE ppx - ambulatory In my clinical judgment, the patient requires continued inpatient hospitalization for the following reasons: long-term care placement Quality Stroke Does the patient have a stroke diagnosis?: No VTE Prior VTE?: No VTE Risk Level:: Medical - low VTE Device Contraindication: Treatment Not Indicated VTE Drug Contraindication: Treatment Not Indicated
[2024-01-25 15:16] VITALS: BP 100/50; PULSE 77; RESP 16; TEMP 36.2; O2SAT 96
[2024-01-25 19:47] VITALS: BP 93/55; PULSE 75; RESP 16; TEMP 36.4; O2SAT 96
[2024-01-25] MEDS: risperiDONE 2 MG TABLET PO (20:56)
[2024-01-26] MEDS: Acetaminophen 325 MG TABLET 650 MG PO ×2 (02:43→08:47)
[2024-01-26 03:56] VITALS: BP 90/55; PULSE 73; RESP 18; TEMP 36.3; O2SAT 96
--- NOTE | 2024-01-26 03:56 | PC.NURSE ---
Pt admitted from the ED to [facility] at 0333 on bed, alert and oriented to person, pt was oriented to room and hospital setting, instructed on use of callbell, noted with urinary frequency, bed alarm on, camera in place.
[2024-01-26 07:23] VITALS: BP 97/53; PULSE 68; RESP 16; TEMP 36.3; O2SAT 96
[2024-01-26] MEDS: risperiDONE 1 MG TABLET PO (08:47)
[2024-01-26] MEDS: Nicotine Polacrilex 2 MG GUM 4 MG BUCCAL ×6 (08:47→23:06)
[2024-01-26] MEDS: Divalproex Sodium 250 MG TABLET.DR PO ×3 (08:47→21:03)
[2024-01-26] MEDS: Lidocaine 4 % Patch ADH..PATCH 1 PATCH TRANSDERMA (08:48)
[2024-01-26] MEDS: Buprenorphine/Naloxone 8/2 mg FILM 1 FILM SUBLINGUAL ×2 (08:48→21:03)
--- NOTE | 2024-01-26 11:26 | HO.PM.IMPN ---
Subjective Subjective Date of Service: 01/26/24 Interval History: Being followed for placement. Offers no acute complaints, no behavioral issues noted, tolerating diet. Review of Systems All other system reviewed and negative Physical Exam Vital Signs: Vital Signs: Last Vital Signs Temp 97.3 F 01/26/24 07:23 Pulse 68 01/26/24 07:23 Resp 16 01/26/24 07:23 BP 97/53 L 01/26/24 07:23 Pulse Ox 96 01/26/24 07:23 O2 Del Method Room Air 01/26/24 07:23 O2 Flow Rate 3 10/05/23 16:00 BMI result Body Mass Index 22.7 Const: Other: General awake alert, in no acute distress. CVS regular rate rhythm, Respiratory lungs clear to auscultation, no respiratory distress, no wheeze, no rhonchi. Gastrointestinal abdomen soft, non tender, bowel sounds audible. Extremities lower extremity edema resolved Neuro speech clear, no focal weakness. Psych impaired insight. Objective Data Active Medications Acetaminophen (Acetaminophen 325 Mg Tablet) 650 mg PO Q6H PRN PRN Reason: Pain, Mild (Pain Scale 1-3) Last Admin: 01/26/24 08:47 Dose: 650 mg Documented By: SANTIAGO Al Hydroxide/Mg Hydroxide (Magnesium Hydrox/Alum Hydrox 30 Ml Oral.Susp) 30 ml PO Q6H PRN PRN Reason: GI Upset Last Admin: 11/19/23 19:16 Dose: 30 ml Documented By: LAMIN Buprenorphine/Naloxone (Buprenorphine/Naloxone 8/2 Mg Film) 1 film SUBLINGUAL BID [facility] Last Admin: 01/26/24 08:48 Dose: 1 film Documented By: SANTIAGO Divalproex Sodium (Divalproex Sodium 250 Mg Tablet.Dr) 250 mg PO TID [facility] Last Admin: 01/26/24 08:47 Dose: 250 mg Documented By: SANTIAGO Lidocaine (Lidocaine 4 % Patch Adh..Patch) 1 patch TRANSDERMA DAILY [facility]; Protocol Last Admin: 01/26/24 08:48 Dose: 1 patch Documented By: SANTIAGO Nicotine Polacrilex (Nicotine Polacrilex 2 Mg Gum) 4 mg BUCCAL Q2H PRN PRN Reason: nicotine addiction Last Admin: 01/26/24 08:47 Dose: 4 mg Documented By: SANTIAGO Ondansetron HCl (Ondansetron Odt 4 Mg Tab.Rapdis) 4 mg TRANSLINGU Q6H PRN PRN Reason: Nausea and Vomiting Last Admin: 12/01/23 23:36 Dose: 4 mg Documented By: JOE Risperidone (Risperidone 1 Mg Tablet) 1 mg PO DAILY [facility] Last Admin: 01/26/24 08:47 Dose: 1 mg Documented By: SANTIAGO Risperidone (Risperidone 2 Mg Tablet) 2 mg PO BEDTIME [facility] Last Admin: 01/25/24 20:56 Dose: 2 mg Documented By: BELLA Labs 01/25/24 05:51 01/25/24 05:51 Assessment and Plan (1) Alcoholic Korsakoff syndrome: Status: Acute (2) Opioid use disorder: Status: Acute Plan 48yo F with OUD on Suboxone, AUD with Korsakoff syndrome presented with confusion on 09/19/23, awaiting guardianship/LTC placement Korsakoff syndrome - continue quetiapine, valproate, risperidone as per Psychiatry consultation - lacks capacity to make informed medical decisions - no behavioral issues OUD - Suboxone tobacco abuse - NRT VTE ppx - ambulatory In my clinical judgment, the patient requires continued inpatient hospitalization for the following reasons: long-term care placement Quality Stroke Does the patient have a stroke diagnosis?: No VTE Prior VTE?: No VTE Risk Level:: Medical - low VTE Device Contraindication: Treatment Not Indicated VTE Drug Contraindication: Treatment Not Indicated
[2024-01-26 15:17] VITALS: BP 104/57; PULSE 74; RESP 18; TEMP 36.3; O2SAT 96
[2024-01-26 19:24] VITALS: BP 101/64; PULSE 75; RESP 18; TEMP 36.2; O2SAT 97
[2024-01-26] MEDS: risperiDONE 2 MG TABLET PO (21:03)
[2024-01-27 03:23] VITALS: BP 105/61; PULSE 73; RESP 18; TEMP 36.6; O2SAT 96
[2024-01-27 07:50] VITALS: BP 105/60; PULSE 69; RESP 16; TEMP 35.9; O2SAT 95
[2024-01-27] MEDS: Buprenorphine/Naloxone 8/2 mg FILM 1 FILM SUBLINGUAL ×2 (08:38→20:13)
[2024-01-27] MEDS: Lidocaine 4 % Patch ADH..PATCH 1 PATCH TRANSDERMA (08:38)
[2024-01-27] MEDS: risperiDONE 1 MG TABLET PO (08:38)
[2024-01-27] MEDS: Divalproex Sodium 250 MG TABLET.DR PO ×3 (08:38→20:13)
[2024-01-27] MEDS: Nicotine Polacrilex 2 MG GUM 4 MG BUCCAL ×3 (08:41→19:36)
--- NOTE | 2024-01-27 11:45 | P.PNIM_ITS ---
Subjective Subjective Date of Service: 01/27/24 Interval History: Being followed for placement Offers no acute complaints, no behavioral issues noted. Review of Systems All other system reviewed and negative. Physical Exam 2 Vital Signs: Vital Signs: Last Vital Signs Temp 96.6 F L 01/27/24 07:50 Pulse 69 01/27/24 07:50 Resp 16 01/27/24 07:50 BP 105/60 01/27/24 07:50 Pulse Ox 95 01/27/24 07:50 O2 Del Method Room Air 01/27/24 07:50 O2 Flow Rate 3 10/05/23 16:00 BMI result Body Mass Index 22.7 Const: Other: General awake alert, in no acute distress. CVS regular rate rhythm, Respiratory lungs clear to auscultation, no respiratory distress, no wheeze, no rhonchi. Gastrointestinal abdomen soft, non tender, bowel sounds audible. Extremities lower extremity edema resolved Neuro speech clear, no focal weakness. Psych impaired insight. Objective Data Active Medications Acetaminophen (Acetaminophen 325 Mg Tablet) 650 mg PO Q6H PRN PRN Reason: Pain, Mild (Pain Scale 1-3) Last Admin: 01/26/24 08:47 Dose: 650 mg Documented By: SANTIAGO Al Hydroxide/Mg Hydroxide (Magnesium Hydrox/Alum Hydrox 30 Ml Oral.Susp) 30 ml PO Q6H PRN PRN Reason: GI Upset Last Admin: 11/19/23 19:16 Dose: 30 ml Documented By: HARJEETM Buprenorphine/Naloxone (Buprenorphine/Naloxone 8/2 Mg Film) 1 film SUBLINGUAL BID [facility] Last Admin: 01/27/24 08:38 Dose: 1 film Documented By: KVNG Divalproex Sodium (Divalproex Sodium 250 Mg Tablet.Dr) 250 mg PO TID [facility] Last Admin: 01/27/24 08:38 Dose: 250 mg Documented By: KVNG Lidocaine (Lidocaine 4 % Patch Adh..Patch) 1 patch TRANSDERMA DAILY [facility]; Protocol Last Admin: 01/27/24 08:38 Dose: 1 patch Documented By: KVNG Nicotine Polacrilex (Nicotine Polacrilex 2 Mg Gum) 4 mg BUCCAL Q2H PRN PRN Reason: nicotine addiction Last Admin: 01/27/24 08:41 Dose: 4 mg Documented By: KVNG Ondansetron HCl (Ondansetron Odt 4 Mg Tab.Rapdis) 4 mg TRANSLINGU Q6H PRN PRN Reason: Nausea and Vomiting Last Admin: 12/01/23 23:36 Dose: 4 mg Documented By: JOE Risperidone (Risperidone 1 Mg Tablet) 1 mg PO DAILY [facility] Last Admin: 01/27/24 08:38 Dose: 1 mg Documented By: KVNG Risperidone (Risperidone 2 Mg Tablet) 2 mg PO BEDTIME [facility] Last Admin: 01/26/24 21:03 Dose: 2 mg Documented By: HARJEETM Labs 01/25/24 05:51 01/25/24 05:51 Assessment and Plan (1) Alcoholic Korsakoff syndrome: Status: Acute (2) Opioid use disorder: Status: Acute Plan 48yo F with OUD on Suboxone, AUD with Korsakoff syndrome presented with confusion on 09/19/23, awaiting guardianship/LTC placement Korsakoff syndrome - continue quetiapine, valproate, risperidone as per Psychiatry consultation - lacks capacity to make informed medical decisions - no behavioral issues OUD - Suboxone tobacco abuse - NRT VTE ppx - ambulatory In my clinical judgment, the patient requires continued inpatient hospitalization for the following reasons: long-term care placement Quality Stroke Does the patient have a stroke diagnosis?: No VTE Prior VTE?: No VTE Risk Level:: Medical - low VTE Device Contraindication: Treatment Not Indicated VTE Drug Contraindication: Treatment Not Indicated
--- NOTE | 2024-01-27 12:24 | MHC.CM.PN ---
Patient continues to await LTC bed at [facility]. CM reached out to [facility] for update, no response at this time. CM will continue to follow.
[2024-01-27 15:36] VITALS: BP 92/55; PULSE 75; RESP 16; TEMP 36.8; O2SAT 94
--- NOTE | 2024-01-27 18:15 | PC.NURSE ---
Pt calm and cooperative. Ambulates independently in room and occasionally steps out of room requesting nicotine gum. Easily redirected back into room.
[2024-01-27 19:28] VITALS: BP 100/55; PULSE 71; RESP 18; TEMP 36.6; O2SAT 97
[2024-01-27] MEDS: Acetaminophen 325 MG TABLET 650 MG PO (19:36)
[2024-01-27] MEDS: risperiDONE 2 MG TABLET PO (20:13)
[2024-01-28] MEDS: Nicotine Polacrilex 2 MG GUM 4 MG BUCCAL ×8 (00:41→20:55)
[2024-01-28 03:07] VITALS: BP 108/62; PULSE 79; RESP 18; TEMP 36.6; O2SAT 98
[2024-01-28 07:14] VITALS: BP 107/55; PULSE 70; RESP 14; TEMP 36.3; O2SAT 97
[2024-01-28] MEDS: Lidocaine 4 % Patch ADH..PATCH 1 PATCH TRANSDERMA (08:41)
[2024-01-28] MEDS: risperiDONE 1 MG TABLET PO (08:42)
[2024-01-28] MEDS: Buprenorphine/Naloxone 8/2 mg FILM 1 FILM SUBLINGUAL ×2 (08:42→20:55)
[2024-01-28] MEDS: Divalproex Sodium 250 MG TABLET.DR PO ×3 (08:42→20:55)
--- NOTE | 2024-01-28 12:27 | MHC.CM.PN ---
Per CM director, patient's insurance has a long term benefit and this information has been shared w/ [employer] middleware administrator. [employer] will work w/ insurance company for single case agreement. CM will continue to follow.
--- NOTE | 2024-01-28 13:21 | P.PNIM_ITS ---
Subjective Subjective Date of Service: 01/28/24 Interval History: Being followed for placement No acute complaints, tolerating diet, ambulating in room ,no behavioral issues. Review of Systems All other system reviewed and negative. Physical Exam 2 Vital Signs: Vital Signs: Last Vital Signs Temp 97.3 F 01/28/24 07:14 Pulse 70 01/28/24 07:14 Resp 14 01/28/24 07:14 BP 107/55 L 01/28/24 07:14 Pulse Ox 97 01/28/24 07:14 O2 Del Method Room Air 01/28/24 07:14 O2 Flow Rate 3 10/05/23 16:00 BMI result Body Mass Index 22.7 Const: Other: General awake alert, in no acute distress. CVS regular rate rhythm, Respiratory lungs clear to auscultation, no respiratory distress, no wheeze, no rhonchi. Gastrointestinal abdomen soft, non tender, bowel sounds audible. Extremities lower extremity edema resolved Neuro speech clear, no focal weakness. Psych impaired insight. Objective Data Active Medications Acetaminophen (Acetaminophen 325 Mg Tablet) 650 mg PO Q6H PRN PRN Reason: Pain, Mild (Pain Scale 1-3) Last Admin: 01/27/24 19:36 Dose: 650 mg Documented By: LAMIN Al Hydroxide/Mg Hydroxide (Magnesium Hydrox/Alum Hydrox 30 Ml Oral.Susp) 30 ml PO Q6H PRN PRN Reason: GI Upset Last Admin: 11/19/23 19:16 Dose: 30 ml Documented By: LAMIN Buprenorphine/Naloxone (Buprenorphine/Naloxone 8/2 Mg Film) 1 film SUBLINGUAL BID [facility] Last Admin: 01/28/24 08:42 Dose: 1 film Documented By: ANNA Divalproex Sodium (Divalproex Sodium 250 Mg Tablet.Dr) 250 mg PO TID [facility] Last Admin: 01/28/24 08:42 Dose: 250 mg Documented By: ANNA Lidocaine (Lidocaine 4 % Patch Adh..Patch) 1 patch TRANSDERMA DAILY [facility]; Protocol Last Admin: 01/28/24 08:41 Dose: 1 patch Documented By: ANNA Nicotine Polacrilex (Nicotine Polacrilex 2 Mg Gum) 4 mg BUCCAL Q2H PRN PRN Reason: nicotine addiction Last Admin: 01/28/24 11:30 Dose: 4 mg Documented By: ANNA Ondansetron HCl (Ondansetron Odt 4 Mg Tab.Rapdis) 4 mg TRANSLINGU Q6H PRN PRN Reason: Nausea and Vomiting Last Admin: 12/01/23 23:36 Dose: 4 mg Documented By: JOE Risperidone (Risperidone 1 Mg Tablet) 1 mg PO DAILY [facility] Last Admin: 01/28/24 08:42 Dose: 1 mg Documented By: ANNA Risperidone (Risperidone 2 Mg Tablet) 2 mg PO BEDTIME [facility] Last Admin: 01/27/24 20:13 Dose: 2 mg Documented By: LARISM Labs 01/25/24 05:51 01/25/24 05:51 Assessment and Plan (1) Alcoholic Korsakoff syndrome: Status: Acute (2) Opioid use disorder: Status: Acute Plan 48yo F with OUD on Suboxone, AUD with Korsakoff syndrome presented with confusion on 09/19/23, awaiting guardianship/LTC placement Korsakoff syndrome - continue quetiapine, valproate, risperidone as per Psychiatry consultation - lacks capacity to make informed medical decisions - no behavioral issues OUD - Suboxone tobacco abuse - NRT VTE ppx - ambulatory In my clinical judgment, the patient requires continued inpatient hospitalization for the following reasons: long-term care placement Quality Stroke Does the patient have a stroke diagnosis?: No VTE Prior VTE?: No VTE Risk Level:: Medical - low VTE Device Contraindication: Treatment Not Indicated VTE Drug Contraindication: Treatment Not Indicated
--- NOTE | 2024-01-28 15:47 | MHC.CM.PN ---
CM RECEIVED A CALL FROM PT'S SISTER /GUARDIAN REPORTING THE [facility] NEEDS A LETTER ON [facility] LETTERHEAD W/DATES PT HAS BEEN INPT, LETTER DRAWN UP AND FAXED TO [phone] W/FACE SHEET/H&P, CM [employer] AWAITING FAX CONFIRMATION.
[2024-01-28 16:00] VITALS: BP 112/64; PULSE 78; RESP 16; TEMP 36.3; O2SAT 95
[2024-01-28 19:31] VITALS: BP 100/52; PULSE 86; RESP 18; TEMP 36.9; O2SAT 93
[2024-01-28] MEDS: risperiDONE 2 MG TABLET PO (20:55)
[2024-01-28] MEDS: Acetaminophen 325 MG TABLET 650 MG PO (20:56)
[2024-01-29 03:45] VITALS: BP 107/59; PULSE 64; RESP 16; TEMP 36.2; O2SAT 99
[2024-01-29] MEDS: Nicotine Polacrilex 2 MG GUM 4 MG BUCCAL ×4 (03:55→21:24)
[2024-01-29 07:34] VITALS: BP 101/52; PULSE 66; RESP 16; TEMP 36.2; O2SAT 95
[2024-01-29] MEDS: Lidocaine 4 % Patch ADH..PATCH 1 PATCH TRANSDERMA (08:27)
[2024-01-29] MEDS: Acetaminophen 325 MG TABLET 650 MG PO ×2 (08:27→21:24)
[2024-01-29] MEDS: Buprenorphine/Naloxone 8/2 mg FILM 1 FILM SUBLINGUAL ×2 (08:27→21:25)
[2024-01-29] MEDS: risperiDONE 1 MG TABLET PO (08:28)
[2024-01-29] MEDS: Divalproex Sodium 250 MG TABLET.DR PO ×3 (08:28→21:24)
--- NOTE | 2024-01-29 10:26 | HO.PM.IMPN ---
Subjective Subjective Date of Service: 01/29/24 Interval History: Being followed for placement Complaining of headache this morning no visual symptoms no dizziness tolerating diet, no other acute issues overnight. Review of Systems All other system reviewed and negative Physical Exam Vital Signs: Vital Signs: Last Vital Signs Temp 97.2 F 01/29/24 07:34 Pulse 66 01/29/24 07:34 Resp 16 01/29/24 07:34 BP 101/52 L 01/29/24 07:34 Pulse Ox 95 01/29/24 07:34 O2 Del Method Room Air 01/29/24 07:34 O2 Flow Rate 3 10/05/23 16:00 BMI result Body Mass Index 22.7 Const: Other: General awake alert, in no acute distress. CVS regular rate rhythm, Respiratory lungs clear to auscultation, no respiratory distress, no wheeze, no rhonchi. Gastrointestinal abdomen soft, non tender, bowel sounds audible. Extremities lower extremity edema resolved Neuro speech clear, no focal weakness. Psych impaired insight. Objective Data Active Medications Acetaminophen (Acetaminophen 325 Mg Tablet) 650 mg PO Q6H PRN PRN Reason: Pain, Mild (Pain Scale 1-3) Last Admin: 01/29/24 08:27 Dose: 650 mg Documented By: CHRISTOFER Al Hydroxide/Mg Hydroxide (Magnesium Hydrox/Alum Hydrox 30 Ml Oral.Susp) 30 ml PO Q6H PRN PRN Reason: GI Upset Last Admin: 11/19/23 19:16 Dose: 30 ml Documented By: ODRISM Buprenorphine/Naloxone (Buprenorphine/Naloxone 8/2 Mg Film) 1 film SUBLINGUAL BID [facility] Last Admin: 01/29/24 08:27 Dose: 1 film Documented By: CHRISTOFER Divalproex Sodium (Divalproex Sodium 250 Mg Tablet.Dr) 250 mg PO TID [facility] Last Admin: 01/29/24 08:28 Dose: 250 mg Documented By: CHRISTOFER Lidocaine (Lidocaine 4 % Patch Adh..Patch) 1 patch TRANSDERMA DAILY [facility]; Protocol Last Admin: 01/29/24 08:27 Dose: 1 patch Documented By: CHRISTOFER Nicotine Polacrilex (Nicotine Polacrilex 2 Mg Gum) 4 mg BUCCAL Q2H PRN PRN Reason: nicotine addiction Last Admin: 01/29/24 08:28 Dose: 4 mg Documented By: CHRISTOFER Ondansetron HCl (Ondansetron Odt 4 Mg Tab.Rapdis) 4 mg TRANSLINGU Q6H PRN PRN Reason: Nausea and Vomiting Last Admin: 12/01/23 23:36 Dose: 4 mg Documented By: JOE Risperidone (Risperidone 1 Mg Tablet) 1 mg PO DAILY [facility] Last Admin: 01/29/24 08:28 Dose: 1 mg Documented By: CHRISTOFER Risperidone (Risperidone 2 Mg Tablet) 2 mg PO BEDTIME [facility] Last Admin: 01/28/24 20:55 Dose: 2 mg Documented By: ANNA Labs 01/25/24 05:51 01/25/24 05:51 Assessment and Plan (1) Alcoholic Korsakoff syndrome: Status: Acute (2) Opioid use disorder: Status: Acute Plan 48yo F with OUD on Suboxone, AUD with Korsakoff syndrome presented with confusion on 09/19/23, awaiting guardianship/LTC placement Korsakoff syndrome - continue quetiapine, valproate, risperidone as per Psychiatry consultation - lacks capacity to make informed medical decisions - no behavioral issues OUD - Suboxone tobacco abuse - NRT VTE ppx - ambulatory In my clinical judgment, the patient requires continued inpatient hospitalization for the following reasons: long-term care placement Quality Stroke Does the patient have a stroke diagnosis?: No VTE Prior VTE?: No VTE Risk Level:: Medical - low VTE Device Contraindication: Treatment Not Indicated VTE Drug Contraindication: Treatment Not Indicated
--- NOTE | 2024-01-29 12:07 | MHC.CM.PN ---
Addendum entered by Jihan Butler RN 01/29/24 15:56: Per CM director, facility has rec'd auth from [facility]. Auth # [id number]. Still awaiting response to [facility] request (for special jay rate) CM sent message via [employer] and placed call to facility liaison to discuss any other requirements. Liaison declined to speak on the phone and states he will respond in [employer]. Awaiting response. Original Note: CM requested update from [facility] liaison. Awaiting response.
[2024-01-29 14:57] VITALS: BP 108/60; PULSE 70; RESP 16; TEMP 36.6; O2SAT 94
[2024-01-29 19:13] VITALS: BP 107/57; PULSE 70; RESP 18; TEMP 36.6; O2SAT 97
[2024-01-29] MEDS: risperiDONE 2 MG TABLET PO (21:25)
[2024-01-30] MEDS: Nicotine Polacrilex 2 MG GUM 4 MG BUCCAL ×5 (05:32→21:41)
[2024-01-30 07:33] VITALS: BP 98/65; PULSE 77; RESP 16; TEMP 36.2; O2SAT 96
[2024-01-30 07:43] VITALS: BP 98/65; PULSE 76; RESP 16; TEMP 36.2; O2SAT 98
[2024-01-30] MEDS: risperiDONE 1 MG TABLET PO (08:13)
[2024-01-30] MEDS: Lidocaine 4 % Patch ADH..PATCH 1 PATCH TRANSDERMA (08:13)
[2024-01-30] MEDS: Divalproex Sodium 250 MG TABLET.DR PO ×3 (08:13→21:42)
[2024-01-30] MEDS: Buprenorphine/Naloxone 8/2 mg FILM 1 FILM SUBLINGUAL ×2 (08:13→21:43)
[2024-01-30 15:10] VITALS: BP 102/60; PULSE 77; RESP 16; TEMP 36.2; O2SAT 96
--- NOTE | 2024-01-30 15:20 | P.PNIM_ITS ---
Subjective Subjective Date of Service: 01/30/24 Interval History: headache resolved no other issues Review of Systems Review of Systems: Yes all other systems are reviewed and are negative Physical Exam 2 Vital Signs: Vital Signs: Last Vital Signs Temp 97.1 F 01/30/24 15:10 Pulse 77 01/30/24 15:10 Resp 16 01/30/24 15:10 BP 102/60 01/30/24 15:10 Pulse Ox 96 01/30/24 15:10 O2 Del Method Room Air 01/30/24 15:10 O2 Flow Rate 3 10/05/23 16:00 BMI result Body Mass Index 22.7 Gen: in no acute distress Lungs: normal efforts Neuro: alert, no weakness Psych: impaired insight Objective Data Active Medications Acetaminophen (Acetaminophen 325 Mg Tablet) 650 mg PO Q6H PRN PRN Reason: Pain, Mild (Pain Scale 1-3) Last Admin: 01/29/24 21:24 Dose: 650 mg Documented By: MAICO Al Hydroxide/Mg Hydroxide (Magnesium Hydrox/Alum Hydrox 30 Ml Oral.Susp) 30 ml PO Q6H PRN PRN Reason: GI Upset Last Admin: 11/19/23 19:16 Dose: 30 ml Documented By: LAMIN Buprenorphine/Naloxone (Buprenorphine/Naloxone 8/2 Mg Film) 1 film SUBLINGUAL BID [facility] Last Admin: 01/30/24 08:13 Dose: 1 film Documented By: LUKAS Divalproex Sodium (Divalproex Sodium 250 Mg Tablet.Dr) 250 mg PO TID [facility] Last Admin: 01/30/24 14:20 Dose: 250 mg Documented By: JOSEPH Lidocaine (Lidocaine 4 % Patch Adh..Patch) 1 patch TRANSDERMA DAILY [facility]; Protocol Last Admin: 01/30/24 08:13 Dose: 1 patch Documented By: LUKAS Nicotine Polacrilex (Nicotine Polacrilex 2 Mg Gum) 4 mg BUCCAL Q2H PRN PRN Reason: nicotine addiction Last Admin: 01/30/24 14:20 Dose: 4 mg Documented By: JOSEPH Ondansetron HCl (Ondansetron Odt 4 Mg Tab.Rapdis) 4 mg TRANSLINGU Q6H PRN PRN Reason: Nausea and Vomiting Last Admin: 12/01/23 23:36 Dose: 4 mg Documented By: JOE Risperidone (Risperidone 1 Mg Tablet) 1 mg PO DAILY [facility] Last Admin: 01/30/24 08:13 Dose: 1 mg Documented By: LUKAS Risperidone (Risperidone 2 Mg Tablet) 2 mg PO BEDTIME [facility] Last Admin: 01/29/24 21:25 Dose: 2 mg Documented By: MAICO Labs 01/25/24 05:51 01/25/24 05:51 Assessment and Plan (1) Alcoholic Korsakoff syndrome: Status: Acute (2) Opioid use disorder: Status: Acute Plan d119 48yo F with OUD on Suboxone, AUD with Korsakoff syndrome presented with confusion on 09/19/23, awaiting guardianship/LTC placement Korsakoff syndrome - continue quetiapine, valproate, risperidone as per Psychiatry consultation - lacks capacity to make informed medical decisions - no behavioral issues OUD - Suboxone tobacco abuse - NRT VTE ppx - ambulatory In my clinical judgment, the patient requires continued inpatient hospitalization for the following reasons: long-term care placement Quality Stroke Does the patient have a stroke diagnosis?: No VTE Prior VTE?: No VTE Risk Level:: Medical - low VTE Device Contraindication: Treatment Not Indicated VTE Drug Contraindication: Treatment Not Indicated
[2024-01-30 19:47] VITALS: BP 110/61; PULSE 77; RESP 18; TEMP 36.1; O2SAT 94
[2024-01-30] MEDS: risperiDONE 2 MG TABLET PO (21:42)
[2024-01-30] MEDS: Acetaminophen 325 MG TABLET 650 MG PO (21:42)
[2024-01-31 07:31] VITALS: BP 113/63; PULSE 65; RESP 16; TEMP 36.1; O2SAT 96
[2024-01-31] MEDS: Buprenorphine/Naloxone 8/2 mg FILM 1 FILM SUBLINGUAL ×2 (08:41→21:50)
[2024-01-31] MEDS: risperiDONE 1 MG TABLET PO (08:41)
[2024-01-31] MEDS: Nicotine Polacrilex 2 MG GUM 4 MG BUCCAL ×4 (08:42→21:49)
[2024-01-31] MEDS: Acetaminophen 325 MG TABLET 650 MG PO ×3 (08:42→21:49)
[2024-01-31] MEDS: Lidocaine 4 % Patch ADH..PATCH 1 PATCH TRANSDERMA (08:42)
[2024-01-31] MEDS: Divalproex Sodium 250 MG TABLET.DR PO ×3 (08:42→21:50)
--- NOTE | 2024-01-31 10:39 | P.PNIM_ITS ---
Subjective Subjective Date of Service: 01/31/24 Interval History: no new complaints Review of Systems Review of Systems: Yes all other systems are reviewed and are negative Physical Exam 2 Vital Signs: Vital Signs: Last Vital Signs Temp 97.0 F 01/31/24 07:31 Pulse 65 01/31/24 07:31 Resp 16 01/31/24 07:31 BP 113/63 01/31/24 07:31 Pulse Ox 96 01/31/24 07:31 O2 Del Method Room Air 01/31/24 07:31 O2 Flow Rate 3 10/05/23 16:00 BMI result Body Mass Index 22.7 Gen: in no acute distress Lungs: normal efforts Neuro: alert, no weakness Psych: impaired insight Objective Data Active Medications Acetaminophen (Acetaminophen 325 Mg Tablet) 650 mg PO Q6H PRN PRN Reason: Pain, Mild (Pain Scale 1-3) Last Admin: 01/31/24 08:42 Dose: 650 mg Documented By: MAR Al Hydroxide/Mg Hydroxide (Magnesium Hydrox/Alum Hydrox 30 Ml Oral.Susp) 30 ml PO Q6H PRN PRN Reason: GI Upset Last Admin: 11/19/23 19:16 Dose: 30 ml Documented By: ODRISM Buprenorphine/Naloxone (Buprenorphine/Naloxone 8/2 Mg Film) 1 film SUBLINGUAL BID [facility] Last Admin: 01/31/24 08:41 Dose: 1 film Documented By: MAR Divalproex Sodium (Divalproex Sodium 250 Mg Tablet.Dr) 250 mg PO TID [facility] Last Admin: 01/31/24 08:42 Dose: 250 mg Documented By: MAR Lidocaine (Lidocaine 4 % Patch Adh..Patch) 1 patch TRANSDERMA DAILY [facility]; Protocol Last Admin: 01/31/24 08:42 Dose: 1 patch Documented By: MAR Nicotine Polacrilex (Nicotine Polacrilex 2 Mg Gum) 4 mg BUCCAL Q2H PRN PRN Reason: nicotine addiction Last Admin: 01/31/24 08:42 Dose: 4 mg Documented By: MAR Ondansetron HCl (Ondansetron Odt 4 Mg Tab.Rapdis) 4 mg TRANSLINGU Q6H PRN PRN Reason: Nausea and Vomiting Last Admin: 12/01/23 23:36 Dose: 4 mg Documented By: HO.CHOIP Risperidone (Risperidone 1 Mg Tablet) 1 mg PO DAILY [facility] Last Admin: 01/31/24 08:41 Dose: 1 mg Documented By: COTEMA Risperidone (Risperidone 2 Mg Tablet) 2 mg PO BEDTIME [facility] Last Admin: 01/30/24 21:42 Dose: 2 mg Documented By: MAICO Labs 01/25/24 05:51 01/25/24 05:51 Assessment and Plan (1) Alcoholic Korsakoff syndrome: Status: Acute (2) Opioid use disorder: Status: Acute Plan d120 48yo F with OUD on Suboxone, AUD with Korsakoff syndrome presented with confusion on 09/19/23, awaiting guardianship/LTC placement Korsakoff syndrome - continue quetiapine, valproate, risperidone as per Psychiatry consultation - lacks capacity to make informed medical decisions - no behavioral issues OUD - Suboxone tobacco abuse - NRT VTE ppx - ambulatory In my clinical judgment, the patient requires continued inpatient hospitalization for the following reasons: long-term care placement Total time managing care of this patient today: 25 minutes. Quality Stroke Does the patient have a stroke diagnosis?: No VTE Prior VTE?: No VTE Risk Level:: Medical - low VTE Device Contraindication: Treatment Not Indicated VTE Drug Contraindication: Treatment Not Indicated
--- NOTE | 2024-01-31 12:06 | MHC.CM.PN ---
EMR REVIEWED, CM CONTACTED PT'S SISTER CORNELIO ON 01/29 AT NUMBER ON FILE TO UPDATE HER ON EXPECTED DC FRIDAY 02/02 AND LET THEM KNOW THEY CAN [employer]INTER THE LETTER/FAX CONFIRMATION THAT CM HAD FAXED TO FOR PT, [employer]FF[employer]ULT[employer] W/SYSTEM AND CORNELIO ASKED IF WE COULD CALL HER THE SISTER WHO WAS W/HER, CM DID ATTEMPT TO CALL HOWEVER NO ANSWER, DETAIED MESSAGE LEFT W/CM CONTACT INFO. PER CM DIRECTOR ANTIC PT'S [employer] MEDICAID AND FACILITY SHOULD HAVE AGREED ON PAYMENT/CONTRACT BY FRIDAY 02/02, CM WILL CONT TO FOLLOW DC NEEDS.
[2024-01-31 15:07] VITALS: BP 104/55; PULSE 70; RESP 16; TEMP 36.4; O2SAT 95
[2024-01-31 19:07] VITALS: BP 104/58; PULSE 76; RESP 18; TEMP 36.3; O2SAT 7
[2024-01-31] MEDS: risperiDONE 2 MG TABLET PO (21:50)
[2024-02-01 03:20] VITALS: BP 93/50; PULSE 70; RESP 18; TEMP 36.3; O2SAT 92
[2024-02-01 07:49] VITALS: BP 117/58; PULSE 69; RESP 18; TEMP 36.1; O2SAT 97
[2024-02-01] MEDS: Lidocaine 4 % Patch ADH..PATCH 1 PATCH TRANSDERMA (08:31)
[2024-02-01] MEDS: Divalproex Sodium 250 MG TABLET.DR PO ×3 (08:32→20:57)
[2024-02-01] MEDS: Acetaminophen 325 MG TABLET 650 MG PO ×2 (08:32→14:32)
[2024-02-01] MEDS: Buprenorphine/Naloxone 8/2 mg FILM 1 FILM SUBLINGUAL ×2 (08:32→20:57)
[2024-02-01] MEDS: Nicotine Polacrilex 2 MG GUM 4 MG BUCCAL ×6 (08:32→20:57)
[2024-02-01] MEDS: risperiDONE 1 MG TABLET PO (08:32)
--- NOTE | 2024-02-01 10:26 | P.PNIM_ITS ---
Subjective Subjective Date of Service: 02/01/24 Interval History: no new events Review of Systems Review of Systems: Yes all other systems are reviewed and are negative Physical Exam 2 Vital Signs: Vital Signs: Last Vital Signs Temp 97.0 F 02/01/24 07:49 Pulse 69 02/01/24 07:49 Resp 18 02/01/24 07:49 BP 117/58 L 02/01/24 07:49 Pulse Ox 97 02/01/24 07:49 O2 Del Method Room Air 02/01/24 07:49 O2 Flow Rate 3 10/05/23 16:00 BMI result Body Mass Index 22.7 Gen: in no acute distress Lungs: normal efforts Neuro: alert, no weakness Psych: impaired insight Objective Data Active Medications Acetaminophen (Acetaminophen 325 Mg Tablet) 650 mg PO Q6H PRN PRN Reason: Pain, Mild (Pain Scale 1-3) Last Admin: 02/01/24 08:32 Dose: 650 mg Documented By: SILVESTRE Al Hydroxide/Mg Hydroxide (Magnesium Hydrox/Alum Hydrox 30 Ml Oral.Susp) 30 ml PO Q6H PRN PRN Reason: GI Upset Last Admin: 11/19/23 19:16 Dose: 30 ml Documented By: LARISBaldo Buprenorphine/Naloxone (Buprenorphine/Naloxone 8/2 Mg Film) 1 film SUBLINGUAL BID [facility] Last Admin: 02/01/24 08:32 Dose: 1 film Documented By: SILVESTRE Divalproex Sodium (Divalproex Sodium 250 Mg Tablet.Dr) 250 mg PO TID [facility] Last Admin: 02/01/24 08:32 Dose: 250 mg Documented By: SILVESTRE Lidocaine (Lidocaine 4 % Patch Adh..Patch) 1 patch TRANSDERMA DAILY [facility]; Protocol Last Admin: 02/01/24 08:31 Dose: 1 patch Documented By: SILVESTRE Nicotine Polacrilex (Nicotine Polacrilex 2 Mg Gum) 4 mg BUCCAL Q2H PRN PRN Reason: nicotine addiction Last Admin: 02/01/24 08:32 Dose: 4 mg Documented By: SILVESTRE Ondansetron HCl (Ondansetron Odt 4 Mg Tab.Rapdis) 4 mg TRANSLINGU Q6H PRN PRN Reason: Nausea and Vomiting Last Admin: 12/01/23 23:36 Dose: 4 mg Documented By: JOE Risperidone (Risperidone 1 Mg Tablet) 1 mg PO DAILY [facility] Last Admin: 02/01/24 08:32 Dose: 1 mg Documented By: SILVESTRE Risperidone (Risperidone 2 Mg Tablet) 2 mg PO BEDTIME [facility] Last Admin: 01/31/24 21:50 Dose: 2 mg Documented By: TANK Labs 01/25/24 05:51 01/25/24 05:51 Assessment and Plan (1) Alcoholic Korsakoff syndrome: Status: Acute (2) Opioid use disorder: Status: Acute Plan d121 48yo F with OUD on Suboxone, AUD with Korsakoff syndrome presented with confusion on 09/19/23, awaiting guardianship/LTC placement Korsakoff syndrome - continue quetiapine, valproate, risperidone as per Psychiatry consultation - lacks capacity to make informed medical decisions - no behavioral issues OUD - Suboxone tobacco abuse - NRT VTE ppx - ambulatory In my clinical judgment, the patient requires continued inpatient hospitalization for the following reasons: long-term care placement Total time managing care of this patient today: 25 minutes. Quality Stroke Does the patient have a stroke diagnosis?: No VTE Prior VTE?: No VTE Risk Level:: Medical - low VTE Device Contraindication: Treatment Not Indicated VTE Drug Contraindication: Treatment Not Indicated
[2024-02-01 15:38] VITALS: BP 99/60; PULSE 71; RESP 14; TEMP 36.3; O2SAT 96
[2024-02-01 20:00] VITALS: BP 94/49; PULSE 67; RESP 20; TEMP 36.3; O2SAT 96
[2024-02-01] MEDS: risperiDONE 2 MG TABLET PO (20:57)
[2024-02-02 03:14] VITALS: BP 103/59; PULSE 78; RESP 16; TEMP 36.4; O2SAT 97
[2024-02-02 08:00] VITALS: BP 115/62; PULSE 77; RESP 18; TEMP 36.1; O2SAT 97
[2024-02-02] MEDS: Lidocaine 4 % Patch ADH..PATCH 1 PATCH TRANSDERMA (08:31)
[2024-02-02] MEDS: Acetaminophen 325 MG TABLET 650 MG PO ×2 (08:32→17:55)
[2024-02-02] MEDS: Buprenorphine/Naloxone 8/2 mg FILM 1 FILM SUBLINGUAL ×2 (08:32→20:03)
[2024-02-02] MEDS: Divalproex Sodium 250 MG TABLET.DR PO ×3 (08:32→20:02)
[2024-02-02] MEDS: Nicotine Polacrilex 2 MG GUM 4 MG BUCCAL ×5 (08:32→20:02)
[2024-02-02] MEDS: risperiDONE 1 MG TABLET PO (08:32)
--- NOTE | 2024-02-02 09:00 | HO.PM.IMPN ---
Subjective Subjective Date of Service: 02/02/24 Interval History: no complaints Review of Systems Review of Systems: Yes all other systems are reviewed and are negative Physical Exam Vital Signs: Vital Signs: Last Vital Signs Temp 97.0 F 02/02/24 08:00 Pulse 77 02/02/24 08:00 Resp 18 02/02/24 08:00 BP 115/62 02/02/24 08:00 Pulse Ox 97 02/02/24 08:00 O2 Del Method Room Air 02/02/24 08:00 O2 Flow Rate 3 10/05/23 16:00 BMI result Body Mass Index 22.7 Gen: in no acute distress Lungs: normal efforts Neuro: alert, no weakness Psych: impaired insight Objective Data Active Medications Acetaminophen (Acetaminophen 325 Mg Tablet) 650 mg PO Q6H PRN PRN Reason: Pain, Mild (Pain Scale 1-3) Last Admin: 02/02/24 08:32 Dose: 650 mg Documented By: SILVESTRE Al Hydroxide/Mg Hydroxide (Magnesium Hydrox/Alum Hydrox 30 Ml Oral.Susp) 30 ml PO Q6H PRN PRN Reason: GI Upset Last Admin: 11/19/23 19:16 Dose: 30 ml Documented By: ODRISM Buprenorphine/Naloxone (Buprenorphine/Naloxone 8/2 Mg Film) 1 film SUBLINGUAL BID [facility] Last Admin: 02/02/24 08:32 Dose: 1 film Documented By: SILVESTRE Divalproex Sodium (Divalproex Sodium 250 Mg Tablet.Dr) 250 mg PO TID [facility] Last Admin: 02/02/24 08:32 Dose: 250 mg Documented By: SILVESTRE Lidocaine (Lidocaine 4 % Patch Adh..Patch) 1 patch TRANSDERMA DAILY [facility]; Protocol Last Admin: 02/02/24 08:31 Dose: 1 patch Documented By: SILVESTRE Nicotine Polacrilex (Nicotine Polacrilex 2 Mg Gum) 4 mg BUCCAL Q2H PRN PRN Reason: nicotine addiction Last Admin: 02/02/24 08:32 Dose: 4 mg Documented By: SILVESTRE Ondansetron HCl (Ondansetron Odt 4 Mg Tab.Rapdis) 4 mg TRANSLINGU Q6H PRN PRN Reason: Nausea and Vomiting Last Admin: 12/01/23 23:36 Dose: 4 mg Documented By: JOE Risperidone (Risperidone 1 Mg Tablet) 1 mg PO DAILY [facility] Last Admin: 02/02/24 08:32 Dose: 1 mg Documented By: SILVESTRE Risperidone (Risperidone 2 Mg Tablet) 2 mg PO BEDTIME [facility] Last Admin: 02/01/24 20:57 Dose: 2 mg Documented By: TANK Labs 01/25/24 05:51 01/25/24 05:51 Assessment and Plan (1) Alcoholic Korsakoff syndrome: Status: Acute (2) Opioid use disorder: Status: Acute Plan d122 48yo F with OUD on Suboxone, AUD with Korsakoff syndrome presented with confusion on 09/19/23, awaiting guardianship/LTC placement Korsakoff syndrome - continue quetiapine, valproate, risperidone as per Psychiatry consultation - lacks capacity to make informed medical decisions - no behavioral issues OUD - Suboxone tobacco abuse - NRT VTE ppx - ambulatory In my clinical judgment, the patient requires continued inpatient hospitalization for the following reasons: long-term care placement Total time managing care of this patient today: 25 minutes. Quality Stroke Does the patient have a stroke diagnosis?: No VTE Prior VTE?: No VTE Risk Level:: Medical - low VTE Device Contraindication: Treatment Not Indicated VTE Drug Contraindication: Treatment Not Indicated
[2024-02-02 20:00] VITALS: BP 110/62; PULSE 58; RESP 18; RESP 20; TEMP 36.1; O2SAT 96
[2024-02-02] MEDS: risperiDONE 2 MG TABLET PO (20:02)
[2024-02-02 23:41] VITALS: BP 97/52; PULSE 75; RESP 18; TEMP 36.2; O2SAT 97
[2024-02-03] MEDS: Nicotine Polacrilex 2 MG GUM 4 MG BUCCAL ×5 (00:36→19:35)
[2024-02-03] MEDS: Acetaminophen 325 MG TABLET 650 MG PO ×3 (00:37→19:35)
[2024-02-03 02:47] VITALS: BP 97/55; PULSE 71; RESP 18; TEMP 36.1; O2SAT 97
[2024-02-03 07:16] VITALS: BP 92/46; PULSE 67; RESP 16; TEMP 36.2; O2SAT 100
[2024-02-03] MEDS: Lidocaine 4 % Patch ADH..PATCH 1 PATCH TRANSDERMA (08:32)
[2024-02-03] MEDS: Buprenorphine/Naloxone 8/2 mg FILM 1 FILM SUBLINGUAL ×2 (08:32→20:21)
[2024-02-03] MEDS: Divalproex Sodium 250 MG TABLET.DR PO ×3 (08:32→20:21)
[2024-02-03] MEDS: risperiDONE 1 MG TABLET PO (08:32)
--- NOTE | 2024-02-03 11:25 | MHC.CM.PN ---
A message was received from Erik I-MD 01/31/24. He has not received insurance authorization yet. Two messages have been sent through [employer]. No response has been received. A VM was also left requesting a return call. CM will continue to follow.
--- NOTE | 2024-02-03 11:37 | HO.PM.IMPN ---
Subjective Subjective Date of Service: 02/03/24 Interval History: no new issues Review of Systems Review of Systems: Yes all other systems are reviewed and are negative Physical Exam Vital Signs: Vital Signs: Last Vital Signs Temp 97.1 F 02/03/24 07:16 Pulse 67 02/03/24 07:16 Resp 16 02/03/24 07:16 BP 92/46 L 02/03/24 07:16 Pulse Ox 100 02/03/24 07:16 O2 Del Method Room Air 02/03/24 07:16 O2 Flow Rate 3 10/05/23 16:00 BMI result Body Mass Index 22.7 Gen: in no acute distress Lungs: normal efforts Neuro: alert, no weakness Psych: impaired insight Objective Data Active Medications Acetaminophen (Acetaminophen 325 Mg Tablet) 650 mg PO Q6H PRN PRN Reason: Pain, Mild (Pain Scale 1-3) Last Admin: 02/03/24 10:29 Dose: 650 mg Documented By: JOSEPH Al Hydroxide/Mg Hydroxide (Magnesium Hydrox/Alum Hydrox 30 Ml Oral.Susp) 30 ml PO Q6H PRN PRN Reason: GI Upset Last Admin: 11/19/23 19:16 Dose: 30 ml Documented By: LAMIN Buprenorphine/Naloxone (Buprenorphine/Naloxone 8/2 Mg Film) 1 film SUBLINGUAL BID [facility] Last Admin: 02/03/24 08:32 Dose: 1 film Documented By: JOSEPH Divalproex Sodium (Divalproex Sodium 250 Mg Tablet.Dr) 250 mg PO TID [facility] Last Admin: 02/03/24 08:32 Dose: 250 mg Documented By: JOSEPH Lidocaine (Lidocaine 4 % Patch Adh..Patch) 1 patch TRANSDERMA DAILY [facility]; Protocol Last Admin: 02/03/24 08:32 Dose: 1 patch Documented By: JOSEPH Nicotine Polacrilex (Nicotine Polacrilex 2 Mg Gum) 4 mg BUCCAL Q2H PRN PRN Reason: nicotine addiction Last Admin: 02/03/24 08:32 Dose: 4 mg Documented By: JOSEPH Ondansetron HCl (Ondansetron Odt 4 Mg Tab.Rapdis) 4 mg TRANSLINGU Q6H PRN PRN Reason: Nausea and Vomiting Last Admin: 12/01/23 23:36 Dose: 4 mg Documented By: JOE Risperidone (Risperidone 1 Mg Tablet) 1 mg PO DAILY [facility] Last Admin: 02/03/24 08:32 Dose: 1 mg Documented By: JOSEPH Risperidone (Risperidone 2 Mg Tablet) 2 mg PO BEDTIME [facility] Last Admin: 02/02/24 20:02 Dose: 2 mg Documented By: TANK Labs 01/25/24 05:51 01/25/24 05:51 Assessment and Plan (1) Alcoholic Korsakoff syndrome: Status: Acute (2) Opioid use disorder: Status: Acute Plan d123 48yo F with OUD on Suboxone, AUD with Korsakoff syndrome presented with confusion on 09/19/23, awaiting guardianship/LTC placement Korsakoff syndrome - continue quetiapine, valproate, risperidone as per Psychiatry consultation - lacks capacity to make informed medical decisions - no behavioral issues OUD - Suboxone tobacco abuse - NRT VTE ppx - ambulatory In my clinical judgment, the patient requires continued inpatient hospitalization for the following reasons: long-term care placement Total time managing care of this patient today: 25 minutes. Quality Stroke Does the patient have a stroke diagnosis?: No VTE Prior VTE?: No VTE Risk Level:: Medical - low VTE Device Contraindication: Treatment Not Indicated VTE Drug Contraindication: Treatment Not Indicated
[2024-02-03 15:16] VITALS: BP 115/64; PULSE 82; RESP 16; TEMP 36.2; O2SAT 96
[2024-02-03 19:07] VITALS: BP 108/71; PULSE 79; RESP 18; TEMP 36.1; O2SAT 98
--- NOTE | 2024-02-03 19:20 | PC.NURSE ---
This RN assumed care at 1900, Pt AOx3, reporting 7/10 pain. Respirations even and unlabored, BSx4, no pain with palpation. Meds given per OCT. Pt is calm and cooperative no apparent distress.
[2024-02-03] MEDS: risperiDONE 2 MG TABLET PO (20:21)
[2024-02-04 04:00] VITALS: BP 111/61; PULSE 77; RESP 16; TEMP 36.3
[2024-02-04 07:21] VITALS: BP 103/57; PULSE 68; RESP 16; TEMP 36.3; O2SAT 95
[2024-02-04] MEDS: Buprenorphine/Naloxone 8/2 mg FILM 1 FILM SUBLINGUAL ×2 (08:28→21:15)
[2024-02-04] MEDS: Lidocaine 4 % Patch ADH..PATCH 1 PATCH TRANSDERMA (08:28)
[2024-02-04] MEDS: risperiDONE 1 MG TABLET PO (08:28)
[2024-02-04] MEDS: Divalproex Sodium 250 MG TABLET.DR PO ×3 (08:28→21:15)
[2024-02-04] MEDS: Nicotine Polacrilex 2 MG GUM 4 MG BUCCAL ×5 (08:28→20:03)
--- NOTE | 2024-02-04 09:52 | HO.PM.IMPN ---
Subjective Subjective Date of Service: 02/04/24 Interval History: no new issues Review of Systems Review of Systems: Yes all other systems are reviewed and are negative Physical Exam Vital Signs: Vital Signs: Last Vital Signs Temp 97.4 F 02/04/24 07:21 Pulse 68 02/04/24 07:21 Resp 16 02/04/24 07:21 BP 103/57 L 02/04/24 07:21 Pulse Ox 95 02/04/24 07:21 O2 Del Method Room Air 02/04/24 07:21 O2 Flow Rate 3 10/05/23 16:00 BMI result Body Mass Index 22.7 Gen: in no acute distress Lungs: normal efforts Neuro: alert, no weakness Psych: impaired insight Objective Data Active Medications Acetaminophen (Acetaminophen 325 Mg Tablet) 650 mg PO Q6H PRN PRN Reason: Pain, Mild (Pain Scale 1-3) Last Admin: 02/03/24 19:35 Dose: 650 mg Documented By: BRANDIN Al Hydroxide/Mg Hydroxide (Magnesium Hydrox/Alum Hydrox 30 Ml Oral.Susp) 30 ml PO Q6H PRN PRN Reason: GI Upset Last Admin: 11/19/23 19:16 Dose: 30 ml Documented By: LAMIN Buprenorphine/Naloxone (Buprenorphine/Naloxone 8/2 Mg Film) 1 film SUBLINGUAL BID [facility] Last Admin: 02/04/24 08:28 Dose: 1 film Documented By: JOSEPH Divalproex Sodium (Divalproex Sodium 250 Mg Tablet.Dr) 250 mg PO TID [facility] Last Admin: 02/04/24 08:28 Dose: 250 mg Documented By: JOSEPH Lidocaine (Lidocaine 4 % Patch Adh..Patch) 1 patch TRANSDERMA DAILY [facility]; Protocol Last Admin: 02/04/24 08:28 Dose: 1 patch Documented By: JOSEPH Nicotine Polacrilex (Nicotine Polacrilex 2 Mg Gum) 4 mg BUCCAL Q2H PRN PRN Reason: nicotine addiction Last Admin: 02/04/24 08:28 Dose: 4 mg Documented By: JOSEPH Ondansetron HCl (Ondansetron Odt 4 Mg Tab.Rapdis) 4 mg TRANSLINGU Q6H PRN PRN Reason: Nausea and Vomiting Last Admin: 12/01/23 23:36 Dose: 4 mg Documented By: JOE Risperidone (Risperidone 1 Mg Tablet) 1 mg PO DAILY [facility] Last Admin: 02/04/24 08:28 Dose: 1 mg Documented By: JOSEPH Risperidone (Risperidone 2 Mg Tablet) 2 mg PO BEDTIME [facility] Last Admin: 02/03/24 20:21 Dose: 2 mg Documented By: BRANDIN Labs 01/25/24 05:51 01/25/24 05:51 Assessment and Plan (1) Alcoholic Korsakoff syndrome: Status: Acute (2) Opioid use disorder: Status: Acute Plan d124 48yo F with OUD on Suboxone, AUD with Korsakoff syndrome presented with confusion on 09/19/23, awaiting guardianship/LTC placement Korsakoff syndrome - continue quetiapine, valproate, risperidone as per Psychiatry consultation - lacks capacity to make informed medical decisions - no behavioral issues OUD - Suboxone tobacco abuse - NRT VTE ppx - ambulatory In my clinical judgment, the patient requires continued inpatient hospitalization for the following reasons: long-term care placement Total time managing care of this patient today: 25 minutes. Quality Stroke Does the patient have a stroke diagnosis?: No VTE Prior VTE?: No VTE Risk Level:: Medical - low VTE Device Contraindication: Treatment Not Indicated VTE Drug Contraindication: Treatment Not Indicated
[2024-02-04 15:12] VITALS: BP 110/64; PULSE 79; RESP 18; TEMP 36.1; O2SAT 97
[2024-02-04] MEDS: risperiDONE 2 MG TABLET PO (21:15)
[2024-02-05] MEDS: Acetaminophen 325 MG TABLET 650 MG PO ×2 (03:21→20:05)
[2024-02-05] MEDS: Nicotine Polacrilex 2 MG GUM 4 MG BUCCAL ×5 (03:22→20:06)
[2024-02-05 04:00] VITALS: BP 108/59; PULSE 71; RESP 16; TEMP 36.8; O2SAT 97
[2024-02-05 07:27] VITALS: BP 112/59; PULSE 68; RESP 12; TEMP 36.3; O2SAT 96
[2024-02-05 07:33] VITALS: BP 104/67; PULSE 74; RESP 16; TEMP 36.6; O2SAT 95
[2024-02-05] MEDS: Buprenorphine/Naloxone 8/2 mg FILM 1 FILM SUBLINGUAL ×2 (07:58→20:06)
[2024-02-05] MEDS: risperiDONE 1 MG TABLET PO (07:58)
[2024-02-05] MEDS: Lidocaine 4 % Patch ADH..PATCH 1 PATCH TRANSDERMA (07:58)
[2024-02-05] MEDS: Divalproex Sodium 250 MG TABLET.DR PO ×3 (07:58→20:06)
--- NOTE | 2024-02-05 10:27 | MHC.CM.PN ---
Patient continues to await LTC placement. [facility] pending SCA w/ [facility]. CM Director following up w/ facility. CM will continue to follow.
--- NOTE | 2024-02-05 11:00 | HO.PM.IMPN ---
Subjective Subjective Date of Service: 02/05/24 Interval History: no new events Review of Systems Review of Systems: Yes all other systems are reviewed and are negative Physical Exam Vital Signs: Vital Signs: Last Vital Signs Temp 97.8 F 02/05/24 07:33 Pulse 74 02/05/24 07:33 Resp 16 02/05/24 07:33 BP 104/67 02/05/24 07:33 Pulse Ox 95 02/05/24 07:33 O2 Del Method Room Air 02/05/24 07:33 O2 Flow Rate 3 10/05/23 16:00 BMI result Body Mass Index 22.7 Gen: in no acute distress Lungs: normal efforts Neuro: alert, no weakness Psych: impaired insight Objective Data Active Medications Acetaminophen (Acetaminophen 325 Mg Tablet) 650 mg PO Q6H PRN PRN Reason: Pain, Mild (Pain Scale 1-3) Last Admin: 02/05/24 03:21 Dose: 650 mg Documented By: LUCIO Al Hydroxide/Mg Hydroxide (Magnesium Hydrox/Alum Hydrox 30 Ml Oral.Susp) 30 ml PO Q6H PRN PRN Reason: GI Upset Last Admin: 11/19/23 19:16 Dose: 30 ml Documented By: LAMIN Buprenorphine/Naloxone (Buprenorphine/Naloxone 8/2 Mg Film) 1 film SUBLINGUAL BID [facility] Last Admin: 02/05/24 07:58 Dose: 1 film Documented By: CHRISTOFER Divalproex Sodium (Divalproex Sodium 250 Mg Tablet.Dr) 250 mg PO TID [facility] Last Admin: 02/05/24 07:58 Dose: 250 mg Documented By: CHRISTOFER Lidocaine (Lidocaine 4 % Patch Adh..Patch) 1 patch TRANSDERMA DAILY [facility]; Protocol Last Admin: 02/05/24 07:58 Dose: 1 patch Documented By: CHRISTOFER Nicotine Polacrilex (Nicotine Polacrilex 2 Mg Gum) 4 mg BUCCAL Q2H PRN PRN Reason: nicotine addiction Last Admin: 02/05/24 07:58 Dose: 4 mg Documented By: CHRISTOFER Ondansetron HCl (Ondansetron Odt 4 Mg Tab.Rapdis) 4 mg TRANSLINGU Q6H PRN PRN Reason: Nausea and Vomiting Last Admin: 12/01/23 23:36 Dose: 4 mg Documented By: HO.CHOIP Risperidone (Risperidone 1 Mg Tablet) 1 mg PO DAILY [facility] Last Admin: 02/05/24 07:58 Dose: 1 mg Documented By: CHRISTOFER Risperidone (Risperidone 2 Mg Tablet) 2 mg PO BEDTIME [facility] Last Admin: 02/04/24 21:15 Dose: 2 mg Documented By: BRANDIN Labs 01/25/24 05:51 01/25/24 05:51 Assessment and Plan (1) Alcoholic Korsakoff syndrome: Status: Acute (2) Opioid use disorder: Status: Acute Plan d125 48yo F with OUD on Suboxone, AUD with Korsakoff syndrome presented with confusion on 09/19/23, awaiting guardianship/LTC placement Korsakoff syndrome - continue quetiapine, valproate, risperidone as per Psychiatry consultation - lacks capacity to make informed medical decisions - no behavioral issues OUD - Suboxone tobacco abuse - NRT VTE ppx - ambulatory In my clinical judgment, the patient requires continued inpatient hospitalization for the following reasons: long-term care placement Total time managing care of this patient today: 25 minutes. Quality Stroke Does the patient have a stroke diagnosis?: No VTE Prior VTE?: No VTE Risk Level:: Medical - low VTE Device Contraindication: Treatment Not Indicated VTE Drug Contraindication: Treatment Not Indicated
[2024-02-05 15:03] VITALS: BP 91/57; PULSE 76; RESP 12; TEMP 36.6; O2SAT 97
[2024-02-05 15:08] VITALS: BP 127/79; PULSE 83; RESP 16; TEMP 36.5; O2SAT 96
[2024-02-05] MEDS: risperiDONE 2 MG TABLET PO (20:06)
[2024-02-06 03:30] VITALS: BP 97/59; PULSE 65; RESP 16; TEMP 36.6; O2SAT 95
[2024-02-06 08:00] VITALS: BP 90/55; PULSE 69; RESP 12; TEMP 36.9; O2SAT 95
[2024-02-06] MEDS: Lidocaine 4 % Patch ADH..PATCH 1 PATCH TRANSDERMA (08:37)
[2024-02-06] MEDS: Divalproex Sodium 250 MG TABLET.DR PO ×3 (08:38→20:04)
[2024-02-06] MEDS: Nicotine Polacrilex 2 MG GUM 4 MG BUCCAL ×7 (08:38→22:08)
[2024-02-06] MEDS: Acetaminophen 325 MG TABLET 650 MG PO ×3 (08:38→20:04)
[2024-02-06] MEDS: Buprenorphine/Naloxone 8/2 mg FILM 1 FILM SUBLINGUAL ×2 (08:38→20:04)
[2024-02-06] MEDS: risperiDONE 1 MG TABLET PO (08:38)
--- NOTE | 2024-02-06 10:19 | P.PNIM_ITS ---
Subjective Subjective Date of Service: 02/06/24 Interval History: no new issues Review of Systems Review of Systems: Yes all other systems are reviewed and are negative Physical Exam 2 Vital Signs: Vital Signs: Last Vital Signs Temp 98.4 F 02/06/24 08:00 Pulse 69 02/06/24 08:00 Resp 12 02/06/24 08:00 BP 90/55 L 02/06/24 08:00 Pulse Ox 95 02/06/24 08:00 O2 Del Method Room Air 02/06/24 08:00 O2 Flow Rate 3 10/05/23 16:00 BMI result Body Mass Index 22.7 Gen: in no acute distress Lungs: normal efforts Neuro: alert, no weakness Psych: impaired insight Objective Data Active Medications Acetaminophen (Acetaminophen 325 Mg Tablet) 650 mg PO Q6H PRN PRN Reason: Pain, Mild (Pain Scale 1-3) Last Admin: 02/06/24 08:38 Dose: 650 mg Documented By: SILVESTRE Al Hydroxide/Mg Hydroxide (Magnesium Hydrox/Alum Hydrox 30 Ml Oral.Susp) 30 ml PO Q6H PRN PRN Reason: GI Upset Last Admin: 11/19/23 19:16 Dose: 30 ml Documented By: LARISBaldo Buprenorphine/Naloxone (Buprenorphine/Naloxone 8/2 Mg Film) 1 film SUBLINGUAL BID [facility] Last Admin: 02/06/24 08:38 Dose: 1 film Documented By: SILVESTRE Divalproex Sodium (Divalproex Sodium 250 Mg Tablet.Dr) 250 mg PO TID [facility] Last Admin: 02/06/24 08:38 Dose: 250 mg Documented By: SILVESTRE Lidocaine (Lidocaine 4 % Patch Adh..Patch) 1 patch TRANSDERMA DAILY [facility]; Protocol Last Admin: 02/06/24 08:37 Dose: 1 patch Documented By: SILVESTRE Nicotine Polacrilex (Nicotine Polacrilex 2 Mg Gum) 4 mg BUCCAL Q2H PRN PRN Reason: nicotine addiction Last Admin: 02/06/24 08:38 Dose: 4 mg Documented By: SILVESTRE Ondansetron HCl (Ondansetron Odt 4 Mg Tab.Rapdis) 4 mg TRANSLINGU Q6H PRN PRN Reason: Nausea and Vomiting Last Admin: 12/01/23 23:36 Dose: 4 mg Documented By: JOE Risperidone (Risperidone 1 Mg Tablet) 1 mg PO DAILY [facility] Last Admin: 02/06/24 08:38 Dose: 1 mg Documented By: SILVESTRE Risperidone (Risperidone 2 Mg Tablet) 2 mg PO BEDTIME [facility] Last Admin: 02/05/24 20:06 Dose: 2 mg Documented By: BELLA Labs 01/25/24 05:51 01/25/24 05:51 Assessment and Plan (1) Alcoholic Korsakoff syndrome: Status: Acute (2) Opioid use disorder: Status: Acute Plan d126 48yo F with OUD on Suboxone, AUD with Korsakoff syndrome presented with confusion on 09/19/23, awaiting guardianship/LTC placement Korsakoff syndrome - continue quetiapine, valproate, risperidone as per Psychiatry consultation - lacks capacity to make informed medical decisions - no behavioral issues OUD - Suboxone tobacco abuse - NRT VTE ppx - ambulatory In my clinical judgment, the patient requires continued inpatient hospitalization for the following reasons: long-term care placement Total time managing care of this patient today: 25 minutes. Quality Stroke Does the patient have a stroke diagnosis?: No VTE Prior VTE?: No VTE Risk Level:: Medical - low VTE Device Contraindication: Treatment Not Indicated VTE Drug Contraindication: Treatment Not Indicated
[2024-02-06 15:38] VITALS: BP 108/68; PULSE 79; RESP 18; TEMP 36.8; O2SAT 97
[2024-02-06 19:05] VITALS: BP 107/64; PULSE 78; RESP 18; TEMP 36.1; O2SAT 97
[2024-02-06] MEDS: risperiDONE 2 MG TABLET PO (20:04)
[2024-02-06 23:41] VITALS: BP 110/55; PULSE 70; RESP 16; TEMP 36.1; O2SAT 98
[2024-02-07] MEDS: Nicotine Polacrilex 2 MG GUM 4 MG BUCCAL ×7 (00:14→20:24)
[2024-02-07 07:20] VITALS: BP 90/53; PULSE 70; TEMP 36.8; O2SAT 95
[2024-02-07] MEDS: Lidocaine 4 % Patch ADH..PATCH 1 PATCH TRANSDERMA (09:04)
[2024-02-07] MEDS: risperiDONE 1 MG TABLET PO (09:05)
[2024-02-07] MEDS: Buprenorphine/Naloxone 8/2 mg FILM 1 FILM SUBLINGUAL ×2 (09:05→20:23)
[2024-02-07] MEDS: Divalproex Sodium 250 MG TABLET.DR PO ×3 (09:05→20:23)
[2024-02-07] MEDS: Acetaminophen 325 MG TABLET 650 MG PO ×3 (09:05→20:24)
--- NOTE | 2024-02-07 09:29 | HO.PM.IMPN ---
Subjective Subjective Date of Service: 02/07/24 Interval History: no new events Review of Systems Review of Systems: Yes all other systems are reviewed and are negative Physical Exam Vital Signs: Vital Signs: Last Vital Signs Temp 98.2 F 02/07/24 07:20 Pulse 70 02/07/24 07:20 Resp 16 02/06/24 23:41 BP 90/53 L 02/07/24 07:20 Pulse Ox 95 02/07/24 07:20 O2 Del Method Room Air 02/07/24 07:20 O2 Flow Rate 3 10/05/23 16:00 BMI result Body Mass Index 22.7 Gen: in no acute distress Lungs: normal efforts Neuro: alert, no weakness Psych: impaired insight Objective Data Active Medications Acetaminophen (Acetaminophen 325 Mg Tablet) 650 mg PO Q6H PRN PRN Reason: Pain, Mild (Pain Scale 1-3) Last Admin: 02/07/24 09:05 Dose: 650 mg Documented By: SILVESTRE Al Hydroxide/Mg Hydroxide (Magnesium Hydrox/Alum Hydrox 30 Ml Oral.Susp) 30 ml PO Q6H PRN PRN Reason: GI Upset Last Admin: 11/19/23 19:16 Dose: 30 ml Documented By: LARISBaldo Buprenorphine/Naloxone (Buprenorphine/Naloxone 8/2 Mg Film) 1 film SUBLINGUAL BID [facility] Last Admin: 02/07/24 09:05 Dose: 1 film Documented By: SILVESTRE Divalproex Sodium (Divalproex Sodium 250 Mg Tablet.Dr) 250 mg PO TID [facility] Last Admin: 02/07/24 09:05 Dose: 250 mg Documented By: SILVESTRE Lidocaine (Lidocaine 4 % Patch Adh..Patch) 1 patch TRANSDERMA DAILY [facility]; Protocol Last Admin: 02/07/24 09:04 Dose: 1 patch Documented By: SILVESTRE Nicotine Polacrilex (Nicotine Polacrilex 2 Mg Gum) 4 mg BUCCAL Q2H PRN PRN Reason: nicotine addiction Last Admin: 02/07/24 09:05 Dose: 4 mg Documented By: SILVESTRE Ondansetron HCl (Ondansetron Odt 4 Mg Tab.Rapdis) 4 mg TRANSLINGU Q6H PRN PRN Reason: Nausea and Vomiting Last Admin: 12/01/23 23:36 Dose: 4 mg Documented By: HO.CHOIP Risperidone (Risperidone 1 Mg Tablet) 1 mg PO DAILY [facility] Last Admin: 02/07/24 09:05 Dose: 1 mg Documented By: SILVESTRE Risperidone (Risperidone 2 Mg Tablet) 2 mg PO BEDTIME [facility] Last Admin: 02/06/24 20:04 Dose: 2 mg Documented By: BELLA Labs 01/25/24 05:51 01/25/24 05:51 Assessment and Plan (1) Alcoholic Korsakoff syndrome: Status: Acute (2) Opioid use disorder: Status: Acute Plan d127 48yo F with OUD on Suboxone, AUD with Korsakoff syndrome presented with confusion on 09/19/23, awaiting guardianship/LTC placement Korsakoff syndrome - continue quetiapine, valproate, risperidone as per Psychiatry consultation - lacks capacity to make informed medical decisions - no behavioral issues OUD - Suboxone tobacco abuse - NRT VTE ppx - ambulatory In my clinical judgment, the patient requires continued inpatient hospitalization for the following reasons: long-term care placement Total time managing care of this patient today: 25 minutes. Quality Stroke Does the patient have a stroke diagnosis?: No VTE Prior VTE?: No VTE Risk Level:: Medical - low VTE Device Contraindication: Treatment Not Indicated VTE Drug Contraindication: Treatment Not Indicated
--- NOTE | 2024-02-07 12:10 | MHC.CM.PN ---
Patient continues to await admission to [facility] for LTC. CM and CM director spoke with cyber systems administrator, who continues to work w/ [facility] on a rate change. CM will continue to follow.
[2024-02-07 15:03] VITALS: BP 136/70; PULSE 76; RESP 18; TEMP 36.6; O2SAT 97
[2024-02-07 19:53] VITALS: BP 110/66; PULSE 80; RESP 16; TEMP 36.6; O2SAT 95
[2024-02-07] MEDS: risperiDONE 2 MG TABLET PO (20:23)
[2024-02-08 03:53] VITALS: BP 114/60; PULSE 70; RESP 16; TEMP 36.6; O2SAT 95
[2024-02-08 07:27] VITALS: BP 99/55; PULSE 76; RESP 16; TEMP 36.4; O2SAT 96
[2024-02-08] MEDS: Nicotine Polacrilex 2 MG GUM 4 MG BUCCAL ×7 (07:35→23:11)
[2024-02-08] MEDS: Buprenorphine/Naloxone 8/2 mg FILM 1 FILM SUBLINGUAL ×2 (08:40→20:54)
[2024-02-08] MEDS: risperiDONE 1 MG TABLET PO (08:40)
[2024-02-08] MEDS: Divalproex Sodium 250 MG TABLET.DR PO ×3 (08:40→19:57)
[2024-02-08] MEDS: Lidocaine 4 % Patch ADH..PATCH 1 PATCH TRANSDERMA (08:40)
[2024-02-08] MEDS: Acetaminophen 325 MG TABLET 650 MG PO ×2 (09:35→19:56)
--- NOTE | 2024-02-08 10:00 | HO.PM.IMPN ---
Subjective Subjective Date of Service: 02/08/24 Interval History: no complaints Review of Systems Review of Systems: Yes all other systems are reviewed and are negative Physical Exam Vital Signs: Vital Signs: Last Vital Signs Temp 97.5 F 02/08/24 07:27 Pulse 76 02/08/24 07:27 Resp 16 02/08/24 07:27 BP 99/55 L 02/08/24 07:27 Pulse Ox 96 02/08/24 07:27 O2 Del Method Room Air 02/08/24 07:27 O2 Flow Rate 3 10/05/23 16:00 BMI result Body Mass Index 22.7 Gen: in no acute distress Lungs: normal efforts Neuro: alert, no weakness, ambulatory Psych: impaired insight Objective Data Active Medications Acetaminophen (Acetaminophen 325 Mg Tablet) 650 mg PO Q6H PRN PRN Reason: Pain, Mild (Pain Scale 1-3) Last Admin: 02/08/24 09:35 Dose: 650 mg Documented By: JOSEPH Al Hydroxide/Mg Hydroxide (Magnesium Hydrox/Alum Hydrox 30 Ml Oral.Susp) 30 ml PO Q6H PRN PRN Reason: GI Upset Last Admin: 11/19/23 19:16 Dose: 30 ml Documented By: LAMIN Buprenorphine/Naloxone (Buprenorphine/Naloxone 8/2 Mg Film) 1 film SUBLINGUAL BID [facility] Last Admin: 02/08/24 08:40 Dose: 1 film Documented By: JOSEPH Divalproex Sodium (Divalproex Sodium 250 Mg Tablet.Dr) 250 mg PO TID [facility] Last Admin: 02/08/24 08:40 Dose: 250 mg Documented By: JOSEPH Lidocaine (Lidocaine 4 % Patch Adh..Patch) 1 patch TRANSDERMA DAILY [facility]; Protocol Last Admin: 02/08/24 08:40 Dose: 1 patch Documented By: JOSEPH Nicotine Polacrilex (Nicotine Polacrilex 2 Mg Gum) 4 mg BUCCAL Q2H PRN PRN Reason: nicotine addiction Last Admin: 02/08/24 09:35 Dose: 4 mg Documented By: JOSEPH Ondansetron HCl (Ondansetron Odt 4 Mg Tab.Rapdis) 4 mg TRANSLINGU Q6H PRN PRN Reason: Nausea and Vomiting Last Admin: 12/01/23 23:36 Dose: 4 mg Documented By: JOE Risperidone (Risperidone 1 Mg Tablet) 1 mg PO DAILY [facility] Last Admin: 02/08/24 08:40 Dose: 1 mg Documented By: JOSEPH Risperidone (Risperidone 2 Mg Tablet) 2 mg PO BEDTIME [facility] Last Admin: 02/07/24 20:23 Dose: 2 mg Documented By: BELLA Labs 01/25/24 05:51 01/25/24 05:51 Assessment and Plan (1) Alcoholic Korsakoff syndrome: Status: Acute (2) Opioid use disorder: Status: Acute Plan d128 48yo F with OUD on Suboxone, AUD with Korsakoff syndrome presented with confusion on 09/19/23, awaiting guardianship/LTC placement Korsakoff syndrome - continue quetiapine, valproate, risperidone as per Psychiatry consultation - lacks capacity to make informed medical decisions - no behavioral issues OUD - Suboxone tobacco abuse - NRT VTE ppx - ambulatory In my clinical judgment, the patient requires continued inpatient hospitalization for the following reasons: long-term care placement Total time managing care of this patient today: 25 minutes. Quality Stroke Does the patient have a stroke diagnosis?: No VTE Prior VTE?: No VTE Risk Level:: Medical - low VTE Device Contraindication: Treatment Not Indicated VTE Drug Contraindication: Treatment Not Indicated
[2024-02-08 15:20] VITALS: BP 122/67; PULSE 61; RESP 16; TEMP 36; O2SAT 97
[2024-02-08 18:47] VITALS: BP 114/66; PULSE 70; RESP 16; TEMP 36.4; O2SAT 96
[2024-02-08] MEDS: risperiDONE 2 MG TABLET PO (19:57)
[2024-02-09 00:06] VITALS: BP 118/62; PULSE 79; RESP 18; TEMP 36.2; O2SAT 96
[2024-02-09] MEDS: Nicotine Polacrilex 2 MG GUM 4 MG BUCCAL ×6 (04:36→20:02)
--- NOTE | 2024-02-09 05:58 | PC.NURSE ---
Patient rested well with no s/sx resp distress. vss, oxygen at 2 liters n/c, repositioned, foam dressing at coccyx, purewick in use, urine output 300ml. no complaints of pain or discomforts between 3994-1074. Pt monitored frequently, call noriega w/i reach. Right foot 2nd and 3rd toe noted with bruising and scabbing.
[2024-02-09 07:02] VITALS: BP 109/61; PULSE 65; RESP 16; TEMP 36.8; O2SAT 98
[2024-02-09] MEDS: Buprenorphine/Naloxone 8/2 mg FILM 1 FILM SUBLINGUAL ×2 (07:32→20:03)
[2024-02-09] MEDS: Lidocaine 4 % Patch ADH..PATCH 1 PATCH TRANSDERMA (07:33)
[2024-02-09] MEDS: Divalproex Sodium 250 MG TABLET.DR PO ×3 (07:33→20:02)
[2024-02-09] MEDS: risperiDONE 1 MG TABLET PO (07:33)
--- NOTE | 2024-02-09 09:31 | P.PNIM_ITS ---
Subjective Subjective Date of Service: 02/09/24 Interval History: no complaints; no new issues Review of Systems Review of Systems: Yes all other systems are reviewed and are negative Physical Exam 2 Vital Signs: Vital Signs: Last Vital Signs Temp 98.3 F 02/09/24 07:02 Pulse 65 02/09/24 07:02 Resp 16 02/09/24 07:02 BP 109/61 02/09/24 07:02 Pulse Ox 98 02/09/24 07:02 O2 Del Method Room Air 02/09/24 07:02 O2 Flow Rate 3 10/05/23 16:00 BMI result Body Mass Index 22.7 Gen: in no acute distress Lungs: normal efforts Neuro: alert, no weakness, ambulatory Psych: impaired insight Objective Data Active Medications Acetaminophen (Acetaminophen 325 Mg Tablet) 650 mg PO Q6H PRN PRN Reason: Pain, Mild (Pain Scale 1-3) Last Admin: 02/08/24 19:56 Dose: 650 mg Documented By: LUCIO Al Hydroxide/Mg Hydroxide (Magnesium Hydrox/Alum Hydrox 30 Ml Oral.Susp) 30 ml PO Q6H PRN PRN Reason: GI Upset Last Admin: 11/19/23 19:16 Dose: 30 ml Documented By: LAMIN Buprenorphine/Naloxone (Buprenorphine/Naloxone 8/2 Mg Film) 1 film SUBLINGUAL BID [facility] Last Admin: 02/09/24 07:32 Dose: 1 film Documented By: TREMAINE Divalproex Sodium (Divalproex Sodium 250 Mg Tablet.Dr) 250 mg PO TID [facility] Last Admin: 02/09/24 07:33 Dose: 250 mg Documented By: TREMAINE Lidocaine (Lidocaine 4 % Patch Adh..Patch) 1 patch TRANSDERMA DAILY [facility]; Protocol Last Admin: 02/09/24 07:33 Dose: 1 patch Documented By: TREMAINE Nicotine Polacrilex (Nicotine Polacrilex 2 Mg Gum) 4 mg BUCCAL Q2H PRN PRN Reason: nicotine addiction Last Admin: 02/09/24 07:33 Dose: 4 mg Documented By: TREMAINE Ondansetron HCl (Ondansetron Odt 4 Mg Tab.Rapdis) 4 mg TRANSLINGU Q6H PRN PRN Reason: Nausea and Vomiting Last Admin: 12/01/23 23:36 Dose: 4 mg Documented By: JOE Risperidone (Risperidone 1 Mg Tablet) 1 mg PO DAILY [facility] Last Admin: 02/09/24 07:33 Dose: 1 mg Documented By: TREMAINE Risperidone (Risperidone 2 Mg Tablet) 2 mg PO BEDTIME [facility] Last Admin: 02/08/24 19:57 Dose: 2 mg Documented By: ZACHQC Labs 01/25/24 05:51 01/25/24 05:51 Assessment and Plan (1) Alcoholic Korsakoff syndrome: Status: Acute (2) Opioid use disorder: Status: Acute Plan d129 48yo F with OUD on Suboxone, AUD with Korsakoff syndrome presented with confusion on 09/19/23, awaiting guardianship/LTC placement Korsakoff syndrome - continue quetiapine, valproate, risperidone as per Psychiatry consultation - lacks capacity to make informed medical decisions - no behavioral issues OUD - Suboxone tobacco abuse - NRT VTE ppx - ambulatory In my clinical judgment, the patient requires continued inpatient hospitalization for the following reasons: long-term care placement Total time managing care of this patient today: 25 minutes. Quality Stroke Does the patient have a stroke diagnosis?: No VTE Prior VTE?: No VTE Risk Level:: Medical - low VTE Device Contraindication: Treatment Not Indicated VTE Drug Contraindication: Treatment Not Indicated
[2024-02-09 15:24] VITALS: BP 109/60; PULSE 73; RESP 18; TEMP 36.5; O2SAT 97
[2024-02-09 20:00] VITALS: BP 100/56; PULSE 75; RESP 20; TEMP 36.2; O2SAT 96
[2024-02-09] MEDS: Acetaminophen 325 MG TABLET 650 MG PO (20:02)
[2024-02-09] MEDS: risperiDONE 2 MG TABLET PO (20:03)
[2024-02-10 03:44] VITALS: BP 130/75; PULSE 75; RESP 20; TEMP 36.7; O2SAT 97
[2024-02-10 07:47] VITALS: BP 107/60; PULSE 67; RESP 13; TEMP 36.1; O2SAT 96
[2024-02-10 08:00] VITALS: BP 107/57; RESP 13; TEMP 36.1; O2SAT 96
[2024-02-10] MEDS: risperiDONE 1 MG TABLET PO (08:54)
[2024-02-10] MEDS: Lidocaine 4 % Patch ADH..PATCH 1 PATCH TRANSDERMA (08:54)
[2024-02-10] MEDS: Buprenorphine/Naloxone 8/2 mg FILM 1 FILM SUBLINGUAL ×2 (08:54→19:58)
[2024-02-10] MEDS: Divalproex Sodium 250 MG TABLET.DR PO ×3 (08:54→19:58)
[2024-02-10] MEDS: Nicotine Polacrilex 2 MG GUM 4 MG BUCCAL ×5 (09:02→19:57)
--- NOTE | 2024-02-10 10:35 | P.PNIM_ITS ---
Subjective Subjective Date of Service: 02/10/24 Interval History: no complaints; no new issues Review of Systems Review of Systems: Yes all other systems are reviewed and are negative Physical Exam 2 Vital Signs: Vital Signs: Last Vital Signs Temp 96.9 F 02/10/24 08:00 Pulse 67 02/10/24 07:47 Resp 13 02/10/24 08:00 BP 107/57 L 02/10/24 08:00 Pulse Ox 96 02/10/24 08:00 O2 Del Method Room Air 02/10/24 08:00 O2 Flow Rate 3 10/05/23 16:00 BMI result Body Mass Index 22.7 Gen: in no acute distress Lungs: normal efforts Neuro: alert, no weakness, ambulatory Psych: impaired insight Objective Data Active Medications Acetaminophen (Acetaminophen 325 Mg Tablet) 650 mg PO Q6H PRN PRN Reason: Pain, Mild (Pain Scale 1-3) Last Admin: 02/09/24 20:02 Dose: 650 mg Documented By: PIPE Al Hydroxide/Mg Hydroxide (Magnesium Hydrox/Alum Hydrox 30 Ml Oral.Susp) 30 ml PO Q6H PRN PRN Reason: GI Upset Last Admin: 11/19/23 19:16 Dose: 30 ml Documented By: LAMIN Buprenorphine/Naloxone (Buprenorphine/Naloxone 8/2 Mg Film) 1 film SUBLINGUAL BID [facility] Last Admin: 02/10/24 08:54 Dose: 1 film Documented By: REE Divalproex Sodium (Divalproex Sodium 250 Mg Tablet.Dr) 250 mg PO TID [facility] Last Admin: 02/10/24 08:54 Dose: 250 mg Documented By: REE Lidocaine (Lidocaine 4 % Patch Adh..Patch) 1 patch TRANSDERMA DAILY [facility]; Protocol Last Admin: 02/10/24 08:54 Dose: 1 patch Documented By: REE Nicotine Polacrilex (Nicotine Polacrilex 2 Mg Gum) 4 mg BUCCAL Q2H PRN PRN Reason: nicotine addiction Last Admin: 02/10/24 09:02 Dose: 4 mg Documented By: REE Ondansetron HCl (Ondansetron Odt 4 Mg Tab.Rapdis) 4 mg TRANSLINGU Q6H PRN PRN Reason: Nausea and Vomiting Last Admin: 12/01/23 23:36 Dose: 4 mg Documented By: JOE Risperidone (Risperidone 1 Mg Tablet) 1 mg PO DAILY [facility] Last Admin: 02/10/24 08:54 Dose: 1 mg Documented By: REE Risperidone (Risperidone 2 Mg Tablet) 2 mg PO BEDTIME [facility] Last Admin: 02/09/24 20:03 Dose: 2 mg Documented By: PIPE Labs 01/25/24 05:51 01/25/24 05:51 Assessment and Plan (1) Alcoholic Korsakoff syndrome: Status: Acute (2) Opioid use disorder: Status: Acute Plan d130 48yo F with OUD on Suboxone, AUD with Korsakoff syndrome presented with confusion on 09/19/23, awaiting guardianship/LTC placement Korsakoff syndrome - continue quetiapine, valproate, risperidone as per Psychiatry consultation - lacks capacity to make informed medical decisions - no behavioral issues OUD - Suboxone tobacco abuse - NRT VTE ppx - ambulatory In my clinical judgment, the patient requires continued inpatient hospitalization for the following reasons: long-term care placement Total time managing care of this patient today: 25 minutes. Quality Stroke Does the patient have a stroke diagnosis?: No VTE Prior VTE?: No VTE Risk Level:: Medical - low VTE Device Contraindication: Treatment Not Indicated VTE Drug Contraindication: Treatment Not Indicated
--- NOTE | 2024-02-10 11:16 | MHC.CM.PN ---
Addendum entered by Jihan Butler RN 02/10/24 12:05: [facility] fax # [phone] Addendum entered by Jihan Butler RN 02/10/24 12:02: CM placed additional referral to [facility]. Awaiting response. Also followed up on referral to [facility]. Per [place] in admissions, no open bed and their doctors will not review referral until bed is available, so unable to confirm that patient is clinically appropriate. [place] suggests that CM sends periodic updates. Original Note: EMR reviewed. [facility] continues to negotiate rate w/ [facility]. Per liaison, no resolution at this time. CM will continue to follow.
[2024-02-10 15:39] VITALS: BP 103/58; PULSE 75; RESP 18; TEMP 36.3; O2SAT 100
[2024-02-10] MEDS: Acetaminophen 325 MG TABLET 650 MG PO (17:50)
[2024-02-10 19:17] VITALS: BP 102/59; PULSE 73; RESP 18; TEMP 36.3; O2SAT 96
[2024-02-10] MEDS: risperiDONE 2 MG TABLET PO (19:58)
[2024-02-11] MEDS: Nicotine Polacrilex 2 MG GUM 4 MG BUCCAL ×6 (03:25→20:31)
[2024-02-11 03:31] VITALS: BP 115/61; PULSE 71; RESP 19; TEMP 36.6; O2SAT 97
[2024-02-11] MEDS: Acetaminophen 325 MG TABLET 650 MG PO ×3 (05:07→18:02)
[2024-02-11 07:25] VITALS: BP 105/59; PULSE 63; RESP 16; TEMP 36.2; O2SAT 95
[2024-02-11] MEDS: Divalproex Sodium 250 MG TABLET.DR PO ×3 (08:34→20:31)
[2024-02-11] MEDS: risperiDONE 1 MG TABLET PO (08:34)
[2024-02-11] MEDS: Lidocaine 4 % Patch ADH..PATCH 1 PATCH TRANSDERMA (08:34)
[2024-02-11] MEDS: Buprenorphine/Naloxone 8/2 mg FILM 1 FILM SUBLINGUAL ×2 (08:34→20:31)
--- NOTE | 2024-02-11 08:51 | P.PNIM_ITS ---
Subjective Subjective Date of Service: 02/11/24 Interval History: no complaints; no new issues Review of Systems Review of Systems: Yes all other systems are reviewed and are negative Physical Exam 2 Vital Signs: Vital Signs: Last Vital Signs Temp 97.2 F 02/11/24 07:25 Pulse 63 02/11/24 07:25 Resp 16 02/11/24 07:25 BP 105/59 L 02/11/24 07:25 Pulse Ox 95 02/11/24 07:25 O2 Del Method Room Air 02/11/24 07:25 O2 Flow Rate 3 10/05/23 16:00 BMI result Body Mass Index 22.7 Gen: in no acute distress Lungs: normal efforts Neuro: alert, no weakness, ambulatory Psych: impaired insight Objective Data Active Medications Acetaminophen (Acetaminophen 325 Mg Tablet) 650 mg PO Q6H PRN PRN Reason: Pain, Mild (Pain Scale 1-3) Last Admin: 02/11/24 05:07 Dose: 650 mg Documented By: ISABELLA Al Hydroxide/Mg Hydroxide (Magnesium Hydrox/Alum Hydrox 30 Ml Oral.Susp) 30 ml PO Q6H PRN PRN Reason: GI Upset Last Admin: 11/19/23 19:16 Dose: 30 ml Documented By: LAMIN Buprenorphine/Naloxone (Buprenorphine/Naloxone 8/2 Mg Film) 1 film SUBLINGUAL BID [facility] Last Admin: 02/11/24 08:34 Dose: 1 film Documented By: REE Divalproex Sodium (Divalproex Sodium 250 Mg Tablet.Dr) 250 mg PO TID [facility] Last Admin: 02/11/24 08:34 Dose: 250 mg Documented By: REE Lidocaine (Lidocaine 4 % Patch Adh..Patch) 1 patch TRANSDERMA DAILY [facility]; Protocol Last Admin: 02/11/24 08:34 Dose: 1 patch Documented By: REE Nicotine Polacrilex (Nicotine Polacrilex 2 Mg Gum) 4 mg BUCCAL Q2H PRN PRN Reason: nicotine addiction Last Admin: 02/11/24 03:25 Dose: 4 mg Documented By: ISABELLA Ondansetron HCl (Ondansetron Odt 4 Mg Tab.Rapdis) 4 mg TRANSLINGU Q6H PRN PRN Reason: Nausea and Vomiting Last Admin: 12/01/23 23:36 Dose: 4 mg Documented By: JOE Risperidone (Risperidone 1 Mg Tablet) 1 mg PO DAILY [facility] Last Admin: 02/11/24 08:34 Dose: 1 mg Documented By: REE Risperidone (Risperidone 2 Mg Tablet) 2 mg PO BEDTIME [facility] Last Admin: 02/10/24 19:58 Dose: 2 mg Documented By: ISABELLA Labs 01/25/24 05:51 01/25/24 05:51 Assessment and Plan (1) Alcoholic Korsakoff syndrome: Status: Acute (2) Opioid use disorder: Status: Acute Plan d130 48yo F with OUD on Suboxone, AUD with Korsakoff syndrome presented with confusion on 09/19/23, awaiting guardianship/LTC placement Korsakoff syndrome - continue quetiapine, valproate, risperidone as per Psychiatry consultation - lacks capacity to make informed medical decisions - no behavioral issues OUD - Suboxone tobacco abuse - NRT VTE ppx - ambulatory In my clinical judgment, the patient requires continued inpatient hospitalization for the following reasons: long-term care placement Total time managing care of this patient today: 25 minutes. Quality Stroke Does the patient have a stroke diagnosis?: No VTE Prior VTE?: No VTE Risk Level:: Medical - low VTE Device Contraindication: Treatment Not Indicated VTE Drug Contraindication: Treatment Not Indicated
[2024-02-11 15:02] VITALS: BP 104/56; PULSE 81; RESP 16; TEMP 36.6; O2SAT 97
[2024-02-11 20:00] VITALS: BP 116/63; PULSE 77; RESP 18; TEMP 36.4; O2SAT 97
[2024-02-11] MEDS: risperiDONE 2 MG TABLET PO (20:31)
[2024-02-12] MEDS: Nicotine Polacrilex 2 MG GUM 4 MG BUCCAL ×10 (00:03→23:10)
[2024-02-12] MEDS: Acetaminophen 325 MG TABLET 650 MG PO ×4 (00:03→21:16)
[2024-02-12 02:59] VITALS: BP 125/66; PULSE 71; RESP 16; TEMP 36.1; O2SAT 96
[2024-02-12 07:31] VITALS: BP 96/59; PULSE 78; RESP 16; TEMP 36.3; O2SAT 93
[2024-02-12] MEDS: risperiDONE 1 MG TABLET PO (08:39)
[2024-02-12] MEDS: Lidocaine 4 % Patch ADH..PATCH 1 PATCH TRANSDERMA (08:39)
[2024-02-12] MEDS: Buprenorphine/Naloxone 8/2 mg FILM 1 FILM SUBLINGUAL ×2 (08:39→19:22)
[2024-02-12] MEDS: Divalproex Sodium 250 MG TABLET.DR PO ×3 (08:39→19:22)
--- NOTE | 2024-02-12 09:10 | HO.PM.IMPN ---
Subjective Subjective Date of Service: 02/12/24 Interval History: no complaints; no new issues Review of Systems Review of Systems: Yes all other systems are reviewed and are negative Physical Exam Vital Signs: Vital Signs: Last Vital Signs Temp 97.4 F 02/12/24 07:31 Pulse 78 02/12/24 07:31 Resp 16 02/12/24 07:31 BP 96/59 L 02/12/24 07:31 Pulse Ox 93 02/12/24 07:31 O2 Del Method Room Air 02/12/24 07:31 O2 Flow Rate 3 10/05/23 16:00 BMI result Body Mass Index 22.7 Gen: in no acute distress Lungs: normal efforts Neuro: alert, no weakness, ambulatory Psych: impaired insight Objective Data Active Medications Acetaminophen (Acetaminophen 325 Mg Tablet) 650 mg PO Q6H PRN PRN Reason: Pain, Mild (Pain Scale 1-3) Last Admin: 02/12/24 00:03 Dose: 650 mg Documented By: AMILCAR Al Hydroxide/Mg Hydroxide (Magnesium Hydrox/Alum Hydrox 30 Ml Oral.Susp) 30 ml PO Q6H PRN PRN Reason: GI Upset Last Admin: 11/19/23 19:16 Dose: 30 ml Documented By: LAMIN Buprenorphine/Naloxone (Buprenorphine/Naloxone 8/2 Mg Film) 1 film SUBLINGUAL BID [facility] Last Admin: 02/12/24 08:39 Dose: 1 film Documented By: SANTIAGO Divalproex Sodium (Divalproex Sodium 250 Mg Tablet.Dr) 250 mg PO TID [facility] Last Admin: 02/12/24 08:39 Dose: 250 mg Documented By: SANTIAGO Lidocaine (Lidocaine 4 % Patch Adh..Patch) 1 patch TRANSDERMA DAILY [facility]; Protocol Last Admin: 02/12/24 08:39 Dose: 1 patch Documented By: SANTIAGO Nicotine Polacrilex (Nicotine Polacrilex 2 Mg Gum) 4 mg BUCCAL Q2H PRN PRN Reason: nicotine addiction Last Admin: 02/12/24 08:39 Dose: 4 mg Documented By: SANTIAGO Ondansetron HCl (Ondansetron Odt 4 Mg Tab.Rapdis) 4 mg TRANSLINGU Q6H PRN PRN Reason: Nausea and Vomiting Last Admin: 12/01/23 23:36 Dose: 4 mg Documented By: JOE Risperidone (Risperidone 1 Mg Tablet) 1 mg PO DAILY [facility] Last Admin: 02/12/24 08:39 Dose: 1 mg Documented By: SANTIAGO Risperidone (Risperidone 2 Mg Tablet) 2 mg PO BEDTIME [facility] Last Admin: 02/11/24 20:31 Dose: 2 mg Documented By: AMILCAR Labs 01/25/24 05:51 01/25/24 05:51 Assessment and Plan (1) Alcoholic Korsakoff syndrome: Status: Acute (2) Opioid use disorder: Status: Acute Plan d130 48yo F with OUD on Suboxone, AUD with Korsakoff syndrome presented with confusion on 09/19/23, awaiting guardianship/LTC placement Korsakoff syndrome - continue quetiapine, valproate, risperidone as per Psychiatry consultation - lacks capacity to make informed medical decisions - no behavioral issues OUD - Suboxone tobacco abuse - NRT VTE ppx - ambulatory In my clinical judgment, the patient requires continued inpatient hospitalization for the following reasons: long-term care placement Total time managing care of this patient today: 25 minutes. Quality Stroke Does the patient have a stroke diagnosis?: No VTE Prior VTE?: No VTE Risk Level:: Medical - low VTE Device Contraindication: Treatment Not Indicated VTE Drug Contraindication: Treatment Not Indicated
--- NOTE | 2024-02-12 11:13 | MHC.CM.PN ---
Patient continues to await LTC placement. No updates on [facility]CA w/ [facility] & [facility]. Rena Lara and [facility] are reviewing. CM will continue to follow.
--- NOTE | 2024-02-12 13:38 | MHC.CM.PN ---
PT HAS NO PCP HE CAN NOT HAVE A [facility] NOHEMI AND RAFFAELE NOLASCO NOTIFIED
[2024-02-12 15:32] VITALS: BP 116/68; PULSE 82; RESP 16; TEMP 36.2; O2SAT 97
[2024-02-12 19:13] VITALS: BP 142/80; PULSE 76; RESP 16; TEMP 36.3; O2SAT 98
[2024-02-12] MEDS: risperiDONE 2 MG TABLET PO (19:22)
[2024-02-13 07:36] VITALS: BP 110/56; PULSE 82; RESP 20; TEMP 36.3; O2SAT 98
[2024-02-13] MEDS: Acetaminophen 325 MG TABLET 650 MG PO (09:10)
[2024-02-13] MEDS: Nicotine Polacrilex 2 MG GUM 4 MG BUCCAL ×3 (09:10→15:25)
[2024-02-13] MEDS: Lidocaine 4 % Patch ADH..PATCH 1 PATCH TRANSDERMA (09:10)
[2024-02-13] MEDS: risperiDONE 1 MG TABLET PO (09:10)
[2024-02-13] MEDS: Divalproex Sodium 250 MG TABLET.DR PO ×2 (09:10→15:05)
[2024-02-13] MEDS: Buprenorphine/Naloxone 8/2 mg FILM 1 FILM SUBLINGUAL (09:11)
[2024-02-13 12:05] VITALS: BP 113/58; PULSE 95; RESP 20; TEMP 36.4; O2SAT 95
--- NOTE | 2024-02-13 12:11 | P.PNIM_ITS ---
Subjective Subjective Date of Service: 02/13/24 Interval History: seen and evaluated no complaints Review of Systems Review of Systems: Yes all other systems are reviewed and are negative Physical Exam 2 Vital Signs: Vital Signs: Last Vital Signs Temp 97.5 F 02/13/24 12:05 Pulse 95 02/13/24 12:05 Resp 20 02/13/24 12:05 BP 113/58 L 02/13/24 12:05 Pulse Ox 95 02/13/24 12:05 O2 Del Method Room Air 02/13/24 12:05 O2 Flow Rate 3 10/05/23 16:00 BMI result Body Mass Index 22.7 Const: Other: General awake alert, no acute distress. CVS regular rate rhythm, Respiratory lungs clear to auscultation, no respiratory distress, no wheeze Gastrointestinal abdomen soft, non tender, bowel sounds audible. Extremities lower extremity edema resolved Neuro speech clear, no focal weakness. Psych impaired insight. Objective Data Active Medications Acetaminophen (Acetaminophen 325 Mg Tablet) 650 mg PO Q6H PRN PRN Reason: Pain, Mild (Pain Scale 1-3) Last Admin: 02/13/24 09:10 Dose: 650 mg Documented By: SANTIAGO Al Hydroxide/Mg Hydroxide (Magnesium Hydrox/Alum Hydrox 30 Ml Oral.Susp) 30 ml PO Q6H PRN PRN Reason: GI Upset Last Admin: 11/19/23 19:16 Dose: 30 ml Documented By: LAMIN Buprenorphine/Naloxone (Buprenorphine/Naloxone 8/2 Mg Film) 1 film SUBLINGUAL BID [facility] Last Admin: 02/13/24 09:11 Dose: 1 film Documented By: SANTIAGO Divalproex Sodium (Divalproex Sodium 250 Mg Tablet.Dr) 250 mg PO TID [facility] Last Admin: 02/13/24 09:10 Dose: 250 mg Documented By: SANTIAGO Lidocaine (Lidocaine 4 % Patch Adh..Patch) 1 patch TRANSDERMA DAILY [facility]; Protocol Last Admin: 02/13/24 09:10 Dose: 1 patch Documented By: SANTIAGO Nicotine Polacrilex (Nicotine Polacrilex 2 Mg Gum) 4 mg BUCCAL Q2H PRN PRN Reason: nicotine addiction Last Admin: 02/13/24 09:10 Dose: 4 mg Documented By: SANTIAGO Ondansetron HCl (Ondansetron Odt 4 Mg Tab.Rapdis) 4 mg TRANSLINGU Q6H PRN PRN Reason: Nausea and Vomiting Last Admin: 12/01/23 23:36 Dose: 4 mg Documented By: JOE Risperidone (Risperidone 1 Mg Tablet) 1 mg PO DAILY [facility] Last Admin: 02/13/24 09:10 Dose: 1 mg Documented By: SANTIAGO Risperidone (Risperidone 2 Mg Tablet) 2 mg PO BEDTIME [facility] Last Admin: 02/12/24 19:22 Dose: 2 mg Documented By: MAICO Labs 01/25/24 05:51 01/25/24 05:51 Assessment and Plan (1) Alcoholic Korsakoff syndrome: Status: Acute Plan d130 48yo F with OUD on Suboxone, AUD with Korsakoff syndrome presented with confusion on 09/19/23, awaiting guardianship/LTC placement Korsakoff syndrome continue quetiapine, valproate, risperidone as per Psychiatry consultation lacks capacity to make informed medical decisions no behavioral issues OUD Suboxone tobacco abuse NRT VTE ppx ambulatory In my clinical judgment, the patient requires continued inpatient hospitalization for the following reasons: long-term care placement Quality Stroke Does the patient have a stroke diagnosis?: No VTE Prior VTE?: No VTE Risk Level:: Medical - low VTE Device Contraindication: Treatment Not Indicated VTE Drug Contraindication: Treatment Not Indicated
[2024-02-13 12:12] VITALS: BP 144/73; PULSE 88; O2SAT 95
--- NOTE | 2024-02-13 13:44 | MHC.CM.PN ---
Patient medically cleared for dc. [facility] has reached an agreement w/ [facility] and is able to accept patient today at 4pm. BLS scheduled for that time. Patient, MD and RN aware. LM for guardian/sister Conchis to inform.
--- NOTE | 2024-02-13 13:54 | PM.DS ---
DS: Providers Provider Date of Service: 02/13/24 Date of admission: 10/04/23 15:08 Primary care physician: Ping Matt NP Consults: 09/19/23 16:39 Consult to Case Management Stat Comment: 09/19/23 17:29 Consult to Psychiatry Stat Consulting Provider: Barb Solano Reason for consultation: Patient with poss Korsakoff's syndrome. Please help assess for capacity. Has provider been notified: Yes 09/19/23 20:29 Consult to Care Team Stat Comment: Reason for consultation: hyperverval, pacing 11/08/23 14:37 Consult to Psychiatry Stat Consulting Provider: Psych Covering Reason for consultation: behavioral agitation 12/04/23 12:56 Consult to Nephrology Routine Consulting Provider: [facility] Reason for consultation: hyponatremia 12/24/23 17:53 Consult to Psychiatry Routine Consulting Provider: Barb Solano Reason for consultation: competency re eval DS: Diagnosis Discharge Diagnosis (1) Alcoholic Korsakoff syndrome: Status: Acute (2) Hyponatremia: Status: Acute (3) Opioid use disorder: Status: Acute DS: Summary Hospital Course Hospital Course: The patient has prolonged hospital stay. for full details please reture to EMR. Admission note HPI Pt is a 48-year-old female with a PMH significant for opioid use disorder on Suboxone, alcohol use disorder, and Korsakoff's syndrome? who initially presented to the ED on?09/19/2023 looking for her Clement that she had not seen for a few days. Pt apparently had heard he was at this hospital so she called an ambulance to bring her here. She seemed poorly oriented so sister was called who said patient has a significant history of Korsakoff syndrome, and that Clement was a paid caregiver for the patient. Pt was apparently here in the ED with Clement yesterday while he was being admitted to the hospital for lower leg cellulitis. She eloped from the ED sometime during that visit and apparently went back to her home. Apparently patient does not have close relationship with her family and parents have disavowed her. Pt was then placed in physician observation and seen and evaluated by psychiatry who determined she did not have capacity to make medical decisions on her own and was unable to care for herself. She has since been in overflow. Apparently she initially had some issues with agitation, exit seeking, and aggression, but has been medically stable. Today pt reports headache but no other acute medical complaints. Is oriented x2, not to time or situation. Pt mumbles and is difficult to understand. Constantly perseverates about going home and seeing family and fiancee. Pt will be admitted to the hospital while awaiting guardianship and LTC placement. Guardianship hearing is scheduled for 10/09/2023. Hospital course The patient was admitted for increase confusion from Korsakoff syndrome. she was started on valproate, risperidone as per Psychiatry consultation while taken off Seroquel. Psychiatry team felt that she lacks capacity to make informed medical decisions. Guardianship was seeked during hospital stay and she will be discharge to [facility] facility for nursing care. no behavioral issues recently as she has been more comfortable but remains easily distracted and confused. Discharge plan Start Divaloproex as prescribed Start Risperidone as prescribed Nicotine gum as needed Lidocaine patch as needed Time Attestation Discharge Coordination Time (in mins): 42 Quality: Safe Use of Opioids Does Pt have an Active Cancer Diagnosis on the Problem List?: No Quality: Stroke Does the patient have a stroke diagnosis?: No Physical Exam Vital Signs: Vital Signs: Last Vital Signs Temp 97.5 F 02/13/24 12:05 Pulse 88 02/13/24 12:12 Resp 20 02/13/24 12:05 BP 144/73 H 02/13/24 12:12 Pulse Ox 95 02/13/24 12:12 O2 Del Method Room Air 02/13/24 12:12 O2 Flow Rate 3 10/05/23 16:00 BMI result Body Mass Index 22.7 Const: Other: General awake alert, no acute distress. CVS regular rate rhythm, Respiratory lungs clear to auscultation, no respiratory distress, no wheeze Gastrointestinal abdomen soft, non tender, bowel sounds audible. Extremities lower extremity edema resolved Neuro speech clear, no focal weakness. Psych impaired insight. DS: Data Imaging Chest x-ray: Radiologist's impression: ITS Impressions Venous Duplex 11/29/23 13:00 IMPRESSION: No DVT demonstrated in the bilateral lower extremity. Chest X-Ray 12/04/23 10:20 IMPRESSION: No acute abnormality. Discharge Plan Discharge Anticipated Discharge Date/Time: 02/13/24 13:50 Patient Disposition: Xfer LTC Discharge Diagnosis: Korsakoff syndrome Referrals: Ping Matt NP [Primary Care Provider] - 01/03/24 1:45 pm (You have a follow up appointment schedule. If you can not make this appointment call office to reschedule. ) Discharge Medications: New lidocaine [Lidocaine Pain Relief] 4 % Adhesive Patch,Medicated 1 patch transdermal DAILY Qty: 90 0RF Protocol: Apply to: Apply to: L shoulder divalproex 250 mg Tablet,Delayed Release (Dr/Ec) 250 mg PO TID Qty: 90 0RF nicotine (polacrilex) 2 mg Gum 4 mg buccal Q2H PRN (Reason: nicotine addiction) Qty: 50 0RF risperidone 2 mg Tablet 2 mg PO BEDTIME Qty: 90 0RF ondansetron 4 mg Tablet,Disintegrating 4 mg translingual Q6H PRN (Reason: Nausea And Vomiting) Qty: 30 0RF risperidone 1 mg Tablet 1 mg PO DAILY Qty: 90 0RF Continued vitamin B complex-folic acid 0.4 mg tablet 1 tab PO DAILY buprenorphine-naloxone [Suboxone] 8-2 mg film 1 film sublingual BID Qty: 60 0RF Discontinued quetiapine 100 mg tablet 100 mg PO BEDTIME Discharge Orders: Discharge Order (Routine); Ordered 02/13/24 Ordered By: Wilma Martínez Diet: Advance to usual diet Activity on Discharge: As tolerated Stand Alone Forms: Patient Portal Discharge page Print Language: Khmer Care Plan Goals: Start Divaloproex as prescribed Start Risperidone as prescribed Nicotine gum as needed Lidocaine patch as needed Health Concerns: Read below Plan of Treatment: Read below Assessment: Read below
== END 2024-02-13 17:23 | DRG 773 ==
LOC: HO.ED 09-27 06:47 → HO.EDOVER 10-04 17:12 → HO.S3 10-04 17:32
PROVIDERS: Hospitalist; Nurse Practitioner Acute Care; Physician Assistant; Physician Assistant Medical; Social Worker; Student in an Organized Health Care Education/Training Program; Admitting Provider Student in an Organized Health Care Education/Training Program; Emergency Provider Emergency Medicine; PCP Nurse Practitioner Primary Care; Visit Provider Student in an Organized Health Care Education/Training Program
DX: F10.96 Alcohol use, unspecified with alcohol-induced persisting amnestic disorder (principal); F11.20 Opioid dependence, uncomplicated; E87.1 Hypo-osmolality and hyponatremia; R45.851 Suicidal ideations; J06.9 Acute upper respiratory infection, unspecified; B97.81 Human metapneumovirus as the cause of diseases classified elsewhere; F17.210 Nicotine dependence, cigarettes, uncomplicated; Z71.6 Tobacco abuse counseling; R60.0 Localized edema; Z20.822 Contact with and (suspected) exposure to COVID-19; H60.391 Other infective otitis externa, right ear; M25.512 Pain in left shoulder; Z91.83 Wandering in diseases classified elsewhere; Z75.1 Person awaiting admission to adequate facility elsewhere; Z79.899 Other long term (current) drug therapy
CPT/HCPCS: 36415; 71045; 80048; 80053; 80076; 80164; 80307; 81001; 81003; 82040; 82436; 82570; 83735; 83880; 83930; 83935; 84133; 84300; 84443; 85025; 85027; 87633; 93970; 99285; J1200; J1630; J2250; J2359; S9485

== ENCOUNTER → 2023-09-19 14:09 | Outpatient (BNV) | payer OTHER, SELFPAY | PROVIDERS: Emergency Provider Emergency Medicine; Visit Provider Social Worker | DX: F10.96 Alcohol use, unspecified with alcohol-induced persisting amnestic disorder (principal) | CPT/HCPCS: 99232; 99285; 99499 ==

== ENCOUNTER → 2023-10-04 15:08 | Outpatient (BNV) | payer MEDICAID, SELFPAY | PROVIDERS: Admitting Provider Student in an Organized Health Care Education/Training Program; Emergency Provider Emergency Medicine; PCP Nurse Practitioner Primary Care; Visit Provider Internal Medicine Hypertension Specialist | DX: E87.1 Hypo-osmolality and hyponatremia (principal); R22.43 Localized swelling, mass and lump, lower limb, bilateral | CPT/HCPCS: 99223 ==

== ENCOUNTER → 2023-10-04 15:08 | Outpatient (BNV) | payer MEDICAID, SELFPAY | PROVIDERS: Admitting Provider Student in an Organized Health Care Education/Training Program; Emergency Provider Emergency Medicine; Visit Provider Student in an Organized Health Care Education/Training Program | DX: F10.96 Alcohol use, unspecified with alcohol-induced persisting amnestic disorder (principal); F11.90 Opioid use, unspecified, uncomplicated | CPT/HCPCS: 99222; 99223; 99231; 99232; 99233; 99239; 99499 ==

== ENCOUNTER → 2024-03-10 08:15 | Outpatient (BNV) | payer MEDICAID, SELFPAY | PROVIDERS: PCP Hospitalist; Visit Provider Radiology Diagnostic Radiology | DX: Z12.31 Encounter for screening mammogram for malignant neoplasm of breast (principal) | CPT/HCPCS: 77063; 77067 ==

== ENCOUNTER 2024-03-10 08:39 | Outpatient (REF) | payer MEDICAID, SELFPAY ==
--- NOTE | ~2024-03-10 | MM_ITS ---
EXAMINATION: MM SCREENING DIGITAL BREAST TOMOSYNTHESIS, BILATERAL CLINICAL INFORMATION: Screening. Asymptomatic. COMPARISON: Mammography: This is a baseline mammogram. TECHNIQUE: Digital breast tomosynthesis is performed in both the craniocaudal and mediolateral oblique views along with computer-aided detection (CAD). Synthesized 2D images are generated from the tomosynthesis. FINDINGS: The breasts are heterogeneously dense, which may obscure small masses (ACR BI-RADS breast composition Category c). There are no significant masses, abnormal calcifications, or other abnormalities. MM/MM tomosynthesis screening BI IMPRESSION: No mammographic evidence of malignancy. ASSESSMENT: BI-RADS BI-RADS 1 - Negative RECOMMENDATION: Routine annual mammography screening. 1 year F/U This examination should not preclude the clinical evaluation of a suspicious palpable abnormality. This patient's information was entered into a reminder system with a target due date for their next mammogram.
== END 2024-03-10 08:40 | disposition home or self-care (01) ==
LOC: HO.MAMMO 08:39
PROVIDERS: PCP Hospitalist; Visit Provider Hospitalist
DX: Z12.31 Encounter for screening mammogram for malignant neoplasm of breast (principal)
CPT/HCPCS: 77063; 77067